=== PATIENT | female | born 1940 | race Caucasian/White ===

== ENCOUNTER 2023-02-02 14:46 | Outpatient (OUT) | payer MEDICARE, SELFPAY ==
--- NOTE | 2023-02-02 15:56 | CA_ITS ---
Patient: MAUREEN GARCÍA Exam Date: 02/02/2023 : 1940 Gender:F Ordering : GRACIA PENA Admission #: [id number] Family : Order #: [id number] CLICK HERE TO VIEW EXAM ECHOCARDIOGRAM REPORT PROCEDURE: CA ECHO DOPPLER COMPLETE INDICATIONS: Paroxysmal Atrial Fibrillation COMPARISON: None. DESCRIPTION: COMPLETE ECHOCARDIOGRAM Real-time transthoracic echocardiography with 2D, M-mode, spectral and color flow Doppler performed. QUALITY: Technical quality was good. LEFT VENTRICLE: Normal chamber size. Normal left ventricular wall thickness. LV EF: Global left ventricular systolic function is moderately decreased; visually estimated ejection fraction is 35-40%. Global hypokinesis. Abnormal septal motion; may be related to bundle branch block. DIASTOLIC: Not adequately assessed due to heart rhythm. ATRIAL SEPTUM: Inadequately seen. LEFT ATRIUM: Severe dilatation. RIGHT ATRIUM: Moderate dilatation. RIGHT VENTRICLE: Normal chamber size. Normal right ventricular systolic function. TRICUSPID VALVE: Normal mobility and thickness. Severe regurgitation. No evidence of pulmonary hypertension. RVSP 26mmHg MITRAL VALVE: Mildly thickened with normal mobility. No evidence of mitral valve stenosis. Mild mitral annular calcification. Moderate to severe mitral regurgitation. AORTIC VALVE: Normal trileaflet appearance. Moderately calcified aortic valve. Moderately diminished mobility. Doppler velocity suggests moderate aortic valve stenosis. DVI 0.38, MARGARITA 1.2cm2, Vmax 2.1m/s, Mean gradient 18mmHg.No aortic regurgitation. AORTIC ROOT: Normal diameter and appearance. PULMONIC VALVE: Normal thickness and mobility. No stenosis. No regurgitation. PERICARDIUM: No evidence of pericardial effusion. IVC: Collapses with inspirations. Normal size. CONCLUSION: 1. Global left ventricular systolic function is moderately decreased; visually estimated ejection fraction is 35 to 40%; global hypokinesis 2. Moderate to severe biatrial enlargement 3. The right ventricle is normal in size and systolic function 4. Severe tricuspid regurgitation 5. Moderate to severe mitral regurgitation 6. Moderate aortic valve stenosis Adult Echocardiography Procedure Report Left Ventricle LVEDD (3.7 - 5.6 cm): 4.32 cm LVESD (2.2 - 4.0 cm): 3.60 cm LVIVS thickness (0.6 - 1.2 cm): 0.99 cm LVPW thickness (0.5 - 1.0 cm): 0.84 cm e': 0.12 m/s E - e': 9.49 LVOT Max Gradient: 2.62 mm[Hg] LVOT Area (cm2): 0.81 m/s Peak Velocity (LVOT): 0.81 m/s Mean Velocity (LVOT): 0.58 m/s LVOT Diameter 1.97 cm Left Ventricular Ejection Fraction: 39.78 % Left Atrium LA Volume Index (2D A2C): 48.83 ml/m2 Left Atrium Systolic Dimension: 4.62 cm Mitral Valve MV E to A Ratio: 188.70 Mitral Valve A-Wave Peak Velocity: 0.01 m/s Mitral Valve E-Wave Peak Velocity: 1.10 m/s Right Ventricle RV Internal Diastolic Dimension: 2.98 cm Aorta AO Root Diam: 2.65 cm Ascending Ao Diam: 2.37 cm Aortic Valve AoV Area (Peak Adam): 1.18 cm2, 1.19 cm2 AoV Area (VTI): 1.13 cm2, 1.18 cm2 Peak Velocity(Antegrade Flow): 2.07 m/s, 2.10 m/s, 2.10 m/s, 2.09 m/s Peak Gradient(Antegrade Flow): 17.09 mm[Hg], 17.69 mm[Hg], 17.69 mm[Hg], 17.45 mm[Hg] Mean Velocity(Antegrade Flow): 1.54 m/s, 1.58 m/s, 1.56 m/s, 1.59 m/s Mean Gradient(Antegrade Flow): 10.62 mm[Hg], 11.11 mm[Hg], 10.87 mm[Hg], 11.04 mm[Hg] Velocity Time Integral: 41.45 cm, 43.82 cm, 44.76 cm, 42.19 cm Tricuspid Valve Peak Velocity (Regurgitant Flow): 2.35 m/s, 2.40 m/s, 2.40 m/s, 2.46 m/s, 2.27 m/s Pulmonic Valve Mean Gradient: 2.92 mm[Hg] Mean Velocity: 0.83 m/s Peak Velocity: 1.09 m/s, 0.82 m/s Peak Gradient: 2.72 mm[Hg], 4.74 mm[Hg] Right Atrium Right Atrium Systolic Pressure: 45.53 ml, 45.53 ml Dictated by: Carl Kuhn M.D. on 02/06/2023 at 09:56 Approved by: Carl Kuhn M.D. on 02/06/2023 at 10:00
== END 2023-02-02 14:47 | disposition home or self-care (01) ==
LOC: CARD 14:50
PROVIDERS: PCP Family Medicine; Visit Provider Nurse Practitioner
DX: I48.0 Paroxysmal atrial fibrillation (principal); I08.3 Combined rheumatic disorders of mitral, aortic and tricuspid valves
CPT/HCPCS: 93306

== ENCOUNTER 2023-02-06 16:58 | Emergency (ER) | payer MEDICARE, SELFPAY ==
--- NOTE | 2023-02-06 17:03 | CT_ITS ---
The [address] [address] Patient Name: MAUREEN GARCÍA MRN: [id number] date: 1940 Sex: F Assigned Patient Location: ER Current Patient Location: ER Accession/Order Number: [id number] Exam Date: 02/06/2023 17:27 Report Date: 02/06/2023 18:09 At the request of: NISA BRAY Procedure: CT head/brain wo con EXAMINATION: CT head/brain wo con, CT cervical spine wo con HISTORY: fall, head injury COMPARISON: None. TECHNIQUE: CT scan of the head and cervical spine was performed without IV contrast. CT dose reduction technique was used, including Automated Exposure Control. FINDINGS: There are no extra-axial fluid collections. There is no mass effect or midline shift. The cerebral ventricles and sulci are normal. The brain demonstrates normal attenuation. Basal cisterns are patent. There is bilateral subcortical and deep periventricular white matter chronic microvascular ischemia. There is mucosal thickening of the right maxillary sinus. Bilateral orbits, remaining paranasal sinuses and mastoid air cells are patent. No skull base fracture. Cervical spine: There is normal cervical lordosis. Atlantodental interval is normal. There are degenerative changes of the cervical spine fractures by endplate osteophyte and multilevel disc desiccation. No significant neural foraminal or spinal canal stenosis. No spondylolisthesis. No prevertebral soft tissue swelling. No evidence for fracture. CT/CT head/brain wo con IMPRESSION: No acute traumatic intracranial process. No cervical spine fracture or subluxation. Electronically authenticated by: ASHLEIGH CHOU Date: 02/06/2023 18:09
--- NOTE | 2023-02-06 17:03 | XR_ITS ---
The [address] [address] Patient Name: MAUREEN GARCÍA MRN: [id number] date: 1940 Sex: F Assigned Patient Location: ER Current Patient Location: ED.MAIN Accession/Order Number: [id number] Exam Date: 02/06/2023 17:27 Report Date: 02/06/2023 18:20 At the request of: NISA BRAY Procedure: XR hand NICKOLAS min 3v EXAM: XR hand NICKOLAS min 3v HISTORY: pain s/p fall COMPARISON: None. TECHNIQUE: 3 views of bilateral hands FINDINGS: Right hand: There is no acute fracture or dislocation. Degenerative changes of the PIP and DIP joints as well as first carpometacarpal joint are noted. No soft tissue abnormality. Left hand: There is no acute fracture or dislocation. Degenerative changes of the PIP and DIP joints as well as first carpometacarpal joint are noted. No soft tissue abnormality. XR/XR hand NICKOLAS min 3v IMPRESSION: No acute fracture or dislocation. Electronically authenticated by: ASHLEIGH CHOU Date: 02/06/2023 18:20
--- NOTE | 2023-02-06 17:03 | CT_ITS ---
The [address] [address] Patient Name: MAUREEN GARCÍA MRN: [id number] date: 1940 Sex: F Assigned Patient Location: ER Current Patient Location: ER Accession/Order Number: [id number] Exam Date: 02/06/2023 17:27 Report Date: 02/06/2023 18:09 At the request of: NISA BRAY Procedure: CT cervical spine wo con EXAMINATION: CT head/brain wo con, CT cervical spine wo con HISTORY: fall, head injury COMPARISON: None. TECHNIQUE: CT scan of the head and cervical spine was performed without IV contrast. CT dose reduction technique was used, including Automated Exposure Control. FINDINGS: There are no extra-axial fluid collections. There is no mass effect or midline shift. The cerebral ventricles and sulci are normal. The brain demonstrates normal attenuation. Basal cisterns are patent. There is bilateral subcortical and deep periventricular white matter chronic microvascular ischemia. There is mucosal thickening of the right maxillary sinus. Bilateral orbits, remaining paranasal sinuses and mastoid air cells are patent. No skull base fracture. Cervical spine: There is normal cervical lordosis. Atlantodental interval is normal. There are degenerative changes of the cervical spine fractures by endplate osteophyte and multilevel disc desiccation. No significant neural foraminal or spinal canal stenosis. No spondylolisthesis. No prevertebral soft tissue swelling. No evidence for fracture. CT/CT cervical spine wo con IMPRESSION: No acute traumatic intracranial process. No cervical spine fracture or subluxation. Electronically authenticated by: ASHLEIGH CHOU Date: 02/06/2023 18:09
--- NOTE | 2023-02-06 17:04 | ECG_ITS ---
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
[2023-02-06 17:05] VITALS: BP 109/75; PULSE 126; RESP 20; TEMP 36.8; O2SAT 98; BMI 28.3
--- NOTE | 2023-02-06 17:06 | ED.FALL1 ---
HPI - Fall General Chief Complaint: Fall Stated Complaint: fall Time Seen by Provider: 02/06/23 17:03 Source: patient Source comment: EMS Mode of arrival: ambulance History of Present Illness HPI Narrative: patient is a 82-year-old female presents to the Emergency Room for evaluation of injuries from a fall. Patient alert and oriented ?4 GCS of fifteen on eliquis with history of atrial fibrillation. Patient states she was walking into [place] when she tripped on the corner curb. Patient landed on her palms and struck the left side of her forehead and chin. She denies loss of consciousness, denies dental injury. She has a laceration to the middle finger at the PIP joint dorsal aspect. Bleeding controlled on arrival. She denies any chest pain or shortness of breath. Patient reports mild headache, denies neck pain. She appears in no distress. MD complaint: Reports fall Fall from: Reports standing Place fall occurred: Reports street Loss of consciousness: none Context: Reports tripped/slipped Location of injury: Reports head Related Data Home Medications Medication Instructions Recorded Confirmed amlodipine 10 mg tablet 10 mg PO Q24H 02/06/23 02/06/23 apixaban 5 mg tablet (Eliquis) 5 mg PO Q12H 02/06/23 02/06/23 atorvastatin 20 mg tablet 20 mg PO Q24H 02/06/23 02/06/23 azathioprine 50 mg tablet 50 mg PO Q24H 02/06/23 02/06/23 azelastine 137 mcg (0.1 %) nasal 137 mcg intranasal Q12H 02/06/23 02/06/23 spray aerosol balsalazide 750 mg capsule 750 mg PO Q24H 02/06/23 02/06/23 bupropion HCl 150 mg 24 hr tablet, 150 mg PO Q24H 02/06/23 02/06/23 extended release levothyroxine 100 mcg tablet 100 mcg PO Q24H 02/06/23 02/06/23 (Synthroid) losartan 50 mg tablet 50 mg PO Q24H 02/06/23 02/06/23 metoprolol succinate 25 mg 25 mg PO Q12H 02/06/23 02/06/23 tablet,extended release 24 hr pantoprazole 40 mg tablet,delayed 40 mg PO Q12H 02/06/23 02/06/23 release potassium chloride 8 mEq 8 meq PO Q24H 02/06/23 02/06/23 tablet,extended release venlafaxine 75 mg capsule,extended 75 mg PO Q24H 02/06/23 02/06/23 release 24 hr Allergies Allergy/AdvReac Type Severity Reaction Status Date / Time adhesive tape Allergy Mild Verified 02/06/23 17:03 Sulfa (Sulfonamide AdvReac Intermediate Verified 02/06/23 17:03 Antibiotics) Review of Systems ROS Constitutional Denies: fever or chills Eyes Denies: change in vision or blurry vision (history of macular degeneration denies any acute symptoms) Ears, nose, mouth, and throat Denies: throat pain Cardiovascular Denies: chest pain or palpitations Respiratory Denies: shortness of breath or cough Gastrointestinal Denies: abdominal pain or nausea Genitourinary Denies: painful urination or urinary frequency Musculoskeletal Denies: back pain, neck pain or extremity pain Integumentary/Breast Denies: rash, itching or redness Neurological Denies: headache Psychiatric Denies: anxiety or mood swings Allergic/Immunologic Denies: hives [facility] Medical History (Updated 02/06/23 @ 18:20 by NOAH Ortega) Social History Smoking status: Former smoker Exam Narrative Exam Narrative: Nurses note and vital signs reviewed and patient is not hypoxic. General: The patient appears well and in no apparent distress. Patient is resting comfortably on cart. GCS = 15. Skin: Warm, dry, no pallor noted.superficial abrasion to the left brow, left chin. Bleeding controlled, subtle bruising noted. Patient has a near full-thickness abrasion/laceration less than 1 cm to the dorsal aspect of the right ring middle finger at the PIP joint. Bleeding controlled.abrasions bilateral palms Head: Normocephalic,evidence of left frontal contusion and abrasion. Neck: Supple, trachea mid-line, no tenderness, no lymphadenopathy. Full ROM and no cervical spinal tenderness. The patient has no step-offs or crepitus noted Eyes: PERRLA, EOMI, history of cataract surgery ENT: TM's clear, no hemotympanum detected, no blood in posterior oropharynx Cardiovascular: Irregularly irregular with history of A-fib. Respiratory: Patient is in no distress, no accessory muscle use, lungs are clear to auscultation, no wheezing, rales or rhonchi Chest Wall: no tenderness, no flail chest, contusion, abrasion, or signs of trauma. Back: Back has no evidence of trauma, including contusion, abrasion, swelling or ecchymosis. The patient had no evidence of step-offs or creptitace noted. No tenderness to palpation. Negative straight leg raise bilaterally. Musculoskeletal: normal ROM, no tenderness, no swelling. localized abrasion and tenderness bilateral palms/base of thumb. Denies any wrist pain bilaterally. Pulses at femoral, DP, PT, and popiteal were 2+ bilaterally. Moves all four extremities in all modalities with 5/5 strength. GI: Normal bowel sounds, no tenderness to palpation, no masses appreciated. No rebound, guarding, or rigidity noted. Neurological: A&O x4, normal equal director mba strength, normal speech, normal coordination, normal motor, normal sensory. Psychiatric: Cooperative Constitutional Vital Signs, click to edit/add: Last Vital Signs Temp 98.2 F 02/06/23 17:05 Pulse 126 H 02/06/23 17:05 Resp 20 02/06/23 17:05 BP 109/75 02/06/23 17:05 Pulse Ox 98 02/06/23 17:26 O2 Del Method Room Air 02/06/23 17:26 Course Vital Signs Vital signs: Vital Signs Temperature 98.2 F 02/06/23 17:05 Pulse Rate 126 H 02/06/23 17:05 Respiratory Rate 20 02/06/23 17:05 Blood Pressure 109/75 02/06/23 17:05 Pulse Oximetry 98 02/06/23 17:05 Oxygen Delivery Method Room Air 02/06/23 17:05 Temperature 98.2 F 02/06/23 17:05 Pulse Rate 126 H 02/06/23 17:05 Respiratory Rate 20 02/06/23 17:05 Blood Pressure 109/75 02/06/23 17:05 Pulse Oximetry 98 02/06/23 17:26 Oxygen Delivery Method Room Air 02/06/23 17:26 MDM - Fall MDM Narrative Medical decision making narrative: tetanus shot updated, wounds cleansed and dressed with bacitracin. Recommend x-rays bilateral hands given fall with abrasions and tenderness to the bilateral palms and right middle finger. CT will be performed ahead along with CT C-spine given eliquis use and head trauma CT negative. Cranial hemorrhage, CT C-spine without evidence of fracture. X-ray of bilateral hands preliminary report without evidence of fracture, prominent CMC arthritis bilateral thumb joints. Patient able to open and close hands, no evidence of extensor tendon disruption. Sutures placed as noted above with need for suture removal in ten days discussed. Verbal and written closed head injury instructions reviewed, patient will need to follow-up with her family doctor or return to Emergency Room for suture removal in ten days. The patient is to followup with primary care physician in next 2-3 days or to return to the emergency department should any of the signs or symptoms worsen or new symptoms develop. Patient had questions answered. The patient agrees with the following Diagnosis and Treatment plan and the patient will be discharged home. Lab Data Labs: Lab Results 02/06/23 Range/Units 17:18 WBC 5.7 (4.0-11.0) 10^3/uL RBC 3.61 L (4.20-5.40) 10^6/uL Hgb 11.8 L (12.0-16.0) g/dL Hct 34.9 L (36.0-48.0) % MCV 96.7 (81.0-99.0) fL MCH 32.7 (26.7-34.0) pg MCHC 33.8 (29.9-35.2) g/dL RDW 14.3 (11.0-15.0) % Plt Count 203 (150-450) 10^3/uL MPV 9.4 L (9.5-13.5) fL Neut % (Auto) 65.1 (43.0-75.0) % Lymph % (Auto) 21.9 (20.5-60.0) % Gilchrist % (Auto) 10.3 (1.7-12.0) % Eos % (Auto) 1.8 (0.9-7.0) % Baso % (Auto) 0.4 (0.2-2.0) % Neut # (Auto) 3.7 (1.4-6.5) 10^3/uL Lymph # (Auto) 1.3 (1.2-3.8) 10^3/uL Gilchrist # (Auto) 0.6 (0.3-0.8) 10^3/uL Eos # (Auto) 0.1 (0.0-0.7) 10^3/uL Baso # (Auto) 0.0 (0.0-0.1) 10^3/uL Abs Immat Gran (auto) 0.03 (0.00-0.03) 10^3/uL Imm/Tot Granulo (auto) 0.5 (0.0-0.5) % PT 10.3 (9.0-11.6) sec INR 0.97 APTT 24.0 (22.3-36.2) sec Sodium 141 (136-145) mmol/L Potassium 4.7 (3.5-5.1) mmol/L Chloride 106 (98-107) mmol/L Carbon Dioxide 30.5 (21.0-32.0) mmol/L Anion Gap 9.2 BUN 14.0 (7.0-18.0) mg/dL Creatinine 0.93 (0.55-1.02) mg/dL Est GFR ( Amer) >60 (>=60) Est GFR (Non-Af Amer) 58 L (>=60) BUN/Creatinine Ratio 15.1 Glucose 99 (74-106) mg/dL Calcium 8.9 (8.5-10.1) mg/dL Imaging Data CT scan - head: Radiologist's impression: Procedure: CT head/brain wo con EXAMINATION: CT head/brain wo con, CT cervical spine wo con HISTORY: fall, head injury COMPARISON: None. TECHNIQUE: CT scan of the head and cervical spine was performed without IV contrast. CT dose reduction technique was used, including Automated Exposure Control. FINDINGS: There are no extra-axial fluid collections. There is no mass effect or midline shift. The cerebral ventricles and sulci are normal. The brain demonstrates normal attenuation. Basal cisterns are patent. There is bilateral subcortical and deep periventricular white matter chronic microvascular ischemia. There is mucosal thickening of the right maxillary sinus. Bilateral orbits, remaining paranasal sinuses and mastoid air cells are patent. No skull base fracture. Cervical spine: There is normal cervical lordosis. Atlantodental interval is normal. There are degenerative changes of the cervical spine fractures by endplate osteophyte and multilevel disc desiccation. No significant neural foraminal or spinal canal stenosis. No spondylolisthesis. No prevertebral soft tissue swelling. No evidence for fracture. IMPRESSION: No acute traumatic intracranial process. No cervical spine fracture or subluxation. Electronically authenticated by: [facility] Date: 02/06/2023 18:09 xray bilateral hands: Radiologist's impression: Procedure: XR hand NICKOLAS min 3v EXAM: XR hand NICKOLAS min 3v HISTORY: pain s/p fall COMPARISON: None. TECHNIQUE: 3 views of bilateral hands FINDINGS: Right hand: There is no acute fracture or dislocation. Degenerative changes of the PIP and DIP joints as well as first carpometacarpal joint are noted. No soft tissue abnormality. Left hand: There is no acute fracture or dislocation. Degenerative changes of the PIP and DIP joints as well as first carpometacarpal joint are noted. No soft tissue abnormality. IMPRESSION: No acute fracture or dislocation. Electronically authenticated by: ASHLEIGHANIYAH PRIETOBandhappy Date: 02/06/2023 18:20 ECG Data Attestation: I personally reviewed and interpreted this ECG as follows: Interpretation: EKG interpretation: Emergency Department physician interpretation,Afib with RVR 119, right bundle branch block, no ST elevation. Discharge Plan Discharge Chief Complaint: Fall Clinical Impression: Closed head injury, Laceration of right middle finger, Abrasion of face and extremities Patient Disposition: Home, Self-Care Time of Disposition Decision: 18:19 Condition: Good Prescriptions / Home Meds: No Action amlodipine 10 mg tablet 10 mg PO Q24H Eliquis 5 mg tablet 5 mg PO Q12H metoprolol succinate 25 mg tablet extended release 24 hr 25 mg PO Q12H atorvastatin 20 mg tablet 20 mg PO Q24H azathioprine 50 mg tablet 50 mg PO Q24H azelastine 137 mcg (0.1 %) aerosol,spray 137 mcg INTRANASAL Q12H balsalazide 750 mg capsule 750 mg PO Q24H bupropion HCl 150 mg tablet extended release 24 hr 150 mg PO Q24H levothyroxine [Synthroid] 100 mcg tablet 100 mcg PO Q24H losartan 50 mg tablet 50 mg PO Q24H pantoprazole 40 mg tablet,delayed release (DR/EC) 40 mg PO Q12H potassium chloride 8 mEq tablet extended release 8 meq PO Q24H venlafaxine 75 mg capsule,extended release 24hr 75 mg PO Q24H Instructions: Head Injury (ED), Finger Laceration (ED) Additional Instructions: recommend suture removal in ten days, wear splint daily. Keep wound clean and dry, water may run over abrasions and laceration in two days. . No submerging wounds. Stand Alone Forms: Portal Instructions Referrals: Sonali Ponce MD [Primary Care Provider] - 1 week Procedures ED Laceration Laceration Laceration 1: Additional comments: Laceration repair: Done under sterile conditions. right middle finger PIP joint. The use of Betadine was used to prep and clean the area. Local injection with lidocaine 1% was used, approximately 1 cc. The wound was irrigated copiously with normal saline. The wound was explored there was no evidence of foreign material. no evidence of extensor tendon involvement, no joint capsule penetration visible. The laceration was approximated with 5-0 prolene. 3 simple interrupted sutures were placed. Patient tolerated the procedure well. The patient was neurovascularly intact post. the patient had bacitracin applied to the laceration and a dry sterile dressing was place. The patient will need to follow-up in the next 10 days for removal. patient placed in a aluminum foam splint to immobilize the PIP joint for optimal wound healing. We discussed very gentle flexion of the DIP joint as tolerated given her arthritis and flexion of the MCP joint to help combat stiffness. Discussed need to return to range of motion after suture removal and wound is healed. Patient verbalizes understanding.
[2023-02-06 17:26] VITALS: O2SAT 98
[2023-02-06 17:26] LABS: Basophils Percent Auto 0.4 % (0.2-2.0); Eosinophils Absolute Auto 0.1 10^3/uL (0.0-0.7); Eosinophils Percent Auto 1.8 % (0.9-7.0); Hematocrit 34.9 % (36.0-48.0); Hemoglobin 11.8 g/dL (12.0-16.0); Immature Granulocytes Abs Auto 0.03 10^3/uL (0.00-0.03); Immature Granulocytes Pct Auto 0.5 % (0.0-0.5); Lymphocytes Absolute Auto 1.3 10^3/uL (1.2-3.8); Lymphocytes Percent Auto 21.9 % (20.5-60.0); Mean Corpuscular HGB Conc 33.8 g/dL (29.9-35.2); Mean Corpuscular Hemoglobin 32.7 pg (26.7-34.0); Mean Corpuscular Volume 96.7 fL (81.0-99.0); Mean Platelet Volume 9.4 fL (9.5-13.5); Monocytes Absolute Auto 0.6 10^3/uL (0.3-0.8); Monocytes Percent Auto 10.3 % (1.7-12.0); Neutrophils Absolute Auto 3.7 10^3/uL (1.4-6.5); Neutrophils Percent Auto 65.1 % (43.0-75.0); Platelet Count 203 10^3/uL (150-450); Red Blood Count 3.61 10^6/uL (4.20-5.40); Red Cell Distribution Width 14.3 % (11.0-15.0); White Blood Count 5.7 10^3/uL (4.0-11.0)
[2023-02-06 17:32] LABS: Anion Gap 9.2; BUN Creatinine Ratio 15.1; Calcium 8.9 mg/dL (8.5-10.1); Carbon Dioxide 30.5 mmol/L (21.0-32.0); Chloride 106 mmol/L (98-107); Estimated GFR (African America >60 (>=60); Estimated GFR (Non-African Ame 58 (>=60); Glucose 99 mg/dL (74-106); Potassium 4.7 mmol/L (3.5-5.1); Sodium 141 mmol/L (136-145)
[2023-02-06 17:33] VITALS: PULSE 119
[2023-02-06 17:40] LABS: INR 0.97; Prothrombin Time 10.3 sec (9.0-11.6)
[2023-02-06] MEDS: BACITRACIN OINTMENT 28.4 GM TUBE 1 APPLIC TOPICAL (17:45)
[2023-02-06] MEDS: ADACEL DIPH,PERTUSS(ACELL),TET VAC/PF 0.5 ML ADULT SYRINGE IM (17:46)
[2023-02-06] MEDS: LIDOCAINE HCL 1% PF 20 MG/2 ML VIAL INJ (17:53)
[2023-02-06 18:35] VITALS: BP 126/86; PULSE 116; RESP 18; O2SAT 98
== END 2023-02-06 18:42 | disposition home or self-care (01) ==
PROVIDERS: Personal Emergency Response Attendant; Emergency Provider Emergency Medicine; PCP Family Medicine
DX: S61.212A Laceration without foreign body of right middle finger without damage to nail, initial encounter (principal); S09.8XXA Other specified injuries of head, initial encounter; S00.81XA Abrasion of other part of head, initial encounter; S60.512A Abrasion of left hand, initial encounter; S60.511A Abrasion of right hand, initial encounter; Z79.01 Long term (current) use of anticoagulants; I48.91 Unspecified atrial fibrillation; W01.10XA Fall on same level from slipping, tripping and stumbling with subsequent striking against unspecified object, initial encounter; Z23 Encounter for immunization; Z87.891 Personal history of nicotine dependence; Z79.899 Other long term (current) drug therapy; Z79.890 Hormone replacement therapy
CPT/HCPCS: 12001; 36415; 70450; 72125; 73130; 80048; 85025; 85610; 85730; 90471; 90715; 93005; 99285

== ENCOUNTER 2023-02-20 14:22 | Outpatient (OUT) | payer MEDICARE, SELFPAY ==
[2023-02-20 14:47] LABS: Basophils Percent Auto 0.4 % (0.2-2.0); Eosinophils Absolute Auto 0.1 10^3/uL (0.0-0.7); Eosinophils Percent Auto 1.8 % (0.9-7.0); Hematocrit 36.1 % (36.0-48.0); Hemoglobin 12.2 g/dL (12.0-16.0); Immature Granulocytes Abs Auto 0.03 10^3/uL (0.00-0.03); Immature Granulocytes Pct Auto 0.4 % (0.0-0.5); Lymphocytes Absolute Auto 1.7 10^3/uL (1.2-3.8); Lymphocytes Percent Auto 24.1 % (20.5-60.0); Mean Corpuscular HGB Conc 33.8 g/dL (29.9-35.2); Mean Corpuscular Hemoglobin 32.1 pg (26.7-34.0); Mean Platelet Volume 9.6 fL (9.5-13.5); Monocytes Absolute Auto 0.6 10^3/uL (0.3-0.8); Monocytes Percent Auto 8.6 % (1.7-12.0); Neutrophils Absolute Auto 4.6 10^3/uL (1.4-6.5); Neutrophils Percent Auto 64.7 % (43.0-75.0); Platelet Count 304 10^3/uL (150-450); Red Cell Distribution Width 14.2 % (11.0-15.0); White Blood Count 7.1 10^3/uL (4.0-11.0)
[2023-02-20 15:12] LABS: Anion Gap 15.1; BUN Creatinine Ratio 15.5; Calcium 8.8 mg/dL (8.5-10.1); Carbon Dioxide 26.9 mmol/L (21.0-32.0); Chloride 103 mmol/L (98-107); Estimated GFR (African America 58 (>=60); Estimated GFR (Non-African Ame 48 (>=60); Glucose 96 mg/dL (74-106); Sodium 140 mmol/L (136-145)
== END 2023-02-20 14:23 | disposition home or self-care (01) ==
LOC: LAB 14:25
PROVIDERS: PCP Family Medicine; Visit Provider Internal Medicine Cardiovascular Disease
DX: Z01.818 Encounter for other preprocedural examination (principal)
CPT/HCPCS: 36415; 80048; 85025

== ENCOUNTER 2023-04-10 14:12 | Emergency (ER) | payer MEDICARE, SELFPAY ==
[2023-04-10] VITALS (14 sets, daily range): BP systolic 90–121; BP diastolic 45–69; PULSE 0–77; RESP 9–21; TEMP 36.7; O2SAT 94–100; BMI 27.4
--- NOTE | 2023-04-10 14:29 | ECG_ITS ---
The 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
--- NOTE | 2023-04-10 14:29 | XR_ITS ---
The [address] [address] Patient Name: MAUREEN GARCÍA MRN: [id number] date: 1940 Sex: F Assigned Patient Location: ED.MAIN Current Patient Location: ED.MAIN Accession/Order Number: [id number] Exam Date: 04/10/2023 14:45 Report Date: 04/10/2023 15:15 At the request of: BECKY LOPEZ Procedure: XR chest 1V EXAMINATION: XR chest 1V HISTORY: near-syncope COMPARISON: No relevant comparison available. TECHNIQUE: AP portable FINDINGS: LUNGS: No significant pulmonary parenchymal abnormalities. VASCULATURE: No increased pulmonary vasculature. PLEURA: No pneumothorax, effusion, or pleural thickening. CARDIAC: No cardiomegaly or cardiac silhouette abnormality. MEDIASTINUM: No visible mass or adenopathy. BONES: No fracture or visible bone lesion. OTHER: Retrocardiac opacity possibly a hiatal hernia XR/XR chest 1V IMPRESSION: Clear lungs Electronically authenticated by: BOBBY MOON Date: 04/10/2023 15:15
--- NOTE | 2023-04-10 14:35 | ED.DIZZY1 ---
HPI - Dizziness General Chief Complaint: Dizziness Stated Complaint: DIZZINESS/ GENERAL WEAKNESS Time Seen by Provider: 04/10/23 14:28 History of Present Illness HPI Narrative: Patient was out to lunch with her family when she developed dizziness. They brought her to the ED for evaluation. Her HR is only in the 20s. She has atrial fibrillation and recently saw Dr Padron on 03/27. She said that he put the patient on QID amiodarone, increased her metoprolol and started her on Eliquis. She said that within a few days of the med change she began to feel weakness and dizziness. She denied any chest pain or shortness of breath. Related Data Home Medications Medication Instructions Recorded Confirmed amlodipine 10 mg tablet 10 mg PO Q24H 02/06/23 04/10/23 apixaban 5 mg tablet (Eliquis) 5 mg PO Q12H 02/06/23 04/10/23 atorvastatin 20 mg tablet 20 mg PO Q24H 02/06/23 04/10/23 azathioprine 50 mg tablet 50 mg PO Q24H 02/06/23 04/10/23 azelastine 137 mcg (0.1 %) nasal 137 mcg intranasal Q12H 02/06/23 04/10/23 spray aerosol balsalazide 750 mg capsule 750 mg PO Q24H 02/06/23 04/10/23 bupropion HCl 150 mg 24 hr tablet, 150 mg PO Q24H 02/06/23 04/10/23 extended release levothyroxine 100 mcg tablet 100 mcg PO Q24H 02/06/23 04/10/23 (Synthroid) losartan 50 mg tablet 50 mg PO Q24H 02/06/23 04/10/23 metoprolol succinate 25 mg 25 mg PO Q12H 02/06/23 04/10/23 tablet,extended release 24 hr pantoprazole 40 mg tablet,delayed 40 mg PO Q12H 02/06/23 04/10/23 release potassium chloride 8 mEq 8 meq PO Q24H 02/06/23 04/10/23 tablet,extended release venlafaxine 75 mg capsule,extended 75 mg PO Q24H 02/06/23 04/10/23 release 24 hr amiodarone 200 mg tablet 400 mg PO Q12H 04/10/23 04/10/23 Allergies Allergy/AdvReac Type Severity Reaction Status Date / Time adhesive tape Allergy Mild Verified 02/06/23 17:03 Sulfa (Sulfonamide AdvReac Intermediate Verified 02/06/23 17:03 Antibiotics) [facility] Medical History (Updated 04/10/23 @ 16:07 by Becky Lopez) Cataract ?H26.9 - Unspecified cataract (ICD-10) Cataract ?H26.9 - Unspecified cataract (ICD-10) Social History Smoking status: Never smoker Exam Narrative Exam Narrative: Nurses notes and vital signs reviewed and patient is not hypoxic. afebrile General: No apparent distress. Skin: Warm, dry, no pallor noted. Head: Normocephalic, atraumatic. Cardiovascular: Severe bradycardia - long pauses with rate in the 20s Respiratory: No accessory muscle use or respiratory distress. Lungs are clear to auscultation, no wheezing, rales or rhonchi Musculoskeletal: normal ROM, no calf or popliteal tenderness, no lower extremity edema/swelling GI: Abdomen is soft, non-distended. Normal bowel sounds. No tenderness to palpation. No rebound, guarding, or rigidity noted. Neurological: A&O x4. No cranial nerve dysfunction observed. No truncal ataxia. Moves all extremities. Sensation intact. Psychiatric: Cooperative and interactive. Normal mood and affect. Constitutional Vital Signs, click to edit/add: Last Vital Signs Temp 98.1 F 04/10/23 14:41 Pulse 46 L 04/10/23 15:40 Resp 21 04/10/23 15:40 BP 112/47 L 04/10/23 15:30 Pulse Ox 96 04/10/23 15:40 O2 Del Method Nasal Cannula 04/10/23 15:00 O2 Flow Rate 4 04/10/23 15:00 Course Vital Signs Vital signs: Vital Signs Pulse Oximetry 99 04/10/23 14:23 Temperature 98.1 F 04/10/23 14:41 Pulse Rate 46 L 04/10/23 15:40 Respiratory Rate 21 04/10/23 15:40 Blood Pressure 112/47 L 04/10/23 15:30 Pulse Oximetry 96 04/10/23 15:40 Oxygen Delivery Method Nasal Cannula 04/10/23 15:00 Oxygen Delivery Flow Rate 4 04/10/23 15:00 MDM - Dizziness MDM Narrative Medical decision making narrative: Patient's HR is only in the 20s. She has slow atrial fibrillation with heart block. Pacer pads placed and the patient was immediately moved to room 5. Patient was placed on monitoring manager and EKG obtained. Blood drawn and sent for evaluation. CXR obtained Call immediately placed to Dr Padron, grey iron molder for Cardiology at [facility]. He and I discussed the case, he reviewed the patient's chart and wanted the patient transferred to the clinical laboratory manager at [facility] for pacemaker placement. I called and spoke with the [facility] transfer line while Dr Padron spoke with the clinical laboratory manager. Arrangements were made for the patient to be sent to [facility] ED for evaluation and I spoke with Dr Loo in the ED who accepted the patient's transfer. We could not fly due to weather - both [facility] and [facility] turned down our request for flight. [facility] also declined our request and the patient was scheduled to be taken by [facility] to [facility] with ETA 415pm - [facility] made aware of the delay due to transportation issues. The patient's HR increased to the low 40s during ED stay. Her BP remained stable for transfer during the ED stay. She is agreeable to transfer. Lab Data Attestation: I reviewed the patient's lab results. Labs: Lab Results 04/10/23 Range/Units 14:36 WBC 9.3 (4.0-11.0) 10^3/uL RBC 3.87 L (4.20-5.40) 10^6/uL Hgb 12.2 (12.0-16.0) g/dL Hct 37.5 (36.0-48.0) % MCV 96.9 (81.0-99.0) fL MCH 31.5 (26.7-34.0) pg MCHC 32.5 (29.9-35.2) g/dL RDW 15.0 (11.0-15.0) % Plt Count 281 (150-450) 10^3/uL MPV 10.1 (9.5-13.5) fL Neut % (Auto) 62.9 (43.0-75.0) % Lymph % (Auto) 25.9 (20.5-60.0) % Kemper % (Auto) 8.8 (1.7-12.0) % Eos % (Auto) 1.0 (0.9-7.0) % Baso % (Auto) 0.5 (0.2-2.0) % Neut # (Auto) 5.9 (1.4-6.5) 10^3/uL Lymph # (Auto) 2.4 (1.2-3.8) 10^3/uL Kemper # (Auto) 0.8 (0.3-0.8) 10^3/uL Eos # (Auto) 0.1 (0.0-0.7) 10^3/uL Baso # (Auto) 0.1 (0.0-0.1) 10^3/uL Abs Immat Gran (auto) 0.08 H (0.00-0.03) 10^3/uL Imm/Tot Granulo (auto) 0.9 H (0.0-0.5) % Sodium 140 (136-145) mmol/L Potassium 5.0 (3.5-5.1) mmol/L Chloride 103 (98-107) mmol/L Carbon Dioxide 26.8 (21.0-32.0) mmol/L Anion Gap 15.2 BUN 18.0 (7.0-18.0) mg/dL Creatinine 1.44 H (0.55-1.02) mg/dL Est GFR ( Amer) 42 L (>=60) Est GFR (Non-Af Amer) 35 L (>=60) BUN/Creatinine Ratio 12.5 Glucose 151 H (74-106) mg/dL Calcium 8.9 (8.5-10.1) mg/dL Magnesium 2.2 (1.8-2.4) mg/dL Total Bilirubin 0.5 (0.2-1.0) mg/dL AST 18 (15-37) U/L ALT 20 (14-59) U/L Alkaline Phosphatase 52 (46-116) U/L Troponin I High Sens 4.8 (4.0-51.3) pg/mL NT-Pro-B Natriuret Pep 3056.0 H* (<=1800.0) pg/mL Total Protein 6.6 (6.4-8.2) g/dL Albumin 3.5 (3.4-5.0) g/dL Globulin 3.1 g/dL Albumin/Globulin Ratio 1.1 Imaging Data Chest x-ray: Radiologist's impression: Patient Name: MAUREEN GARCÍA MRN: [facility]:[id number] date: 1940 Sex: F Assigned Patient Location: ED.MAIN Current Patient Location: ED.MAIN Accession/Order Number: [id number] Exam Date: 04/10/2023 14:45 Report Date: 04/10/2023 15:15 At the request of: BECKY LOPEZ Procedure: XR chest 1V EXAMINATION: XR chest 1V HISTORY: near-syncope COMPARISON: No relevant comparison available. TECHNIQUE: AP portable FINDINGS: LUNGS: No significant pulmonary parenchymal abnormalities. VASCULATURE: No increased pulmonary vasculature. PLEURA: No pneumothorax, effusion, or pleural thickening. CARDIAC: No cardiomegaly or cardiac silhouette abnormality. MEDIASTINUM: No visible mass or adenopathy. BONES: No fracture or visible bone lesion. OTHER: Retrocardiac opacity possibly a hiatal hernia IMPRESSION: Clear lungs Electronically authenticated by: BOBBY MOON Date: 04/10/2023 15:15 ECG Data Attestation: I personally reviewed and interpreted this ECG as follows: Interpretation: EKG interpretation: Emergency Department physician interpretation. Heart block with slow atrial fibrillation at 23bpm. No ST segment elevation or depression. Critical Care Time Critical Care Time Critical Care Time: Yes Total Critical Care Time: 55 Attestation: Critical Care Time: 55 minutes, critical care time is separate from any procedures that are performed. The following was considered in the determination of critical care but not limited to the level medical decision-making, intensive cardiac and/or respiratory monitor, frequent vital sign monitoring, evaluation of laboratory studies, evaluation of a radiographic studies, oxygen monitoring and constant monitoring. Discharge Plan Discharge Chief Complaint: Dizziness Clinical Impression: Atrial fibrillation with slow ventricular response, Heart block atrioventricular Patient Disposition: [facility] Time of Disposition Decision: 14:36 Discharge Location: [facility]
[2023-04-10] MEDS: 0.9 % SODIUM CHLORIDE 1,000 ML 999 ML IV (14:45)
[2023-04-10] MEDS: ATROPINE SULFATE 0.4 MG/ML VIAL IVP (14:45)
[2023-04-10 14:48] LABS: Basophils Absolute Auto 0.1 10^3/uL (0.0-0.1); Basophils Percent Auto 0.5 % (0.2-2.0); Eosinophils Absolute Auto 0.1 10^3/uL (0.0-0.7); Hematocrit 37.5 % (36.0-48.0); Hemoglobin 12.2 g/dL (12.0-16.0); Immature Granulocytes Abs Auto 0.08 10^3/uL (0.00-0.03); Immature Granulocytes Pct Auto 0.9 % (0.0-0.5); Lymphocytes Absolute Auto 2.4 10^3/uL (1.2-3.8); Lymphocytes Percent Auto 25.9 % (20.5-60.0); Mean Corpuscular HGB Conc 32.5 g/dL (29.9-35.2); Mean Corpuscular Hemoglobin 31.5 pg (26.7-34.0); Mean Corpuscular Volume 96.9 fL (81.0-99.0); Mean Platelet Volume 10.1 fL (9.5-13.5); Monocytes Absolute Auto 0.8 10^3/uL (0.3-0.8); Monocytes Percent Auto 8.8 % (1.7-12.0); Neutrophils Absolute Auto 5.9 10^3/uL (1.4-6.5); Neutrophils Percent Auto 62.9 % (43.0-75.0); Platelet Count 281 10^3/uL (150-450); Red Blood Count 3.87 10^6/uL (4.20-5.40); White Blood Count 9.3 10^3/uL (4.0-11.0)
[2023-04-10 15:10] LABS: Alanine Aminotransferase 20 U/L (14-59); Albumin Globulin Ratio 1.1; Albumin Level 3.5 g/dL (3.4-5.0); Alkaline Phosphatase 52 U/L (46-116); Anion Gap 15.2; Aspartate Amino Transferase 18 U/L (15-37); BUN Creatinine Ratio 12.5; Bilirubin Total 0.5 mg/dL (0.2-1.0); Calcium 8.9 mg/dL (8.5-10.1); Carbon Dioxide 26.8 mmol/L (21.0-32.0); Chloride 103 mmol/L (98-107); Estimated GFR (African America 42 (>=60); Estimated GFR (Non-African Ame 35 (>=60); Globulin 3.1 g/dL; Glucose 151 mg/dL (74-106); Sodium 140 mmol/L (136-145); Total Protein 6.6 g/dL (6.4-8.2); Troponin I High Sensitivity 4.8 pg/mL (4.0-51.3)
[2023-04-10 15:19] LABS: Magnesium 2.2 mg/dL (1.8-2.4)
--- NOTE | 2023-04-10 15:49 | PC.NURSE ---
Alfonso at [facility] ER called and asked for report. Updatedhim with current situation and gave him an ETA of approx 1700 hrs. He understood with no questions and asked if there were any changes to contact him .
== END 2023-04-10 16:50 | disposition short-term general hospital (02) ==
PROVIDERS: Emergency Provider Emergency Medicine; PCP Family Medicine
DX: I48.91 Unspecified atrial fibrillation (principal); I44.30 Unspecified atrioventricular block; Z79.01 Long term (current) use of anticoagulants; Z79.890 Hormone replacement therapy; Z79.899 Other long term (current) drug therapy
CPT/HCPCS: 36415; 71045; 80053; 83735; 83880; 84484; 85025; 93005; 96374; 99285

== ENCOUNTER 2023-04-27 12:10 | Emergency (ER) | payer MEDICARE, SELFPAY ==
[2023-04-27 12:15] VITALS: PULSE 76; RESP 18; TEMP 36.8; O2SAT 99; BMI 28.3
--- NOTE | 2023-04-27 12:22 | ED_ITS ---
HPI - Fall General Chief Complaint: Fall Stated Complaint: FALL Time Seen by Provider: 04/27/23 12:12 Source: patient Mode of arrival: walk-in History of Present Illness HPI Narrative: 82-year-old female presents for a fall. She hit her right for head and has pain in her left hand and left great toe. She doesn't have neck pain and has no chest pain or shortness of breath. She states she falls about every month or two. No syncope today. She is on Eliquis. No LOC or vomiting. Related Data Home Medications Medication Instructions Recorded Confirmed amlodipine 10 mg tablet 10 mg PO Q24H 02/06/23 04/27/23 apixaban 5 mg tablet (Eliquis) 5 mg PO Q12H 02/06/23 04/27/23 atorvastatin 20 mg tablet 20 mg PO Q24H 02/06/23 04/27/23 azathioprine 50 mg tablet 50 mg PO Q24H 02/06/23 04/27/23 azelastine 137 mcg (0.1 %) nasal 137 mcg intranasal Q12H 02/06/23 04/27/23 spray aerosol balsalazide 750 mg capsule 750 mg PO Q24H 02/06/23 04/27/23 bupropion HCl 150 mg 24 hr tablet, 150 mg PO Q24H 02/06/23 04/27/23 extended release levothyroxine 100 mcg tablet 100 mcg PO Q24H 02/06/23 04/27/23 (Synthroid) losartan 50 mg tablet 50 mg PO Q24H 02/06/23 04/27/23 metoprolol succinate 25 mg 25 mg PO Q12H 02/06/23 04/27/23 tablet,extended release 24 hr pantoprazole 40 mg tablet,delayed 40 mg PO Q12H 02/06/23 04/27/23 release potassium chloride 8 mEq 8 meq PO Q24H 02/06/23 04/27/23 tablet,extended release venlafaxine 75 mg capsule,extended 75 mg PO Q24H 02/06/23 04/27/23 release 24 hr amiodarone 200 mg tablet 400 mg PO Q24H 04/10/23 04/27/23 dapagliflozin propanediol 10 mg 10 mg PO DAILY 04/27/23 04/27/23 tablet (Farxiga) Allergies Allergy/AdvReac Type Severity Reaction Status Date / Time adhesive tape Allergy Mild Verified 04/27/23 12:15 Sulfa (Sulfonamide AdvReac Intermediate Verified 04/27/23 12:15 Antibiotics) Review of Systems ROS Narrative A ten point review of systems is negative except as noted above. [facility] Medical History (Updated 04/27/23 @ 13:28 by Epifanio Dickey MD) Cataract ?H26.9 - Unspecified cataract (ICD-10) Cataract ?H26.9 - Unspecified cataract (ICD-10) Social History Smoking status: Never smoker Exam Narrative Exam Narrative: Nurses note and vital signs reviewed and patient is not hypoxic. General: The patient appears well and in no apparent distress. Patient is resting comfortably on cart. Skin: Warm, dry, no pallor noted. There is no rash noted. Head: Normocephalic, there is bruising above the right eye as well as an abrasion. No laceration. Cervical spine nontender. Eye: Normal conjunctiva, no drainage Ears, Nose, Mouth, and Throat: oral mucosa is moist. Nares patent. bruising and slight swelling to the right lower lip. No laceration. Cardiovascular: Regular Rate and Rhythm Respiratory: Patient is in no distress, no accessory muscle use, lungs are clear to auscultation, no wheezing, rales or rhonchi Back: non-tender including cervical and thoracic spines. GI: soft and nontender Musculoskeletal: she has some tenderness in her left hallux and in the left hand base of the thumb. Neurological: A&O, normal speech Psychiatric: Cooperative Constitutional Vital Signs, click to edit/add: Last Vital Signs Temp 98.3 F 04/27/23 12:15 Pulse 76 04/27/23 12:15 Resp 18 04/27/23 12:15 Pulse Ox 99 04/27/23 12:15 O2 Del Method Room Air 04/27/23 12:15 Course Vital Signs Vital signs: Vital Signs Temperature 98.3 F 04/27/23 12:15 Pulse Rate 76 04/27/23 12:15 Respiratory Rate 18 04/27/23 12:15 Pulse Oximetry 99 04/27/23 12:15 Oxygen Delivery Method Room Air 04/27/23 12:15 Temperature 98.3 F 04/27/23 12:15 Pulse Rate 76 04/27/23 12:15 Respiratory Rate 18 04/27/23 12:15 Pulse Oximetry 99 04/27/23 12:15 Oxygen Delivery Method Room Air 04/27/23 12:15 MDM - Fall MDM Narrative Medical decision making narrative: CAT scan of the head and x-rays of her foot and hand are negative and she is able to be discharged home. Treatment diagnosis and follow-up were discussed with the patient and her sister. Differential Diagnosis Differential diagnosis: Likely other (subdural hematoma, subarachnoid hemorrhage, toe fracture, contusions) Imaging Data CT head, left foot x-ray, left hand x-ray: Radiologist's impression: no acute findings per radiologist Discharge Plan Discharge Chief Complaint: Fall Clinical Impression: Contusion of face Patient Disposition: Home, Self-Care Time of Disposition Decision: 13:28 Condition: Good Mode of Transportation: Private Vehicle Prescriptions / Home Meds: No Action amiodarone 200 mg tablet 400 mg PO Q24H amlodipine 10 mg tablet 10 mg PO Q24H Eliquis 5 mg tablet 5 mg PO Q12H metoprolol succinate 25 mg tablet extended release 24 hr 25 mg PO Q12H atorvastatin 20 mg tablet 20 mg PO Q24H azathioprine 50 mg tablet 50 mg PO Q24H azelastine 137 mcg (0.1 %) aerosol,spray 137 mcg INTRANASAL Q12H balsalazide 750 mg capsule 750 mg PO Q24H bupropion HCl 150 mg tablet extended release 24 hr 150 mg PO Q24H levothyroxine [Synthroid] 100 mcg tablet 100 mcg PO Q24H losartan 50 mg tablet 50 mg PO Q24H pantoprazole 40 mg tablet,delayed release (DR/EC) 40 mg PO Q12H potassium chloride 8 mEq tablet extended release 8 meq PO Q24H venlafaxine 75 mg capsule,extended release 24hr 75 mg PO Q24H Farxiga 10 mg tablet 10 mg PO DAILY Instructions: Facial Contusion (ED) Stand Alone Forms: Portal Instructions Referrals: Sonali Ponce MD [Primary Care Provider] - 1 week
--- NOTE | 2023-04-27 12:49 | CT_ITS ---
The [address] [address] Patient Name: MAUREEN GARCÍA MRN: [id number] date: 1940 Sex: F Assigned Patient Location: ER Current Patient Location: ER Accession/Order Number: [id number] Exam Date: 04/27/2023 12:42 Report Date: 04/27/2023 13:06 At the request of: JAVI NICHOLE Procedure: CT head/brain wo con EXAM: CT head/brain wo con HISTORY: fall, hit head, on Eliquis patient tripped on a rug and fell striking right side of face. Patient is on blood thinners. COMPARISON: Comparison made to CT head dated 02/06/2023. TECHNIQUE: Contiguous transaxial images were obtained from skull base to vertex without administration of intravenous contrast. Dose reduction: mA and/or kV are were adjusted by automated exposure control software based upon patients height and weight. FINDINGS: There is no focal scalp soft tissue swelling or acute calvarial fracture. The visualized globes and orbits are grossly normal. There is mild paranasal sinus mucosal thickening without air-fluid levels. 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 Bilateral mastoid air cells are clear. There is hyperostosis frontalis interna, an anatomic normal variant. The ventricles and sulci are normal and symmetric bilaterally. There is mild periventricular and deep subcortical white matter low-attenuation consistent with small vessel ischemic disease. There is no intraparenchymal hemorrhage, extraaxial fluid collection, mass lesion, or acute large vessel ischemia by noncontrast CT. There is intracranial atherosclerosis. CT/CT head/brain wo con IMPRESSION: 1. No acute intracranial hemorrhage or acute large territory ischemia by noncontrast CT. 2. Chronic small vessel ischemic disease. 3. Intracranial atherosclerosis. If the patient has a focal neurologic deficit or there is clinical suspicion for acute cerebrovascular accident, brain MRI would be recommended for further evaluation. Electronically authenticated by: OSIEL ELLIOTT Date: 04/27/2023 13:06
--- NOTE | 2023-04-27 12:53 | XR_ITS ---
The [address] [address] Patient Name: MAUREEN GARCÍA MRN: [id number] date: 1940 Sex: F Assigned Patient Location: ER Current Patient Location: ER Accession/Order Number: [id number] Exam Date: 04/27/2023 12:48 Report Date: 04/27/2023 13:11 At the request of: JAVI NICHOLE Procedure: XR hand LT min 3V PROCEDURE: XR hand LT min 3V HISTORY: fall , left hand pain. COMPARISON: None. FINDINGS: BONES:Degenerative changes of the first carpal-metacarpal joint and adjacent corticated ossification suspected to represent heterotopic bone formation from remote injury. No appreciable acute fracture or dislocation. SOFT TISSUES:No visible soft tissue swelling. EFFUSION:None visible. OTHER: Negative. XR/XR hand LT min 3V IMPRESSION: 1. No appreciable acute bone abnormality. 2. Degenerative changes, greatest involving the first carpal-metacarpal joint. Electronically authenticated by: LEONORA DOMINGUEZ Date: 04/27/2023 13:11
--- NOTE | 2023-04-27 12:53 | XR_ITS ---
The [address] [address] Patient Name: MAUREEN GARCÍA MRN: [id number] date: 1940 Sex: F Assigned Patient Location: ER Current Patient Location: ER Accession/Order Number: [id number] Exam Date: 04/27/2023 12:48 Report Date: 04/27/2023 13:14 At the request of: JAVI NICHOLE Procedure: XR foot LT min 3V PROCEDURE: XR foot LT min 3V HISTORY: fall, pain at hallux COMPARISON: None. FINDINGS: BONES:Prior pinning of 5th metatarsal with wire fragment still in place. No appreciable fracture or dislocation. Small calcaneal plantar spur. SOFT TISSUES:No visible soft tissue swelling. EFFUSION:None visible. OTHER: Negative. XR/XR foot LT min 3V IMPRESSION: 1. No appreciable acute bone abnormality. 2. Remote surgical repair of 5th metatarsal. 3. Multifocal mild degenerative changes. Electronically authenticated by: LEONORA DOMINGUEZ Date: 04/27/2023 13:14
== END 2023-04-27 13:38 | disposition home or self-care (01) ==
PROVIDERS: Emergency Provider Emergency Medicine; PCP Family Medicine
DX: S00.83XA Contusion of other part of head, initial encounter (principal); W01.0XXA Fall on same level from slipping, tripping and stumbling without subsequent striking against object, initial encounter; M79.642 Pain in left hand; M79.675 Pain in left toe(s); Z91.81 History of falling; Z79.01 Long term (current) use of anticoagulants; Z79.899 Other long term (current) drug therapy
CPT/HCPCS: 70450; 73130; 73630; 99284

== ENCOUNTER 2023-06-15 13:07 | Outpatient (OUT) | payer MEDICARE, SELFPAY ==
--- OUTSIDE RECORDS SUMMARY | 2023-06-15 13:12 | XMS_ITS | CCD ---
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 Mechanic Name Role Phone Nia Johnson Unavailable Leonora Saunders Unavailable Unavailabl e Unavailable Primary Care Provider Nia Brito Primary Care Provider Leonora Saunders Unavailable [phone] Nia Johnson Primary Care Provider Leonora Saunders Unavailable Leonora Saunders Unavailable Nia Johnson Primary Care Provider NIA JOHNSON JORGE LUIS Primary Care Unava ilable LEONORA SAUNDERS Attending Unavailabl e LEONORA SAUNDERS Referring Unavailismael e [facility] Primary Care Unava ilable LEONORA SAUNDERS Admitting Unavailabl e LEONORA SAUNDERS Referring Unavailabl e [facility] Primary Care Unava ilable [facility] Primary Care Unava ilable LEONORA SAUNDERS Attending Unavailismael e [facility] Primary Care Unava ilable LEONORA SAUNDERS Admitting Unavailabl e LEONORA SAUNDERS Referring Unavailabl e [facility] Primary Care Unava ilable Leonora Saunders Unavailable Unavailismael Johnson MD, iNa Raya Primary Care Provi mervin Honorio SCHAEFFER, Leonora Mandel Unavailable Boyd Bustamante Unavailable DIANNA, DR BOYD Miller Consulting Unavailable BUSTAMANTE, DR BOYD Miller Primary Care Unavailable BUSTAMANTE, DR BOYD Miller Admitting Unavailable BUSTAMANTE, DR BOYD Miller Attending Unavailable BUSTAMANTE, DR BOYD Miller Consulting Unavailable BUSTAMANTE, DR BOYD Miller Primary Care Unavailable BUSTAMANTE, DR BOYD Miller Admitting Unavailable BUSTAMANTE, DR BOYD Miller Attending Unavailable BUSTAMANTE, DR BOYD Miller Primary Care Unavailable BUSTAMANTE, DR BOYD Miller Admitting Unavailable BUSTAMANTE, DR BOYD Miller Attending Unavailable BUSTAMANTE, DR BOYD Miller Attending Unavailable BUSTAMANTE, DR BOYD Miller Consulting Unavailable BUSTAMANET, DR BOYD Miller Primary Care Unavailable BUSTAMANTE, DR BOYD Miller Admitting Unavailable WITHERELL, ALEC Attending Unavailable BARAZI, GRACIA Attending Unavailable KIMBER, PARAM Attending Unavailable BARAZI, GRACIA Referring Unavailable SAVANNAH, JOVANNY Referring Unavailable KIMBER, PARAM Referring Unavailable BURKET, GROVER Referring Unavailable BARAZI, GRACIA Attending Unavailable KIMBER, PARAM Admitting Unavailable KIMBER, PARAM Attending Unavailable HAY, BECKY Referring Unavailable SAVANNAH, JOVANNY Admitting Unavailable SAVANNAH, JOVANNY Attending Unavailable BURKET, GROVER Admitting Unavailable BURKET, GROVER Attending Unavailable BARAZI, GRACIA Attending Unavailable Allergies Allergy Classification Reported Allergen(s) Allergy Type Date of Onset Reaction(s) Facility (20 sources) Adhesive Tape; Translations: [Unknown] Propensity to adverse reactions to drug 5 [facility] Work Phone: (20 sources) Sulfonamides (Antibiotic); Translations: [SULFA (SULFONAMIDE ANTIBIOTICS)] Propensity to adverse reactions to drug 201 [facility] Work Phone: (3 sources) amoxicillin Drug Allergy 5 [facility] Work Phone: (4 sources) Sulfonamides (Antibiotic) Propensity to adverse reactions to drug 21-201 5 [facility] (10 sources) Sulfonamides (Antibiotic) Propensity to adverse reactions Unknown [employer] Other (1 source) Sulfonamides (Antibiotic) Drug allergy (disorder) 9 [facility] Rep[facility] (3 sources) Adhesive Tape Drug allergy Unknown [employer] Other (2 sources) Allergies Reconciled Propensity to adverse reactions Unknown [employer] Other Medications Current Medications Medication Drug Class(es) Dates Sig (Normalized) Sig (Original) amiodarone hydrochloride 200 mg oral tablet (20 sources) Antiarrhythmic Start: 09-26-2019 amiodarone (CORDARONE) 200 MG tablet Indications: PAF (paroxysmal atrial fibrillation) (HCC) TAKE 1 TABLET DAILY 90 tablet 3 09/26/2019 Active Start: 08-31-2017 End: 09-05-2019 amiodarone (CORDARONE) 200 M G tablet Indications: PAF (paroxysmal atrial fibrillation) (HCC) TAKE 1 TABLET DAILY 90 tablet 3 09/26/2019 Active Start: 09-21-2016 End: 04-08-2017 take 1 tablet by mouth once daily amiodarone (CORDARONE) 200 MG tablet Indications: Paroxysmal atrial fibrillation (HCC) Take 1 (one) tablet (200 mg total) by mouth daily. 90 tablet 1 04/08/2017 Active amLODIPine 10 mg oral tablet (20 sources) Dihydropyridine Calcium Channel Nikunj take 1 tablet by mouth once daily amLODIPine Besylate 10 MG 1 tablet Orally Once a day for 90 days Active apixaban 2.5 mg oral tablet (1 source) Factor Xa Inhibitor take 1 tablet by mouth every twelve hours Eliquis 2.5 MG 1 tablet twice a day Active aspirin 81 mg delayed release oral tablet (20 sources) Platelet Aggregation Inhibitor, Nonsteroidal Anti-inflammatory Drug take 1 tablet by mouth once daily aspirin 81 MG EC tablet Take 81 mg by mouth daily. 0 Active atorvastatin 20 mg oral tablet (20 sources) HMG-CoA Reductase Inhibitor Atorvastatin Calcium 20 mg TAKE 1 TABLET DAILY Active take 0.5 tablet by mouth once da elvie atorvastatin (LIPITOR) 40 MG tablet Take 20 mg by mouth daily Take 1/2 tablet (20mg) by mouth daily . 0 Active take 1 tablet by mouth once mireya y atorvastatin (LIPITOR) 40 MG tablet Take 40 mg by mouth daily . 0 Active take 20 mg by mouth once daily a torvastatin (LIPITOR) 40 MG tablet Take 20 mg by mouth daily . Active azaTHIOprine 50 mg oral tablet (20 sources) Purine Antimetabolite take 2 tablets by mouth once daily azaTHIOprine 50 MG TAKE 2 TABLETS BY MOUTH DAILY for 90 days Active azaTHIOprine 50 MG as directed Orally Active take 2.5 tablets by mouth once d aily azaTHIOprine (IMURAN) 50 mg tablet Take 2.5 tablets by mouth daily 0 Active azelastine hydrochloride 0.137 mg/actuat metered dose nasal spray (20 sources) Histamine-1 Receptor Antagonist Start: 07-02-2022 take 1 puff(s) nasal route twice daily Azelastine HCl 0.1 % 1 puff in each nostril Nasally Twice a day for 30 day(s) Jun, Active take 1 spray(s) nasal route twic e daily Azelastine HCl 137 MCG/SPRAY USE 1 SPRAY IN EACH NOSTRIL TWICE A DAY for 30 Active azelastine (ASTE DENISE) 137 mcg (0.1 %) nasal spray 2 sprays by Each Nare route 2 (two) times a day . 0 Active azelastine (ASTE DENISE) 137 mcg (0.1 %) nasal spray 2 sprays by Each Nare route. 8 times daily Active balsalazide disodium 750 mg oral capsule (20 sources) Aminosalicylate take 2 capsules by mouth every twelve hours Balsalazide Disodium 750 MG 2 capsules Orally Twice a day for 90 days Active take 1 capsule by [facility] three times daily balsalazide (COLAZAL) 750 mg capsule Steve e 750 mg by mouth 3 (three) times a day. 0 Active 24 hr buPROPion hydrochloride 150 mg extended release oral tablet (20 sources) Aminoketone take 3 tablets by [facility] every twenty-four hours buPROPion HCl ER (XL) 150 MG 3 tablet Orally Once a day for 90 days Active take 1 tablet by mouth three randall es daily buPROPion HCl ER (XL) 150 MG 1 tablet Orally three times daily for 90 days Active take 1 tablet by [facility] every twenty-four hours buPROPion HCl ER (XL) 150 MG 1 tablet in the morning Orally Once a day Active cholecalciferol 0.125 mg oral tablet (20 sources) Vitamin D take 1 tablet by mouth once daily cholecalciferol, vitamin D3, (VITAMIN D3) 5,000 unit Tab tablet Take 5,000 Units by mouth daily. 0 Active cycloSPORINE 0.5 mg/ml ophthalmic suspension (20 sources) Calcineurin Inhibitor Immunosuppressant take 1 drop(s) into the eye(s) twice daily Restasis 0.05 % 1 drop into affected eye Ophthalmic Twice a day Active take 1 drop(s) into the eye(s) twice daily cycloSPORINE (RESTASIS) 0.05 % ophthalmi c emulsion Administer 1 drop to both eyes 2 (two) times a day. 0 Active Fish Oil-Dha-Epa 1,200 Mg-144 Mg-216 Mg Capsule (12 sources) take 1 capsule by mouth three times daily fish oil-dha-epa 1,200-144-216 mg cap Take 1,200 mg by mouth 3 (three) times a day. Active fish oil-dha-epa 1,200-144-216 mg cap (15 sources) take 1 capsule by mouth three times daily fish oil-dha-epa 1,200-144-216 mg cap Take 1,200 mg by mouth 3 (three) times a day. 0 Active fluticasone propionate 0.05 mg/actuat metered dose nasal spray (20 sources) Corticosteroid Start: 6 take 1 spray(s) nasal route once daily fluticasone (FLONASE) 50 mcg/actuation nasal spray Instill 1 spray into each nostril daily. 0 02/04/2016 Active Fluticasone Propionate 93 MCG/ACT (10 sources) Fluticasone Prop ionate 93 MCG/ACT 2 sprays (1 spray in each nostril) Nasally Twice a day Active Klor-Con/Ef 25 Meq Effervescent Tablet (2 sources) Start: 6 take 1 tablet by mouth once daily, then take 1 tablet by mouth KLOR-CON/EF 25 mEq disintegrating tablet Take 25 mEq by mouth daily. 02/02/2016 Active levothyroxine sodium 0.1 mg oral tablet (20 sources) l-Thyroxine Start: 0 take 1 capsule by mouth once daily Synthroid 100 mcg tablet Take 1 capsule by mouth daily . 0 11/06/2019 Active Start: 03-01-2016 End: 04-08-2017 take 1 tablet by mouth once daily levothyroxine (SYNTHROID, LEVOTHROID) 150 MCG tablet Take 150 mcg by mouth daily. 03/01/2016 04/08/2017 Discontinued take 1 tablet by troy once daily in the morning Levothyroxine Sodium 100 MCG 1 tablet in the morning on an empty stomach Orally Once a day for 90 days Active take 1 tablet by troy th once daily levothyroxine (SYNTHROID, LEVOTHROID) 125 MCG tablet Take 125 mcg by mouth once daily . 0 Active take 187.5 ug by troy th once daily levothyroxine (SYNTHROID, LEVOTHROID) 125 MCG tablet Take 187.5 mcg by mouth once daily. Active losartan potassium 50 mg oral tablet (20 sources) Angiotensin 2 Receptor Nikunj take 1 tablet by mouth every twenty-four hours Losartan Potassium 50 MG 1 tablet Orally Once a day for 90 days Active meloxicam 15 mg oral tablet (20 sources) Nonsteroidal Anti-inflammatory Drug Start: 2016 take 1 tablet by mouth once daily meloxicam (MOBIC) 15 MG tablet Take 15 mg by mouth daily. 0 01/23/2017 Active mesalamine 1000 mg rectal suppository (20 sources) Aminosalicylate take 1000 mg rectal route once daily mesalamine (CANASA) 1000 MG suppository Insert 1,000 mg into the rectum nightly. 0 Active Metoprolol (1 source) beta-Adrenergic Nikunj Metoprolol Tartrate Active pantoprazole 40 mg delayed release oral tablet (20 sources) Proton Pump Inhibitor take 1 tablet by mouth every twenty-four hours Pantoprazole Sodium 40 MG 1 tablet Orally Once a day Active polysaccharide iron complex 150 mg oral capsule (20 sources) take 1 capsule by mouth twice daily polysaccharide iron complex (NIFEREX) 150 mg iron capsule Take 150 mg by mouth 2 (two) times a day. 0 Active potassium bicarbonate 25 meq effervescent oral tablet (20 sources) Start: 2015 take 1 tablet by mouth once daily KLOR-CON/EF 25 mEq disintegrating tablet Take 25 mEq by mouth daily. 0 02/02/2016 Active Start: 02-02-2016 take 1 tablet by troy th once daily, then take 1 tablet by mouth KLOR-CON/EF 25 mEq disintegrating tablet Take 25 mEq by mouth daily. 02/02/2016 Active potassium chloride 8 meq extended release oral tablet (10 sources) take 2 tablets by mouth twice daily at mealtime Potassium Chloride ER 8 MEQ TAKE 2 TABLETS BY MOUTH TWICE A DAY WITH FOOD for 90 days Active QUEtiapine 25 mg oral tablet (20 sources) Atypical Antipsychotic take 1 tablet by mouth once daily QUEtiapine (SEROQUEL) 25 MG tablet Take 25 mg by mouth nightly. 0 Active traMADol hydrochloride 50 mg oral tablet (14 sources) Opioid Agonist take 1 tablet by mouth twice daily as needed for pain traMADol (ULTRAM) 50 mg tablet Take 50 mg by mouth 2 (two) times a day as needed for pain . 0 Active 24 hr venlafaxine 75 mg extended release oral capsule (20 sources) Serotonin and Norepinephrine Reuptake Inhibitor Venlafaxine HCl ER 75 mg TAKE 3 CAPSULES DAILY Active take 1 capsule by mo uth every twenty-four hours Venlafaxine HCl ER 75 MG 1 capsule with food Orally Once a day Active take 1 capsule by mouth once millie ly venlafaxine (EFFEXOR-XR) 75 MG 24 hr capsule Take 225 mg by mouth daily . 0 Active VIT A/VIT C/VIT E/ZINC/COPPE R (ICAPS AREDS ORAL) (20 sources) take 2 capsules by m outh once daily VIT A/VIT C/VIT E/ZINC/COPPER (ICAPS AREDS ORAL) Take 2 capsules by mouth daily. 0 Active take 2 capsules by mouth once da elvie VIT A/VIT C/VIT E/ZINC/COPPER (ICAPS AREDS ORAL) Take 2 capsules by mouth daily. Active vitamin b12 1 mg oral tablet (20 sources) Vitamin B12 take 1 tablet by mouth once daily cyanocobalamin (vitamin B-12) 1000 MCG tablet Take 1,000 mcg by mouth daily. 0 Active Completed/Discontinued Medications Medication Drug Class(es) Dates Sig (Normalized) Sig (Original) magnesium citrate 58.2 mg/ml oral solution (1 source) Start: 07-02-2018 End: 07-02-2018 magnesium citrate solution 296 mL melatonin 10 mg oral tablet (4 sources) End: 04-08-2017 take 1 tablet by mouth once melatonin 10 mg Tab Take 10 mg by mouth nightly. 04/08/2017 Discontinued raNITIdine 300 mg oral capsule (4 sources) Histamine-2 Receptor Antagonist Start: 02-01-2016 End: 04-08-2017 take 1 capsule by mouth once daily ranitidine (ZANTAC) 300 MG capsule Take 300 mg by mouth daily. 02/01/2016 04/08/2017 Discontinued 1000 ml sodium chloride 9 mg/ml injection (1 source) Start: 07-02-2018 End: 07-02-2018 sodium chloride 0.9% (NS) bolus 1,000 mL traZODone hydrochloride 50 mg oral tablet (4 sources) Serotonin Reuptake Inhibitor End: 04-08-2017 traZODone (DESYREL) 50 MG tablet Take 1 or 2 tablets by oral route every night at bedtime 04/08/2017 Discontinued Problems Active Problems Problem Classification Problem Date Documented Date Episodic/Chronic Cardiac dysrhythmias (20 sources) Paroxysmal atrial fibrillation; Translations: [Paroxysmal atrial fibrillation] Onset: 04-08-2017 04-08-2017 Chronic Conduction disorders (2 sources) Unspecified atrioventricular block; Translations: [Unspecified atrioventricular block] Onset: 04-10-2023 Chronic Congestive heart failure; nonhypertensive (2 sources) Acute on chronic systolic (congestive) heart failure; Translations: [Acute on chronic systolic (congestive) heart failure] Onset: 03-30-2023 Chronic Diabetes mellitus without complication (12 sources) Impaired fasting glycemia; Translations: [Impaired fasting glucose] Episodic Disorders of lipid metabolism (17 sources) Hyperlipidemia; Translations: [Hyperlipidemia, unspecified] Onset: 07-24-2022 Chronic Esophageal disorders (12 sources) Gastroesophageal reflux disease; Translations: [Gastro-esophageal reflux disease without esophagitis] Chronic Essential hypertension (20 sources) Hypertensive disorder; Translations: [Essential (primary) hypertension] Onset: 04-08-2017 04-08-2017 Chronic Heart valve disorders (2 sources) Nonrheumatic mitral (valve) prolapse; Translations: [Nonrheumatic mitral (valve) prolapse] Onset: 12-13-2022 Chronic Mood disorders (2 sources) Depression; Translations: [Depression, unspecified] Chronic Other aftercare (1 source) Encounter for removal of sutures Episodic Other aftercare (2 sources) Encounter for follow-up examination after completed treatment for conditions other than malignant neoplasm; Translations: [Encounter for follow-up examination after completed treatment for conditions other than malignant neoplasm] Onset: 04-23-2023 Episodic Other connective tissue disease (1 source) Pain in right foot Episodic Other connective tissue disease (1 source) Pain in left foot Episodic Other nutritional; endocrine; and metabolic disorders (20 sources) Obesity; Translations: [Obesity, unspecified] Onset: 04-08-2017 04-08-2017 Chronic Other upper respiratory disease (10 sources) Allergic rhinitis; Translations: [Allergic rhinitis, unspecified] Chronic Other upper respiratory disease (1 source) Allergic rhinitis, unspecified Chronic Beatris-; endo-; and myocarditis; cardiomyopathy (except that caused by tuberculosis or sexually transmitted disease) (2 sources) Cardiomyopathy, unspecified; Translations: [Cardiomyopathy, unspecified] Onset: 02-19-2023 Chronic Regional enteritis and ulcerative colitis (12 sources) Ulcerative colitis; Translations: [Ulcerative colitis, unspecified, without complications] Chronic Residual codes; unclassified (10 sources) Obstructive sleep apnea syndrome; Translations: [Obstructive sleep apnea (adult) (pediatric)] Chronic Residual codes; unclassified (5 sources) Obstructive sleep apnea (adult) (pediatric); Translations: [OBSTRUCTIVE SLEEP APNEA] Onset: 09-24-2022 Chronic Residual codes; unclassified (10 sources) Edema; Translations: [Localized edema] Episodic Residual codes; unclassified (2 sources) Localized edema; Translations: [Localized edema] Episodic Spondylosis; intervertebral disc disorders; other back problems (12 sources) Low back pain; Translations: [Lumbar pain] Episodic Thyroid disorders (14 sources) Hypothyroidism; Translations: [Hypothyroidism, unspecified] Onset: 07-28-2022 Chronic Unclassified (17 sources) Drug therapy finding; Translations: [[facility] current use of 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 drug] Onset: 04-08-2017 04-08-2017 Unclassified (10 sources) Long-term current use of drug therapy; 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] Onset: 04-08-2017 04-08-2017 Unclassified (2 sources) Longstanding persistent atrial fibrillation; Translations: [Longstanding persistent atrial fibrillation] Onset: 03-30-2023 Unclassified (2 sources) Other persistent atrial fibrillation; Translations: [Other persistent atrial fibrillation] Onset: 02-17-2023 Past or Other Problems Problem Classification Problem Date Documented Da te Episodic/Chronic Intestinal obstruction without hernia (16 sources) Fecal impaction; Translations: [Fecal impaction] Onset: 07-02-2018 07-02-2018 Episodic Other aftercare (1 source) Long-term current use of drug therapy; 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 female presenting with htn, GERD, sleep apnea, mitral valve prolapse, A-fib, c-diff, TIA, HLD, it is noted in her H&P per PCP she has been on a medication for afib but it caused her thyroid issues. She had previous seen a chalk cutter and an outlying facility and recently moved here about 2 years ago and has not established with a chalk cutter. She was seen by [facility] and subsequently started on anticoagulation with Eliquis. previously she had afib ablation with [facility] before 2009 had for unclear reasons was not placed on anticoagulation when he saw her. she got admitted to [place] ED on 02/06/2023 following a fall. versus attributed to be a mechanical fall as she tripped on the corner curb. no loss of consciousness. CT of the head was negative for any hemorrhage. she had some lacerations which were sutured. She had a recent echocardiogram done which showed cardiomyopathy with a EF of 35 to 40%. Pt underwent dual chamber PPM by Dr Forrest. She has come for DCCV. [id number] at least 6 for age, gender, hypertension, TIA -not anticoagulated ECG 02/17/23 Afib with RVR 02/06/2023 shows atrial fibrillation 12/03/2022 A-fib 100bpm 06/11/2020 sinus rhythm Echocardiogram 02/02/2023 Past Medical History She has no past medical history on file. Surgical History She has no past surgical history on file. Social History She reports that she has quit smoking. Her smoking use included cigarettes. She has never used smokeless tobacco. No history on file for alcohol use and drug use. Allergies Adhesive and Sulfa (sulfonamide antibiotics) Medications Medications Prior to Admission Medication Sig Dispense Refill Last Dose amiodarone (Pacerone) 200 mg tablet Take 2 tablets (400 mg) by mouth in the morning and at bedtime for 14 days, THEN 1 tablet (200 mg) in the morning. Do not start before March 30, 2023. 236 tablet 0 05/11/2023 amLODIPine (Norvasc) 10 mg tablet Take 10 mg by mouth in the morning. 05/11/2023 apixaban (Eliquis) 5 mg tablet Take 1 tablet (5 mg) by mouth in the morning and at bedtime. Do not start before April 14, 2023. 60 tablet 0 05/11/2023 atorvastatin (Lipitor) 20 mg tablet Take 20 mg by mouth in the morning. 05/11/2023 azaTHIOprine (Imuran) 50 mg tablet Take 50 mg by mouth in the morning and at bedtime. 05/11/2023 azelastine (Astelin) 137 mcg (0.1 %) nasal spray Administer 1 spray into each nostril in the morning and at bedtime. Use in each nostril as directed 05/11/2023 balsalazide (Colazal) 750 mg capsule Take 750 mg by mouth in the morning and at bedtime. 2 capsules daily 05/11/2023 buPROPion XL (Wellbutrin XL) 150 mg 24 hr tablet Take 150 mg by mouth in the morning, at noon, and at bedtime. 05/11/2023 cholecalciferol, vitamin D3, (Vitamin D3) 10 mcg (400 unit) capsule Take by mouth. 05/11/2023 cyanocobalamin (Vitamin B-12) 1,000 mcg tablet Take 1,000 mcg by mouth in the morning. 05/11/2023 dapagliflozin propanediol (Farxiga) 10 mg Take 1 tablet (10 mg) by mouth in the morning. 30 tablet 11 05/11/2023 losartan (Cozaar) 50 mg tablet Take 50 mg by mouth in the morning. 05/11/2023 metoprolol succinate XL (Toprol-XL) 25 mg 24 hr tablet Take 1 tablet (25 mg) by mouth in the morning. Do not crush or chew. 30 tablet 11 05/11/2023 multivitamin capsule Take 1 capsule by mouth in the morning. 05/11/2023 omega-3 fatty acids/fish oil (FISH OIL EXTRA STRENGTH ORAL) Take 3 capsules by mouth in the morning. 05/11/2023 pantoprazole (ProtoNix) 40 mg EC tablet Take 40 mg by mouth before breakfast. Do not crush, chew, or split. 05/11/2023 potassium chloride CR (Klor-Con) 8 mEq ER tablet Take 8 mEq by mouth in the morning and at bedtime. Take two tablets 2x daily 05/10/2023 Synthroid 100 mcg tablet Take 100 mcg by mouth in the morning. 05/11/2023 eujwwxs-lpfc-khynz-or eg-capryl 100 mg-150 mg- 50 mg-150 mg capsule Take 1 capsule by mouth in the morning. 05/11/2023 venlafaxine XR (Effexor-XR) 75 mg 24 hr capsule Take 75 mg by mouth in the morning, at noon, and at bedtime. 05/11/2023 vit C,Y-Rq-yigac-lutein-z eaxan (PreserVision AREDS-2) 250-90-40-1 mg capsule Take 2 capsules by mouth in the morning. 05/11/2023 Review of Systems Physical Exam Constitutional General Appearance: well-nourished, well-developed, appears stated age Level of Distress: comfortable Psychiatric Mental Status: alert, normal affect Orientation: oriented to time, place, and person Insight: good judgement Eyes Lids and Conjunctivae: non-injected, no xanthelasma ENMT Ears: no lesions on external ear Nose: no lesions on external nose Oropharynx: no cyanosis, no pallor Neck Neck: supple, trachea midline Carotid Arteries: bilateral normal upstroke, no bruits Jugular Veins: normal jugular venous pressure Thyroid: not enlarged Lungs Respiratory Effort: unlabored Chest Exam: normal curvature, no thoracic defo (more content not included)... [facility] NURSNOTEon 05-11-2023 NURSNOTE RN educated pt on d/ c instructions. RN encouraged pt to voice any questions or concerns. Pt verbalizes no questions or concerns at this time. Normal [facility] NURSNOTE Bedside swallow stud y completed and passed. [facility] Office Visiton 04-23-2023 Follow-up visit [id number] Emy García 1940 F Date Provider Department Center 04/23/2023 [id number] JERRY CARD [facility] No family history on file Level of Service:67873 NC POSTOP FOLLOW UP VISIT RELATED TO ORIGINAL PX [facility] 30on 04-11-2023 30 The patient is Moderately Stable - Low risk of patient condition declining or worsening The patient's goals for the shift include comfort The clinical goals for the shift include VSS Over the shift, the patient did make progress toward her goals. Normal [facility] BASIC METABOLIC PANELon 03-25 Anion gap [Moles/Vol] 12 mmol/L Normal 7-20 [facility] Comment on above: Performed By: #### L [id number] #### [facility] ([facility]) [address] [place] [address] Calcium [Mass/Vol] 9.7 mg/dL Normal 8.6-10.3 [facility] Comment on above: Performed By: #### L [id number] #### [facility] ([facility]) [address] [place] [address] Chloride [Moles/Vol] 108 mmol/L High 98-107 [facility] Comment on above: Performed By: #### L [id number] #### [facility] ([facility]) [address] [place] [address] CO2 [Moles/Vol] 23 mmol/L Normal 21-31 [facility] Comment on above: Performed By: #### L [id number] #### [facility] ([facility]) [address] [place] [address] Creatinine [Mass/Vol] 0.92 mg/dL Normal 0.60-1.20 [facility] Comment on above: Performed By: #### L [id number] #### [facility] ([facility]) [address] [place] [address] GLOMERULAR FILTRATION RATE ML/MIN/1.73 SQ M.PREDICTED 62.2 mL/min/1.73m*2 Normal >60.0 [facility] Comment on above: Result Comment: The [facility]???s estimated glomerular filtration rate (eGFR) will no longer include consideration of race in its calculation. The National Kidney Foundation???s eGFR Task Force developed new recommendations for the estimation of the glomerular filtration rate in the [place] They recommend immediate implementation of the new equation refit without the race variable in all laboratories because the calculation does not include race. In addition to not including race in the calculation and reporting, it included diversity in its development, and has acceptable performance characteristics and potential consequences that do not disproportionately affect any one group of individuals. Performed By: #### L [id number] #### [facility] ([facility]) [address] [place] [address] Glucose [Mass/Vol] 67 mg/dL Low 70-100 [facility] Comment on above: Performed By: #### L [id number] #### [facility] ([facility]) [address] [place] [address] Potassium [Moles/Vol] 3.9 mmol/L Normal 3.5-5.1 [facility] Comment on above: Performed By: #### L [id number] #### [facility] ([facility]) [address] [place] [address] Sodium [Moles/Vol] 139 mmol/L Normal 136-145 [facility] Comment on above: Performed By: #### L [id number] #### [facility] ([facility]) [address] [place] [address] Urea nitrogen [Mass/Vol] 12 mg/dL Normal 7-25 [facility] Comment on above: Performed By: #### L [id number] #### [facility] ([facility]) [address] [place] [address] UREA NITROGEN/CREATININE (MASS RATIO) IN SER/PLAS 13.0 Normal [facility] Comment on above: Performed By: #### L [id number] #### [facility] ([facility]) [address] [place] [address] CBCon 04-11-2023 Erythrocyte distribution width (RBC) [Ratio] 14.8 % Normal 11.5-15.0 [facility] Comment on above: Performed By: #### L [id number] ####[facility] ([facility])[address] [place] [address] ERYTHROCYTE MEAN CORPUSCULAR HEMOGLOBIN CONCENTRATION (G/DL) BY AUTOMATED 33.3 g/dL Normal 32.0-35.0 [facility] Comment on above: Performed By: #### L [id number] ####[facility] [place] [address] Hematocrit (Bld) [Volume fraction] 40.0 % Normal 36.0-48.0 [facility] Comment on above: Performed By: #### L [id number] ####[facility] ([facility])[address] [place] [address] Hemoglobin (Bld) [Mass/Vol] 13.3 g/dL Normal 12.0-15.0 [facility] Comment on above: Performed By: #### L [id number] ####[facility] [place] [address] MCH (RBC) [Entitic mass] 31.7 pg Normal 27.0-33.0 [facility] Comment on above: Performed By: #### L [id number] ####[facility] ([facility])[address] [place] [address] MCV (RBC) [Entitic vol] 95.5 fL Normal 82.0-98.0 [facility] Comment on above: Performed By: #### L [id number] ####[facility] ([facility])[address] [place] [address] PLATELETS (10*3/UL) IN BLOOD AUTOMATED COUNT 245 10*3/uL Normal 150-400 [facility] Comment on above: Performed By: #### L [id number] ####[facility] [place] [address] RBC (Bld) [#/Vol] 4.19 10*6/uL Normal 3.80-5.00 [facility] Comment on above: Performed By: #### L [id number] ####[facility] ([facility])[address] [place] [address] WBC (Bld) [#/Vol] 9.32 10*3/uL Normal 4.00-10.60 [facility] Comment on above: Performed By: #### L [id number] ####[facility] ([place] [address] DSon 04-11-2023 DS - Attestation signed by Jovanny Forrest MD at 04/12/2023 3:05 PM I discussed the patient on the same date of service as the Non-Physician Provider Alec Jerry NP. Teaching Physician's Revisions: As above Admission Admitted 04/10/2023 for AV block Discharge Diagnosis AV block s/p Dual-chamber pacemaker insertion Discharge Disposition Home or Self Care Discharge Medications Your medication list CHANGE how you take these medications Instructions Last Dose Given Next Dose Due apixaban 5 mg tablet Commonly known as: Eliquis Start taking on: April 14, 2023 What changed: These instructions start on April 14, 2023. If you are unsure what to do until then, ask your doctor or other care provider. Take 1 tablet (5 mg) by mouth in the morning and at bedtime. Do not start before April 14, 2023. CONTINUE taking these medications Instructions Last Dose Given Next Dose Due amiodarone 200 mg tablet Commonly known as: Pacerone Start taking on: March 30, 2023 Take 2 tablets (400 mg) by mouth in the morning and at bedtime for 14 days, THEN 1 tablet (200 mg) in the morning. Do not start before March 30, 2023. amLODIPine 10 mg tablet Commonly known as: Norvasc atorvastatin 20 mg tablet Commonly known as: Lipitor azaTHIOprine 50 mg tablet Commonly known as: Imuran azelastine 137 mcg (0.1 %) nasal spray Commonly known as: Astelin balsalazide 750 mg capsule Commonly known as: Colazal buPROPion XL 150 mg 24 hr tablet Commonly known as: Wellbutrin XL cyanocobalamin 1,000 mcg tablet Commonly known as: Vitamin B-12 dapagliflozin propanediol 10 mg Commonly known as: Farxiga Take 1 tablet (10 mg) by mouth in the morning. FISH OIL EXTRA STRENGTH ORAL losartan 50 mg tablet Commonly known as: Cozaar metoprolol succinate XL 25 mg 24 hr tablet Commonly known as: Toprol-XL Take 1 tablet (25 mg) by mouth in the morning. Do not crush or chew. multivitamin capsule pantoprazole 40 mg EC tablet Commonly known as: ProtoNix potassium chloride CR 8 mEq ER tablet Commonly known as: Klor-Con PreserVision AREDS-2 250-90-40-1 mg capsule Generic drug: vit C,V-Nk-peaze-lutein-z eaxan Synthroid 100 mcg tablet Generic drug: levothyroxine iqwzgxd-tegy-qztox-or eg-capryl 100 mg-150 mg- 50 mg-150 mg capsule venlafaxine XR 75 mg 24 hr capsule Commonly known as: Effexor-XR Vitamin D3 10 mcg (400 unit) capsule Generic drug: cholecalciferol (vitamin D3) Where to Get Your Medications These medications were sent to [facility]/pharmacy #[id number] [place] [address] apixaban 5 mg tablet Activity Patient currently has no discharge activity orders Diet Patient currently has no discharge diet orders Allergies Adhesive and Sulfa (sulfonamide antibiotics) Hospital Course The patient is a 80-year-old woman who presented with heart block. She has a history of atrial fibrillation and also of heart block. She was hypotensive and extremely bradycardic. Because of the complete heart block she will undergo permanent pacemaker implantation Seizure: Informed consent was obtained she was brought to the pacemaker laboratory in the fasting state. The a contrast injection was performed to delineate the course and patency of the left subclavian. The left subclavicular fossa was prepped and draped in usual manner 1% Xylocaine solution infiltrated for local anesthesia. Utilizing percutaneous technique the left subclavian was cannulated and under fluoroscopic guidance guidewires advanced to the level of the inferior vena cava to ensure intervascular placement. Then following initial sharp incision meticulous blunt dissection was employed to create a subfascial pocket. Via 2 breakaway introducer sheaths Biotronik active-fixation leads were fluoroscopically guided into positions in the right ventricular septum and right atrial and right atrial appendage. The active-fixation coils of each were deployed and the leads were sutured into place with an 0 silk suture.They were connected to a Biotronik dual-chamber pacing system. This was placed in the previously created subfascial pocket. It was sutured into place with an 0 silk suture. The off field telemetry adequate sensing and pacing levels were determined. The right ventricular lead showed a pacing threshold of 1.4 V at 0.4 ms pulse width with an R wave amplitude of 8.5 mV and impedance of 682 ohms. The right atrial lead showed a P wave amplitude of 1.1 mV and impedance of 468 ohms. The pocket was irrigated with antibiotic solution. The fascial layer closed with a continuous 2-0 Vicryl suture. The subdermal layer with interrupted 3-0 Biosyn sutures placed utilizing a buri (more content not included)... Normal [facility] POCT GLUCOSE METER UNSOLICIT ED RESULTSon 04-11-2023 Glucose [Mass/Vol] 143 mg/dL High 70-105 [facility] Comment on above: Order Comment: Waive d Testing in the ED is performed under the ED CLIA certificate #[id number]. Result Comment: [email or web address] Performed By: #### L [id number] ####[facility] ([facility])[address] [place] [address] Glucose [Mass/Vol] 81 mg/dL Normal 70-105 [facility] Comment on above: Order Comment: Waive d Testing in the ED is performed under the ED CLIA certificate #[id number]. Result Comment: [email or web address] Performed By: #### L [id number] ####[facility] ([facility])[address] [place] [address] 30on 04-10-2023 30 The patient is Moderately Stable - Low risk of patient condition declining or worsening The patient's goals for the shift include comfort The clinical goals for the shift include VSS Normal [facility] HPon 04-10-2023 HP History Of Present Illness Debra García is a 82 y.o. female presenting with heart block. Past Medical History She has no past medical history on file. Surgical History She has no past surgical history on file. Social History She reports that she has quit smoking. Her smoking use included cigarettes. She has never used smokeless tobacco. No history on file for alcohol use and drug use. Allergies Adhesive and Sulfa (sulfonamide antibiotics) Medications (Not in a hospital admission) Review of Systems Physical Exam Last Recorded Vitals There were no vitals taken for this visit. Relevant Results Heart block Assessment/Plan Principal Problem: AV block Pacemaker Jovanny Forrest MD [facility] NURSNOTEon 04-10-2023 NURSNOTE RN messaged hospitalist regarding patient admit orders and med rec, per hospitalist cardiology is primary. RN paged and received a call from Jewel, television production assistant chalk cutter, and was told that hospitalist was primary. RN contacted hospitalist again regarding information. Per hospitalist, they had talked to [place] and informed him that cardiology was primary. RN told that [facility] will contact [place] and place further orders. Commissary Manager will update day team and await further orders. Normal [facility] Orders Onlyon 04-10-2023 Orders Only [id number] Emy García 1940 F Date Provider Department Center 04/10/2023 HERMINIA [facility]OND [facility] No family history on file Normal [facility] Prep for Procedureon 023 Prep for Procedure [id number] Emy García 1940 F Date Provider Department [place] 04/10/2023 SHAW FISCHER [facility] No family history on file [facility] Follow-Upon 03-27-2023 Follow-Up [id number] Emy García 1940 F Date Provider Department [place] 03/27/2023 GRACIA CHAMBERLAIN [facility] No family history on file Level of Service:53185 NC OFFICE/OUTPATIENT ESTABLISHED MOD [facility] 30-39 MIN Reason for Visit and Comments: Follow-up [477126] [facility] ANESon 02-26-2023 ANES - Attestation signed by Grover Garcia MD at 03/02/2023 12:21 PM k Patient: Debra García Procedure Information Date/Time: 02/26/23 1030 Procedure: Coronary angiography Location: [facility] / [facility] (Cath) Providers: Grover Garcia MD Clinical information reviewed: Allergies Meds Physical Exam Airway Mallampati: II Cardiovascular Rhythm: regular Rate: normal Dental Pulmonary Abdominal Anesthesia Plan ASA 3 other (Conscious sedation.) Additional Equipment Requests [facility] 02-26-2023 H&P reviewed. The patient was examined and there are no changes to the H&P. We will proceed with coronary angiogram for newly diagnosed HFrEF with ejection fraction 35 to 40%. Normal [facility] NURSNOTEon 02-26-2023 NURSNOTE RN educated pt on d/ c instructions. RN encouraged pt to voice any questions or concerns. Pt verbalizes no questions or concerns at this time. Pt was wheeled off of unit with all of [facility] Electrophysiology Consult Note Reason for visit: Afib HPI: Debra García is a 82 y.o. year old with past medical history of htn, GERD, sleep apnea, mitral valve prolapse, A-fib, c-diff, TIA, HLD, it is noted in her H&P per PCP she has been on a medication for afib but it caused her thyroid issues. She had previous seen a chalk cutter and an outlying facility and recently moved here about 2 years ago and has not established with a chalk cutter. She was seen by Gracia [facility] and subsequently started on anticoagulation with Eliquis. previously she had afib ablation with [facility] before 2009 had for unclear reasons was not placed on anticoagulation when he saw her. she got admitted to [place] ED on 02/06/2023 following a fall. versus attributed to be a mechanical fall as she tripped on the corner curb. no loss of consciousness. CT of the head was negative for any hemorrhage. she had some lacerations which were sutured. She had a recent echocardiogram done which showed cardiomyopathy with a EF of 35 to 40%. [id number] at least 6 for age, gender, hypertension, TIA -not anticoagulated ECG 02/17/23 Afib with RVR 02/06/2023 shows atrial fibrillation 12/03/2022 A-fib 100bpm 06/11/2020 sinus rhythm Echocardiogram 02/02/2023 PMH: No past medical history on file. PSH: No past surgical history on file. SH: Social Determinants of Health Tobacco Use: Medium Risk (12/03/2022) Patient History Smoking Tobacco Use: Former Smokeless Tobacco Use: Never Passive Exposure: Not on file Alcohol Use: Not on file Financial Resource Strain: Not on file Food Insecurity: Not on file Transportation Needs: Not on file Physical Activity: Not on file Stress: Not on file Social Connections: Not on file Intimate Partner Violence: Not on file Depression: Not on file Housing Stability: Not on file Allergies: Allergies Allergen Reactions Adhesive Paper Tape is ok Sulfa (Sulfonamide Antibiotics) Hives Weight: No weight available Visit Vitals Smoking Status Former Meds: Current Outpatient Medications on File Prior to Visit Medication Sig Dispense Refill amLODIPine (Norvasc) 10 mg tablet Take 10 mg by mouth in the morning. apixaban (Eliquis) 5 mg tablet Take 1 tablet (5 mg) by mouth in the morning and at bedtime. 60 tablet 11 atorvastatin (Lipitor) 20 mg tablet Take 20 mg by mouth in the morning. azaTHIOprine (Imuran) 50 mg tablet Take 50 mg by mouth in the morning and at bedtime. balsalazide (Colazal) 750 mg capsule Take 750 mg by mouth in the morning, at noon, and at bedtime. buPROPion XL (Wellbutrin XL) 150 mg 24 hr tablet Take 150 mg by mouth in the morning, at noon, and at bedtime. losartan (Cozaar) 50 mg tablet Take 50 mg by mouth in the morning. metoprolol succinate XL (Toprol-XL) 25 mg 24 hr tablet Take 1 tablet (25 mg) by mouth in the morning. Do not crush or chew. 30 tablet 11 potassium chloride CR (Klor-Con) 8 mEq ER tablet Take 8 mEq by mouth in the morning and at bedtime. Take two tablets 2x daily Synthroid 100 mcg tablet Take 100 mcg by mouth in the morning. venlafaxine XR (Effexor-XR) 75 mg 24 hr capsule Take 75 mg by mouth in the morning, at noon, and at bedtime. No current facility-administered medications on file prior to visit. ROS: Cardio Basic Cardiovascular Symptoms: no lightheadedness, no leg edema, no syncope, no orthopnea, no PND, no claudication, Constitutional Constitutional: no fever, no night sweats, no significant weight gain, no significant weight loss, no exercise intolerance Eyes Eyes: no dry eyes, no irritation, no vision change ENMT Ears: no difficulty hearing, no ear pain Nose: no frequent nosebleeds, Mouth/Throat: no sore throat, no bleeding gums, no snoring, no dry mouth, no mouth ulcers, no oral abnormalities, no teeth problems Respiratory Respiratory: no cough, no wheezing, no coughing up blood, no sleep apnea Musculoskeletal Musculoskeletal: no muscle aches, no muscle weakness, joint pain+, no back pain, no swelling in the extremities Integumentary Skin no rash, no ulcer, no varicosities, no discoloration, no pruritus Neurologic Neurologic: no loss of consciousness, no weakness, no numbness, no seizures, no dizziness, no headaches Psychiatric Psych: no depression, feeling safe in relationship, no alcohol abuse, Hematologic/Lymphatic Hematologic/Lymphatic no swollen glands, no bruising Physical Exam: Constitutional General Appearance: well-nourished, well-developed, appears stated age Level of Distress: comfortable Psychiatric Mental Status: alert, normal affect Orientation: oriented to time, place, and person Insight: good judgement Eyes Lids and Conjunctivae: non-injected, no xanthelasma ENMT Ears: no lesions on external ear Nose: no lesions on external nose Oropharynx: no cyanosis, no pallor Neck Neck: supple, trachea midline Carotid Arteries: bilateral normal upstroke, n (more content not included)... Normal [facility] Office Visiton 02-17-2023 Follow-up visit [id number] Emy García 1940 F Date Provider Department Center 02/17/2023 PARAM STODDARD [facility] No family history on file Level of Service:13004 NC OFFICE/OUTPATIENT NEW HIGH MDM 60-74 MINUTES Normal [facility] Orders Onlyon 02-17-2023 Orders Only [id number] Emy García 1940 F Date Provider Department Center 02/17/2023 KISHOR MONTESINOS [facility] No family history on file Normal [facility] Office Visiton 12-03-2022 Follow-up visit [id number] Emy García 1940 F Date Provider Department Center 12/03/2022 GRACIA CHAMBERLAIN CARD [facility] [facility] No family history on file Level of Service:65941 NC OFFICE/OUTPATIENT NEW MODERATE MDM 45-59 MINUTES Reason for Visit and Comments: Establish Care [42] Atrial Fibrillation [80] Normal [facility] BNPon 07-24-2022 Natriuretic peptide B (Bld) [Mass/Vol] 1076.0 pg/mL Normal <=1,800.0 [facility] Comment on above: Performed By: #### L IPID, TSH, BNP, CMP #### [facility] [address] [place] [address] Dr. Ana Fish CBC AUTO DIFFon 07-24-2022 BASO # 0.0 103/ul Normal 0.0-0.1 [facility] Comment on above: Performed By: #### C BC #### [facility] [address] [place] [address] Dr. Ana Fish Basophils/100 WBC (Bld) 0.4 % Normal 0.2-2.0 [facility] Comment on above: Performed By: #### C BC #### [facility] [address] [place] [address] Dr. Ana Fish EO # 0.1 103/ul Normal 0.0-0.7 [facility] Comment on above: Performed By: #### C BC #### [facility] [address] [place] [address] Dr. Ana Fish Eosinophils/100 WBC (Bld) 1.3 % Normal 0.9-7.0 [facility] Comment on above: Performed By: #### C BC #### [facility] [address] [place] [address] Dr. Ana Fish Erythrocyte distribution width (RBC) [Ratio] 15.5 % Critically high 11.0-15.0 [facility] Comment on above: Performed By: #### C BC #### [facility] [address] [place] [address] Dr. Ana Fish Hematocrit (Bld) [Volume fraction] 37.0 % Normal 36.0-48.0 [facility] Comment on above: Performed By: #### C BC #### [facility] [address] [place] [address] Dr. Ana Fish Hemoglobin (Bld) [Mass/Vol] 12.7 g/dL Normal 12.0-16.0 [facility] Comment on above: Performed By: #### C BC #### [facility] [address] [place] [address] Dr. Ana Fish IG # 0.03 10e3/ul Normal 0.00-0.03 [facility] Comment on above: Performed By: #### C BC #### [facility] [address] [place] [address] Dr. Ana Fish IG % 0.4 % Normal 0.0-0.5 [facility] Comment on above: Performed By: #### C BC #### [facility] [address] [place] [address] Dr. Ana Fish LYMPH # 1.6 103/ul Normal 1.2-3.8 [facility] Comment on above: Performed By: #### C BC #### [facility] [address] [place] [address] Dr. Ana Fish Lymphocytes/100 WBC (Bld) 19.0 % Critically low 20.5-60.0 [facility] Comment on above: Performed By: #### C BC #### [facility] [address] [place] [address] Dr. Ana Fish MANUAL DIFF REQ NO Normal [facility] Comment on above: Performed By: #### C BC #### [facility] [address] [place] [address] Dr. Ana Fish MCH (RBC) [Entitic mass] 32.3 pg Normal 26.7-34.0 [facility] Comment on above: Performed By: #### C BC #### [facility] [address] [place] [address] Dr. Ana Fish MCHC (RBC) [Mass/Vol] 34.3 g/dL Normal 29.9-35.2 [facility] Comment on above: Performed By: #### C BC #### [facility] [address] [place] [address] Dr. Ana Fish MCV (RBC) [Entitic vol] 94.1 fL Normal 81.0-99.0 [facility] Comment on above: Performed By: #### C BC #### [facility] [address] [place] [address] Dr. Ana Fish MONO # 0.8 103/ul Normal 0.3-0.8 [facility] Comment on above: Performed By: #### C BC #### [facility] [address] [place] [address] Dr. Ana Fish Monocytes/100 WBC (Bld) 9.7 % Normal 1.7-12.0 [facility] Comment on above: Performed By: #### C BC #### [facility] [address] [place] [address] Dr. Ana Fish NEUT # 5.7 103/ul Normal 1.4-6.5 [facility] Comment on above: Performed By: #### C BC #### [facility] [facility] [address] [place] [address] Dr. Ana Fish Neutrophils/100 WBC (Bld) 69.2 % Normal 43.0-75.0 [facility] Comment on above: Performed By: #### C BC #### [facility] [address] [place] [address] Dr. Ana Fish Platelet mean volume (Bld) [Entitic vol] 9.9 fL Normal 9.5-13.5 [facility] Comment on above: Performed By: #### C BC #### [facility] [address] [place] [address] Dr. Ana Fish PLT 273 103/ul Normal 150-450 [facility] Comment on above: Performed By: #### C BC #### [facility] [address] [place] [address] Dr. Ana Fish RBC 3.93 106/ul Critically low 4.20-5.40 [facility] Comment on above: Performed By: #### C BC #### [facility] [address] [place] [address] Dr. Ana Fish WBC 8.2 103/ul Normal 4.0-11.0 [facility] Comment on above: Performed By: #### C BC #### [facility] [address] [place] [address] Dr. Ana Fish FREE T4on 07-24-2022 Free T4 [Mass/Vol] 1.34 ng/dL Normal 0.76-1.46 [facility] Comment on above: Performed By: #### F T4 #### [facility] [address] [place] [address] Dr. Ana Fish LIPID PROFILEon 07-24-2022 CHOL-HDL RATIO NORM SEE BELOW Normal [facility] Comment on above: Result Comment: 3.3 - 4.4 LOW RISK 4.4 - 7.1 AVERAGE RISK 7.1 - 11.0 MODERATE RISK >11.0 HIGH RISK Performed By: #### L IPID, TSH, BNP, CMP #### [facility] [address] [address] [address] Ana Fish Cholesterol [Mass/Vol] 199 mg/dL Normal <=200 [facility] Comment on above: Performed By: #### L IPID, TSH, BNP, CMP #### [facility] [address] [address] [address] Ana Fish Cholesterol in HDL [Mass/Vol] 88 mg/dL Critically high 40-60 [facility] Comment on above: Performed By: #### L IPID, TSH, BNP, CMP #### [facility] [address] [address] [address] Ana Fish Cholesterol in LDL [Mass/Vol] 97.6 mg/dL Normal [facility] Comment on above: Performed By: #### L IPID, TSH, BNP, CMP #### [facility] [address] [address] [address] Ana Fish Cholesterol.total/C holesterol in HDL [Mass ratio] 2.3 {ratio} Normal [facility] Comment on above: Performed By: #### L IPID, TSH, BNP, CMP #### [facility] [address] [address] [address] Ana Fish HDL NORMAL > or = 60 mg/dl - LO W CARDIOVASCULAR RISK <40 mg/dl - HIGH CARDIOVASCULAR RISK Normal [facility] Comment on above: Performed By: #### L IPID, TSH, BNP, CMP #### [facility] [address] [address] [address] Ana Fish LDL CALC NORMAL SEE BELOW Normal [facility] Comment on above: Result Comment: <100 mg/dl OPTIMAL 100 - 129 mg/dl NEAR OR ABOVE OPTIMAL 130 - 159 mg/dl BORDERLINE HIGH 160 - 189 mg/dl HIGH >190 mg/dl VERY HIGH Performed By: #### L IPID, TSH, BNP, CMP #### [facility] [address] [address] [address] Ana Fish Triglyceride [Mass/Vol] 67 mg/dL Normal <=150 [facility] Comment on above: Performed By: #### L IPID, TSH, BNP, CMP #### [facility] [address] [place] [address] Dr. Ana Fish VLDL CALC 13.4 mg/dL Normal [facility] Comment on above: Performed By: #### L IPID, TSH, BNP, CMP #### [facility] [address] [place] [address] Dr. Ana Fish PROF 14(COMP METB)on 023 Albumin [Mass/Vol] 3.8 g/dL Normal 3.4-5.0 [facility] Comment on above: Performed By: #### L IPID, TSH, BNP, CMP #### [facility] [address] [place] [address] Dr. Ana Fish Albumin/Globulin [Mass ratio] 1.3 {ratio} Normal [facility] Comment on above: Performed By: #### L IPID, TSH, BNP, CMP #### [facility] [address] [place] [address] Dr. Ana Fish ALP [Catalytic activity/Vol] 81 U/L Normal 46-116 [facility] Comment on above: Performed By: #### L IPID, TSH, BNP, CMP #### [facility] [address] [place] [address] Dr. Ana Fish ALT [Catalytic activity/Vol] 16 U/L Normal 14-59 [facility] Comment on above: Performed By: #### L IPID, TSH, BNP, CMP #### [facility] [address] [place] [address] Dr. Ana Fish Anion gap [Moles/Vol] 10.3 mmol/L Normal [facility] Comment on above: Performed By: #### L IPID, TSH, BNP, CMP #### [facility] [address] [place] [address] Dr. Ana Fish AST [Catalytic activity/Vol] 18 U/L Normal 15-37 [facility] Comment on above: Performed By: #### L IPID, TSH, BNP, CMP #### [facility] [address] [place] [address] Dr. Ana Fish Bilirubin [Mass/Vol] 0.8 mg/dL Normal 0.2-1.0 [facility] Comment on above: Performed By: #### L IPID, TSH, BNP, CMP #### [facility] [address] [address] [address] Ana Fish Calcium [Mass/Vol] 9.3 mg/dL Normal 8.5-10.1 [facility] Comment on above: Performed By: #### L IPID, TSH, BNP, CMP #### [facility] [address] [place] [address] Dr. Ana Fish Chloride [Moles/Vol] 103 mmol/L Normal 98-107 [facility] Comment on above: Performed By: #### L IPID, TSH, BNP, CMP #### [facility] [address] [place] [address] Dr. Ana Fish CO2 [Moles/Vol] 32.1 mmol/L Critically high 21.0-32.0 [facility] Comment on above: Performed By: #### L IPID, TSH, BNP, CMP #### [facility] [address] [place] [address] Dr. Ana Fish Creatinine [Mass/Vol] 0.85 mg/dL Normal 0.55-1.02 [facility] Comment on above: Performed By: #### L IPID, TSH, BNP, CMP #### [facility] [address] [place] [address] Dr. Ana Fish EGFR-AF ANGOLAN >60 Normal >=60 [facility] Comment on above: Performed By: #### L IPID, TSH, BNP, CMP #### [facility] [address] [place] [address] Dr. Ana Fish EGFR-NON AF ANGOLAN >60 Normal >=60 [facility] Comment on above: Performed By: #### L IPID, TSH, BNP, CMP #### [facility] [address] [place] [address] Dr. Ana Fish Globulin (S) [Mass/Vol] 3.0 g/dL Normal [facility] Comment on above: Performed By: #### L IPID, TSH, BNP, CMP #### [facility] [address] [place] [address] Dr. Ana Fish Glucose [Mass/Vol] 101 mg/dL Normal 74-106 [facility] Comment on above: Performed By: #### L IPID, TSH, BNP, CMP #### [facility] [address] [place] [address] Dr. Ana Fish Potassium [Moles/Vol] 3.4 mmol/L Critically low 3.5-5.1 [facility] Comment on above: Performed By: #### L IPID, TSH, BNP, CMP #### [facility] [address] [place] [address] Dr. Ana Fish Protein [Mass/Vol] 6.8 g/dL Normal 6.4-8.2 [facility] Comment on above: Performed By: #### L IPID, TSH, BNP, CMP #### [facility] [address] [place] [address] Dr. Ana Fish Sodium [Moles/Vol] 142 mmol/L Normal 136-145 [facility] Comment on above: Performed By: #### L IPID, TSH, BNP, CMP #### [facility] [address] [place] [address] Dr. Ana Fish Urea nitrogen [Mass/Vol] 12.0 mg/dL Normal 7.0-18.0 [facility] Comment on above: Performed By: #### L IPID, TSH, BNP, CMP #### [facility] [address] [place] [address] Dr. Ana Fish Urea nitrogen/Creatinine [Mass ratio] 14.1 mg/mg Normal [facility] Comment on above: Performed By: #### L IPID, TSH, BNP, CMP #### [facility] [address] [place] [address] Dr. Ana Fish TSHon 07-24-2022 TSH 2.122 uIU/mL Normal 0.358-3.740 [facility] Comment on above: Performed By: #### L IPID, TSH, BNP, CMP #### [facility] [address] [address] [address] Ana Fish XR CHEST AP/PA AND LATon XR CHEST AP/PA AND LAT EXAMINATION: TWO VIEW XR CHEST AP/PA AND LAT, 02/03/2020 COMPARISON: Chest, 01/06/2020. HISTORY: Dx: Z79.899 ([facility] current use of 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 drug) Injury/Trauma or Illness?:Illness/Othe r How long have you had these symptoms (acute/chronic)?:Acut e Abnormal CXR IMPRESSION: 1. No acute cardiopulmonary disease. 2. Normal heart size. 3. Previously described retrocardiac opacities consistent with [id number] hiatus hernia with an air-fluid level. This is not significantly changed since the prior exam. 4. 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 No acute osseous abnormality. GJT/mll Workstation ID: [id number] Dictated by: JUAN JOSE BIRMINGHAM on ThuFeb 03, 2020 1:58:45 PM EDT Transcribed by: VANESSA GRIFFIN on ThuFeb 03, 2020 2:18:49 PM EDT Finalized by: JUAN JOSE BIRMINGHAM on ThuFeb 03, 2020 10:13:[address] 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 Moderate compression deformity of T12 vertebral body. This is age indeterminate. Recommend further evaluation with cross-sectional imaging. /karlk Workstation ID: [id number] [facility] EXAMINATION: XR CHES T AP/PA AND LAT 01/06/2020 9:41 am HISTORY: ORDERING SYSTEM PROVIDED HISTORY: Amiodarone surveillance, TECHNOLOGIST PROVIDED HISTORY: Illness/Other Reason for exam: Amiodarone surveillance Cancer History: n Surgery, RadiationHistory: n Encounter Type: Initial Additional signs and symptoms: ORDERING SYSTEM PROVIDED DIAGNOSIS CODES: Z79.899 [facility] current use of 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 drug I48.0 PAF (paroxysmal atrial fibrillation) (HCC) COMPARISON: Chest radiograph on 09/27/2018. FINDINGS: PA and lateral chest radiograph. The cardiomediastinal contour is within normal limits. Calcified aortic knob. There is a moderate-sized hiatal hernia with air-fluid level. Reticular opacities in the right lower lung zone appears new from the prior study of Sep, 2018. 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 There is at least moderate compression deformity of T12 vertebral body. Suture anchor is projecting over the right humeral head. Cholecystectomy clips are seen in the right upper quadrant. Large amount of stool burden. No pleural effusion. No pneumothorax. There is persistent elevation of the right hemidiaphragm. [facility] 7:58 PM EDT EXAMINATION: XR CHEST AP/PA AND LAT 01/06/2020 9:41 am HISTORY: ORDERING SYSTEM PROVIDED HISTORY: Amiodarone surveillance, TECHNOLOGIST PROVIDED HISTORY: Illness/Other Reason for exam: Amiodarone surveillance Cancer History: n Surgery, RadiationHistory: n Encounter Type: Initial Additional signs and symptoms: ORDERING SYSTEM PROVIDED DIAGNOSIS CODES: Z79.899 [facility] current use of 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 drug I48.0 PAF (paroxysmal atrial fibrillation) (HCC) COMPARISON: Chest radiograph on 09/27/2018. FINDINGS: PA and lateral chest radiograph. The cardiomediastinal contour is within normal limits. Calcified aortic knob. There is a moderate-sized hiatal hernia with air-fluid level. Reticular opacities in the right lower lung zone appears new from the prior study of Sep, 2018. 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 There is at least moderate compression deformity of T12 vertebral body. Suture anchor is projecting over the right humeral head. Cholecystectomy clips are seen in the right upper quadrant. Large amount of stool burden. No pleural effusion. No pneumothorax. There is persistent elevation of the right hemidiaphragm. IMPRESSION: Interval development of mild reticular opacities in the right lower lung zone, suggestive of mild basilar fibrosis. Moderate compression deformity of T12 vertebral body. This is age indeterminate. Recommend further evaluation with cross-sectional imaging. [employer] Workstation ID: [id number] [facility] XR CHEST AP/PA AND LAT EXAMINATION: XR CHEST AP/PA AND LAT 01/06/2020 9:41 am HISTORY: ORDERING SYSTEM PROVIDED HISTORY: Amiodarone surveillance, TECHNOLOGIST PROVIDED HISTORY: Illness/Other Reason for exam: Amiodarone surveillance Cancer History: n Surgery, RadiationHistory: n Encounter Type: Initial Additional signs and symptoms: ORDERING SYSTEM PROVIDED DIAGNOSIS CODES: Z79.899 [facility] current use of 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 drug I48.0 PAF (paroxysmal atrial fibrillation) (HCC) COMPARISON: Chest radiograph on 09/27/2018. FINDINGS: PA and lateral chest radiograph. The cardiomediastinal contour is within normal limits. Calcified aortic knob. There is a moderate-sized hiatal hernia with air-fluid level. Reticular opacities in the right lower lung zone appears new from the prior study of Sep, 2018. 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 There is at least moderate compression deformity of T12 vertebral body. Suture anchor is projecting over the right humeral head. Cholecystectomy clips are seen in the right upper quadrant. Large amount of stool burden. No pleural effusion. No pneumothorax. There is persistent elevation of the right hemidiaphragm. IMPRESSION: Interval development of mild reticular opacities in the right lower lung zone, suggestive of mild basilar fibrosis. Moderate compression deformity of T12 vertebral body. This is age indeterminate. Recommend further evaluation with cross-sectional imaging. [employer] Workstation ID: [id number] Dictated by: ARNOLDO HOUGH on ThuJan 06, 2020 4:42:45 PM EDT Transcribed by: RIAZ MURRAY on ThuJan 06, 2020 5:12:15 PM EDT Finalized by: ARNOLDO HOUGH on ThuJan 06, 2020 7:55:51 PM EDT [facility] Comment on above: Order Comment: Injur y/Trauma or Illness?:Illness/Other How long have you had these symptoms (acute/chronic)?:Unknown Reason for exam?:Amiodarone surveillance History of cancer?:n Surgeries, chemotherapy, or radiation?:n Type of Exam?:Initial Additional signs and symptoms?: Basic Metabolic Panelon 10-3 1-2019 Anion gap [Moles/Vol] 9.00 mmol/L Normal 8.00-16.00 [facility] Comment on above: Order Comment: Fasti ng: Unknown Performed By: #### C 80, C400, C408, C141, C48, C45, C119, C120 #### [facility] [address] [place] [address] B/C Ratio 15.0 Ratio Normal [facility] Comment on above: Order Comment: Fasti ng: Unknown Performed By: #### C 80, C400, C408, C141, C48, C45, C119, C120 #### [facility] [address] [place] [address] Calcium [Mass/Vol] 10.2 mg/dL Normal 8.5-10.[address] [facility] Comment on above: Order Comment: Fasti ng: Unknown Performed By: #### C 80, C400, C408, C141, C48, C45, C119, C120 #### [facility] [address] [place] [address] Chloride [Moles/Vol] 101 mmol/L Normal 98-107 [facility] Comment on above: Order Comment: Fasti ng: Unknown Performed By: #### C 80, C400, C408, C141, C48, C45, C119, C120 #### [facility] [address] [place] [address] CO2 [Moles/Vol] 30.0 mmol/L Normal 22.0-30.0 [facility] Comment on above: Order Comment: Fasti ng: Unknown Performed By: #### C 80, C400, C408, C141, C48, C45, C119, C120 #### [facility] [address] [place] [address] Creatinine [Mass/Vol] 1.0 mg/dL Normal 0.1-1.2 [facility] Comment on above: Order Comment: Fasti ng: Unknown Performed By: #### C 80, C400, C408, C141, C48, C45, C119, C120 #### [facility] [address] [place] [address] [address] [place] [address] GFR/1.73 sq M.predicted MDRD (S/P/Bld) [Vol rate/Area] 54 mL/min per 1.73 Low >60 [facility] Comment on above: Order Comment: Fasti ng: Unknown Result Comment: The GFR estimate is not adjusted for race. If the patient's race is -Lebanese, the GFR estimate must be multiplied by a factor of 1.21. Performed By: #### C 80, C400, C408, C141, C48, C45, C119, C120 #### [facility] [address] [place] [address] [address] [place] [address] Glucose [Mass/Vol] 91 mg/dL Normal 74-100 [facility] Comment on above: Order Comment: Fasti ng: Unknown Performed By: #### C 80, C400, C408, C141, C48, C45, C119, C120 #### [facility] [address] [place] [address] [place] [address] Potassium [Moles/Vol] 3.9 mmol/L Normal 3.5-5.3 [facility] Comment on above: Order Comment: Fasti ng: Unknown Performed By: #### C 80, C400, C408, C141, C48, C45, C119, C120 #### [facility] [address] [place] [address] [place] [address] Sodium [Moles/Vol] 140 mmol/L Normal 135-145 [facility] Comment on above: Order Comment: Fasti ng: Unknown Performed By: #### C 80, C400, C408, C141, C48, C45, C119, C120 #### [facility] [address] [place] [address] [place] [address] Urea nitrogen [Mass/Vol] 15 mg/dL Normal 6-22 [facility] Comment on above: Order Comment: Fasti ng: Unknown Performed By: #### C 80, C400, C408, C141, C48, C45, C119, C120 #### [facility] [address] [place] [address] Free T4on 03-24-2019 Free T4 [Mass/Vol] 1.9 ng/dL High 0.7-1.8 [facility] Comment on above: Order Comment: Fasti ng: Unknown Performed By: #### C 80, C400, C408, C141, C48, C45, C119, C120 #### [facility] [place] [id number] TSHon 03-24-2019 TSH Qn 2.95 MIU/mL Normal 0.50-6.00 [facility] Comment on above: Performed By: #### C 80, C400, C408, C141, C48, C45, C119, C120 #### [facility] [place] [id number] Cholesterolon 02-10-2019 Cholesterol [Mass/Vol] 200 mg/dL High <200 [facility] Comment on above: Order Comment: Fasti ng: Unknown Performed By: #### C 80, C400, C408, C141, C48, C45, C119, C120 #### [facility] [address] [place] [address] Direct LDLon 02-10-2019 Cholesterol in LDL [Mass/Vol] 88 mg/dL Normal <130 [facility] Comment on above: Order Comment: Fasti ng: Unknown Result Comment: LDL goal dependent upon individual risk Performed By: #### C 80, C400, C408, C141, C48, C45, C119, C120 #### [facility] [address] [place] [address] HDLon 02-10-2019 Cholesterol in HDL [Mass/Vol] 90 mg/dL Normal >50 [facility] Comment on above: Order Comment: Fasti ng: Unknown Performed By: #### C 80, C400, C408, C141, C48, C45, C119, C120 #### [facility] [address] [place] [address] Triglycerideon 02-10-2019 Triglyceride [Mass/Vol] 119 mg/dL Normal <150 [facility] Comment on above: Order Comment: Fasti ng: Unknown Performed By: #### C 80, C400, C408, C141, C48, C45, C119, C120 #### [facility] [place] [address] B12/Folateon 02-09-2019 Cobalamin (Vitamin B12) [Mass/Vol] 989 pg/mL High 239-931 [facility] Comment on above: Order Comment: Fasti ng: Unknown Performed By: #### C 80, C400, C408, C141, C48, C45, C119, C120 #### [facility] [place] [address] Folate 8.12 ng/mL Normal 2.80-20.00 [facility] Comment on above: Order Comment: Fasti ng: Unknown Result Comment: Plea note: Over the counter high dose supplements of Biotin that are 20 to 300 times greater than the adequate daily intake of 30 mcg/day for adults may cause a bias of 10% or more to be observed in the measured Folate concentrations. Performed By: #### C 80, C400, C408, C141, C48, C45, C119, C120 #### [facility] [address] [place] [address] [place] [address] Basic Metabolic Panelon 01-23 Anion gap [Moles/Vol] 10.00 mmol/L Normal 8.00-16.00 [facility] Comment on above: Order Comment: Items in this order include: Basic Metabolic Panel , Iron and TIBC, Hepatic Panel, Ferritin, Free T4, TSH, B12/Folate, Vit D 25 [place] (Total), CBC with differential, HgbA1C, Urine, Random, Albumin/Crea , , , , , Testing Performed By: [facility] [address] [place] [address] Dr. Irma Shahid, Basket Turner Performed By: #### C 406, C3763, C1573, C80, C400, C408, C409, C136, C48, C45, C215 #### [facility] [address] [place] [address] B/C Ratio 16.0 Ratio Normal [facility] Comment on above: Order Comment: Items in this order include: Basic Metabolic Panel , Iron and TIBC, Hepatic Panel, Ferritin, Free T4, TSH, B12/Folate, Vit D 25 [place] (Total), CBC with differential, HgbA1C, Urine, Random, Albumin/Crea , , , , , Testing Performed By: [facility] [address] [place] [address] Dr. Irma Shahid, Basket Turner Performed By: #### C 406, C3763, C1573, C80, C400, C408, C409, C136, C48, C45, C215 #### [facility] [address] [place] [address] [address] [place] [address] Calcium [Mass/Vol] 9.4 mg/dL Normal 8.5-10.[address] [facility] Comment on above: Order Comment: Items in this order include: Basic Metabolic Panel , Iron and TIBC, Hepatic Panel, Ferritin, Free T4, TSH, B12/Folate, Vit D 25 [place] (Total), CBC with differential, HgbA1C, Urine, Random, Albumin/Crea , , , , , Testing Performed By: [facility] [address] [place], [place] [id number] Dr. Irma Shahid, Basket Turner Performed By: #### C 406, C3763, C1573, C80, C400, C408, C409, C136, C48, C45, C215 #### [facility] [address] [place] [address] [address] [place] [address] Chloride [Moles/Vol] 101 mmol/L Normal 98-107 [facility] Comment on above: Order Comment: Items in this order include: Basic Metabolic Panel , Iron and TIBC, Hepatic Panel, Ferritin, Free T4, TSH, B12/Folate, Vit D 25 [place] (Total), CBC with differential, HgbA1C, Urine, Random, Albumin/Crea , , , , , Testing Performed By: [facility] [address] [place], [place] [id number] Dr. Irma Shahid, Basket Turner Performed By: #### C 406, C3763, C1573, C80, C400, C408, C409, C136, C48, C45, C215 #### [facility], [facility]. [address] [place] [address] [address] [place] [address] CO2 [Moles/Vol] 27.0 mmol/L Normal 22.0-30.0 [facility] Comment on above: Order Comment: Items in this order include: Basic Metabolic Panel , Iron and TIBC, Hepatic Panel, Ferritin, Free T4, TSH, B12/Folate, Vit D 25 [place] (Total), CBC with differential, HgbA1C, Urine, Random, Albumin/Crea , , , , , Testing Performed By: [facility] [address] [place] [address] Irma Shahid, Basket Turner Performed By: #### C 406, C3763, C1573, C80, C400, C408, C409, C136, C48, C45, C215 #### [facility] [address] [place] [address] [address] [place] [address] Creatinine [Mass/Vol] 1.5 mg/dL High 0.1-1.2 [facility] Comment on above: Order Comment: Items in this order include: Basic Metabolic Panel , Iron and TIBC, Hepatic Panel, Ferritin, Free T4, TSH, B12/Folate, Vit D 25 [place] (Total), CBC with differential, HgbA1C, Urine, Random, Albumin/Crea , , , , , Testing Performed By: [facility] [address] [facility] [place] [address] Dr. Irma Shahid, Basket Turner Performed By: #### C 406, C3763, C1573, C80, C400, C408, C409, C136, C48, C45, C215 #### [facility] [address] [facility] [address] [place] [address] GFR/1.73 sq M.predicted MDRD (S/P/Bld) [Vol rate/Area] 34 mL/min per 1.73 Low >60 [facility] Comment on above: Order Comment: Items in this order include: Basic Metabolic Panel , Iron and TIBC, Hepatic Panel, Ferritin, Free T4, TSH, B12/Folate, Vit D 25 [place] (Total), CBC with differential, HgbA1C, Urine, Random, Albumin/Crea , , , , , Testing Performed By: [facility] [address] [place], [place] [address] Dr. Irma Shahid, Basket Turner Result Comment: The GFR estimate is not adjusted for race. If the patient's race is -Lebanese, the GFR estimate must be multiplied by a factor of 1.21. Performed By: #### C 406, C3763, C1573, C80, C400, C408, C409, C136, C48, C45, C215 #### [facility] [address] [facility] [address] [place] [address] Glucose [Mass/Vol] 93 mg/dL Normal 74-100 [facility] Comment on above: Order Comment: Items in this order include: Basic Metabolic Panel , Iron and TIBC, Hepatic Panel, Ferritin, Free T4, TSH, B12/Folate, Vit D 25 [place] (Total), CBC with differential, HgbA1C, Urine, Random, Albumin/Crea , , , , , Testing Performed By: [facility] [place] [address] Dr. Irma Shahid, Basket Turner Performed By: #### C 406, C3763, C1573, C80, C400, C408, C409, C136, C48, C45, C215 #### [facility] [address] [facility] [address] [place] [address] Potassium [Moles/Vol] 4.8 mmol/L Normal 3.5-5.3 [facility] Comment on above: Order Comment: Items in this order include: Basic Metabolic Panel , Iron and TIBC, Hepatic Panel, Ferritin, Free T4, TSH, B12/Folate, Vit D 25 [place] (Total), CBC with differential, HgbA1C, Urine, Random, Albumin/Crea , , , , , Testing Performed By: [facility] [address] [place] [address]. [place] [address] Dr. Irma Shahid, Basket Turner Performed By: #### C 406, C3763, C1573, C80, C400, C408, C409, C136, C48, C45, C215 #### [facility] [address] [place] [address] [address] [place] [address] Sodium [Moles/Vol] 138 mmol/L Normal 135-[address] [facility] Comment on above: Order Comment: Items in this order include: Basic Metabolic Panel , Iron and TIBC, Hepatic Panel, Ferritin, Free T4, TSH, B12/Folate, Vit D 25 [place] (Total), CBC with differential, HgbA1C, Urine, Random, Albumin/Crea , , , , , Testing Performed By: [facility] [address] [place] [address]. [place] [address] Dr. Irma Shahid, Basket Turner Performed By: #### C 406, C3763, C1573, C80, C400, C408, C409, C136, C48, C45, C215 #### [facility] [address] [place] [address] [address] [place] [address] Urea nitrogen [Mass/Vol] 24 mg/dL High 6-22 [facility] Comment on above: Order Comment: Items in this order include: Basic Metabolic Panel , Iron and TIBC, Hepatic Panel, Ferritin, Free T4, TSH, B12/Folate, Vit D 25 [place] (Total), CBC with differential, HgbA1C, Urine, Random, Albumin/Crea , , , , , Testing Performed By: [facility] [address] [place] [address]. [place] [address] Dr. Irma Shahid, Basket Turner Performed By: #### C 406, C3763, C1573, C80, C400, C408, C409, C136, C48, C45, C215 #### [facility] [facility] [address] [place] [address] CBC with differentialon 01-23 Basophils (Bld) [#/Vol] 0.0 K CUMM Normal 0.0-0.2 [facility] Comment on above: Order Comment: Items in this order include: Basic Metabolic Panel , Iron and TIBC, Hepatic Panel, Ferritin, Free T4, TSH, B12/Folate, Vit D 25 [place] (Total), CBC with differential, HgbA1C, Urine, Random, Albumin/Crea , , , , , Testing Performed By: [facility] [address] [place], [place] [address] Dr. Irma Shahid, Basket Turner Performed By: #### C 406, C3763, C1573, C80, C400, C408, C409, C136, C48, C45, C215 #### [facility] [address] [place] [address] [address] [place] [address] Basophils/100 WBC (Bld) 0.4 % Normal 0.0-3.0 [facility] Comment on above: Order Comment: Items in this order include: Basic Metabolic Panel , Iron and TIBC, Hepatic Panel, Ferritin, Free T4, TSH, B12/Folate, Vit D 25 [place] (Total), CBC with differential, HgbA1C, Urine, Random, Albumin/Crea , , , , , Testing Performed By: [facility] [address] [place], [place] [address] Dr. Irma Shahid, Basket Turner Performed By: #### C 406, C3763, C1573, C80, C400, C408, C409, C136, C48, C45, C215 #### [facility] [address] [facility] [address] [place] [address] Eosinophils (Bld) [#/Vol] 0.1 K CUMM Normal 0.0-0.4 [facility] Comment on above: Order Comment: Items in this order include: Basic Metabolic Panel , Iron and TIBC, Hepatic Panel, Ferritin, Free T4, TSH, B12/Folate, Vit D 25 [place] (Total), CBC with differential, HgbA1C, Urine, Random, Albumin/Crea , , , , , Testing Performed By: [facility] [address] [place], [place] [address] Dr. Irma Shahid, Basket Turner Performed By: #### C 406, C3763, C1573, C80, C400, C408, C409, C136, C48, C45, C215 #### [facility], [facility]. [address] [place] [address] [address] [place] [address] Eosinophils/100 WBC (Bld) 1.5 % Normal 0.0-7.0 [facility] Comment on above: Order Comment: Items in this order include: Basic Metabolic Panel , Iron and TIBC, Hepatic Panel, Ferritin, Free T4, TSH, B12/Folate, Vit D 25 [place] (Total), CBC with differential, HgbA1C, Urine, Random, Albumin/Crea , , , , , Testing Performed By: [facility] [address] [place] [address] [address] Irma Shahid, Basket Turner Performed By: #### C 406, C3763, C1573, C80, C400, C408, C409, C136, C48, C45, C215 #### [facility] [address] [place] [address] [address] [place] [address] Erythrocyte distribution width (RBC) [Ratio] 14.4 % Normal 11.5-15.5 [facility] Comment on above: Order Comment: Items in this order include: Basic Metabolic Panel , Iron and TIBC, Hepatic Panel, Ferritin, Free T4, TSH, B12/Folate, Vit D 25 [place] (Total), CBC with differential, HgbA1C, Urine, Random, Albumin/Crea , , , , , Testing Performed By: [facility] [address] [place] [address] Dr. Irma Shahid, Basket Turner Performed By: #### C 406, C3763, C1573, C80, C400, C408, C409, C136, C48, C45, C215 #### [facility] [address] [place] [address] [address] [place] [id number] Hematocrit (Bld) [Volume fraction] 38.4 % Normal 37.0-47.0 [facility] Comment on above: Order Comment: Items in this order include: Basic Metabolic Panel , Iron and TIBC, Hepatic Panel, Ferritin, Free T4, TSH, B12/Folate, Vit D 25 [place] (Total), CBC with differential, HgbA1C, Urine, Random, Albumin/Crea , , , , , Testing Performed By: [facility] [address] [place] [address] Dr. Irma Shahid, Basket Turner Performed By: #### C 406, C3763, C1573, C80, C400, C408, C409, C136, C48, C45, C215 #### [facility] [address] [place] [address] [address] [place] [address] Hemoglobin (Bld) [Mass/Vol] 12.7 g/dL Normal 11.5-15.5 [facility] Comment on above: Order Comment: Items in this order include: Basic Metabolic Panel , Iron and TIBC, Hepatic Panel, Ferritin, Free T4, TSH, B12/Folate, Vit D 25 [place] (Total), CBC with differential, HgbA1C, Urine, Random, Albumin/Crea , , , , , Testing Performed By: [facility] [address] [place], [place] [address] Dr. Irma Shahid, Basket Turner Performed By: #### C 406, C3763, C1573, C80, C400, C408, C409, C136, C48, C45, C215 #### [facility] [address] [place] [address] [address] [place] [address] ImmGrn # 0.0 K CUMM Normal 0.0-0.3 [facility] Comment on above: Order Comment: Items in this order include: Basic Metabolic Panel , Iron and TIBC, Hepatic Panel, Ferritin, Free T4, TSH, B12/Folate, Vit D 25 [place] (Total), CBC with differential, HgbA1C, Urine, Random, Albumin/Crea , , , , , Testing Performed By: [facility] [address] [place] [address] Dr. Irma Shahid, Basket Turner Performed By: #### C 406, C3763, C1573, C80, C400, C408, C409, C136, C48, C45, C215 #### [facility] [address] [place] [address] [address] [place] [address] ImmGrn % 0.3 % Normal 0.0-3.0 [facility] Comment on above: Order Comment: Items in this order include: Basic Metabolic Panel , Iron and TIBC, Hepatic Panel, Ferritin, Free T4, TSH, B12/Folate, Vit D 25 [place] (Total), CBC with differential, HgbA1C, Urine, Random, Albumin/Crea , , , , , Testing Performed By: [facility] [address] [place], [place] [address] Dr. Irma Shahid, Basket Turner Performed By: #### C 406, C3763, C1573, C80, C400, C408, C409, C136, C48, C45, C215 #### [facility] [address] [place] [address] [address] [place] [address] Lymphocytes (Bld) [#/Vol] 1.2 K CUMM Normal 0.7-4.5 [facility] Comment on above: Order Comment: Items in this order include: Basic Metabolic Panel , Iron and TIBC, Hepatic Panel, Ferritin, Free T4, TSH, B12/Folate, Vit D 25 [place] (Total), CBC with differential, HgbA1C, Urine, Random, Albumin/Crea , , , , , Testing Performed By: [facility] [address] [place] [address]. [place] [address] Dr. Irma Shahid, Basket Turner Performed By: #### C 406, C3763, C1573, C80, C400, C408, C409, C136, C48, C45, C215 #### [facility] [address] [place] [address] [address] [place] [address] Lymphocytes/100 WBC (Bld) 13.6 % Low 14.0-46.0 [facility] Comment on above: Order Comment: Items in this order include: Basic Metabolic Panel , Iron and TIBC, Hepatic Panel, Ferritin, Free T4, TSH, B12/Folate, Vit D 25 [place] (Total), CBC with differential, HgbA1C, Urine, Random, Albumin/Crea , , , , , Testing Performed By: [facility] [address] [place], [place] [address] Dr. Irma Shahid, Basket Turner Performed By: #### C 406, C3763, C1573, C80, C400, C408, C409, C136, C48, C45, C215 #### [facility] [address] [place] [address] [address] [place] [address] MCH (RBC) [Entitic mass] 31.3 pg High 27.0-31.0 [facility] Comment on above: Order Comment: Items in this order include: Basic Metabolic Panel , Iron and TIBC, Hepatic Panel, Ferritin, Free T4, TSH, B12/Folate, Vit D 25 [place] (Total), CBC with differential, HgbA1C, Urine, Random, Albumin/Crea , , , , , Testing Performed By: [facility] [address] [place] [address]. [place] [address] Dr. Irma Shahid, Basket Turner Performed By: #### C 406, C3763, C1573, C80, C400, C408, C409, C136, C48, C45, C215 #### [facility] [address] [place] [address] [address] [place] [address] MCHC (RBC) [Mass/Vol] 33.1 g/dL Normal 32.0-36.0 [facility] Comment on above: Order Comment: Items in this order include: Basic Metabolic Panel , Iron and TIBC, Hepatic Panel, Ferritin, Free T4, TSH, B12/Folate, Vit D 25 [place] (Total), CBC with differential, HgbA1C, Urine, Random, Albumin/Crea , , , , , Testing Performed By: [facility] [address] [place] [address] Dr. Irma Shahid, Basket Turner Performed By: #### C 406, C3763, C1573, C80, C400, C408, C409, C136, C48, C45, C215 #### [facility], [facility]. [address] [place] [address] [address] [place] [address] MCV (RBC) [Entitic vol] 94.6 fL Normal 78.0-100.0 [facility] Comment on above: Order Comment: Items in this order include: Basic Metabolic Panel , Iron and TIBC, Hepatic Panel, Ferritin, Free T4, TSH, B12/Folate, Vit D 25 [place] (Total), CBC with differential, HgbA1C, Urine, Random, Albumin/Crea , , , , , Testing Performed By: [facility] [address] [place], [place] [address] Dr. Irma Shahid, Basket Turner Performed By: #### C 406, C3763, C1573, C80, C400, C408, C409, C136, C48, C45, C215 #### [facility] [address] [place] [address] [address] [place] [address] Monocytes (Bld) [#/Vol] 0.8 K CUMM Normal 0.1-1.0 [facility] Comment on above: Order Comment: Items in this order include: Basic Metabolic Panel , Iron and TIBC, Hepatic Panel, Ferritin, Free T4, TSH, B12/Folate, Vit D 25 [place] (Total), CBC with differential, HgbA1C, Urine, Random, Albumin/Crea , , , , , Testing Performed By: [facility] [address] [place] [address] [address] [address] Irma Shahid, Basket Turner Performed By: #### C 406, C3763, C1573, C80, C400, C408, C409, C136, C48, C45, C215 #### [facility] [address] [place] [address] Monocytes/100 WBC (Bld) 8.7 % Normal 4.0-13.0 [facility] Comment on above: Order Comment: Items in this order include: Basic Metabolic Panel , Iron and TIBC, Hepatic Panel, Ferritin, Free T4, TSH, B12/Folate, Vit D 25 [place] (Total), CBC with differential, HgbA1C, Urine, Random, Albumin/Crea , , , , , Testing Performed By: [facility] [address] [place], [place] [address] Dr. Irma Shahid, Basket Turner Performed By: #### C 406, C3763, C1573, C80, C400, C408, C409, C136, C48, C45, C215 #### [facility] [address] [place] [address] [address] [place] [address] Neutrophils (Bld) [#/Vol] 6.8 K CUMM Normal 1.8-7.8 [facility] Comment on above: Order Comment: Items in this order include: Basic Metabolic Panel , Iron and TIBC, Hepatic Panel, Ferritin, Free T4, TSH, B12/Folate, Vit D 25 [place] (Total), CBC with differential, HgbA1C, Urine, Random, Albumin/Crea , , , , , Testing Performed By: [facility] [address] [place] [address]. [place] [address] Dr. Irma Shahid, Basket Turner Performed By: #### C 406, C3763, C1573, C80, C400, C408, C409, C136, C48, C45, C215 #### [facility] [address] [facility] [address] [place] [address] Neutrophils/100 WBC (Bld) 75.5 % High 40.0-74.0 [facility] Comment on above: Order Comment: Items in this order include: Basic Metabolic Panel , Iron and TIBC, Hepatic Panel, Ferritin, Free T4, TSH, B12/Folate, Vit D 25 [place] (Total), CBC with differential, HgbA1C, Urine, Random, Albumin/Crea , , , , , Testing Performed By: [facility] [address] [place] [address]. [place] [address] Dr. Irma Shahid, Basket Turner Performed By: #### C 406, C3763, C1573, C80, C400, C408, C409, C136, C48, C45, C215 #### [facility] [address] [place] [address] [address] [place] [address] Platelet mean volume (Bld) [Entitic vol] 10.9 fL Normal 8.9-12.6 [facility] Comment on above: Order Comment: Items in this order include: Basic Metabolic Panel , Iron and TIBC, Hepatic Panel, Ferritin, Free T4, TSH, B12/Folate, Vit D 25 [place] (Total), CBC with differential, HgbA1C, Urine, Random, Albumin/Crea , , , , , Testing Performed By: [facility] [address] [place] [address]. [place] [address] Dr. Irma Shahid, Basket Turner Performed By: #### C 406, C3763, C1573, C80, C400, C408, C409, C136, C48, C45, C215 #### [facility] [address] [place] [address] [address] [place] [address] Platelets (Bld) [#/Vol] 283 K CUMM Normal 130-400 [facility] Comment on above: Order Comment: Items in this order include: Basic Metabolic Panel , Iron and TIBC, Hepatic Panel, Ferritin, Free T4, TSH, B12/Folate, Vit D 25 [place] (Total), CBC with differential, HgbA1C, Urine, Random, Albumin/Crea , , , , , Testing Performed By: [facility] [address] [place] [address]. [place] [address] Dr. Irma Shahid, Basket Turner Performed By: #### C 406, C3763, C1573, C80, C400, C408, C409, C136, C48, C45, C215 #### [facility] [address] [facility] [address] [place] [address] RBC (Bld) [#/Vol] 4.06 M CUMM Normal 3.80-5.10 [facility] Comment on above: Order Comment: Items in this order include: Basic Metabolic Panel , Iron and TIBC, Hepatic Panel, Ferritin, Free T4, TSH, B12/Folate, Vit D 25 [place] (Total), CBC with differential, HgbA1C, Urine, Random, Albumin/Crea , , , , , Testing Performed By: [facility] [address] [place], [place] [address] Dr. Irma Shahid, Basket Turner Performed By: #### C 406, C3763, C1573, C80, C400, C408, C409, C136, C48, C45, C215 #### [facility] [address] [place] [address] [address] [place] [address] WBC (Bld) [#/Vol] 9.1 K CUMM Normal 3.8-10.6 [facility] Comment on above: Order Comment: Items in this order include: Basic Metabolic Panel , Iron and TIBC, Hepatic Panel, Ferritin, Free T4, TSH, B12/Folate, Vit D 25 [place] (Total), CBC with differential, HgbA1C, Urine, Random, Albumin/Crea , , , , , Testing Performed By: [facility] [address] [place] [address]. [place] [address] Dr. Irma Shahid, Basket Turner Performed By: #### C 406, C3763, C1573, C80, C400, C408, C409, C136, C48, C45, C215 #### [facility] [address] [place] [address] [address] [place] [address] Culture, Urineon 02-09-2019 RPT Microbiology results Abnormal [facility] Comment on above: Order Comment: Fasti ng: Unknown Result Comment: Elda l Result: Less than 10,000 CFU/mL of 2 or more organisms present. This usually indicates vaginal, urethral and/or skin contamination. ID and sensitivities will not be performed. Performed By: #### C 80, C400, C408, C141, C48, C45, C119, C120 #### [facility] [address] [place] [address] Ferritinon 02-09-2019 Ferritin [Mass/Vol] 103.7 ng/mL Normal 15.0-200.0 [facility] Comment on above: Order Comment: Fasti ng: Unknown Performed By: #### C 80, C400, C408, C141, C48, C45, C119, C120 #### [facility] [address] [facility] [address] [place] [address] Free T4on 02-09-2019 Free T4 [Mass/Vol] 2.0 ng/dL High 0.7-1.8 [facility] Comment on above: Performed By: #### C 80, C400, C408, C141, C48, C45, C119, C120 #### [facility] [address] [facility] [address] [place] [address] Hepatic Panelon 02-09-2019 Albumin [Mass/Vol] 4.6 g/dL Normal 3.5-5.0 [facility] Comment on above: Performed By: #### C 80, C400, C408, C141, C48, C45, C119, C120 #### [facility] [address] [place] [address] Alk Phos 57 U/L Normal 23-159 [facility] Comment on above: Performed By: #### C 80, C400, C408, C141, C48, C45, C119, C120 #### [facility] [address] [facility] [address] [place] [address] ALT [Catalytic activity/Vol] 27 U/L Normal 10-52 [facility] Comment on above: Performed By: #### C 80, C400, C408, C141, C48, C45, C119, C120 #### [facility] [address] [place] [address] AST [Catalytic activity/Vol] 29 U/L Normal 11-43 [facility] Comment on above: Performed By: #### C 80, C400, C408, C141, C48, C45, C119, C120 #### [facility] [address] [place] [address] Bili (Direct) 0.0 mg/dL Normal 0.0-0.3 [facility] Comment on above: Performed By: #### C 80, C400, C408, C141, C48, C45, C119, C120 #### [facility] [address] [facility] [address] [place] [address] Bili (Indirect) 0.3 mg/dL Normal 0.0-1.1 [facility] Comment on above: Performed By: #### C 80, C400, C408, C141, C48, C45, C119, C120 #### [facility] [address] [place] [address] [place] [address] Bilirubin [Mass/Vol] 0.8 mg/dL Normal 0.2-1.3 [facility] Comment on above: Performed By: #### C 80, C400, C408, C141, C48, C45, C119, C120 #### [facility] [address] [place] [address] Protein [Mass/Vol] 6.9 g/dL Normal 6.3-8.4 [facility] Comment on above: Performed By: #### C 80, C400, C408, C141, C48, C45, C119, C120 #### [facility] [address] [place] [address] [place] [address] [id number] 02-09-2019 HbA1c (Bld) [Mass fraction] 5.3 % Normal <5.7 [facility] Comment on above: Order Comment: Fasti ng: Unknown Result Comment: Refe rence Interval: Normal: below 5.7%. Prediabetes: 5.7% to 6.4%. Diabetes: 6.5% or above. Performed By: #### C 80, C400, C408, C141, C48, C45, C119, C120 #### [facility] [address] [place] [address] Iron and TIBCon 02-09-2019 % Saturation 36 % Normal 20-55 [facility] Comment on above: Order Comment: Fasti ng: Unknown Performed By: #### C 80, C400, C408, C141, C48, C45, C119, C120 #### [facility] [address] [place] [address] [address] [place] [address] Iron [Mass/Vol] 97 ug/dL Normal 37-170 [facility] Comment on above: Order Comment: Fasti ng: Unknown Performed By: #### C 80, C400, C408, C141, C48, C45, C119, C120 #### [facility] [place] [address] TIBC 271 ug/dL Normal 265-497 [facility] Comment on above: Order Comment: Fasti ng: Unknown Performed By: #### C 80, C400, C408, C141, C48, C45, C119, C120 #### [facility] [place] [address] TSHon 02-09-2019 TSH Qn 1.54 MIU/mL Normal 0.50-6.00 [facility] Comment on above: Order Comment: Fasti ng: Unknown Performed By: #### C 80, C400, C408, C141, C48, C45, C119, C120 #### [facility] [facility] [address] [place] [address] Urine, Random, Albumin/Creao n 02-09-2019 Albumin DL <= 20 mg/L (U) [Mass/Vol] 2.6 mg/dL High 0.0-1.6 [facility] Comment on above: Order Comment: Fasti ng: Unknown Performed By: #### C 80, C400, C408, C141, C48, C45, C119, C120 #### [facility] [address] [facility] [address] [place] [address] Creatinine (U) [Mass/Vol] 179.0 mg/dL Normal 28.0-217.0 [facility] Comment on above: Order Comment: Fasti ng: Unknown Performed By: #### C 80, C400, C408, C141, C48, C45, C119, C120 #### [facility] [address] [facility] [address] [place] [address] Urine Microalb/ Creat Ratio 14.5 mcg/mg creat Normal 0.0-29.9 [facility] Comment on above: Order Comment: Fasti ng: Unknown Result Comment: The ADA (Diabetes Care 26:s94-s98,2003) defines abnormalities in albumin excretion as follows: Category Result (mcg/mg creatinine) Normal <30 Microalbuminuria 30-299 Clinical Albuminuria > or =300 The ADA recommends that at least two of three specimens collected within a 3-6 month period be abnormal before considering a patient to be within a diagnostics category. Performed By: #### C 80, C400, C408, C141, C48, C45, C119, C120 #### [facility] [address] [facility] [facility] [address] [place] [address] Vit D 25 [place] (Total)on 2018 Vit D 25 [place] (Total) 34.3 ng/ml Normal 31.0-100.0 [facility] Comment on above: Order Comment: Fasti ng: Unknown Result Comment: Defi ciency <10 ng/ml Insufficiency 10-30 ng/ml Sufficiency 31-100 ng/ml Toxicity >100 ng/ml Performed By: #### C 80, C400, C408, C141, C48, C45, C119, C120 #### [facility] [address] [facility] [facility] [address] [place] [address] MA Mammo Digital Screening b ilat (NB)on 10-06-2018 MA Mammo Digital Screening bilat (NB) EXAMINATION TYPE: MA Mammo Digital Screening bilat (NB) DATE OF EXAM : 10/06/2018 2:34 PM PATIENT HISTORY: Menarche at age 14. Patient has no children. Postmenopausal. Maternal aunt had breast cancer at or over age 50. PRIOR STUDIES: 03/30/2007, 03/02/2009, 12/04/2010, 10/05/2012, 07/10/2015 REASON FOR STUDY: Breast Screening. TECHNIQUE: Digital mammography views were obtained. Computer-aided detection utilizing Top Hat[employer] reader has been performed. BREAST COMPOSITION: The breast tissue is almost entirely fatty FINDINGS: There are no suspicious abnormalities. There has been no significant interval change. IMPRESSION: No mammographic evidence for malignancy. BI-RADS Code: 1-Negative RECOMMENDATION: 1. Screening Mammogram in 1 year [facility] thanks you for the opportunity to care for your patient. Workstation ID: [id number] FINAL REPORT Dictated By: Becka Valentine MD 10/06/2018 14:45 Assigned Physician: Becka Valentine MD Reviewed and Electronically Signed By: Becka Valentine MD 10/06/2018 14:45 Transcribed by: PIERRE 10/06/2018 14:45 Technologist: LRYaakov [facility] XR Bone Density DXA Axial Sk [facility] 10-06-2018 DXA Skeletal system Views for bone density == Bone Density Report == Name: DEBRA GARCÍA Age: 77 Sex: Female Ethnicity: White Date of : 1940 -- Indication: postmenopausal osteoporosis; height loss; inflammatory bowel disease; hysterectomy; Referring Provider: NIA JOHNSON Study: Bone densitometry was performed. Exam Date: October 06, 2018 Accession number: [id number] Bone Density: -- Region BMD T-score Z-score Classification -- AP Spine(L1-L4) 1.150 0.9 3.5 Normal Femoral Neck (Left) 0.634 -1.9 0.3 Osteopenia Total Hip (Left) 0.789 -1.3 0.7 Osteopenia Femoral Neck (Right) 0.567 -2.5 -0.3 Osteoporosis Total Hip (Right) 0.738 -1.7 0.3 Osteopenia Total Hip Mean 0.764 -1.5 0.5 Osteopenia -- World Health Organization criteria for BMD impression classify patients as: Normal (T-score at or above -1.0), Osteopenia (T-score between -1.0 and -2.5), or Osteoporosis (T-score at or below -2.5). 10-year Fracture Risk: -- FRAX not reported because: Some T-score for Spine Total or Hip Total or Femoral Neck at or below -2.5 -- Previous Exams: -- Region Exam Age BMD T-score BMD Change BMD Change Date g/cm2 vs Baseline vs Previous -- AP Spine(L1-L4) 10/06/2018 77 1.150 0.9 -2.6%* -1.0% 08/01/2015 74 1.161 1.0 -1.7% 0.1% 10/05/2012 71 1.160 1.0 -1.8% 0.9% 03/02/2009 68 1.149 0.9 -2.7%* -4.4%* 12/24/2005 65 1.203 1.4 1.8% 1.8% 08/23/2003 62 1.181 1.2 Total Hip(Left) 10/06/2018 77 0.789 -1.3 -24.5%* -5.9%* 08/01/2015 74 0.838 -0.8 -19.8%* -5.3%* 10/05/2012 71 0.885 -0.5 -15.3%* 0.3% 03/02/2009 68 0.883 -0.5 -15.5%* -17.7%* 12/24/2005 65 1.072 1.1 2.6% 2.6% 08/23/2003 62 1.045 0.8 Femoral Neck(Left) 10/06/2018 77 0.634 -1.9 -31.3%* -3.2% 08/01/2015 74 0.655 -1.7 -29.0%* -8.2%* 10/05/2012 71 0.714 -1.2 -22.7%* -10.8%* 03/02/2009 68 0.800 -0.4 -13.4%* -5.0%* 12/24/2005 65 0.842 -0.1 -8.8%* -8.8%* 08/23/2003 62 0.923 0.7 Total Hip(Right) 10/06/2018 77 0.738 -1.7 -17.2%* -6.1%* 08/01/2015 74 0.786 -1.3 -11.8%* -6.0%* 10/05/2012 71 0.836 -0.9 -6.2%* -6.2%* 03/02/2009 68 0.891 -0.4 Femoral Neck(Right) 10/06/2018 77 0.567 -2.5 -17.9%* 0.5% 08/01/2015 74 0.564 -2.6 -18.3%* -7.3%* 10/05/2012 71 0.609 -2.2 -11.8%* -11.8%* 03/02/2009 68 0.690 -1.4 -- *Denotes significance at 95% confidence level, LSC for AP Spine = 0.022 g/cm2, LSC for Total Hip = 0.027 g/cm2 Clinical Information Provided by Patient: -- Has used the following medications: Vitamin D, Calcium Has the following medical conditions: Inflammatory bowel diseases, Hysterectomy Patient maximum height was 64 Menopause Age: 51 No regular weight bearing exercise Drinks caffeinated beverages Onset of menses at age 14 Number of children 0 -- Impression: The patient has osteoporosis, based on the Right Femoral Neck T-score. The BMD for the Total Hip(Left) decreased, changing by -5.9% since the last DXA exam. The BMD for the Total Hip(Right) decreased, changing by -6.1% since the last DXA exam. Discussion: INCREASED RISK OF FRACTURE. BONE DENSITY IS UNDESIRABLY LOW AT ONE OR MORE SKELETAL SITES, CONSISTENT WITH POSTMENOPAUSAL OSTEOPOROSIS. This patient's lowest T-score meets the World Health Organization's (WHO) criteria for osteoporosis at one or more sites (T-score -2.5 or below). In untreated patients, the risk of osteoporotic fracture increases approximately two-fold for each 1.0 SD decrease in T-score. Low bone density is not the only risk factor for fracture; also consider factors such as patient's age, frailty or poor health, risk of falling, risk of injury, previous osteoporotic fracture, family history of osteoporosis, cigarette smoking, low body weight, etc. Not everyone with low bone mineral density has osteoporosis; osteomalacia and other metabolic bone disorders should also be considered. Patients who have osteoporosis should be evaluated for specific diseases and conditions (secondary causes) that may cause or contribute to bone loss. The [place] Association of Clinical Endocrinologists (AACE) and National Osteoporosis Foundation (NOF) recommend pharmacologic intervention for all postmenopausal women whose T-score is in this range. The patient should follow a healthful lifestyle (good nutrition with adequate calcium and vitamin D, and appropriate weight-bearing exercise). Follow-Up: Consider a repeat BMD and Vertebral Fracture Assessment (VFA) exam in 2 years or sooner if medically necessary, to reassess this patient's status. Reported by: Becka Valentine MD on 10/08/2018 8:21:00 AM. FINAL REPORT Dictated By: Becka Valentine MD Assigned Physician: Becka Valentine MD Reviewed and Electronically Signed By: Becka Valentine MD 10/08/2018 08:25 10/08/2018 08:21 Technologist: JOANS [facility] ECG 12-LEADon 09-29-2018 Atrial Rate [facility] P-R Interval [facility] Q-T Interval [facility] Q-T Interval (corrected) [facility] QRS Duration [facility] QTC Calculation (Bezet) [facility] R [facility] T [facility] Ventricular Rate [facility] Basic Metabolic Panelon 06-25 Anion gap [Moles/Vol] 8.50 mmol/L Normal 8.00-16.00 [facility] Comment on above: Order Comment: Fasti ng: Unknown Performed By: #### C 80, C400, C408, C141, C48, C45, C119, C120 #### [facility] [address] [place] [address] B/C Ratio 15.0 Ratio Normal [facility] Comment on above: Order Comment: Fasti ng: Unknown Performed By: #### C 80, C400, C408, C141, C48, C45, C119, C120 #### [facility] [address] [place] [address] Calcium [Mass/Vol] 9.9 mg/dL Normal 8.5-10.5 [facility] Comment on above: Order Comment: Fasti ng: Unknown Performed By: #### C 80, C400, C408, C141, C48, C45, C119, C120 #### [facility] [address] [place] [address] Chloride [Moles/Vol] 102 mmol/L Normal 98-107 [facility] Comment on above: Order Comment: Fasti ng: Unknown Performed By: #### C 80, C400, C408, C141, C48, C45, C119, C120 #### [facility] [address] [place] [address] CO2 [Moles/Vol] 27.5 mmol/L Normal 22.0-30.0 [facility] Comment on above: Order Comment: Fasti ng: Unknown Performed By: #### C 80, C400, C408, C141, C48, C45, C119, C120 #### [facility] [address] [place] [address] [place] [address] Creatinine [Mass/Vol] 1.0 mg/dL Normal 0.1-1.2 [facility] Comment on above: Order Comment: Fasti ng: Unknown Performed By: #### C 80, C400, C408, C141, C48, C45, C119, C120 #### [facility] [address] [place] [address] [place] [address] GFR/1.73 sq M.predicted MDRD (S/P/Bld) [Vol rate/Area] 54 mL/min per 1.73 Low >60 [facility] Comment on above: Order Comment: Fasti ng: Unknown Result Comment: The GFR estimate is not adjusted for race. If the patient's race is -Lebanese, the GFR estimate must be multiplied by a factor of 1.21. Performed By: #### C 80, C400, C408, C141, C48, C45, C119, C120 #### [facility] [facility] [address] [place] [address] Glucose [Mass/Vol] 91 mg/dL Normal 74-100 [facility] Comment on above: Order Comment: Fasti ng: Unknown Performed By: #### C 80, C400, C408, C141, C48, C45, C119, C120 #### [facility] [facility] [address] [place] [address] Potassium [Moles/Vol] 3.8 mmol/L Normal 3.5-5.3 [facility] Comment on above: Order Comment: Fasti ng: Unknown Performed By: #### C 80, C400, C408, C141, C48, C45, C119, C120 #### [facility] [facility] [address] [place] [address] Sodium [Moles/Vol] 138 mmol/L Normal 135-145 [facility] Comment on above: Order Comment: Fasti ng: Unknown Performed By: #### C 80, C400, C408, C141, C48, C45, C119, C120 #### [facility] [address] [place] [address] [place] [address] Urea nitrogen [Mass/Vol] 15 mg/dL Normal 6-22 [facility] Comment on above: Order Comment: Fasti ng: Unknown Performed By: #### C 80, C400, C408, C141, C48, C45, C119, C120 #### [facility] [address] [place] [address] [place] [address] Direct LDLon 07-07-2018 Cholesterol in LDL [Mass/Vol] 126 mg/dL Normal <130 [facility] Comment on above: Order Comment: Items in this order include: Free T4, Direct LDL , Urine, Random, Albumin/Crea , HDL, TSH, Triglyceride, Basic Metabolic Panel , Hepatic Panel, , Fasting: Unknown Result Comment: LDL goal dependent upon individual risk Performed By: #### C 80, C400, C408, C141, C48, C45, C119, C120 #### [facility] [address] [place] [address] [address] [place] [address] Free T4on 07-07-2018 Free T4 [Mass/Vol] 1.5 ng/dL Normal 0.7-1.[address] [facility] Comment on above: Order Comment: Items in this order include: Free T4, Direct LDL , Urine, Random, Albumin/Crea , HDL, TSH, Triglyceride, Basic Metabolic Panel , Hepatic Panel, , Fasting: Unknown Performed By: #### C 80, C400, C408, C141, C48, C45, C119, C120 #### [facility] [facility] [address] [place] [id number] HDLon 07-07-2018 Cholesterol in HDL [Mass/Vol] 109 mg/dL Normal >50 [facility] Comment on above: Order Comment: Items in this order include: Free T4, Direct LDL , Urine, Random, Albumin/Crea , HDL, TSH, Triglyceride, Basic Metabolic Panel , Hepatic Panel, , Fasting: Unknown Performed By: #### C 80, C400, C408, C141, C48, C45, C119, C120 #### [facility] [address] [place] [address] [address] [place] [id number] Hepatic Panelon 07-07-2018 Albumin [Mass/Vol] 4.9 g/dL Normal 3.5-5.0 [facility] Comment on above: Order Comment: Fasti ng: Unknown Performed By: #### C 80, C400, C408, C141, C48, C45, C119, C120 #### [facility] [address] [place] [address] [place] [address] Alk Phos 79 U/L Normal 23-159 [facility] Comment on above: Order Comment: Fasti ng: Unknown Performed By: #### C 80, C400, C408, C141, C48, C45, C119, C120 #### [facility] [address] [place] [address] [place] [address] ALT [Catalytic activity/Vol] 21 U/L Normal 10-52 [facility] Comment on above: Order Comment: Fasti ng: Unknown Performed By: #### C 80, C400, C408, C141, C48, C45, C119, C120 #### [facility] [address] [place] [address] AST [Catalytic activity/Vol] 24 U/L Normal 11-43 [facility] Comment on above: Order Comment: Fasti ng: Unknown Performed By: #### C 80, C400, C408, C141, C48, C45, C119, C120 #### [facility] [address] [place] [address] Bili (Direct) 0.0 mg/dL Normal 0.0-0.3 [facility] Comment on above: Order Comment: Fasti ng: Unknown Performed By: #### C 80, C400, C408, C141, C48, C45, C119, C120 #### [facility] [address] [place] [address] [place] [address] Bili (Indirect) 0.3 mg/dL Normal 0.0-1.1 [facility] Comment on above: Order Comment: Fasti ng: Unknown Performed By: #### C 80, C400, C408, C141, C48, C45, C119, C120 #### [facility] [address] [place] [address] [place] [address] Bilirubin [Mass/Vol] 1.0 mg/dL Normal 0.2-1.3 [facility] Comment on above: Order Comment: Fasti ng: Unknown Performed By: #### C 80, C400, C408, C141, C48, C45, C119, C120 #### [facility] [address] [place] [address] Protein [Mass/Vol] 7.5 g/dL Normal 6.3-8.4 [facility] Comment on above: Order Comment: Fasti ng: Unknown Performed By: #### C 80, C400, C408, C141, C48, C45, C119, C120 #### [facility] [place] [address] TSHon 07-07-2018 TSH Qn 5.11 MIU/mL Normal 0.50-6.00 [facility] Comment on above: Order Comment: Items in this order include: Free T4, Direct LDL , Urine, Random, Albumin/Crea , HDL, TSH, Triglyceride, Basic Metabolic Panel , Hepatic Panel, , Fasting: Unknown Performed By: #### C 80, C400, C408, C141, C48, C45, C119, C120 #### [facility] [address] [place] [address] Triglycerideon 07-07-2018 CO2 [Moles/Vol] 107 mg/dL Normal <150 [facility] Comment on above: Order Comment: Fasti ng: Unknown Performed By: #### C 80, C400, C408, C141, C48, C45, C119, C120 #### [facility] [address] [place] [address] Urine, Random, Albumin/Creao n 07-07-2018 Albumin DL <= 20 mg/L (U) [Mass/Vol] 11.7 mg/dL High 0.0-1.6 [facility] Comment on above: Order Comment: Items in this order include: Free T4, Direct LDL , Urine, Random, Albumin/Crea , HDL, TSH, Triglyceride, Basic Metabolic Panel , Hepatic Panel, , Fasting: Unknown Performed By: #### C 80, C400, C408, C141, C48, C45, C119, C120 #### [facility] [address] [place] [address] Creatinine (U) [Mass/Vol] 95.2 mg/dL Normal 28.0-217.0 [facility] Comment on above: Order Comment: Items in this order include: Free T4, Direct LDL , Urine, Random, Albumin/Crea , HDL, TSH, Triglyceride, Basic Metabolic Panel , Hepatic Panel, , Fasting: Unknown Performed By: #### C 80, C400, C408, C141, C48, C45, C119, C120 #### [facility] [address] [place] [address] Urine Microalb/ Creat Ratio 122.9 mcg/mg creat High 0.0-29.9 [facility] Comment on above: Order Comment: Items in this order include: Free T4, Direct LDL , Urine, Random, Albumin/Crea , HDL, TSH, Triglyceride, Basic Metabolic Panel , Hepatic Panel, , Fasting: Unknown Result Comment: The ADA (Diabetes Care 26:s94-s98,2003) defines abnormalities in albumin excretion as follows: Category Result (mcg/mg creatinine) Normal <30 Microalbuminuria 30-299 Clinical Albuminuria > or =300 The ADA recommends that at least two of three specimens collected within a 3-6 month period be abnormal before considering a patient to be within a diagnostics category. Performed By: #### C 80, C400, C408, C141, C48, C45, C119, C120 #### [facility] [address] [place] [address] CBC WITH AUTO DIFFERENTIALon 07-02-2018 Basophils #/vol (Bld) 0.04 10*3/uL [facility] Basophils/100 WBC (Bld) 0.5 % [facility] Eosinophils #/vol (Bld) 0.11 10*3/uL [facility] Eosinophils/100 WBC (Bld) 1.4 % [facility] Erythrocyte distribution width Entitic volume (RBC) 15.1 % High 11.6 - 14.8 % [facility] Hematocrit Volume Fraction (Bld) 38.0 % 36 - 46 % [facility] Hemoglobin mass conc (Bld) 12.6 g/dL 12 - 16 g/dL [facility] Immature granulocytes #/vol (Bld) 0.06 10*3/uL [facility] Immature granulocytes/100 WBC (Bld) 0.80 % [facility] Comment on above: The IG parameter is the percentage of metamyelocytes, myelocytes, and promyelocytes. Interpretation and review of laboratory results Abnormal [facility] Lymphocytes #/vol (Bld) 0.69 10*3/uL Low [facility] Lymphocytes/100 WBC (Bld) 8.7 % [facility] MCH Entitic mass (RBC) 32.4 pg 26 - 34 pg [facility] MCHC mass conc (RBC) 33.2 g/dL 31 - 37 g/dL [facility] MCV Entitic volume (RBC) 97.7 fL 80 - 100 fL [facility] Monocytes #/vol (Bld) 0.74 10*3/uL [facility] Monocytes/100 WBC (Bld) 9.3 % [facility] Neutrophils #/vol (Bld) 6.28 10*3/uL [facility] Neutrophils/100 WBC (Bld) 79.3 % [facility] Nucleated RBC #/vol (Bld) 0.00 10*3/uL [facility] Nucleated RBC/100 WBC Ratio (Bld) 0.0 % [facility] Platelet mean volume Entitic volume (Bld) 10.8 fL 9 - 15.5 fL [facility] Platelets #/vol (Bld) 216 10*3/uL [facility] RBC #/vol (Bld) 3.89 10*6/uL Low [facility] WBC #/vol (Bld) 7.92 10*3/uL [facility] Chem 7on 07-02-2018 Anion gap molar conc 16 mmol/L 10 - 20 mmol/L [facility] Chloride molar conc 103 mmol/L 98 - 108 mmol/L [facility] Creatinine mass conc 1.12 mg/dL 0.6 - 1.2 mg/dL [facility] GFR/1.73 sq M predicted among non-blacks MDRD vol rate/area (S/P/Bld) The eGFR should be used for monitoring renal function only and not for medication dosing. [facility] GFR/1.73 sq M.predicted CKD-EPI vol rate/area (S/P/Bld) 47 Low >=60 mL/min/1.73 m2 [facility] Glucose mass conc 117 mg/dL High 65 - 99 mg/dL [facility] HCO3 molar conc 27 mmol/L 21 - 32 mmol/L [facility] Interpretation and review of laboratory results Abnormal [facility] Potassium molar conc 4.3 mmol/L 3.5 - 5.1 mmol/L [facility] Sodium molar conc 142 mmol/L 135 - 145 mmol/L [facility] Urea nitrogen mass conc 24 mg/dL 8 - 25 mg/dL [facility] Urea nitrogen/Creatinine mass ratio 21.4 mg/mg High [facility] Otheron 07-02-2018 Extra Tube Hold for add-ons. [facility] Comment on above: Auto resulted. URINALYSISon 07-02-2018 Bacteria Auto Ql (U) Rare Abnormal None Seen /hpf [facility] Bilirubin Ql (U) Negative Negative [facility] th Clarity Refractometry automated Nom (U) Clear Clear [facility] Color Nom (U) Yellow Colorless, Yellow [facility] Epithelial cells.squamous Auto #/area (Urine sed) <1 [facility] Glucose Automated test strip mass conc (U) Negative Negative mg/dL [facility] Hemoglobin Automated test strip Ql (U) Negative Negative [facility] Hyaline casts Auto #/area (Urine sed) 3-5 Abnormal 0 - 2 /lpf [facility] Interpretation and review of laboratory results Abnormal [facility] Ketones mass conc (U) Negative Negative mg/dL [facility] Leukocyte esterase Automated test strip Ql (U) Negative Negative [facility] Mucus Auto #/area (Urine sed) Rare None Seen, Rare /lpf [facility] Nitrite Automated test strip Ql (U) Negative Negative [facility] pH (U) 6.0 [pH] [facility] Protein mass conc (U) Negative Negative mg/dL [facility] RBC Auto #/area (Urine sed) <1 [facility] Specific gravity Relative Density (U) 1.010 [facility] Urobilinogen mass conc (U) <2.0 <2.0 mg/dL [facility] WBC Auto #/area (Urine sed) <1 [facility] Microscopic examination is performed on all urinalysis samples and only positive findings are reported. The test for blood on the chemical analytic portion of urinalysis may also be positive due to hemoglobinuria and myoglobinuria and if red blood cells are present they are quantified by microscopic examination. [facility] Hepatic Function Panelon Alanine aminotransferase (ALT) 10 U/L Invalid Interpretation Code 0 - 40 U/L [facility] Albumin 4.4 g/dL Invalid Interpretation Code 3.2 - 5.2 g/dL [facility] Alkaline phosphatase (ALP) 58 U/L Invalid Interpretation Code 40 - 150 U/L [facility] Aspartate aminotransferase (AST) 15 U/L Invalid Interpretation Code 0 - 45 U/L [facility] Bilirubin (conjugated) 0.2 mg/dL Invalid Interpretation Code 0 - 0.4 mg/dL [facility] Bilirubin (total) 0.7 mg/dL Invalid Interpretation Code 0 - 1.3 mg/dL [facility] Protein 6.6 g/dL Invalid Interpretation Code 6 - 8 g/dL [facility] TSH with Reflex Free T4on Interpretation and review of laboratory results Normal Invalid Interpretation Code [facility] Thyroid stimulating hormone (TSH) 5.00 mcIU/mL Invalid Interpretation Code 0.32 - 5.00 [facility] XR Chest AP/PA and LATon XR Chest AP/PA and LAT 1. No acute cardiopulmonary process. 2. Stable hiatal hernia. 3. 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 FINDINGS: Frontal and lateral views of the chest are submitted. Elevation and eventration of the right hemidiaphragm is stable. 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 The cardiomediastinal silhouette, lungs, pleural spaces and pulmonary vasculature are normal. No acute osseous lesions are seen. The patient is post prior right rotator cuff surgery. Invalid Interpretation Code [employer] [facility] XR Chest AP/PA and LAT Interface, Rad In [place] Speech[employer] - 07/08/2017 6:04 PM EST EXAMINATION: 2-VIEW CHEST HISTORY: ORDERING SYSTEM PROVIDED HISTORY: [facility] current use of 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 drug, TECHNOLOGIST PROVIDED HISTORY: Reason for exam: Class III Monitoring Illness/Other Cancer History: n Surgery, RadiationHistory: n Encounter Type: Subsequent/Follow-up Additional signs and symptoms: n ORDERING SYSTEM PROVIDED DIAGNOSIS CODES: Z79.899 [facility] current use of 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 drug COMPARISON: Chest x-ray 04/02/2016 and 11/01/2012. FINDINGS: Frontal and lateral views of the chest are submitted. Elevation and eventration of the right hemidiaphragm is stable. 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 The cardiomediastinal silhouette, lungs, pleural spaces and pulmonary vasculature are normal. No acute osseous lesions are seen. The patient is post prior right rotator cuff surgery. IMPRESSION: 1. No acute cardiopulmonary process. 2. Stable hiatal hernia. 3. 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 VKR/dbg Workstation ID: [id number] Invalid Interpretation Code [email or web address] [facility] ECG 12 Leadon 04-08-2017 Atrial Rate Invalid Interpretation Code [facility] Work Phone: P [place] Invalid Interpretation Code [facility] Work Phone: P-R Interval Invalid Interpretation Code [facility] Work Phone: Q-T Interval Invalid Interpretation Code [facility] Phone: Q-T Interval (corrected) Invalid Interpretation Code [facility] Phone: QRS Duration Invalid Interpretation Code [facility] Phone: QTC Calculation (Bezet) Invalid Interpretation Code [facility] Phone: R [place] Invalid Interpretation Code [facility] Phone: T [place] Invalid Interpretation Code [facility] Phone: Ventricular Rate Invalid Interpretation Code [facility] Phone: Hepatic Function Panelon Alanine aminotransferase (ALT) 9 U/L Invalid Interpretation Code 0 - 40 U/L [facility] Albumin 4.3 g/dL Invalid Interpretation Code 3.2 - 5.2 g/dL [facility] Alkaline phosphatase (ALP) 63 U/L Invalid Interpretation Code 40 - 150 U/L [facility] Aspartate aminotransferase (AST) 13 U/L Invalid Interpretation Code 0 - 45 U/L [facility] Bilirubin (conjugated) 0.2 mg/dL Invalid Interpretation Code 0 - 0.4 mg/dL [facility] Bilirubin (total) 0.4 mg/dL Invalid Interpretation Code 0 - 1.3 mg/dL [facility] Interpretation and review of laboratory results Normal Invalid Interpretation Code [facility] Protein 6.5 g/dL Invalid Interpretation Code 6 - 8 g/dL [facility] T4, Freeon 04-08-2017 Thyroxine (T4) free 1.5 ng/dL Invalid Interpretation Code 0.7 - 1.7 ng/dL [facility] TSH with Reflex Free T4on Interpretation and review of laboratory results Abnormal Invalid Interpretation Code [facility] Thyroid stimulating hormone (TSH) 8.89 mcIU/mL High 0.32 - 5.00 [facility] Vital Signs Date Time Vital Sign Value Performing Clinician Facility 02-17-2023 15:00-0400 Body height 149.86 cm Boyd Bustamante Other [employer] [facility] Other 02-17-2023 15:00-0400 Body mass index (BMI) [Ratio] 31.71 kg/m2 Boyd Bustamante Other [facility] [employer] Other 02-17-2023 15:00-0400 Body weight 71.22 kg Boyd Bustamante Other [employer] Other 02-17-2023 15:00-0400 Diastolic blood pressure 70 mm[Hg] Boyd Bustamante Other [employer] Other 02-17-2023 15:00-0400 SaO2% (BldA) [Mass fraction] 97 % Boyd Bustamnate Other [employer] Other 02-17-2023 15:00-0400 Systolic blood pressure 90 mm[Hg] Boyd Bustamante Other [facility] [employer] Other 07-01-2022 15:30-0500 Body height 149.86 cm Boyd Bustamante Other [facility] [employer] Other 07-01-2022 15:30-0500 Body mass index (BMI) [Ratio] 32.92 kg/m2 Boyd Bustamante Other [employer] Other 07-01-2022 15:30-0500 Body weight 73.94 kg Boyd Bustamante Other [employer] Other 07-01-2022 15:30-0500 Diastolic blood pressure 72 mm[Hg] Boyd Bustamante Other [employer] Other 07-01-2022 15:30-0500 SaO2% (BldA) [Mass fraction] 98 % Boyd Bustamante Other [employer] Other 07-01-2022 15:30-0500 Systolic blood pressure 126 mm[Hg] Boyd Bustamante Other [employer] Other 01-06-2020 10:18-0400 BMI (Body Mass Index) 27.5 kg/m2 [facility] 01-06-2020 10:18-0400 Body weight 72.67 kg [facility] 01-06-2020 10:18-0400 BP Diastolic 68 mm[Hg] [facility] 01-06-2020 10:18-0400 BP Systolic 116 mm[Hg] [facility] 01-06-2020 10:18-0400 Height 162.6 cm [facility] 01-06-2020 10:18-0400 Pulse (Heart Rate) 57 /min [facility] 09-29-2018 14:07-0400 BMI (Body Mass Index) 32.27 kg/m2 [facility] 09-29-2018 14:07-0400 BP Diastolic 73 mm[Hg] [facility] 09-29-2018 14:07-0400 BP Systolic 122 mm[Hg] [facility] 09-29-2018 14:07-0400 Height 162.6 cm [facility] 09-29-2018 14:07-0400 Pulse (Heart Rate) 63 /min [facility] 09-29-2018 14:07-0400 Weight 85.28 kg [facility] 07-02-2018 09:02-0500 BP Diastolic 56 mm[Hg] Tito Snell [facility] 07-02-2018 09:02-0500 BP Systolic 127 mm[Hg] Tito Snell [facility] 07-02-2018 09:02-0500 Pulse (Heart Rate) 70 /min Tito Snell [facility] 07-02-2018 09:02-0500 Pulse Oximetry 96 % Tito Snell [facility] 07-02-2018 09:02-0500 Respiratory Rate 16 /min Tito Snell [facility] 07-02-2018 05:27-0500 BMI (Body Mass Index) 36.22 kg/m2 Tito Snell [facility] 07-02-2018 05:27-0500 Body Temperature 98.6 [degF] Tito Snell [facility] 07-02-2018 05:27-0500 Height 162.6 cm Tito [facility] 07-02-2018 05:27-0500 Weight 95.71 kg Tito Snell [facility] 04-08-2017 11:19-0500 BMI (Body Mass Index) 35.53 kg/m2 Leonora Saunders [facility] Work Phone: 04-08-2017 11:19-0500 BP Diastolic 74 mm[Hg] Leonora Saunders [facility] Work Phone: 04-08-2017 11:19-0500 BP Systolic 120 mm[Hg] Leonora Saunders [facility] Work Phone: 04-08-2017 11:19-0500 Height 162.6 cm Leonora Saunders [facility] Work Phone: 04-08-2017 11:19-0500 Pulse (Heart Rate) 66 /min Leonora Saunders [facility] Work Phone: 04-08-2017 11:19-0500 Weight 93.89 kg Leonora Saunders [facility] Work Phone: Encounters Encounter Date Encounter Type Care Provider Facility Start: 05-26-2023 End: 05-26-2023 ambulatory [facility] Start: 05-11-2023 ambulatory [facility] Start: 05-11-2023 End: 05-11-2023 ambulatory PARAM PADRON [facility] Start: 04-23-2023 End: 04-23-2023 ambulatory SHELMITH WITHERELL [facility] Start: 04-11-2023 Evaluation and manag ement of inpatient JOVANNY FORREST [facility] Start: 04-10-2023 End: 04-11-2023 Evaluation and management of inpatient BECKY LOPEZ [facility] Start: 03-27-2023 End: 03-27-2023 ambulatory GRACIA [facility] Start: 02-26-2023 End: 02-26-2023 ambulatory GROVER GARCIA [facility] Start: 02-17-2023 End: 02-17-2023 ambulatory PARAM PADRON [employer] Other Start: 02-17-2023 Office outpatient vi sit 15 minutes Boyd Bustamante [facility] Start: 01-21-2023 End: 01-21-2023 ambulatory Boyd Bustamante Other [employer] Other Start: 01-21-2023 Telephone encounter Boyd Bustamante [facility] Start: 01-19-2023 End: 01-19-2023 ambulatory Boyd Bustamante Other [employer] Other Start: 01-19-2023 Telephone encounter Boyd Bustamante [facility] Start: 12-03-2022 ambulatory GRACIA [facility] Start: 11-28-2022 End: 11-28-2022 ambulatory Boyd Bustamante Other [employer] Other Start: 11-28-2022 Telephone encounter Boyd Bustamante [facility] Start: 10-22-2022 End: 10-22-2022 ambulatory Boyd Bustamante Other [employer] Other Start: 10-22-2022 Telephone encounter Boyd Bustamante [facility] Start: 10-21-2022 End: 10-21-2022 ambulatory Boyd Bustamante Other [facility] [employer] Other Start: 10-21-2022 Telephone encounter Boyd Bustamante [facility] Start: 09-24-2022 End: 09-25-[address] BOYD BUSTAMANTE Facility:[facility] Start: 08-19-2022 End: 08-19-2022 ambulatory Boyd Bustamante Other [employer] Other Start: 08-19-2022 Telephone encounter Boyd Bustamante [facility] Start: 08-12-2022 End: 08-13-[address] BOYD BUSTAMANTE [facility] [employer] [facility] Other Start: 08-12-2022 Telephone encounter Boyd Bustamante [facility] Start: 07-24-2022 End: 07-25-[address] BOYD BUSTAMANTE Facility:[facility] Start: 07-17-[address] BOYD BUSTAMANTE Facil ity:[facility] Start: 07-02-2022 End: 07-02-2022 ambulatory Boyd Bustamante Other [employer] Other Start: 07-02-2022 Telephone encounter Boyd Bustamante [facility] Start: 07-01-2022 End: 07-01-2022 ambulatory Boyd Bustamante Other [employer] Other Start: 07-01-2022 Patient encounter procedure Boyd Bustamante [facility] Start: 09-18-2020 Refill Leonora Saunders MD Work Phone: [facility] Comment on above: Medication Refill Start: 06-14-2020 End: 06-14-2020 Orders Only Tessy Ashly Gomez Work Phone: [facility] Start: 02-03-2020 End: 02-07-2020 Patient encounter procedure NIA JOHNSON [facility] Start: 01-09-2020 End: 01-09-2020 Patient encounter procedure Shelia Beckett Work Phone: [facility] Start: 01-06-2020 End: 01-10-2020 Patient encounter procedure LEONORA SAUNDERS [facility] Start: 01-06-2020 End: 01-07-2020 Patient encounter procedure LEONORA SAUNDERS [facility] Start: 01-06-2020 End: 01-06-2020 Office outpatient visit 15 minutes Leonora Saunders Work Phone: [facility] Comment on above: PAF (paroxysmal atri al fibrillation) (HCC) (Primary Dx); 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 Start: 04-19-2019 End: 04-19-2019 Patient encounter procedure Leonora Saunders Work Phone: [facility] Start: 03-09-2019 End: 03-13-2019 Patient encounter procedure NIA JOHNSON [facility] Start: 03-07-2019 End: 03-07-2019 Patient encounter procedure Leonora Saunders Work Phone: [facility] Start: 09-29-2018 End: 09-29-2018 Office outpatient visit 25 minutes Leonora Saunders Work Phone: [facility] Comment on above: PAF (paroxysmal atri al fibrillation) (HCC) (Primary Dx); 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, unspecified type; [facility] current use of 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 drug Start: 09-28-2018 End: 09-28-2018 Patient encounter procedure Leonora Saunders Work Phone: [facility] Start: 08-11-2018 End: 08-11-2018 Patient encounter procedure Leonora Saunders Work Phone: [facility] Start: 07-05-2018 End: 07-05-2018 Patient encounter procedure Leonora Saunders Work Phone: [facility] Start: 07-02-2018 End: 07-02-2018 Evaluation and management of inpatient Tito Snell Work Phone: [facility] Start: 04-09-2018 End: 04-09-2018 Patient encounter procedure Leonora Saunders Work Phone: [facility] Start: 04-05-2018 End: 04-05-2018 Patient encounter Leonora Saunders Work Phone: [facility] Start: 12-30-2017 End: 12-30-2017 Patient encounter Leonora Saunders Work Phone: [facility] Start: 08-11-2017 Patient encounter Leonora Saunders Work Phone: [facility] Start: 07-08-2017 End: 07-08-2017 Ambulatory Leonora Saunders Work Phone: [facility] Start: 06-17-2017 Ambulatory Leonora Saunders Work Phone: [facility] Start: 04-08-2017 Office outpatient vi sit 15 minutes Leonora Saunders Work Phone: [facility] Start: 04-08-2017 End: 04-08-2017 Ambulatory Leonora Saunders Work Phone: [facility] Start: 03-24-2017 Ambulatory Leonora Saunders Work Phone: [facility] Start: 03-13-2017 Patient encounter Leonora Saunders Work Phone: [facility] Start: 01-09-2017 End: 01-09-2017 Patient encounter procedure Leonora Saunders Work Phone: [facility] Start: 12-01-2016 End: 12-01-2016 Patient encounter procedure Leonora Saunders Work Phone: [facility] Procedures Date Procedure Procedure Detail Performing Clinician Start: 01-06-2020 12 lead ECG Leonora Saunders Work Phone: Start: 01-06-2020 Standard chest X-ray St yeyo Saunders Work Phone: Start: 09-29-2018 12 lead ECG Leonora Saunders Work Phone: Start: 07-02-2018 Urinalysis Tito porter Rimer Work Phone: Start: 07-02-2018 X-ray of chest and abdomen Tito Snell Work Phone: Start: 07-02-2018 Basic metabolic 1998 panel - Serum or Plasma Tito Snell Work Phone: Start: 07-02-2018 Complete blood count with white cell differential, automated Tito Snell Work Phone: Start: 07-02-2018 Complete blood count with white cell differential, manual Tito Snell Work Phone: Start: 07-02-2018 HAYWOOD TOP Tito Ventura en Rimer Work Phone: Start: 07-02-2018 LIGHT BLUE TOP Tito Snell Work Phone: Start: 07-02-2018 LIGHT GREEN TOP Tito Taylorer Work Phone: Start: 07-02-2018 PINK TOP Tito Ventura en Rimer Work Phone: Start: 07-02-2018 RAINBOW DRAW Tito All en Rimer Work Phone: Removal of suture Boyd Bra un Other Removal of suture Boyd Bra un Other Plan of Treatment Date Care Activity Detail Author Start: 05-03-2031 Tetanus vaccination Tetanus: Every 1 0yrs [facility] Start: 01-23-2022 Influenza vaccination Sequenti al Influenza Vaccine (#1) [facility] Start: 01-05-2021 CLASS III : OFFICE VISIT CLASS III : OFFICE VISIT [facility] Start: 08-02-2020 Thyroid stimulating hormone measurement Class III : TSH [facility] Start: 07-08-2020 Alanine aminotransfe rase measurement CLASS III : ALT [facility] Start: 03-09-2020 CLASS III : EKG CLASS III : EKG [facility] Start: 02-10-2020 History and physical examination, annual for health maintenance Wellness Visit [facility] Start: 01-24-2020 Influenza vaccinatio n given Sequential Influenza Vaccine (#1) [facility] Start: 09-30-2019 CLASS III : OFFICE VISIT CLASS III : OFFICE VISIT [facility] Start: 09-28-2019 CLASS III : EKG CLASS III : EKG [facility] Start: 09-08-2019 CLASS III : ALT CLASS III : ALT [facility] Start: 09-08-2019 CLASS III : AST CLASS III : AST [facility] Start: 09-08-2019 CLASS III : TSH CLASS III : TSH [facility] Start: 03-30-2019 CLASS III : ALT CLASS III : ALT [facility] Start: 03-30-2019 CLASS III : AST CLASS III : AST [facility] Start: 03-30-2019 CLASS III : TSH CLASS III : TSH [facility] Start: 03-04-2019 CLASS III : EKG CLASS III : EKG [facility] Start: 01-23-2019 Influenza vaccinatio n given [facility] Start: 09-29-2018 End: 09-29-[address] [facility] Start: 09-02-2018 CLASS III : ALT CLASS III : ALT [facility] Start: 09-02-2018 CLASS III : AST CLASS III : AST [facility] Start: 09-02-2018 CLASS III : TSH CLASS III : TSH [facility] Start: 07-08-2018 CLASS III : EKG CLASS III : EKG [facility] Start: 04-08-2018 CLASS III : OFFICE VISIT CLASS III : OFFICE VISIT [facility] Work Phone: Start: 01-23-2018 Influenza vaccination [facility] Start: 01-23-2018 Influenza vaccinatio n given SEQUENTIAL INFLUENZA VACCINE (#1) [facility] Start: 01-06-2018 CLASS III : EKG CLASS III : EKG [employer] Work Phone: Start: 01-05-2018 CLASS III : ALT CLASS III : ALT [facility] Start: 01-05-2018 CLASS III : AST CLASS III : AST [facility] Start: 01-05-2018 CLASS III : TSH CLASS III : TSH [employer] Start: 10-06-2017 CLASS III : ALT CLASS III : ALT [employer] Phone: Start: 10-06-2017 CLASS III : AST CLASS III : AST [employer] Phone: Start: 10-06-2017 CLASS III : TSH CLASS III : TSH [employer] Phone: Start: 07-09-2017 CLASS III : ALT CLASS III : ALT [employer] Phone: Start: 07-09-2017 CLASS III : AST CLASS III : AST [employer] Phone: Start: 07-09-2017 CLASS III : TSH CLASS III : TSH [employer] Phone: Start: 04-04-2017 CLASS III : EKG CLASS III : EKG [employer] Phone: Start: 04-02-2017 CLASS III : OFFICE VISIT CLASS III : OFFICE VISIT [employer] Phone: Start: 01-23-2017 Influenza vaccination SEQUENTI AL INFLUENZA VACCINE (#1) [employer] Work Phone: Start: 01-23-2017 SEQUENTIAL INFLUENZA VACCINE (#1) SEQUENTIAL INFLUENZA VACCINE (#1) [employer] Phone: Start: 09-30-2016 CLASS III : ALT CLASS III : ALT [employer] Phone: Start: 09-30-2016 CLASS III : AST CLASS III : AST [employer] Phone: Start: 09-30-2016 CLASS III : TSH CLASS III : TSH [employer] Phone: Start: 11-15-2015 Pneumococcal vaccination PNEUM OCOCCAL VACCINE AGE 65+ (2 of 2 - PPSV23) [facility] Start: 11-15-2015 Pneumococcal Vaccine : Age 65+ (2 - PPSV23 if available, else PCV20) Pneumococcal Vaccine: Age 65+ (2 - PPSV23 if available, else PCV20) [facility] Start: 2005 Fall risk assessment [facility] Start: 2005 Pneumococcal vaccination PNEUM OCOCCAL VACCINE AGE 65+ (1 of 2 - PCV13) [facility] Work Phone: Start: 2005 PNEUMOCOCCAL VACCINE AGE 65+ (1 of 2 - PCV13) PNEUMOCOCCAL VACCINE AGE 65+ (1 of 2 - PCV13) [facility] Work Phone: Start: 2000 Zoster vacc, sc ZOSTER VACCINE [facility] Work Phone: Start: 1990 Administration of he rpes zoster vaccine ZOSTER VACCINES (1 of 2) [facility] Start: 1990 ZOSTER VACCINES (1 of 2) ZOSTE R VACCINES (1 of 2) [facility] Start: 12-18-1959 Administration of he rpes zoster vaccine Zoster Vaccines (1 of 2) [facility] Start: 1958 Hepatitis C antibody , confirmatory test Hepatitis C Screening [facility] Start: 1952 Adolescent depressio n screening assessment Depression Screening (PHQ9) [facility] Start: 1952 Depression screening using PHQ-9 (Patient Health Questionnaire 9) score Depression Screening (PHQ-2/9) [facility] Start: 12-18-1943 History and physical examination, annual for health maintenance Wellness Visit [facility] Start: 06-19-1941 COVID-19 Vaccine (#1) COVID-19 Vacci ne (#1) [facility] Start: 1940 DEXA SCAN DEXA SCAN [facility] Work Phone: Start: 1940 Fall risk assessment Falls Risk Asse ssment [facility] Start: 1940 Protein mass conc Mammogram [facility] Start: 1940 Screening mammography Mammogram [facility] Start: 1940 TETANUS EVERY 10 YR TETANUS EVERY 10 YR [facility] Work Phone: Start: 1940 End: 1940 Screening for osteoporosis DEXA SCAN [facility] Start: 1940 End: 1940 Tetanus vaccination [facility] Work Phone: End: 07-02-2018 Bacteria identified Aer cx Nom (Unsp spec) Urine Aerobic Culture Routine Once for 1 Occurrences starting 07/02/2018 until 07/02/2018 [facility] Comment on above: Once for 1 Occurrenc es starting 07/02/2018 until 07/02/2018 Bacteria identified Aer cx Nom (Unsp spec) Urine Aerobic Culture Routine 07/02/2018 8:08 AM EST [facility] X-ray of chest and abdomen XR Ab domen 2 Views With Chest 1 View STAT 07/02/2018 6:50 AM EST [facility] Payers Date Payer Category Payer Medicare [id number] 2014 Medicare [id number] 2014 Medicare [employer] [place]NA[place]ED [place] DIC[place] [employer] MEDICARE PLAN (PPO) [id number] 2014-Present [id number] 2014 Medicare [employer] [place]NA[place] [employer] [place]IC[place] PLAN (PPO) [id number] 2014-Present [phone] [address] [place] [address] [id number] 1959 Medicare [id number] 1940 Unknown [id number] 1940 Unknown [id number] 1940 Unknown [id number] 1940 Unknown [id number] 1940 Unknown [id number] 1940 Unknown [id number] 1940 Unknown [id number] 1940 Unknown [id number] 1940 Unknown [id number] 1940 Unknown [id number] Social History Date Type Detail Facility Start: 04-08-2017 End: 01-06-2020 Tobacco smoking status NHIS Former smoker [facility] Work Phone: End: 05-25-1969 History of tobacco use Current smoker [facility] Work Phone: Start: 1940 Sex Assigned At Not on file [facility] [employer] Work Phone: Start: 07-02-2018 End: 01-06-2020 Alcohol intake Current non-drinker of alcohol (finding) [facility] Exposure to SARS-CoV-2 (event) Not sure [facility] Start: 04-08-2017 End: 01-06-2020 Tobacco use and exposure Never used [facility] End: 05-25-1969 History of tobacco use Cigarette Smoker [facility] Sex Assigned At Sex Assigned At [facility] [employer] Other Clinical Notes 09-18-2020 to 05-26-2023 Note Date & Type Note Facility 05-26-2023 Note Patient here for fol low up cardioversion. Review of Systems Constitutional: Positive for malaise/fatigue. Hematologic/Lymphatic: Bruises/bleeds easily. All other systems reviewed and are negative. [facility] 05-26-2023 Note [facility] Consult Note Reason for visit: Afib, s/p DCCV on amiodarone 05/11/23 05/26/23: Patient here for follow up s/p DCCV Was successful and patient cardioverted to SR on amiodarone She has been feeling well without complaints of CP, SOB, OREILLY< LE edema ECG today is paced rhythm with intermittent atrial flutter , HR 76 and she is asymptomatic of this 02/17/23 HPI: Debra García is a 82 y.o. year old with past medical history of htn, GERD, sleep apnea, mitral valve prolapse, A-fib, c-diff, TIA, HLD, it is noted in her H&P per PCP she has been on a medication for afib but it caused her thyroid issues. She had previous seen a chalk cutter and an outlying facility and recently moved here about 2 years ago and has not established with a chalk cutter. She was seen by Gracia SOSA and subsequently started on anticoagulation with Eliqukelly. previously she had afib ablation with [facility] before 2009 had for unclear reasons was not placed on anticoagulation when he saw her. she got admitted to [place] ED on 02/06/2023 following a fall. versus attributed to be a mechanical fall as she tripped on the corner curb. no loss of consciousness. CT of the head was negative for any hemorrhage. she had some lacerations which were sutured. She had a recent echocardiogram done which showed cardiomyopathy with a EF of 35 to 40%. [id number] at least 6 for age, gender, hypertension, TIA -not anticoagulated ECG 02/17/23 Afib with RVR 02/06/2023 shows atrial fibrillation 12/03/2022 A-fib 100bpm 06/11/2020 sinus rhythm Echocardiogram 02/02/2023 PMH: No past medical history on file. PSH: No past surgical history on file. SH: Social Determinants of Health Tobacco Use: Medium Risk (03/27/2023) Patient History Smoking Tobacco Use: Former Smokeless Tobacco Use: Never Passive Exposure: Not on file Alcohol Use: Not on file Financial Resource Strain: Low Risk (04/10/2023) Overall Financial Resource Strain (CARDIA) Difficulty of Paying Living Expenses: Not hard at all Food Insecurity: Unknown (04/10/2023) Hunger Vital Sign Worried About Running Out of Food in the Last Year: Never true Ran Out of Food in the Last Year: Not on file Transportation Needs: Unknown (04/10/2023) PRAPARE - Transportation Lack of Transportation (Medical): No Lack of Transportation (Non-Medical): Not on file Physical Activity: Not on file Stress: Not on file Social Connections: Not on file Intimate Partner Violence: Unknown (04/10/2023) Humiliation, Afraid, Rape, and Kick questionnaire Fear of Current or Ex-Partner: No Emotionally Abused: Not on file Physically Abused: Not on file Sexually Abused: Not on file Depression: Not on file Housing Stability: Unknown (04/10/2023) Housing Stability Vital Sign Unable to Pay for Housing in the Last Year: Not on file Number of Places Lived in the Last Year: Not on file Unstable Housing in the Last Year: No Allergies: Allergies Allergen Reactions Adhesive Paper Tape is ok Sulfa (Sulfonamide Antibiotics) Hives Weight: 71.7kg Visit Vitals Ht 1.626 m (5' 4 ) Wt 71.7 kg (158 lb) BMI 27.12 kg/m??? OB Status Postmenopausal Smoking Status Former BSA 1.8 m??? Meds: Current Outpatient Medications on File Prior to Visit Medication Sig Dispense Refill amiodarone (Pacerone) 200 mg tablet Take 2 tablets (400 mg) by mouth in the morning and at bedtime for 14 days, THEN 1 tablet (200 mg) in the morning. Do not start before March 30, 2023. (Patient taking differently: 200mg once daily) 236 tablet 0 amLODIPine (Norvasc) 10 mg tablet Take 10 mg by mouth in the morning. apixaban (Eliquis) 5 mg tablet Take 1 tablet (5 mg) by mouth in the morning and at bedtime. Do not start before April 14, 2023. 60 tablet 0 atorvastatin (Lipitor) 20 mg tablet Take 20 mg by mouth in the morning. azaTHIOprine (Imuran) 50 mg tablet Take 50 mg by mouth in the morning and at bedtime. azelastine (Astelin) 137 mcg (0.1 %) nasal spray Administer 1 spray into each nostril in the morning and at bedtime. Use in each nostril as directed balsalazide (Colazal) 750 mg capsule Take 750 mg by mouth in the morning and at bedtime. 2 capsules daily buPROPion XL (Wellbutrin XL) 150 mg 24 hr tablet Take 150 mg by mouth in the morning, at noon, and at bedtime. cholecalciferol, vitamin D3, (Vitamin D3) 10 mcg (400 unit) capsule Take by mouth. cyanocobalamin (Vitamin B-12) 1,000 mcg tablet Take 1,000 mcg by mouth in the morning. dapagliflozin propanediol (Farxiga) 10 mg Take 1 tablet (10 mg) by mouth in the morning. 30 tablet 11 losartan (Cozaar) 50 mg tablet Take 50 mg by mouth in the morning. metoprolol succinate XL (Toprol-XL) 25 mg 24 hr tablet Take 1 tablet (25 mg) by mouth in the morning. Do not crush or chew. 30 tablet 11 multivitamin capsule Take 1 capsule by mouth in the morning. omega-3 fatty acids/fish oil (FISH OIL EXTRA STRENGTH ORAL) Take 3 capsules (more content not included)... [facility] 05-11-2023 Note Patient: Debra engel Procedure Information Date/Time: 05/11/23 1200 Procedure: Cardioversion Location: [facility] HOLDING ROOM / [facility] (Cath) Providers: Param Padron MD Clinical information reviewed: Allergies Meds OB Status Physical Exam Airway Mallampati: II TM distance: >3 FB Neck ROM: full Cardiovascular Dental Pulmonary Abdominal Anesthesia Plan ASA 2 CSE Anesthetic plan and risks discussed with patient. Use of blood products discussed with patient who. Additional Equipment Requests [facility] 04-23-2023 Note Patient seen for wou nd check s/p pacemaker placement on 04/10/2023. Wound is clean, dry, intact, and well approximated no ecchymosis. Discussed wound care including avoiding, rubbing, lotions, direct shower head pressure, caution with seat belt and bra straps, as well as avoiding other irritants. No lifting heavy weights using arm on the same side. Do not lift elbow above the shoulder on the same side for 4-6 weeks. No driving for 3 weeks. Scheduled with device check and routine follow-up appointment. RECOMMENDATIONS: 1. Dressing to be removed after 1week. 2. Do not wet the incision for 7 days. 3. No lifting heavy weights using arm on the same side. 4. Do not lift elbow above the shoulder on the same side for 4-6 weeks. 5. No driving for 1 month. [facility] 04-23-2023 Note Patient here for wou nd check s/p device insertion with Dr. Forrest on 04/10/2023. [facility] 04-10-2023 Note Indications for perm anent pacemaker placement. The patient is a 80-year-old woman who presented with heart block. She has a history of atrial fibrillation and also of heart block. She was hypotensive and extremely bradycardic. Because of the complete heart block she will undergo permanent pacemaker implantation Seizure: Informed consent was obtained she was brought to the pacemaker laboratory in the fasting state. The a contrast injection was performed to delineate the course and patency of the left subclavian. The left subclavicular fossa was prepped and draped in usual manner 1% Xylocaine solution infiltrated for local anesthesia. Utilizing percutaneous technique the left subclavian was cannulated and under fluoroscopic guidance guidewires advanced to the level of the inferior vena cava to ensure intervascular placement. Then following initial sharp incision meticulous blunt dissection was employed to create a subfascial pocket. Via 2 breakaway introducer sheaths Biotronik active-fixation leads were fluoroscopically guided into positions in the right ventricular septum and right atrial and right atrial appendage. The active-fixation coils of each were deployed and the leads were sutured into place with an 0 silk suture.They were connected to a Be Spottedronik dual-chamber pacing system. This was placed in the previously created subfascial pocket. It was sutured into place with an 0 silk suture. The off field telemetry adequate sensing and pacing levels were determined. The right ventricular lead showed a pacing threshold of 1.4 V at 0.4 ms pulse width with an R wave amplitude of 8.5 mV and impedance of 682 ohms. The right atrial lead showed a P wave amplitude of 1.1 mV and impedance of 468 ohms. The pocket was irrigated with antibiotic solution. The fascial layer closed with a continuous 2-0 Vicryl suture. The subdermal layer with interrupted 3-0 Biosyn sutures placed utilizing a buried knot technique. The skin surface was closed with Dermabond glue and the wound was dressed with a Telfa pad and Tegaderm dressing. Sponge and needle counts were correct at the end of the case and prior to the procedure the patient received 1 g of intravenous vancomycin as antibiotic prophylaxis. Conscious sedation was maintained throughout the case with intravenous midazolam and fentanyl. She was returned to the holding area in stable hemodynamic condition. Impressions: Dual-chamber pacemaker insertion Fluoroscopy Conscious sedation Contrast injection for venography of the upper extremity Jovanny Forrest M.D. [facility] Professorfunctional consultant and Pediatrics Director: Cardiac Electrophysiology Program [facility] 04-10-2023 Note Patient: Debra engel Procedure Information Date/Time: 04/10/232319 Procedure: Implant PPM Location: [facility] 1 EP / [facility] (Cath) Providers: Jovanny Forrest MD Clinical information reviewed: Allergies Physical Exam Airway Mallampati: I Cardiovascular - normal exam Dental - normal exam Pulmonary - normal exam Abdominal - normal exam Anesthesia Plan ASA 2 The patient is not a current smoker. Patient was not previously instructed to abstain from smoking on day of procedure. Patient did not smoke on day of procedure. Education provided regarding risk of obstructive sleep apnea. Anesthetic plan and risks discussed with patient. Use of blood products discussed with patient who. Additional Equipment Requests [facility] 04-10-2023 Note Patient: Debra engel Procedure Information Date/Time: 04/10/232319 Procedure: Implant PPM Location: [facility] 1 EP / [facility] (Cath) Providers: Jovanny Forrest MD Clinical information reviewed: Allergies Physical Exam Airway Mallampati: I Cardiovascular - normal exam Dental - normal exam Pulmonary - normal exam Abdominal - normal exam Anesthesia Plan Additional Equipment Requests [facility] 03-27-2023 Note [place] Electrophysiology Consult Note Reason for visit: Afib 03/27/23: Patient here for follow up Has had some OREILLY and notices HR can become rapid at times with exertion Discussed amio and RODY/CV to see if SR can be restored Discussed if unable to restore SR maybe need to consider ablation vs PPM/Avn ablation given new onset HFrEF 02/17/23 HPI: Debra García is a 82 y.o. year old with past medical history of htn, GERD, sleep apnea, mitral valve prolapse, A-fib, c-diff, TIA, HLD, it is noted in her H&P per PCP she has been on a medication for afib but it caused her thyroid issues. She had previous seen a chalk cutter and an outlying facility and recently moved here about 2 years ago and has not established with a chalk cutter. She was seen by Gracia [facility] and subsequently started on anticoagulation with Eliquis. previously she had afib ablation with [facility] before 2009 had for unclear reasons was not placed on anticoagulation when he saw her. she got admitted to [place] ED on 02/06/2023 following a fall. versus attributed to be a mechanical fall as she tripped on the corner curb. no loss of consciousness. CT of the head was negative for any hemorrhage. she had some lacerations which were sutured. She had a recent echocardiogram done which showed cardiomyopathy with a EF of 35 to 40%. [id number] at least 6 for age, gender, hypertension, TIA -not anticoagulated ECG 02/17/23 Afib with RVR 02/06/2023 shows atrial fibrillation 12/03/2022 A-fib 100bpm 06/11/2020 sinus rhythm Echocardiogram 02/02/2023 PMH: History reviewed. No pertinent past medical history. PSH: History reviewed. No pertinent surgical history. SH: Social Determinants of Health Tobacco Use: Medium Risk (03/27/2023) Patient History Smoking Tobacco Use: Former Smokeless Tobacco Use: Never Passive Exposure: Not on file Alcohol Use: Not on file Financial Resource Strain: Not on file Food Insecurity: Not on file Transportation Needs: Not on file Physical Activity: Not on file Stress: Not on file Social Connections: Not on file Intimate Partner Violence: Not on file Depression: Not on file Housing Stability: Not on file Allergies: Allergies Allergen Reactions Adhesive Paper Tape is ok Sulfa (Sulfonamide Antibiotics) Hives Weight: 73kg Visit Vitals BP 110/70 (BP Location: Left arm, Patient Position: Sitting, BP Cuff Size: Adult) Pulse 69 Resp 11 Ht 1.626 m (5' 4 ) Wt 73 kg (161 lb) SpO2 98% BMI 27.64 kg/m??? Smoking Status Former BSA 1.82 m??? Meds: Current Outpatient Medications on File Prior to Visit Medication Sig Dispense Refill amLODIPine (Norvasc) 10 mg tablet Take 10 mg by mouth in the morning. apixaban (Eliquis) 5 mg tablet Take 1 tablet (5 mg) by mouth in the morning and at bedtime. 60 tablet 11 atorvastatin (Lipitor) 20 mg tablet Take 20 mg by mouth in the morning. azaTHIOprine (Imuran) 50 mg tablet Take 50 mg by mouth in the morning and at bedtime. azelastine (Astelin) 137 mcg (0.1 %) nasal spray Administer 1 spray into each nostril in the morning and at bedtime. Use in each nostril as directed balsalazide (Colazal) 750 mg capsule Take 750 mg by mouth in the morning and at bedtime. 2 capsules daily buPROPion XL (Wellbutrin XL) 150 mg 24 hr tablet Take 150 mg by mouth in the morning, at noon, and at bedtime. cholecalciferol, vitamin D3, (Vitamin D3) 10 mcg (400 unit) capsule Take by mouth. cyanocobalamin (Vitamin B-12) 1,000 mcg tablet Take 1,000 mcg by mouth in the morning. losartan (Cozaar) 50 mg tablet Take 50 mg by mouth in the morning. metoprolol succinate XL (Toprol-XL) 25 mg 24 hr tablet Take 1 tablet (25 mg) by mouth in the morning. Do not crush or chew. 30 tablet 11 multivitamin capsule Take 1 capsule by mouth in the morning. omega-3 fatty acids/fish oil (FISH OIL EXTRA STRENGTH ORAL) Take 3 capsules by mouth in the morning. pantoprazole (ProtoNix) 40 mg EC tablet Take 40 mg by mouth before breakfast. Do not crush, chew, or split. potassium chloride CR (Klor-Con) 8 mEq ER tablet Take 8 mEq by mouth in the morning and at bedtime. Take two tablets 2x daily Synthroid 100 mcg tablet Take 100 mcg by mouth in the morning. txevfdv-yaon-vjbpp-oreg-capryl 100 mg-150 mg- 50 mg-150 mg capsule Take 1 capsule by mouth in the morning. venlafaxine XR (Effexor-XR) 75 mg 24 hr capsule Take 75 mg by mouth in the morning, at noon, and at bedtime. vit C,P-Ck-tfadc-lutein-zeaxan (PreserVision AREDS-2) 250-90-40-1 mg capsule Take 2 capsules by mouth in the morning. No current facility-administered medications on file prior to visit. Review of Systems Constitutional: Positive for malaise/fatigue. Cardiovascular: Positive for dyspnea on exertion, irregular heartbeat and palpitations. Negative for chest pain. Neurological: Negative for dizziness and light-headedness. All other systems reviewed and are negative. Physical Exam: Constitutional Ge (more content not included)... [facility] 02-17-2023 Note [facility] Electrophysiology Consult Note Reason for visit: Afib HPI: Debra García is a 82 y.o. year old with past medical history of htn, GERD, sleep apnea, mitral valve prolapse, A-fib, c-diff, TIA, HLD, it is noted in her H&P per PCP she has been on a medication for afib but it caused her thyroid issues. She had previous seen a chalk cutter and an outlying facility and recently moved here about 2 years ago and has not established with a chalk cutter. She was seen by Gracia [facility] and subsequently started on anticoagulation with Eliquis. previously she had afib ablation with [facility] before 2009 had for unclear reasons was not placed on anticoagulation when he saw her. she got admitted to [place] ED on 02/06/2023 following a fall. versus attributed to be a mechanical fall as she tripped on the corner curb. no loss of consciousness. CT of the head was negative for any hemorrhage. she had some lacerations which were sutured. She had a recent echocardiogram done which showed cardiomyopathy with a EF of 35 to 40%. [id number] at least 6 for age, gender, hypertension, TIA -not anticoagulated ECG 02/17/23 Afib with RVR 02/06/2023 shows atrial fibrillation 12/03/2022 A-fib 100bpm 06/11/2020 sinus rhythm Echocardiogram 02/02/2023 PMH: No past medical history on file. PSH: No past surgical history on file. SH: Social Determinants of Health Tobacco Use: Medium Risk (12/03/2022) Patient History Smoking Tobacco Use: Former Smokeless Tobacco Use: Never Passive Exposure: Not on file Alcohol Use: Not on file Financial Resource Strain: Not on file Food Insecurity: Not on file Transportation Needs: Not on file Physical Activity: Not on file Stress: Not on file Social Connections: Not on file Intimate Partner Violence: Not on file Depression: Not on file Housing Stability: Not on file Allergies: Allergies Allergen Reactions Adhesive Paper Tape is ok Sulfa (Sulfonamide Antibiotics) Hives Weight: No weight available Visit Vitals Smoking Status Former Meds: Current Outpatient Medications on File Prior to Visit Medication Sig Dispense Refill amLODIPine (Norvasc) 10 mg tablet Take 10 mg by mouth in the morning. apixaban (Eliquis) 5 mg tablet Take 1 tablet (5 mg) by mouth in the morning and at bedtime. 60 tablet 11 atorvastatin (Lipitor) 20 mg tablet Take 20 mg by mouth in the morning. azaTHIOprine (Imuran) 50 mg tablet Take 50 mg by mouth in the morning and at bedtime. balsalazide (Colazal) 750 mg capsule Take 750 mg by mouth in the morning, at noon, and at bedtime. buPROPion XL (Wellbutrin XL) 150 mg 24 hr tablet Take 150 mg by mouth in the morning, at noon, and at bedtime. losartan (Cozaar) 50 mg tablet Take 50 mg by mouth in the morning. metoprolol succinate XL (Toprol-XL) 25 mg 24 hr tablet Take 1 tablet (25 mg) by mouth in the morning. Do not crush or chew. 30 tablet 11 potassium chloride CR (Klor-Con) 8 mEq ER tablet Take 8 mEq by mouth in the morning and at bedtime. Take two tablets 2x daily Synthroid 100 mcg tablet Take 100 mcg by mouth in the morning. venlafaxine XR (Effexor-XR) 75 mg 24 hr capsule Take 75 mg by mouth in the morning, at noon, and at bedtime. No current facility-administered medications on file prior to visit. ROS: Cardio Basic Cardiovascular Symptoms: no lightheadedness, no leg edema, no syncope, no orthopnea, no PND, no claudication, Constitutional Constitutional: no fever, no night sweats, no significant weight gain, no significant weight loss, no exercise intolerance Eyes Eyes: no dry eyes, no irritation, no vision change ENMT Ears: no difficulty hearing, no ear pain Nose: no frequent nosebleeds, Mouth/Throat: no sore throat, no bleeding gums, no snoring, no dry mouth, no mouth ulcers, no oral abnormalities, no teeth problems Respiratory Respiratory: no cough, no wheezing, no coughing up blood, no sleep apnea Musculoskeletal Musculoskeletal: no muscle aches, no muscle weakness, joint pain+, no back pain, no swelling in the extremities Integumentary Skin no rash, no ulcer, no varicosities, no discoloration, no pruritus Neurologic Neurologic: no loss of consciousness, no weakness, no numbness, no seizures, no dizziness, no headaches Psychiatric Psych: no depression, feeling safe in relationship, no alcohol abuse, Hematologic/Lymphatic Hematologic/Lymphatic no swollen glands, no bruising Physical Exam: Constitutional General Appearance: well-nourished, well-developed, appears stated age Level of Distress: comfortable Psychiatric Mental Status: alert, normal affect Orientation: oriented to time, place, and person Insight: good judgement Eyes Lids and Conjunctivae: non-injected, no xanthelasma ENMT Ears: no lesions on external ear Nose: no lesions on external nose Oropharynx: no cyanosis, no pallor Neck Neck: supple, trachea midline Carotid Arteries: bilateral normal upstroke, n (more content not included)... [facility] 02-17-2023 Evaluation note Encounter Date Diagnosis Assessment Notes Jan, Visit for suture removal (ICD-10 - Z48.02) 3 sutures removed from R 3rd finger - tolerated well. Jan, Atrial fibrillation (ICD-10 - I48.91) BP low today. Pt states she just left Dr. Garay's office and she is scheduled for a heart cath. [employer] Other 07-22-2023 Note- noted as history per PCP - [facility]- stable, continue medicationsUnSt. [facility]07-[facility]- [id number] at least 6 for age, gender, hypertension, TIA - for some reason has not been anticoagulated we will start her on Eliquis 5 mg twice daily - she denies any history of bleeding in the brain, abdomen, GI bleed, GI ulcers - we will start metoprolol succinate 25 mg daily for rate control - given the history she tells me she did not tolerate amiodarone very well so for now since she is asymptomatic I will aim for rate controlUnSt. Rita's Hospital07-12-2023 NotePatient is here today to establish care regarding atrial fibrillation Review of Systems Constitutional: Positive for malaise/fatigue. Cardiovascular: Positive for irregular heartbeat and palpitations. Respiratory: Positive for cough, shortness of breath and snoring. All other systems reviewed and are negative.[facility] 12-03-2022 NoteUT Electrophysiology Consult Note Reason for visit: New patient, A-fib, referred by PCP 06/2022 to establish with cardiology due to history of A-fib and mitral valve regurgitation HPI: Debra García is a 81 y.o. year old with past medical history of htn, GERD, sleep apnea, mitral valve prolapse, A-fib, c-diff, TIA, HLD, it is noted in her H&P per PCP she has been on a medication for afib but it caused her thyroid issues. [facility] and recently moved here about 2 years ago and has not established with a chalk cutter. She is not anticoagulated She supposedly had afib ablation with [facility] before 2009 she has had no complaints of chest pain, shortness of breath, OREILLY, LE edema. She had referral sent back in June per PCP [id number] at least 6 for age, gender, hypertension, TIA -not anticoagulated ECG 12/03/2022 A-fib 100bpm 06/11/2020 sinus rhythm Medications: Amlodipine 10 mg daily, Synthroid 100 mcg, Lipitor 20 mg, losartan 50 mg daily, Effexor, Colazal, Wellbutrin PMH: History reviewed. No pertinent past medical history. PSH: History reviewed. No pertinent surgical history. SH: Social Determinants of Health Tobacco Use: Medium Risk (12/03/2022) Patient History Smoking Tobacco Use: Former Smokeless Tobacco Use: Never Passive Exposure: Not on file Alcohol Use: Not on file Financial Resource Strain: Not on file Food Insecurity: Not on file Transportation Needs: Not on file Physical Activity: Not on file Stress: Not on file Social Connections: Not on file Intimate Partner Violence: Not on file Depression: Not on file Housing Stability: Not on file Allergies: Allergies Allergen Reactions Adhesive Paper Tape is ok Sulfa (Sulfonamide Antibiotics) Hives Weight: 71kg Visit Vitals BP 124/74 (BP Location: Left arm, Patient Position: Sitting, BP Cuff Size: Adult) Pulse 64 Ht 1.626 m (5' 4 ) Wt 71 kg (156 lb 9.6 oz) SpO2 98% BMI 26.88 kg/m??? Smoking Status Former BSA 1.79 m??? Meds: Current Outpatient Medications on File Prior to Visit Medication Sig Dispense Refill amLODIPine (Norvasc) 10 mg tablet Take 10 mg by mouth in the morning. atorvastatin (Lipitor) 20 mg tablet Take 20 mg by mouth in the morning. azaTHIOprine (Imuran) 50 mg tablet Take 50 mg by mouth in the morning and at bedtime. balsalazide (Colazal) 750 mg capsule Take 750 mg by mouth in the morning, at noon, and at bedtime. buPROPion XL (Wellbutrin XL) 150 mg 24 hr tablet Take 150 mg by mouth in the morning, at noon, and at bedtime. losartan (Cozaar) 50 mg tablet Take 50 mg by mouth in the morning. potassium chloride CR (Klor-Con) 8 mEq ER tablet Take 8 mEq by mouth in the morning and at bedtime. Take two tablets 2x daily Synthroid 100 mcg tablet Take 100 mcg by mouth in the morning. venlafaxine XR (Effexor-XR) 75 mg 24 hr capsule Take 75 mg by mouth in the morning, at noon, and at bedtime. No current facility-administered medications on file prior to visit. ROS: Cardio Basic Cardiovascular Symptoms: no lightheadedness, no leg edema, no syncope, no orthopnea, no PND, no claudication, Constitutional Constitutional: no fever, no night sweats, no significant weight gain, no significant weight loss, no exercise intolerance Eyes Eyes: no dry eyes, no irritation, no vision change ENMT Ears: no difficulty hearing, no ear pain Nose: no frequent nosebleeds, Mouth/Throat: no sore throat, no bleeding gums, no snoring, no dry mouth, no mouth ulcers, no oral abnormalities, no teeth problems Respiratory Respiratory: no cough, no wheezing, no coughing up blood, no sleep apnea Musculoskeletal Musculoskeletal: no muscle aches, no muscle weakness, joint pain+, no back pain, no swelling in the extremities Integumentary Skin no rash, no ulcer, no varicosities, no discoloration, no pruritus Neurologic Neurologic: no loss of consciousness, no weakness, no numbness, no seizures, no dizziness, no headaches Psychiatric Psych: no depression, feeling safe in relationship, no alcohol abuse, Hematologic/Lymphatic Hematologic/Lymphatic no swollen glands, no bruising Physical Exam: Constitutional General Appearance: well-nourished, well-developed, appears stated age Level of Distress: comfortable Psychiatric Mental Status: alert, normal affect Orientation: oriented to time, place, and person Insight: good judgement Eyes Lids and Conjunctivae: non-injected, no xanthelasma ENMT Ears: no lesions on external ear Nose: no lesions on external nose Oropharynx: no cyanosis, no pallor Neck Neck: supple, trachea midline Carotid Arteries: bilateral normal upstroke, no bruits Jugular Veins: normal jugular venous pressure Thyroid: not enlarged Lungs Respiratory Effort: unlabored Chest Exam: normal curvature, no thoracic deformity Auscultation: clear, no wheezing, no rales, no rhonchi Cardiovascu (more content not included)...[facility] 07-01-2022 Evaluation note* Encounter Date Diagnosis Assessment Notes Treatment Notes Treatment Clinical Notes Jun, Medicare annual wellness visit, subsequent (ICD-10 - Z00.00) Personalized health advice was given to the beneficiary including a written plan for screenings discussed and provided. Advanced care planning reviewed and/or information given as requested. Document reviewed and amended by provider signed below. Jun, Hyperlipidemia (ICD-10 - E78.5) Chronic problem overdue for labs Jun, Atrial fibrillation (ICD-10 - I48.91) Agrees to cardiology referral. Check EKG today Jun, Hypothyroidism (acquired) (ICD-10 - E03.9) Overdue for labs-chronic problem Jun, Essential hypertension (ICD-10 - I10) chronic problem Jun, CONNOR (obstructive sleep apnea) (ICD-10 - G47.33) Handwrote order for Sleep study retitration and consultation with [place] [facility]. Jun, Pain in right foot (ICD-10 - M79.671) Jun, Pain in left foot (ICD-10 - M79.672) Jun, Allergic rhinitis, unspecified seasonality, unspecified trigger (ICD-10 - J30.9) [employer] Other 04-27-2021 Telephone encounter Note* Telephone Encounter - Leonora Saunders - 09/18/2020 9:16 AM EDT Amiodarone was discontinued, last notes states the patient moved and has established care elsewhere. [id number] Miscellaneous Notes* Telephone Encounter - Leonora Saunders - 09/18/2020 9:16 AM EDT Amiodarone was discontinued, last notes states the patient moved and has established care elsewhere. documented in this encounterOhioHealthEvaluation note* Diagnosis PAF (paroxysmal atrial fibrillation) (HCC) Atrial fibrillation documented in this encounter [facility]No InformationNoJeff[facility] [employer] Other History general Narrative - Reported* Type Description Date Medical History Lumbar pain Medical History Atrial fibrillation Medical History Visit for suture removal Medical History Ulcerative colitis Medical History Edema of both legs Medical History Elevated fasting glucose Medical History Essential hypertension Medical History Hypothyroidism (acquired) Medical History Acid reflux disease Medical History Hyperlipidemia Surgical History FOOT SURGERY 2009 Surgical History SHOULDER SURGERY 2010 Surgical History CHOLECYSTECTOMY 2009 Surgical History APPENDECTOMY 1970 Surgical History HYSTERECTOMY 1970 Hospitalization History SEE SURGICAL HX [place] [email or web address] Other Assessments 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 use of ant iarrhythmic drug Diagnosis PAF (paroxysmal atrial fibri llation) (HCC) - Primary Atrial fibrillation [facility] current use of ant iarrhythmic drug Paroxysmal atrial fibrillati on (HCC) 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, unspecified ty pe Obesity, unspecified classif ication, unspecified obesity type, unspecified whether serious comorbidity present Diagnosis Fecal impaction (HCC) Other impaction of intestine Diagnosis PAF (paroxysmal atrial fibrillation) (HCC)- Primary Atrial fibrillation 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, unspecified type 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 No new orders. Continue class 3 f/u per protocol. * Moon Li LPN - 04/05/2018 9:41 AM EST Rec'd in the office mail basket, copy of pt's Class III labwork dated 03/04/18 for monitoring. Epic/Class III episode updated, routed to CALEB Saunders to review. (Note: lab results are in the chart, copy placed in shredder bin.) Pt currently has recall for O.V 03/2018 w/Dr. Sabino Saunders. in this encounter* Moon Li LPN - 12/01/2016 12:12 PM EDT Patient is past due for labs. Mailed to home address, reminder letter with the following post it note message: Ms. García, Our records indicate that you are past due for your Amiodarone labs. Please have your labs drawn as soon as possible. Thank you. Pt due for CXR 03/2017 Pt currently has recall for O.V 03/2017 w/Dr. Sabino Saunders Note placed on recall O.V, to schedule CXR on same day. in this encounter* Leonora Saunders MD - 01/09/2017 4:25 PM EDT Please have the patient decrease Lipitor dose to 20 mg daily labs Within normal limits. Continue class 3 f/u per protocol. * Moon Li LPN - 01/09/2017 10:52 AM EDT Rec'd from [facility] pt's Class III labwork dated 01/06/17 for monitoring, Epic/Class III episode updated, routed to CALEB Saunders to review. Pt currently has recall for an O.V 03/2017 w/Dr. Sabino Saunders. in this encounter* Moon Li LPN - 08/11/2018 11:56 AM EDT Pt past due for CXR and O.V. Scheduling req placed for pt to be scheduled for O.V/CXR. (Last O.V 04/08/17 w/Dr. Sabino Saunders). documented in this encounter* Leonora Saunders MD - 09/28/2018 9:31 AM EDT stable No new orders. Continue class 3 f/u per protocol. * aNdiya Toro MA - 09/28/2018 8:50 AM EDT Rec'd message dated 09/28/18 via in-basket from staff/Fay, per patient's chart Class III lab & CXR results dated 09/27/18. Class III episode updated, routed to /Sabino Saunders to review. Pt currently scheduled for O.V. 09/29/18 @ 2:40 w/Dr. Sabino Saunders. documented in this encounter* Leonora Saunders MD - 09/29/2018 2:38 PM EDT [facility] [address] [facility] [address] [facility] [id number] Office Visit Debra García (77 y.o. ( 1940) female) Date of service - 09/29/18 Primary healthcare providers: Nia Johnson MD (Family); Nia Johnson* (Referring)? ASSESSMENT: 1. PAF (paroxysmal atrial fibrillation) (HCC) Stable. No clinical recurrence. Continue medical management. Follow-up EP clinic 1 year. 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 Stable. Labs reviewed and are normal. Amiodarone refill provided. Continue follow-up in class III clinic. Future labs ordered. 4. 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, unspecified type Stable. Continue medical management. 5. Increased BMI Encouraged weight reduction. RECOMMENDATIONS: Patient is stable from a cardiac standpoint. Amiodarone refill provided. Follow- up EP clinic annually. Chief complaint/Reason for visit: Follow-up visit for AF management HISTORY: I had the pleasure of seeing Debra García in the arrhythmia clinic. Past history includes paroxysmal atrial fibrillation well-controlled on amiodarone, preserved EF, hypertension, obesity. Patient is done reasonably well since last visit. Patient does experience occasional fatigue which she relates to sleep apnea. She has difficulty with the sleep machine that she has and has tried other techniques that have failed. Patient denies any angina or heart failure symptoms. Has a rather sedentary lifestyle. Continues tobattle increased weight. Has noticed some mild muscle achiness which is chronic therefore cut the Lipitor dose back to 20 mg daily. I independently reviewed the following studies: ECG -normal sinus rhythm, within normal limits Document generated by [employer] voice recognition dictation system to expedite reporting. Please excuse any syntax, spelling or grammatical errors caused by [employer] dictation. Medication list reviewed on 09/29/18 2:38 PM: Current Outpatient Medications: amiodarone (CORDARONE) 200 MG tablet, TAKE ONE TABLET BY MOUTH DAILY, Disp: 90 tablet, Rfl: 1 amLODIPine (NORVASC) 10 MG tablet, Take 10 mg by mouth daily., Disp: , Rfl: aspirin 81 MG EC tablet, Take 81 mg by mouth daily., Disp: , Rfl: atorvastatin (LIPITOR) 40 MG tablet, Take 40 mg by mouth daily ., Disp: , Rfl: azaTHIOprine (IMURAN) 50 mg tablet, Take 2.5 tablets by mouth daily, Disp: , Rfl: azelastine (ASTELIN) 137 mcg (0.1 %) nasal spray, 2 sprays by Each Nare route 2 (two) times a day ., Disp: , Rfl: balsalazide (COLAZAL) 750 mg capsule, Take 750 mg by mouth 3 (three) times a day., Disp: , Rfl: buPROPion (WELLBUTRIN XL) 150 MG 24 hr tablet, Take 450 mg by mouth daily Take 3 tablets by oral route every day ., Disp: , Rfl: cholecalciferol, vitamin D3, (VITAMIN D3) 5,000 unit Tab tablet, Take 5,000 Units by mouth daily., Disp: , Rfl: cyanocobalamin (vitamin B-12) 1000 MCG tablet, Take 1,000 mcg by mouth daily., Disp: , Rfl: cycloSPORINE (RESTASIS) 0.05 % ophthalmic emulsion, Administer 1 drop to both eyes 2 (two) times a day., Disp: , Rfl: fish oil-dha-epa 1,200-144-216 mg cap, Take 1,200 mg by mouth 3 (three) times a day., Disp: , Rfl: fluticasone (FLONASE) 50 mcg/actuation nasal spray, Instill 1 spray into each nostril daily., Disp:, Rfl: KLOR-CON/EF 25 mEq disintegrating tablet, Take 25 mEq by mouth daily., Disp: , Rfl: levothyroxine (SYNTHROID, LEVOTHROID) 125 MCG tablet, Take 125 mcg by mouth once daily ., Disp: , Rfl: losartan (COZAAR) 50 MG tablet, Take 50 mg by mouth daily., Disp: , Rfl: meloxicam (MOBIC) 15 MG tablet, Take 15 mg by mouth daily., Disp: , Rfl: pantoprazole (PROTONIX) 40 MG tablet, Take 40 mg by mouth daily., Disp: , Rfl: polysaccharide iron complex (NIFEREX) 150 mg iron capsule, Take 150 mg by mouth 2 (two) times a day., Disp: , Rfl: QUEtiapine (SEROQUEL) 25 MG tablet, Take 25 mg by mouth nightly., Disp: , Rfl: traMADol (ULTRAM) 50 mg tablet, Take 50 mg by mouth 2 (two) times a day as needed for pain ., Disp:, Rfl: venlafaxine (EFFEXOR-XR) 75 MG 24 hr capsule, Take 225 mg by mouth daily ., Disp: , Rfl: VIT A/VIT C/VIT E/ZINC/COPPER (ICAPS AREDS ORAL), Take 2 capsules by mouth daily., Disp: , Rfl: amiodarone (CORDARONE) 200 MG tablet, Take 1 (one) tablet (200 mg total) by mouth daily., Disp: 14 tablet, Rfl: 0 amiodarone (CORDARONE) 200 MG tablet, TAKE 1 TABLET DAILY, Disp: 90 tablet, Rfl: 1 amiodarone (CORDARONE) 200 MG tablet, TAKE 1 TABLET DAILY, Disp: 90 tablet, Rfl: 1 mesalamine (CANASA) 1000 MG suppository, Insert 1,000 mg into the rectum nightly., Disp: , Rfl: Allergies Allergen Reactions Adhesive Paper Tape is ok Sulfa (Sulfonamide Antibiotics) Hives Past Medical History: Diagnosis Date Arrhythmia Afib Arthritis C. difficile colitis Depressed Diabetes (HCC) Edema GERD (gastroesophageal reflux disease) HTN (hypertension) Hyperlipemia Macular degeneration TIA (transient ischemic attack) Valvular heart disease MR Past Surgical History: Procedure Laterality Date ABLATION OF DYSRHYTHMIC FOCUS 11/19/2001 CARDIOVERSION 05/01/2008 Uncomplicated DC cardioversion of atrial fibrillation (200 joules CATARACT EXT/ECCE Left CATARACT EXT/ECCE Right CHOLECYSTECTOMY CYST REMOVAL removed from back HYSTERECTOMY ROTATOR CUFF REPAIR Left Family History Problem Relation Age of Onset Valvular heart disease Father Kidney disease Father No Known Problems Mother No Known Problems Sister No Known Problems Brother No Known Problems Maternal Grandmother No Known Problems Maternal Grandfather No Known Problems Paternal Grandmother No Known Problems Paternal Grandfather Social History Tobacco Use Smoking status: Former Smoker Last attempt to quit: 05/25/1969 Years since quittin.3 Smokeless tobacco: Never Used Substance Use Topics Alcohol use: No Drug use: No Review of Systems: The following system(s) were reviewed. Pertinent positive and negative findings are noted in the HPI. Constitution: Appropriate for age. No acute distress HENT: No new eye or ear complaints. Cardiovascular: No angina. No syncope. No edema. Respiratory: Denies acute dyspnea or cough Endocrine: No heat or cold intolerance. Skin: No concerns. Musculoskeletal: Appropriate for age, no acute MSK pain. Gastrointestinal: Denies acute hematochezia, melena, abdominal bloating Neurological: Denies acute neuro defecits Psychiatric/Behavioral: no acute concerns. Hematologic - Denies acute bleeding problems Thromboembolic Signs/Symptoms: No acute problems. Bleeding signs/symptoms: No acute problems Vitals: Vitals: 09/29/18 1407 BP: 122/73 BP Location: Right arm Pulse: 63 Weight: 85.3 kg (188 lb) Height: 5' 4 PHYSICAL EXAM: Constitution: No apparent distress. Alert. ENT: within normal limits. Oropharynx - normal; Moist membranes. Normal appearance ears and nose. Head: Normocephalic. Eyes: Pupils are equal, round, and reactive to light. No scleral icterus. Conjunctive-normal. Eyelids normal. Neck: Neck supple. No thyromegaly or masses. JVP - within normal limits. Cardiovascular: RRR. Palpation - PMI unremarkable. Ascultation - Normal heart sounds. Carotid pulses symmetric. Pedal pulses symmetric. Extremities: No edema. Pulses- symmetric. Pulmonary/Chest: normal respiratory effort. Breath sounds are normal. Normal palpitation of chest. No acute problems. Abdominal: Soft. Bowel sounds are normal. No acute findings. Neurological: Cranial nerves - within normal limits. Deep tendon reflexes - within normal limits for age. No acute findings. Skin: Skin is warm. Normal turgor Musculoskeletal: Gait - within normal limits for age. No joint swelling Psychiatric: Mood and affect - normal, age appropriate. Cooperative. No acute problems. Relevant Labs: Lab Results Component Value Date GLUCOSE 117 (H) 07/02/2018 NA 142 07/02/2018 K 4.3 07/02/2018 CL 103 07/02/2018 BUN 24 07/02/2018 CREATININE 1.12 07/02/2018 Lab Results Component Value Date WBC 7.92 07/02/2018 HGB 12.6 07/02/2018 HCT 38.0 07/02/2018 MCV 97.7 07/02/2018 PLT 216 07/02/2018 RBC 3.89 (L) 07/02/2018 @LASTBNP@ @LASTINR@ No results found for: CKTOTAL, CKMB, HSCRP, TROPONINI Amount/Complexity of Data: (pertinent results listed in HPI). -Clinical lab tests reviewed on 09/29/18 2:38 PM -Tests in Radiology section of CPT reviewed on 09/29/18 2:38 PM -Tests in medicine section of CPT reviewed on 09/29/18 2:38 PM -Old records (EMR/ outside) were reviewed on 09/29/18 2:38 PM - Medications reviewed on 09/29/18 2:38 PM -Transcriptions reviewed on 09/29/18 2:38 PM Leonora Saunders MD, [facility], [facility]. Cardiac Electrophysiology, Cardiovascular Disease. [facility]. documented in this encounter* Nadiya Toro MA - 09/28/2018 5:13 PM EDT On 09/28/18 /Sabino Saunders reviewed patient's lab results dated 09/27/18. See closed Class III episode for MD documentation. documented in this encounter* Mono Li LPN - 03/07/2019 12:21 PM EDT Per conversation with staff/Jess Lauren, she placed Amio lab orders in the pt chart, pt would like to have labs drawn early. documented in this encounter* Moon Li LPN - 04/19/2019 4:45 PM EST Per pt's chart Class III labwork dated 03/09/19 for monitoring. Epic/Class III episode updated. Perresults page Dr. Sabino Saunders reviewed on 03/09/19. Pt currently has a recall for an O.V 09/2019 w/Dr. Sabino Saunders. documented in this encounter* Moon Li LPN - 09/06/2019 8:36 AM EDT Pt is due for labs, reminder letter mailed with a list of [facility] lab facilities with a note instructing pt to call the facility prior to going to make sure it is open. documented in this encounter* Shelia Beckett PharmD - 01/13/2020 12:38 PM EDT Several attempts to call patient and Candice Barnett RN, was able to connect with her today and instructed patient of [facility]'s recs. See telephone encounter dated 01/12/20. * Leonora Saunders MD - 01/12/2020 4:20 PM EDT Shelia in addition to dose reduction and follow-up chest x-ray/thyroid function studies mentioned inmy previous note, I recommend a referral to Dr. Jewel Perrin (pulmonary) to get his opinion regarding this chest x-ray abnormality. Thanks, let me know the outcome. * Leonora Saunders MD - 01/09/2020 8:41 PM EDT Please decrease amiodarone to 100 mg daily. Repeat chest x-ray and TSH in 4-6 weeks The patient is relocating care closer to home, please find out where she wants testing and follow up done Thank you * Shelia Beckett PharmD - 01/09/2020 8:45 AM EDT Debralove García obtained amiodarone monitoring labs per protocol. Results below. Current amiodarone dose: 200 mg daily Lab Summary: Lab Results Component Value Date AST 23 01/06/2020 AST 20 03/09/2019 AST 18 09/27/2018 ALT 17 01/06/2020 ALT 14 03/09/2019 ALT 17 09/27/2018 TSH 5.59 (H) 01/06/2020 TSH 2.99 03/09/2019 TSH 1.76 09/27/2018 FREET4 1.4 01/06/2020 FREET4 1.7 03/04/2018 FREET4 1.5 04/08/2017 Last EKG 01/06/20 Last CXR 01/06/20 LFTs stable, TSH minimally elevated with normal FT4. CXR result: FINDINGS: PA and lateral chest radiograph. The cardiomediastinal contour is within normal limits. Calcified aortic knob. There is a moderate-sized hiatal hernia with air- fluid level. Reticular opacities in theright lower lung zone appears new from the prior study of Sep, 2018. 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 There is at least moderate compression deformity of T12 vertebral body. Suture anchor is projecting over the right humeral head. Cholecystectomy clips are seen in the right upper quadrant. Large amount of stool burden. No pleural effusion. No pneumothorax. There is persistent elevation of the right hemidiaphragm. IMPRESSION: Interval development of mild reticular opacities in the right lower lung zone, suggestive of mild basilar fibrosis. Will route to SDN for final comment given CXR findings as well as elevated TSH. documented in this encounter* Moon Li LPN - 07/05/2018 1:00 PM EST Pt due for CXR, order placed in chart. in this encounter* Moon Li LPN - 04/09/2018 9:16 AM EST On 04/08/18 /Sabino Saunders reviewed patient's lab results dated 03/04/18. See closed Class III episode for MD documentation. in this encounter* Leonora Saunders MD - 01/06/2020 10:40 AM EDT [facility] [address] [facility] [address] [facility] [address] [facility] [id number] Cardiac Electrophysiology Clinic Office Visit Debra García (79 y.o. ( 1940) female) Date of service - 01/06/20 Primary healthcare providers: Nia Johnson MD (Family); No ref. provider found (Referring)? ASSESSMENT: 1. PAF (paroxysmal atrial fibrillation) (HCC) Stable. No clinical recurrence. Continue medical management. 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 Stable. Continue follow-up in class III clinic. 4. 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, unspecified type Stable. Continue medical management. RECOMMENDATIONS: Patient is stable from a cardiac standpoint. Chest x-ray done today looks unremarkable. TSH and liver function studies will be drawn today, results are pending. Patient believes she is up-to-date on refills. Patient states that she has moved to [facility] and plans on transitioning all of her cardiovascular care to her new location. Patient states she is going to make this move soon. Therefore nospecific follow-up will be set up with us. Patient is to contact us if she has any further questions. We will be happy to see the patient back in EP clinic on a as needed basis. chief complaint/Reason for visit: Follow-up visit for AF management HISTORY: I had the pleasure of seeing Debra García in the arrhythmia clinic. Past history includes paroxysmal atrial fibrillation well-controlled on amiodarone, preserved EF, hypertension, obesity. Patient has done extremely well since last visit. No palpitations or tachycardia. Compliant with medication. No symptoms of angina or heart failure. No significant effort intolerance. I independently reviewed the following studies: ECG -normal sinus rhythm. No acute changes. Document generated by [employer] recognition dictation system to expedite reporting. Please excuse any syntax, spelling or grammatical errors caused by [employer] dictation. Medication list reviewed on 01/06/20 10:40 AM: Current Outpatient Medications: amiodarone (CORDARONE) 200 MG tablet, TAKE 1 TABLET DAILY, Disp: 90 tablet, Rfl: 3 amLODIPine (NORVASC) 10 MG tablet, Take 10 mg by mouth daily., Disp: , Rfl: atorvastatin (LIPITOR) 40 MG tablet, Take 20 mg by mouth daily Take 1/2 tablet (20mg) by mouth daily ., Disp: , Rfl: azaTHIOprine (IMURAN) 50 mg tablet, Take 2.5 tablets by mouth daily, Disp: , Rfl: balsalazide (COLAZAL) 750 mg capsule, Take 750 mg by mouth 3 (three) times a day., Disp: , Rfl: buPROPion (WELLBUTRIN XL) 150 MG 24 hr tablet, Take 450 mg by mouth daily Take 3 tablets by oral route every day ., Disp: , Rfl: cholecalciferol, vitamin D3, (VITAMIN D3) 5,000 unit Tab tablet, Take 5,000 Units by mouth daily., Disp: , Rfl: cyanocobalamin (vitamin B-12) 1000 MCG tablet, Take 1,000 mcg by mouth daily., Disp: , Rfl: cycloSPORINE (RESTASIS) 0.05 % ophthalmic emulsion, Administer 1 drop to both eyes 2 (two) times a day., Disp: , Rfl: fish oil-dha-epa 1,200-144-216 mg cap, Take 1,200 mg by mouth 3 (three) times a day., Disp: , Rfl: fluticasone (FLONASE) 50 mcg/actuation nasal spray, Instill 1 spray into each nostril daily., Disp:, Rfl: KLOR-CON/EF 25 mEq disintegrating tablet, Take 25 mEq by mouth daily., Disp: , Rfl: losartan (COZAAR) 50 MG tablet, Take 50 mg by mouth daily., Disp: , Rfl: Synthroid 100 mcg tablet, Take 1 capsule by mouth daily ., Disp: , Rfl: traMADol (ULTRAM) 50 mg tablet, Take 50 mg by mouth 2 (two) times a day as needed for pain ., Disp:, Rfl: venlafaxine (EFFEXOR-XR) 75 MG 24 hr capsule, Take 225 mg by mouth daily ., Disp: , Rfl: VIT A/VIT C/VIT E/ZINC/COPPER (ICAPS AREDS ORAL), Take 2 capsules by mouth daily., Disp: , Rfl: amiodarone (CORDARONE) 200 MG tablet, Take 1 (one) tablet (200 mg total) by mouth daily . (Patient not taking: Reported on 01/06/2020 .), Disp: 30 tablet, Rfl: 0 aspirin 81 MG EC tablet, Take 81 mg by mouth daily., Disp: , Rfl: azelastine (ASTELIN) 137 mcg (0.1 %) nasal spray, 2 sprays by Each Nare route 2 (two) times a day ., Disp: , Rfl: levothyroxine (SYNTHROID, LEVOTHROID) 125 MCG tablet, Take 125 mcg by mouth once daily ., Disp: , Rfl: meloxicam (MOBIC) 15 MG tablet, Take 15 mg by mouth daily., Disp: , Rfl: mesalamine (CANASA) 1000 MG suppository, Insert 1,000 mg into the rectum nightly., Disp: , Rfl: pantoprazole (PROTONIX) 40 MG tablet, Take 40 mg by mouth daily., Disp: , Rfl: polysaccharide iron complex (NIFEREX) 150 mg iron capsule, Take 150 mg by mouth 2 (two) times a day., Disp: , Rfl: QUEtiapine (SEROQUEL) 25 MG tablet, Take 25 mg by mouth nightly., Disp: , Rfl: Allergies Allergen Reactions Adhesive Paper Tape is ok Sulfa (Sulfonamide Antibiotics) Hives Past Medical History: Diagnosis Date Arrhythmia Afib Arthritis C. difficile colitis Depressed Diabetes (HCC) Edema GERD (gastroesophageal reflux disease) HTN (hypertension) Hyperlipemia Macular degeneration TIA (transient ischemic attack) Valvular heart disease MR Past Surgical History: Procedure Laterality Date ABLATION OF DYSRHYTHMIC FOCUS 11/19/2001 CARDIOVERSION 05/01/2008 Uncomplicated DC cardioversion of atrial fibrillation (200 joules CATARACT EXT/ECCE Left CATARACT EXT/ECCE Right CHOLECYSTECTOMY CYST REMOVAL removed from back HYSTERECTOMY ROTATOR CUFF REPAIR Left Family History Problem Relation Age of Onset Valvular heart disease Father Kidney disease Father No Known Problems Mother No Known Problems Sister No Known Problems Brother No Known Problems Maternal Grandmother No Known Problems Maternal Grandfather No Known Problems Paternal Grandmother No Known Problems Paternal Grandfather Social History Tobacco Use Smoking status: Former Smoker Last attempt to quit: 05/25/1969 Years since quittin.6 Smokeless tobacco: Never Used Substance Use Topics Alcohol use: No Drug use: No Review of Systems: The following system(s) were reviewed (systems that were reviewed are designated by X ). Pertinentpositive and negative findings are noted in the HPI. [X] Const [X] Eyes [X] ENT [X] Resp [X] CV [X] GI [ ] [X] Neuro [X] Musc [X] Skin [X] Psych [X] Endo [ ] Allergy [X] Heme/Lymph Vitals: Vitals: 01/06/20 1018 BP: 116/68 BP Location: Right arm Patient Position: Sitting BP Cuff Size: Adult Pulse: (!) 57 Weight: 72.7 kg (160 lb 3.2 oz) Height: 5' 4 PHYSICAL EXAM: Constitution: No apparent distress. Alert. ENT: within normal limits. Oropharynx - normal; Moist membranes. Normal appearance ears and nose. Head: Normocephalic. Eyes: Pupils are equal, round, and reactive to light. No scleral icterus. Conjunctive-normal. Eyelids normal. Neck: Neck supple. No thyromegaly or masses. JVP - within normal limits. Cardiovascular: regular rate and rhythm. Palpation - PMI unremarkable. Carotid pulses symmetric. Pedal pulses symmetric. Extremities: no edema. Pulses- symmetric. Pulmonary/Chest: normal respiratory effort. Breath sounds are normal. Normal palpitation of chest. No acute problems. Abdominal: Soft. Bowel sounds are normal. No acute findings. Neurological: Cranial nerves - within normal limits. Deep tendon reflexes - within normal limits for age. No acute findings. Skin: Skin is warm. Normal turgor Musculoskeletal: Gait - normal for age. No joint swelling Psychiatric: Mood and affect - normal, age appropriate. Cooperative. No acute problems. Relevant Labs: Lab Results Component Value Date GLUCOSE 117 (H) 07/02/2018 NA 142 07/02/2018 K 4.3 07/02/2018 CL 103 07/02/2018 BUN 24 07/02/2018 CREATININE 1.12 07/02/2018 Lab Results Component Value Date WBC 7.92 07/02/2018 HGB 12.6 07/02/2018 HCT 38.0 07/02/2018 MCV 97.7 07/02/2018 PLT 216 07/02/2018 RBC 3.89 (L) 07/02/2018 @LASTBNP@ @LASTINR@ No results found for: CKTOTAL, CKMB, HSCRP, TROPONINI Amount/Complexity of Data: (pertinent results listed in HPI). -Clinical lab tests reviewed on 01/06/20 10:40 AM -Tests in Radiology section of CPT reviewed on 01/06/20 10:40 AM -Tests in medicine section of CPT reviewed on 01/06/20 10:40 AM -Old records ([facility]/ outside) were reviewed on 01/06/20 10:40 AM - Medications reviewed on 01/06/20 10:40 AM -Transcriptions reviewed on 01/06/20 10:40 AM Leonora Saunders MD, [facility], [facility]. Cardiac Electrophysiology, Cardiovascular Disease. [facility]. documented in this encounter Discharge Instructions * Discharge Instr - IP PHARMACY* Melanie De Los Santos CPhT - 07/02/2018 6:54 AM EST There may be medications on your list that you were prescribed or previously taking but you said you are no longer taking. These medications may still be important for your health. Please discuss these with the person who prescribed the medication(s) to you. * Attachments The following attachments cannot be sent through Care Everywhere. 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 No records here from [place] [facility]. Diagnosis 1 Atrial fibrillation (I48.91) Referral Organization [facility] Referring Provider First Name Boyd Referring Provider Last Name Dianna Referring Provider Specialty Family Medi cine Referred Organization Unknown Facility Referred Provider Carl Kuhn Referred Provider Specialty Cardiology Referral Priority Routine Referral Appointment Date 2022-08-15 General Notes Cinthia Jacobson 10:24:39 AM >received today, no notes to send with referral. I called patient and left detailed message to see if she can provide me the doctors name she [place]. 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 Reason *FU 07/30 CALL [facility] - callouses and pain Diagnosis 1 Pain in right foot ( M79.671) Referral Organization [facility] Referring Provider First Name Boyd Referring Provider Last Name Dianna Referring Provider Specialty Family [facility] cine Referred Organization [facility] Referred Provider Uziel Camarena Referred Address ,[place], [place],[address] Referred Provider Specialty Podiatry - S urgical Chiropody Referral Priority Routine General Notes Cinthia Jacobson 10:46:32 AM >received today, attachments made, notes locked, and referral faxed Cinthia Jacobson 07/09/2022 06:48:57 AM >faxed first attempt letter Cinthia Jacobson 07/16/2022 08:32:45 AM >faxed second attempt letter Cinthia Jacobson 07/23/2022 09:30:19 AM >faxed third attempt letter. will call next Clinical Notes [id number] Summary Purpose Family History No Family History Records FoundNo Family History Records FoundNo Family History Records FoundNo Family History Records FoundNo Family History Records FoundNo Family History Records Found Additional Source Comments Reason for Visit (unrecogniz ed section and content) Reason Comments Constipation Status Reason Specialty Diagnoses / Procedures Referre d By Contact Referred To Contact Reason Comments Follow-up [facility] Reason Comments Labs Only amio lbs Reason Comments Annual Exam Reason Comments Medication Refill Mable Carrasquillo LISW - 07/02/2018 8:21 AM EST Consult Notes (unrecognized section and content) Associated Order(s): ED 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 Pt reports she has some jordan with her but does not think she has enough to cover cost of cab, left credit cards at home. Pass provided and pt taken to [facility]. Discharge Readiness Expected Discharge Date: 07/02/18 [facility] Disposition D/C Disposition: Home Agency/Destination: Home Transportation Type: Cab(pass) Options Reviewed: List provided, Possible expense, Explained services/benefits Reason for Choice: Patient/Family prefernce in this encounter Nik Skelton RN - 07/02/2018 7:07 AM Nik Ruiz RN - 07/02/2018 6:46 AM Nik Ruiz RN - 07/02/2018 6:35 AM Nik Ruiz RN - 07/02/2018 6:20 AM EST ED Notes (unrecognized secti on and content) Patient is resting comfortably. Call light within reach. Patient updated on continued plan of care. Breakfast menu sent to nutritional services for Pt. Pt to Xray. Pt passes ~5.5 formed solid brown stool ~1.5 in circumference. Pt states slight relief after BM, but not full relief. Pt states she believes there is still much more up there . 2 Soap suds enema bags completed without success of BM. Pt on bedside commode while this RN changes bed linens and prepares for another attempt. This RN at bedside with physician for rectal exam. Dr. Snell attempts to disimpact stool physician notes on physical exam. Pt tolerates poorly and is screaming in room. 3 small pebble formed stool removed by physician. Physician at bedside. Per EMS: Pt states Bowel obstruction x 3 days and constipation that she did not notice until a few hours ago , abdominal pain, takes Tramadol home medications for back pain. Hx of UC. 120/92, 76, 18, 100% RA, B Bed: 55 Expected date: 07/02/18 Expected time: 5:22 AM Means of arrival: Comments: Medic 61/bowel obstruction/dr. Snell in this encounter Quick Note - Criss Bone CNP - 07/02/2018 8:07 AM EST Miscellaneous Notes (unrecog nized section and content) Reviewed chart and discussed pt's condition with ROBBIE Davis. Per RN, pt is feeling significantly better following BM in ED. She has no other complaints at this time and is agreeable with plan for discharge without admission. Discussed this plan with Dr. Crowell who will d/c pt from ED. in this encounter INFORMATION SOURCE (unrecogn ized section and content) DATE CREATED AUTHOR 10/16/2018 [facility] DATE CREATED AUTHOR AUTHOR'S ORGANIZ ATION 03/25/2019 [facility] DATE CREATED AUTHOR AUTHOR'S ORGANIZ ATION 02/07/2020 [facility] DATE CREATED AUTHOR AUTHOR'S ORGANIZ ATION 02/07/2020 [facility] DATE CREATED AUTHOR AUTHOR'S ORGANIZ ATION 10/01/2022 [facility] DATE CREATED AUTHOR AUTHOR'S ORGANIZ ATION 05/26/2023 [facility] Care Teams (unrecognized sec tion and content) 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 This clinical summary was aggregated from multiple sources. Caution should be exercised in using it in the provision of clinical care. This summary normalizes information from multiple sources, and as a consequence, information in this document may materially change the coding, format and clinical context of patient data. In addition, data may be omitted in some cases. CLINICAL DECISIONS SHOULD BE BASED ON THE PRIMARY CLINICAL RECORDS. [email or web address] [facility]. provides no warranty or guarantee of the accuracy or completeness of information in this document.
--- NOTE | 2023-06-15 13:44 | CA_ITS ---
Patient Name: MAUREEN GARCÍA MR#: [id number] : 1940 Exam Date: 06/15/2023 Ordering Doctor: GRACIA PENA ECHOCARDIOGRAM REPORT PROCEDURE: CA ECHO LIMITED INDICATIONS: Heart failure with reduced ejection fraction, atrial fibrillation, pacemaker COMPARISON: None. DESCRIPTION: Limited ECHOCARDIOGRAM Real-time transthoracic echocardiography with 2D and M-mode performed. QUALITY: Technical quality was good. 64 , 158#, BSA 1.77 m2 Limited echocardiogram per physician order. LEFT VENTRICLE: Normal left ventricular wall thickness. LV EF: Global left ventricular systolic function is difficult to assess but appears mildly reduced; visually estimated ejection fraction is 45 to 50%. Unable to assess wall motion abnormalities; consider contrast study for better delineation of endocardial borders. LEFT ATRIUM: Moderately enlarged. RIGHT ATRIUM: Normal chamber size. RIGHT VENTRICLE: Normal chamber size. Pacer wire present. TRICUSPID VALVE: Normal mobility and thickness. MITRAL VALVE: Mildly thickened with normal mobility. Moderate mitral annular calcification. AORTIC VALVE: Normal trileaflet appearance. Moderately calcified aortic valve. AORTIC ROOT: Normal diameter and appearance. PULMONIC VALVE: Normal thickness and mobility. PERICARDIUM: No evidence of pericardial effusion. IVC: Collapses with inspirations. IVC is normal in size. CONCLUSION: 1. Global left ventricular systolic function is difficult to assess but appears mildly reduced; visually estimated ejection fraction is 45 to 50% 2. The left atrium is moderately enlarged 3. The right ventricle appears normal in size and systolic function A limited echocardiogram was performed Adult Echocardiography Procedure Report Left Ventricle LVEDD (3.7 - 5.6 cm): 4.21 cm LVESD (2.2 - 4.0 cm): 3.12 cm LVIVS thickness (0.6 - 1.2 cm): 1.13 cm LVPW thickness (0.5 - 1.0 cm): 1.05 cm LVOT Diameter 2.14 cm Left Ventricular Ejection Fraction: 44.29 % Left Atrium LA Volume Index (2D A2C): 35.63 ml/m2 Left Atrium Systolic Dimension: 3.86 cm Mitral Valve Right Ventricle Aorta AO Root Diam: 2.82 cm Ascending Ao Diam: 2.01 cm Aortic Valve Tricuspid Valve Pulmonic Valve Right Atrium Right Atrium Systolic Pressure: 39.38 ml, 39.38 ml Dictated by: Carl Kuhn M.D. on 06/16/2023 at 10:15 Approved by: Carl Kuhn M.D. on 06/16/2023 at 10:19
== END 2023-06-15 13:08 | disposition home or self-care (01) ==
LOC: CARD 13:08
PROVIDERS: PCP Family Medicine; Visit Provider Nurse Practitioner
DX: I50.23 Acute on chronic systolic (congestive) heart failure (principal)
CPT/HCPCS: 93308

== ENCOUNTER 2023-07-17 14:40 | Outpatient (OUT) | payer MEDICARE, SELFPAY ==
--- OUTSIDE RECORDS SUMMARY | 2023-07-17 14:50 | XMS_ITS | CCD ---
Author Name Unknown Address [address] [place] [address] Organization [facility] Care Team Providers Care Valve Steamer Name Role Phone Nia Johnson Unavailable Leonora Saunders Unavailable Unavailabl e Unavailable Primary Care Provider Nia Brito Primary Care Provider Leonora Saunders Unavailable [phone] Nia Johnson Primary Care Provider Leonora Saunders Unavailable Leonora Saunders Unavailable Nia Johnson Primary Care Provider NIA JOHNSON JORGE LUIS Primary Care Unava ilable LEONORA SAUNDERS Attending Unavailabl e LEONORA SAUNDERS Referring Unavailismael e [facility] Primary Care Unava ilable LEONORA SAUNDERS Admitting Unavailabl e LEONORA SAUNDERS Referring Unavailabl e [facility] Primary Care Unava ilable [facility] Primary Care Unava ilable LEONORA SAUNDERS Attending Unavailismael e [facility] Primary Care Unava ilable LEONORA SAUNDERS Admitting Unavailabl e LEONORA SAUNDERS Referring Unavailabl e [facility] Primary Care Unava ilable Leonora Saunders Unavailable Unavailismael Johnson MD, Nia Raya Primary Care Provi mervin Honorio SCHAEFFER, Leonora Mandel Unavailable [phone] Boyd Bustamante Unavailable DIANNA, DR BOYD Miller [...] Unavailable BUSTAMANTE, DR BOYD Miller Attending Unavailable BUSTAMANET, DR BOYD Miller Consulting Unavailable BUSTAMANTE, DR BOYD Miller Primary Care Unavailable BUSTAMANTE, DR BOYD Miller Admitting Unavailable KIMBER, PARAM Attending Unavailable BURKET, GROVER Referring Unavailable WITHERELL, ALEC Attending Unavailable KIMBER, PARAM Attending Unavailable BARAZI, GRACIA Attending Unavailable BARAZI, GRACIA Referring Unavailable KIMBER, PARAM Referring Unavailable KIMBER, PARAM Referring Unavailable SAVANNAH, JOVANNY Referring Unavailable BARAZI, GRACIA Attending Unavailable KIMBER, PARAM Attending Unavailable KIMBER, PARAM Admitting Unavailable HAY, BECKY Referring Unavailable SAVANNAH, JOVANNY Attending Unavailable SAVANNAH, JOVANNY Admitting Unavailable BURKET, GROVER Attending Unavailable BURKET, GROVER Admitting Unavailable BARAZI, GRACIA Attending Unavailable Allergies Allergy Classification Reported Allergen(s) Allergy Type Date of Onset Reaction(s) Facility (20 sources) Adhesive Tape; Translations: [Unknown] Propensity to adverse reactions to drug 5 Unknown [facility] Work Phone: (20 sources) Sulfonamides (Antibiotic); Translations: [SULFA (SULFONAMIDE ANTIBIOTICS)] Propensity to adverse reactions to drug 5 Hives [facility] Work Phone: (3 sources) amoxicillin Drug Allergy 5 [facility] Work Phone: (4 sources) Sulfonamides (Antibiotic) Propensity to adverse reactions to drug 5 [facility] (10 sources) Sulfonamides (Antibiotic) Propensity to adverse reactions Unknown [facility] Other (1 source) Sulfonamides (Antibiotic) Drug allergy (disorder) 9 [facility] Rep[facility] (3 sources) Adhesive Tape Drug allergy Unknown [facility] Other (2 sources) Allergies Reconciled Propensity to adverse reactions Unknown [facility] Other Medications Current Medications Medication Drug Class(es) [...] 90 days Active take 1 capsule by [facility] three times daily balsalazide (COLAZAL) 750 mg capsule Steve e 750 mg by mouth 3 (three) times a day. 0 Active 24 hr buPROPion hydrochloride 150 mg extended release oral tablet (20 sources) Aminoketone take 3 tablets by [facility] every twenty-four hours buPROPion HCl ER (XL) 150 MG 3 tablet Orally Once a day for 90 days Active take 1 tablet by mouth three randall es daily buPROPion HCl ER (XL) 150 MG 1 tablet Orally three times daily for 90 days Active take 1 tablet by [facility] every twenty-four hours buPROPion HCl ER (XL) [...] 04/08/2017 Discontinued take 1 tablet by troy th once daily in the morning Levothyroxine Sodium [...] fibrillation] Onset: 04-08-2017 04-08-2017 Chronic Conduction disorders (4 sources) Encounter for adjustment and management of automatic implantable cardiac defibrillator; Translations: [Unspecified atrioventricular block] Onset: 04-10-2023 Chronic [...] Unclassified (17 sources) Drug therapy finding; Translations: [salvage determiner current use of 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 drug] Onset: 04-08-2017 04-08-2017 Unclassified (10 sources) Long-term current use of drug therapy; Translations: [salvage determiner current use of 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 drug] Onset: 04-08-2017 [...] current use of drug therapy; Translations: [Other salvage determiner (current) drug therapy] Onset: 04-08-2017 04-08-2017 Episodic Results Test Name Value Interpretation Reference Range Facility Office Visiton 07-14-2023 Follow-up visit [id number] Emy García 1940 F Date Provider Department Center 07/14/2023 241-PARAM PADRON [facility] No family history on file Level of Service:05522 [place] OFFICE/OUTPATIENT ESTABLISHED LOW MDM 20 MIN Normal [facility] Office Visiton 05-26-2023 Follow-up visit [id number] Emy García 1940 F Date Provider Department Center 05/26/2023 GRACIA CHAMBERLAIN CHARY [facility] No family history on file Level of Service:37461 [place] OFFICE/OUTPATIENT ESTABLISHED MOD MDM 30 MIN Normal [facility] HPon 05-11-2023 HP History Of Present Illness Debra García is a 82 y.o. female presenting with htn, GERD, sleep apnea, mitral valve prolapse, A-fib, c-diff, TIA, HLD, it is noted in her H&P per PCP she has been on a medication for afib but it caused her thyroid issues. She had previous seen a tile mechanic helper and an outlying facility and recently moved here about 2 years ago and has not established with a tile mechanic helper. She was seen by Gracia SOSA and subsequently started on anticoagulation with Eliquis. previously she had afib ablation with [facility] before 2009 had for unclear reasons was not placed on anticoagulation when he saw her. she got admitted to [facility] on 02/06/2023 following a fall. versus [...] Dr Forrest. She has come for DCCV. [id number] at least 6 for age, gender, hypertension, [...] mcg by mouth in the morning. 05/11/2023 zgcekix-pxxv-kicma-or eg-capryl 100 mg-150 mg- 50 mg-150 mg capsule Take 1 capsule by mouth in the morning. 05/11/2023 venlafaxine XR (Effexor-XR) 75 mg 24 hr capsule Take 75 mg by mouth in the morning, at noon, and at bedtime. 05/11/2023 vit C,X-Xy-zkkeq-lutein-z eaxan (PreserVision AREDS-2) 250-90-40-1 mg capsule Take [...] no thoracic defo (more content not included)... Normal [facility] NURSNOTEon 05-11-2023 NURSNOTE RN educated pt on d/ c instructions. RN encouraged pt to voice any questions or concerns. Pt verbalizes no questions or concerns at this time. Normal [facility] NURSNOTE Bedside swallow stud y completed and passed. Normal [facility] Office Visiton 04-23-2023 Follow-up visit [id number] Emy García 1940 F Date Provider Department Center 04/23/2023 88412-KNPIZYVNIALEC JERRY CHARY [facility] No family history on file Level of Service:83521 [place] POSTOP FOLLOW UP VISIT RELATED TO ORIGINAL PX Normal [facility] 30on 04-11-2023 30 The patient is Moderately Stable - Low risk of patient condition declining or worsening The patient's goals for the shift include comfort The clinical goals for the shift include VSS Over the shift, the patient did make progress toward her goals. Normal [facility] BASIC METABOLIC PANELon 03-25 Anion gap [Moles/Vol] 12 mmol/L Normal 7-20 [facility] Comment on above: Performed By: #### L [id number] #### [facility] ([facility]) [address] [place] [address] Calcium [Mass/Vol] 9.7 mg/dL Normal 8.6-10.3 [facility] Comment on above: Performed By: #### L [id number] #### [facility] ([facility]) [address] [place] [address] Chloride [Moles/Vol] 108 mmol/L High 98-107 [facility] Comment on above: Performed By: #### L [id number] #### [facility] ([facility]) [address] [place] [address] CO2 [Moles/Vol] 23 mmol/L Normal 21-[address] [facility] Comment on above: Performed By: #### L [id number] #### [facility] ([facility]) [address] [place] [address] Creatinine [Mass/Vol] 0.92 mg/dL Normal 0.60-1.20 [facility] Comment on above: Performed By: #### L [id number] #### [facility] ([facility]) [address] [place] [address] GLOMERULAR FILTRATION RATE ML/MIN/1.73 SQ M.PREDICTED 62.2 mL/min/1.73m*2 Normal >60.0 [facility] Comment on above: Result Comment: [facility]???s estimated glomerular filtration rate (eGFR) will no [...] individuals. Performed By: #### L [id number] #### [facility] ([facility]) [address] [place] [address] Glucose [Mass/Vol] 67 mg/dL Low 70-100 [facility] Comment on above: Performed By: #### L [id number] #### [facility] ([facility]) [address] [place] [address] Potassium [Moles/Vol] 3.9 mmol/L Normal 3.5-5.1 [facility] Comment on above: Performed By: #### L [id number] #### [facility] ([facility]) [address] [place] [address] Sodium [Moles/Vol] 139 mmol/L Normal 136-145 [facility] Comment on above: Performed By: #### L [id number] #### [facility] ([facility]) [address] [place] [address] Urea nitrogen [Mass/Vol] 12 mg/dL Normal 7-25 [facility] Comment on above: Performed By: #### L [id number] #### [facility] ([facility]) [address] [place] [address] UREA NITROGEN/CREATININE (MASS RATIO) IN SER/PLAS 13.0 Normal [facility] Comment on above: Performed By: #### L [id number] #### [facility] [address] [place] [address] CBCon 04-11-2023 Erythrocyte distribution width (RBC) [Ratio] 14.8 % Normal 11.5-15.0 [facility] Comment on above: Performed By: #### L [id number] ####[facility] ([facility])[address] [place] [address] ERYTHROCYTE MEAN CORPUSCULAR HEMOGLOBIN CONCENTRATION (G/DL) BY AUTOMATED 33.3 g/dL Normal 32.0-35.0 [facility] Comment on above: Performed By: #### L [id number] ####[facility] ([facility])[address] [place] [address] Hematocrit (Bld) [Volume fraction] 40.0 % Normal 36.0-48.0 [facility] Comment on above: Performed By: #### L [id number] ####[facility] ([facility])[address] [place] [address] Hemoglobin (Bld) [Mass/Vol] 13.3 g/dL Normal 12.0-15.0 [facility] Comment on above: Performed By: #### L [id number] ####[facility] ([facility])[address] [place] [address] MCH (RBC) [Entitic mass] 31.7 pg Normal 27.0-33.0 [facility] Comment on above: Performed By: #### L [id number] ####[facility] [place] [address] MCV (RBC) [Entitic vol] 95.5 fL Normal 82.0-98.0 [facility] Comment on above: Performed By: #### L [id number] ####[facility] [place] [address] PLATELETS (10*3/UL) IN BLOOD AUTOMATED COUNT 245 10*3/uL Normal 150-400 [facility] Comment on above: Performed By: #### L [id number] ####[facility] ([facility] [place] [address] RBC (Bld) [#/Vol] 4.19 10*6/uL Normal 3.80-5.00 [facility] Comment on above: Performed By: #### L [id number] ####[facility] (BEAKER)[address] [place] [address] WBC (Bld) [#/Vol] 9.32 10*3/uL Normal 4.00-10.60 [facility] Comment on above: Performed By: #### L [id number] ####[facility] ([facility])[address] [place] [address] DSon 04-11-2023 DS - Attestation signed by [...] AREDS-2 250-90-40-1 mg capsule Generic drug: vit C,L-Vp-hhusz-lutein-z eaxan Synthroid 100 mcg tablet Generic drug: levothyroxine dlsdwff-mpiz-ssmjf-or eg-capryl 100 mg-150 mg- 50 mg-150 mg capsule venlafaxine XR 75 mg 24 hr capsule Commonly known as: Effexor-XR Vitamin D3 10 mcg (400 unit) capsule Generic drug: cholecalciferol (vitamin D3) Where to Get Your Medications These medications were sent to [facility]/pharmacy #[id number] - [address] AT CORNER OF [address] [address] apixaban 5 mg tablet Activity Patient currently [...] a buri (more content not included)... Normal [facility] POCT GLUCOSE METER UNSOLICIT ED RESULTSon 04-11-2023 Glucose [Mass/Vol] 143 mg/dL High 70-105 [facility] Comment on above: Order Comment: Waive d Testing in the ED is performed under the ED CLIA certificate #[id number]. Result Comment: [email or web address] Performed By: #### L [id number] ####[facility] ([facility])[address] [place] [address] Glucose [Mass/Vol] 81 mg/dL Normal 70-105 [facility] Comment on above: Order Comment: Waive d Testing in the ED is performed under the ED CLIA certificate #[id number]. Result Comment: [email or web address] Performed By: #### L [id number] ####[facility] ([facility])[address] [place] [address] 30on 04-10-2023 30 The patient is Moderately Stable - Low risk of patient condition declining or worsening The patient's goals for the shift include comfort The clinical goals for the shift include VSS [facility] HPon 04-10-2023 HP History Of Present Illness [...] Problem: AV block Pacemaker Jovanny Forrest MD [facility] NURSNOTEon 04-10-2023 NURSNOTE RN messaged hospitalist regarding patient admit orders and med rec, per hospitalist cardiology is primary. RN paged and received a call from Jewel, litigation manager tile mechanic helper, and was told that hospitalist was primary. RN contacted hospitalist again regarding information. Per hospitalist, they had talked to Jewel and informed him that cardiology was primary. RN told that [place] will contact [place] and place further orders. Wheat Farmer will update day team and await further orders. [facility] Orders Onlyon 04-10-2023 Orders Only [id number] JenniferEmy durand 1940 F Date Provider Department Center 04/10/2023 HERMINIA [facility] No family history on file [facility] Prep for Procedureon 11-17-2 023 Prep for Procedure [id number] Emy García esther 1940 Date Provider Department Center 04/10/2023 1485-SHAW [facility] No family history on file [facility] Follow-Upon 03-27-2023 Follow-Up [id number] Emy García esther 1940 F Date Provider Department Center 03/27/2023 1596-GRACIA FOSTER CARD [facility] No family history on file Level of Service:31949 [place] OFFICE/OUTPATIENT ESTABLISHED MOD MDM 30-39 MIN Reason for Visit and Comments: Follow-up [[id number]] [facility] ANESon 02-26-2023 ANES - Attestation signed by Grover Garcia MD at 03/02/2023 12:21 PM k Patient: Debra García Procedure Information Date/Time: 02/26/23 1030 Procedure: Coronary angiography Location: [facility] / [facility] (Cath) Providers: Grover Garcia MD Clinical information reviewed: Allergies Meds Physical Exam Airway Mallampati: II Cardiovascular Rhythm: regular Rate: normal Dental Pulmonary Abdominal Anesthesia Plan ASA 3 other (Conscious sedation.) Additional Equipment Requests Normal [facility] HPon 02-26-2023 HP H&P reviewed. The patient was examined and there are no changes to the H&P. We will proceed with coronary angiogram for newly diagnosed HFrEF with ejection fraction 35 to 40%. Normal [facility] NURSNOTEon 02-26-2023 NURSNOTE RN educated pt on d/ c instructions. RN encouraged pt to voice any questions or concerns. Pt verbalizes no questions or concerns at this time. Pt was wheeled off of unit with all of belongings. [facility] HPon 02-17-2023 [facility] Electrophysiology Consult Note Reason for visit: Afib HPI: Debra García is a 82 y.o. year old with past medical history of htn, GERD, sleep apnea, mitral valve prolapse, A-fib, c-diff, TIA, HLD, it is noted in her H&P per PCP she has been on a medication for afib but it caused her thyroid issues. She had previous seen a tile mechanic helper and an outlying facility and recently moved here about 2 years ago and has not established with a tile mechanic helper. She was seen by Gracia SOSA and subsequently started on anticoagulation with Eliquis. previously she had afib ablation with [facility] before 2009 had for unclear reasons was not placed on anticoagulation when he saw her. she got admitted to [facility] on 02/06/2023 following a fall. versus attributed to be a mechanical fall as she tripped on the corner curb. no loss of consciousness. CT of the head was negative for any hemorrhage. she had some lacerations which were sutured. She had a recent echocardiogram done which showed cardiomyopathy with a EF of 35 to 40%. [id number] at least 6 for age, gender, hypertension, [...] upstroke, n (more content not included)... Normal [facility] Office Visiton 02-17-2023 Follow-up visit [id number] Emy García 1940 F Date Provider Department Center 02/17/2023 PARAM STODDARD [facility] No family history on file Level of Service:87872 [place] OFFICE/OUTPATIENT NEW HIGH MDM 60-74 MINUTES Normal [facility] Orders Onlyon 02-17-2023 Orders Only [id number] Emy García 1940 F Date Provider Department Center 02/17/2023 KISHOR MONTESINOS CARD [facility] No family history on file Normal [facility] Office Visiton 12-03-2022 Follow-up visit [id number] Emy García 1940 F Date Provider Department Center 12/03/2022 GRACIA CHAMBERLAIN CARD [facility] No family history on file Level of Service:60803 [place] OFFICE/OUTPATIENT NEW MODERATE MDM 45-59 MINUTES Reason for Visit and Comments: Establish Care [42] Atrial Fibrillation [80] Normal [facility] BNPon 07-24-2022 Natriuretic peptide B (Bld) [Mass/Vol] 1076.0 pg/mL Normal <=1,800.0 [facility] Comment on above: Performed By: #### L IPID, TSH, BNP, CMP #### [facility] [address] [address] [address] Ana Fish CBC AUTO DIFFon 07-24-2022 BASO # 0.0 103/ul Normal 0.0-0.1 [facility] Comment on above: Performed By: #### C BC #### [facility] [address] [address] [address] Ana Fish Basophils/100 WBC (Bld) 0.4 % Normal 0.2-2.0 [facility] Comment on above: Performed By: #### C BC #### [facility] [address] [place] [address] Dr. Ana Fsih EO # 0.1 103/ul Normal 0.0-0.7 [facility] Comment on above: Performed By: #### C BC #### [facility] [address] [place] [address] Dr. Ana Fish Eosinophils/100 WBC (Bld) 1.3 % Normal 0.9-7.0 [facility] Comment on above: Performed By: #### C BC #### [facility] [address] [place] [address] Dr. Ana Fish Erythrocyte distribution width (RBC) [Ratio] 15.5 % Critically high 11.0-15.0 [facility] Comment on above: Performed By: #### C BC #### [facility] [address] [place] [address] Dr. Ana Fish Hematocrit (Bld) [Volume fraction] 37.0 % Normal 36.0-48.0 [facility] Comment on above: Performed By: #### C BC #### [facility] [address] [place] [address] Dr. Ana Fish Hemoglobin (Bld) [Mass/Vol] 12.7 g/dL Normal 12.0-16.0 [facility] Comment on above: Performed By: #### C BC #### [facility] [address] [place] [address] Dr. Ana Fish IG # 0.03 10e3/ul Normal 0.00-0.03 [facility] Comment on above: Performed By: #### C BC #### [facility] [address] [place] [address] Dr. Ana Fish IG % 0.4 % Normal 0.0-0.5 [facility] Comment on above: Performed By: #### C BC #### [facility] [address] [place] [address] Dr. Ana Fish LYMPH # 1.6 103/ul Normal 1.2-3.8 [facility] Comment on above: Performed By: #### C BC #### [facility] [address] [place] [address] Dr. Ana Fish Lymphocytes/100 WBC (Bld) 19.0 % Critically low 20.5-60.0 [facility] Comment on above: Performed By: #### C BC #### [facility] [address] [place] [address] Dr. Ana Fish MANUAL DIFF REQ NO Normal [facility] Comment on above: Performed By: #### C BC #### [facility] [address] [place] [address] Dr. Ana Fish MCH (RBC) [Entitic mass] 32.3 pg Normal 26.7-34.0 [facility] Comment on above: Performed By: #### C BC #### [facility] [address] [place] [address] Dr. Ana Fish MCHC (RBC) [Mass/Vol] 34.3 g/dL Normal 29.9-35.2 [facility] Comment on above: Performed By: #### C BC #### [facility] [address] [place] [address] Dr. Ana Fish MCV (RBC) [Entitic vol] 94.1 fL Normal 81.0-99.0 [facility] Comment on above: Performed By: #### C BC #### [facility] [address] [place] [address] Dr. Ana Fish MONO # 0.8 103/ul Normal 0.3-0.8 [facility] Comment on above: Performed By: #### C BC #### [facility] [address] [place] [address] Dr. Ana Fish Monocytes/100 WBC (Bld) 9.7 % Normal 1.7-12.0 [facility] Comment on above: Performed By: #### C BC #### [facility] [address] [place] [address] Dr. Ana Fish NEUT # 5.7 103/ul Normal 1.4-6.5 [facility] Comment on above: Performed By: #### C BC #### [facility] [address] [place] [address] Dr. Ana Fish Neutrophils/100 WBC (Bld) 69.2 % Normal 43.0-75.0 [facility] Comment on above: Performed By: #### C BC #### [facility] [address] [place] [address] Dr. Ana Fish Platelet mean volume (Bld) [Entitic vol] 9.9 fL Normal 9.5-13.5 [facility] Comment on above: Performed By: #### C BC #### [facility] [address] [place] [address] Dr. Ana Fish PLT 273 103/ul Normal 150-450 [facility] Comment on above: Performed By: #### C BC #### [facility] [address] [place] [address] Dr. Ana Fish RBC 3.93 106/ul Critically low 4.20-5.40 [facility] Comment on above: Performed By: #### C BC #### [facility] [address] [place] [address] Dr. Ana Fish WBC 8.2 103/ul Normal 4.0-11.0 [facility] Comment on above: Performed By: #### C BC #### [facility] [address] [place] [address] Dr. Ana Fish FREE T4on 07-24-2022 Free T4 [Mass/Vol] 1.34 ng/dL Normal 0.76-1.46 [facility] Comment on above: Performed By: #### F T4 #### [facility] [address] [address] [address] Ana Fish LIPID PROFILEon 07-24-2022 CHOL-HDL RATIO NORM SEE BELOW Normal [facility] Comment on above: Result Comment: 3.3 - 4.4 LOW RISK 4.4 - 7.1 AVERAGE RISK 7.1 - 11.0 MODERATE RISK >11.0 HIGH RISK Performed By: #### L IPID, TSH, BNP, CMP #### [facility] [address] [address] [address] Ana Fish Cholesterol [Mass/Vol] 199 mg/dL Normal <=200 [facility] Comment on above: Performed By: #### L IPID, TSH, BNP, CMP #### [facility] [address] [address] [address] Ana Fish Cholesterol in HDL [Mass/Vol] 88 mg/dL Critically high 40-60 [facility] Comment on above: Performed By: #### L IPID, TSH, BNP, CMP #### [facility] [address] [address] [address] Ana Fish Cholesterol in LDL [Mass/Vol] 97.6 mg/dL Normal [facility] Comment on above: Performed By: #### L IPID, TSH, BNP, CMP #### [facility] [address] [address] [address] Ana Fish Cholesterol.total/C holesterol in HDL [Mass ratio] 2.3 {ratio} Normal [facility] Comment on above: Performed By: #### L IPID, TSH, BNP, CMP #### [facility] [address] [address] [address] Ana Fish HDL NORMAL > or = 60 mg/dl - LO W CARDIOVASCULAR RISK <40 mg/dl - HIGH CARDIOVASCULAR RISK Normal [facility] Comment on above: Performed By: #### L IPID, TSH, BNP, CMP #### [facility] [address] [address] [address] Ana Fish LDL CALC NORMAL SEE BELOW Normal [facility] Comment on above: Result Comment: <100 mg/dl OPTIMAL 100 - 129 mg/dl NEAR OR ABOVE OPTIMAL 130 - 159 mg/dl BORDERLINE HIGH 160 - 189 mg/dl HIGH >190 mg/dl VERY HIGH Performed By: #### L IPID, TSH, BNP, CMP #### [facility] [address] [address] [address] Ana Fish Triglyceride [Mass/Vol] 67 mg/dL Normal <=150 [facility] Comment on above: Performed By: #### L IPID, TSH, BNP, CMP #### [facility] [address] [address] [address] Ana Fish VLDL CALC 13.4 mg/dL Normal [facility] Comment on above: Performed By: #### L IPID, TSH, BNP, CMP #### [facility] [address] [place] [address] Dr. Ana Fish PROF 14(COMP METB)on 023 Albumin [Mass/Vol] 3.8 g/dL Normal 3.4-5.0 [facility] Comment on above: Performed By: #### L IPID, TSH, BNP, CMP #### [facility] [address] [place] [address] Dr. Ana Fish Albumin/Globulin [Mass ratio] 1.3 {ratio} Normal [facility] Comment on above: Performed By: #### L IPID, TSH, BNP, CMP #### [facility] [address] [place] [address] Dr. Ana Fish ALP [Catalytic activity/Vol] 81 U/L Normal 46-116 [facility] Comment on above: Performed By: #### L IPID, TSH, BNP, CMP #### [facility] [address] [place] [address] Dr. Ana Fish ALT [Catalytic activity/Vol] 16 U/L Normal 14-59 [facility] Comment on above: Performed By: #### L IPID, TSH, BNP, CMP #### [facility] [address] [address] [address] Ana Fish Anion gap [Moles/Vol] 10.3 mmol/L Normal [facility] Comment on above: Performed By: #### L IPID, TSH, BNP, CMP #### [facility] [address] [place] [address] Dr. Ana Fish AST [Catalytic activity/Vol] 18 U/L Normal 15-37 [facility] Comment on above: Performed By: #### L IPID, TSH, BNP, CMP #### [facility] [address] [place] [address] Dr. Ana Fish Bilirubin [Mass/Vol] 0.8 mg/dL Normal 0.2-1.0 [facility] Comment on above: Performed By: #### L IPID, TSH, BNP, CMP #### [facility] [address] [place] [address] Dr. Ana Fish Calcium [Mass/Vol] 9.3 mg/dL Normal 8.5-10.1 [facility] Comment on above: Performed By: #### L IPID, TSH, BNP, CMP #### [facility] [address] [place] [address] Dr. Ana Fish Chloride [Moles/Vol] 103 mmol/L Normal 98-107 [facility] Comment on above: Performed By: #### L IPID, TSH, BNP, CMP #### [facility] [address] [place] [address] Dr. Ana Fish CO2 [Moles/Vol] 32.1 mmol/L Critically high 21.0-32.0 [facility] Comment on above: Performed By: #### L IPID, TSH, BNP, CMP #### [facility] [address] [place] [address] Dr. Ana Fish Creatinine [Mass/Vol] 0.85 mg/dL Normal 0.55-1.02 [facility] Comment on above: Performed By: #### L IPID, TSH, BNP, CMP #### [facility] [address] [place] [address] Dr. Ana Fish EGFR-AF TONGAN >60 Normal >=60 [facility] Comment on above: Performed By: #### L IPID, TSH, BNP, CMP #### [facility] [address] [address] [address] Ana Fish EGFR-NON AF TONGAN >60 Normal >=60 [facility] Comment on above: Performed By: #### L IPID, TSH, BNP, CMP #### [facility] [address] [address] [address] Ana Fish Globulin (S) [Mass/Vol] 3.0 g/dL Normal [facility] Comment on above: Performed By: #### L IPID, TSH, BNP, CMP #### [facility] [address] [address] [address] Ana Fish Glucose [Mass/Vol] 101 mg/dL Normal 74-106 [facility] Comment on above: Performed By: #### L IPID, TSH, BNP, CMP #### [facility] [address] [place] [address] Dr. Ana Fish Potassium [Moles/Vol] 3.4 mmol/L Critically low 3.5-5.1 [facility] Comment on above: Performed By: #### L IPID, TSH, BNP, CMP #### [facility] [address] [address] [address] Ana Fish Protein [Mass/Vol] 6.8 g/dL Normal 6.4-8.2 [facility] Comment on above: Performed By: #### L IPID, TSH, BNP, CMP #### [facility] [address] [address] [address] Ana Fish Sodium [Moles/Vol] 142 mmol/L Normal 136-145 [facility] Comment on above: Performed By: #### L IPID, TSH, BNP, CMP #### [facility] [address] [address] [address] Ana Fish Urea nitrogen [Mass/Vol] 12.0 mg/dL Normal 7.0-18.0 [facility] Comment on above: Performed By: #### L IPID, TSH, BNP, CMP #### [facility] [address] [address] [address] Ana Fish Urea nitrogen/Creatinine [Mass ratio] 14.1 mg/mg Normal [facility] Comment on above: Performed By: #### L IPID, TSH, BNP, CMP #### [facility] [address] [place], [place] [address] Dr. Ana Fish TSHon 07-24-2022 TSH 2.122 uIU/mL Normal 0.358-3.740 [facility] Comment on above: Performed By: #### L IPID, TSH, BNP, CMP #### [facility] [id number] Ana Fish XR CHEST AP/PA AND LATon XR CHEST AP/PA AND LAT EXAMINATION: TWO VIEW XR CHEST AP/PA AND LAT, 02/03/2020 COMPARISON: Chest, 01/06/2020. HISTORY: Dx: Z79.899 (retirement current use of 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 drug) Injury/Trauma or Illness?:Illness/Othe r How long have you had these symptoms (acute/chronic)?:Acut e Abnormal CXR IMPRESSION: 1. No acute cardiopulmonary disease. 2. Normal heart size. 3. 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 This is not significantly changed since the prior exam. 4. 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 No acute osseous abnormality. 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 History of cancer?:n Surgeries, chemotherapy, or radiation?:n Type of Exam?:Initial Additional signs and symptoms?:retirement current use of 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 drug ECG 12-LEADon 01-06-2020 Atrial Rate [facility] P-R Interval [facility] Q-T Interval [facility] Q-T Interval (corrected) [facility] QRS Duration [facility] QTC Calculation (Bezet) [facility] R [place] [facility] T [place] [facility] Ventricular Rate [facility] th XR CHEST AP/PA AND LATon Interval development of mild reticular opacities in the right lower lung zone, suggestive of mild basilar fibrosis. Moderate compression deformity of T12 vertebral body. This is age indeterminate. Recommend further evaluation with cross-sectional imaging. 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 [facility] Interface, Rad In [employer] Speech[employer] - 01/06/2020 7:58 PM EDT EXAMINATION: XR CHEST AP/PA AND LAT 01/06/2020 9:41 am HISTORY: ORDERING SYSTEM PROVIDED HISTORY: Amiodarone surveillance, TECHNOLOGIST PROVIDED HISTORY: Illness/Other Reason for exam: Amiodarone surveillance Cancer History: n Surgery, RadiationHistory: n Encounter Type: Initial Additional signs and symptoms: ORDERING SYSTEM PROVIDED DIAGNOSIS CODES: Z79.899 retirement current use of 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 drug I48.0 PAF [...] indeterminate. Recommend further evaluation with cross-sectional imaging. [employer] Workstation ID: [id number] [facility] XR CHEST AP/PA AND LAT EXAMINATION: XR CHEST AP/PA AND LAT 01/06/2020 9:41 am HISTORY: ORDERING SYSTEM PROVIDED HISTORY: Amiodarone surveillance, TECHNOLOGIST PROVIDED HISTORY: Illness/Other Reason for exam: Amiodarone surveillance Cancer History: n Surgery, RadiationHistory: n Encounter Type: Initial Additional signs and symptoms: ORDERING SYSTEM PROVIDED DIAGNOSIS CODES: Z79.899 retirement current use of 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 drug I48.0 PAF [...] indeterminate. Recommend further evaluation with cross-sectional imaging. [employer] Workstation ID: [id number] Dictated by: ARNOLDO HOUGH on ThuJan 06, 2020 4:42:45 PM EDT Transcribed by: RIAZ MURRAY on ThuJan 06, 2020 5:12:15 PM EDT Finalized by: ARNOLDO HOUGH on ThuJan 06, 2020 7:55:51 PM EDT Normal [facility] Comment on above: Order Comment: Injur y/Trauma or Illness?:Illness/Other How long have you had these symptoms (acute/chronic)?:Unknown Reason for exam?:Amiodarone surveillance History of cancer?:n Surgeries, chemotherapy, or radiation?:n Type of Exam?:Initial Additional signs and symptoms?: Basic Metabolic Panelon 10-3 Anion gap [Moles/Vol] 9.00 mmol/L Normal 8.00-16.00 [facility] Comment on above: Order Comment: Fasti ng: Unknown Performed By: #### C 80, C400, C408, C141, C48, C45, C119, C120 #### [facility] [address] [place] [address] B/C Ratio 15.0 Ratio Normal [facility] Comment on above: Order Comment: Fasti ng: Unknown Performed By: #### C 80, C400, C408, C141, C48, C45, C119, C120 #### [facility] [address] [place] [address] Calcium [Mass/Vol] 10.2 mg/dL Normal 8.5-10.5 [facility] Comment on above: Order Comment: Fasti ng: Unknown Performed By: #### C 80, C400, C408, C141, C48, C45, C119, C120 #### [facility] [address] [place] [address] Chloride [Moles/Vol] 101 mmol/L Normal 98-107 [facility] Comment on above: Order Comment: Fasti ng: Unknown Performed By: #### C 80, C400, C408, C141, C48, C45, C119, C120 #### [facility] [address] [place] [address] CO2 [Moles/Vol] 30.0 mmol/L Normal 22.0-30.0 [facility] Comment on above: Order Comment: Fasti ng: Unknown Performed By: #### C 80, C400, C408, C141, C48, C45, C119, C120 #### [facility] [address] [place] [address] Creatinine [Mass/Vol] 1.0 mg/dL Normal 0.1-1.2 [facility] Comment on above: Order Comment: Fasti ng: Unknown Performed By: #### C 80, C400, C408, C141, C48, C45, C119, C120 #### [facility] [address] [place] [address] [place] [address] GFR/1.73 sq M.predicted MDRD (S/P/Bld) [Vol rate/Area] 54 mL/min per 1.73 Low >60 [facility] Comment on above: Order Comment: Fasti ng: Unknown Result Comment: The GFR estimate is not adjusted for race. If the patient's race is -Guamanian, the GFR estimate must be multiplied by a factor of 1.21. Performed By: #### C 80, C400, C408, C141, C48, C45, C119, C120 #### [facility] [address] [place] [address] [address] [place] [address] Glucose [Mass/Vol] 91 mg/dL Normal 74-100 [facility] Comment on above: Order Comment: Fasti ng: Unknown Performed By: #### C 80, C400, C408, C141, C48, C45, C119, C120 #### [facility] [place] [address] Potassium [Moles/Vol] 3.9 mmol/L Normal 3.5-5.3 [facility] Comment on above: Order Comment: Fasti ng: Unknown Performed By: #### C 80, C400, C408, C141, C48, C45, C119, C120 #### [facility] [address] [place] [address] [address] [place] [address] Sodium [Moles/Vol] 140 mmol/L Normal 135-145 [facility] Comment on above: Order Comment: Fasti ng: Unknown Performed By: #### C 80, C400, C408, C141, C48, C45, C119, C120 #### [facility] [address] [place] [address] Urea nitrogen [Mass/Vol] 15 mg/dL Normal 6-22 [facility] Comment on above: Order Comment: Fasti ng: Unknown Performed By: #### C 80, C400, C408, C141, C48, C45, C119, C120 #### [facility] [id number] Free T4on 03-24-2019 Free T4 [Mass/Vol] 1.9 ng/dL High 0.7-1.8 [facility] Comment on above: Order Comment: Fasti ng: Unknown Performed By: #### C 80, C400, C408, C141, C48, C45, C119, C120 #### [facility] [address] [place] [address] [address] [id number] TSHon 03-24-2019 TSH Qn 2.95 MIU/mL Normal 0.50-6.00 [facility] Comment on above: Performed By: #### C 80, C400, C408, C141, C48, C45, C119, C120 #### [facility] [place] [address] Cholesterolon 02-10-2019 Cholesterol [Mass/Vol] 200 mg/dL High <200 [facility] Comment on above: Order Comment: Fasti ng: Unknown Performed By: #### C 80, C400, C408, C141, C48, C45, C119, C120 #### [facility] [address] [place] [address] [place] [address] Direct LDLon 02-10-2019 Cholesterol in LDL [Mass/Vol] 88 mg/dL Normal <130 [facility] Comment on above: Order Comment: Fasti ng: Unknown Result Comment: LDL goal dependent upon individual risk Performed By: #### C 80, C400, C408, C141, C48, C45, C119, C120 #### [facility] [address] [place] [address] HDLon 02-10-2019 Cholesterol in HDL [Mass/Vol] 90 mg/dL Normal >50 [facility] Comment on above: Order Comment: Fasti ng: Unknown Performed By: #### C 80, C400, C408, C141, C48, C45, C119, C120 #### [facility] [place] [address] Triglycerideon 02-10-2019 Triglyceride [Mass/Vol] 119 mg/dL Normal <150 [facility] Comment on above: Order Comment: Fasti ng: Unknown Performed By: #### C 80, C400, C408, C141, C48, C45, C119, C120 #### [facility] [place] [address] B12/Folateon 02-09-2019 Cobalamin (Vitamin B12) [Mass/Vol] 989 pg/mL High 239-931 [facility] Comment on above: Order Comment: Fasti ng: Unknown Performed By: #### C 80, C400, C408, C141, C48, C45, C119, C120 #### [facility] [place] [address] Folate 8.12 ng/mL Normal 2.80-20.00 [facility] Comment on above: Order Comment: Fasti ng: Unknown Result Comment: Raymond peña note: Over the counter high dose supplements of Biotin that are 20 to 300 times greater than the adequate daily intake of 30 mcg/day for adults may cause a bias of 10% or more to be observed in the measured Folate concentrations. Performed By: #### C 80, C400, C408, C141, C48, C45, C119, C120 #### [facility] [address] [place] [address] Basic Metabolic Panelon 01-23 Anion gap [Moles/Vol] 10.00 mmol/L Normal 8.00-16.00 [facility] Comment on above: Order Comment: Items in this order include: Basic Metabolic Panel , Iron and TIBC, Hepatic Panel, Ferritin, Free T4, TSH, B12/Folate, Vit D 25 [place] (Total), CBC with differential, HgbA1C, Urine, Random, Albumin/Crea , , , , , Testing Performed By: [facility] [address] [place] [address]. [place] [address] Dr. Irma Shahid, Filter Changer Performed By: #### C 406, C3763, C1573, C80, C400, C408, C409, C136, C48, C45, C215 #### [facility] [address] [place] [address] [place] [address] B/C Ratio 16.0 Ratio Normal [facility] Comment on above: Order Comment: Items in this order include: Basic Metabolic Panel , Iron and TIBC, Hepatic Panel, Ferritin, Free T4, TSH, B12/Folate, Vit D 25 [place] (Total), CBC with differential, HgbA1C, Urine, Random, Albumin/Crea , , , , , Testing Performed By: [facility] [address] [place] [address]. [place] [address] Dr. Irma Shahid, Filter Changer Performed By: #### C 406, C3763, C1573, C80, C400, C408, C409, C136, C48, C45, C215 #### [facility] [facility] [place] [address] Calcium [Mass/Vol] 9.4 mg/dL Normal 8.5-10.5 [facility] Comment on above: Order Comment: Items in this order include: Basic Metabolic Panel , Iron and TIBC, Hepatic Panel, Ferritin, Free T4, TSH, B12/Folate, Vit D 25 [place] (Total), CBC with differential, HgbA1C, Urine, Random, Albumin/Crea , , , , , Testing Performed By: [facility] [address] [place] [address] Dr. Irma Shahid, Filter Changer Performed By: #### C 406, C3763, C1573, C80, C400, C408, C409, C136, C48, C45, C215 #### [facility] [address] [place] [address] [address] [place] [address] Chloride [Moles/Vol] 101 mmol/L Normal 98-107 [facility] Comment on above: Order Comment: Items in this order include: Basic Metabolic Panel , Iron and TIBC, Hepatic Panel, Ferritin, Free T4, TSH, B12/Folate, Vit D 25 [place] (Total), CBC with differential, HgbA1C, Urine, Random, Albumin/Crea , , , , , Testing Performed By: [facility] [address] [place] [address] Dr. Irma Shahid, Filter Changer Performed By: #### C 406, C3763, C1573, C80, C400, C408, C409, C136, C48, C45, C215 #### [facility] [address] [place] [address] [place] [address] CO2 [Moles/Vol] 27.0 mmol/L Normal 22.0-30.0 [facility] Comment on above: Order Comment: Items in this order include: Basic Metabolic Panel , Iron and TIBC, Hepatic Panel, Ferritin, Free T4, TSH, B12/Folate, Vit D 25 [place] (Total), CBC with differential, HgbA1C, Urine, Random, Albumin/Crea , , , , , Testing Performed By: [facility] [address] [place], [place] [id number] Dr. Irma Shahid, Filter Changer Performed By: #### C 406, C3763, C1573, C80, C400, C408, C409, C136, C48, C45, C215 #### [facility] [address] [place] [address] [place] [address] Creatinine [Mass/Vol] 1.5 mg/dL High 0.1-1.2 [facility] Comment on above: Order Comment: Items in this order include: Basic Metabolic Panel , Iron and TIBC, Hepatic Panel, Ferritin, Free T4, TSH, B12/Folate, Vit D 25 [place] (Total), CBC with differential, HgbA1C, Urine, Random, Albumin/Crea , , , , , Testing Performed By: [facility] [address] [place] [address]. [place] [id number] [address]. Irma Shahid, Filter Changer Performed By: #### C 406, C3763, C1573, C80, C400, C408, C409, C136, C48, C45, C215 #### [facility], [facility]. [address] [place] [address] [place] [address] GFR/1.73 sq M.predicted MDRD (S/P/Bld) [Vol rate/Area] 34 mL/min per 1.73 Low >60 [facility] Comment on above: Order Comment: Items in this order include: Basic Metabolic Panel , Iron and TIBC, Hepatic Panel, Ferritin, Free T4, TSH, B12/Folate, Vit D 25 [place] (Total), CBC with differential, HgbA1C, Urine, Random, Albumin/Crea , , , , , Testing Performed By: [facility] [address] [place] [address] [id number] [address] Irma Shahid, Filter Changer Result Comment: The GFR estimate is not adjusted for race. If the patient's race is -Guamanian, the GFR estimate must be multiplied by a factor of 1.21. Performed By: #### C 406, C3763, C1573, C80, C400, C408, C409, C136, C48, C45, C215 #### [facility], [facility]. [address] [place] [address] [place] [address] Glucose [Mass/Vol] 93 mg/dL Normal 74-100 [facility] Comment on above: Order Comment: Items in this order include: Basic Metabolic Panel , Iron and TIBC, Hepatic Panel, Ferritin, Free T4, TSH, B12/Folate, Vit D 25 [place] (Total), CBC with differential, HgbA1C, Urine, Random, Albumin/Crea , , , , , Testing Performed By: [facility] [address] [place] [address] Dr. Irma Shahid, Filter Changer Performed By: #### C 406, C3763, C1573, C80, C400, C408, C409, C136, C48, C45, C215 #### [facility] [address] [place] [address] [address] [place] [address] Potassium [Moles/Vol] 4.8 mmol/L Normal 3.5-5.3 [facility] Comment on above: Order Comment: Items in this order include: Basic Metabolic Panel , Iron and TIBC, Hepatic Panel, Ferritin, Free T4, TSH, B12/Folate, Vit D 25 [place] (Total), CBC with differential, HgbA1C, Urine, Random, Albumin/Crea , , , , , Testing Performed By: [facility] [address] [place] [address] Dr. Irma Shahid, Filter Changer Performed By: #### C 406, C3763, C1573, C80, C400, C408, C409, C136, C48, C45, C215 #### [facility], [facility]. [address] [place] [address] [address] [place] [address] Sodium [Moles/Vol] 138 mmol/L Normal 135-145 [facility] Comment on above: Order Comment: Items in this order include: Basic Metabolic Panel , Iron and TIBC, Hepatic Panel, Ferritin, Free T4, TSH, B12/Folate, Vit D 25 [place] (Total), CBC with differential, HgbA1C, Urine, Random, Albumin/Crea , , , , , Testing Performed By: [facility] [address] [place] [address] Dr. Irma Shahid, Filter Changer Performed By: #### C 406, C3763, C1573, C80, C400, C408, C409, C136, C48, C45, C215 #### [facility] [facility] [place] [address] Urea nitrogen [Mass/Vol] 24 mg/dL High 6-22 [facility] Comment on above: Order Comment: Items in this order include: Basic Metabolic Panel , Iron and TIBC, Hepatic Panel, Ferritin, Free T4, TSH, B12/Folate, Vit D 25 [place] (Total), CBC with differential, HgbA1C, Urine, Random, Albumin/Crea , , , , , Testing Performed By: [facility] [address] [place] [address]. [place] [address] Dr. Irma Shahid, Filter Changer Performed By: #### C 406, C3763, C1573, C80, C400, C408, C409, C136, C48, C45, C215 #### [facility] [address] [place] [address] [place] [address] CBC with differentialon 01-23 Basophils (Bld) [#/Vol] 0.0 K CUMM Normal 0.0-0.2 [facility] Comment on above: Order Comment: Items in this order include: Basic Metabolic Panel , Iron and TIBC, Hepatic Panel, Ferritin, Free T4, TSH, B12/Folate, Vit D 25 [place] (Total), CBC with differential, HgbA1C, Urine, Random, Albumin/Crea , , , , , Testing Performed By: [facility] [address] [place] [address]. [place] [address] Dr. Irma Shahid, Filter Changer Performed By: #### C 406, C3763, C1573, C80, C400, C408, C409, C136, C48, C45, C215 #### [facility] [address] [place] [address] [place] [address] Basophils/100 WBC (Bld) 0.4 % Normal 0.0-3.0 [facility] Comment on above: Order Comment: Items in this order include: Basic Metabolic Panel , Iron and TIBC, Hepatic Panel, Ferritin, Free T4, TSH, B12/Folate, Vit D 25 [place] (Total), CBC with differential, HgbA1C, Urine, Random, Albumin/Crea , , , , , Testing Performed By: [facility] [address] [place] [address] Dr. Irma Shahid, Filter Changer Performed By: #### C 406, C3763, C1573, C80, C400, C408, C409, C136, C48, C45, C215 #### [facility] [address] [place] [address] [address] [place] [id number] Eosinophils (Bld) [#/Vol] 0.1 K CUMM Normal 0.0-0.4 [facility] Comment on above: Order Comment: Items in this order include: Basic Metabolic Panel , Iron and TIBC, Hepatic Panel, Ferritin, Free T4, TSH, B12/Folate, Vit D 25 [place] (Total), CBC with differential, HgbA1C, Urine, Random, Albumin/Crea , , , , , Testing Performed By: [facility] [address] [place] [address] Dr. Irma Shahid, Filter Changer Performed By: #### C 406, C3763, C1573, C80, C400, C408, C409, C136, C48, C45, C215 #### [facility] [address] [place] [address] [address] [place] [address] Eosinophils/100 WBC (Bld) 1.5 % Normal 0.0-7.0 [facility] Comment on above: Order Comment: Items in this order include: Basic Metabolic Panel , Iron and TIBC, Hepatic Panel, Ferritin, Free T4, TSH, B12/Folate, Vit D 25 [place] (Total), CBC with differential, HgbA1C, Urine, Random, Albumin/Crea , , , , , Testing Performed By: [facility] [address] [place] [address] Dr. Irma Shahid, Filter Changer Performed By: #### C 406, C3763, C1573, C80, C400, C408, C409, C136, C48, C45, C215 #### [facility] [address] [place] [address] [address] [place] [address] Erythrocyte distribution width (RBC) [Ratio] 14.4 % Normal 11.5-15.5 [facility] Comment on above: Order Comment: Items in this order include: Basic Metabolic Panel , Iron and TIBC, Hepatic Panel, Ferritin, Free T4, TSH, B12/Folate, Vit D 25 [place] (Total), CBC with differential, HgbA1C, Urine, Random, Albumin/Crea , , , , , Testing Performed By: [facility] [address] [place] [address] [address] [address] Irma Shahid, Filter Changer Performed By: #### C 406, C3763, C1573, C80, C400, C408, C409, C136, C48, C45, C215 #### [facility] [address] [place] [address] [address] [place] [address] Hematocrit (Bld) [Volume fraction] 38.4 % Normal 37.0-47.0 [facility] Comment on above: Order Comment: Items in this order include: Basic Metabolic Panel , Iron and TIBC, Hepatic Panel, Ferritin, Free T4, TSH, B12/Folate, Vit D 25 [place] (Total), CBC with differential, HgbA1C, Urine, Random, Albumin/Crea , , , , , Testing Performed By: [facility] [address] [place] [address]. [place] [address] Dr. Irma Shahid, Filter Changer Performed By: #### C 406, C3763, C1573, C80, C400, C408, C409, C136, C48, C45, C215 #### [facility] [address] [place] [address] [address] [place] [address] Hemoglobin (Bld) [Mass/Vol] 12.7 g/dL Normal 11.5-15.5 [facility] Comment on above: Order Comment: Items in this order include: Basic Metabolic Panel , Iron and TIBC, Hepatic Panel, Ferritin, Free T4, TSH, B12/Folate, Vit D 25 [place] (Total), CBC with differential, HgbA1C, Urine, Random, Albumin/Crea , , , , , Testing Performed By: [facility] [address] [place] [address]. [place] [id number] Dr. Irma Shahid, Filter Changer Performed By: #### C 406, C3763, C1573, C80, C400, C408, C409, C136, C48, C45, C215 #### [facility] [address] [place] [address] [address] [place] [address] ImmGrn # 0.0 K CUMM Normal 0.0-0.3 [facility] Comment on above: Order Comment: Items in this order include: Basic Metabolic Panel , Iron and TIBC, Hepatic Panel, Ferritin, Free T4, TSH, B12/Folate, Vit D 25 [place] (Total), CBC with differential, HgbA1C, Urine, Random, Albumin/Crea , , , , , Testing Performed By: [facility] [address] [place] [address]. [place] [id number] Dr. Irma Shahid, Filter Changer Performed By: #### C 406, C3763, C1573, C80, C400, C408, C409, C136, C48, C45, C215 #### [facility] [address] [place] [address] [address] [place] [id number] ImmGrn % 0.3 % Normal 0.0-3.0 [facility] Comment on above: Order Comment: Items in this order include: Basic Metabolic Panel , Iron and TIBC, Hepatic Panel, Ferritin, Free T4, TSH, B12/Folate, Vit D 25 [place] (Total), CBC with differential, HgbA1C, Urine, Random, Albumin/Crea , , , , , Testing Performed By: [facility] [address] [place] [address]. [place] [address] Dr. Irma Shahid, Filter Changer Performed By: #### C 406, C3763, C1573, C80, C400, C408, C409, C136, C48, C45, C215 #### [facility] [address] [place] [address] [address] [place] [address] Lymphocytes (Bld) [#/Vol] 1.2 K CUMM Normal 0.7-4.5 [facility] Comment on above: Order Comment: Items in this order include: Basic Metabolic Panel , Iron and TIBC, Hepatic Panel, Ferritin, Free T4, TSH, B12/Folate, Vit D 25 [place] (Total), CBC with differential, HgbA1C, Urine, Random, Albumin/Crea , , , , , Testing Performed By: [facility] [address] [place] [address] Dr. Irma Shahid, Filter Changer Performed By: #### C 406, C3763, C1573, C80, C400, C408, C409, C136, C48, C45, C215 #### [facility] [address] [place] [address] [address] [place] [address] Lymphocytes/100 WBC (Bld) 13.6 % Low 14.0-46.0 [facility] Comment on above: Order Comment: Items in this order include: Basic Metabolic Panel , Iron and TIBC, Hepatic Panel, Ferritin, Free T4, TSH, B12/Folate, Vit D 25 [place] (Total), CBC with differential, HgbA1C, Urine, Random, Albumin/Crea , , , , , Testing Performed By: [facility] [address] [place], [place] [id number] Dr. Irma Shahid, Filter Changer Performed By: #### C 406, C3763, C1573, C80, C400, C408, C409, C136, C48, C45, C215 #### [facility] [address] [place] [address] [address] [place] [address] MCH (RBC) [Entitic mass] 31.3 pg High 27.0-31.0 [facility] Comment on above: Order Comment: Items in this order include: Basic Metabolic Panel , Iron and TIBC, Hepatic Panel, Ferritin, Free T4, TSH, B12/Folate, Vit D 25 [place] (Total), CBC with differential, HgbA1C, Urine, Random, Albumin/Crea , , , , , Testing Performed By: [facility] [address] [place] [address] [place] [address] [address] Irma Shahid, Filter Changer Performed By: #### C 406, C3763, C1573, C80, C400, C408, C409, C136, C48, C45, C215 #### [facility] [address] [place] [address] MCHC (RBC) [Mass/Vol] 33.1 g/dL Normal 32.0-36.0 [facility] Comment on above: Order Comment: Items in this order include: Basic Metabolic Panel , Iron and TIBC, Hepatic Panel, Ferritin, Free T4, TSH, B12/Folate, Vit D 25 [place] (Total), CBC with differential, HgbA1C, Urine, Random, Albumin/Crea , , , , , Testing Performed By: [facility] [address] [place] [address]. [place] [address] Dr. Irma Shahid, Filter Changer Performed By: #### C 406, C3763, C1573, C80, C400, C408, C409, C136, C48, C45, C215 #### [facility] [address] [facility] [address] [place] [address] MCV (RBC) [Entitic vol] 94.6 fL Normal 78.0-100.0 [facility] Comment on above: Order Comment: Items in this order include: Basic Metabolic Panel , Iron and TIBC, Hepatic Panel, Ferritin, Free T4, TSH, B12/Folate, Vit D 25 [place] (Total), CBC with differential, HgbA1C, Urine, Random, Albumin/Crea , , , , , Testing Performed By: [facility] [address] [place] [address]. [place] [address] Dr. Irma Shahid, Filter Changer Performed By: #### C 406, C3763, C1573, C80, C400, C408, C409, C136, C48, C45, C215 #### [facility] [address] [facility] [address] [place] [address] Monocytes (Bld) [#/Vol] 0.8 K CUMM Normal 0.1-1.0 [facility] Comment on above: Order Comment: Items in this order include: Basic Metabolic Panel , Iron and TIBC, Hepatic Panel, Ferritin, Free T4, TSH, B12/Folate, Vit D 25 [place] (Total), CBC with differential, HgbA1C, Urine, Random, Albumin/Crea , , , , , Testing Performed By: [facility] [address] [place] [address]. [place] [id number] Dr. Irma Shahid, Filter Changer Performed By: #### C 406, C3763, C1573, C80, C400, C408, C409, C136, C48, C45, C215 #### [facility] [address] [place] [address] [address] [place] [address] Monocytes/100 WBC (Bld) 8.7 % Normal 4.0-13.0 [facility] Comment on above: Order Comment: Items in this order include: Basic Metabolic Panel , Iron and TIBC, Hepatic Panel, Ferritin, Free T4, TSH, B12/Folate, Vit D 25 [place] (Total), CBC with differential, HgbA1C, Urine, Random, Albumin/Crea , , , , , Testing Performed By: [facility] [address] [place] [address] [address] [address] Irma Shahid, Filter Changer Performed By: #### C 406, C3763, C1573, C80, C400, C408, C409, C136, C48, C45, C215 #### [facility] [address] [place] [address] [address] [place] [address] Neutrophils (Bld) [#/Vol] 6.8 K CUMM Normal 1.8-7.8 [facility] Comment on above: Order Comment: Items in this order include: Basic Metabolic Panel , Iron and TIBC, Hepatic Panel, Ferritin, Free T4, TSH, B12/Folate, Vit D 25 [place] (Total), CBC with differential, HgbA1C, Urine, Random, Albumin/Crea , , , , , Testing Performed By: [facility] [address] [place] [address] [address] [address] Irma Shahid, Filter Changer Performed By: #### C 406, C3763, C1573, C80, C400, C408, C409, C136, C48, C45, C215 #### [facility] [facility] [address] [place] [address] Neutrophils/100 WBC (Bld) 75.5 % High 40.0-74.0 [facility] Comment on above: Order Comment: Items in this order include: Basic Metabolic Panel , Iron and TIBC, Hepatic Panel, Ferritin, Free T4, TSH, B12/Folate, Vit D 25 [place] (Total), CBC with differential, HgbA1C, Urine, Random, Albumin/Crea , , , , , Testing Performed By: [facility] [address] [place] [address] [address] [address] Irma Shahid, Filter Changer Performed By: #### C 406, C3763, C1573, C80, C400, C408, C409, C136, C48, C45, C215 #### [facility], [facility]. [address] [place] [address] [address] [place] [address] Platelet mean volume (Bld) [Entitic vol] 10.9 fL Normal 8.9-12.6 [facility] Comment on above: Order Comment: Items in this order include: Basic Metabolic Panel , Iron and TIBC, Hepatic Panel, Ferritin, Free T4, TSH, B12/Folate, Vit D 25 [place] (Total), CBC with differential, HgbA1C, Urine, Random, Albumin/Crea , , , , , Testing Performed By: [facility] [address] [place] [address] [address] [address] Irma Shahid, Filter Changer Performed By: #### C 406, C3763, C1573, C80, C400, C408, C409, C136, C48, C45, C215 #### [facility] [address] [place] [address] [address] [place] [address] Platelets (Bld) [#/Vol] 283 K CUMM Normal 130-400 [facility] Comment on above: Order Comment: Items in this order include: Basic Metabolic Panel , Iron and TIBC, Hepatic Panel, Ferritin, Free T4, TSH, B12/Folate, Vit D 25 [place] (Total), CBC with differential, HgbA1C, Urine, Random, Albumin/Crea , , , , , Testing Performed By: [facility] [address] [place] [address]. [place] [address] Dr. Irma Shahid, Filter Changer Performed By: #### C 406, C3763, C1573, C80, C400, C408, C409, C136, C48, C45, C215 #### [facility] [address] [facility] [address] [place] [address] RBC (Bld) [#/Vol] 4.06 M CUMM Normal 3.80-5.10 [facility] Comment on above: Order Comment: Items in this order include: Basic Metabolic Panel , Iron and TIBC, Hepatic Panel, Ferritin, Free T4, TSH, B12/Folate, Vit D 25 [place] (Total), CBC with differential, HgbA1C, Urine, Random, Albumin/Crea , , , , , Testing Performed By: [facility] [address] [place] [address]. [place] [address] Dr. Irma Shahid, Filter Changer Performed By: #### C 406, C3763, C1573, C80, C400, C408, C409, C136, C48, C45, C215 #### [facility] [address] [facility] [address] [place] [address] WBC (Bld) [#/Vol] 9.1 K CUMM Normal 3.8-10.6 [facility] Comment on above: Order Comment: Items in this order include: Basic Metabolic Panel , Iron and TIBC, Hepatic Panel, Ferritin, Free T4, TSH, B12/Folate, Vit D 25 [place] (Total), CBC with differential, HgbA1C, Urine, Random, Albumin/Crea , , , , , Testing Performed By: [facility] [address] [place] [address]. [place] [address] Dr. Irma Shahid, Filter Changer Performed By: #### C 406, C3763, C1573, C80, C400, C408, C409, C136, C48, C45, C215 #### [facility] [address] [facility] [address] [place] [address] Culture, Urineon 02-09-2019 RPT Microbiology results Abnormal [facility] Comment on above: Order Comment: Fasti ng: Unknown Result Comment: Elda l Result: Less than 10,000 CFU/mL of 2 or more organisms present. This usually indicates vaginal, urethral and/or skin contamination. ID and sensitivities will not be performed. Performed By: #### C 80, C400, C408, C141, C48, C45, C119, C120 #### [facility] [facility] [address] [place] [address] Ferritinon 02-09-2019 Ferritin [Mass/Vol] 103.7 ng/mL Normal 15.0-200.0 [facility] Comment on above: Order Comment: Fasti ng: Unknown Performed By: #### C 80, C400, C408, C141, C48, C45, C119, C120 #### [facility] [address] [facility] [address] [place] [address] Free T4on 02-09-2019 Free T4 [Mass/Vol] 2.0 ng/dL High 0.7-1.8 [facility] Comment on above: Performed By: #### C 80, C400, C408, C141, C48, C45, C119, C120 #### [facility] [address] [facility] [address] [place] [address] Hepatic Panelon 02-09-2019 Albumin [Mass/Vol] 4.6 g/dL Normal 3.5-5.0 [facility] Comment on above: Performed By: #### C 80, C400, C408, C141, C48, C45, C119, C120 #### [facility] [address] [facility] [address] [place] [address] Alk Phos 57 U/L Normal 23-159 [facility] Comment on above: Performed By: #### C 80, C400, C408, C141, C48, C45, C119, C120 #### [facility] [address] [place] [address] ALT [Catalytic activity/Vol] 27 U/L Normal 10-52 [facility] Comment on above: Performed By: #### C 80, C400, C408, C141, C48, C45, C119, C120 #### [facility] [address] [place] [address] AST [Catalytic activity/Vol] 29 U/L Normal 11-43 [facility] Comment on above: Performed By: #### C 80, C400, C408, C141, C48, C45, C119, C120 #### [facility] [address] [place] [address] Bili (Direct) 0.0 mg/dL Normal 0.0-0.3 [facility] Comment on above: Performed By: #### C 80, C400, C408, C141, C48, C45, C119, C120 #### [facility] [address] [place] [address] [place] [address] Bili (Indirect) 0.3 mg/dL Normal 0.0-1.1 [facility] Comment on above: Performed By: #### C 80, C400, C408, C141, C48, C45, C119, C120 #### [facility] [place] [address] Bilirubin [Mass/Vol] 0.8 mg/dL Normal 0.2-1.3 [facility] Comment on above: Performed By: #### C 80, C400, C408, C141, C48, C45, C119, C120 #### [facility] [place] [address] Protein [Mass/Vol] 6.9 g/dL Normal 6.3-8.4 [facility] Comment on above: Performed By: #### C 80, C400, C408, C141, C48, C45, C119, C120 #### [facility] [address] [place] [address] [id number] 02-09-2019 HbA1c (Bld) [Mass fraction] 5.3 % Normal <5.7 [facility] Comment on above: Order Comment: Fasti ng: Unknown Result Comment: Refe rence Interval: Normal: below 5.7%. Prediabetes: 5.7% to 6.4%. Diabetes: 6.5% or above. Performed By: #### C 80, C400, C408, C141, C48, C45, C119, C120 #### [facility] [address] [place] [address] Iron and TIBCon 02-09-2019 % Saturation 36 % Normal 20-55 [facility] Comment on above: Order Comment: Fasti ng: Unknown Performed By: #### C 80, C400, C408, C141, C48, C45, C119, C120 #### [facility] [address] [place] [address] Iron [Mass/Vol] 97 ug/dL Normal 37-170 [facility] Comment on above: Order Comment: Fasti ng: Unknown Performed By: #### C 80, C400, C408, C141, C48, C45, C119, C120 #### [facility] [address] [place] [address] TIBC 271 ug/dL Normal 265-497 [facility] Comment on above: Order Comment: Fasti ng: Unknown Performed By: #### C 80, C400, C408, C141, C48, C45, C119, C120 #### [facility] [address] [place] [address] TSHon 02-09-2019 TSH Qn 1.54 MIU/mL Normal 0.50-6.00 [facility] Comment on above: Order Comment: Fasti ng: Unknown Performed By: #### C 80, C400, C408, C141, C48, C45, C119, C120 #### [facility] [address] [facility] [place] [address] Urine, Random, Albumin/Creao n 02-09-2019 Albumin DL <= 20 mg/L (U) [Mass/Vol] 2.6 mg/dL High 0.0-1.6 [facility] Comment on above: Order Comment: Fasti ng: Unknown Performed By: #### C 80, C400, C408, C141, C48, C45, C119, C120 #### [facility] [address] [place] [address] [place] [address] Creatinine (U) [Mass/Vol] 179.0 mg/dL Normal 28.0-217.0 [facility] Comment on above: Order Comment: Fasti ng: Unknown Performed By: #### C 80, C400, C408, C141, C48, C45, C119, C120 #### [facility] [address] [place] [address] [place] [address] Urine Microalb/ Creat Ratio 14.5 mcg/mg creat [...] C408, C141, C48, C45, C119, C120 #### [facility] [address] [facility] [address] [place] [address] Vit D 25 [place] (Total)on 2018 Vit D 25 [place] (Total) 34.3 ng/ml Normal 31.0-100.0 [facility] Comment on above: Order Comment: Fasti ng: Unknown Result Comment: Defi ciency <10 ng/ml Insufficiency 10-30 ng/ml Sufficiency 31-100 ng/ml Toxicity >100 ng/ml Performed By: #### C 80, C400, C408, C141, C48, C45, C119, C120 #### [facility] [address] [facility] [address] [place] [address] RI Mammo Digital Screening b ilat (NB)on 10-06-2018 MA Mammo Digital Screening bilat (NB) EXAMINATION TYPE: RI Mammo Digital Screening bilat (NB) DATE OF EXAM : 10/06/2018 2:34 PM PATIENT HISTORY: Menarche at age 14. Patient has no children. Postmenopausal. Maternal aunt had breast cancer at or over age 50. PRIOR STUDIES: 03/30/2007, 03/02/2009, 12/04/2010, 10/05/2012, 07/10/2015 REASON FOR STUDY: Breast Screening. TECHNIQUE: Digital mammography views were obtained. Computer-aided detection utilizing PaperwovenCAD reader has been performed. BREAST COMPOSITION: The breast tissue is almost entirely fatty FINDINGS: There are no suspicious abnormalities. There has been no significant interval change. IMPRESSION: No mammographic evidence for malignancy. BI-RADS Code: 1-Negative RECOMMENDATION: 1. Screening Mammogram in 1 year [place] thanks you for the opportunity to care for your patient. Workstation ID: [id number] FINAL REPORT Dictated By: Becka Valentine MD 10/06/2018 14:45 Assigned Physician: Becka Valentine MD Reviewed and Electronically Signed By: Becka Valentine MD 10/06/2018 14:45 Transcribed by: PIERRE 10/06/2018 14:45 Technologist: LRS Normal [facility] XR Bone Density DXA Axial [facility] 10-06-2018 DXA Skeletal system Views for bone density == Bone Density Report == Name: DEBRA GARCÍA Age: 77 Sex: Female Ethnicity: White Date of : 1940 -- Indication: postmenopausal osteoporosis; height loss; inflammatory bowel disease; hysterectomy; Referring Provider: NIA JOHNSON Study: Bone densitometry was performed. Exam Date: October 06, 2018 Accession number: [id number] Bone Density: -- Region BMD T-score Z-score [...] cause or contribute to bone loss. The [place] [employer] (AACE) and National [...] Valentine MD 10/08/2018 08:25 10/08/2018 08:21 Technologist: JONAS Golden [facility] ECG 12-LEADon 09-29-2018 Atrial Rate [facility] P [place] [facility] P-R Interval [facility] Q-T Interval [facility] [facility] Q-T Interval (corrected) [facility] QRS Duration [facility] QTC Calculation (Bezet) [facility] R [place] [facility] T [place] [facility] Ventricular Rate [facility] Basic Metabolic Panelon 06-25 Anion gap [Moles/Vol] 8.50 mmol/L Normal 8.00-16.00 [facility] Comment on above: Order Comment: Fasti ng: Unknown Performed By: #### C 80, C400, C408, C141, C48, C45, C119, C120 #### [facility] [address] [place] [address] B/C Ratio 15.0 Ratio Normal [facility] Comment on above: Order Comment: Fasti ng: Unknown Performed By: #### C 80, C400, C408, C141, C48, C45, C119, C120 #### [facility] [address] [place] [address] Calcium [Mass/Vol] 9.9 mg/dL Normal 8.5-10.5 [facility] Comment on above: Order Comment: Fasti ng: Unknown Performed By: #### C 80, C400, C408, C141, C48, C45, C119, C120 #### [facility] [address] [place] [address] Chloride [Moles/Vol] 102 mmol/L Normal 98-107 [facility] Comment on above: Order Comment: Fasti ng: Unknown Performed By: #### C 80, C400, C408, C141, C48, C45, C119, C120 #### [facility] [address] [place] [address] CO2 [Moles/Vol] 27.5 mmol/L Normal 22.0-30.0 [facility] Comment on above: Order Comment: Fasti ng: Unknown Performed By: #### C 80, C400, C408, C141, C48, C45, C119, C120 #### [facility] [address] [place] [address] Creatinine [Mass/Vol] 1.0 mg/dL Normal 0.1-1.2 [facility] Comment on above: Order Comment: Fasti ng: Unknown Performed By: #### C 80, C400, C408, C141, C48, C45, C119, C120 #### [facility] [address] [place] [address] GFR/1.73 sq M.predicted MDRD (S/P/Bld) [Vol rate/Area] 54 mL/min per 1.73 Low >60 [facility] Comment on above: Order Comment: Fasti ng: Unknown Result Comment: The GFR estimate is not adjusted for race. If the patient's race is -Guaman[place], the GFR estimate must be multiplied by a factor of 1.21. Performed By: #### C 80, C400, C408, C141, C48, C45, C119, C120 #### [facility] [place] [address] Glucose [Mass/Vol] 91 mg/dL Normal 74-100 [facility] Comment on above: Order Comment: Fasti ng: Unknown Performed By: #### C 80, C400, C408, C141, C48, C45, C119, C120 #### [facility] [address] [place] [address] [place] [address] Potassium [Moles/Vol] 3.8 mmol/L Normal 3.5-5.3 [facility] Comment on above: Order Comment: Fasti ng: Unknown Performed By: #### C 80, C400, C408, C141, C48, C45, C119, C120 #### [facility] [address] [place] [address] [place] [address] Sodium [Moles/Vol] 138 mmol/L Normal 135-145 [facility] Comment on above: Order Comment: Fasti ng: Unknown Performed By: #### C 80, C400, C408, C141, C48, C45, C119, C120 #### [facility] [address] [place] [address] [place] [address] Urea nitrogen [Mass/Vol] 15 mg/dL Normal 6-22 [facility] Comment on above: Order Comment: Fasti ng: Unknown Performed By: #### C 80, C400, C408, C141, C48, C45, C119, C120 #### [facility] [address] [place] [address] [place] [address] Direct LDLon 07-07-2018 Cholesterol in LDL [Mass/Vol] [...] C408, C141, C48, C45, C119, C120 #### [facility] [address] [place] [address] Free T4on 07-07-2018 Free T4 [Mass/Vol] 1.5 ng/dL Normal 0.7-1.8 [facility] Comment on above: Order Comment: Items in this order include: Free T4, Direct LDL , Urine, Random, Albumin/Crea , HDL, TSH, Triglyceride, Basic Metabolic Panel , Hepatic Panel, , Fasting: Unknown Performed By: #### C 80, C400, C408, C141, C48, C45, C119, C120 #### [facility] [address] [place] [address] [address] [place] [address] HDLon 07-07-2018 Cholesterol in HDL [Mass/Vol] 109 mg/dL Normal >50 [facility] Comment on above: Order Comment: Items in this order include: Free T4, Direct LDL , Urine, Random, Albumin/Crea , HDL, TSH, Triglyceride, Basic Metabolic Panel , Hepatic Panel, , Fasting: Unknown Performed By: #### C 80, C400, C408, C141, C48, C45, C119, C120 #### [facility] [place] [address] Hepatic Panelon 07-07-2018 Albumin [Mass/Vol] 4.9 g/dL Normal 3.5-5.0 [facility] Comment on above: Order Comment: Fasti ng: Unknown Performed By: #### C 80, C400, C408, C141, C48, C45, C119, C120 #### [facility] [address] [place] [address] Alk Phos 79 U/L Normal 23-159 [facility] Comment on above: Order Comment: Fasti ng: Unknown Performed By: #### C 80, C400, C408, C141, C48, C45, C119, C120 #### [facility] [address] [place] [address] ALT [Catalytic activity/Vol] 21 U/L Normal 10-52 [facility] Comment on above: Order Comment: Fasti ng: Unknown Performed By: #### C 80, C400, C408, C141, C48, C45, C119, C120 #### [facility] [address] [place] [address] AST [Catalytic activity/Vol] 24 U/L Normal 11-43 [facility] Comment on above: Order Comment: Fasti ng: Unknown Performed By: #### C 80, C400, C408, C141, C48, C45, C119, C120 #### [facility] [address] [place] [address] Rd [address] [place] [address] Bili (Direct) 0.0 mg/dL Normal 0.0-0.3 [facility] Comment on above: Order Comment: Fasti ng: Unknown Performed By: #### C 80, C400, C408, C141, C48, C45, C119, C120 #### [facility] [address] [place] [address] Rd [address] [place] [address] Bili (Indirect) 0.3 mg/dL Normal 0.0-1.1 [facility] Comment on above: Order Comment: Fasti ng: Unknown Performed By: #### C 80, C400, C408, C141, C48, C45, C119, C120 #### [facility] [address] [place] [address] Rd [address] [place] [address] Bilirubin [Mass/Vol] 1.0 mg/dL Normal 0.2-1.3 [facility] Comment on above: Order Comment: Fasti ng: Unknown Performed By: #### C 80, C400, C408, C141, C48, C45, C119, C120 #### [facility] [address] [place] [address] [place] [address] Protein [Mass/Vol] 7.5 g/dL Normal 6.3-8.4 [facility] Comment on above: Order Comment: Fasti ng: Unknown Performed By: #### C 80, C400, C408, C141, C48, C45, C119, C120 #### [facility] [address] [place] [address] TSHon 07-07-2018 TSH Qn 5.11 MIU/mL Normal 0.50-6.00 [facility] Comment on above: Order Comment: Items in this order include: Free T4, Direct LDL , Urine, Random, Albumin/Crea , HDL, TSH, Triglyceride, Basic Metabolic Panel , Hepatic Panel, , Fasting: Unknown Performed By: #### C 80, C400, C408, C141, C48, C45, C119, C120 #### [facility] [address] [place] [address] Triglycerideon 07-07-2018 CO2 [Moles/Vol] 107 mg/dL Normal <150 [facility] Comment on above: Order Comment: Fasti ng: Unknown Performed By: #### C 80, C400, C408, C141, C48, C45, C119, C120 #### [facility] [address] [place] [address] Urine, Random, Albumin/Creao n 07-07-2018 Albumin DL <= 20 mg/L (U) [Mass/Vol] 11.7 mg/dL High 0.0-1.6 [facility] Comment on above: Order Comment: Items in this order include: Free T4, Direct LDL , Urine, Random, Albumin/Crea , HDL, TSH, Triglyceride, Basic Metabolic Panel , Hepatic Panel, , Fasting: Unknown Performed By: #### C 80, C400, C408, C141, C48, C45, C119, C120 #### [facility] [address] [place] [address] Creatinine (U) [Mass/Vol] 95.2 mg/dL Normal 28.0-217.0 [facility] Comment on above: Order Comment: Items in this order include: Free T4, Direct LDL , Urine, Random, Albumin/Crea , HDL, TSH, Triglyceride, Basic Metabolic Panel , Hepatic Panel, , Fasting: Unknown Performed By: #### C 80, C400, C408, C141, C48, C45, C119, C120 #### [facility] [address] [place] [address] Urine Microalb/ Creat Ratio 122.9 mcg/mg creat High 0.0-29.9 [facility] Comment on above: Order Comment: Items in [...] C408, C141, C48, C45, C119, C120 #### [facility] [address] [place] [address] CBC WITH AUTO DIFFERENTIALon 07-02-2018 Basophils #/vol (Bld) 0.04 10*3/uL [facility] Basophils/100 WBC (Bld) 0.5 % [facility] Eosinophils #/vol (Bld) 0.11 10*3/uL [facility] Eosinophils/100 WBC (Bld) 1.4 % [facility] Erythrocyte distribution width Entitic volume (RBC) 15.1 % High 11.6 - 14.8 % [facility] Hematocrit Volume Fraction (Bld) 38.0 % 36 - 46 % [facility] Hemoglobin mass conc (Bld) 12.6 g/dL 12 - 16 g/dL [facility] Immature granulocytes #/vol (Bld) 0.06 10*3/uL [facility] Immature granulocytes/100 WBC (Bld) 0.80 % [facility] Comment on above: The IG parameter is the percentage of metamyelocytes, myelocytes, and promyelocytes. Interpretation and review of laboratory results Abnormal [facility] Lymphocytes #/vol (Bld) 0.69 10*3/uL Low [facility] Lymphocytes/100 WBC (Bld) 8.7 % [facility] MCH Entitic mass (RBC) 32.4 pg 26 - 34 pg [facility] MCHC mass conc (RBC) 33.2 g/dL 31 - 37 g/dL [facility] MCV Entitic volume (RBC) 97.7 fL 80 - 100 fL [facility] Monocytes #/vol (Bld) 0.74 10*3/uL [facility] Monocytes/100 WBC (Bld) 9.3 % [facility] Neutrophils #/vol (Bld) 6.28 10*3/uL [facility] Neutrophils/100 WBC (Bld) 79.3 % [facility] Nucleated RBC #/vol (Bld) 0.00 10*3/uL [facility] Nucleated RBC/100 WBC Ratio (Bld) 0.0 % [facility] Platelet mean volume Entitic volume (Bld) 10.8 fL 9 - 15.5 fL [facility] Platelets #/vol (Bld) 216 10*3/uL [facility] RBC #/vol (Bld) 3.89 10*6/uL Low [facility] WBC #/vol (Bld) 7.92 10*3/uL [facility] Chem 7on 07-02-2018 Anion gap molar conc 16 mmol/L 10 - 20 mmol/L [facility] Chloride molar conc 103 mmol/L 98 - 108 mmol/L [facility] Creatinine mass conc 1.12 mg/dL 0.6 - 1.2 mg/dL [facility] GFR/1.73 sq M predicted among non-blacks MDRD vol rate/area (S/P/Bld) The eGFR should be used for monitoring renal function only and not for medication dosing. [facility] GFR/1.73 sq M.predicted CKD-EPI vol rate/area (S/P/Bld) 47 Low >=60 mL/min/1.73 m2 [facility] Glucose mass conc 117 mg/dL High 65 - 99 mg/dL [facility] HCO3 molar conc 27 mmol/L 21 - 32 mmol/L [facility] Interpretation and review of laboratory results Abnormal [facility] Potassium molar conc 4.3 mmol/L 3.5 - 5.1 mmol/L [facility] Sodium molar conc 142 mmol/L 135 - 145 mmol/L [facility] Urea nitrogen mass conc 24 mg/dL 8 - 25 mg/dL [facility] Urea nitrogen/Creatinine mass ratio 21.4 mg/mg High [facility] Otheron 07-02-2018 Extra Tube Hold for add-ons. [facility] Comment on above: Auto resulted. URINALYSISon 07-02-2018 Bacteria Auto Ql (U) Rare Abnormal None Seen /hpf [facility] Bilirubin Ql (U) Negative Negative [facility] th Clarity Refractometry automated Nom (U) Clear Clear [facility] Color Nom (U) Yellow Colorless, Yellow [facility] Epithelial cells.squamous Auto #/area (Urine sed) <1 [facility] Glucose Automated test strip mass conc (U) Negative Negative mg/dL [facility] Hemoglobin Automated test strip Ql (U) Negative Negative [facility] Hyaline casts Auto #/area (Urine sed) 3-5 Abnormal 0 - 2 /lpf [facility] Interpretation and review of laboratory results Abnormal [facility] Ketones mass conc (U) Negative Negative mg/dL [facility] Leukocyte esterase Automated test strip Ql (U) Negative Negative [facility] Mucus Auto #/area (Urine sed) Rare None Seen, Rare /lpf [facility] Nitrite Automated test strip Ql (U) Negative Negative [facility] pH (U) 6.0 [pH] [facility] Protein mass conc (U) Negative Negative mg/dL [facility] RBC Auto #/area (Urine sed) <1 [facility] Specific gravity Relative Density (U) 1.010 [facility] Urobilinogen mass conc (U) <2.0 <2.0 mg/dL [facility] WBC Auto #/area (Urine sed) <1 [facility] Microscopic examination is performed on all urinalysis samples and only positive findings are reported. The test for blood on the chemical analytic portion of urinalysis may also be positive due to hemoglobinuria and myoglobinuria and if red blood cells are present they are quantified by microscopic examination. [facility] Hepatic Function Panelon Alanine aminotransferase (ALT) 10 U/L Invalid Interpretation Code 0 - 40 U/L [facility] Albumin 4.4 g/dL Invalid Interpretation Code 3.2 - 5.2 g/dL [facility] Alkaline phosphatase (ALP) 58 U/L Invalid Interpretation Code 40 - 150 U/L [facility] Aspartate aminotransferase (AST) 15 U/L Invalid Interpretation Code 0 - 45 U/L [facility] Bilirubin (conjugated) 0.2 mg/dL Invalid Interpretation Code 0 - 0.4 mg/dL [facility] Bilirubin (total) 0.7 mg/dL Invalid Interpretation Code 0 - 1.3 mg/dL [facility] Protein 6.6 g/dL Invalid Interpretation Code 6 - 8 g/dL [facility] TSH with Reflex Free T4on Interpretation and review of laboratory results Normal Invalid Interpretation Code [facility] Thyroid stimulating hormone (TSH) 5.00 mcIU/mL Invalid Interpretation Code 0.32 - 5.00 [facility] XR Chest AP/PA and LATon XR Chest AP/PA and LAT 1. No acute cardiopulmonary process. 2. Stable hiatal hernia. 3. 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 [employer] Workstation ID: [id number] Invalid Interpretation Code [facility] [place] XR Chest AP/PA and LAT EXAMINATION: 2-VIEW CHEST HISTORY: ORDERING SYSTEM PROVIDED HISTORY: retirement current use of 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 drug, TECHNOLOGIST PROVIDED HISTORY: Reason for exam: Class III Monitoring Illness/Other Cancer History: n Surgery, RadiationHistory: n Encounter Type: Subsequent/Follow-up Additional signs and symptoms: n ORDERING SYSTEM PROVIDED DIAGNOSIS CODES: Z79.899 retirement current use of 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 drug COMPARISON: Chest [...] right rotator cuff surgery. 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 [employer] Workstation ID: [id number] Invalid Interpretation Code [facility] ECG 12 Leadon 04-08-2017 Atrial Rate Invalid Interpretation Code [facility] [employer] Phone: P [place] Invalid Interpretation Code [facility] [employer] Phone: P-R Interval Invalid Interpretation Code [facility] [employer] Phone: Q-T Interval Invalid Interpretation Code [facility] [employer] Phone: Q-T Interval (corrected) Invalid Interpretation Code [facility] [employer] Phone: QRS Duration Invalid Interpretation Code [facility] [employer] Phone: QTC Calculation (Bezet) Invalid Interpretation Code [facility] [employer] Phone: R [place] Invalid Interpretation Code [facility] [employer] Phone: T [place] Invalid Interpretation Code [facility] [employer] Phone: Ventricular Rate Invalid Interpretation Code [facility] [employer] Phone: Hepatic Function Panelon Alanine aminotransferase (ALT) 9 U/L Invalid Interpretation Code 0 - 40 U/L [facility] Albumin 4.3 g/dL Invalid Interpretation Code 3.2 - 5.2 g/dL [facility] Alkaline phosphatase (ALP) 63 U/L Invalid Interpretation Code 40 - 150 U/L [facility] Aspartate aminotransferase (AST) 13 U/L Invalid Interpretation Code 0 - 45 U/L [facility] Bilirubin (conjugated) 0.2 mg/dL Invalid Interpretation Code 0 - 0.4 mg/dL [facility] Bilirubin (total) 0.4 mg/dL Invalid Interpretation Code 0 - 1.3 mg/dL [facility] Interpretation and review of laboratory results Normal Invalid Interpretation Code [facility] Protein 6.5 g/dL Invalid Interpretation Code 6 - 8 g/dL [facility] T4, Freeon 04-08-2017 Thyroxine (T4) free 1.5 ng/dL Invalid Interpretation Code 0.7 - 1.7 ng/dL [facility] TSH with Reflex Free T4on Interpretation and review of laboratory results Abnormal Invalid Interpretation Code [facility] Thyroid stimulating hormone (TSH) 8.89 mcIU/mL High 0.32 - 5.00 [facility] Vital Signs Date Time Vital Sign Value Performing Clinician Facility 02-17-2023 15:00-0400 Body height 149.86 cm Boyd Bustamante Other [facility] Other 02-17-2023 15:00-0400 Body mass index (BMI) [Ratio] 31.71 kg/m2 Boyd Bustamante Other [facility] Other 02-17-2023 15:00-0400 Body weight 71.22 kg Boyd Bustamante Other [facility] Other 02-17-2023 15:00-0400 Diastolic blood pressure 70 mm[Hg] Boyd Bustamante Other [facility] Other 02-17-2023 15:00-0400 SaO2% (BldA) [Mass fraction] 97 % Boyd Bustamante Other [facility] Other 02-17-2023 15:00-0400 Systolic blood pressure 90 mm[Hg] Boyd Bustamante Other [facility] Other 07-01-2022 15:30-0500 Body height 149.86 cm Boyd Bustamante Other [facility] Other 07-01-2022 15:30-0500 Body mass index (BMI) [Ratio] 32.92 kg/m2 Boyd Bustamante Other [facility] Other 07-01-2022 15:30-0500 Body weight 73.94 kg Boyd Bustamante Other [facility] Other 07-01-2022 15:30-0500 Diastolic blood pressure 72 mm[Hg] Boyd Bustamante Other [facility] Other 07-01-2022 15:30-0500 SaO2% (BldA) [Mass fraction] 98 % Boyd Bustamante Other [facility] Other 07-01-2022 15:30-0500 Systolic blood pressure 126 mm[Hg] Boyd Bustamante Other [facility] Other 01-06-2020 10:18-0400 BMI (Body Mass Index) 27.5 kg/m2 Leonora [facility] 01-06-2020 10:18-0400 Body weight 72.67 kg Leonora [facility] 01-06-2020 10:18-0400 BP Diastolic 68 mm[Hg] Leonora [facility] 01-06-2020 10:18-0400 BP Systolic 116 mm[Hg] Leonora [facility] 01-06-2020 10:18-0400 Height 162.6 cm Leonora [facility] 01-06-2020 10:18-0400 Pulse (Heart Rate) 57 /min Leonora [facility] 09-29-2018 14:07-0400 BMI (Body Mass Index) 32.27 kg/m2 Leonora [facility] 09-29-2018 14:07-0400 BP Diastolic 73 mm[Hg] Leonora [facility] 09-29-2018 14:07-0400 BP Systolic 122 mm[Hg] Leonora [facility] 09-29-2018 14:07-0400 Height 162.6 cm Leonora Saunders [facility] 09-29-2018 14:07-0400 Pulse (Heart Rate) 63 /min Leonora Saunders [facility] 09-29-2018 14:07-0400 Weight 85.28 kg Leonora Saunders [facility] 07-02-2018 09:02-0500 BP Diastolic 56 mm[Hg] Tito [facility] 07-02-2018 09:02-0500 BP Systolic 127 mm[Hg] Tito [facility] 07-02-2018 09:02-0500 Pulse (Heart Rate) 70 /min Tito [facility] 07-02-2018 09:02-0500 Pulse Oximetry 96 % [facility] 07-02-2018 09:02-0500 Respiratory Rate 16 /min Tito [facility] 07-02-2018 05:27-0500 BMI (Body Mass Index) 36.22 kg/m2 [facility] 07-02-2018 05:27-0500 Body Temperature 98.6 [degF] [facility] 07-02-2018 05:27-[address] [facility] 07-02-2018 05:27-[address] [facility] 04-08-2017 11:19-0500 BMI (Body Mass Index) 35.53 kg/m2 Leonora Saunders [facility] Work Phone: 04-08-2017 11:19-0500 BP Diastolic 74 mm[Hg] Leonora Saunders [facility] Work Phone: 04-08-2017 11:19-0500 BP Systolic 120 mm[Hg] Leonora Saunders [facility] Work Phone: 04-08-2017 11:19-0500 Height 162.6 cm Leonora Saunders [facility] Work Phone: 04-08-2017 11:19-0500 Pulse (Heart Rate) 66 /min Leonora Saunders [facility] Work Phone: 04-08-2017 11:19-0500 Weight 93.89 kg Leonora Saunders [facility] Work Phone: Encounters Encounter Date Encounter Type Care Provider Facility Start: 07-14-2023 End: 07-14-2023 ambulatory [facility] Start: 06-16-2023 End: 06-16-2023 ambulatory [facility] Start: 05-26-2023 End: 05-26-2023 ambulatory [facility] Start: 05-11-2023 ambulatory [facility] Start: 05-11-2023 End: 05-11-2023 ambulatory [facility] Start: 04-23-2023 End: 04-23-2023 ambulatory ALEC JERRY [facility] Start: 04-11-2023 Evaluation and manag ement of inpatient JOVANNY FORREST [facility] Start: 04-10-2023 End: 04-11-2023 Evaluation and management of inpatient BECKY [facility] Start: 03-27-2023 End: 03-27-2023 ambulatory [facility] Start: 02-26-2023 End: 02-26-2023 ambulatory GROVER PEARL [facility] Start: 02-17-2023 End: 02-17-2023 ambulatory PARAM [facility] [employer] Other Start: 02-17-2023 Office outpatient vi sit 15 minutes Boyd Bustamante [facility] Start: 01-21-2023 End: 01-21-2023 ambulatory Boyd Bustamante Other [employer] Other Start: 01-21-2023 Telephone encounter Boyd Bustamante [facility] Start: 01-19-2023 End: 01-19-2023 ambulatory Boyd Bustamante Other [employer] Other Start: 01-19-2023 Telephone encounter Boyd Bustamante [facility] Start: 12-03-2022 ambulatory [facility] Start: 11-28-2022 End: 11-28-2022 ambulatory Boyd Bustamante Other [employer] Other Start: 11-28-2022 Telephone encounter Boyd Bustamante [facility] Start: 10-22-2022 End: 10-22-2022 ambulatory Boyd Bustamante Other [employer] Other Start: 10-22-2022 Telephone encounter Boyd Bustamante [facility] Start: 10-21-2022 End: 10-21-2022 ambulatory Boyd Bustamante Other [employer] Other Start: 10-21-2022 Telephone encounter Boyd Bustamante [facility] Start: 09-24-2022 End: 09-25-[address] BOYD BUSTAMANTE Facility:[facility]1 Start: 08-19-2022 End: 08-19-2022 ambulatory Boyd Bustamante Other [employer] Other Start: 08-19-2022 Telephone encounter Boyd Bustamante [facility] [employer] Start: 08-12-2022 End: 08-13-[address] BOYD BUSTAMANTE [employer] Other Start: 08-12-2022 Telephone encounter Boyd Bustamante [facility] Start: 07-24-2022 End: 07-25-[address] BOYD BUSTAMANTE Facility:[facility] Start: 07-17-[address] BOYD BUSTAMANTE Facil ity:[facility]1 Start: 07-02-2022 End: 07-02-2022 ambulatory Boyd Bustamante Other [employer] Other Start: 07-02-2022 Telephone encounter Boyd Bustamante [facility] Start: 07-01-2022 End: 07-01-2022 ambulatory Boyd Bustamante Other [employer] Other Start: 07-01-2022 Patient encounter procedure Boyd Bustamante [facility] Start: 09-18-2020 Refill Leonora Saunders MD Work Phone: [facility] Comment on above: Medication Refill Start: 06-14-2020 End: 06-14-2020 Orders Only Tessy Ashly Gomez Work Phone: [facility] Start: 02-03-2020 End: 02-07-2020 Patient encounter procedure NIA JORGE LUIS [facility] Start: 01-09-2020 End: 01-09-2020 Patient encounter procedure Shelia Beckett Work Phone: [facility] Start: 01-06-2020 End: 01-10-2020 Patient encounter procedure LEONORA SAUNDERS [facility] Start: 01-06-2020 End: 01-07-2020 Patient encounter procedure LEONORA SAUNDERS [facility] Start: 01-06-2020 End: 01-06-2020 Office outpatient visit 15 minutes Leonora Saunders Work Phone: [facility] Comment on above: PAF (paroxysmal atri al fibrillation) (HCC) (Primary Dx); retirement current use of 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 drug; 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, unspecified type Start: 01-06-2020 End: 01-06-2020 Subsequent hospital visit by physician Leonora Saunders Work Phone: [facility] Comment on above: retirement current us e of 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 drug; PAF (paroxysmal atrial fibrillation) (HCC) Start: 09-06-2019 End: 09-06-2019 Patient encounter procedure Leonora Saunders Work Phone: [facility] Start: 04-19-2019 End: 04-19-2019 Patient encounter procedure Leonora Saunders Work Phone: [facility] Start: 03-09-2019 End: 03-13-2019 [facility] Start: 03-07-2019 End: 03-07-2019 Patient encounter procedure Leonora Saunders Work Phone: [facility] Start: 09-29-2018 End: 09-29-2018 Office outpatient visit 25 minutes Leonora Saunders Work Phone: [facility] Comment on above: PAF (paroxysmal atri al fibrillation) (HCC) (Primary Dx); 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, unspecified type; 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 determiner 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 of 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 drug Start: 09-28-2018 End: 09-28-2018 Patient encounter procedure Leonora Saunders Work Phone: [facility] Start: 08-11-2018 End: 08-11-2018 Patient encounter procedure Leonora Saunders Work Phone: [facility] Start: 07-05-2018 End: 07-05-2018 Patient encounter procedure Leonora Saunders Work Phone: [facility] Start: 07-02-2018 End: 07-02-2018 Evaluation and management of inpatient Tito Snell Work Phone: [facility] Emergency Department Start: 04-09-2018 End: 04-09-2018 Patient encounter procedure Leonora Saunders Work Phone: [facility] Start: 04-05-2018 End: 04-05-2018 Patient encounter Leonora Saunders Work Phone: [facility] Start: 12-30-2017 End: 12-30-2017 Patient encounter Leonora Saunders Work Phone: [facility] Start: 08-11-2017 Patient encounter Leonora Saunders Work Phone: [facility] Start: 07-08-2017 End: 07-08-2017 Ambulatory Leonora Saunders Work Phone: [facility] Draw Site Start: 06-17-2017 Ambulatory Leonora Saunders Work Phone: [facility] Start: 04-08-2017 Office outpatient vi sit 15 minutes Leonora Saunders Work Phone: [facility] Start: 04-08-2017 End: 04-08-2017 Ambulatory Leonora Saunders Work Phone: [facility] Start: 03-24-2017 Ambulatory Leonora Saunders Work Phone: [facility] Start: 03-13-2017 Patient encounter Leonora Saunders Work Phone: [facility] Start: 01-09-2017 End: 01-09-2017 Patient encounter procedure Leonora Saunders Work Phone: [facility] Start: 12-01-2016 End: 12-01-2016 Patient encounter procedure Leonora Saunders Work Phone: [facility] Procedures Date Procedure [...] blood count with white cell differential, manual Titolana Snell Work Phone: Start: 07-02-2018 HAYWOOD TOP Tito All en Rimer Work Phone: Start: 07-02-2018 LIGHT BLUE TOP Tito Garcia [employer] Work Phone: Start: 07-02-2018 LIGHT GREEN TOP Tito Tay[employer] Work Phone: Start: 07-02-2018 PINK TOP Tito All en Rimer Work Phone: Start: 07-02-2018 RAINBOW DRAW Tito All en Rimer Work Phone: Removal of suture Boyd Bra un Other Removal of suture Boyd Bra un Other Plan of Treatment Date Care Activity Detail Author Start: 05-03-2031 Tetanus vaccination Tetanus: Every 1 0yrs [facility] Start: 01-23-2022 Influenza vaccination Sequenti al Influenza Vaccine (#1) [facility] Start: 01-05-2021 CLASS III : OFFICE VISIT CLASS III : OFFICE VISIT [facility] Start: 08-02-2020 Thyroid stimulating hormone measurement Class III : TSH [facility] Start: 07-08-2020 Alanine aminotransfe rase measurement CLASS III : ALT [facility] Start: 03-09-2020 CLASS III : EKG CLASS III : EKG [facility] Start: 02-10-2020 History and physical examination, annual for health maintenance Wellness Visit [facility] Start: 01-24-2020 Influenza vaccinatio n given Sequential Influenza Vaccine (#1) [facility] Start: 09-30-2019 CLASS III : OFFICE VISIT CLASS III : OFFICE VISIT [facility] Start: 09-28-2019 CLASS III : EKG CLASS III : EKG [facility] Start: 09-08-2019 CLASS III : ALT CLASS III : ALT [facility] Start: 09-08-2019 CLASS III : AST CLASS III : AST [facility] Start: 09-08-2019 CLASS III : TSH CLASS III : TSH [facility] Start: 03-30-2019 CLASS III : ALT CLASS III : ALT [facility] Start: 03-30-2019 CLASS III : AST CLASS III : AST [facility] Start: 03-30-2019 CLASS III : TSH CLASS III : TSH [facility] Start: 03-04-2019 CLASS III : EKG CLASS III : EKG [facility] Start: 01-23-2019 Influenza vaccinatio n given [facility] Start: 09-29-2018 End: 09-29-[address] [facility] Start: 09-02-2018 CLASS III : ALT CLASS III : ALT [facility] Start: 09-02-2018 CLASS III : AST CLASS III : AST [facility] Start: 09-02-2018 CLASS III : TSH CLASS III : TSH [facility] Start: 07-08-2018 CLASS III : EKG CLASS III : EKG [facility] Start: 04-08-2018 CLASS III : OFFICE VISIT CLASS III : OFFICE VISIT [employer] Phone: Start: 01-23-2018 Influenza vaccination [facility] Start: 01-23-2018 Influenza vaccinatio n given SEQUENTIAL INFLUENZA VACCINE (#1) [facility] Start: 01-06-2018 CLASS III : EKG CLASS III : EKG [facility] [employer] Phone: Start: 01-05-2018 CLASS III : ALT CLASS III : ALT [facility] Start: 01-05-2018 CLASS III : AST CLASS III : AST [facility] Start: 01-05-2018 CLASS III : TSH CLASS III : TSH [facility] Start: 10-06-2017 CLASS III : ALT CLASS III : ALT [facility] Phone: Start: 10-06-2017 CLASS III : AST CLASS III : AST [facility] Phone: Start: 10-06-2017 CLASS III : TSH CLASS III : TSH [facility] [employer] Phone: Start: 07-09-2017 CLASS III : ALT CLASS III : ALT [facility] [employer] Phone: Start: 07-09-2017 CLASS III : AST CLASS III : AST [facility] [employer] Phone: Start: 07-09-2017 CLASS III : TSH CLASS III : TSH [facility] [employer] Phone: Start: 04-04-2017 CLASS III : EKG CLASS III : EKG [facility] Phone: Start: 04-02-2017 CLASS III : OFFICE VISIT CLASS III : OFFICE VISIT [employer] Phone: Start: 01-23-2017 Influenza vaccination SEQUENTI AL INFLUENZA VACCINE (#1) [employer] Work Phone: Start: 01-23-2017 SEQUENTIAL INFLUENZA VACCINE (#1) SEQUENTIAL INFLUENZA VACCINE (#1) [employer] Phone: Start: 09-30-2016 CLASS III : ALT CLASS III : ALT [facility] Phone: Start: 09-30-2016 CLASS III : AST CLASS III : AST [facility] Work Phone: Start: 09-30-2016 CLASS III : TSH CLASS III : TSH [facility] Work Phone: Start: 11-15-2015 Pneumococcal vaccination PNEUM OCOCCAL VACCINE AGE 65+ (2 of 2 - PPSV23) [facility] Start: 11-15-2015 Pneumococcal Vaccine : Age 65+ (2 - PPSV23 if available, else PCV20) Pneumococcal Vaccine: Age 65+ (2 - PPSV23 if available, else PCV20) [facility] Start: 2005 Fall risk assessment [facility] Start: 2005 Pneumococcal vaccination PNEUM OCOCCAL VACCINE AGE 65+ (1 of 2 - PCV13) [facility] Work Phone: Start: 2005 PNEUMOCOCCAL VACCINE AGE 65+ (1 of 2 - PCV13) PNEUMOCOCCAL VACCINE AGE 65+ (1 of 2 - PCV13) [facility] Work Phone: Start: 2000 Zoster vacc, sc ZOSTER VACCINE [facility] Work Phone: Start: 1990 Administration of he rpes zoster vaccine ZOSTER VACCINES (1 of 2) [facility] Start: 1990 ZOSTER VACCINES (1 of 2) ZOSTE R VACCINES (1 of 2) [facility] Start: 12-18-1959 Administration of he rpes zoster vaccine Zoster Vaccines (1 of 2) [facility] Start: 1958 Hepatitis C antibody , confirmatory test Hepatitis C Screening [facility] Start: 1952 Adolescent depressio n screening assessment Depression Screening (PHQ9) [facility] Start: 1952 Depression screening using PHQ-9 (Patient Health Questionnaire 9) score Depression Screening (PHQ-2/9) [facility] Start: 12-18-1943 History and physical examination, annual for health maintenance Wellness Visit [facility] Start: 06-19-1941 COVID-19 Vaccine (#1) COVID-19 Vacci ne (#1) [facility] Start: 1940 DEXA SCAN DEXA SCAN [facility] Work Phone: Start: 1940 Fall risk assessment Falls Risk Asse ssment [facility] Start: 1940 Protein mass conc Mammogram [facility] Start: 1940 Screening mammography Mammogram [facility] Start: 1940 TETANUS EVERY 10 YR TETANUS EVERY 10 YR [facility] Work Phone: Start: 1940 End: 1940 Screening for osteoporosis DEXA SCAN [facility] Start: 1940 End: 1940 Tetanus vaccination [facility] Work Phone: End: 07-02-2018 Bacteria identified Aer cx Nom (Unsp spec) Urine Aerobic Culture Routine Once for 1 Occurrences starting 07/02/2018 until 07/02/2018 [facility] Comment on above: Once for 1 Occurrenc es starting 07/02/2018 until 07/02/2018 Bacteria identified Aer cx Nom (Unsp spec) Urine Aerobic Culture Routine 07/02/2018 8:08 AM EST [facility] X-ray of chest and abdomen XR Ab domen 2 Views With Chest 1 View STAT 07/02/2018 6:50 AM EST [facility] Payers Date Payer Category Payer Medicare [id number] 2014 Medicare [id number] 2014 [place] [id number] 2014-Present [id number] 2014 Medicare [place]PP[place] [id number] 2014-Present [phone] [address] [place] [address] [id number] 1959 Medicare [id number] 1940 Unknown [id number] 1940 Unknown [id number] 1940 Unknown [id number] 1940 Unknown [id number] 1940 Unknown [id number] 1940 Unknown [id number] 1940 Unknown [id number] 1940 Unknown [id number] 1940 Unknown [id number] 1940 Unknown [id number] Social History Date Type Detail Facility Start: 04-08-2017 End: 01-06-2020 Tobacco smoking status OKIS Former smoker [facility] Work Phone: End: 05-25-1969 History of tobacco use Current smoker [facility] Work Phone: Start: 1940 Sex Assigned At Not on file [employer] Work Phone: Start: 07-02-2018 End: 01-06-2020 Alcohol intake Current non-drinker of alcohol (finding) [facility] Exposure to SARS-CoV-2 (event) Not sure [facility] Start: 04-08-2017 End: 01-06-2020 Tobacco use and exposure Never used [facility] End: 05-25-1969 History of tobacco use Cigarette Smoker [facility] Sex Assigned At Sex [facility] [employer] Other Clinical Notes 09-18-2020 to 07-14-2023 Note Date & Type Note Facility 07-14-2023 Note [facility] Consult Note Reason for visit: Afib, s/p DCCV on amiodarone 05/11/23 07/14/23 She feesl tired and her pulse check reveals AF. Device check performed on 06/16/2023 shows significant amount of A-fib with an 86% burden. recent echocardiogram done on 06/15/2023 reveals ejection fraction of 45% No significant episodes of rapid ventricular rate based on 24hr count on 06/16/23 05/26/23: Patient here for follow up s/p [...] thyroid issues. She had previous seen a tile mechanic helper and an outlying facility and recently moved here about 2 years ago and has not established with a tile mechanic helper. She was seen by Gracia SOSA and subsequently started on anticoagulation with Eliquis. previously she had afib ablation with [facility] before 2009 had for unclear reasons was not placed on anticoagulation when he saw her. she got admitted to [facility] on 02/06/2023 following a fall. versus attributed to be a mechanical fall as she tripped on the corner curb. no loss of consciousness. CT of the head was negative for any hemorrhage. she had some lacerations which were sutured. She had a recent echocardiogram done which showed cardiomyopathy with a EF of 35 to 40%. [id number] at least 6 for age, gender, hypertension, TIA -not anticoagulated ECG 02/17/23 Afib with RVR 02/06/2023 shows atrial fibrillation 12/03/2022 A-fib 100bpm 06/11/2020 sinus rhythm Echocardiogram 02/02/2023 PMH: No past medical history on file. PSH: No past surgical history on file. SH: Social Determinants of Health Tobacco Use: Medium Risk (05/26/2023) Patient History Smoking Tobacco Use: Former Smokeless Tobacco Use: Never Passive Exposure: Not on file Alcohol Use: Not on file Financial Resource Strain: Low Risk (04/10/2023) Overall Financial Resource Strain (CARDIA) Difficulty of Paying Living Expenses: Not hard at all Food Insecurity: Not on file (04/10/2023) Transportation Needs: Not on file (04/10/2023) Physical Activity: Not on file Stress: Not on file Social Connections: Not on file Intimate Partner Violence: Not on file (04/10/2023) Depression: Not on file Housing Stability: Not on file (04/10/2023) Utilities: Not on file Allergies: Allergies Allergen Reactions Adhesive Paper Tape is ok Sulfa (Sulfonamide Antibiotics) Hives Weight: No weight available Visit Vitals BP 122/62 Pulse 54 SpO2 100% OB Status Postmenopausal Smoking Status Former Meds: Current Outpatient Medications on File Prior to Visit Medication Sig Dispense Refill amiodarone (Pacerone) 200 mg tablet Take 1 tablet (200 mg) by mouth once daily as directed. 90 tablet 1 amLODIPine (Norvasc) 10 mg tablet Take 10 mg by mouth in the morning. apixaban (Eliquis) 5 mg tablet TAKE 1 TABLET (5 MG) BY MOUTH IN THE MORNING AND AT BEDTIME. DO NOT START BEFORE APRIL 14, 2023. 60 tablet 1 atorvastatin (Lipitor) 20 mg tablet Take 20 [...] CR (Klor-Con) 8 mEq ER tablet Take 16 mEq by mouth in the morning and at bedtime. Synthroid 100 mcg tablet Take 100 mcg by mouth in the morning. vxjppqh-gjok-opqrn-oreg-capryl 100 mg-150 mg- 50 mg-150 mg capsule Take 1 capsule by mouth in the morning. venlafaxine XR (Effexor-XR (more content not included)... [facility] 05-26-2023 Note [facility] Consult Note Reason [...] thyroid issues. She had previous seen a tile mechanic helper and an outlying facility and recently moved here about 2 years ago and has not established with a tile mechanic helper. She was seen by Gracia SSOA and subsequently started on anticoagulation with Eliquis. previously she had afib ablation with [facility] before 2009 had for unclear reasons was not placed on anticoagulation when he saw her. she got admitted to [facility] on 02/06/2023 following a fall. versus attributed to be a mechanical fall as she tripped on the corner curb. no loss of consciousness. CT of the head was negative for any hemorrhage. she had some lacerations which were sutured. She had a recent echocardiogram done which showed cardiomyopathy with a EF of 35 to 40%. [id number] at least 6 for age, gender, hypertension, [...] Take 3 capsules (more content not included)... [facility] 05-26-2023 Note Patient here for fol low up cardioversion. Review of Systems Constitutional: Positive for malaise/fatigue. Hematologic/Lymphatic: Bruises/bleeds easily. All other systems reviewed and are negative. [facility] 05-11-2023 Note Patient: Debra engel Procedure Information Date/Time: 05/11/23 1200 Procedure: Cardioversion Location: [facility] / [facility] (Cath) Providers: Param Padron MD Clinical information reviewed: Allergies Meds OB Status Physical Exam Airway Mallampati: II TM distance: >3 FB Neck ROM: full Cardiovascular Dental Pulmonary Abdominal Anesthesia Plan ASA 2 CSE Anesthetic plan and risks discussed with patient. Use of blood products discussed with patient who. Additional Equipment Requests [facility] 04-23-2023 Note Patient seen for wou nd [...] weeks. 5. No driving for 1 month. [facility] 04-23-2023 Note Patient here for wou nd check s/p device insertion with Dr. Forrest on 04/10/2023. [facility] 04-10-2023 Note Indications for perm anent pacemaker [...] of the upper extremity Jovanny Forrest M.D. [facility] [employer] Machines[employer] controller and Pediatrics Director: Cardiac Electrophysiology Program [facility] 04-10-2023 Note Patient: Debra engel Procedure Information Date/Time: 04/10/23 3746 Procedure: Implant PPM Location: [facility] EP / [facility] (Cath) Providers: Jovanny Forrest [...] discussed with patient who. Additional Equipment Requests [facility] 04-10-2023 Note Patient: Debra engel Procedure Information Date/Time: 04/10/23 232 Procedure: Implant PPM Location: [facility] EP / [facility] (Cath) Providers: Jovanny Forrest MD Clinical information reviewed: Allergies Physical Exam Airway Mallampati: I Cardiovascular - normal exam Dental - normal exam Pulmonary - normal exam Abdominal - normal exam Anesthesia Plan Additional Equipment Requests [facility] 03-27-2023 Note [facility] Electrophysiology Consult Note Reason for visit: Afib [...] thyroid issues. She had previous seen a tile mechanic helper and an outlying facility and recently moved here about 2 years ago and has not established with a tile mechanic helper. She was seen by Gracia SOSA and subsequently started on anticoagulation with Eliquis. previously she had afib ablation with [facility] before 2009 had for unclear reasons was not placed on anticoagulation when he saw her. she got admitted to [facility] on 02/06/2023 following a fall. versus attributed to be a mechanical fall as she tripped on the corner curb. no loss of consciousness. CT of the head was negative for any hemorrhage. she had some lacerations which were sutured. She had a recent echocardiogram done which showed cardiomyopathy with a EF of 35 to 40%. [id number] at least 6 for age, gender, hypertension, [...] 100 mcg by mouth in the morning. ixhuvvs-zhts-pjruo-oreg-capryl 100 mg-150 mg- 50 mg-150 mg capsule Take 1 capsule by mouth in the morning. venlafaxine XR (Effexor-XR) 75 mg 24 hr capsule Take 75 mg by mouth in the morning, at noon, and at bedtime. vit C,U-Im-wyioy-lutein-zeaxan (PreserVision AREDS-2) 250-90-40-1 mg capsule Take 2 [...] Exam: Constitutional Ge (more content not included)... [facility] 02-17-2023 Note [facility] Consult Note Reason for visit: Afib HPI: Debra García is a 82 y.o. year old with past medical history of htn, GERD, sleep apnea, mitral valve prolapse, A-fib, c-diff, TIA, HLD, it is noted in her H&P per PCP she has been on a medication for afib but it caused her thyroid issues. She had previous seen a tile mechanic helper and an outlying facility and recently moved here about 2 years ago and has not established with a tile mechanic helper. She was seen by Gracia SOSA and subsequently started on anticoagulation with Eliquis. previously she had afib ablation with [facility] before 2009 had for unclear reasons was not placed on anticoagulation when he saw her. she got admitted to [facility] on 02/06/2023 following a fall. versus attributed to be a mechanical fall as she tripped on the corner curb. no loss of consciousness. CT of the head was negative for any hemorrhage. she had some lacerations which were sutured. She had a recent echocardiogram done which showed cardiomyopathy with a EF of 35 to 40%. [id number] at least 6 for age, gender, hypertension, [...] normal upstroke, n (more content not included)... [facility] 02-17-2023 Evaluation note Encounter Date Diagnosis Assessment Notes Jan, Visit for suture removal (ICD-10 - Z48.02) 3 sutures removed from R 3rd finger - tolerated well. Jan, Atrial fibrillation (ICD-10 - I48.91) BP low today. Pt states she just left Dr. Garay's office and she is scheduled for a heart cath. [facility] [facility] Other 07-22-2023 Note- noted as history per PCP - [facility]- stable, continue medicationsUnK[facility]07-22-2023 Note- [id number] at least 6 for age, gender, hypertension, [...] is asymptomatic I will aim for rate controlUnKettering Health [facility]07-12-2023 NotePatient is here today to establish care regarding atrial fibrillation Review of Systems Constitutional: Positive for malaise/fatigue. Cardiovascular: Positive for irregular heartbeat and palpitations. Respiratory: Positive for cough, shortness of breath and snoring. All other systems reviewed and are negative.[facility] 12-03-2022 NoteUT Electrophysiology Consult Note Reason for [...] thyroid issues. She had previous seen a tile mechanic helper and an outlying facility and recently moved here about 2 years ago and has not established with a tile mechanic helper. She is not anticoagulated She supposedly had afib ablation with [facility] before 2009 she has had no complaints of chest pain, shortness of breath, OREILLY, LE edema. She had referral sent back in June per PCP [id number] at least 6 for age, gender, hypertension, [...] rales, no rhonchi Cardiovascu (more content not included)...[facility] 07-01-2022 Evaluation note* Encounter Date Diagnosis Assessment [...] for Sleep study retitration and consultation with [facility]. Jun, Pain in right foot (ICD-10 - M79.671) Jun, Pain in left foot (ICD-10 - M79.672) Jun, Allergic rhinitis, unspecified seasonality, unspecified trigger (ICD-10 - J30.9) [employer] Other 04-27-2021 Telephone encounter Note* Telephone Encounter - Leonora Saunders - 09/18/2020 9:16 AM EDT Amiodarone was discontinued, last notes states the patient moved and has established care elsewhere. [id number] Miscellaneous Notes* Telephone Encounter - Leonora Saunders - 09/18/2020 9:16 AM EDT Amiodarone was discontinued, last notes states the patient moved and has established care elsewhere. documented in this encounterMarylandHealthEvaluation note* Diagnosis PAF (paroxysmal atrial fibrillation) (HCC) Atrial fibrillation documented in this encounter [facility] noteNo InformationNortExcela [facility] [employer] Other History general Narrative - Reported* Type [...] History SHOULDER SURGERY 2010 Surgical History CHOLECYSTECTOMY 2008 Surgical History APPENDECTOMY 1970 Surgical History HYSTERECTOMY 1970 Hospitalization History SEE SURGICAL HX [facility] [employer] Other Assessments Diagnosis retirement current use of ant iarrhythmic drug Diagnosis retirement current use of ant iarrhythmic drug Diagnosis salvage determiner current use of ant iarrhythmic drug Diagnosis PAF (paroxysmal atrial fibri llation) (HCC) - Primary Atrial fibrillation salvage determiner current use of ant iarrhythmic drug Paroxysmal atrial fibrillati on (HCC) 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, unspecified ty pe Obesity, unspecified classif ication, unspecified obesity type, unspecified whether serious comorbidity present Diagnosis Fecal impaction (HCC) Other impaction of intestine Diagnosis PAF (paroxysmal atrial fibrillation) (HCC)- Primary Atrial fibrillation 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, unspecified type salvage determiner current use of 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 drug Diagnosis retirement current use of 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 drug PAF (paroxysmal atrial fibrillation) (HCC) Atrial fibrillation Diagnosis PAF (paroxysmal atrial fibrillation) (HCC) Atrial fibrillation salvage determiner current use of 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 drug 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, unspecified [...] are in the chart, copy placed in [facility] bin.) Pt currently has recall for O.V [...] - 01/09/2017 10:52 AM EDT Rec'd from [facility] pt's Class III labwork dated 01/06/17 [...] Continue class 3 f/u per protocol. * Nadiya Toro MA - 09/28/2018 8:50 AM EDT Rec'd message dated 09/28/18 via in-basket from staff/Fay, per patient's chart Class III lab & CXR results dated 09/27/18. Class III episode updated, routed to CALEB Saunders to review. Pt currently scheduled for O.V. 09/29/18 @ 2:40 w/Dr. Sabino Saunders. documented in this encounter* Leonora Saunders MD - 09/29/2018 2:38 PM EDT [facility] [address] [facility] [address] [facility][1] [id number] Office Visit Debra García (77 y.o. ( 1940) female) Date of service - 09/29/18 Primary healthcare providers: Nia Johnson MD (Family); Nia Johnson* (Referring)? ASSESSMENT: 1. PAF (paroxysmal atrial fibrillation) (HCC) Stable. No clinical recurrence. Continue medical management. Follow-up EP clinic 1 year. 2. retirement current use of 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 drug. Stable. Labs [...] rhythm, within normal limits Document generated by [employer] voice recognition dictation system to expedite reporting. Please excuse any syntax, spelling or grammatical errors caused by [employer] dictation. Medication list reviewed on 09/29/18 2:38 [...] on 09/29/18 2:38 PM Leonora Saunders MD, [facility], [facility]. Cardiac Electrophysiology, Cardiovascular Disease. [facility]. documented in this encounter* Nadiya Toro MA - 09/28/2018 5:13 PM EDT On 09/28/18 /Sabino Saunders reviewed patient's lab results dated 09/27/18. See closed Class III episode for MD documentation. documented in this encounter* Moon Li LPN - 03/07/2019 12:21 PM EDT [...] reminder letter mailed with a list of [facility] lab facilities with a note instructing pt to call the facility prior to going to make sure it is open. documented in this encounter* Shelia Beckett PharmD - 01/13/2020 12:38 PM EDT Several attempts to call patient and Candice Barnett RN, was able to connect with her today and instructed patient of [facility]'s recs. See telephone encounter dated 01/12/20. * [...] Beckett PharmD - 01/09/2020 8:45 AM EDT Debra García obtained amiodarone monitoring labs per protocol. [...] - 01/06/2020 10:40 AM EDT [facility] [address] [facility] [address] [facility] [phone] Cardiac Electrophysiology Clinic Office Visit Debra García (79 y.o. ( 1940) female) Date of service - 01/06/20 Primary healthcare providers: Nia Johnson MD (Family); No ref. provider found (Referring)? ASSESSMENT: 1. PAF (paroxysmal atrial fibrillation) (HCC) Stable. No clinical recurrence. Continue medical management. 2. retirement current use of 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 drug. Stable. Continue [...] rhythm. No acute changes. Document generated by [employer] voice recognition dictation system to expedite reporting. Please excuse any syntax, spelling or grammatical errors caused by [employer] dictation. Medication list reviewed on 01/06/20 10:40 [...] on 01/06/20 10:40 AM Leonora Saunders MD, [facility], [facility]. Cardiac Electrophysiology, Cardiovascular Disease. [facility]. documented in this [...] be sent through Care Everywhere. * Constipation (Divehi) in this encounter Advance Directives No Advanced Directives Records FoundDocuments on File Type Date Recorded Patient Blueprint Cutter Expl anation Advance Directives and Livin g Will 07/02/2018 5:55 AM Documents on File Type Date Recorded Patient Blueprint Cutter Expl anation Advance Directives and Livin g Will 01/06/2020 9:39 AM Reason for Referral Status Reason Specialty Diagnoses / Procedures Referred By Contact Referred To Contact Pending Review Cardiology Diagnoses PAF (paroxysmal atrial fibrillation) ([facility]) Procedures ECG 12 Lead Leonora Saunders MD [facility] [place] [place] [address] Reason 08/15/22 [facility] Card iology at [facility]. No records here from [place] Manager Machine. Diagnosis 1 Atrial fibrillation (I48.91) Referral Organization [facility] Referring Provider First Name Boyd Referring Provider Last Name Dianna Referring Provider Specialty Family [facility] Referred Organization Unknown Facility Referred Provider Carl Kuhn Referred Provider Specialty Cardiology Referral Priority Routine Referral Appointment Date 2022-08-15 General Notes Cinthia Jacobson 10:24:39 AM >received today, no notes to send with referral. I called patient and left detailed message to see if she can provide me the doctors name she saw in [place]. will follow back up Cinthia Jacobson 07/03/2022 08:27:02 AM >referral faxed, but still waiting on a call back from patient about old records Cinthia Jacobson 07/10/2022 09:19:20 AM >faxed first attempt letter Clinical Notes F: [id number] GERARD Foster Reason *FU 07/30 CALL [facility] - callouses and pain Diagnosis 1 Pain in right foot ( M79.671) Referral Organization [facility] Crystal klein Referring Provider First Name Boyd Referring Provider Last Name Dianna Referring Provider Specialty Family [facility] Referred Organization [facility] Referred Provider Uziel Camarena Referred Address ,[place], [place],[address] Referred Provider Specialty Podiatry - S urgical Chiropody Referral Priority Routine General Notes Cinthia Jacobson 10:46:32 AM >received today, attachments made, notes locked, and referral faxed Cinthia Jacobson 07/09/2022 06:48:57 AM >faxed first attempt letter Cinthia Jacobson 07/16/2022 08:32:45 AM >faxed second attempt letter Cinthia Jacobson 07/23/2022 09:30:19 AM >faxed third attempt letter. will call next Clinical Notes [id number] Summary Purpose Family History No Family History [...] Associated Order(s): ED CONSULT TO MEDICAL - WOMEN'S STUDIES LECTURER COMPLEX DISCHARGE Date: 07/02/2018 Time: 8:21 AM [...] home. Pass provided and pt taken to [facility]. Discharge Readiness Expected Discharge Date: 07/02/18 [facility] Disposition D/C Disposition: Home Agency/Destination: Home Transportation [...] section and content) DATE CREATED AUTHOR 10/16/2018 [facility] DATE CREATED AUTHOR AUTHOR'S ORGANIZ ATION 03/25/2019 [facility] DATE CREATED AUTHOR AUTHOR'S ORGANIZ ATION 02/07/2020 [facility] DATE CREATED AUTHOR AUTHOR'S ORGANIZ ATION 02/07/2020 [facility] DATE CREATED AUTHOR AUTHOR'S ORGANIZ ATION 10/01/2022 [facility] DATE CREATED AUTHOR AUTHOR'S ORGANIZ ATION 07/15/2023 [facility] Care Teams (unrecognized sec tion and content) Valve Steamer Relationship Specialty Start Date End Date Nia Johnson MD PCP - General 06/06/11 Leonora Saunders MD Manager [facility] Cardiology 02/20/15 FOR RECORDS PERTAINING TO PATIENTS [...] BE BASED ON THE PRIMARY CLINICAL RECORDS. [facility] provides no warranty or guarantee of the accuracy or completeness of information in this document.
[2023-07-17 15:04] LABS: Anion Gap 11.6; BUN Creatinine Ratio 15.5; Chloride 105 mmol/L (98-107); Estimated GFR (African America >60 (>=60); Estimated GFR (Non-African Ame 51 (>=60); Glucose 117 mg/dL (74-106); Potassium 4.6 mmol/L (3.5-5.1); Sodium 142 mmol/L (136-145)
[2023-07-17 15:31] LABS: Eosinophils Absolute Auto 0.1 10^3/uL (0.0-0.7); Eosinophils Percent Auto 1.2 % (0.9-7.0); Hematocrit 39.9 % (36.0-48.0); Hemoglobin 12.8 g/dL (12.0-16.0); Immature Granulocytes Abs Auto 0.01 10^3/uL (0.00-0.03); Immature Granulocytes Pct Auto 0.2 % (0.0-0.5); Lymphocytes Absolute Auto 0.7 10^3/uL (1.2-3.8); Lymphocytes Percent Auto 17.1 % (20.5-60.0); Mean Corpuscular HGB Conc 32.1 g/dL (29.9-35.2); Mean Corpuscular Hemoglobin 31.5 pg (26.7-34.0); Mean Corpuscular Volume 98.3 fL (81.0-99.0); Mean Platelet Volume 9.9 fL (9.5-13.5); Monocytes Absolute Auto 0.4 10^3/uL (0.3-0.8); Neutrophils Percent Auto 71.5 % (43.0-75.0); Platelet Count 188 10^3/uL (150-450); Red Blood Count 4.06 10^6/uL (4.20-5.40); White Blood Count 4.2 10^3/uL (4.0-11.0)
== END 2023-07-17 14:41 | disposition home or self-care (01) ==
LOC: LAB 14:44
PROVIDERS: PCP Family Medicine; Visit Provider Internal Medicine Cardiovascular Disease
DX: Z01.818 Encounter for other preprocedural examination (principal)
CPT/HCPCS: 36415; 80048; 85025

== ENCOUNTER 2023-09-29 15:20 | Outpatient (OUT) | payer MEDICARE, SELFPAY | END 2023-09-29 15:21 | disposition home or self-care (01) | LOC: LAB 15:21 | PROVIDERS: PCP Family Medicine; Visit Provider Nurse Practitioner Family | DX: R53.83 Other fatigue (principal); E55.9 Vitamin D deficiency, unspecified | CPT/HCPCS: 36415; 82306; 82607; 84443 ==

== ENCOUNTER 2023-11-02 13:09 | Outpatient (RCR) | payer MEDICARE, SELFPAY | END 2023-12-04 16:15 | disposition home or self-care (01) | LOC: PT 13:09 | PROVIDERS: PCP Family Medicine; Visit Provider Family Medicine | DX: M54.50 Low back pain, unspecified (principal); R53.1 Weakness; R26.81 Unsteadiness on feet; R51.9 Headache, unspecified | CPT/HCPCS: 97110; 97112; 97161 ==

== ENCOUNTER 2024-01-06 16:26 | Outpatient (OUT) | payer MEDICARE, SELFPAY ==
[2024-01-06 17:05] LABS: Basophils Percent Auto 0.7 % (0.2-2.0); Eosinophils Absolute Auto 0.1 10^3/uL (0.0-0.7); Eosinophils Percent Auto 2.5 % (0.9-7.0); Hematocrit 36.6 % (36.0-48.0); Immature Granulocytes Abs Auto 0.01 10^3/uL (0.00-0.03); Immature Granulocytes Pct Auto 0.2 % (0.0-0.5); Lymphocytes Absolute Auto 1.1 10^3/uL (1.2-3.8); Lymphocytes Percent Auto 25.5 % (20.5-60.0); Mean Corpuscular HGB Conc 32.8 g/dL (29.9-35.2); Mean Corpuscular Hemoglobin 32.5 pg (26.7-34.0); Mean Corpuscular Volume 99.2 fL (81.0-99.0); Mean Platelet Volume 10.2 fL (9.5-13.5); Monocytes Absolute Auto 0.3 10^3/uL (0.3-0.8); Monocytes Percent Auto 7.4 % (1.7-12.0); Neutrophils Absolute Auto 2.8 10^3/uL (1.4-6.5); Neutrophils Percent Auto 63.7 % (43.0-75.0); Platelet Count 241 10^3/uL (150-450); Red Blood Count 3.69 10^6/uL (4.20-5.40); Red Cell Distribution Width 14.6 % (11.0-15.0); White Blood Count 4.3 10^3/uL (4.0-11.0)
[2024-01-06 17:31] LABS: Anion Gap 12.1; BUN Creatinine Ratio 14.8; Calcium 9.1 mg/dL (8.5-10.1); Carbon Dioxide 28.8 mmol/L (21.0-32.0); Chloride 104 mmol/L (98-107); Estimated GFR (African America 45 (>=60); Estimated GFR (Non-African Ame 37 (>=60); Glucose 86 mg/dL (74-106); Potassium 4.9 mmol/L (3.5-5.1); Sodium 140 mmol/L (136-145)
== END 2024-01-06 16:27 | disposition home or self-care (01) ==
LOC: LAB 16:27
PROVIDERS: PCP Family Medicine; Visit Provider Internal Medicine Cardiovascular Disease
DX: I48.11 Longstanding persistent atrial fibrillation (principal)
CPT/HCPCS: 36415; 80048; 85025

== ENCOUNTER 2024-01-14 15:05 | Outpatient (OUT) | payer MEDICARE, SELFPAY ==
--- OUTSIDE RECORDS SUMMARY | 2024-01-14 15:13 | XMS_ITS | CCD ---
Author Organization [facility] Care Team Providers Care Deliverer Food Name Role Phone Nia Alcaraz Unavailable Leonora Saunders Unavailable Unavailabl e Unavailable Primary Care Provider Griselda Alcaraz Niacyndi Raya Primary Care Provider Leonora Saunders Unavailable Nia Alcaraz Primary Care Provider Leonora Saunders Unavailable [phone] Leonora Saunders Unavailable [facility] Unava ilable LEONORA SAUNDERS Attending Unavailabl e LEONORA SAUNDERS Referring Unavailismael e [facility] Care Unava ilable LEONORA SAUNDERS Admitting Unavailabl e LEONORA SAUNDERS Referring Unavailabl e LISSA [facility] Primary Care Unava ilable [facility] Unava ilable LEONORA SAUNDERS Attending Unavailismael e LISSA [facility] Unava ilable LEONORA SAUNDERS Admitting Unavailabl e LEONORA SAUNDERS [facility] Leon[facility] Saunders Unavailable Unavailismael e Lissa SCHAEFFER, [facility] Provi mervin Leonora Saunders MD Unavailable [phone] Boyd Bustamante Unavailable DIANNA, DR BOYD Miller [...] Unavailable BUSTAMANTE, DR BOYD Miller Admitting Unavailable GIANNETTO, NIA Attending Unavailable GIANNETTO, NIA Attending Unavailable GIANNETTO, NIA Attending Unavailable GIANNETTO, NIA Attending Unavailable GIANNETTO, NIA Attending Unavailable UZIEL OCONNOR Attending Unavailable KIMBER, PARAM Admitting Unavailable KIMBER, PARAM Attending Unavailable BURKET, GROVER Admitting Unavailable BURKET, GROVER Attending Unavailable BARAZI, GRACIA Referring Unavailable HAY, BECKY Referring Unavailable SAVANNAH, JOVANNY Admitting Unavailable SAVANNAH, JOVANNY Attending Unavailable KIMBER, PARAM Referring Unavailable KIMBER, PARAM Attending Unavailable KIMBER, PARAM Attending Unavailable KIMBER, PARAM Referring Unavailable BARAZI, GRACIA Attending Unavailable WITHERELL, ALEC Attending Unavailable BARAZI, GRACIA Attending Unavailable KIMBER, PARAM Attending Unavailable ABDIRIZAKJUS Attending Unavailable KIMBER, PARAM Referring Unavailable KIMBER, PARAM Referring Unavailable SAVANNAH, JOVANNY Referring Unavailable BURKET, GROVER Referring Unavailable KIMBER, PARAM Admitting Unavailable KIMBER, PARAM Attending Unavailable Allergies Allergy Classification Reported Allergen(s) Allergy Type Date of Onset Reaction(s) Facility (20 sources) Adhesive Tape; Translations: [Unknown] Propensity to adverse reactions to drug 03-14-20 15 Unknown, [facility] Work Phone: (20 sources) Sulfonamides (Antibiotic); Translations: [SULFA (SULFONAMIDE ANTIBIOTICS)] Propensity to adverse reactions to drug 03-14-20 15 [facility] Work Phone: (3 sources) amoxicillin Drug Allergy 03-14-20 15 [facility] Work Phone: (4 sources) Sulfonamides (Antibiotic) Propensity to adverse reactions to drug 03-14-20 15 [facility] (10 sources) Sulfonamides (Antibiotic) Propensity to adverse reactions Unknown [facility] Other (1 source) Sulfonamides (Antibiotic) Drug allergy (disorder) 05-10-20 19 [facility] Repository (3 sources) Adhesive Tape Drug allergy Unknown [facility] Other (2 sources) Allergies Reconciled Propensity to adverse reactions Unknown [facility] Other (1 source) ALLERGIES NOT ON FILE; Translations: [ALLERGIES NOT ON FILE] Propensity to adverse reactions (disorder) [facility] Repository (1 source) Adhesive Tape Allergy to substance 10-01-19 24 [facility] Medications Current Medications Medication Drug Class(es) Dates [...] tablet (20 sources) Dihydropyridine Calcium Channel Nikunj Start: 09-30-2023 take 1 tablet by mouth once daily take 1 tablet by mouth once mireya y amLODIPine Besylate 10 MG 1 tablet Orally Once a day for 90 days Active apixaban 5 mg oral tablet (2 sources) Factor Xa Inhibitor Start: 09-30-2023 take 1 tablet by mouth twice daily take 1 tablet by mouth every twe lve hours Eliquis 2.5 MG 1 tablet twice a day Active aspirin 81 mg delayed release oral tablet (20 sources) Platelet Aggregation Inhibitor, Nonsteroidal Anti-inflammatory Drug take 1 tablet by mouth once daily aspirin 81 MG EC tablet Take 81 mg by mouth daily. 0 Active atorvastatin 20 mg oral tablet (20 sources) HMG-CoA Reductase Inhibitor Start: take 1 tablet by mouth once daily Atorvastatin Pantera cium 20 mg TAKE 1 TABLET DAILY Active [...] mg oral tablet (20 sources) Purine Antimetabolite Start: 10-01-2023 take 2 tablets by mouth once daily Start: 09-30-2023 End: 10-01-2023 take 2 tablets by mouth once daily take 2 tablets by mo uth once daily azaTHIOprine 50 MG TAKE 2 TABLETS BY MOUTH DAILY for 90 days Active azaTHIOprine 50 MG as directed Orally Active take 2.5 tablets by mouth once daily azaTHIOprine (IMURAN) 50 mg tablet Take 2.5 tablets by mouth daily 0 Active azelastine hydrochloride 0.137 mg/actuat metered dose nasal spray (20 sources) Histamine-1 Receptor Antagonist Start: 07-09-2023 take 137 ug nasal route every twelve hours Azelastine Active 137 MCG INTRANASAL Every 12 hours 30 July 09, 2023 1:00am administer into each nostril Start: 07-02-2022 take 1 puff(s) nasal route twice daily Azelastine HCl 0.1 % 1 puff in each nostril Nasally Twice a day for 30 day(s) Jun, Active take 1 spray(s) nasa l route twice daily Azelastine HCl 137 MCG/SPRAY USE 1 [...] 750 mg oral capsule (20 sources) Aminosalicylate Start: 09-30-2023 take 2 capsules by mouth twice daily take 2 capsules by m outh every twelve hours Balsalazide Disodium 750 MG 2 capsules Orally Twice a day for 90 days Active take 1 capsule by mo uth three times daily balsalazide (COLAZAL) 750 mg capsule Steve e 750 mg by mouth 3 (three) times a day. 0 Active cholecalciferol 0.125 mg oral tablet (20 [...] 2 (two) times a day. 0 Active dapagliflozin 10 mg oral tablet (1 source) Sodium-Glucose Cotransporter 2 Inhibitor Start: 10-01-2023 take 1 tablet by mouth once daily Dapagliflozin Propanediol (Farxiga) 10 mg tablet Active 10 MG PO Daily October 01, 2023 12:00am Fish Oil-Dha-Epa 1,200 Mg-144 Mg-216 Mg Capsule [...] 3 (three) times a day. 0 Active Fluticasone Propionate 93 MCG/ACT (10 sources) Fluticasone Propionate 93 MCG/ACT 2 sprays (1 spray in each nostril) Nasally Twice a day Active Klor-Con/Ef 25 Meq Effervescent Tablet (2 sources) Start: 02-02-2016 take 1 tablet by mouth once daily, then take 1 tablet by mouth KLOR-CON/EF 25 mEq disintegrating tablet Take 25 mEq by mouth daily. 02/02/2016 Active levothyroxine sodium 0.1 mg oral tablet (20 sources) l-Thyroxine Start: 09-30-2023 take 1 tablet by mouth once daily in the morning Start: 11-06-2019 take 1 capsule by mo [facility] once daily Synthroid 100 mcg tablet Take [...] 0 Active take 187.5 ug by troy once daily levothyroxine (SYNTHROID, LEVOTHROID) 125 MCG tablet Take 187.5 mcg by mouth once daily. Active losartan potassium 50 mg oral tablet (20 sources) Angiotensin 2 Receptor Nikunj Start: 09-30-2023 take 1 tablet by mouth once daily take 1 tablet by troy th every twenty-four hours Losartan Potassium 50 MG 1 tablet Orally Once a day for 90 days Active meloxicam 15 mg oral tablet (20 sources) Nonsteroidal Anti-inflammatory Drug Start: 01-23-2017 take 1 tablet by mouth once daily meloxicam (MOBIC) 15 MG tablet Take 15 mg by mouth daily. 0 01/23/2017 Active mesalamine 1000 mg rectal suppository (20 sources) Aminosalicylate take 1000 mg rectal route once daily mesalamine (CANASA) 1000 MG suppository Insert 1,000 mg into the rectum nightly. 0 Active metoprolol tartrate 25 mg oral tablet (2 sources) beta-Adrenergic Nikunj Start: 09-30-2023 take 1 tablet by mouth once daily Metoprolol Tartr ate Active pantoprazole 40 mg delayed release oral tablet (20 sources) Proton Pump Inhibitor Start: 09-30-2023 take 1 tablet by mouth once daily Pantoprazole Active 1 TAB PO Daily September 30, 2023 12:00am FreeTextSig: TAKE 1 TABLET DAILY; Note: Source Status: Start; Refills: 3; Qty: 90 Tablet; Provider: Dianna Lyon ( ) take 1 tablet by troy th every twenty-four hours Pantoprazole Sodium 40 MG 1 tablet Orall y Once a day Active polysaccharide iron complex 150 mg oral capsule (20 sources) take 1 capsule by mouth twice daily polysaccharide iron complex (NIFEREX) 150 mg iron capsule Take 150 mg by mouth 2 (two) times a day. 0 Active Potassium Bicarb-Citric Acid (Klor-Con/Ef) 25 mEq tablet, effervescent (1 source) Start: 10-01-2023 Potassium Bicarb-Citric Acid (Klor-Con/Ef) 25 mEq tablet, effervescent Active 25 MEQ PO Daily October 01, 2023 12:00am potassium bicarbonate 25 meq effervescent oral tablet (20 sources) Start: 02-02-2016 take 1 tablet by mouth once daily KLOR-CON/EF 25 mEq disintegrating tablet Take 25 mEq by mouth daily. 0 02/02/2016 Active Start: 02-02-2016 take 1 tablet by troy th once daily, then take 1 tablet by mouth KLOR-CON/EF 25 mEq disintegrating tablet Take 25 mEq by mouth daily. 02/02/2016 Active QUEtiapine 25 mg oral tablet (20 [...] (20 sources) Serotonin and Norepinephrine Reuptake Inhibitor Start: 09-30-19 24 take 3 capsules by mouth once daily Venlafaxine HCl ER 75 mg TAKE 3 CAPSULES DAILY Active take 1 capsule by mo vah every twenty-four hours Venlafaxine HCl ER 75 [...] Drug Class(es) Dates Sig (Normalized) Sig (Original) 24 hr buPROPion hydrochloride 150 mg extended release oral tablet (20 sources) Aminoketone Start: 09-30-2023 End: 10-01-2023 take 150 mg by mouth once daily in the morning Bupropion Hcl Discontinued 150 MG PO Every morning September 30, 2023 12:00am October 01, 2023 3:03pm take 3 tablets by mo vah every twenty-four hours buPROPion HCl ER (XL) 150 MG 3 tablet Orally Once a day for 90 days Active take 1 tablet by mouth three randall es daily buPROPion HCl ER (XL) 150 MG 1 tablet Orally three times daily for 90 days Active take 1 tablet by troy every twenty-four hours buPROPion HCl ER (XL) 150 MG 1 tablet in the morning Orally Once a day Active Cyclosporine (Restasis) 0.05 % dropperette (1 source) Start: 09-30-2023 End: 10-01-2023 take 1 drop(s) into the eye(s) every twelve hours Cyclosporine (Restasis) 0.05 % dropperette Discontinued 1 DROPS EYE-BOTH Every 12 hours September 30, 2023 12:00am October 01, 2023 2:47pm fluticasone propionate 0.093 mg/actuat metered dose nasal spray (20 sources) Corticosteroid Start: 09-30-2023 End: 10-01-2023 Start: 02-04-2016 take 1 spray(s) nasa l route once daily fluticasone (FLONASE) 50 mcg/actuation nasal spray Instill 1 spray into each nostril daily. 0 02/04/2016 Active magnesium citrate 58.2 mg/ml oral solution (1 source) Start: 07-02-2018 End: 07-02-2018 magnesium citrate solution 296 mL melatonin 10 mg oral tablet (4 sources) End: 04-08-2017 take 1 tablet by mouth once melatonin 10 mg Tab Take 10 mg by mouth nightly. 04/08/2017 Discontinued potassium chloride 8 meq extended release oral tablet (11 sources) Start: 09-30-2023 End: 10-01-2023 take 2 tablets by mouth twice daily at mealtime take 2 tablets by mo uth twice daily at mealtime Potassium Chloride ER 8 MEQ TAKE 2 TABLE TS BY MOUTH TWICE A DAY WITH FOOD for 90 days Active raNITIdine 300 mg oral capsule (4 sources) [...] (2 sources) Depression; Translations: [Depression, unspecified] Chronic Nutritional deficiencies (2 sources) Vitamin D deficiency, unspecified; Translations: [Vitamin D deficiency, unspecified] Onset: 09-17-2023 Chronic Other aftercare (1 source) Encounter for removal of sutures Episodic Other connective tissue disease (1 source) [...] Spondylosis; intervertebral disc disorders; other back problems (14 sources) Low back pain; Translations: [Lumbar pain] 10-01-2023 Episodic Thyroid disorders (14 sources) Hypothyroidism; Translations: [Hypothyroidism, unspecified] Onset: 07-28-2022 Chronic Unclassified (17 sources) Drug therapy finding; Translations: [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] Onset: 04-08-2017 04-08-2017 Unclassified (10 sources) Long-term current use of drug therapy; Translations: [FDC current use of 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 drug] Onset: 04-08-2017 04-08-2017 Unclassified (2 sources) Longstanding persistent atrial fibrillation; Translations: [Longstanding persistent atrial fibrillation] Onset: 03-30-2023 Unclassified (2 sources) Other persistent atrial fibrillation; Translations: [Other persistent atrial fibrillation] Onset: 02-17-2023 Past or Other Problems Problem Classification Problem Date Documented Da te Episodic/Chronic Intestinal obstruction without hernia (16 sources) Fecal impaction; Translations: [Fecal impaction] Onset: 07-02-2018 07-02-2018 Episodic Malaise and fatigue (2 sources) Other fatigue; Translations: [Other fatigue] Onset: 09-17-2023 Episodic Other aftercare (1 source) Long-term current use of drug therapy; Translations: [Other computer terminal operator (current) drug therapy] Onset: 04-08-2017 04-08-2017 Episodic Other aftercare (2 sources) Encounter for follow-up examination after completed treatment for conditions other than malignant neoplasm; Translations: [Encounter for follow-up examination after completed treatment for conditions other than malignant neoplasm] Onset: 04-23-2023 Episodic Results Test Name Value Interpretation Reference Range Facility Orders Onlyon 01-05-2024 Orders Only [id number] Emy Rodriguez 1940 F Date Provider Department Center 01/05/2024 [facility] No family history on file Normal [facility] Abstracton 12-16-2023 Abstract [id number] Emy Rodriguez 1940 F Date Provider Department Center 12/16/2023 PARAM STODDARD [facility] Rahman Count No family history on file Normal [facility] Office Visiton 12-08-2023 Follow-up visit [id number] Emy Rodriguez 1940 F Date Provider Department Center 12/08/2023 PARAM STODDARD [facility] No family history on file Level of Service:32387 CO OFFICE/OUTPATIENT ESTABLISHED HIGH MDM 40 MIN Normal [facility] Laboratory - Chemistry and C hemistry - challengeon 09-29-2023 Cobalamin (Vitamin B12) [Mass/Vol] 1712.0 pg/mL 193.0-986.0 [facility] TSH Qn 0.490 m[IU]/L 0.358-3.740 [facility] No Panel Informationon 09-28 25-Hydroxy Vitamin D Total 54.7 ng/mL [facility] Comment on above: <20 ng/mL Vit D defi cient20-<30 ng/mL Vit D -950 ng/mL Vit D sufficient>100 ng/mL Potential Toxicity Office Visiton 09-17-2023 Follow-up visit [id number] Gabi Rodriguezvaleria Mcmahon 1940 F Date Provider Department Center 09/17/2023 J[facility] No family history on file Level of Service:24129 CO OFFICE/OUTPATIENT ESTABLISHED MOD MDM 30 MIN Reason for Visit and Comments: Atrial Fibrillation [80] Congestive Heart Failure [127] Normal [facility] HPon 07-22-2023 [facility] Electrophysiology Consult Note Reason for visit: Afib, [...] is asymptomatic of this 02/17/23 HPI: Debra Rodriguez is a 82 y.o. year old with past medical history of htn, GERD, sleep apnea, mitral valve prolapse, A-fib, c-diff, TIA, HLD, it is noted in her H&P per PCP she has been on a medication for afib but it caused her thyroid issues. She had previous seen a wellness rn and an outlying facility and recently moved here about 2 years ago and has not established with a wellness rn. She was seen by Gracia SOSA and subsequently started on anticoagulation with Eliqukelly. previously she had afib ablation with [facility] before 2009 had for unclear reasons was not placed on anticoagulation when he saw her. she got admitted to [place] ED on 02/06/2023 following a fall. versus attributed to be a mechanical fall as she tripped on the corner curb. no loss of consciousness. CT of the head was negative for any hemorrhage. she had some lacerations which were sutured. She had a recent echocardiogram done which showed cardiomyopathy with a EF of 35 to 40%. [id number] at least 6 for age, gender, hypertension, [...] 100 mcg by mouth in the morning. dehnaat-tiem-vadsj-or eg-capryl 100 mg-150 mg- 50 mg-150 mg capsule Take 1 capsule by mouth in the morning. venlafaxine XR (Effexor-XR (more content not included)... [facility] NURSNOTEon 07-22-2023 JERILYNNOTE RN educated pt on d/ c instructions. RN encouraged pt to voice any questions or concerns. Pt verbalizes no questions or concerns at this time. Normal [facility] Basophils Auto (Bld) [#/Vol] on 07-17-2023 Basophils (Bld) [#/Vol] 0.0 10 3/uL 0.0-0.1 [facility] Basophils/100 WBC Auto (Bld) on 07-17-2023 Basophils/100 WBC (Bld) 1.0 % 0.2-2.0 [facility] Eosinophils/100 WBC Auto (Bl d)on 07-17-2023 Eosinophils/100 WBC (Bld) 1.2 % 0.9-7.0 [facility] Erythrocyte distribution wid th Auto (RBC) [Ratio]on 07-17-2023 Erythrocyte distribution width (RBC) [Ratio] 15.0 % 11.0-15.0 [facility] Estimated glomerular filtrat ion rate (GFR) non- Americanon 07-17-2023 GFR/1.73 sq M.predicted among non-blacks MDRD (S/P/Bld) [Vol rate/Area] 51 mL/min/{1.73_m2} >=60 [facility] Hematocrit Auto (Bld) [Volum e fraction]on 07-17-2023 Hematocrit (Bld) [Volume fraction] 39.9 % 36.0-48.0 [facility] Hemoglobin [Mass/volume] in Bloodon 07-17-2023 Hemoglobin (Bld) [Mass/Vol] 12.8 g/dL 12.0-16.0 [facility] Laboratory - Chemistry and C hemistry - challengeon 07-17-2023 Calcium [Mass/Vol] 9.0 mg/dL 8.5-10.1 [facility] Chloride [Moles/Vol] 105 mmol/L 98-107 [facility] CO2 [Moles/Vol] 30.0 mmol/L 21.0-32.0 [facility] Creatinine [Mass/Vol] 1.03 mg/dL 0.55-1.02 [facility] GFR/1.73 sq M.predicted MDRD (S/P/Bld) [Vol rate/Area] mL/min/{1.73_m2} >=60 [facility] Glucose [Mass/Vol] 117 mg/dL 74-106 [facility] Potassium [Moles/Vol] 4.6 mmol/L 3.5-5.1 [facility] Sodium [Moles/Vol] 142 mmol/L 136-145 [facility] Urea nitrogen [Mass/Vol] 16.0 mg/dL 7.0-18.0 [facility] Urea nitrogen/Creatinine [Mass ratio] 15.5 mg/mg [facility] Laboratory - Hematology and Cell countson 07-17-2023 Immature granulocytes/100 WBC (Bld) 0.2 % 0.0-0.5 [facility] Leukocytes [#/volume] correc anila for nucleated erythrocytes in Blood by Automated counon 07-17-2023 WBC corrected for nucl RBC Auto (Bld) [#/Vol] 4.2 10 3/uL 4.0-11.0 [facility] Lymphocytes Auto (Bld) [#/Vo l]on 07-17-2023 Lymphocytes (Bld) [#/Vol] 0.7 10 3/uL 1.2-3.8 [facility] Lymphocytes/100 WBC Auto (Bl d)on 07-17-2023 Lymphocytes/100 WBC (Bld) 17.1 % 20.5-60.0 [facility] MCH Auto (RBC) [Entitic mass ]on 07-17-2023 MCH (RBC) [Entitic mass] 31.5 pg 26.7-34.0 [facility] MCHC Auto (RBC) [Mass/Vol]on 07-17-2023 MCHC (RBC) [Mass/Vol] 32.1 g/dL 29.9-35.2 [facility] MCV Auto (RBC) [Entitic vol] on 07-17-2023 MCV (RBC) [Entitic vol] 98.3 fL 81.0-99.0 [facility] Monocytes Auto (Bld) [#/Vol] on 07-17-2023 Monocytes (Bld) [#/Vol] 0.4 10 3/uL 0.3-0.8 [facility] Monocytes/100 WBC Auto (Bld) on 07-17-2023 Monocytes/100 WBC (Bld) 9.0 % 1.7-12.0 [facility] Neutrophils Auto (Bld) [#/Vo l]on 07-17-2023 Neutrophils (Bld) [#/Vol] 3.0 10 3/uL 1.4-6.5 [facility] Neutrophils/100 WBC Auto (Bl d)on 07-17-2023 Neutrophils/100 WBC (Bld) 71.5 % 43.0-75.0 [facility] No Panel Informationon 07-17 Eosinophils # (Auto) 0.1 10 3/uL 0.0-0.7 [facility] Immature Granulocyte # (Auto) 0.01 10 3/uL 0.00-0.03 [facility] Platelet mean volume Auto (B ld) [Entitic vol]on 07-17-2023 Platelet mean volume (Bld) [Entitic vol] 9.9 fL 9.5-13.5 [facility] Platelets Auto (Bld) [#/Vol] on 07-17-2023 Platelets (Bld) [#/Vol] 188 10 3/uL 150-450 [facility] RBC Auto (Bld) [#/Vol]on RBC (Bld) [#/Vol] 4.06 10 6/uL 4.20-5.40 [facility] Serum or plasma anion gap de terminationon 07-17-2023 Anion gap [Moles/Vol] 11.6 mmol/L [facility] Office Visiton 07-14-2023 Follow-up visit [id number] Emy Rodriguez 1940 F Date Provider Department Center 07/14/2023 PARAM STODDARD [facility] No family history on file Level of Service:18462 CO OFFICE/OUTPATIENT ESTABLISHED LOW MDM 20 MIN Normal [facility] Orders Onlyon 07-14-2023 Orders Only [id number] Emy Rodriguez 1940 F Date Provider Department Center 07/14/2023 KISHOR MONTESINOS [facility] No family history on file Normal [facility] Office Visiton 05-26-2023 Follow-up visit [id number] Emy Rodriguez 1940 F Date Provider Department Center 05/26/2023 Catrina-GRACIA FOSTER [facility] No family history on file Level of Service:00959 CO OFFICE/OUTPATIENT ESTABLISHED MOD MDM 30 MIN Normal [facility] HPon 05-11-2023 HP History Of Present Illness Debra Rodriguez is a 82 y.o. female presenting with htn, GERD, sleep apnea, mitral valve prolapse, A-fib, c-diff, TIA, HLD, it is noted in her H&P per PCP she has been on a medication for afib but it caused her thyroid issues. She had previous seen a wellness rn and an outlying facility and recently moved here about 2 years ago and has not established with a wellness rn. She was seen by Gracia SOSA and subsequently started on anticoagulation with Eliqukelly. previously she had afib ablation with [facility] before 2009 had for unclear reasons was not placed on anticoagulation when he saw her. she got admitted to [place] ED on 02/06/2023 following a fall. versus attributed to be a mechanical fall as she tripped on the corner curb. no loss of consciousness. CT of the head was negative for any hemorrhage. she had some lacerations which were sutured. She had a recent echocardiogram done which showed cardiomyopathy with a EF of 35 to 40%. Pt underwent dual chamber PPM by Dr Nuñez. She has come for DCCV. [id number] at least 6 for age, gender, hypertension, [...] mcg by mouth in the morning. 05/11/2023 cgkcimh-ablb-hwwqt-or eg-capryl 100 mg-150 mg- 50 mg-150 mg capsule Take 1 capsule by mouth in the morning. 05/11/2023 venlafaxine XR (Effexor-XR) 75 mg 24 hr capsule Take 75 mg by mouth in the morning, at noon, and at bedtime. 05/11/2023 vit C,Q-Lz-xjwvp-lutein-z eaxan (PreserVision AREDS-2) 250-90-40-1 mg capsule Take [...] thoracic defo (more content not included)... Normal [facility] NURSNOTEon 05-11-2023 NURSNOTE RN educated pt on d/ c instructions. RN encouraged pt to voice any questions or concerns. Pt verbalizes no questions or concerns at this time. Normal [facility] NURSNOTE Bedside swallow stud y completed and passed. Normal [facility] Office Visiton 04-23-2023 Follow-up visit [id number] Emy Rodriguez 1940 Date Provider Department Center 04/23/2023 [id number] SALEEM CARD [facility] No family history on file Level of Service:72662 CO POSTOP FOLLOW UP VISIT RELATED TO ORIGINAL PX [facility] Center BASIC METABOLIC PANELon 11- Anion gap [Moles/Vol] 12 mmol/L Normal 7-20 [facility] Comment on above: Performed By: #### L [id number] ####[facility] ([facility])[address] [address] Calcium [Mass/Vol] 9.7 mg/dL Normal 8.6-10.3 [facility] Comment on above: Performed By: #### L [id number] ####[facility] ([facility])[address] [address] Chloride [Moles/Vol] 108 mmol/L High 98-107 [facility] Comment on above: Performed By: #### L [id number] ####[facility] ([facility])[address] [place] [address] CO2 [Moles/Vol] 23 mmol/L Normal 21-31 [facility] Comment on above: Performed By: #### L [id number] ####[facility] ([facility])[address] [address] Creatinine [Mass/Vol] 0.92 mg/dL Normal 0.60-1.20 [facility] Comment on above: Performed By: #### L [id number] ####[facility] ([facility])[address] [place] [address] GLOMERULAR FILTRATION RATE ML/MIN/1.73 SQ M.PREDICTED 62.2 mL/min/1.73m*2 Normal >60.0 [facility] Comment on above: Result Comment: [facility]???s estimated glomerular filtration rate (eGFR) will no [...] of individuals. Performed By: #### L [id number] ####[facility] ([facility])[address] [place] [address] Glucose [Mass/Vol] 67 mg/dL Low 70-100 [facility] Comment on above: Performed By: #### L [id number] ####[facility] ([facility])[address] [address] Potassium [Moles/Vol] 3.9 mmol/L Normal 3.5-5.1 [facility] Comment on above: Performed By: #### L [id number] ####[facility] ([facility])[address] [address] Sodium [Moles/Vol] 139 mmol/L Normal 136-145 [facility] Comment on above: Performed By: #### L [id number] ####[facility] ([facility])[address] [address] Urea nitrogen [Mass/Vol] 12 mg/dL Normal 7-25 [facility] Comment on above: Performed By: #### L [id number] ####[facility] ([facility])[address] [place] [address] UREA NITROGEN/CREATININE (MASS RATIO) IN SER/PLAS 13.0 Normal [facility] Comment on above: Performed By: #### L [id number] ####[facility] ([facility])[address] [address] CBCon 04-11-2023 Erythrocyte distribution width (RBC) [Ratio] 14.8 % Normal 11.5-15.0 [facility] Comment on above: Performed By: #### L [id number] #### [facility] ([facility]) [address] [place] [address] ERYTHROCYTE MEAN CORPUSCULAR HEMOGLOBIN CONCENTRATION (G/DL) BY AUTOMATED 33.3 g/dL Normal 32.0-35.0 [facility] Comment on above: Performed By: #### L [id number] #### [facility] ([facility]) [address] [place] [address] Hematocrit (Bld) [Volume fraction] 40.0 % Normal 36.0-48.0 [facility] Comment on above: Performed By: #### L [id number] #### [facility] ([facility]) [address] [place] [address] Hemoglobin (Bld) [Mass/Vol] 13.3 g/dL Normal 12.0-15.0 [facility] Comment on above: Performed By: #### L [id number] #### [facility] ([facility]) [address] [place] [address] MCH (RBC) [Entitic mass] 31.7 pg Normal 27.0-33.0 [facility] Comment on above: Performed By: #### L [id number] #### [facility] ([facility]) [address] [place] [address] MCV (RBC) [Entitic vol] 95.5 fL Normal 82.0-98.0 [facility] Comment on above: Performed By: #### L [id number] #### [facility] ([facility]) [address] [place] [address] PLATELETS (10*3/UL) IN BLOOD AUTOMATED COUNT 245 10*3/uL Normal 150-400 [facility] Comment on above: Performed By: #### L [id number] #### [facility] ([facility]) [address] [place] [address] RBC (Bld) [#/Vol] 4.19 10*6/uL Normal 3.80-5.00 [facility] Comment on above: Performed By: #### L [id number] #### [facility] ([facility]) [address] [place] [address] WBC (Bld) [#/Vol] 9.32 10*3/uL Normal 4.00-10.60 [facility] Comment on above: Performed By: #### L [id number] #### [facility] ([facility]ONNIE) [place] [address] DSon 04-11-2023 DS - Attestation signed by Jovanny Nuñez MD at 04/12/2023 3:05 PM I discussed the patient on the same date of service as the Non-Physician Provider Alec Saleem NP. Teaching Physician's Revisions: As above Admission [...] AREDS-2 250-90-40-1 mg capsule Generic drug: vit C,P-Yl-ghmpv-lutein-z eaxan Synthroid 100 mcg tablet Generic drug: levothyroxine bwmvixt-mktr-uevqg-or eg-capryl 100 mg-150 mg- 50 mg-150 mg capsule venlafaxine XR 75 mg 24 hr capsule Commonly known as: Effexor-XR Vitamin D3 10 mcg (400 unit) capsule Generic drug: cholecalciferol (vitamin D3) Where to Get Your Medications These medications were sent to [facility]/pharmacy #[id number] [place] [address] apixaban 5 mg tablet Activity Patient currently [...] a buri (more content not included)... Normal [facility] POCT GLUCOSE METER UNSOLICIT ED RESULTSon 04-11-2023 Glucose [Mass/Vol] 143 mg/dL High 70-105 [facility] Comment on above: Order Comment: Waive d Testing in the ED is performed under the ED CLIA certificate #[id number]. Result Comment: [email or web address] Performed By: #### L [id number] ####[facility] ([facility])[address] [place] [address] Glucose [Mass/Vol] 81 mg/dL Normal 70-105 [facility] Comment on above: Order Comment: Waive d Testing in the ED is performed under the ED CLIA certificate #[id number]. Result Comment: [email or web address] Performed By: #### L [id number] ####[facility] (BEAKER)[address] [place] [address] 30on 04-10-2023 30 The patient is Moderately Stable - Low risk of patient condition declining or worsening The patient's goals for the shift include comfort The clinical goals for the shift include VSS Over the shift, the patient did make progress toward her goals. [facility] 30 The patient is Moderately Stable - Low risk of patient condition declining or worsening The patient's goals for the shift include comfort The clinical goals for the shift include VSS [facility] HPon 04-10-2023 HP History Of Present Illness Debra Rodriguez is a 82 y.o. female presenting with [...] Assessment/Plan Principal Problem: AV block Pacemaker Jovanny Nueñz MD [facility] NURSNOTEon 04-10-2023 NURSNOTE RN messaged hospitalist regarding patient admit orders and med rec, per hospitalist cardiology is primary. RN paged and received a call from Jewel, science and operations officer wellness rn, and was told that hospitalist was primary. RN contacted hospitalist again regarding information. Per hospitalist, they had talked to Jewel and informed him that cardiology was primary. RN told that [facility] will contact [place] and place further orders. Title Specialist will update day team and await further orders. [facility] Orders Onlyon 04-10-2023 Orders Only [id number] Emy Rodriguez esther 1940 F Date Provider Department Center 04/10/2023 [facility]IA [facility] No family history on file [facility] Prep for Procedureon 023 Prep for Procedure [id number] Emy Rodriguez esther 1940 F Date Provider Department [place] 04/10/2023 [facility] No family history on file [facility] Follow-Upon 03-27-2023 Follow-Up [id number] Gabi Rodriguezvaleria miller 1940 F Date Provider Department Center 03/27/2023 1596-GRACIA FOSTER [facility] No family history on file Level of Service:82008 CO OFFICE/OUTPATIENT ESTABLISHED MOD [facility] 30-39 MIN Reason for Visit and Comments: Follow-up [[id number]] [facility] ANESon 02-26-2023 ANES - Attestation signed by Grover Kang MD at 03/02/2023 12:21 PM k Patient: Debra Rodriguez Procedure Information Date/Time: 02/26/23 1030 Procedure: Coronary angiography Location: [facility] ADVERTISING ASSISTANT 3 / [facility] VASCULAR LAB (Cath) Providers: Grover Kang MD Clinical information reviewed: Allergies Meds Physical Exam Airway Mallampati: II Cardiovascular Rhythm: regular Rate: normal Dental Pulmonary Abdominal Anesthesia Plan ASA 3 other (Conscious sedation.) [facility] reviewed. The patient was examined and there are no changes to the H&P. We will proceed with coronary angiogram for newly diagnosed HFrEF with ejection fraction 35 to 40%. Normal [facility] NURSNOTEvens 02-26-2023 MARY RN educated pt on d/ c instructions. RN encouraged pt to voice any questions or concerns. Pt verbalizes no questions or concerns at this time. Pt was wheeled off of unit with all of belongings. Normal [facility] 02-17-2023 [facility] Electrophysiology Consult Note Reason for visit: Afib HPI: Debra Rodriguez is a 82 y.o. year old with past medical history of htn, GERD, sleep apnea, mitral valve prolapse, A-fib, c-diff, TIA, HLD, it is noted in her H&P per PCP she has been on a medication for afib but it caused her thyroid issues. She had previous seen a wellness rn and an outlying facility and recently moved here about 2 years ago and has not established with a wellness rn. She was seen by Gracia SOSA and subsequently started on anticoagulation with Eliquis. previously she had afib ablation with [facility] before 2009 had for unclear reasons was not placed on anticoagulation when he saw her. she got admitted to [place] ED on 02/06/2023 following a fall. versus attributed to be a mechanical fall as she tripped on the corner curb. no loss of consciousness. CT of the head was negative for any hemorrhage. she had some lacerations which were sutured. She had a recent echocardiogram done which showed cardiomyopathy with a EF of 35 to 40%. [id number] at least 6 for age, gender, hypertension, [...] upstroke, n (more content not included)... Normal [facility] Office Visiton 02-17-2023 Follow-up visit [id number] Emy Rodriguez 1940 Date Provider Department Center 02/17/2023 PARAM STODDARD [facility] No family history on file Level of Service:88133 CO OFFICE/OUTPATIENT NEW HIGH MDM 60-74 MINUTES Normal [facility] Orders Onlyon 02-17-2023 Orders Only [id number] Emy Rodriguez 1940 Provider Department Center 02/17/2023 KISHOR MONTESINOS [facility] No family history on file Normal [facility] BNPon 07-24-2022 Natriuretic peptide B (Bld) [Mass/Vol] 1076.0 pg/mL Normal <=1,800.0 [facility] Comment on above: Performed By: #### L IPID, TSH, BNP, CMP #### [facility] [address] [place] [address] Dr. Ana Fish CBC AUTO DIFFon 07-24-2022 BASO # 0.0 103/ul Normal 0.0-0.1 [facility] Comment on above: Performed By: #### C BC #### [facility] [address] [place] [address] Dr. Ana Fish Basophils/100 WBC (Bld) 0.4 % Normal 0.2-2.0 [facility] Comment on above: Performed By: #### C BC #### [facility] [address] [place] [address] Dr. Ana Fish EO # 0.1 103/ul Normal 0.0-0.7 [facility] Comment on above: Performed By: #### C BC #### [facility] [address] [place] [address] Dr. Ana Fish Eosinophils/100 WBC (Bld) 1.3 % Normal 0.9-7.0 [facility] Comment on above: Performed By: #### C BC #### [facility] [address] [place] [address] Dr. Ana Fish Erythrocyte distribution width (RBC) [Ratio] 15.5 % Critically high 11.0-15.0 [facility] Comment on above: Performed By: #### C BC #### [facility] [address] [place] [address] Dr. Ana Fish Hematocrit (Bld) [Volume fraction] 37.0 % Normal 36.0-48.0 [facility] Comment on above: Performed By: #### C BC #### [facility] [address] [place] [address] Dr. Ana Fish Hemoglobin (Bld) [Mass/Vol] 12.7 g/dL Normal 12.0-16.0 [facility] Comment on above: Performed By: #### C BC #### [facility] [address] [place] [address] Dr. Ana Fish IG # 0.03 10e3/ul Normal 0.00-0.03 The [facility] Comment on above: Performed By: #### C BC #### [facility] [address] [place] [address] Dr. Ana Fish IG % 0.4 % Normal 0.0-0.5 The [facility] Comment on above: Performed By: #### C BC #### [facility] [address] [place] [address] Dr. Ana Fish LYMPH # 1.6 103/ul Normal 1.2-3.8 The [facility] Comment on above: Performed By: #### C BC #### [facility] [address] [place] [address] Dr. Ana Fish Lymphocytes/100 WBC (Bld) 19.0 % Critically low 20.5-60.0 [facility] Comment on above: Performed By: #### C BC #### [facility] [address] [place] [address] Dr. Ana Fish MANUAL DIFF REQ NO Normal [facility] Comment on above: Performed By: #### C BC #### [facility] [address] [place] [address] Dr. Ana Fish MCH (RBC) [Entitic mass] 32.3 pg Normal 26.7-34.0 [facility] Comment on above: Performed By: #### C BC #### [facility] [address] [place] [address] Dr. Ana Fish MCHC (RBC) [Mass/Vol] 34.3 g/dL Normal 29.9-35.2 [facility] Comment on above: Performed By: #### C BC #### [facility] [address] [place] [address] Dr. nAa Fish MCV (RBC) [Entitic vol] 94.1 fL Normal 81.0-99.0 [facility] Comment on above: Performed By: #### C BC #### [facility] [address] [place] [address] Dr. Ana Fish MONO # 0.8 103/ul Normal 0.3-0.8 [facility] Comment on above: Performed By: #### C BC #### [facility] [address] [place] [address] Dr. Ana Fish Monocytes/100 WBC (Bld) 9.7 % Normal 1.7-12.0 [facility] Comment on above: Performed By: #### C BC #### [facility] [address] [place] [address] Dr. Ana Fish NEUT # 5.7 103/ul Normal 1.4-6.5 [facility] Comment on above: Performed By: #### C BC #### [facility] [address] [place] [address] Dr. Ana Fish Neutrophils/100 WBC (Bld) 69.2 % Normal 43.0-75.0 [facility] Comment on above: Performed By: #### C BC #### [facility] [address] [place] [address] [address] Ana Fish Platelet mean volume (Bld) [Entitic vol] 9.9 fL Normal 9.5-13.5 [facility] Comment on above: Performed By: #### C BC #### [facility] [address] [place] [address] [address] Ana Fish PLT 273 103/ul Normal 150-450 [facility] Comment on above: Performed By: #### C BC #### [facility] [address] [place] [address] [address] Ana Fish RBC 3.93 106/ul Critically low 4.20-5.40 [facility] Comment on above: Performed By: #### C BC #### [facility] [address] [place] [address] [address] Ana Fish WBC 8.2 103/ul Normal 4.0-11.0 [facility] Comment on above: Performed By: #### C BC #### [facility] [address] [place] [address] Dr. Ana Fish FREE T4on 07-24-2022 Free T4 [Mass/Vol] 1.34 ng/dL Normal 0.76-1.46 [facility] Comment on above: Performed By: #### F T4 #### [facility] [address] [place] [address] Dr. Ana Fish LIPID PROFILEon 07-24-2022 CHOL-HDL RATIO NORM SEE BELOW Normal [facility] Comment on above: Result Comment: 3.3 - 4.4 LOW RISK 4.4 - 7.1 AVERAGE RISK 7.1 - 11.0 MODERATE RISK >11.0 HIGH RISK Performed By: #### L IPID, TSH, BNP, CMP #### [facility] [address] [place] [address] [address] Ana Fish Cholesterol [Mass/Vol] 199 mg/dL Normal <=200 [facility] Comment on above: Performed By: #### L IPID, TSH, BNP, CMP #### [facility] [address] [place] [address] [address] Ana Fish Cholesterol in HDL [Mass/Vol] 88 mg/dL Critically high 40-60 [facility] Comment on above: Performed By: #### L IPID, TSH, BNP, CMP #### [facility] [address] [address] [address] Ana Fish Cholesterol in LDL [Mass/Vol] 97.6 mg/dL Normal [facility] Comment on above: Performed By: #### L IPID, TSH, BNP, CMP #### [facility] [address] [place] [address] [address] Ana Fish Cholesterol.total/C holesterol in HDL [Mass ratio] 2.3 {ratio} Normal [facility] Comment on above: Performed By: #### L IPID, TSH, BNP, CMP #### [facility] [address] [place] [address] [address] Ana Fish HDL NORMAL > or = 60 mg/dl - LO W CARDIOVASCULAR RISK <40 mg/dl - HIGH CARDIOVASCULAR RISK Normal [facility] Comment on above: Performed By: #### L IPID, TSH, BNP, CMP #### [facility] [address] [place] [address] [address] Ana Fish LDL CALC NORMAL SEE BELOW Normal [facility] Comment on above: Result Comment: <100 mg/dl OPTIMAL 100 - 129 mg/dl NEAR OR ABOVE OPTIMAL 130 - 159 mg/dl BORDERLINE HIGH 160 - 189 mg/dl HIGH >190 mg/dl VERY HIGH Performed By: #### L IPID, TSH, BNP, CMP #### [facility] [address] [place] [address] [address] Ana Fish Triglyceride [Mass/Vol] 67 mg/dL Normal <=150 [facility] Comment on above: Performed By: #### L IPID, TSH, BNP, CMP #### [facility] [address] [place] [address] [address] Ana Fish VLDL CALC 13.4 mg/dL Normal [facility] Comment on above: Performed By: #### L IPID, TSH, BNP, CMP #### [facility] [address] [place] [address] Dr. Ana Fish PROF 14(COMP METB)on 023 Albumin [Mass/Vol] 3.8 g/dL Normal 3.4-5.0 [facility] Comment on above: Performed By: #### L IPID, TSH, BNP, CMP #### [facility] [address] [place] [address] Dr. Ana Fish Albumin/Globulin [Mass ratio] 1.3 {ratio} Normal [facility] Comment on above: Performed By: #### L IPID, TSH, BNP, CMP #### [facility] [address] [place] [address] Dr. Ana Fish ALP [Catalytic activity/Vol] 81 U/L Normal 46-116 [facility] Comment on above: Performed By: #### L IPID, TSH, BNP, CMP #### [facility] [address] [place] [address] Dr. Ana Fish ALT [Catalytic activity/Vol] 16 U/L Normal 14-59 [facility] Comment on above: Performed By: #### L IPID, TSH, BNP, CMP #### [facility] [address] [place] [address] Dr. Ana Fish Anion gap [Moles/Vol] 10.3 mmol/L Normal [facility] Comment on above: Performed By: #### L IPID, TSH, BNP, CMP #### [facility] [address] [place] [address] Dr. Ana Fish AST [Catalytic activity/Vol] 18 U/L Normal 15-37 [facility] Comment on above: Performed By: #### L IPID, TSH, BNP, CMP #### [facility] [address] [place] [address] Dr. Ana Fish Bilirubin [Mass/Vol] 0.8 mg/dL Normal 0.2-1.0 [facility] Comment on above: Performed By: #### L IPID, TSH, BNP, CMP #### [facility] [address] [place] [address] Dr. Ana Fish Calcium [Mass/Vol] 9.3 mg/dL Normal 8.5-10.1 [facility] Comment on above: Performed By: #### L IPID, TSH, BNP, CMP #### [facility] [address] [place] [address] Dr. Ana Fish Chloride [Moles/Vol] 103 mmol/L Normal 98-107 The [facility] Comment on above: Performed By: #### L IPID, TSH, BNP, CMP #### [facility] [address] [place] [address] Dr. Ana Fish CO2 [Moles/Vol] 32.1 mmol/L Critically high 21.0-32.0 The [facility] Comment on above: Performed By: #### L IPID, TSH, BNP, CMP #### [facility] [address] [place] [address] Dr. Ana Fish Creatinine [Mass/Vol] 0.85 mg/dL Normal 0.55-1.02 [facility] Comment on above: Performed By: #### L IPID, TSH, BNP, CMP #### [facility] [address] [place] [address] Dr. Ana Fish EGFR-AF BRITISH >60 Normal >=60 [facility] Comment on above: Performed By: #### L IPID, TSH, BNP, CMP #### [facility] [address] [place] [address] Dr. Ana Fish EGFR-NON AF BRITISH >60 Normal >=60 The [facility] Comment on above: Performed By: #### L IPID, TSH, BNP, CMP #### [facility] [address] [place] [address] Dr. Ana Fish Globulin (S) [Mass/Vol] 3.0 g/dL Normal [facility] Comment on above: Performed By: #### L IPID, TSH, BNP, CMP #### [facility] [address] [place] [address] Dr. Ana Fish Glucose [Mass/Vol] 101 mg/dL Normal 74-106 [facility] Comment on above: Performed By: #### L IPID, TSH, BNP, CMP #### [facility] [address] [place] [address] Dr. Ana Fish Potassium [Moles/Vol] 3.4 mmol/L Critically low 3.5-5.1 [facility] Comment on above: Performed By: #### L IPID, TSH, BNP, CMP #### [facility] [address] [place] [address] Dr. Ana Fish Protein [Mass/Vol] 6.8 g/dL Normal 6.4-8.2 [facility] Comment on above: Performed By: #### L IPID, TSH, BNP, CMP #### [facility] [address] [place] [address] Dr. Ana Fish Sodium [Moles/Vol] 142 mmol/L Normal 136-145 [facility] Comment on above: Performed By: #### L IPID, TSH, BNP, CMP #### [facility] [address] [place] [address] Dr. Ana Fish Urea nitrogen [Mass/Vol] 12.0 mg/dL Normal 7.0-18.0 [facility] Comment on above: Performed By: #### L IPID, TSH, BNP, CMP #### [facility] [address] [place] [address] Dr. Ana Fish Urea nitrogen/Creatinine [Mass ratio] 14.1 mg/mg Normal [facility] Comment on above: Performed By: #### L IPID, TSH, BNP, CMP #### [facility] [address] [place] [address] Dr. Ana Fish TSHon 07-24-2022 TSH 2.122 uIU/mL Normal 0.358-3.740 [facility] [facility] Comment on above: Performed By: #### L IPID, TSH, BNP, CMP #### [facility] [address] [place] [address] Dr. Ana Fish XR CHEST AP/PA AND LATon XR CHEST AP/PA AND LAT EXAMINATION: TWO VIEW XR CHEST AP/PA AND LAT, 02/03/2020 COMPARISON: Chest, 01/06/2020. 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 No acute cardiopulmonary disease. 2. Normal heart size. 3. 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 History of cancer?:n Surgeries, chemotherapy, or radiation?:n Type of Exam?:Initial Additional signs and symptoms?:FDC current use of 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 drug ECG 12-LEADon 01-06-2020 Atrial Rate [facility] P [place] [facility] P-R Interval [facility] Q-T Interval [facility] Q-T Interval (corrected) [facility] QRS Duration [facility] QTC Calculation (Bezet) [facility] R [place] [facility] T [place] [facility] Ventricular Rate [facility] XR CHEST AP/PA AND LATon Interval development of mild reticular opacities in the right lower lung zone, suggestive of mild basilar fibrosis. Moderate compression deformity of T12 vertebral body. This is age indeterminate. Recommend further evaluation with cross-sectional imaging. 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 [facility] Interface, Rad In Bryani Speechq - 01/06/2020 7:58 PM EDT EXAMINATION: XR CHEST AP/PA AND LAT 01/06/2020 9:41 am HISTORY: ORDERING SYSTEM PROVIDED HISTORY: Amiodarone surveillance, TECHNOLOGIST PROVIDED HISTORY: Illness/Other Reason for exam: Amiodarone surveillance Cancer History: n Surgery, RadiationHistory: n Encounter Type: Initial Additional signs and symptoms: ORDERING SYSTEM PROVIDED DIAGNOSIS CODES: Z79.899 FDC current use of 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 drug I48.0 PAF [...] indeterminate. Recommend further evaluation with cross-sectional imaging. /matt Workstation ID: [id number] [facility] XR CHEST AP/PA AND LAT EXAMINATION: XR CHEST AP/PA AND LAT 01/06/2020 9:41 am HISTORY: ORDERING SYSTEM PROVIDED HISTORY: Amiodarone surveillance, TECHNOLOGIST PROVIDED HISTORY: Illness/Other Reason for exam: Amiodarone surveillance Cancer History: n Surgery, RadiationHistory: n Encounter Type: Initial Additional signs and symptoms: ORDERING SYSTEM PROVIDED DIAGNOSIS CODES: Z79.899 FDC current use of 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 drug I48.0 PAF [...] indeterminate. Recommend further evaluation with cross-sectional imaging. [employer] Workstation ID: [id number] Dictated by: ARNOLDO HOUGH on ThuJan 06, 2020 4:42:45 PM EDT Transcribed by: RIAZ MURRAY on ThuJan 06, 2020 5:12:15 PM EDT Finalized by: ARNOLDO HOUGH on ThuJan 06, 2020 7:55:51 PM EDT Normal [facility] Comment on above: Order Comment: Injur [...] C408, C141, C48, C45, C119, C120 #### [facility] [address] [place] [address] B/C Ratio 15.0 Ratio Normal [facility] Comment on above: Order Comment: Fasti ng: Unknown Performed By: #### C 80, C400, C408, C141, C48, C45, C119, C120 #### [facility] [address] [place] [address] Calcium [Mass/Vol] 10.2 mg/dL Normal 8.5-10.5 [facility] Comment on above: Order Comment: Fasti ng: Unknown Performed By: #### C 80, C400, C408, C141, C48, C45, C119, C120 #### [facility] [address] [place] [address] Chloride [Moles/Vol] 101 mmol/L Normal 98-107 [facility] Comment on above: Order Comment: Fasti ng: Unknown Performed By: #### C 80, C400, C408, C141, C48, C45, C119, C120 #### [facility] [address] [place] [address] Rd [address] [place] [address] CO2 [Moles/Vol] 30.0 mmol/L Normal 22.0-30.0 [facility] Comment on above: Order Comment: Fasti ng: Unknown Performed By: #### C 80, C400, C408, C141, C48, C45, C119, C120 #### [facility] [address] [place] [address] Creatinine [Mass/Vol] 1.0 mg/dL Normal 0.1-1.2 [facility] Comment on above: Order Comment: Fasti ng: Unknown Performed By: #### C 80, C400, C408, C141, C48, C45, C119, C120 #### [facility] [address] [place] [address] GFR/1.73 sq M.predicted MDRD (S/P/Bld) [Vol rate/Area] 54 mL/min per 1.73 Low >60 [facility] Comment on above: Order Comment: Fasti ng: Unknown Result Comment: The GFR estimate is not adjusted for race. If the patient's race is -Eritrean, the GFR estimate must be multiplied by a factor of 1.21. Performed By: #### C 80, C400, C408, C141, C48, C45, C119, C120 #### [facility] [place] [address] Glucose [Mass/Vol] 91 mg/dL Normal 74-100 [facility] Comment on above: Order Comment: Fasti ng: Unknown Performed By: #### C 80, C400, C408, C141, C48, C45, C119, C120 #### [facility] [address] [place] [address] [place] [address] Potassium [Moles/Vol] 3.9 mmol/L Normal 3.5-5.3 [facility] Comment on above: Order Comment: Fasti ng: Unknown Performed By: #### C 80, C400, C408, C141, C48, C45, C119, C120 #### [facility] [address] [place] [address] [place] [address] Sodium [Moles/Vol] 140 mmol/L Normal 135-145 [facility] Comment on above: Order Comment: Fasti ng: Unknown Performed By: #### C 80, C400, C408, C141, C48, C45, C119, C120 #### [facility] [facility] [address] [place] [address] Urea nitrogen [Mass/Vol] 15 mg/dL Normal 6-22 [facility] Comment on above: Order Comment: Fasti ng: Unknown Performed By: #### C 80, C400, C408, C141, C48, C45, C119, C120 #### [facility] [address] [place] [address] Free T4on 03-24-2019 Free T4 [Mass/Vol] 1.9 ng/dL High 0.7-1.8 [facility] Comment on above: Order Comment: Fasti ng: Unknown Performed By: #### C 80, C400, C408, C141, C48, C45, C119, C120 #### [facility] [address] [place] [address] TSHon 03-24-2019 TSH Qn 2.95 MIU/mL Normal 0.50-6.00 [facility] Comment on above: Performed By: #### C 80, C400, C408, C141, C48, C45, C119, C120 #### [facility] [facility] [address] [place] [id number] Cholesterolon 02-10-2019 Cholesterol [Mass/Vol] 200 mg/dL High <200 [facility] Comment on above: Order Comment: Fasti ng: Unknown Performed By: #### C 80, C400, C408, C141, C48, C45, C119, C120 #### [facility] [place] [address] Direct LDLon 02-10-2019 Cholesterol in LDL [Mass/Vol] 88 mg/dL Normal <130 [facility] Comment on above: Order Comment: Fasti ng: Unknown Result Comment: LDL goal dependent upon individual risk Performed By: #### C 80, C400, C408, C141, C48, C45, C119, C120 #### [facility] [facility] [address] [place] [address] HDLon 02-10-2019 Cholesterol in HDL [Mass/Vol] 90 mg/dL Normal >50 [facility] Comment on above: Order Comment: Fasti ng: Unknown Performed By: #### C 80, C400, C408, C141, C48, C45, C119, C120 #### [facility] [address] [facility] [place] [address] Triglycerideon 02-10-2019 Triglyceride [Mass/Vol] 119 mg/dL Normal <150 [facility] Comment on above: Order Comment: Fasti ng: Unknown Performed By: #### C 80, C400, C408, C141, C48, C45, C119, C120 #### [facility] [address] [place] [address] B12/Folateon 02-09-2019 Cobalamin (Vitamin B12) [Mass/Vol] 989 pg/mL High 239-931 [facility] Comment on above: Order Comment: Fasti ng: Unknown Performed By: #### C 80, C400, C408, C141, C48, C45, C119, C120 #### [facility] [address] [place] [address] [address] [place] [id number] Folate 8.12 ng/mL Normal 2.80-20.00 [facility] Comment [...] C408, C141, C48, C45, C119, C120 #### [facility] [address] [place] [address] [address] [place] [address] Basic Metabolic Panelon 01-23 Anion gap [Moles/Vol] 10.00 mmol/L Normal 8.00-16.00 [facility] Comment on above: Order Comment: Items in this order include: Basic Metabolic Panel , Iron and TIBC, Hepatic Panel, Ferritin, Free T4, TSH, B12/Folate, Vit D 25 [place] (Total), CBC with differential, HgbA1C, Urine, Random, Albumin/Crea , , , , , Testing Performed By: [facility] [address] [place] [address]. [place] [address] Dr. Irma Shahid, Turkey Roll Maker Performed By: #### C 406, C3763, C1573, C80, C400, C408, C409, C136, C48, C45, C215 #### [facility] [place] [address] B/C Ratio 16.0 Ratio Normal [facility] Comment on above: Order Comment: Items in this order include: Basic Metabolic Panel , Iron and TIBC, Hepatic Panel, Ferritin, Free T4, TSH, B12/Folate, Vit D 25 [place] (Total), CBC with differential, HgbA1C, Urine, Random, Albumin/Crea , , , , , Testing Performed By: [facility] [address] [place], [place] [address] Dr. Irma Shahid, Turkey Roll Maker Performed By: #### C 406, C3763, C1573, C80, C400, C408, C409, C136, C48, C45, C215 #### [facility]. [address] [place] [address] [address] [place] [address] Calcium [Mass/Vol] 9.4 mg/dL Normal 8.5-10.5 [facility] Comment on above: Order Comment: Items in this order include: Basic Metabolic Panel , Iron and TIBC, Hepatic Panel, Ferritin, Free T4, TSH, B12/Folate, Vit D 25 [place] (Total), CBC with differential, HgbA1C, Urine, Random, Albumin/Crea , , , , , Testing Performed By: [facility] [address] [place] [address] [address] [address] Irma Shahid, Turkey Roll Maker Performed By: #### C 406, C3763, C1573, C80, C400, C408, C409, C136, C48, C45, C215 #### [facility] [facility] [address] [place] [address] Chloride [Moles/Vol] 101 mmol/L Normal 98-107 [facility] Comment on above: Order Comment: Items in this order include: Basic Metabolic Panel , Iron and TIBC, Hepatic Panel, Ferritin, Free T4, TSH, B12/Folate, Vit D 25 [place] (Total), CBC with differential, HgbA1C, Urine, Random, Albumin/Crea , , , , , Testing Performed By: [facility] [address] [place], [place] [address] Dr. Irma Shahid, Turkey Roll Maker Performed By: #### C 406, C3763, C1573, C80, C400, C408, C409, C136, C48, C45, C215 #### [facility] [address] [place] [address] [address] [place] [address] CO2 [Moles/Vol] 27.0 mmol/L Normal 22.0-30.0 [facility] Comment on above: Order Comment: Items in this order include: Basic Metabolic Panel , Iron and TIBC, Hepatic Panel, Ferritin, Free T4, TSH, B12/Folate, Vit D 25 [place] (Total), CBC with differential, HgbA1C, Urine, Random, Albumin/Crea , , , , , Testing Performed By: [facility] [address] [place], [place] [address] Dr. Irma Shahid, Turkey Roll Maker Performed By: #### C 406, C3763, C1573, C80, C400, C408, C409, C136, C48, C45, C215 #### [facility] [address] [place] [address] [address] [place] [address] Creatinine [Mass/Vol] 1.5 mg/dL High 0.1-1.2 [facility] Comment on above: Order Comment: Items in this order include: Basic Metabolic Panel , Iron and TIBC, Hepatic Panel, Ferritin, Free T4, TSH, B12/Folate, Vit D 25 [place] (Total), CBC with differential, HgbA1C, Urine, Random, Albumin/Crea , , , , , Testing Performed By: [facility] [address] [place] [address] [address] [address] Irma Shahid, Turkey Roll Maker Performed By: #### C 406, C3763, C1573, C80, C400, C408, C409, C136, C48, C45, C215 #### [facility] [address] [place] [address] GFR/1.73 sq M.predicted MDRD (S/P/Bld) [Vol rate/Area] 34 mL/min per 1.73 Low >60 [facility] Comment on above: Order Comment: Items in this order include: Basic Metabolic Panel , Iron and TIBC, Hepatic Panel, Ferritin, Free T4, TSH, B12/Folate, Vit D 25 [place] (Total), CBC with differential, HgbA1C, Urine, Random, Albumin/Crea , , , , , Testing Performed By: [facility] [facility] [place] [address] Dr. Irma Shahid, Turkey Roll Maker Result Comment: The GFR estimate is not adjusted for race. If the patient's race is -Eritrean, the GFR estimate must be multiplied by a factor of 1.21. Performed By: #### C 406, C3763, C1573, C80, C400, C408, C409, C136, C48, C45, C215 #### [facility] [address] [place] [address] Glucose [Mass/Vol] 93 mg/dL Normal 74-100 [facility] Comment on above: Order Comment: Items in this order include: Basic Metabolic Panel , Iron and TIBC, Hepatic Panel, Ferritin, Free T4, TSH, B12/Folate, Vit D 25 [place] (Total), CBC with differential, HgbA1C, Urine, Random, Albumin/Crea , , , , , Testing Performed By: [facility] [address] [place] [address] Dr. Irma Shahid, Turkey Roll Maker Performed By: #### C 406, C3763, C1573, C80, C400, C408, C409, C136, C48, C45, C215 #### [facility] [address] [place] [address] Potassium [Moles/Vol] 4.8 mmol/L Normal 3.5-5.3 [facility] Comment on above: Order Comment: Items in this order include: Basic Metabolic Panel , Iron and TIBC, Hepatic Panel, Ferritin, Free T4, TSH, B12/Folate, Vit D 25 [place] (Total), CBC with differential, HgbA1C, Urine, Random, Albumin/Crea , , , , , Testing Performed By: [facility] [address] [place] [address]. [place] [address] Dr. Irma Shahid, Turkey Roll Maker Performed By: #### C 406, C3763, C1573, C80, C400, C408, C409, C136, C48, C45, C215 #### [facility] [facility] [address] [place] [address] Sodium [Moles/Vol] 138 mmol/L Normal 135-145 [facility] Comment on above: Order Comment: Items in this order include: Basic Metabolic Panel , Iron and TIBC, Hepatic Panel, Ferritin, Free T4, TSH, B12/Folate, Vit D 25 [place] (Total), CBC with differential, HgbA1C, Urine, Random, Albumin/Crea , , , , , Testing Performed By: [facility] [address] [place] [address]. [place] [address] Dr. Irma Shahid, Turkey Roll Maker Performed By: #### C 406, C3763, C1573, C80, C400, C408, C409, C136, C48, C45, C215 #### [facility] [address] [place] [address] [address] [place] [address] Urea nitrogen [Mass/Vol] 24 mg/dL High 6-22 [facility] Comment on above: Order Comment: Items in this order include: Basic Metabolic Panel , Iron and TIBC, Hepatic Panel, Ferritin, Free T4, TSH, B12/Folate, Vit D 25 [place] (Total), CBC with differential, HgbA1C, Urine, Random, Albumin/Crea , , , , , Testing Performed By: [facility] [address] [place] [address]. [place] [address] Dr. Irma Shahid, Turkey Roll Maker Performed By: #### C 406, C3763, C1573, C80, C400, C408, C409, C136, C48, C45, C215 #### [facility] [facility] [place] [address] CBC with differentialon 01-23 Basophils (Bld) [#/Vol] 0.0 K CUMM Normal 0.0-0.2 [facility] Comment on above: Order Comment: Items in this order include: Basic Metabolic Panel , Iron and TIBC, Hepatic Panel, Ferritin, Free T4, TSH, B12/Folate, Vit D 25 [place] (Total), CBC with differential, HgbA1C, Urine, Random, Albumin/Crea , , , , , Testing Performed By: [facility] [address] [place], [place] [address] Dr. Irma Shahid, Turkey Roll Maker Performed By: #### C 406, C3763, C1573, C80, C400, C408, C409, C136, C48, C45, C215 #### [facility] [address] [place] [address] [place] [address] Basophils/100 WBC (Bld) 0.4 % Normal 0.0-3.0 [facility] Comment on above: Order Comment: Items in this order include: Basic Metabolic Panel , Iron and TIBC, Hepatic Panel, Ferritin, Free T4, TSH, B12/Folate, Vit D 25 [place] (Total), CBC with differential, HgbA1C, Urine, Random, Albumin/Crea , , , , , Testing Performed By: [facility] [address] [place] [address]. [place] [address] Dr. Irma Shahid, Turkey Roll Maker Performed By: #### C 406, C3763, C1573, C80, C400, C408, C409, C136, C48, C45, C215 #### [facility] [address] [place] [address] [address] [place] [address] Eosinophils (Bld) [#/Vol] 0.1 K CUMM Normal 0.0-0.4 [facility] Comment on above: Order Comment: Items in this order include: Basic Metabolic Panel , Iron and TIBC, Hepatic Panel, Ferritin, Free T4, TSH, B12/Folate, Vit D 25 [place] (Total), CBC with differential, HgbA1C, Urine, Random, Albumin/Crea , , , , , Testing Performed By: [facility] [address] [place] [address] Dr. Irma Shahid, Turkey Roll Maker Performed By: #### C 406, C3763, C1573, C80, C400, C408, C409, C136, C48, C45, C215 #### [facility] [address] [place] [address] [address] [place] [address] Eosinophils/100 WBC (Bld) 1.5 % Normal 0.0-7.0 [facility] Comment on above: Order Comment: Items in this order include: Basic Metabolic Panel , Iron and TIBC, Hepatic Panel, Ferritin, Free T4, TSH, B12/Folate, Vit D 25 [place] (Total), CBC with differential, HgbA1C, Urine, Random, Albumin/Crea , , , , , Testing Performed By: [facility] [address] [place] [address] Dr. Irma Shahid, Turkey Roll Maker Performed By: #### C 406, C3763, C1573, C80, C400, C408, C409, C136, C48, C45, C215 #### [facility] [address] [place] [address] [address] [place] [address] Erythrocyte distribution width (RBC) [Ratio] 14.4 % Normal 11.5-15.5 [facility] Comment on above: Order Comment: Items in this order include: Basic Metabolic Panel , Iron and TIBC, Hepatic Panel, Ferritin, Free T4, TSH, B12/Folate, Vit D 25 [place] (Total), CBC with differential, HgbA1C, Urine, Random, Albumin/Crea , , , , , Testing Performed By: [facility] [address] [place] [address] [address] [address] Irma Shahid, Turkey Roll Maker Performed By: #### C 406, C3763, C1573, C80, C400, C408, C409, C136, C48, C45, C215 #### [facility] [address] [place] [address] [address] [place] [id number] Hematocrit (Bld) [Volume fraction] 38.4 % Normal 37.0-47.0 [facility] Comment on above: Order Comment: Items in this order include: Basic Metabolic Panel , Iron and TIBC, Hepatic Panel, Ferritin, Free T4, TSH, B12/Folate, Vit D 25 [place] (Total), CBC with differential, HgbA1C, Urine, Random, Albumin/Crea , , , , , Testing Performed By: [facility] [address] [place], [place] [address] Dr. Imra Shahid, Turkey Roll Maker Performed By: #### C 406, C3763, C1573, C80, C400, C408, C409, C136, C48, C45, C215 #### [facility] [address] [place] [address] [address] [place] [id number] Hemoglobin (Bld) [Mass/Vol] 12.7 g/dL Normal 11.5-15.5 [facility] Comment on above: Order Comment: Items in this order include: Basic Metabolic Panel , Iron and TIBC, Hepatic Panel, Ferritin, Free T4, TSH, B12/Folate, Vit D 25 [place] (Total), CBC with differential, HgbA1C, Urine, Random, Albumin/Crea , , , , , Testing Performed By: [facility] [address] [place], [place] [address] Dr. Irma Shahid, Turkey Roll Maker Performed By: #### C 406, C3763, C1573, C80, C400, C408, C409, C136, C48, C45, C215 #### [facility] [address] [place] [address] [place] [address] ImmGrn # 0.0 K CUMM Normal 0.0-0.3 [facility] Comment on above: Order Comment: Items in this order include: Basic Metabolic Panel , Iron and TIBC, Hepatic Panel, Ferritin, Free T4, TSH, B12/Folate, Vit D 25 [place] (Total), CBC with differential, HgbA1C, Urine, Random, Albumin/Crea , , , , , Testing Performed By: [facility] [address] [place] [address] Dr. Irma Shahid, Turkey Roll Maker Performed By: #### C 406, C3763, C1573, C80, C400, C408, C409, C136, C48, C45, C215 #### [facility] [address] [place] [address] [address] [place] [address] ImmGrn % 0.3 % Normal 0.0-3.0 [facility] Comment on above: Order Comment: Items in this order include: Basic Metabolic Panel , Iron and TIBC, Hepatic Panel, Ferritin, Free T4, TSH, B12/Folate, Vit D 25 [place] (Total), CBC with differential, HgbA1C, Urine, Random, Albumin/Crea , , , , , Testing Performed By: [facility] [address] [place] [address] Dr. Irma Shahid, Turkey Roll Maker Performed By: #### C 406, C3763, C1573, C80, C400, C408, C409, C136, C48, C45, C215 #### [facility]. [address] [place] [address] [address] [place] [address] Lymphocytes (Bld) [#/Vol] 1.2 K CUMM Normal 0.7-4.5 [facility] Comment on above: Order Comment: Items in this order include: Basic Metabolic Panel , Iron and TIBC, Hepatic Panel, Ferritin, Free T4, TSH, B12/Folate, Vit D 25 [place] (Total), CBC with differential, HgbA1C, Urine, Random, Albumin/Crea , , , , , Testing Performed By: [facility] [address] [place] [address] Dr. Irma Shahid, Turkey Roll Maker Performed By: #### C 406, C3763, C1573, C80, C400, C408, C409, C136, C48, C45, C215 #### [facility] [address] [facility] [address] [place] [address] Lymphocytes/100 WBC (Bld) 13.6 % Low 14.0-46.0 [facility] Comment on above: Order Comment: Items in this order include: Basic Metabolic Panel , Iron and TIBC, Hepatic Panel, Ferritin, Free T4, TSH, B12/Folate, Vit D 25 [place] (Total), CBC with differential, HgbA1C, Urine, Random, Albumin/Crea , , , , , Testing Performed By: [facility] [address] [place] [address]. [place] [id number] Dr. Irma Shahid, Turkey Roll Maker Performed By: #### C 406, C3763, C1573, C80, C400, C408, C409, C136, C48, C45, C215 #### [facility] [address] [place] [address] [address] [place] [address] MCH (RBC) [Entitic mass] 31.3 pg High 27.0-31.0 [facility] Comment on above: Order Comment: Items in this order include: Basic Metabolic Panel , Iron and TIBC, Hepatic Panel, Ferritin, Free T4, TSH, B12/Folate, Vit D 25 [place] (Total), CBC with differential, HgbA1C, Urine, Random, Albumin/Crea , , , , , Testing Performed By: [facility] [address] [place] [address]. [place] [address] Dr. Irma Shahid, Turkey Roll Maker Performed By: #### C 406, C3763, C1573, C80, C400, C408, C409, C136, C48, C45, C215 #### [facility] [address] [place] [address] [address] [place] [address] MCHC (RBC) [Mass/Vol] 33.1 g/dL Normal 32.0-36.0 [facility] Comment on above: Order Comment: Items in this order include: Basic Metabolic Panel , Iron and TIBC, Hepatic Panel, Ferritin, Free T4, TSH, B12/Folate, Vit D 25 [place] (Total), CBC with differential, HgbA1C, Urine, Random, Albumin/Crea , , , , , Testing Performed By: [facility] [address] [place] [address] Dr. Irma Shahid, Turkey Roll Maker Performed By: #### C 406, C3763, C1573, C80, C400, C408, C409, C136, C48, C45, C215 #### [facility] [address] [place] [address] [address] [place] [id number] MCV (RBC) [Entitic vol] 94.6 fL Normal 78.0-100.0 [facility] Comment on above: Order Comment: Items in this order include: Basic Metabolic Panel , Iron and TIBC, Hepatic Panel, Ferritin, Free T4, TSH, B12/Folate, Vit D 25 [place] (Total), CBC with differential, HgbA1C, Urine, Random, Albumin/Crea , , , , , Testing Performed By: [facility] [address] [place] [address] Dr. Irma Shahid, Turkey Roll Maker Performed By: #### C 406, C3763, C1573, C80, C400, C408, C409, C136, C48, C45, C215 #### [facility] [address] [place] [address] [address] [place] [id number] Monocytes (Bld) [#/Vol] 0.8 K CUMM Normal 0.1-1.0 [facility] Comment on above: Order Comment: Items in this order include: Basic Metabolic Panel , Iron and TIBC, Hepatic Panel, Ferritin, Free T4, TSH, B12/Folate, Vit D 25 [place] (Total), CBC with differential, HgbA1C, Urine, Random, Albumin/Crea , , , , , Testing Performed By: [facility] [address] [place] [address] Dr. Irma Shahid, Turkey Roll Maker Performed By: #### C 406, C3763, C1573, C80, C400, C408, C409, C136, C48, C45, C215 #### [facility] [address] [place] [address] [address] [place] [address] Monocytes/100 WBC (Bld) 8.7 % Normal 4.0-13.0 [facility] Comment on above: Order Comment: Items in this order include: Basic Metabolic Panel , Iron and TIBC, Hepatic Panel, Ferritin, Free T4, TSH, B12/Folate, Vit D 25 [place] (Total), CBC with differential, HgbA1C, Urine, Random, Albumin/Crea , , , , , Testing Performed By: [facility] [address] [place] [address]. [place] [id number] Dr. Irma Shahid, Turkey Roll Maker Performed By: #### C 406, C3763, C1573, C80, C400, C408, C409, C136, C48, C45, C215 #### [facility] [address] [place] [address] [address] [place] [address] Neutrophils (Bld) [#/Vol] 6.8 K CUMM Normal 1.8-7.8 [facility] Comment on above: Order Comment: Items in this order include: Basic Metabolic Panel , Iron and TIBC, Hepatic Panel, Ferritin, Free T4, TSH, B12/Folate, Vit D 25 [place] (Total), CBC with differential, HgbA1C, Urine, Random, Albumin/Crea , , , , , Testing Performed By: [facility] [address] [place] [address] Irma Shahid, Turkey Roll Maker Performed By: #### C 406, C3763, C1573, C80, C400, C408, C409, C136, C48, C45, C215 #### [facility] [address] [place] [address] [address] [place] [address] Neutrophils/100 WBC (Bld) 75.5 % High 40.0-74.0 [facility] Comment on above: Order Comment: Items in this order include: Basic Metabolic Panel , Iron and TIBC, Hepatic Panel, Ferritin, Free T4, TSH, B12/Folate, Vit D 25 [place] (Total), CBC with differential, HgbA1C, Urine, Random, Albumin/Crea , , , , , Testing Performed By: [facility] [facility] [place] [address] Dr. Irma Shahid, Turkey Roll Maker Performed By: #### C 406, C3763, C1573, C80, C400, C408, C409, C136, C48, C45, C215 #### [facility] [address] [place] [address] Platelet mean volume (Bld) [Entitic vol] 10.9 fL Normal 8.9-12.6 [facility] Comment on above: Order Comment: Items in this order include: Basic Metabolic Panel , Iron and TIBC, Hepatic Panel, Ferritin, Free T4, TSH, B12/Folate, Vit D 25 [place] (Total), CBC with differential, HgbA1C, Urine, Random, Albumin/Crea , , , , , Testing Performed By: [facility] [address] [place] [address]. [place] [address] Dr. Irma Shahid, Turkey Roll Maker Performed By: #### C 406, C3763, C1573, C80, C400, C408, C409, C136, C48, C45, C215 #### [facility] [address] [place] [address] Platelets (Bld) [#/Vol] 283 K CUMM Normal 130-400 [facility] Comment on above: Order Comment: Items in this order include: Basic Metabolic Panel , Iron and TIBC, Hepatic Panel, Ferritin, Free T4, TSH, B12/Folate, Vit D 25 [place] (Total), CBC with differential, HgbA1C, Urine, Random, Albumin/Crea , , , , , Testing Performed By: [facility] [address] [place] [address]. [place] [address] Dr. Irma Shahid, Turkey Roll Maker Performed By: #### C 406, C3763, C1573, C80, C400, C408, C409, C136, C48, C45, C215 #### [facility] [address] [place] [address] RBC (Bld) [#/Vol] 4.06 M CUMM Normal 3.80-5.10 [facility] Comment on above: Order Comment: Items in this order include: Basic Metabolic Panel , Iron and TIBC, Hepatic Panel, Ferritin, Free T4, TSH, B12/Folate, Vit D 25 [place] (Total), CBC with differential, HgbA1C, Urine, Random, Albumin/Crea , , , , , Testing Performed By: [facility] [address] [place] [address] Dr. Irma Shahid, Turkey Roll Maker Performed By: #### C 406, C3763, C1573, C80, C400, C408, C409, C136, C48, C45, C215 #### [facility] [address] [place] [address] [address] [place] [address] WBC (Bld) [#/Vol] 9.1 K CUMM Normal 3.8-10.6 [facility] Comment on above: Order Comment: Items in this order include: Basic Metabolic Panel , Iron and TIBC, Hepatic Panel, Ferritin, Free T4, TSH, B12/Folate, Vit D 25 [place] (Total), CBC with differential, HgbA1C, Urine, Random, Albumin/Crea , , , , , Testing Performed By: [facility] [address] [place] [address] Irma Shahid, Turkey Roll Maker Performed By: #### C 406, C3763, C1573, C80, C400, C408, C409, C136, C48, C45, C215 #### [facility] [address] [place] [address] [address] [place] [address] Culture, Urineon 02-09-2019 RPT Microbiology results Abnormal [facility] Comment on above: Order Comment: Fasti ng: Unknown Result Comment: Elda l Result: Less than 10,000 CFU/mL of 2 or more organisms present. This usually indicates vaginal, urethral and/or skin contamination. ID and sensitivities will not be performed. Performed By: #### C 80, C400, C408, C141, C48, C45, C119, C120 #### [facility] [address] [place] [address] Ferritinon 02-09-2019 Ferritin [Mass/Vol] 103.7 ng/mL Normal 15.0-200.0 [facility] Comment on above: Order Comment: Fasti ng: Unknown Performed By: #### C 80, C400, C408, C141, C48, C45, C119, C120 #### [facility] [address] [place] [address] Free T4on 02-09-2019 Free T4 [Mass/Vol] 2.0 ng/dL High 0.7-1.8 [facility] Comment on above: Performed By: #### C 80, C400, C408, C141, C48, C45, C119, C120 #### [facility] [address] [facility] [place] [address] Hepatic Panelon 02-09-2019 Albumin [Mass/Vol] 4.6 g/dL Normal 3.5-5.0 [facility] Comment on above: Performed By: #### C 80, C400, C408, C141, C48, C45, C119, C120 #### [facility] [address] [place] [address] Alk Phos 57 U/L Normal 23-159 [facility] Comment on above: Performed By: #### C 80, C400, C408, C141, C48, C45, C119, C120 #### [facility] [address] [place] [address] ALT [Catalytic activity/Vol] 27 U/L Normal 10-52 [facility] Comment on above: Performed By: #### C 80, C400, C408, C141, C48, C45, C119, C120 #### [facility] [address] [place] [address] AST [Catalytic activity/Vol] 29 U/L Normal 11-43 [facility] Comment on above: Performed By: #### C 80, C400, C408, C141, C48, C45, C119, C120 #### [facility] [address] [place] [address] Bili (Direct) 0.0 mg/dL Normal 0.0-0.3 [facility] Comment on above: Performed By: #### C 80, C400, C408, C141, C48, C45, C119, C120 #### [facility] [address] [place] [address] Bili (Indirect) 0.3 mg/dL Normal 0.0-1.1 [facility] Comment on above: Performed By: #### C 80, C400, C408, C141, C48, C45, C119, C120 #### [facility] [address] [place] [address] Bilirubin [Mass/Vol] 0.8 mg/dL Normal 0.2-1.3 [facility] Comment on above: Performed By: #### C 80, C400, C408, C141, C48, C45, C119, C120 #### [facility] [address] [facility] [address] [place] [address] Protein [Mass/Vol] 6.9 g/dL Normal 6.3-8.4 [facility] Comment on above: Performed By: #### C 80, C400, C408, C141, C48, C45, C119, C120 #### [facility] [facility] [address] [place] [address] [id number] 02-09-2019 HbA1c (Bld) [Mass fraction] 5.3 % Normal <5.7 [facility] Comment on above: Order Comment: Fasti ng: Unknown Result Comment: Refe rence Interval: Normal: below 5.7%. Prediabetes: 5.7% to 6.4%. Diabetes: 6.5% or above. Performed By: #### C 80, C400, C408, C141, C48, C45, C119, C120 #### [facility] [address] [place] [address] Iron and TIBCon 02-09-2019 % Saturation 36 % Normal 20-55 [facility] Comment on above: Order Comment: Fasti ng: Unknown Performed By: #### C 80, C400, C408, C141, C48, C45, C119, C120 #### [facility] [address] [place] [address] Iron [Mass/Vol] 97 ug/dL Normal 37-170 [facility] Comment on above: Order Comment: Fasti ng: Unknown Performed By: #### C 80, C400, C408, C141, C48, C45, C119, C120 #### [facility] [address] [facility] [address] [place] [address] TIBC 271 ug/dL Normal 265-497 [facility] Comment on above: Order Comment: Fasti ng: Unknown Performed By: #### C 80, C400, C408, C141, C48, C45, C119, C120 #### [facility] [address] [facility] [address] [place] [address] TSHon 02-09-2019 TSH Qn 1.54 MIU/mL Normal 0.50-6.00 [facility] Comment on above: Order Comment: Fasti ng: Unknown Performed By: #### C 80, C400, C408, C141, C48, C45, C119, C120 #### [facility] [address] [place] [address] Urine, Random, Albumin/Creao n 02-09-2019 Albumin DL <= 20 mg/L (U) [Mass/Vol] 2.6 mg/dL High 0.0-1.6 [facility] Comment on above: Order Comment: Fasti ng: Unknown Performed By: #### C 80, C400, C408, C141, C48, C45, C119, C120 #### [facility] [address] [facility] [address] [place] [address] Creatinine (U) [Mass/Vol] 179.0 mg/dL Normal 28.0-217.0 [facility] Comment on above: Order Comment: Fasti ng: Unknown Performed By: #### C 80, C400, C408, C141, C48, C45, C119, C120 #### [facility] [address] [facility] [address] [place] [address] Urine Microalb/ Creat Ratio 14.5 mcg/mg creat [...] C408, C141, C48, C45, C119, C120 #### [facility] [address] [facility] [address] [place] [address] Vit D 25 [place] (Total)on 2018 Vit D 25 [place] (Total) 34.3 ng/ml Normal 31.0-100.0 [facility] Comment on above: Order Comment: Fasti ng: Unknown Result Comment: Defi ciency <10 ng/ml Insufficiency 10-30 ng/ml Sufficiency 31-100 ng/ml Toxicity >100 ng/ml Performed By: #### C 80, C400, C408, C141, C48, C45, C119, C120 #### [facility] [address] [place] [address] MA Mammo Digital Screening b ilat (NB)on 10-06-2018 MA Mammo Digital Screening bilat (NB) EXAMINATION TYPE: KATERINA Alonso Digital Screening bilat (NB) DATE OF EXAM : 10/06/2018 2:34 PM PATIENT HISTORY: Menarche at age 14. Patient has no children. Postmenopausal. Maternal aunt had breast cancer at or over age 50. PRIOR STUDIES: 03/30/2007, 03/02/2009, 12/04/2010, 10/05/2012, 07/10/2015 REASON FOR STUDY: Breast Screening. TECHNIQUE: Digital mammography views were obtained. Computer-aided detection utilizing ebindleCAD reader has been performed. BREAST COMPOSITION: The breast tissue is almost entirely fatty FINDINGS: There are no suspicious abnormalities. There has been no significant interval change. IMPRESSION: No mammographic evidence for malignancy. BI-RADS Code: 1-Negative RECOMMENDATION: 1. Screening Mammogram in 1 year [facility] thanks you for the opportunity to care for your patient. Workstation ID: [id number] FINAL REPORT Dictated By: Becka Valentine MD 10/06/2018 14:45 Assigned Physician: Becka Valentine MD Reviewed and Electronically Signed By: Becka Valentine MD 10/06/2018 14:45 Transcribed by: PIERRE 10/06/2018 14:45 Technologist: JAQUELINE Golden [facility] XR Bone Density DXA Axial Sk [facility] 10-06-2018 DXA Skeletal system Views for bone density == Bone Density Report == Name: DEBRA RODRIGUEZ Age: 77 Sex: Female Ethnicity: White Date of : 1940 -- Indication: postmenopausal osteoporosis; height loss; inflammatory bowel disease; hysterectomy; Referring Provider: NIA ALCARAZ Study: Bone densitometry was performed. Exam Date: October 06, 2018 Accession number: [id number] Bone Density: -- Region BMD T-score Z-score [...] cause or contribute to bone loss. The [place] [employer] (AACE) and National [...] MD 10/08/2018 08:25 10/08/2018 08:21 Technologist: JONAS Normal [facility] ECG 12-LEADon 09-29-2018 Atrial Rate [facility] P [place] [facility] P-R Interval [facility] Q-T Interval [facility] Q-T Interval (corrected) [facility] QRS Duration [facility] QTC Calculation (Bezet) [facility] R [place] [facility] T [place] [facility] Ventricular Rate [facility] Basic Metabolic Panelon 06-25 Anion gap [Moles/Vol] 8.50 mmol/L Normal 8.00-16.00 [facility] Comment on above: Order Comment: Fasti ng: Unknown Performed By: #### C 80, C400, C408, C141, C48, C45, C119, C120 #### [facility] [address] [place] [address] B/C Ratio 15.0 Ratio Normal [facility] Comment on above: Order Comment: Fasti ng: Unknown Performed By: #### C 80, C400, C408, C141, C48, C45, C119, C120 #### [facility] [address] [place] [address] Calcium [Mass/Vol] 9.9 mg/dL Normal 8.5-10.5 [facility] Comment on above: Order Comment: Fasti ng: Unknown Performed By: #### C 80, C400, C408, C141, C48, C45, C119, C120 #### [facility] [address] [place] [address] Chloride [Moles/Vol] 102 mmol/L Normal 98-107 [facility] Comment on above: Order Comment: Fasti ng: Unknown Performed By: #### C 80, C400, C408, C141, C48, C45, C119, C120 #### [facility] [address] [facility] [place] [address] CO2 [Moles/Vol] 27.5 mmol/L Normal 22.0-30.0 [facility] Comment on above: Order Comment: Fasti ng: Unknown Performed By: #### C 80, C400, C408, C141, C48, C45, C119, C120 #### [facility] [address] [facility] [place] [address] Creatinine [Mass/Vol] 1.0 mg/dL Normal 0.1-1.2 [facility] Comment on above: Order Comment: Fasti ng: Unknown Performed By: #### C 80, C400, C408, C141, C48, C45, C119, C120 #### [facility] [address] [facility] [place] [address] GFR/1.73 sq M.predicted MDRD (S/P/Bld) [Vol rate/Area] 54 mL/min per 1.73 Low >60 [facility] Comment on above: Order Comment: Fasti ng: Unknown Result Comment: The GFR estimate is not adjusted for race. If the patient's race is -Eritre[place], the GFR estimate must be multiplied by a factor of 1.21. Performed By: #### C 80, C400, C408, C141, C48, C45, C119, C120 #### [facility] [address] [facility] [place] [address] Glucose [Mass/Vol] 91 mg/dL Normal 74-100 [facility] Comment on above: Order Comment: Fasti ng: Unknown Performed By: #### C 80, C400, C408, C141, C48, C45, C119, C120 #### [facility] [address] [facility] [place] [address] Potassium [Moles/Vol] 3.8 mmol/L Normal 3.5-5.3 [facility] Comment on above: Order Comment: Fasti ng: Unknown Performed By: #### C 80, C400, C408, C141, C48, C45, C119, C120 #### [facility] [address] [place] [address] Sodium [Moles/Vol] 138 mmol/L Normal 135-145 [facility] Comment on above: Order Comment: Fasti ng: Unknown Performed By: #### C 80, C400, C408, C141, C48, C45, C119, C120 #### [facility] [address] [facility] [address] [place] [address] Urea nitrogen [Mass/Vol] 15 mg/dL Normal 6-22 [facility] Comment on above: Order Comment: Fasti ng: Unknown Performed By: #### C 80, C400, C408, C141, C48, C45, C119, C120 #### [facility] [address] [facility] [place] [address] Direct LDLon 07-07-2018 Cholesterol in LDL [Mass/Vol] 126 mg/dL Normal <130 [facility] Comment on above: Order Comment: Items in this order include: Free T4, Direct LDL , Urine, Random, Albumin/Crea , HDL, TSH, Triglyceride, Basic Metabolic Panel , Hepatic Panel, , Fasting: Unknown Result Comment: LDL goal dependent upon individual risk Performed By: #### C 80, C400, C408, C141, C48, C45, C119, C120 #### [facility] [address] [facility] [place] [address] Free T4on 07-07-2018 Free T4 [Mass/Vol] 1.5 ng/dL Normal 0.7-1.8 [facility] Comment on above: Order Comment: Items in this order include: Free T4, Direct LDL , Urine, Random, Albumin/Crea , HDL, TSH, Triglyceride, Basic Metabolic Panel , Hepatic Panel, , Fasting: Unknown Performed By: #### C 80, C400, C408, C141, C48, C45, C119, C120 #### [facility] [address] [facility] [address] [place] [address] HDLon 07-07-2018 Cholesterol in HDL [Mass/Vol] 109 mg/dL Normal >50 [facility] Comment on above: Order Comment: Items in this order include: Free T4, Direct LDL , Urine, Random, Albumin/Crea , HDL, TSH, Triglyceride, Basic Metabolic Panel , Hepatic Panel, , Fasting: Unknown Performed By: #### C 80, C400, C408, C141, C48, C45, C119, C120 #### [facility] [address] [facility] [address] [place] [address] Hepatic Panelon 07-07-2018 Albumin [Mass/Vol] 4.9 g/dL Normal 3.5-5.0 [facility] Comment on above: Order Comment: Fasti ng: Unknown Performed By: #### C 80, C400, C408, C141, C48, C45, C119, C120 #### [facility] [address] [facility] [address] [place] [address] Alk Phos 79 U/L Normal 23-159 [facility] Comment on above: Order Comment: Fasti ng: Unknown Performed By: #### C 80, C400, C408, C141, C48, C45, C119, C120 #### [facility] [facility] [address] [place] [address] ALT [Catalytic activity/Vol] 21 U/L Normal 10-52 [facility] Comment on above: Order Comment: Fasti ng: Unknown Performed By: #### C 80, C400, C408, C141, C48, C45, C119, C120 #### [facility] [address] [facility] [place] [address] AST [Catalytic activity/Vol] 24 U/L Normal 11-43 [facility] Comment on above: Order Comment: Fasti ng: Unknown Performed By: #### C 80, C400, C408, C141, C48, C45, C119, C120 #### [facility] [address] [facility] [address] [place] [address] Bili (Direct) 0.0 mg/dL Normal 0.0-0.3 [facility] Comment on above: Order Comment: Fasti ng: Unknown Performed By: #### C 80, C400, C408, C141, C48, C45, C119, C120 #### [facility] [address] [facility] [address] [place] [address] Bili (Indirect) 0.3 mg/dL Normal 0.0-1.1 [facility] Comment on above: Order Comment: Fasti ng: Unknown Performed By: #### C 80, C400, C408, C141, C48, C45, C119, C120 #### [facility] [address] [place] [address] [address] [place] [address] Bilirubin [Mass/Vol] 1.0 mg/dL Normal 0.2-1.3 [facility] Comment on above: Order Comment: Fasti ng: Unknown Performed By: #### C 80, C400, C408, C141, C48, C45, C119, C120 #### [facility] [address] [place] [address] [address] [place] [address] Protein [Mass/Vol] 7.5 g/dL Normal 6.3-8.4 [facility] Comment on above: Order Comment: Fasti ng: Unknown Performed By: #### C 80, C400, C408, C141, C48, C45, C119, C120 #### [facility] [address] [place] [address] [address] [place] [address] TSHon 07-07-2018 TSH Qn 5.11 MIU/mL Normal 0.50-6.00 [facility] Comment on above: Order Comment: Items in this order include: Free T4, Direct LDL , Urine, Random, Albumin/Crea , HDL, TSH, Triglyceride, Basic Metabolic Panel , Hepatic Panel, , Fasting: Unknown Performed By: #### C 80, C400, C408, C141, C48, C45, C119, C120 #### [facility] [facility], [facility] [address] [place] [address] Triglycerideon 07-07-2018 CO2 [Moles/Vol] 107 mg/dL Normal <150 [facility] Comment on above: Order Comment: Fasti ng: Unknown Performed By: #### C 80, C400, C408, C141, C48, C45, C119, C120 #### [facility], [facility] [address] [place] [address] Urine, Random, Albumin/Creao n 07-07-2018 Albumin DL <= 20 mg/L (U) [Mass/Vol] 11.7 mg/dL High 0.0-1.6 [facility] Comment on above: Order Comment: Items in this order include: Free T4, Direct LDL , Urine, Random, Albumin/Crea , HDL, TSH, Triglyceride, Basic Metabolic Panel , Hepatic Panel, , Fasting: Unknown Performed By: #### C 80, C400, C408, C141, C48, C45, C119, C120 #### [facility], [facility] [address] [place] [address] Creatinine (U) [Mass/Vol] 95.2 mg/dL Normal 28.0-217.0 [facility] Comment on above: Order Comment: Items in this order include: Free T4, Direct LDL , Urine, Random, Albumin/Crea , HDL, TSH, Triglyceride, Basic Metabolic Panel , Hepatic Panel, , Fasting: Unknown Performed By: #### C 80, C400, C408, C141, C48, C45, C119, C120 #### [facility], [facility] [address]- [place] [address] Urine Microalb/ Creat Ratio 122.9 mcg/mg creat High 0.0-29.9 [facility] Comment on above: Order Comment: Items [...] C408, C141, C48, C45, C119, C120 #### [facility], [facility] [address] [place] [address] CBC WITH AUTO DIFFERENTIALon 07-02-2018 Basophils #/vol (Bld) 0.04 10*3/uL [facility] Basophils/100 WBC (Bld) 0.5 % [facility] Eosinophils #/vol (Bld) 0.11 10*3/uL [facility] Eosinophils/100 WBC (Bld) 1.4 % [facility] Erythrocyte distribution width Entitic volume (RBC) 15.1 % High 11.6 - 14.8 % [facility] Hematocrit Volume Fraction (Bld) 38.0 % 36 - 46 % [facility] Hemoglobin mass conc (Bld) 12.6 g/dL 12 - 16 g/dL [facility] Immature granulocytes #/vol (Bld) 0.06 10*3/uL [facility] Immature granulocytes/100 WBC (Bld) 0.80 % [facility] Comment on above: The IG parameter is the percentage of metamyelocytes, myelocytes, and promyelocytes. Interpretation and review of laboratory results Abnormal [facility] Lymphocytes #/vol (Bld) 0.69 10*3/uL Low [facility] Lymphocytes/100 WBC (Bld) 8.7 % [facility] MCH Entitic mass (RBC) 32.4 pg 26 - 34 pg [facility] MCHC mass conc (RBC) 33.2 g/dL 31 - 37 g/dL [facility] MCV Entitic volume (RBC) 97.7 fL 80 - 100 fL [facility] Monocytes #/vol (Bld) 0.74 10*3/uL [facility] Monocytes/100 WBC (Bld) 9.3 % [facility] Neutrophils #/vol (Bld) 6.28 10*3/uL [facility] Neutrophils/100 WBC (Bld) 79.3 % [facility] Nucleated RBC #/vol (Bld) 0.00 10*3/uL [facility] Nucleated RBC/100 WBC Ratio (Bld) 0.0 % [facility] Platelet mean volume Entitic volume (Bld) 10.8 fL 9 - 15.5 fL [facility] Platelets #/vol (Bld) 216 10*3/uL [facility] RBC #/vol (Bld) 3.89 10*6/uL Low [facility] WBC #/vol (Bld) 7.92 10*3/uL [facility] Chem 7on 07-02-2018 Anion gap molar conc 16 mmol/L 10 - 20 mmol/L [facility] Chloride molar conc 103 mmol/L 98 - 108 mmol/L [facility] Creatinine mass conc 1.12 mg/dL 0.6 - 1.2 mg/dL [facility] GFR/1.73 sq M predicted among non-blacks MDRD vol rate/area (S/P/Bld) The eGFR should be used for monitoring renal function only and not for medication dosing. [facility] GFR/1.73 sq M.predicted CKD-EPI vol rate/area (S/P/Bld) 47 Low >=60 mL/min/1.73 m2 [facility] Glucose mass conc 117 mg/dL High 65 - 99 mg/dL [facility] HCO3 molar conc 27 mmol/L 21 - 32 mmol/L [facility] Interpretation and review of laboratory results Abnormal [facility] Potassium molar conc 4.3 mmol/L 3.5 - 5.1 mmol/L [facility] Sodium molar conc 142 mmol/L 135 - 145 mmol/L [facility] Urea nitrogen mass conc 24 mg/dL 8 - 25 mg/dL [facility] Urea nitrogen/Creatinine mass ratio 21.4 mg/mg High [facility] Otheron 07-02-2018 Extra Tube Hold for add-ons. [facility] Comment on above: Auto resulted. URINALYSISon 07-02-2018 Bacteria Auto Ql (U) Rare Abnormal None Seen /hpf [facility] Bilirubin Ql (U) Negative Negative [facility] Clarity Refractometry automated Nom (U) Clear Clear [facility] Color Nom (U) Yellow Colorless, Yellow [facility] Epithelial cells.squamous Auto #/area (Urine sed) <1 [facility] Glucose Automated test strip mass conc (U) Negative Negative mg/dL [facility] Hemoglobin Automated test strip Ql (U) Negative Negative [facility] Hyaline casts Auto #/area (Urine sed) 3-5 Abnormal 0 - 2 /lpf [facility] Interpretation and review of laboratory results Abnormal [facility] Ketones mass conc (U) Negative Negative mg/dL [facility] Leukocyte esterase Automated test strip Ql (U) Negative Negative [facility] Mucus Auto #/area (Urine sed) Rare None Seen, Rare /lpf [facility] Nitrite Automated test strip Ql (U) Negative Negative [facility] pH (U) 6.0 [pH] [facility] Protein mass conc (U) Negative Negative mg/dL [facility] RBC Auto #/area (Urine sed) <1 [facility] Specific gravity Relative Density (U) 1.010 [facility] Urobilinogen mass conc (U) <2.0 <2.0 mg/dL [facility] WBC Auto #/area (Urine sed) <1 [facility] Microscopic examination is performed on all urinalysis samples and only positive findings are reported. The test for blood on the chemical analytic portion of urinalysis may also be positive due to hemoglobinuria and myoglobinuria and if red blood cells are present they are quantified by microscopic examination. [facility] Hepatic Function Panelon Alanine aminotransferase (ALT) 10 U/L Invalid Interpretation Code 0 - 40 U/L [facility] Albumin 4.4 g/dL Invalid Interpretation Code 3.2 - 5.2 g/dL [facility] Alkaline phosphatase (ALP) 58 U/L Invalid Interpretation Code 40 - 150 U/L [facility] Aspartate aminotransferase (AST) 15 U/L Invalid Interpretation Code 0 - 45 U/L [facility] Bilirubin (conjugated) 0.2 mg/dL Invalid Interpretation Code 0 - 0.4 mg/dL [facility] Bilirubin (total) 0.7 mg/dL Invalid Interpretation Code 0 - 1.3 mg/dL [facility] Protein 6.6 g/dL Invalid Interpretation Code 6 - 8 g/dL [facility] TSH with Reflex Free T4on Interpretation and review of laboratory results Normal Invalid Interpretation Code [facility] Thyroid stimulating hormone (TSH) 5.00 mcIU/mL Invalid Interpretation Code 0.32 - 5.00 [facility] XR Chest AP/PA and LATon XR Chest AP/PA and LAT 1. No acute cardiopulmonary process. 2. Stable hiatal hernia. 3. 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 [employer] 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 [employer] Workstation ID: [id number] Invalid Interpretation Code [facility] ECG 12 Leadon 04-08-2017 Atrial Rate Invalid Interpretation Code [employer] Work Phone: P [place] Invalid Interpretation Code [employer] Work Phone: P-R Interval Invalid Interpretation Code [employer] Work Phone: Q-T Interval Invalid Interpretation Code [employer] Work Phone: Q-T Interval (corrected) Invalid Interpretation Code [employer] Phone: QRS Duration Invalid Interpretation Code [employer] Work Phone: QTC Calculation (Bezet) Invalid Interpretation Code [employer] Phone: R [place] Invalid Interpretation Code [employer] Phone: T [place] Invalid Interpretation Code [employer] Phone: Ventricular Rate Invalid Interpretation Code [employer] Phone: Hepatic Function Panelon Alanine aminotransferase (ALT) 9 U/L Invalid Interpretation Code 0 - 40 U/L [facility] Albumin 4.3 g/dL Invalid Interpretation Code 3.2 - 5.2 g/dL [facility] Alkaline phosphatase (ALP) 63 U/L Invalid Interpretation Code 40 - 150 U/L [facility] Aspartate aminotransferase (AST) 13 U/L Invalid Interpretation Code 0 - 45 U/L [facility] Bilirubin (conjugated) 0.2 mg/dL Invalid Interpretation Code 0 - 0.4 mg/dL [facility] Bilirubin (total) 0.4 mg/dL Invalid Interpretation Code 0 - 1.3 mg/dL [facility] Interpretation and review of laboratory results Normal Invalid Interpretation Code [facility] Protein 6.5 g/dL Invalid Interpretation Code 6 - 8 g/dL [facility] T4, Freeon 04-08-2017 Thyroxine (T4) free 1.5 ng/dL Invalid Interpretation Code 0.7 - 1.7 ng/dL [facility] TSH with Reflex Free T4on Interpretation and review of laboratory results Abnormal Invalid Interpretation Code [facility] Thyroid stimulating hormone (TSH) 8.89 mcIU/mL High 0.32 - 5.00 [facility] Vital Signs Date Time Vital Sign Value Performing Clinician Facility 10-01-2023 14:35-0400 Body height 149.86 cm [facility] 10-01-2023 14:35-0400 Body mass index (BMI) [Ratio] 32.9 kg/m2 [facility] 10-01-2023 14:35-0400 Body weight 73.93 kg [facility] 10-01-2023 14:35-0400 Diastolic blood pressure 69 mm[Hg] [facility] 10-01-2023 14:35-0400 Heart rate 94 /min [facility] 10-01-2023 14:35-0400 Systolic blood pressure 102 mm[Hg] [facility] 02-17-2023 15:00-0400 Body height 149.86 cm Boyd Bustamante Other [facility] Other 02-17-2023 15:00-0400 Body mass index (BMI) [Ratio] 31.71 kg/m2 Boyd Bustamante Other [facility] Other 02-17-2023 15:00-0400 Body weight 71.22 kg Boyd Bustamante Other [facility] Other 02-17-2023 15:00-0400 Diastolic blood pressure 70 mm[Hg] Boyd Bustamante Other [facility] Other 02-17-2023 15:00-0400 SaO2% (BldA) [Mass fraction] 97 % Boyd Bustamante Other [facility] Other 02-17-2023 15:00-0400 Systolic blood pressure 90 mm[Hg] Boyd Bustamante Other [facility] Other 07-01-2022 15:30-0500 Body height 149.86 cm Boyd Bustamante Other [facility] Other 07-01-2022 15:30-0500 Body mass index (BMI) [Ratio] 32.92 kg/m2 Boyd Bustamante Other [facility] Other 07-01-2022 15:30-0500 Body weight 73.94 kg Boyd Bustamante Other [facility] Other 07-01-2022 15:30-0500 Diastolic blood pressure 72 mm[Hg] Boyd Bustamante Other [facility] Other 07-01-2022 15:30-0500 SaO2% (BldA) [Mass fraction] 98 % Boyd Bustamante Other [facility] Other 07-01-2022 15:30-0500 Systolic blood pressure 126 mm[Hg] Boyd Butsamante Other [facility] Other 01-06-2020 10:18-0400 BMI (Body Mass Index) 27.5 kg/m2 Leonora [facility] 01-06-2020 10:18-0400 Body weight 72.67 kg Leonora [facility] 01-06-2020 10:18-0400 BP Diastolic 68 mm[Hg] Leonora [facility] 01-06-2020 10:18-0400 BP Systolic 116 mm[Hg] Leonora [facility] 01-06-2020 10:18-0400 Height 162.6 cm [facility] 01-06-2020 10:18-0400 Pulse (Heart Rate) 57 /min Leonora [facility] 09-29-2018 14:07-0400 BMI (Body Mass Index) 32.27 kg/m2 Leonora [facility] 09-29-2018 14:07-0400 BP Diastolic 73 mm[Hg] Leonora [facility] 09-29-2018 14:07-0400 BP Systolic 122 mm[Hg] Leonora [facility] 09-29-2018 14:07-0400 Height 162.6 cm Leonora [facility] 09-29-2018 14:07-0400 Pulse (Heart Rate) 63 /min Leonora Saunders [facility] 09-29-2018 14:07-0400 Weight 85.28 kg Leonora Saunders [facility] 07-02-2018 09:02-0500 BP Diastolic 56 mm[Hg] Tito Snell [facility] 07-02-2018 09:02-0500 BP Systolic 127 mm[Hg] Tito [facility] 07-02-2018 09:02-0500 Pulse (Heart Rate) 70 /min Tito [facility] 07-02-2018 09:02-0500 Pulse Oximetry 96 % Tito [facility] 07-02-2018 09:02-0500 Respiratory Rate 16 /min Tito [facility] 07-02-2018 05:27-0500 BMI (Body Mass Index) 36.22 kg/m2 [facility] 07-02-2018 05:27-0500 Body Temperature 98.6 [degF] Tito [facility] 07-02-2018 05:27-0500 Height 162.6 cm [facility] 07-02-2018 05:27-0500 Weight 95.71 kg [facility] 04-08-2017 11:19-0500 BMI (Body Mass Index) 35.53 kg/m2 Leonora Saunders [facility] Work Phone: 04-08-2017 11:19-0500 BP Diastolic 74 mm[Hg] Leonora Saunders [facility] Work Phone: 04-08-2017 11:19-0500 BP Systolic 120 mm[Hg] Leonora Saunders [facility] Work Phone: 04-08-2017 11:19-0500 Height 162.6 cm Leonora Saunders [facility] Work Phone: 04-08-2017 11:19-0500 Pulse (Heart Rate) 66 /min Leonora Saunders [facility] Work Phone: 04-08-2017 11:19-0500 Weight 93.89 kg Leonora Saunders [facility] Work Phone: Encounters Encounter Date Encounter Type Care Provider Facility Start: 12-08-2023 End: 12-08-[address] [facility] Start: 12-03-2023 End: 12-03-2023 ambulatory UZIEL OCONNOR Not Available Start: 10-01-2023 End: 10-01-2023 ambulatory [facility] Work Phone: Start: 10-01-2023 End: 10-01-2023 Patient encounter procedure [facility] Phys[facility] Work Phone: Start: 09-29-2023 Non-patient / Non-visit [facility] Physician [facility] Work Phone: Start: 09-17-2023 End: 09-17-2023 ambulatory JUS [facility] Start: 08-19-2023 ambulatory NIA ALCARAZ [facility] Start: 08-19-2023 ambulatory NIA ALCARAZ [facility] Start: 08-19-2023 ambulatory NIA ALCARAZ [facility] Start: 07-22-[address] [facility] Start: 07-22-2023 End: 07-22-[address] [facility] Start: 07-17-2023 Non-patient / Non-visit [facility] Work Phone: Start: 07-14-2023 End: 07-14-[address] [facility] Start: 06-16-2023 End: 06-16-[address] [facility] Start: 05-26-2023 End: 05-26-2023 ambulatory [facility] Start: 05-11-2023 ambulatory [facility] Start: 05-11-2023 End: 05-11-[address] [facility] Start: 04-23-2023 End: 04-23-2023 ambulatory ALEC SALEEM [facility] Start: 04-11-2023 Evaluation and manag ement of inpatient JOVANNY NUÑEZ [facility] Start: 04-10-2023 End: 04-11-2023 Evaluation and management of inpatient BECKY LOPEZ [facility] Start: 03-27-2023 End: 03-27-2023 ambulatory GRACIA MUSEEvelin [facility] Start: 02-26-2023 End: 02-26-2023 ambulatory GROVER KANG [facility] Start: 02-17-2023 Office outpatient vi sit 15 minutes Boyd Bustamante [facility] Start: 02-17-2023 End: 02-17-2023 ambulatory PARAM QUIROGA [facility] Other Start: 01-21-2023 End: 01-21-2023 ambulatory Boyd Bustamante Other [facility] Other Start: 01-21-2023 Telephone encounter Boyd Bustamante [facility] Start: 01-19-2023 End: 01-19-2023 ambulatory Boyd Bustamante Other [facility] Other Start: 01-19-2023 Telephone encounter Boyd Bustamante [facility] Start: 11-28-2022 End: 11-28-2022 ambulatory Boyd Bustamante Other [facility] Other Start: 11-28-2022 Telephone encounter Boyd Bustamante [facility] Start: 10-22-2022 End: 10-22-2022 ambulatory Boyd Bustamante Other [facility] Other Start: 10-22-2022 Telephone encounter Boyd Bustamante [facility] Start: 10-21-2022 End: 10-21-2022 ambulatory Boyd Bustamante Other [facility] Other Start: 10-21-2022 Telephone encounter Boyd Bustamante [facility] Start: 09-24-2022 End: 09-25-[address] BOYD BUSTAMANTE Facility: Start: 08-19-2022 End: 08-19-2022 ambulatory Boyd Bustamante Other [facility] Other Start: 08-19-2022 Telephone encounter [facility] Start: 08-12-2022 End: 08-13-[address] BOYD BUSTAMANTE [facility] Other Start: 08-12-2022 Telephone encounter Boyd Bustamante [facility] Start: 07-24-2022 End: 07-25-[address] BOYD BUSTAMANTE Facility:[facility] Start: 07-17-[address] BOYD BUSTAMANTE Facil ity:[facility] Start: 07-02-2022 End: 07-02-2022 ambulatory Boyd Bustamante Other [facility] Other Start: 07-02-2022 Telephone encounter Boyd Bustamante [facility] Start: 07-01-2022 End: 07-01-2022 ambulatory Boyd Bustamante Other [facility] Other Start: 07-01-2022 Patient encounter procedure Boyd Bustamante [facility] Start: 09-18-2020 Refill Leonora Saunders MD Work Phone: [facility] Comment on above: Medication Refill Start: 06-14-2020 End: 06-14-2020 Orders Only Tessy Gomez Work Phone: [facility] Start: 02-03-2020 End: 02-07-2020 Patient encounter procedure NIA ALCARAZ [facility] Start: 01-09-2020 End: 01-09-2020 Patient encounter procedure Shelia Beckett Work Phone: [facility] Start: 01-06-2020 End: 01-10-2020 Patient encounter procedure LEONORA SAUNDERS [facility] Start: 01-06-2020 End: 01-07-2020 Patient encounter procedure LEONORA SAUNDERS [facility] Start: 01-06-2020 End: 01-06-2020 Office outpatient visit 15 minutes Leonora Saunders Work Phone: [facility] Comment on above: PAF (paroxysmal atri al fibrillation) (HCC) (Primary Dx); FDC current use of 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 drug; 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, unspecified type Start: 01-06-2020 End: 01-06-2020 Subsequent hospital visit by physician Leonora Saunders Work Phone: [facility] Comment on above: 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; PAF (paroxysmal atrial fibrillation) (HCC) Start: 09-06-2019 End: 09-06-2019 Patient encounter procedure Leonora Saunders Work Phone: [facility] Start: 04-19-2019 End: 04-19-2019 Patient encounter procedure Leonora Saunders Work Phone: [facility] Start: 03-09-2019 End: 03-13-2019 Patient encounter procedure NIA ALCARAZ [facility] Start: 03-07-2019 End: 03-07-2019 Patient encounter procedure Leonora Saunders Work Phone: [facility] Start: 09-29-2018 End: 09-29-2018 Office outpatient visit 25 minutes Leonora Saunders Work Phone: [facility] Comment on above: PAF (paroxysmal atri al fibrillation) (HCC) (Primary Dx); 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, unspecified type; 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 Start: 09-28-2018 End: 09-28-2018 Patient encounter procedure Leonora Saunders Work Phone: [facility] Start: 08-11-2018 End: 08-11-2018 Patient encounter procedure Leonora Saunders Work Phone: [facility] Start: 07-05-2018 End: 07-05-2018 Patient encounter procedure Leonora Saunders Work Phone: [facility] Start: 07-02-2018 End: 02-08-2019 Evaluation and management of inpatient Tito Snell Work Phone: [facility] Start: 04-09-2018 End: 04-09-2018 Patient encounter procedure Leonora Ministerio Saunders Work Phone: [facility] Start: 04-05-2018 End: 04-05-2018 Patient encounter Leonora Ministerio Saunders Work Phone: [facility] Start: 12-30-2017 End: 12-30-2017 Patient encounter Leonora Ministerio Saunders Work Phone: [facility] Start: 08-11-2017 Patient encounter Leonora Saunders Work Phone: [facility] Start: 07-08-2017 End: 07-08-2017 Ambulatory Leonora Saunders Work Phone: [facility] Start: 06-17-2017 Ambulatory Leonora Saunders Work Phone: [facility] Start: 04-08-2017 Office outpatient vi sit 15 minutes Leonora Saunders Work Phone: [facility] Start: 04-08-2017 End: 04-08-2017 Ambulatory Leonora Saunders Work Phone: [facility] Start: 03-24-2017 Ambulatory Leonora Saunders Work Phone: [facility] Start: 03-13-2017 Patient encounter Leonora Saunders Work Phone: [facility] Start: 01-09-2017 End: 01-09-2017 Patient encounter procedure Leonora Saunders Work Phone: [facility] Start: 12-01-2016 End: 12-01-2016 Patient encounter procedure Leonora Saunders Work Phone: [facility] Procedures Date [...] Phone: Start: 07-02-2018 LIGHT GREEN TOP Tito Snell Work Phone: Start: 07-02-2018 PINK TOP Tito Ventura [facility] Work Phone: Start: 07-02-2018 RAINBOW DRAW Tito [facility] Work Phone: Removal of suture Boyd Bra un Other Removal of suture Boyd Bra un Other Plan of Treatment Date Care Activity Detail Author Start: 05-03-2031 Tetanus vaccination Tetanus: Every 1 0yrs [facility] [facility] Start: 01-23-2022 Influenza vaccination Sequenti al Influenza Vaccine (#1) [facility] Start: 01-05-2021 CLASS III : OFFICE VISIT CLASS III : OFFICE VISIT [facility] Start: 08-02-2020 Thyroid stimulating hormone measurement Class III : TSH [facility] Start: 07-08-2020 Alanine aminotransfe rase measurement CLASS III : ALT [facility] Start: 03-09-2020 CLASS III : EKG CLASS III : EKG [facility] Start: 02-10-2020 History and physical examination, annual for health maintenance Wellness Visit [facility] Start: 01-24-2020 Influenza vaccinatio n given Sequential Influenza Vaccine (#1) [facility] Start: 09-30-2019 CLASS III : OFFICE VISIT CLASS III : OFFICE VISIT [facility] Start: 09-28-2019 CLASS III : EKG CLASS III : EKG [facility] Start: 09-08-2019 CLASS III : ALT CLASS III : ALT [facility] Start: 09-08-2019 CLASS III : AST CLASS III : AST [facility] Start: 09-08-2019 CLASS III : TSH CLASS III : TSH [facility] Start: 03-30-2019 CLASS III : ALT CLASS III : ALT [facility] Start: 03-30-2019 CLASS III : AST CLASS III : AST [facility] Start: 03-30-2019 CLASS III : TSH CLASS III : TSH [facility] Start: 03-04-2019 CLASS III : EKG CLASS III : EKG [facility] Start: 01-23-2019 Influenza vaccinatio n given [facility] Start: 09-29-2018 End: 09-29-2018 Appointment [facility] Start: 09-02-2018 CLASS III : ALT CLASS III : ALT [facility] Start: 09-02-2018 CLASS III : AST CLASS III : AST [facility] Start: 09-02-2018 CLASS III : TSH CLASS III : TSH [facility] Start: 07-08-2018 CLASS III : EKG CLASS III : EKG [facility] Start: 04-08-2018 CLASS III : OFFICE VISIT CLASS III : OFFICE VISIT [facility] Work Phone: Start: 01-23-2018 Influenza vaccination [facility] Start: 01-23-2018 Influenza vaccinatio n given SEQUENTIAL INFLUENZA VACCINE (#1) [facility] Start: 01-06-2018 CLASS III : EKG CLASS III : EKG [facility] Work Phone: Start: 01-05-2018 CLASS III : ALT CLASS III : ALT [facility] Start: 01-05-2018 CLASS III : AST CLASS III : AST [facility] Start: 01-05-2018 CLASS III : TSH CLASS III : TSH [facility] Start: 10-06-2017 CLASS III : ALT CLASS III : ALT [facility] Work Phone: Start: 10-06-2017 CLASS III : AST CLASS III : AST [facility] Phone: Start: 10-06-2017 CLASS III : TSH CLASS III : TSH [facility] Phone: Start: 07-09-2017 CLASS III : ALT CLASS III : ALT [facility] Phone: Start: 07-09-2017 CLASS III : AST CLASS III : AST [facility] Phone: Start: 07-09-2017 CLASS III : TSH CLASS III : TSH [facility] Phone: Start: 04-04-2017 CLASS III : EKG CLASS III : EKG [facility] Phone: Start: 04-02-2017 CLASS III : OFFICE VISIT CLASS III : OFFICE VISIT [facility] Phone: Start: 01-23-2017 Influenza vaccination SEQUENTI AL INFLUENZA VACCINE (#1) [facility] Work Phone: Start: 01-23-2017 SEQUENTIAL INFLUENZA VACCINE (#1) SEQUENTIAL INFLUENZA VACCINE (#1) [facility] Phone: Start: 09-30-2016 CLASS III : ALT CLASS III : ALT [facility] Phone: Start: 09-30-2016 CLASS III : AST CLASS III : AST [facility] Phone: Start: 09-30-2016 CLASS III : TSH CLASS III : TSH [facility] Phone: Start: 11-15-2015 Pneumococcal vaccination PNEUM OCOCCAL VACCINE AGE 65+ (2 of 2 - PPSV23) [facility] Start: 11-15-2015 Pneumococcal Vaccine : Age 65+ (2 - PPSV23 if available, else PCV20) Pneumococcal Vaccine: Age 65+ (2 - PPSV23 if available, else PCV20) [facility] Start: 2005 Fall risk assessment [facility] Start: 2005 Pneumococcal vaccination PNEUM OCOCCAL VACCINE AGE 65+ (1 of 2 - PCV13) [facility] Work Phone: Start: 2005 PNEUMOCOCCAL VACCINE AGE 65+ (1 of 2 - PCV13) PNEUMOCOCCAL VACCINE AGE 65+ (1 of 2 - PCV13) [facility] Work Phone: Start: 2000 Zoster vacc, sc ZOSTER VACCINE [facility] Work Phone: Start: 1990 Administration of he rpes zoster vaccine ZOSTER VACCINES (1 of 2) [facility] Start: 1990 ZOSTER VACCINES (1 of 2) ZOSTE R VACCINES (1 of 2) [facility] Start: 12-18-1959 Administration of he rpes zoster vaccine Zoster Vaccines (1 of 2) [facility] Start: 1958 Hepatitis C antibody , confirmatory test Hepatitis C Screening [facility] Start: 1952 Adolescent depressio n screening assessment Depression Screening (PHQ9) [facility] Start: 1952 Depression screening using PHQ-9 (Patient Health Questionnaire 9) score Depression Screening (PHQ-2/9) [facility] Start: 12-18-1943 History and physical examination, annual for health maintenance Wellness Visit [facility] Start: 06-19-1941 COVID-19 Vaccine (#1) COVID-19 Vacci ne (#1) [facility] Start: 1940 DEXA SCAN DEXA SCAN [facility] Work Phone: Start: 1940 Fall risk assessment Falls Risk Asse ssment [facility] Start: 1940 Protein mass conc Mammogram [facility] Start: 1940 Screening mammography Mammogram [facility] Start: 1940 TETANUS EVERY 10 YR TETANUS EVERY 10 YR [facility] Work Phone: Start: 1940 End: 1940 Screening for osteoporosis DEXA SCAN [facility] Start: 1940 End: 1940 Tetanus vaccination [facility] Work Phone: End: 07-02-2018 Bacteria identified Aer cx Nom (Unsp spec) Urine Aerobic Culture Routine Once for 1 Occurrences starting 07/02/2018 until 07/02/2018 [facility] Comment on above: Once for 1 Occurrenc es starting 07/02/2018 until 07/02/2018 Bacteria identified Aer cx Nom (Unsp spec) Urine Aerobic Culture Routine 07/02/2018 8:08 AM EST [facility] X-ray of chest and abdomen XR Ab domen 2 Views With Chest 1 View STAT 07/02/2018 6:50 AM EST [facility] Payers Date Payer Category Payer Medicare [id number] 2014 Medicare [id number] 2014 Medicare [place] A[place]NA MEDICARE PLAN (PPO) [id number] 2014-Present [id number] 2014 Medicare [employer] MANAGED [place] DICARE AETNA MEDICARE PLAN (PPO) [id number] 2014-Present [phone] [facility] [id number] [place] [address] [id number] 1959 Medicare [id number] 1940 Unknown [id number] 1940 Unknown [id number] 1940 Unknown [id number] 1940 Unknown [id number] 1940 Unknown [id number] 1940 Unknown [id number] 1940 Unknown [id number] 1940 Unknown [id number] 1940 Unknown [id number] 1940 Unknown [id number] 1940 Unknown [id number] Medicare Medicare [id number] Social History Date Type Detail Facility Start: 04-08-2017 End: 01-06-2020 Tobacco smoking status NHIS Former smoker [facility] Work Phone: End: 05-25-1969 History of tobacco use Current smoker [facility] Work Phone: Start: 1940 Sex Assigned At Not on file [facility] Work Phone: Start: 07-02-2018 End: 01-06-2020 Alcohol intake Current non-drinker of alcohol (finding) [facility] Exposure to SARS-CoV-2 (event) Not sure [facility] Start: 04-08-2017 End: 01-06-2020 Tobacco use and exposure Never used [facility] End: 05-25-1969 History of tobacco use Cigarette Smoker [facility] Sex Assigned At Sex Assigned At [facility] [employer] Other Start: 1940 Sex Assigned At Female F [facility] Clinical Notes 09-18-2020 to 12-08-2023 Note Date & Type Note Facility 12-08-2023 Note [facility] Consult Note Reason for visit: Afib, s/p DCCV on amiodarone 05/11/23 12/08/23 patient underwent cardioversion on 07/22/2023 and converted to sinus rhythm but on subsequent follow-up was noted to be back in A-fib. given this the amiodarone was stopped when she saw me in the doctor's follow-up in August 2023. . last echocardiogram performed in June 15, 2023 shows EF of 40 to 45% 09/17/23 Her sister accompanied her today. She notes the patient has been very fatigued. Patient admits that her fatigued has worsened for the past 3-6 months to the point where she doesn't want to get out of bed or leave the house. She has underlying depression and thinks this is the cause. She has not addressed this with her PCP. She c/o trouble with her gait. She notes she gets pain in her lower back. She notes that she often doesn't feel like getting out of bed. Denies CP, orthopnea, PND, LE edema, syncope. 07/14/23 She feesl tired and her pulse [...] is asymptomatic of this 02/17/23 HPI: Debra Rodriguez is a 82 y.o. year old with past medical history of htn, GERD, sleep apnea, mitral valve prolapse, A-fib, c-diff, TIA, HLD, it is noted in her H&P per PCP she has been on a medication for afib but it caused her thyroid issues. She had previous seen a wellness rn and an outlying facility and recently moved here about 2 years ago and has not established with a wellness rn. She was seen by Gracia SOSA and subsequently started on anticoagulation with Eliramon. previously she had afib ablation with [facility] before 2009 had for unclear reasons was not placed on anticoagulation when he saw her. she got admitted to [facility] ED on 02/06/2023 following a fall. versus attributed to be a mechanical fall as she tripped on the corner curb. no loss of consciousness. CT of the head was negative for any hemorrhage. she had some lacerations which were sutured. She had a recent echocardiogram done which showed cardiomyopathy with a EF of 35 to 40%. [id number] at least 6 for age, gender, hypertension, TIA -not anticoagulated ECG 02/17/23 Afib with RVR 02/06/2023 shows atrial fibrillation 12/03/2022 A-fib 100bpm 06/11/2020 sinus rhythm Echocardiogram 02/02/2023 PMH: Past Medical History: Diagnosis Date Acute on chronic systolic heart failure (CMS/HCC) 02/17/2023 AV block 04/10/2023 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 04/08/2017 Longstanding persistent atrial fibrillation (CMS/HCC) 04/08/2017 PSH: No past surgical history on file. SH: Social Determinants of Health Tobacco Use: Medium Risk (09/22/2023) Patient History Smoking Tobacco Use: Former Smokeless Tobacco Use: Never Passive Exposure: Not on file Alcohol Use: Not on file Financial Resource Strain: Low Risk (04/10/2023) Overall Financial Resource Strain (CARDIA) Difficulty of Paying Living Expenses: Not hard at all Food Insecurity: No Food Insecurity (04/10/2023) Hunger Vital Sign Worried About Running Out of Food in the Last Year: Never true Ran Out of Food in the Last Year: Not on file Transportation Needs: No Transportation Needs (04/10/2023) Transportation Lack of Transportation (Medical): No Lack of Transportation (Non-Medical): Not on file Physical Activity: Not on file Stress: Not on file Social Connections: Not on file Intimate Partner Violence: Not At Risk (04/10/2023) [place] Safety & Environment Fear of Current or Ex-Partner: No Emotionally Abused: Not on file Physically Abused: Not on file Sexually Abused: Not on file Physically or Sexually Abused: Not on file Depression: Not on file Housing Stability: Low Risk (04/10/2023) Housing Stability Vital Sign Unable to Pay for Housing in the Last Year: Not on file Number of Places Lived in the Last Year: Not on file Unstable Housing in the Last Year: No Utilities: Not on file Allergies: Allergies Allergen Reactions Adhesive Paper Tape is ok Sulfa (Sulfonamide Antibiotics) Hives Weight: 72.6kg Visit Vitals BP 124/90 Pulse (!) 113 Wt 72.6 kg (160 lb) SpO2 96% BMI 27.46 kg/m??? OB Status Postmenopausal Smoking Status Former BSA 1.81 m??? Meds: Current Outpatient Medications on File Prior to Visit Medication Sig Dispense Refill amLODIPine (Norvasc) 10 mg tablet Take 10 mg by mouth in the morning. apixaban (Eliquis) 5 mg tablet Take 1 tablet (5 mg) by mouth in the morning and at bedtime. 180 tablet 3 atorvastatin (Lipitor) 20 mg ta (more content not included)... [facility] 09-17-2023 Note [facility] Consult Note Reason for visit: Afib, s/p DCCV on amiodarone 05/11/23 09/17/23 Her sister accompanied her today. She notes the patient has been very fatigued. Patient admits that her fatigued has worsened for the past 3-6 months to the point where she doesn't want to get out of bed or leave the house. She has underlying depression and thinks this is the cause. She has not addressed this with her PCP. She c/o trouble with her gait. She notes she gets pain in her lower back. She notes that she often doesn't feel like getting out of bed. Denies CP, orthopnea, PND, LE edema, syncope. 07/14/23 She feesl tired and her pulse [...] is asymptomatic of this 02/17/23 HPI: Debra Rodriguez is a 82 y.o. year old with past medical history of htn, GERD, sleep apnea, mitral valve prolapse, A-fib, c-diff, TIA, HLD, it is noted in her H&P per PCP she has been on a medication for afib but it caused her thyroid issues. She had previous seen a wellness rn and an outlying facility and recently moved here about 2 years ago and has not established with a wellness rn. She was seen by Gracia SOSA and subsequently started on anticoagulation with Tiffanie. previously she had afib ablation with [facility] before 2009 had for unclear reasons was not placed on anticoagulation when he saw her. she got admitted to [facility] ED on 02/06/2023 following a fall. versus attributed to be a mechanical fall as she tripped on the corner curb. no loss of consciousness. CT of the head was negative for any hemorrhage. she had some lacerations which were sutured. She had a recent echocardiogram done which showed cardiomyopathy with a EF of 35 to 40%. [id number] at least 6 for age, gender, hypertension, TIA -not anticoagulated ECG 02/17/23 Afib with RVR 02/06/2023 shows atrial fibrillation 12/03/2022 A-fib 100bpm 06/11/2020 sinus rhythm Echocardiogram 02/02/2023 PMH: Past Medical History: Diagnosis Date Acute on chronic systolic heart failure (CMS/HCC) 02/17/2023 AV block 04/10/2023 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 04/08/2017 Longstanding persistent atrial fibrillation (CMS/HCC) 04/08/2017 PSH: No past surgical history on file. SH: Social Determinants of Health Tobacco Use: Medium Risk (09/22/2023) Patient History Smoking Tobacco Use: Former Smokeless Tobacco Use: Never Passive Exposure: Not on file Alcohol Use: Not on file Financial Resource Strain: Low Risk (04/10/2023) Overall Financial Resource Strain (CARDIA) Difficulty of Paying Living Expenses: Not hard at all Food Insecurity: No Food Insecurity (04/10/2023) Hunger Vital Sign Worried About Running Out of Food in the Last Year: Never true Ran Out of Food in the Last Year: Not on file Transportation Needs: No Transportation Needs (04/10/2023) Transportation Lack of Transportation (Medical): No Lack of Transportation (Non-Medical): Not on file Physical Activity: Not on file Stress: Not on file Social Connections: Not on file Intimate Partner Violence: Not At Risk (04/10/2023) [place] Fear of Current or Ex-Partner: No Emotionally Abused: Not on file Physically Abused: Not on file Sexually Abused: Not on file Physically or Sexually Abused: Not on file Depression: Not on file Housing Stability: Low Risk (04/10/2023) Housing Stability Vital Sign Unable to Pay for Housing in the Last Year: Not on file Number of Places Lived in the Last Year: Not on file Unstable Housing in the Last Year: No Utilities: Not on file Allergies: Allergies Allergen Reactions Adhesive Paper Tape is ok Sulfa (Sulfonamide Antibiotics) Hives Weight: 72.6kg Visit Vitals BP 106/70 (BP Location: Right arm, Patient Position: Sitting) Pulse 107 Ht 1.626 m (5' 4 ) Wt 72.6 kg (160 lb) SpO2 97% BMI 27.46 kg/m??? OB Status Postmenopausal Smoking Status Former BSA 1.81 m??? Meds: Current Outpatient Medications on File [...] nasal spray Administer 1 spray into each n (more content not included)... [facility] 09-17-2023 Note Patient here for fol low up cardioversion performed on 07/22/[address] Quiroga. She denies chest pain, SOB, palpitations, lightheadedness/syncope, and bleeding on Eliquis. Review of Systems Constitutional: Positive for malaise/fatigue. Respiratory: Positive for cough. Musculoskeletal: Positive for arthritis, back pain, joint pain and myalgias. Neurological: Positive for headaches and numbness. All other systems reviewed and are negative. [facility] 09-04-2023 Note This report has been cancelled. [facility] 07-22-2023 Note DIRECT CARDIOVERSION PROCEDURE NOTE Date: 07/22/2023. Type of procedure: DC Cardioversion. Performed by: Param Quiroga MD Informed consent: Signed by patient. Preparation and technique: Patient was brought into the procedure room. After an informed consent was obtained following a discussion with the patient where I explained the risk and benefit of the procedure that is not limited to skin spicer, fluid in the lungs, heart attack, stroke, or even , though that is very rare. Patches were placed in anteroposterior direction and once patient was made comfortable with Versed 2mg and Fentanyl 25mcg. Following sedation, the patient underwent synchronized cardioversion using 360J which converted to sinus rhythm. Post procedure, the patient was stable. No complications noted. Plan: Continue anticoagulation. Param Quiroga MD Cardiac Electrophysiology [facility] 07-22-2023 Note Patient: Debra engel Procedure Information Date/Time: 07/22/23829 Procedure: Cardioversion Location: [facility] / [facility] (Cath) Providers: Param Quiroga MD Clinical information reviewed: Tobacco Allergies Meds Med Hx Surg Hx OB Status Fam Hx Soc Hx Physical Exam Airway Mallampati: II TM distance: >3 FB Neck ROM: full Cardiovascular Dental Pulmonary Abdominal Anesthesia Plan ASA 2 CSE Anesthetic plan and risks discussed with patient. Use of blood products discussed with patient who. Additional Equipment Requests [facility] 07-22-2023 Note This report has been cancelled. [facility] 07-14-2023 Note [facility] Consult Note Reason for visit: Afib, [...] is asymptomatic of this 02/17/23 HPI: Debra Rodriguez is a 82 y.o. year old with past medical history of htn, GERD, sleep apnea, mitral valve prolapse, A-fib, c-diff, TIA, HLD, it is noted in her H&P per PCP she has been on a medication for afib but it caused her thyroid issues. She had previous seen a wellness rn and an outlying facility and recently moved here about 2 years ago and has not established with a wellness rn. She was seen by Gracia SOSA and subsequently started on anticoagulation with Eliqukelly. previously she had afib ablation with [facility] before 2009 had for unclear reasons was not placed on anticoagulation when he saw her. she got admitted to [facility] ED on 02/06/2023 following a fall. versus attributed to be a mechanical fall as she tripped on the corner curb. no loss of consciousness. CT of the head was negative for any hemorrhage. she had some lacerations which were sutured. She had a recent echocardiogram done which showed cardiomyopathy with a EF of 35 to 40%. [id number] at least 6 for age, gender, hypertension, [...] 100 mcg by mouth in the morning. symnshq-hskz-xgchv-oreg-capryl 100 mg-150 mg- 50 mg-150 mg capsule Take 1 capsule by mouth in the morning. venlafaxine XR (Effexor-XR (more content not included)... [facility] 05-26-2023 Note Patient here for fol low up cardioversion. Review of Systems Constitutional: Positive for malaise/fatigue. Hematologic/Lymphatic: Bruises/bleeds easily. All other systems reviewed and are negative. [facility] 05-26-2023 Note [facility] Consult Note Reason [...] is asymptomatic of this 02/17/23 HPI: Debra Rodriguez is a 82 y.o. year old with past medical history of htn, GERD, sleep apnea, mitral valve prolapse, A-fib, c-diff, TIA, HLD, it is noted in her H&P per PCP she has been on a medication for afib but it caused her thyroid issues. She had previous seen a wellness rn and an outlying facility and recently moved here about 2 years ago and has not established with a wellness rn. She was seen by Gracia SOSA and subsequently started on anticoagulation with Eliquis. previously she had afib ablation with [facility] before 2009 had for unclear reasons was not placed on anticoagulation when he saw her. she got admitted to [facility] ED on 02/06/2023 following a fall. versus attributed to be a mechanical fall as she tripped on the corner curb. no loss of consciousness. CT of the head was negative for any hemorrhage. she had some lacerations which were sutured. She had a recent echocardiogram done which showed cardiomyopathy with a EF of 35 to 40%. [id number] at least 6 for age, gender, hypertension, [...] Take 3 capsules (more content not included)... [facility] 05-11-2023 Note Patient: Debra engel Procedure Information Date/Time: 05/11/23 1200 Procedure: Cardioversion Location: [facility] / [facility] (Cath) Providers: Param Quiroga MD Clinical information reviewed: Allergies Meds OB Status Physical Exam Airway Mallampati: II TM distance: >3 FB Neck ROM: full Cardiovascular Dental Pulmonary Abdominal Anesthesia Plan ASA 2 CSE Anesthetic plan and risks discussed with patient. Use of blood products discussed with patient who. Additional Equipment Requests [facility] 04-23-2023 Note Patient seen for wou nd [...] weeks. 5. No driving for 1 month. [facility] 04-23-2023 Note Patient here for wou nd check s/p device insertion with Dr. Nuñez on 04/10/2023. [facility] 04-10-2023 Note Indications for perm anent pacemaker [...] for venography of the upper extremity Jovanny Nuñez M.D. [facility] c architect and Pediatrics Director: Cardiac Electrophysiology Program [facility] 04-10-2023 Note Patient: Debra engel Procedure Information Date/Time: 04/10/232319 Procedure: Implant PPM Location: [facility] EP / [facility] (Cath) Providers: Jovanny Nuñez MD Clinical information reviewed: Allergies Physical Exam [...] discussed with patient who. Additional Equipment Requests [facility] 04-10-2023 Note Patient: Debra engel Procedure Information Date/Time: 04/10/232319 Procedure: Implant PPM Location: [facility] EP / [facility] (Cath) Providers: Jovanny Nuñez MD Clinical information reviewed: Allergies Physical Exam Airway Mallampati: I Cardiovascular - normal exam Dental - normal exam Pulmonary - normal exam Abdominal - normal exam Anesthesia Plan Additional Equipment Requests [facility] 03-27-2023 Note [facility] Consult Note Reason for visit: Afib 03/27/23: Patient here for follow up Has had some OREILLY and notices HR can become rapid at times with exertion Discussed amio and RODY/CV to see if SR can be restored Discussed if unable to restore SR maybe need to consider ablation vs PPM/Avn ablation given new onset HFrEF 02/17/23 HPI: Debra Rodriguez is a 82 y.o. year old with past medical history of htn, GERD, sleep apnea, mitral valve prolapse, A-fib, c-diff, TIA, HLD, it is noted in her H&P per PCP she has been on a medication for afib but it caused her thyroid issues. She had previous seen a wellness rn and an outlying facility and recently moved here about 2 years ago and has not established with a wellness rn. She was seen by Gracia SOSA and subsequently started on anticoagulation with Eliquis. previously she had afib ablation with [facility] before 2009 had for unclear reasons was not placed on anticoagulation when he saw her. she got admitted to [facility] ED on 02/06/2023 following a fall. versus attributed to be a mechanical fall as she tripped on the corner curb. no loss of consciousness. CT of the head was negative for any hemorrhage. she had some lacerations which were sutured. She had a recent echocardiogram done which showed cardiomyopathy with a EF of 35 to 40%. [id number] at least 6 for age, gender, hypertension, [...] 100 mcg by mouth in the morning. ncuwtvf-nntv-umefs-oreg-capryl 100 mg-150 mg- 50 mg-150 mg capsule Take 1 capsule by mouth in the morning. venlafaxine XR (Effexor-XR) 75 mg 24 hr capsule Take 75 mg by mouth in the morning, at noon, and at bedtime. vit C,Z-Cb-qujwd-lutein-zeaxan (PreserVision AREDS-2) 250-90-40-1 mg capsule Take 2 [...] Exam: Constitutional Ge (more content not included)... [facility] 02-17-2023 Evaluation note Encounter Date Diagnosis Assessment Notes Jan, Visit for suture removal (ICD-10 - Z48.02) 3 sutures removed from R 3rd finger - tolerated well. Jan, Atrial fibrillation (ICD-10 - I48.91) BP low today. Pt states she just left Dr. Garay's office and she is scheduled for a heart cath. [employer] Other 09-26-2023 NoteUT Electrophysiology Consult Note Reason for visit: Afib HPI: Debra Rodriguez is a 82 y.o. year old with past medical history of htn, GERD, sleep apnea, mitral valve prolapse, A-fib, c-diff, TIA, HLD, it is noted in her H&P per PCP she has been on a medication for afib but it caused her thyroid issues. She had previous seen a wellness rn and an outlying facility and recently moved here about 2 years ago and has not established with a wellness rn. She was seen by Gracia SOSA and subsequently started on anticoagulation with Eliquis. previously she had afib ablation with [facility] before 2009 had for unclear reasons was not placed on anticoagulation when he saw her. she got admitted to [facility] ED on 02/06/2023 following a fall. versus attributed to be a mechanical fall as she tripped on the corner curb. no loss of consciousness. CT of the head was negative for any hemorrhage. she had some lacerations which were sutured. She had a recent echocardiogram done which showed cardiomyopathy with a EF of 35 to 40%. [id number] at least 6 for age, gender, hypertension, [...] normal upstroke, n (more content not included)... [facility]02-07-2023 Evaluation note* Encounter Date Diagnosis Assessment Notes [...] for Sleep study retitration and consultation with [facility] sleep lab. Jun, Pain in right foot (ICD-10 - M79.671) Jun, Pain in left foot (ICD-10 - M79.672) Jun, Allergic rhinitis, unspecified seasonality, unspecified trigger (ICD-10 - J30.9) [facility] [employer] Other 04-27-2021 Telephone encounter Note* Telephone Encounter - Leonora Saunders - 09/18/2020 9:16 AM EDT Amiodarone was discontinued, last notes states the patient moved and has established care elsewhere. [id number] Miscellaneous Notes* Telephone Encounter - Leonora Saunders - 09/18/2020 9:16 AM EDT Amiodarone was discontinued, last notes states the patient moved and has established care elsewhere. 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 Diagnosis 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 Diagnosis 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 Diagnosis PAF (paroxysmal atrial fibri llation) ([facility]) - Primary Atrial fibrillation FDC current use of ant iarrhythmic drug Paroxysmal atrial fibrillati on ([facility]) 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, unspecified ty pe Obesity, unspecified classif ication, unspecified obesity type, unspecified whether serious comorbidity present Diagnosis Fecal impaction (HCC) Other impaction of intestine Diagnosis PAF (paroxysmal atrial fibrillation) ([facility])- Primary Atrial fibrillation 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, 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 Sabino Saunders. in this encounter* Moon Li LPN - 12/01/2016 12:12 PM EDT Patient is past due for labs. Mailed to home address, reminder letter with the following post it note message: Ms. Rodriguez, Our records indicate that you are past [...] - 01/09/2017 10:52 AM EDT Rec'd from [facility] pt's Class III labwork dated 01/06/17 [...] - 09/29/2018 2:38 PM EDT [facility] [address] [facility] [address] [facility] [id number] Office Visit Debra Rodriguez (77 y.o. ( 1940) female) Date of service - 09/29/18 Primary healthcare providers: Nia Alcaraz MD (Family); Nia Alcaraz (Referring)? ASSESSMENT: 1. PAF (paroxysmal atrial fibrillation) (HCC) Stable. No clinical recurrence. Continue medical management. Follow-up EP clinic 1 year. 2. 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 Stable. Labs [...] I had the pleasure of seeing Debra Rodriguez in the arrhythmia clinic. Past history includes [...] rhythm, within normal limits Document generated by [employer] voice recognition dictation system to expedite reporting. Please excuse any syntax, spelling or grammatical errors caused by [employer] dictation. Medication list reviewed on 09/29/18 2:38 [...] on 09/29/18 2:38 PM Leonora Saunders MD, [facility]. Cardiac Electrophysiology, Cardiovascular Disease. [facility]. documented in [...] reminder letter mailed with a list of [facility] lab facilities with a note instructing pt to call the facility prior to going to make sure it is open. documented in this encounter* Shelia Beckett PharmD - 01/13/2020 12:38 PM EDT Several attempts to call patient and Candice Barnett RN, was able to connect with her today and instructed patient of [facility]'s recs. See telephone encounter dated 01/12/20. [...] PharmD - 01/09/2020 8:45 AM EDT Debra Rodriguez obtained amiodarone monitoring labs per protocol. Results [...] MD - 01/06/2020 10:40 AM EDT [facility] [address] [facility] [address] [facility] [phone] Cardiac Electrophysiology Clinic Office Visit Debra Rodriguez (79 y.o. ( 1940) female) Date of service - 01/06/20 Primary healthcare providers: Nia Alcaraz MD (Family); No ref. provider found (Referring)? ASSESSMENT: 1. PAF (paroxysmal atrial fibrillation) (HCC) Stable. No clinical recurrence. Continue medical management. 2. 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 Stable. Continue follow-up in class III clinic. 4. 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, unspecified type Stable. Continue medical management. RECOMMENDATIONS: Patient is stable from a cardiac standpoint. Chest x-ray done today looks unremarkable. TSH and liver function studies will be drawn today, results are pending. Patient believes she is up-to-date on refills. Patient states that she has moved to [facility] and plans on transitioning all of her [...] I had the pleasure of seeing Debra Rodriguez in the arrhythmia clinic. Past history includes paroxysmal atrial fibrillation well-controlled on amiodarone, preserved EF, hypertension, obesity. Patient has done extremely well since last visit. No palpitations or tachycardia. Compliant with medication. No symptoms of angina or heart failure. No significant effort intolerance. I independently reviewed the following studies: ECG -normal sinus rhythm. No acute changes. Document generated by [employer] voice recognition dictation system to expedite reporting. Please excuse any syntax, spelling or grammatical errors caused by [employer] dictation. Medication list reviewed on 01/06/20 10:40 [...] on 01/06/20 10:40 AM Leonora Saunders MD, [facility]. Cardiac Electrophysiology, Cardiovascular Disease. [facility]. documented in [...] be sent through Care Everywhere. * Constipation (Gambian) in this encounter Advance Directives No Advanced Directives Records FoundDocuments on File Type Date Recorded Patient Safety Companion Expl anation Advance Directives and Livin g Will 07/02/2018 5:55 AM Documents on File Type Date Recorded Patient Safety Companion Expl anation Advance Directives and Livin g Will 01/06/2020 9:39 AM Advance Directive Response Recorded Date/ Time Advance Directives No October 01, 2023 2:29pm Reason for Referral Status Reason Specialty Diagnoses / Procedures Referred By Contact Referred To Contact Pending Review Cardiology Diagnoses PAF (paroxysmal atrial fibrillation) ([facility]) Procedures ECG 12 Lead Leonora Saunders MD [address] [place] [address] Reason 08/15/22 [facility] Card iology at [facility]. No records here from [place] [facility]. Diagnosis 1 Atrial fibrillation (I48.91) Referral Organization [facility] ernie Referring Provider First Name Boyd Referring Provider Last Name Dianna Referring Provider Specialty Family [facility] Referred Organization Unknown Facility Referred Provider Carl Kuhn Referred Provider Specialty Cardiology Referral Priority Routine Referral Appointment Date 2022-08-15 General Notes Cinthia Jacobson 10:24:39 AM >received today, no notes to send with referral. I called patient and left detailed message to see if she can provide me the doctors name she saw in [place]. will follow back up Cinthia Jacobson 07/03/2022 08:27:02 AM >referral faxed, but still waiting on a call back from patient about old records Cinthia Jacobson 07/10/2022 09:19:20 AM >faxed first attempt letter Clinical Notes F: [id number] GERARD Foster Reason *FU 07/30 CALL [place] office - callouses and pain Diagnosis 1 Pain in right foot ( M79.671) Referral Organization [facility] Jason klein Referring Provider First Name Boyd Referring Provider Last Name Dianna Referring Provider Specialty Family [facility] Referred Organization [facility] Referred Provider Uziel Oconnor Referred Address ,[place],[address] Referred Provider Specialty Podiatry - S urgical Chiropody Referral Priority Routine General Notes Cinthia Jacobson 10:46:32 AM >received today, attachments made, notes locked, and referral faxed Cinthia Jacobson 07/09/2022 06:48:57 AM >faxed first attempt letter Cinthia Jacobson 07/16/2022 08:32:45 AM >faxed second attempt letter Cinthia Jacobson 07/23/2022 09:30:19 AM >faxed third attempt letter. will call next Clinical Notes [id number] Summary Purpose Family History No Family History Records Found Relationship Condition Age at Onset Recorded Date/T jessica father Unknown Not Specified Unknown Chief Complaint and Reason for Visit Chief Complaint discuss PT/med revie w Reason for Visit Lumbar back pain Additional Source Comments Reason for Visit (unrecogniz [...] Associated Order(s): ED CONSULT TO MEDICAL - [facility]ATHER [facility]ACER COMPLEX DISCHARGE Date: 07/02/2018 Time: 8:21 AM Patient Name: Debra Rodriguez Date of : 1940 Sex: Female Pt reports her sister is physically unable to transport her and that she does not have any other family nearby to assist. Pt reports she has some jordan with her but does not think she has enough to cover cost of cab, left credit cards at home. Pass provided and pt taken to [facility]. Discharge Readiness Expected Discharge Date: 07/02/18 [facility] Disposition D/C Disposition: Home Agency/Destination: Home Transportation Type: Cab(pass) Options Reviewed: List provided, Possible expense, Explained services/benefits Reason for Choice: Patient/Family prefernce in this encounter Nik Skelton RN - 07/02/2018 7:07 AM Nik Ruiz RN - 07/02/2018 6:46 AM Nik Ruiz RN - 07/02/2018 6:35 AM Nik Riuz RN - 07/02/2018 6:20 AM EST ED [...] section and content) DATE CREATED AUTHOR 10/16/2018 [facility] DATE CREATED AUTHOR AUTHOR'S ORGANIZ ATION 03/25/2019 [facility] DATE CREATED AUTHOR AUTHOR'S ORGANIZ ATION 02/07/2020 [facility] DATE CREATED AUTHOR AUTHOR'S ORGANIZ ATION 02/07/2020 [facility] DATE CREATED AUTHOR AUTHOR'S ORGANIZ ATION 10/01/2022 [facility] DATE CREATED AUTHOR AUTHOR'S ORGANIZ ATION 08/20/2023 [facility] DATE CREATED AUTHOR AUTHOR'S ORGANIZ ATION 12/10/2023 [facility] EPIC DATE CREATED AUTHOR AUTHOR'S ORGANIZ ATION 01/07/[address] [facility] Care Teams (unrecognized sec tion and content) Deliverer Food Relationship Specialty Start Date End Date Nia Alcaraz MD PCP - General 06/06/11 Leonora Saunders MD [facility] 02/20/15 Team Status: Active Member Role Status Dates Boyd Bustamante MD Primary Care Provider Active Team Status: Active Member Role Status Dates Boyd Bustamante MD Primary Care Provide r, Attending Provider Active Start: July 17, 2023 Team Status: Active Member Role Status Dates Boyd Bustamante MD Primary Care Provider Active Start: September 29, 2023 JEMIMA Guzman Attending Provider Active Start: September 29, 2023 Team Status: Inactive Member Role Status Dates Boyd Bustamante MD Primary Care Provide r, Attending Provider Active Start: October 01, 2023 End: October 01, 2023 Goals (unrecognized section and content) Goals may be documented in a n alternate section FOR RECORDS PERTAINING TO PATIENTS WHO ARE [...] BE BASED ON THE PRIMARY CLINICAL RECORDS. [facility] [employer] provides no warranty or guarantee of the accuracy or completeness of information in this document.
--- NOTE | 2024-01-14 15:22 | XR_ITS ---
The [address] [address] Patient Name: MAUREEN GARCÍA MRN: [id number] date: 1940 Sex: F Assigned Patient Location: [facility] Current Patient Location: [facility] Accession/Order Number: [id number] Exam Date: 01/14/2024 15:50 Report Date: 01/14/2024 16:50 At the request of: ROSALBA QUIROGA Procedure: XR chest 2V EXAM: XR chest 2V HISTORY: Congestive Heart Failure COMPARISON: 04/10/2023 TECHNIQUE: Upright PA and lateral chest x-ray FINDINGS: The heart is not enlarged and the vasculature is not distended. No acute infiltrate, effusion or pneumothorax is identified. 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 Again noted is a hiatal hernia. XR/XR chest 2V IMPRESSION: No acute infiltrate or evidence of cardiac decompensation. The overall appearance of the chest is essentially unchanged. Electronically authenticated by: ROCIO VELASCO Date: 01/14/2024 16:50
== END 2024-01-14 15:06 | disposition home or self-care (01) ==
LOC: RAD 15:08
PROVIDERS: PCP Family Medicine; Visit Provider Internal Medicine Cardiovascular Disease
DX: I50.82 Biventricular heart failure (principal)
CPT/HCPCS: 71046

== ENCOUNTER 2024-02-24 15:19 | Outpatient (OUT) | payer MEDICARE, SELFPAY ==
--- OUTSIDE RECORDS SUMMARY | 2024-02-24 15:38 | XMS_ITS | CCD ---
Author Organization [facility] Care Team Providers Care Chief Scientific Officer Name Role Phone Nia Alcaraz Unavailable [phone] Leonora Saunders Unavailable Unavailabl e Unavailable Primary Care Provider Nia Brito Dorota Primary Care Provider Leonora Saunders Unavailable [phone] Nia Alcaraz Primary Care Provider Leonora Saunders Unavailable Leonora Saunders Unavailable Lissa [facility] Primary Care Provider LISSA [facility] Unava ilable LEONORA SAUNDERS Attending Unavailabl e LEONORA SAUNDERS Referring Unavailabl e LISSA [facility] Care Unava ilable LEONORA SAUNDERS Admitting Unavailabl e LEONORA SAUNDERS Referring [facility] Unava ilable LISSA [facility] Care Unava ilable LEONORA SAUNDERS Attending Unavailismael e LISSA [facility] Unava ilable LEONORA SAUNDERS Admitting Unavailabl e LEONORA SAUNDERS [facility] Leonora Saunders Unavailable Griselda Alcaraz MD, [facility] Provi mervin Leonora Saunders MD Unavailable Boyd Bustamante Unavailable DIANNA, DR BOYD [...] NIA Attending Unavailable GIANNETTO, NIA Attending Unavailable HAY, BECKY Referring Unavailable SAVANNAH, JOVANNY Admitting Unavailable SAVANNAH, JOVANNY Attending Unavailable BARAZI, GRACIA Attending Unavailable KIMBER, PARAM Referring Unavailable KIMBER, PARAM Referring Unavailable BURKET, GROVER Admitting Unavailable BURKET, GROVER Attending Unavailable ABDIRIZAK, JUS Attending Unavailable KIMBER, PARAM Admitting Unavailable KIMBER, PARAM Attending Unavailable KIMBER, PARAM Admitting Unavailable KIMBER, PARAM Attending Unavailable KIMBER, PARAM Referring Unavailable BARAZI, GRACIA Referring Unavailable KIMBER, PARAM Attending Unavailable KIMBER, PARAM Attending Unavailable ABDIRIZAK, JUS Attending Unavailable WITHEREALEC LUNDBERG Attending Unavailable KIMBER, PARAM Referring Unavailable KIMBER, PARAM Referring Unavailable BURKET, GROVER Referring Unavailable BARAZI, GRACIA Attending Unavailable KIMBER, PARAM Attending Unavailable KIMBER, PARAM Admitting Unavailable KIMBER, PARAM Attending Unavailable KIMBER, PARAM Referring Unavailable SAVANNAH, JOVANNY Referring Unavailable UZIEL OCONNOR Attending Unavailable MOISES JAMES Attending Unavailable UZIEL OCONNOR Attending Unavailable Allergies Allergy Classification Reported Allergen(s) Allergy Type Date of Onset Reaction(s) Facility (20 sources) Adhesive Tape; Translations: [Unknown] Propensity to adverse reactions to drug 03-14-20 15 Unknown, Hives [facility] Work Phone: (20 sources) Sulfonamides (Antibiotic); Translations: [SULFA (SULFONAMIDE ANTIBIOTICS)] Propensity to adverse reactions to drug 03-14-20 15 [facility] Work Phone: (3 sources) amoxicillin Drug Allergy 03-14-20 [facility] Work Phone: (4 sources) Sulfonamides (Antibiotic) Propensity to adverse reactions to drug 03-14-20 15 [facility] (10 sources) Sulfonamides (Antibiotic) Propensity to adverse reactions Unknown [facility] TRADE TO REBATE Other (1 source) Sulfonamides (Antibiotic) Drug allergy (disorder) 05-10-[address] [facility] Repository (3 sources) Adhesive Tape Drug allergy Unknown [employer] Other (2 sources) Allergies Reconciled Propensity to adverse reactions Unknown [employer] Other (1 source) ALLERGIES NOT ON FILE; Translations: [ALLERGIES NOT ON FILE] Propensity to adverse reactions (disorder) [facility] COP Repository (1 source) Adhesive Tape Allergy to substance 10-01-19 24 [facility] Medications Current Medications Medication Drug Class(es) Dates [...] mouth once daily take 2 tablets by [facility] once daily azaTHIOprine 50 MG TAKE 2 [...] 137 MCG INTRANASAL Every 12 hours 30 90 July 09, 2023 1:00am administer into each [...] twice daily take 2 capsules by m out every twelve hours Balsalazide Disodium 750 MG [...] Start: 11-06-2019 take 1 capsule by mo [facility] once daily Synthroid 100 mcg tablet Take [...] Serotonin and Norepinephrine Reuptake Inhibitor Start: 09-30-19 take 3 capsules by mouth once daily Venlafaxine HCl ER 75 mg TAKE 3 CAPSULES DAILY Active take 1 capsule by mo [facility] every twenty-four hours Venlafaxine HCl ER 75 [...] 2023 3:03pm take 3 tablets by mo [facility] every twenty-four hours buPROPion HCl ER (XL) 150 MG 3 tablet Orally Once a day for 90 days Active take 1 tablet by mouth three randall es daily buPROPion HCl ER (XL) 150 MG 1 tablet Orally three times daily for 90 days Active take [facility] every twenty-four hours buPROPion HCl ER (XL) [...] Onset: 04-10-2023 Chronic Congestive heart failure; nonhypertensive (4 sources) Biventricular heart failure; Translations: [Acute on chronic systolic [...] Onset: 04-08-2017 04-08-2017 Chronic Heart valve disorders (4 sources) Nonrheumatic mitral (valve) insufficiency; Translations: [Nonrheumatic mitral (valve) prolapse] Onset: 12-13-2022 [...] Long-term current use of drug therapy; Translations: [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 [facility] 36on 01-27-2024 36 I don't see any [employer] e transmissions for her. Does she have a home monitor set up? If not, send her the info to call them to set up if she wants home monitoring. Or she could have her device interrogated in the office sooner than the . [facility] 36 Patient called to make you aware that the past few days she's been having left-sided heart pounding . Patient denies chest pain and SOB. Heart pounding is happening at night when she is lying down. Asked her to come into the office for ECG and she said I just had one . Any way to check her device on Evoke? Normal [facility] Telephoneon 01-27-2024 Telephone [id number] Emy Rodriguez 1940 F Date Provider Department Center 01/27/2024 MABLE LOUIS CH[facility] No family history on file [facility] Office Visiton 01-20-2024 Follow-up visit [id number] Emy Rodriguez 1940 F Date Provider Department Center 01/20/2024 Nilda-JUS REVELES CH[facility] No family history on file Level of Service:08238 [place] OFFICE/OUTPATIENT ESTABLISHED MOD MDM 30 MIN [facility] HPon 01-13-[address] [facility] Electrophysiology Consult Note Reason for visit: Afib, [...] thyroid issues. She had previous seen a order processor and an outlying facility and recently moved here about 2 years ago and has not established with a order processor. She was seen by Gracia SOSA and subsequently started on anticoagulation with Eliquis. previously she had afib ablation with [facility] before 2009 had for unclear reasons was not placed on anticoagulation when he saw her. she got admitted to [facility] on 02/06/2023 following a fall. versus attributed to be a mechanical fall as she tripped on the corner curb. no loss of consciousness. CT of the head was negative for any hemorrhage. she had some lacerations which were sutured. She had a recent echocardiogram done which showed cardiomyopathy with a EF of 35 to 40%. [id number] at least 6 for age, gender, hypertension, [...] Intimate Partner Violence: Not At Risk (04/10/2023) [place] Safety & Environment Fear of Current or [...] 20 mg ta (more content not included)... [facility] NURSNOTEon 01-13-2024 NURSNOTE RN educated pt on d/ c instructions. RN encouraged pt to voice any questions or concerns. Pt verbalizes no questions or concerns at this time. Pt was wheeled off of unit with all of belongings. [facility] NURSNOTE CHG wipes and betadine nasal swabs completed. [facility] Orders Onlyon 01-13-2024 Orders Only [id number] Emy Rodriguez 1940 F Date Provider Department Center 01/13/2024 LANETTE NIETONA [facility] [place] [facility] No family history on file [facility] Orders Onlyon 01-05-2024 Orders Only [id number] JenniferEmy durand 1940 Date Provider Department Center 01/05/2024 Montrell-FLAQUITA PHILLIP [facility] No family history on file [facility] Abstracton 12-16-2023 Abstract [id number] Emy Rodriguez 1940 Date Provider Department Center 12/16/2023 PARAM STODDARD [facility] C[facility] Rahman Count No family history on file [facility] Office Visiton 12-08-2023 Follow-up visit [id number] Emy Rodriguez 1940 Date Provider Department [place] 12/08/2023 PARAM STODDARD [facility] No family history on file Level of Service:7[address]95 [place] OFFICE/OUTPATIENT ESTABLISHED HIGH MDM 40 MIN [facility] Laboratory - Chemistry and C hemistry - challengeon 09-29-2023 Cobalamin (Vitamin B12) [Mass/Vol] 1712.0 pg/mL 193.0-986.0 [facility] TSH Qn 0.490 m[IU]/L 0.358-3.740 [facility] No Panel Informationon 09-28 25-Hydroxy Vitamin D Total 54.7 ng/mL [facility] Comment on above: <20 ng/mL Vit D defi cient20-<30 ng/mL Vit D [id number] ng/mL Vit D sufficient>100 ng/mL Potential Toxicity Office Visiton 09-17-2023 Follow-up visit [id number] Emy Rodriguez 1940 F Date Provider Department Center 09/17/2023 JUS PATEL [facility] No family history on file Level of Service:92914 [place] OFFICE/OUTPATIENT ESTABLISHED MOD MDM 30 MIN Reason for Visit and Comments: Atrial Fibrillation [80] Congestive Heart Failure [127] Normal [facility] HPon 07-22-[address] [facility] Electrophysiology Consult Note Reason for visit: Afib, [...] thyroid issues. She had previous seen a order processor and an outlying facility and recently moved here about 2 years ago and has not established with a order processor. She was seen by Gracia SOSA and subsequently started on anticoagulation with Eliqukelly. previously she had afib ablation with [facility] before 2009 had for unclear reasons was not placed on anticoagulation when he saw her. she got admitted to [facility] ED on 02/06/2023 following a fall. versus attributed to be a mechanical fall as she tripped on the corner curb. no loss of consciousness. CT of the head was negative for any hemorrhage. she had some lacerations which were sutured. She had a recent echocardiogram done which showed cardiomyopathy with a EF of 35 to 40%. [id number] at least 6 for age, gender, hypertension, [...] 100 mcg by mouth in the morning. rielmnv-aaam-zhvgf-or eg-capryl 100 mg-150 mg- 50 mg-150 mg capsule Take 1 capsule by mouth in the morning. venlafaxine XR (Effexor-XR (more content not included)... [facility] NURSNOTEon 07-22-2023 NURSNOTE RN educated pt on d/ c instructions. RN encouraged pt to voice any questions or concerns. Pt verbalizes no questions or concerns at this time. [facility] Basophils Auto (Bld) [#/Vol] on 07-17-2023 Basophils (Bld) [#/Vol] 0.0 10 3/uL 0.0-0.1 [facility] Basophils/100 WBC Auto (Bld) on 07-17-2023 Basophils/100 WBC (Bld) 1.0 % 0.2-2.0 [facility] Eosinophils/100 WBC Auto (Bl d)on 07-17-2023 Eosinophils/100 WBC (Bld) 1.2 % 0.9-7.0 [facility] Erythrocyte distribution wid th Auto (RBC) [Ratio]on 07-17-2023 Erythrocyte distribution width (RBC) [Ratio] 15.0 % 11.0-15.0 [facility] Estimated glomerular filtrat ion rate (GFR) non- Americanon 07-17-2023 GFR/1.73 sq M.predicted among non-blacks MDRD (S/P/Bld) [Vol rate/Area] 51 mL/min/{1.73_m2} >=60 [facility] Hematocrit Auto (Bld) [Volum e fraction]on 07-17-2023 Hematocrit (Bld) [Volume fraction] 39.9 % 36.0-48.0 [facility] Hemoglobin [Mass/volume] in Bloodon 07-17-2023 Hemoglobin (Bld) [Mass/Vol] 12.8 g/dL 12.0-16.0 [facility] Laboratory - Chemistry and C hemistry - challengeon 07-17-2023 Calcium [Mass/Vol] 9.0 mg/dL 8.5-10.1 [facility] Chloride [Moles/Vol] 105 mmol/L 98-107 [facility] CO2 [Moles/Vol] 30.0 mmol/L 21.0-32.0 [facility] Creatinine [Mass/Vol] 1.03 mg/dL 0.55-1.02 [facility] GFR/1.73 sq M.predicted MDRD (S/P/Bld) [Vol rate/Area] mL/min/{1.73_m2} >=60 [facility] Glucose [Mass/Vol] 117 mg/dL 74-106 [facility] Potassium [Moles/Vol] 4.6 mmol/L 3.5-5.1 [facility] Sodium [Moles/Vol] 142 mmol/L 136-145 [facility] Urea nitrogen [Mass/Vol] 16.0 mg/dL 7.0-18.0 [facility] Urea nitrogen/Creatinine [Mass ratio] 15.5 mg/mg [facility] Laboratory - Hematology and Cell countson 07-17-2023 Immature granulocytes/100 WBC (Bld) 0.2 % 0.0-0.5 [facility] Leukocytes [#/volume] correc anila for nucleated erythrocytes in Blood by Automated counon 07-17-2023 WBC corrected for nucl RBC Auto (Bld) [#/Vol] 4.2 10 3/uL 4.0-11.0 [facility] Lymphocytes Auto (Bld) [#/Vo l]on 07-17-2023 Lymphocytes (Bld) [#/Vol] 0.7 10 3/uL 1.2-3.8 [facility] Lymphocytes/100 WBC Auto (Bl d)on 07-17-2023 Lymphocytes/100 WBC (Bld) 17.1 % 20.5-60.0 [facility] MCH Auto (RBC) [Entitic mass ]on 07-17-2023 MCH (RBC) [Entitic mass] 31.5 pg 26.7-34.0 [facility] MCHC Auto (RBC) [Mass/Vol]on 07-17-2023 MCHC (RBC) [Mass/Vol] 32.1 g/dL 29.9-35.2 [facility] MCV Auto (RBC) [Entitic vol] on 07-17-2023 MCV (RBC) [Entitic vol] 98.3 fL 81.0-99.0 [facility] Monocytes Auto (Bld) [#/Vol] on 07-17-2023 Monocytes (Bld) [#/Vol] 0.4 10 3/uL 0.3-0.8 [facility] Monocytes/100 WBC Auto (Bld) on 07-17-2023 Monocytes/100 WBC (Bld) 9.0 % 1.7-12.0 [facility] Neutrophils Auto (Bld) [#/Vo l]on 07-17-2023 Neutrophils (Bld) [#/Vol] 3.0 10 3/uL 1.4-6.5 [facility] Neutrophils/100 WBC Auto (Bl d)on 07-17-2023 Neutrophils/100 WBC (Bld) 71.5 % 43.0-75.0 [facility] No Panel Informationon 07-17 Eosinophils # (Auto) 0.1 10 3/uL 0.0-0.7 [facility] Immature Granulocyte # (Auto) 0.01 10 3/uL 0.00-0.03 [facility] Platelet mean volume Auto (B ld) [Entitic vol]on 07-17-2023 Platelet mean volume (Bld) [Entitic vol] 9.9 fL 9.5-13.5 [facility] Platelets Auto (Bld) [#/Vol] on 07-17-2023 Platelets (Bld) [#/Vol] 188 10 3/uL 150-450 [facility] RBC Auto (Bld) [#/Vol]on RBC (Bld) [#/Vol] 4.06 10 6/uL 4.20-5.40 [facility] Serum or plasma anion gap de terminationon 07-17-2023 Anion gap [Moles/Vol] 11.6 mmol/L [facility] Office Visiton 07-14-2023 Follow-up visit [id number] Emy Rodriguez 1940 F Date Provider Department Center 07/14/2023 Anne Marie-PARAM QUIROGA [facility] No family history on file Level of Service:37641 [place] OFFICE/OUTPATIENT ESTABLISHED LOW MDM 20 MIN Normal [facility] Orders Onlyon 07-14-2023 Orders Only [id number] Emy Rodriguez 1940 F Date Provider Department Center 07/14/2023 KISHOR MONTESINOS [facility]ARY [facility] No family history on file [facility] Office Visiton 05-26-2023 Follow-up visit [id number] Emy Rodriguez 1940 F Date Provider Department Center 05/26/2023 GRACIA CHAMBERLAIN [facility] No family history on file Level of Service:25839 [place] OFFICE/OUTPATIENT ESTABLISHED MOD MDM 30 MIN Normal [facility] HPon 05-11-2023 HP History Of Present Illness Debra Rodriguez is a 82 y.o. female presenting with htn, GERD, sleep apnea, mitral valve prolapse, A-fib, c-diff, TIA, HLD, it is noted in her H&P per PCP she has been on a medication for afib but it caused her thyroid issues. She had previous seen a order processor and an outlying facility and recently moved here about 2 years ago and has not established with a order processor. She was seen by Gracia SOAS and subsequently started on anticoagulation with Eliquis. previously she had afib ablation with [facility] before 2009 had for unclear reasons was not placed on anticoagulation when he saw her. she got admitted to [facility] ED on 02/06/2023 following a fall. versus [...] Dr Nuñez. She has come for DCCV. [id number] at least 6 for age, gender, hypertension, [...] mcg by mouth in the morning. 05/11/2023 xynkusj-qmgu-rmkel-or eg-capryl 100 mg-150 mg- 50 mg-150 mg capsule Take 1 capsule by mouth in the morning. 05/11/2023 venlafaxine XR (Effexor-XR) 75 mg 24 hr capsule Take 75 mg by mouth in the morning, at noon, and at bedtime. 05/11/2023 vit C,W-Gx-zfrex-lutein-z eaxan (PreserVision AREDS-2) 250-90-40-1 mg capsule Take [...] no thoracic defo (more content not included)... [facility] NURSNOTEon 05-11-2023 NURSNOTE RN educated pt on d/ c instructions. RN encouraged pt to voice any questions or concerns. Pt verbalizes no questions or concerns at this time. [facility] NURSNOTE Bedside swallow stud y completed and passed. [facility] Office Visiton 04-23-2023 Follow-up visit [id number] Emy Rodriguez 1940 F Date Provider Department Center 04/23/2023 [id number] [facility] No family history on file Level of Service:23333 [place] POSTOP FOLLOW UP VISIT RELATED TO ORIGINAL PX [facility] BASIC METABOLIC PANELon 03-25 Anion gap [Moles/Vol] 12 mmol/L Normal - [facility] Comment on above: Performed By: #### L [id number] ####[facility] (BEAKER)[address] [place] [address] Calcium [Mass/Vol] 9.7 mg/dL Normal 8.6-10.3 [facility] Comment on above: Performed By: #### L [id number] ####[facility] (BEAKER)[address] [place] [place] [address] Chloride [Moles/Vol] 108 mmol/L High 98-107 [facility] Comment on above: Performed By: #### L [id number] ####[facility] (BEAKER)[address] [place] [place] [address] CO2 [Moles/Vol] 23 mmol/L Normal 21-31 [facility] Comment on above: Performed By: #### L [id number] ####[facility] [place] [address] Creatinine [Mass/Vol] 0.92 mg/dL Normal 0.60-1.20 [facility] Comment on above: Performed By: #### L [id number] ####[facility] ([facility])[address] [place] [address] GLOMERULAR FILTRATION RATE ML/MIN/1.73 SQ M.PREDICTED 62.2 mL/min/1.73m*2 Normal >60.0 [facility] Comment on above: Result Comment: [facility]???s estimated glomerular filtration rate (eGFR) will [...] of individuals. Performed By: #### L [id number] ####[facility] ([facility])[address] [place] [address] Glucose [Mass/Vol] 67 mg/dL Low 70-100 [facility] Comment on above: Performed By: #### L [id number] ####[facility] ([facility])[address] [place] [address] Potassium [Moles/Vol] 3.9 mmol/L Normal 3.5-5.1 [facility] Comment on above: Performed By: #### L [id number] ####[facility] ([facility])[address] [place] [place] [address] Sodium [Moles/Vol] 139 mmol/L Normal 136-145 [facility] Comment on above: Performed By: #### L [id number] ####[facility] ([facility])[address] [place] [place] [address] Urea nitrogen [Mass/Vol] 12 mg/dL Normal 7-25 [facility] Comment on above: Performed By: #### L [id number] ####[facility] [place] [address] UREA NITROGEN/CREATININE (MASS RATIO) IN SER/PLAS 13.0 Normal [facility] Comment on above: Performed By: #### L [id number] ####[facility] ([facility])[address] [place] [address] CBCon 04-11-2023 Erythrocyte distribution width (RBC) [Ratio] 14.8 % Normal 11.5-15.0 [facility] Comment on above: Performed By: #### L [id number] ####[facility] ([facility])[address] [place] [address] ERYTHROCYTE MEAN CORPUSCULAR HEMOGLOBIN CONCENTRATION (G/DL) BY AUTOMATED 33.3 g/dL Normal 32.0-35.0 [facility] Comment on above: Performed By: #### L [id number] ####[facility] ([facility] [place] [address] Hematocrit (Bld) [Volume fraction] 40.0 % Normal 36.0-48.0 [facility] Comment on above: Performed By: #### L [id number] ####[facility] ([facility] [place] [address] Hemoglobin (Bld) [Mass/Vol] 13.3 g/dL Normal 12.0-15.0 [facility] Comment on above: Performed By: #### L [id number] ####[facility] ([facility] [place] [address] MCH (RBC) [Entitic mass] 31.7 pg Normal 27.0-33.0 [facility] Comment on above: Performed By: #### L [id number] ####[facility] ([facility]ER)[address] [place] [address] MCV (RBC) [Entitic vol] 95.5 fL Normal 82.0-98.0 [facility] Comment on above: Performed By: #### L [id number] ####[facility] ([facility]ER)[address] [place] [address] PLATELETS (10*3/UL) IN BLOOD AUTOMATED COUNT 245 10*3/uL Normal 150-400 [facility] Comment on above: Performed By: #### L [id number] ####[facility] ([facility]ER)[address] [place] [address] RBC (Bld) [#/Vol] 4.19 10*6/uL Normal 3.80-5.00 [facility] Comment on above: Performed By: #### L [id number] ####[facility] [place] [address] WBC (Bld) [#/Vol] 9.32 10*3/uL Normal 4.00-10.60 [facility] Comment on above: Performed By: #### L [id number] ####[facility] ([facility] [place] [address] DSon 04-11-2023 DS - Attestation signed by [...] AREDS-2 250-90-40-1 mg capsule Generic drug: vit C,T-En-xelgr-lutein-z eaxan Synthroid 100 mcg tablet Generic drug: levothyroxine bjuslul-pool-exlyg-or eg-capryl 100 mg-150 mg- 50 mg-150 mg capsule venlafaxine XR 75 mg 24 hr capsule Commonly known as: Effexor-XR Vitamin D3 10 mcg (400 unit) capsule Generic drug: cholecalciferol (vitamin D3) Where to Get Your Medications These medications were sent to [facility]/pharmacy #[id number] - [facility] [address] [facility] [place] [id number] apixaban 5 mg tablet Activity Patient currently [...] utilizing a buri (more content not included)... [facility] POCT GLUCOSE METER UNSOLICIT ED RESULTSon 04-11-2023 Glucose [Mass/Vol] 143 mg/dL High 70-105 [facility] Comment on above: Order Comment: Waive d Testing in the ED is performed under the ED CLIA certificate #[id number]. Result Comment: [email or web address] Performed By: #### L [id number] #### [facility] ([facility]) [address] [place] [address] Glucose [Mass/Vol] 81 mg/dL Normal 70-105 [facility] Comment on above: Order Comment: Waive d Testing in the ED is performed under the ED CLIA certificate #[id number]. Result Comment: [email or web address] Performed By: #### L [id number] ####[facility] ([facility])[address] [place] [address] 30on 04-10-2023 30 The patient is Moderately Stable - Low risk of patient condition declining or worsening The patient's goals for the shift include comfort The clinical goals for the shift include VSS Over the shift, the patient did make progress toward her goals. Normal [facility] 30 The patient is Moderately Stable - Low risk of patient condition declining or worsening The patient's goals for the shift include comfort The clinical goals for the shift include VSS [facility] HPon 04-10-2023 HP History Of Present [...] Assessment/Plan Principal Problem: AV block Pacemaker Jovanny Nuñez MD [facility] NURSNOTEon 04-10-2023 NURSNOTPaul RN messaged hospitalist regarding patient admit orders and med rec, per hospitalist cardiology is primary. RN paged and received a call from Jewel, rn long term care order processor, and was told that hospitalist was primary. RN contacted hospitalist again regarding information. Per hospitalist, they had talked to Jewel and informed him that cardiology was primary. RN told that [place] will contact [place] and place further orders. Sandwich Board Carrier will update day team and await further orders. [facility] Orders Onlyon 04-10-2023 Orders Only [id number] Emy Rodriguez [address] [facility] Department [place] 04/10/2023 Berkley-HERMINIA GOMEZ HVC VASC LAB [place] [facility] No family history on file [facility] Prep for Procedureon 023 Prep for Procedure [id number] Emy Rodriguez [address] [facility] 04/10/2023 Jac-SHAW MONK NVCF IM [facility] No family history on file [facility] Follow-Upon 03-27-2023 Follow-Up [id number] Emy Rodriguez [address] 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 The patient was examined and there are no changes to the H&P. We will proceed with coronary angiogram for newly diagnosed HFrEF with ejection fraction 35 to 40%. [facility] NURSNOTEon 02-26-2023 NURSNOTE RN educated pt on d/ c instructions. RN encouraged pt to voice any questions or concerns. Pt verbalizes no questions or concerns at this time. Pt was wheeled off of unit with all of belongings. [facility] 02-17-[address] [facility] Electrophysiology Consult Note Reason for visit: Afib HPI: Debra Rodriguez is a 82 y.o. year old with past medical history of htn, GERD, sleep apnea, mitral valve prolapse, A-fib, c-diff, TIA, HLD, it is noted in her H&P per PCP she has been on a medication for afib but it caused her thyroid issues. She had previous seen a order processor and an outlying facility and recently moved here about 2 years ago and has not established with a order processor. She was seen by Gracia SOSA and subsequently started on anticoagulation with Eliquis. previously she had afib ablation with [facility] before 2009 had for unclear reasons was not placed on anticoagulation when he saw her. she got admitted to [facility] on 02/06/2023 following a fall. versus attributed to be a mechanical fall as she tripped on the corner curb. no loss of consciousness. CT of the head was negative for any hemorrhage. she had some lacerations which were sutured. She had a recent echocardiogram done which showed cardiomyopathy with a EF of 35 to 40%. [id number] at least 6 for age, gender, hypertension, [...] upstroke, n (more content not included)... Normal [facility] Office Visiton 02-17-2023 Follow-up visit [id number] Emy Rodriguez 1940 F Date Provider Department Center 02/17/2023 PARAM STODDARD [facility] No family history on file Level of Service:10802 [place] OFFICE/OUTPATIENT NEW [facility] MDM 60-74 MINUTES Normal [facility] Orders Onlyon 02-17-2023 Orders Only [id number] Emy Rodriguez 1940 F Date Provider Department Center 02/17/2023 KISHOR MONTESINOS [facility] [facility] No family history on file Normal [facility] BNPon 07-24-2022 Natriuretic peptide B (Bld) [Mass/Vol] 1076.0 pg/mL Normal <=1,800.0 [facility] Comment on above: Performed By: #### L IPID, TSH, BNP, CMP #### [facility] [address] [place] [address] [address] Ana Fish CBC AUTO DIFFon 07-24-2022 BASO # 0.0 103/ul Normal 0.0-0.1 [facility] Comment on above: Performed By: #### C BC #### [facility] [address] [place] [address] Dr. Ana Fish Basophils/100 WBC (Bld) 0.4 % Normal 0.2-2.0 [facility] Comment on above: Performed By: #### C BC #### [facility] [address] [place] [address] Dr. Ana Fish EO # 0.1 103/ul Normal 0.0-0.7 [facility] Comment on above: Performed By: #### C BC #### [facility] [address] [place] [address] Dr. Ana Fish Eosinophils/100 WBC (Bld) 1.3 % Normal 0.9-7.0 [facility] Comment on above: Performed By: #### C BC #### [facility] [address] [place] [address] Dr. Ana Fish Erythrocyte distribution width (RBC) [Ratio] 15.5 % Critically high 11.0-15.0 [facility] Comment on above: Performed By: #### C BC #### [facility] [address] [place] [address] Dr. Ana Fish Hematocrit (Bld) [Volume fraction] 37.0 % Normal 36.0-48.0 [facility] Comment on above: Performed By: #### C BC #### [facility] [address] [place] [address] Dr. Ana Fish Hemoglobin (Bld) [Mass/Vol] 12.7 g/dL Normal 12.0-16.0 [facility] Comment on above: Performed By: #### C BC #### [facility] [address] [place] [address] Dr. Ana Fish IG # 0.03 10e3/ul Normal 0.00-0.03 [facility] Comment on above: Performed By: #### C BC #### [facility] [address] [place] [address] Dr. Ana Fish IG % 0.4 % Normal 0.0-0.5 [facility] Comment on above: Performed By: #### C BC #### [facility] [address] [place] [address] Dr. Ana Fish LYMPH # 1.6 103/ul Normal 1.2-3.8 [facility] Comment on above: Performed By: #### C BC #### [facility] [address] [place] [address] Dr. Ana Fish Lymphocytes/100 WBC (Bld) 19.0 % Critically low 20.5-60.0 [facility] Comment on above: Performed By: #### C BC #### [facility] [address] [place] [address] Dr. Ana Fish MANUAL DIFF REQ NO Normal [facility] Comment on above: Performed By: #### C BC #### [facility] [address] [place] [address] Dr. Ana Fish MCH (RBC) [Entitic mass] 32.3 pg Normal 26.7-34.0 [facility] Comment on above: Performed By: #### C BC #### [facility] [address] [place] [address] Dr. Ana Fish MCHC (RBC) [Mass/Vol] 34.3 g/dL Normal 29.9-35.2 [facility] Comment on above: Performed By: #### C BC #### [facility] [address] [place] [address] Dr. Ana Fish MCV (RBC) [Entitic vol] 94.1 fL Normal 81.0-99.0 [facility] Comment on above: Performed By: #### C BC #### [facility] [address] [place] [address] [address] Ana Fish MONO # 0.8 103/ul Normal 0.3-0.8 [facility] Comment on above: Performed By: #### C BC #### [facility] [address] [place] [address] [address] Ana Fish Monocytes/100 WBC (Bld) 9.7 % Normal 1.7-12.0 [facility] Comment on above: Performed By: #### C BC #### [facility] [address] [place] [address] Dr. Ana Fish NEUT # 5.7 103/ul Normal 1.4-6.5 [facility] Comment on above: Performed By: #### C BC #### [facility] [address] [place] [address] Dr. Ana Fish Neutrophils/100 WBC (Bld) 69.2 % Normal 43.0-75.0 [facility] Comment on above: Performed By: #### C BC #### [facility] [address] [place] [address] Dr. Ana Fish Platelet mean volume (Bld) [Entitic vol] 9.9 fL Normal 9.5-13.5 [facility] Comment on above: Performed By: #### C BC #### [facility] [address] [place] [address] Dr. Ana Fish PLT 273 103/ul Normal 150-450 [facility] Comment on above: Performed By: #### C BC #### [facility] [address] [place] [address] Dr. Ana Fish RBC 3.93 106/ul Critically low 4.20-5.40 [facility] Comment on above: Performed By: #### C BC #### [facility] [address] [place] [address] Dr. Ana Fish WBC 8.2 103/ul Normal 4.0-11.0 [facility] Comment on above: Performed By: #### C BC #### [facility] [address] [place] [address] Dr. Ana Fish FREE T4on 07-24-2022 Free T4 [Mass/Vol] 1.34 ng/dL Normal 0.76-1.46 [facility] Comment on above: Performed By: #### F T4 #### [facility] [address] [place] [address] Dr. Ana Fish LIPID PROFILEon 07-24-2022 CHOL-HDL RATIO NORM SEE BELOW Normal [facility] Comment on above: Result Comment: 3.3 - 4.4 LOW RISK 4.4 - 7.1 AVERAGE RISK 7.1 - 11.0 MODERATE RISK >11.0 HIGH RISK Performed By: #### L IPID, TSH, BNP, CMP #### [facility] [address] [place] [address] Dr. Ana Fish Cholesterol [Mass/Vol] 199 mg/dL Normal <=200 [facility] Comment on above: Performed By: #### L IPID, TSH, BNP, CMP #### [facility] [address] [address] [address] Ana Fish Cholesterol in HDL [Mass/Vol] 88 mg/dL Critically high 40-60 [facility] Comment on above: Performed By: #### L IPID, TSH, BNP, CMP #### [facility] [address] [address] [address] Ana Fish Cholesterol in LDL [Mass/Vol] 97.6 mg/dL Normal [facility] Comment on above: Performed By: #### L IPID, TSH, BNP, CMP #### [facility] [address] [address] [address] Ana Fish Cholesterol.total/C holesterol in HDL [Mass ratio] 2.3 {ratio} Normal [facility] Comment on above: Performed By: #### L IPID, TSH, BNP, CMP #### [facility] [address] [address] [address] Ana Fish HDL NORMAL > or = 60 mg/dl - LO W CARDIOVASCULAR RISK <40 mg/dl - HIGH CARDIOVASCULAR RISK Normal [facility] Comment on above: Performed By: #### L IPID, TSH, BNP, CMP #### [facility] [address] [address] [address] Ana Fish LDL CALC NORMAL SEE BELOW Normal [facility] Comment on above: Result Comment: <100 mg/dl OPTIMAL 100 - 129 mg/dl NEAR OR ABOVE OPTIMAL 130 - 159 mg/dl BORDERLINE HIGH 160 - 189 mg/dl HIGH >190 mg/dl VERY HIGH Performed By: #### L IPID, TSH, BNP, CMP #### [facility] [address] [place] [address] [address] Ana Fish Triglyceride [Mass/Vol] 67 mg/dL Normal <=150 [facility] Comment on above: Performed By: #### L IPID, TSH, BNP, CMP #### [facility] [address] [place] [address] [address] Ana Fish VLDL CALC 13.4 mg/dL Normal [facility] Comment on above: Performed By: #### L IPID, TSH, BNP, CMP #### [facility] [address] [place] [address] Dr. Ana Fish PROF 14(COMP METB)on 023 Albumin [Mass/Vol] 3.8 g/dL Normal 3.4-5.0 [facility] Comment on above: Performed By: #### L IPID, TSH, BNP, CMP #### [facility] [address] [place] [address] [address] Ana Fish Albumin/Globulin [Mass ratio] 1.3 {ratio} Normal [facility] Comment on above: Performed By: #### L IPID, TSH, BNP, CMP #### [facility] [address] [place] [address] Dr. Ana Fish ALP [Catalytic activity/Vol] 81 U/L Normal 46-116 [facility] Comment on above: Performed By: #### L IPID, TSH, BNP, CMP #### [facility] [address] [place] [address] Dr. Ana Fish ALT [Catalytic activity/Vol] 16 U/L Normal 14-59 [facility] Comment on above: Performed By: #### L IPID, TSH, BNP, CMP #### [facility] [address] [place] [address] Dr. Ana Fish Anion gap [Moles/Vol] 10.3 mmol/L Normal [facility] Comment on above: Performed By: #### L IPID, TSH, BNP, CMP #### [facility] [address] [place] [address] Dr. Ana Fish AST [Catalytic activity/Vol] 18 U/L Normal 15-37 [facility] Comment on above: Performed By: #### L IPID, TSH, BNP, CMP #### [facility] [address] [place] [address] Dr. Ana Fish Bilirubin [Mass/Vol] 0.8 mg/dL Normal 0.2-1.0 [facility] Comment on above: Performed By: #### L IPID, TSH, BNP, CMP #### [facility] [address] [place] [address] Dr. Ana Fish Calcium [Mass/Vol] 9.3 mg/dL Normal 8.5-10.1 [facility] Comment on above: Performed By: #### L IPID, TSH, BNP, CMP #### [facility] [address] [place] [address] Dr. Ana Fish Chloride [Moles/Vol] 103 mmol/L Normal 98-107 [facility] Comment on above: Performed By: #### L IPID, TSH, BNP, CMP #### [facility] [address] [place] [address] Dr. Ana Fish CO2 [Moles/Vol] 32.1 mmol/L Critically high 21.0-32.0 [facility] Comment on above: Performed By: #### L IPID, TSH, BNP, CMP #### [facility] [address] [place] [address] Dr. Ana Fish Creatinine [Mass/Vol] 0.85 mg/dL Normal 0.55-1.02 [facility] Comment on above: Performed By: #### L IPID, TSH, BNP, CMP #### [facility] [address] [place] [address] Dr. Ana Fish EGFR-AF MAURITIAN >60 Normal >=60 [facility] Comment on above: Performed By: #### L IPID, TSH, BNP, CMP #### [facility] [address] [place] [address] Dr. Ana Fish EGFR-NON AF MAURITIAN >60 Normal >=60 [facility] Comment on above: Performed By: #### L IPID, TSH, BNP, CMP #### [facility] [address] [address] [address] Ana Fish Globulin (S) [Mass/Vol] 3.0 g/dL Normal [facility] Comment on above: Performed By: #### L IPID, TSH, BNP, CMP #### [facility] [address] [place] [address] Dr. Ana Fish Glucose [Mass/Vol] 101 mg/dL Normal 74-106 [facility] Comment on above: Performed By: #### L IPID, TSH, BNP, CMP #### [facility] [address] [address] [address] Ana Fish Potassium [Moles/Vol] 3.4 mmol/L Critically low 3.5-5.1 [facility] Comment on above: Performed By: #### L IPID, TSH, BNP, CMP #### [facility] [address] [place] [address] Dr. Ana Fish Protein [Mass/Vol] 6.8 g/dL Normal 6.4-8.2 [facility] Comment on above: Performed By: #### L IPID, TSH, BNP, CMP #### [facility] [address] [place] [address] Dr. Ana Fish Sodium [Moles/Vol] 142 mmol/L Normal 136-145 [facility] Comment on above: Performed By: #### L IPID, TSH, BNP, CMP #### [facility] [address] [place] [address] Dr. Ana Fish Urea nitrogen [Mass/Vol] 12.0 mg/dL Normal 7.0-18.0 [facility] Comment on above: Performed By: #### L IPID, TSH, BNP, CMP #### [facility] [address] [place], [place] [address] Dr. Ana Fish Urea nitrogen/Creatinine [Mass ratio] 14.1 mg/mg Normal [facility] Comment on above: Performed By: #### L IPID, TSH, BNP, CMP #### [facility] [address] [place], [place] [address] Dr. Ana Fish TSHon 07-24-2022 TSH 2.122 uIU/mL Normal 0.358-3.740 [facility] Comment on above: Performed By: #### L IPID, TSH, BNP, CMP #### [facility] [address] [place], [place] [address] Dr. Ana Fish XR CHEST AP/PA AND [...] 3. 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 This is not significantly changed since the prior exam. 4. 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 No acute osseous abnormality. 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 Moderate compression deformity of T12 vertebral body. This is age indeterminate. Recommend further evaluation with cross-sectional imaging. [employer] Workstation ID: [id number] [facility] EXAMINATION: XR CHES T AP/PA AND [...] is persistent elevation of the right hemidiaphragm. 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 Recommend further evaluation with cross-sectional imaging. 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 FINDINGS: PA [...] indeterminate. Recommend further evaluation with cross-sectional imaging. [employer] Workstation ID: [id number] Dictated by: ARNOLDO HOUGH on ThuJan 06, 2020 4:42:45 PM EDT Transcribed by: RIAZ MURRAY on ThuJan 06, 2020 5:12:15 PM EDT Finalized by: ARNOLDO HOUGH on ThuJan 06, 2020 7:55:51 PM EDT Normal [facility] Comment on above: Order Comment: Injur [...] C408, C141, C48, C45, C119, C120 #### [facility] [facility] [address] [place] [address] B/C Ratio 15.0 Ratio Normal [facility] Comment on above: Order Comment: Fasti ng: Unknown Performed By: #### C 80, C400, C408, C141, C48, C45, C119, C120 #### [facility] [address] [facility] [facility] [address] [place] [address] Calcium [Mass/Vol] 10.2 mg/dL Normal 8.5-10.5 [facility] Comment on above: Order Comment: Fasti ng: Unknown Performed By: #### C 80, C400, C408, C141, C48, C45, C119, C120 #### [facility] [facility] [address] [place] [address] Chloride [Moles/Vol] 101 mmol/L Normal 98-107 [facility] Comment on above: Order Comment: Fasti ng: Unknown Performed By: #### C 80, C400, C408, C141, C48, C45, C119, C120 #### [facility] [address] [facility] [address] [place] [address] CO2 [Moles/Vol] 30.0 mmol/L Normal 22.0-30.[address] [facility] Comment on above: Order Comment: Fasti ng: Unknown Performed By: #### C 80, C400, C408, C141, C48, C45, C119, C120 #### [facility] [address] [facility] [address] [place] [address] Creatinine [Mass/Vol] 1.0 mg/dL Normal 0.1-1.2 [facility] Comment on above: Order Comment: Fasti ng: Unknown Performed By: #### C 80, C400, C408, C141, C48, C45, C119, C120 #### [facility] [address] [facility] [place] [address] GFR/1.73 sq M.predicted MDRD (S/P/Bld) [Vol rate/Area] 54 mL/min per 1.73 Low >60 [facility] Comment on above: Order Comment: Fasti ng: Unknown Result Comment: The GFR estimate is not adjusted for race. If the patient's race is -[place], the GFR estimate must be multiplied by a factor of 1.21. Performed By: #### C 80, C400, C408, C141, C48, C45, C119, C120 #### [facility] [address] [facility] [address] [place] [address] Glucose [Mass/Vol] 91 mg/dL Normal 74-100 [facility] Comment on above: Order Comment: Fasti ng: Unknown Performed By: #### C 80, C400, C408, C141, C48, C45, C119, C120 #### [facility] [address] [facility] [address] [place] [address] Potassium [Moles/Vol] 3.9 mmol/L Normal 3.5-5.3 [facility] Comment on above: Order Comment: Fasti ng: Unknown Performed By: #### C 80, C400, C408, C141, C48, C45, C119, C120 #### [facility] [address] [facility] [facility] [address] [place] [address] Sodium [Moles/Vol] 140 mmol/L Normal 135-145 [facility] Comment on above: Order Comment: Fasti ng: Unknown Performed By: #### C 80, C400, C408, C141, C48, C45, C119, C120 #### [facility] [address] [facility] [facility] [address] [place] [address] Urea nitrogen [Mass/Vol] 15 mg/dL Normal 6-22 [facility] Comment on above: Order Comment: Fasti ng: Unknown Performed By: #### C 80, C400, C408, C141, C48, C45, C119, C120 #### [facility] [address] [place] [address] [address] [place] [address] Free T4on 03-24-2019 Free T4 [Mass/Vol] 1.9 ng/dL High 0.7-1.8 [facility] Comment on above: Order Comment: Fasti ng: Unknown Performed By: #### C 80, C400, C408, C141, C48, C45, C119, C120 #### [facility] [address] [place] [address] [address] [place] [address] TSHon 03-24-2019 TSH Qn 2.95 MIU/mL Normal 0.50-6.00 [facility] Comment on above: Performed By: #### C 80, C400, C408, C141, C48, C45, C119, C120 #### [facility] [facility] [address] [place] [address] Cholesterolon 02-10-2019 Cholesterol [Mass/Vol] 200 mg/dL High <200 [facility] Comment on above: Order Comment: Fasti ng: Unknown Performed By: #### C 80, C400, C408, C141, C48, C45, C119, C120 #### [facility] [address] [facility] [address] [place] [address] Direct LDLon 02-10-2019 Cholesterol in LDL [Mass/Vol] 88 mg/dL Normal <130 [facility] Comment on above: Order Comment: Fasti ng: Unknown Result Comment: LDL goal dependent upon individual risk Performed By: #### C 80, C400, C408, C141, C48, C45, C119, C120 #### [facility] [address] [facility] [address] [place] [address] HDLon 02-10-2019 Cholesterol in HDL [Mass/Vol] 90 mg/dL Normal >50 [facility] Comment on above: Order Comment: Fasti ng: Unknown Performed By: #### C 80, C400, C408, C141, C48, C45, C119, C120 #### [facility] [facility] [address] [place] [id number] Triglycerideon 02-10-2019 Triglyceride [Mass/Vol] 119 mg/dL Normal <150 [facility] Comment on above: Order Comment: Fasti ng: Unknown Performed By: #### C 80, C400, C408, C141, C48, C45, C119, C120 #### [facility] [address] [place] [address] [address] [place] [address] B12/Folateon 02-09-2019 Cobalamin (Vitamin B12) [Mass/Vol] 989 pg/mL High 239-931 [facility] Comment on above: Order Comment: Fasti ng: Unknown Performed By: #### C 80, C400, C408, C141, C48, C45, C119, C120 #### [facility] [facility] [address] [place] [address] Folate 8.12 ng/mL Normal 2.80-20.00 [facility] Comment [...] C408, C141, C48, C45, C119, C120 #### [facility] [facility] [address] [place] [address] Basic Metabolic Panelon 01-23 Anion gap [Moles/Vol] 10.00 mmol/L Normal 8.00-16.00 [facility] Comment on above: Order Comment: Items in this order include: Basic Metabolic Panel , Iron and TIBC, Hepatic Panel, Ferritin, Free T4, TSH, B12/Folate, Vit D 25 [place] (Total), CBC with differential, HgbA1C, Urine, Random, Albumin/Crea , , , , , Testing Performed By: [facility] [address] [place] [address]. [place] [address] Dr. Irma Shahid, Retail Marketing Manager Performed By: #### C 406, C3763, C1573, C80, C400, C408, C409, C136, C48, C45, C215 #### [facility] [address] [place] [address] [place] [address] B/C Ratio 16.0 Ratio Normal [facility] Comment on above: Order Comment: Items in this order include: Basic Metabolic Panel , Iron and TIBC, Hepatic Panel, Ferritin, Free T4, TSH, B12/Folate, Vit D 25 [place] (Total), CBC with differential, HgbA1C, Urine, Random, Albumin/Crea , , , , , Testing Performed By: [facility] [address] [place] [address]. [place] [address] Dr. Irma Shahid, Retail Marketing Manager Performed By: #### C 406, C3763, C1573, C80, C400, C408, C409, C136, C48, C45, C215 #### [facility] [address] [place] [address] [address] [place] [address] Calcium [Mass/Vol] 9.4 mg/dL Normal 8.5-10.5 [facility] Comment on above: Order Comment: Items in this order include: Basic Metabolic Panel , Iron and TIBC, Hepatic Panel, Ferritin, Free T4, TSH, B12/Folate, Vit D 25 [place] (Total), CBC with differential, HgbA1C, Urine, Random, Albumin/Crea , , , , , Testing Performed By: [facility] [address] [place] [address]. [place] [address] Dr. Irma Shahid, Retail Marketing Manager Performed By: #### C 406, C3763, C1573, C80, C400, C408, C409, C136, C48, C45, C215 #### [facility] [facility] [address] [place] [address] Chloride [Moles/Vol] 101 mmol/L Normal 98-107 [facility] Comment on above: Order Comment: Items in this order include: Basic Metabolic Panel , Iron and TIBC, Hepatic Panel, Ferritin, Free T4, TSH, B12/Folate, Vit D 25 [place] (Total), CBC with differential, HgbA1C, Urine, Random, Albumin/Crea , , , , , Testing Performed By: [facility] [address] [place] [address]. [place] [address] Dr. Irma Shahid, Retail Marketing Manager Performed By: #### C 406, C3763, C1573, C80, C400, C408, C409, C136, C48, C45, C215 #### [facility] [address] [place] [address] [address] [place] [address] CO2 [Moles/Vol] 27.0 mmol/L Normal 22.0-30.[address] [facility] Comment on above: Order Comment: Items in this order include: Basic Metabolic Panel , Iron and TIBC, Hepatic Panel, Ferritin, Free T4, TSH, B12/Folate, Vit D 25 [place] (Total), CBC with differential, HgbA1C, Urine, Random, Albumin/Crea , , , , , Testing Performed By: [facility] [address] [place] [address]. [place] [address] Dr. Irma Shahid, Retail Marketing Manager Performed By: #### C 406, C3763, C1573, C80, C400, C408, C409, C136, C48, C45, C215 #### [facility] [address] [facility] [place] [address] Creatinine [Mass/Vol] 1.5 mg/dL High 0.1-1.2 [facility] Comment on above: Order Comment: Items in this order include: Basic Metabolic Panel , Iron and TIBC, Hepatic Panel, Ferritin, Free T4, TSH, B12/Folate, Vit D 25 [place] (Total), CBC with differential, HgbA1C, Urine, Random, Albumin/Crea , , , , , Testing Performed By: [facility] [address] [place] [address]. [place] [address] Dr. Irma Shahid, Retail Marketing Manager Performed By: #### C 406, C3763, C1573, C80, C400, C408, C409, C136, C48, C45, C215 #### [facility] [address] [place] [address] [address] [place] [address] GFR/1.73 sq M.predicted MDRD (S/P/Bld) [Vol rate/Area] 34 mL/min per 1.73 Low >60 [facility] Comment on above: Order Comment: Items in this order include: Basic Metabolic Panel , Iron and TIBC, Hepatic Panel, Ferritin, Free T4, TSH, B12/Folate, Vit D 25 [place] (Total), CBC with differential, HgbA1C, Urine, Random, Albumin/Crea , , , , , Testing Performed By: [facility] [address] [place] [address]. [place] [address] Dr. Irma Shahid, Retail Marketing Manager Result Comment: The GFR estimate is not adjusted for race. If the patient's race is -[place], the GFR estimate must be multiplied by a factor of 1.21. Performed By: #### C 406, C3763, C1573, C80, C400, C408, C409, C136, C48, C45, C215 #### [facility] [address] [facility] [address] [place] [address] Glucose [Mass/Vol] 93 mg/dL Normal 74-100 [facility] Comment on above: Order Comment: Items in this order include: Basic Metabolic Panel , Iron and TIBC, Hepatic Panel, Ferritin, Free T4, TSH, B12/Folate, Vit D 25 [place] (Total), CBC with differential, HgbA1C, Urine, Random, Albumin/Crea , , , , , Testing Performed By: [facility] [address] [place] [address] Dr. Irma Shahid, Retail Marketing Manager Performed By: #### C 406, C3763, C1573, C80, C400, C408, C409, C136, C48, C45, C215 #### [facility] [address] [place] [address] [address] - [place] [id number] Potassium [Moles/Vol] 4.8 mmol/L Normal 3.5-5.3 [facility] Comment on above: Order Comment: Items in this order include: Basic Metabolic Panel , Iron and TIBC, Hepatic Panel, Ferritin, Free T4, TSH, B12/Folate, Vit D 25 [place] (Total), CBC with differential, HgbA1C, Urine, Random, Albumin/Crea , , , , , Testing Performed By: [facility] [address] [place], [place] [address] Dr. Irma Shahid, Retail Marketing Manager Performed By: #### C 406, C3763, C1573, C80, C400, C408, C409, C136, C48, C45, C215 #### [facility] [address] [place] [address] [place] [address] Sodium [Moles/Vol] 138 mmol/L Normal 135-145 [facility] Comment on above: Order Comment: Items in this order include: Basic Metabolic Panel , Iron and TIBC, Hepatic Panel, Ferritin, Free T4, TSH, B12/Folate, Vit D 25 [place] (Total), CBC with differential, HgbA1C, Urine, Random, Albumin/Crea , , , , , Testing Performed By: [facility] [address] [place] [address] [address] [address] Irma Shahid, Retail Marketing Manager Performed By: #### C 406, C3763, C1573, C80, C400, C408, C409, C136, C48, C45, C215 #### [facility] [address] [place] [address] [place] [address] Urea nitrogen [Mass/Vol] 24 mg/dL High 6-22 [facility] Comment on above: Order Comment: Items in this order include: Basic Metabolic Panel , Iron and TIBC, Hepatic Panel, Ferritin, Free T4, TSH, B12/Folate, Vit D 25 [place] (Total), CBC with differential, HgbA1C, Urine, Random, Albumin/Crea , , , , , Testing Performed By: [facility] [address] [place], [place] [address] Dr. Irma Shahid, Retail Marketing Manager Performed By: #### C 406, C3763, C1573, C80, C400, C408, C409, C136, C48, C45, C215 #### [facility] [address] [place] [address] [address] [place] [id number] CBC with differentialon 01-23 Basophils (Bld) [#/Vol] 0.0 K CUMM Normal 0.0-0.2 [facility] Comment on above: Order Comment: Items in this order include: Basic Metabolic Panel , Iron and TIBC, Hepatic Panel, Ferritin, Free T4, TSH, B12/Folate, Vit D 25 [place] (Total), CBC with differential, HgbA1C, Urine, Random, Albumin/Crea , , , , , Testing Performed By: [facility] [address] [place] [address]. [place] [id number] Dr. Irma Shahid, Retail Marketing Manager Performed By: #### C 406, C3763, C1573, C80, C400, C408, C409, C136, C48, C45, C215 #### [facility] [address] [place] [address] [address] [place] [address] Basophils/100 WBC (Bld) 0.4 % Normal 0.0-3.0 [facility] Comment on above: Order Comment: Items in this order include: Basic Metabolic Panel , Iron and TIBC, Hepatic Panel, Ferritin, Free T4, TSH, B12/Folate, Vit D 25 [place] (Total), CBC with differential, HgbA1C, Urine, Random, Albumin/Crea , , , , , Testing Performed By: [facility] [address] [place], [place] [address] Dr. Irma Shahid, Retail Marketing Manager Performed By: #### C 406, C3763, C1573, C80, C400, C408, C409, C136, C48, C45, C215 #### [facility] [address] [place] [address] [address] [place] [address] Eosinophils (Bld) [#/Vol] 0.1 K CUMM Normal 0.0-0.4 [facility] Comment on above: Order Comment: Items in this order include: Basic Metabolic Panel , Iron and TIBC, Hepatic Panel, Ferritin, Free T4, TSH, B12/Folate, Vit D 25 [place] (Total), CBC with differential, HgbA1C, Urine, Random, Albumin/Crea , , , , , Testing Performed By: [facility] [address] [place], [place] [address] Dr. Irma Shahid, Retail Marketing Manager Performed By: #### C 406, C3763, C1573, C80, C400, C408, C409, C136, C48, C45, C215 #### [facility] [address] [place] [address] [address] [place] [address] Eosinophils/100 WBC (Bld) 1.5 % Normal 0.0-7.0 [facility] Comment on above: Order Comment: Items in this order include: Basic Metabolic Panel , Iron and TIBC, Hepatic Panel, Ferritin, Free T4, TSH, B12/Folate, Vit D 25 [place] (Total), CBC with differential, HgbA1C, Urine, Random, Albumin/Crea , , , , , Testing Performed By: [facility] [address] [place] [address] [address] [address] Irma Shahid, Retail Marketing Manager Performed By: #### C 406, C3763, C1573, C80, C400, C408, C409, C136, C48, C45, C215 #### [facility], [facility]. [facility] [facility] [address] [place] [address] Erythrocyte distribution width (RBC) [Ratio] 14.4 % Normal 11.5-15.5 [facility] Comment on above: Order Comment: Items in this order include: Basic Metabolic Panel , Iron and TIBC, Hepatic Panel, Ferritin, Free T4, TSH, B12/Folate, Vit D 25 [place] (Total), CBC with differential, HgbA1C, Urine, Random, Albumin/Crea , , , , , Testing Performed By: [facility] [address] [place], [place] [address] Dr. Irma Shahid, Retail Marketing Manager Performed By: #### C 406, C3763, C1573, C80, C400, C408, C409, C136, C48, C45, C215 #### [facility] [address] [facility] [address] [place] [address] Hematocrit (Bld) [Volume fraction] 38.4 % Normal 37.0-47.0 [facility] Comment on above: Order Comment: Items in this order include: Basic Metabolic Panel , Iron and TIBC, Hepatic Panel, Ferritin, Free T4, TSH, B12/Folate, Vit D 25 [place] (Total), CBC with differential, HgbA1C, Urine, Random, Albumin/Crea , , , , , Testing Performed By: [facility] [address] [place] [address] [address] [address] Irma Shahid, Retail Marketing Manager Performed By: #### C 406, C3763, C1573, C80, C400, C408, C409, C136, C48, C45, C215 #### [facility] [facility] [address] [place] [address] Hemoglobin (Bld) [Mass/Vol] 12.7 g/dL Normal 11.5-15.5 [facility] Comment on above: Order Comment: Items in this order include: Basic Metabolic Panel , Iron and TIBC, Hepatic Panel, Ferritin, Free T4, TSH, B12/Folate, Vit D 25 [place] (Total), CBC with differential, HgbA1C, Urine, Random, Albumin/Crea , , , , , Testing Performed By: [facility] [address] [place] [address]. [place] [address] Dr. Irma Shahid, Retail Marketing Manager Performed By: #### C 406, C3763, C1573, C80, C400, C408, C409, C136, C48, C45, C215 #### [facility] [address] [place] [address] [address] [place] [address] ImmGrn # 0.0 K CUMM Normal 0.0-0.3 [facility] Comment on above: Order Comment: Items in this order include: Basic Metabolic Panel , Iron and TIBC, Hepatic Panel, Ferritin, Free T4, TSH, B12/Folate, Vit D 25 [place] (Total), CBC with differential, HgbA1C, Urine, Random, Albumin/Crea , , , , , Testing Performed By: [facility] [address] [place] [address]. [place] [id number] Dr. Irma Shahid, Retail Marketing Manager Performed By: #### C 406, C3763, C1573, C80, C400, C408, C409, C136, C48, C45, C215 #### [facility] [address] [place] [address] [address] [place] [address] ImmGrn % 0.3 % Normal 0.0-3.0 [facility] Comment on above: Order Comment: Items in this order include: Basic Metabolic Panel , Iron and TIBC, Hepatic Panel, Ferritin, Free T4, TSH, B12/Folate, Vit D 25 [place] (Total), CBC with differential, HgbA1C, Urine, Random, Albumin/Crea , , , , , Testing Performed By: [facility] [address] [place] [address]. [place] [address] Dr. Irma Shahid, Retail Marketing Manager Performed By: #### C 406, C3763, C1573, C80, C400, C408, C409, C136, C48, C45, C215 #### [facility] [address] [facility] [address] [place] [address] Lymphocytes (Bld) [#/Vol] 1.2 K CUMM Normal 0.7-4.5 [facility] Comment on above: Order Comment: Items in this order include: Basic Metabolic Panel , Iron and TIBC, Hepatic Panel, Ferritin, Free T4, TSH, B12/Folate, Vit D 25 [place] (Total), CBC with differential, HgbA1C, Urine, Random, Albumin/Crea , , , , , Testing Performed By: [facility] [address] [place] [address] [address] [address] Irma Shahid, Retail Marketing Manager Performed By: #### C 406, C3763, C1573, C80, C400, C408, C409, C136, C48, C45, C215 #### [facility] [address] [place] [address] [address] [place] [address] Lymphocytes/100 WBC (Bld) 13.6 % Low 14.0-46.0 [facility] Comment on above: Order Comment: Items in this order include: Basic Metabolic Panel , Iron and TIBC, Hepatic Panel, Ferritin, Free T4, TSH, B12/Folate, Vit D 25 [place] (Total), CBC with differential, HgbA1C, Urine, Random, Albumin/Crea , , , , , Testing Performed By: [facility] [address] [place] [address]. [place] [address] Dr. Irma Shahid, Retail Marketing Manager Performed By: #### C 406, C3763, C1573, C80, C400, C408, C409, C136, C48, C45, C215 #### [facility] [address] [place] [address] [address] [place] [address] MCH (RBC) [Entitic mass] 31.3 pg High 27.0-31.0 [facility] Comment on above: Order Comment: Items in this order include: Basic Metabolic Panel , Iron and TIBC, Hepatic Panel, Ferritin, Free T4, TSH, B12/Folate, Vit D 25 [place] (Total), CBC with differential, HgbA1C, Urine, Random, Albumin/Crea , , , , , Testing Performed By: [facility] [address] [place] [address] Dr. Irma Shahid, Retail Marketing Manager Performed By: #### C 406, C3763, C1573, C80, C400, C408, C409, C136, C48, C45, C215 #### [facility] [address] [place] [address] [address] [place] [address] MCHC (RBC) [Mass/Vol] 33.1 g/dL Normal 32.0-36.0 [facility] Comment on above: Order Comment: Items in this order include: Basic Metabolic Panel , Iron and TIBC, Hepatic Panel, Ferritin, Free T4, TSH, B12/Folate, Vit D 25 [place] (Total), CBC with differential, HgbA1C, Urine, Random, Albumin/Crea , , , , , Testing Performed By: [facility] [address] [place] [address] Dr. Irma Shahid, Retail Marketing Manager Performed By: #### C 406, C3763, C1573, C80, C400, C408, C409, C136, C48, C45, C215 #### [facility], [facility]. [address] [place] [address] [address] [place] [address] MCV (RBC) [Entitic vol] 94.6 fL Normal 78.0-100.0 [facility] Comment on above: Order Comment: Items in this order include: Basic Metabolic Panel , Iron and TIBC, Hepatic Panel, Ferritin, Free T4, TSH, B12/Folate, Vit D 25 [place] (Total), CBC with differential, HgbA1C, Urine, Random, Albumin/Crea , , , , , Testing Performed By: [facility] [address] [place] [address] Dr. Irma Shahid, Retail Marketing Manager Performed By: #### C 406, C3763, C1573, C80, C400, C408, C409, C136, C48, C45, C215 #### [facility] [address] [facility] [address] [place] [address] Monocytes (Bld) [#/Vol] 0.8 K CUMM Normal 0.1-1.0 [facility] Comment on above: Order Comment: Items in this order include: Basic Metabolic Panel , Iron and TIBC, Hepatic Panel, Ferritin, Free T4, TSH, B12/Folate, Vit D 25 [place] (Total), CBC with differential, HgbA1C, Urine, Random, Albumin/Crea , , , , , Testing Performed By: [facility] [address] [place] [address]. [place] [address] Dr. Irma Shahid, Retail Marketing Manager Performed By: #### C 406, C3763, C1573, C80, C400, C408, C409, C136, C48, C45, C215 #### [facility] [address] [place] [address] [address] [place] [address] Monocytes/100 WBC (Bld) 8.7 % Normal 4.0-13.0 [facility] Comment on above: Order Comment: Items in this order include: Basic Metabolic Panel , Iron and TIBC, Hepatic Panel, Ferritin, Free T4, TSH, B12/Folate, Vit D 25 [place] (Total), CBC with differential, HgbA1C, Urine, Random, Albumin/Crea , , , , , Testing Performed By: [facility] [address] [place] [address]. [place] [address] Dr. Irma Shahid, Retail Marketing Manager Performed By: #### C 406, C3763, C1573, C80, C400, C408, C409, C136, C48, C45, C215 #### [facility] [address] [facility] [address] [place] [address] Neutrophils (Bld) [#/Vol] 6.8 K CUMM Normal 1.8-7.8 [facility] Comment on above: Order Comment: Items in this order include: Basic Metabolic Panel , Iron and TIBC, Hepatic Panel, Ferritin, Free T4, TSH, B12/Folate, Vit D 25 [place] (Total), CBC with differential, HgbA1C, Urine, Random, Albumin/Crea , , , , , Testing Performed By: [facility] [address] [place] [address] Dr. Irma Shahid, Retail Marketing Manager Performed By: #### C 406, C3763, C1573, C80, C400, C408, C409, C136, C48, C45, C215 #### [facility] [address] [place] [address] [address] [place] [id number] Neutrophils/100 WBC (Bld) 75.5 % High 40.0-74.0 [facility] Comment on above: Order Comment: Items in this order include: Basic Metabolic Panel , Iron and TIBC, Hepatic Panel, Ferritin, Free T4, TSH, B12/Folate, Vit D 25 [place] (Total), CBC with differential, HgbA1C, Urine, Random, Albumin/Crea , , , , , Testing Performed By: [facility] [address] [place] [address] Dr. Irma Shahid, Retail Marketing Manager Performed By: #### C 406, C3763, C1573, C80, C400, C408, C409, C136, C48, C45, C215 #### [facility] [address] [place] [address] [address] [place] [id number] Platelet mean volume (Bld) [Entitic vol] 10.9 fL Normal 8.9-12.6 [facility] Comment on above: Order Comment: Items in this order include: Basic Metabolic Panel , Iron and TIBC, Hepatic Panel, Ferritin, Free T4, TSH, B12/Folate, Vit D 25 [place] (Total), CBC with differential, HgbA1C, Urine, Random, Albumin/Crea , , , , , Testing Performed By: [facility] [address] [place] [address] Dr. Irma Shahid, Retail Marketing Manager Performed By: #### C 406, C3763, C1573, C80, C400, C408, C409, C136, C48, C45, C215 #### [facility] [address] [place] [address] [address] [place] [address] Platelets (Bld) [#/Vol] 283 K CUMM Normal 130-400 [facility] Comment on above: Order Comment: Items in this order include: Basic Metabolic Panel , Iron and TIBC, Hepatic Panel, Ferritin, Free T4, TSH, B12/Folate, Vit D 25 [place] (Total), CBC with differential, HgbA1C, Urine, Random, Albumin/Crea , , , , , Testing Performed By: [facility] [address] [place] [address]. [place] [address] Dr. Irma Shahid, Retail Marketing Manager Performed By: #### C 406, C3763, C1573, C80, C400, C408, C409, C136, C48, C45, C215 #### [facility], [facility]. [address] [place] [address] [address] [place] [address] RBC (Bld) [#/Vol] 4.06 M CUMM Normal 3.80-5.10 [facility] Comment on above: Order Comment: Items in this order include: Basic Metabolic Panel , Iron and TIBC, Hepatic Panel, Ferritin, Free T4, TSH, B12/Folate, Vit D 25 OH (Total), CBC with differential, HgbA1C, Urine, Random, Albumin/Crea , , , , , Testing Performed By: [facility] [address] [place] [address]. [place] [address] Dr. Irma Shahid, Retail Marketing Manager Performed By: #### C 406, C3763, C1573, C80, C400, C408, C409, C136, C48, C45, C215 #### [facility] [address] [place] [address] [address] [place] [address] WBC (Bld) [#/Vol] 9.1 K CUMM Normal 3.8-10.6 [facility] Comment on above: Order Comment: Items in this order include: Basic Metabolic Panel , Iron and TIBC, Hepatic Panel, Ferritin, Free T4, TSH, B12/Folate, Vit D 25 OH (Total), CBC with differential, HgbA1C, Urine, Random, Albumin/Crea , , , , , Testing Performed By: [facility] [facility] [place] [address] Dr. Irma Shahid, Retail Marketing Manager Performed By: #### C 406, C3763, C1573, C80, C400, C408, C409, C136, C48, C45, C215 #### [facility] [facility] [address] [place] [address] Culture, Urineon 02-09-2019 RPT Microbiology results Abnormal [facility] Comment on above: Order Comment: Fasti ng: Unknown Result Comment: Elda l Result: Less than 10,000 CFU/mL of 2 or more organisms present. This usually indicates vaginal, urethral and/or skin contamination. ID and sensitivities will not be performed. Performed By: #### C 80, C400, C408, C141, C48, C45, C119, C120 #### [facility] [facility] [address] [place] [id number] Ferritinon 02-09-2019 Ferritin [Mass/Vol] 103.7 ng/mL Normal 15.0-200.0 [facility] Comment on above: Order Comment: Fasti ng: Unknown Performed By: #### C 80, C400, C408, C141, C48, C45, C119, C120 #### [facility] [facility] [address] [place] [address] Free T4on 02-09-2019 Free T4 [Mass/Vol] 2.0 ng/dL High 0.7-1.8 [facility] Comment on above: Performed By: #### C 80, C400, C408, C141, C48, C45, C119, C120 #### [facility] [place] [address] Hepatic Panelon 02-09-2019 Albumin [Mass/Vol] 4.6 g/dL Normal 3.5-5.0 [facility] Comment on above: Performed By: #### C 80, C400, C408, C141, C48, C45, C119, C120 #### [facility] [address] [place] [address] Alk Phos 57 U/L Normal 23-159 [facility] Comment on above: Performed By: #### C 80, C400, C408, C141, C48, C45, C119, C120 #### [facility] [address] [place] [address] ALT [Catalytic activity/Vol] 27 U/L Normal 10-52 [facility] Comment on above: Performed By: #### C 80, C400, C408, C141, C48, C45, C119, C120 #### [facility] [address] [place] [address] AST [Catalytic activity/Vol] 29 U/L Normal 11-43 [facility] Comment on above: Performed By: #### C 80, C400, C408, C141, C48, C45, C119, C120 #### [facility] [address] [place] [address] Bili (Direct) 0.0 mg/dL Normal 0.0-0.3 [facility] Comment on above: Performed By: #### C 80, C400, C408, C141, C48, C45, C119, C120 #### [facility] [address] [place] [address] Bili (Indirect) 0.3 mg/dL Normal 0.0-1.1 [facility] Comment on above: Performed By: #### C 80, C400, C408, C141, C48, C45, C119, C120 #### [facility] [address] [place] [address] Bilirubin [Mass/Vol] 0.8 mg/dL Normal 0.2-1.3 [facility] Comment on above: Performed By: #### C 80, C400, C408, C141, C48, C45, C119, C120 #### [facility] [address] [place] [address] Protein [Mass/Vol] 6.9 g/dL Normal 6.3-8.4 [facility] Comment on above: Performed By: #### C 80, C400, C408, C141, C48, C45, C119, C120 #### [facility] [address] [facility] [address] [place] [address] [id number] 02-09-2019 HbA1c (Bld) [Mass fraction] 5.3 % Normal <5.7 [facility] Comment on above: Order Comment: Fasti ng: Unknown Result Comment: Refe rence Interval: Normal: below 5.7%. Prediabetes: 5.7% to 6.4%. Diabetes: 6.5% or above. Performed By: #### C 80, C400, C408, C141, C48, C45, C119, C120 #### [facility] [address] [facility] [address] [place] [address] Iron and TIBCon 02-09-2019 % Saturation 36 % Normal 20-55 [facility] Comment on above: Order Comment: Fasti ng: Unknown Performed By: #### C 80, C400, C408, C141, C48, C45, C119, C120 #### [facility] [address] [facility] [address] [place] [address] Iron [Mass/Vol] 97 ug/dL Normal 37-170 [facility] Comment on above: Order Comment: Fasti ng: Unknown Performed By: #### C 80, C400, C408, C141, C48, C45, C119, C120 #### [facility] [address] [place] [address] TIBC 271 ug/dL Normal 265-497 [facility] Comment on above: Order Comment: Fasti ng: Unknown Performed By: #### C 80, C400, C408, C141, C48, C45, C119, C120 #### [facility] [address] [facility] [address] [place] [address] TSHon 02-09-2019 TSH Qn 1.54 MIU/mL Normal 0.50-6.00 [facility] Comment on above: Order Comment: Fasti ng: Unknown Performed By: #### C 80, C400, C408, C141, C48, C45, C119, C120 #### [facility] [address] [facility] [address] [place] [address] Urine, Random, Albumin/Creao n 02-09-2019 Albumin DL <= 20 mg/L (U) [Mass/Vol] 2.6 mg/dL High 0.0-1.6 [facility] Comment on above: Order Comment: Fasti ng: Unknown Performed By: #### C 80, C400, C408, C141, C48, C45, C119, C120 #### [facility] [address] [facility] [address] [place] [address] Creatinine (U) [Mass/Vol] 179.0 mg/dL Normal 28.0-217.0 [facility] Comment on above: Order Comment: Fasti ng: Unknown Performed By: #### C 80, C400, C408, C141, C48, C45, C119, C120 #### [facility] [address] [facility] [address] [place] [address] Urine Microalb/ Creat Ratio 14.5 mcg/mg creat [...] C408, C141, C48, C45, C119, C120 #### [facility] [address] [facility] [address] [place] [address] Vit D 25 OH (Total)on 2018 Vit D 25 [place] (Total) 34.3 ng/ml Normal 31.0-100.0 [facility] Comment on above: Order Comment: Fasti ng: Unknown Result Comment: Defi ciency <10 ng/ml Insufficiency 10-30 ng/ml Sufficiency 31-100 ng/ml Toxicity >100 ng/ml Performed By: #### C 80, C400, C408, C141, C48, C45, C119, C120 #### [facility] [address] [facility] [address] [place] [address] UT Mammo Digital Screening b ilat (NB)on 10-06-2018 UT Mammo Digital Screening bilat (NB) EXAMINATION TYPE: UT Mammo Digital Screening bilat (NB) DATE OF EXAM : 10/06/2018 2:34 PM PATIENT HISTORY: Menarche at age 14. Patient has no children. Postmenopausal. Maternal aunt had breast cancer at or over age 50. PRIOR STUDIES: 03/30/2007, 03/02/2009, 12/04/2010, 10/05/2012, 07/10/2015 REASON FOR STUDY: Breast Screening. TECHNIQUE: Digital mammography views were obtained. Computer-aided detection utilizing R2CAD reader has been performed. BREAST COMPOSITION: The breast tissue is almost entirely fatty FINDINGS: There are no suspicious abnormalities. There has been no significant interval change. IMPRESSION: No mammographic evidence for malignancy. BI-RADS Code: 1-Negative RECOMMENDATION: 1. Screening Mammogram in 1 year Paolo De Jesus thanks you for the opportunity to care for your patient. Workstation ID: [id number] FINAL REPORT Dictated By: Becka Valentine MD 10/06/2018 14:45 Assigned Physician: Becka Valentine MD Reviewed and Electronically Signed By: Becka Valentine MD 10/06/2018 14:45 Transcribed by: PIERRE 10/06/2018 14:45 Technologist: LRS Normal [facility] XR Bone Density DXA Axial Sk esteban 10-06-2018 DXA Skeletal system Views for bone density == Bone Density Report == Name: DEBRA RODRIGUEZ Age: 77 Sex: Female Ethnicity: White Date of : 1940 -- Indication: postmenopausal osteoporosis; height loss; inflammatory bowel disease; hysterectomy; Referring Provider: NIA ALCARAZ Study: Bone densitometry was performed. Exam Date: October 06, 2018 Accession number: [id number] Bone Density: -- Region BMD T-score Z-score [...] cause or contribute to bone loss. The [place] [employer] (AACE) and National [...] 10/08/2018 08:25 10/08/2018 08:21 Technologist: JONAS Golden [facility] ECG 12-LEADon 09-29-2018 Atrial Rate [facility] [place] [facility] P-R Interval [facility] Q-T Interval [facility] Q-T Interval (corrected) [facility] QRS Duration [facility] QTC Calculation (Bezet) [facility] R [place] [facility] T [place] [facility] Ventricular Rate [facility] Basic Metabolic Panelon 06-25 Anion gap [Moles/Vol] 8.50 mmol/L Normal 8.00-16.00 [facility] Comment on above: Order Comment: Fasti ng: Unknown Performed By: #### C 80, C400, C408, C141, C48, C45, C119, C120 #### [facility] [address] [facility] [address] [place] [address] B/C Ratio 15.0 Ratio Normal [facility] Comment on above: Order Comment: Fasti ng: Unknown Performed By: #### C 80, C400, C408, C141, C48, C45, C119, C120 #### [facility] [address] [facility] [address] [facility] [address] [place] [address] Calcium [Mass/Vol] 9.9 mg/dL Normal 8.5-10.5 [facility] Comment on above: Order Comment: Fasti ng: Unknown Performed By: #### C 80, C400, C408, C141, C48, C45, C119, C120 #### [facility] [address] [facility] [place] [address] Chloride [Moles/Vol] 102 mmol/L Normal 98-107 [facility] Comment on above: Order Comment: Fasti ng: Unknown Performed By: #### C 80, C400, C408, C141, C48, C45, C119, C120 #### [facility] [address] [facility] [place] [address] CO2 [Moles/Vol] 27.5 mmol/L Normal 22.0-30.0 [facility] Comment on above: Order Comment: Fasti ng: Unknown Performed By: #### C 80, C400, C408, C141, C48, C45, C119, C120 #### [facility] [address] [facility] [address] [place] [address] Creatinine [Mass/Vol] 1.0 mg/dL Normal 0.1-1.2 [facility] Comment on above: Order Comment: Fasti ng: Unknown Performed By: #### C 80, C400, C408, C141, C48, C45, C119, C120 #### [facility] [address] [facility] [facility] [address] [place] [address] GFR/1.73 sq M.predicted MDRD (S/P/Bld) [Vol rate/Area] 54 mL/min per 1.73 Low >60 [facility] Comment on above: Order Comment: Fasti ng: Unknown Result Comment: The GFR estimate is not adjusted for race. If the patient's race is -[place], the GFR estimate must be multiplied by a factor of 1.21. Performed By: #### C 80, C400, C408, C141, C48, C45, C119, C120 #### [facility] [facility] [place] [address] Glucose [Mass/Vol] 91 mg/dL Normal 74-100 [facility] Comment on above: Order Comment: Fasti ng: Unknown Performed By: #### C 80, C400, C408, C141, C48, C45, C119, C120 #### [facility] [address] [place] [address] [place] [address] Potassium [Moles/Vol] 3.8 mmol/L Normal 3.5-5.3 [facility] Comment on above: Order Comment: Fasti ng: Unknown Performed By: #### C 80, C400, C408, C141, C48, C45, C119, C120 #### [facility] [address] [place] [address] [place] [address] Sodium [Moles/Vol] 138 mmol/L Normal 135-145 [facility] Comment on above: Order Comment: Fasti ng: Unknown Performed By: #### C 80, C400, C408, C141, C48, C45, C119, C120 #### [facility] [facility] [place] [address] Urea nitrogen [Mass/Vol] 15 mg/dL Normal 6-22 [facility] Comment on above: Order Comment: Fasti ng: Unknown Performed By: #### C 80, C400, C408, C141, C48, C45, C119, C120 #### [facility] [address] [place] [address] [place] [address] Direct LDLon 07-07-2018 Cholesterol in LDL [Mass/Vol] [...] C408, C141, C48, C45, C119, C120 #### [facility] [address] [facility] [address] [place] [address] Free T4on 07-07-2018 Free T4 [Mass/Vol] 1.5 ng/dL Normal 0.7-1.8 [facility] Comment on above: Order Comment: Items in this order include: Free T4, Direct LDL , Urine, Random, Albumin/Crea , HDL, TSH, Triglyceride, Basic Metabolic Panel , Hepatic Panel, , Fasting: Unknown Performed By: #### C 80, C400, C408, C141, C48, C45, C119, C120 #### [facility] [address] [facility] [facility] [address] [place] [address] HDLon 07-07-2018 Cholesterol in HDL [Mass/Vol] 109 mg/dL Normal >50 [facility] Comment on above: Order Comment: Items in this order include: Free T4, Direct LDL , Urine, Random, Albumin/Crea , HDL, TSH, Triglyceride, Basic Metabolic Panel , Hepatic Panel, , Fasting: Unknown Performed By: #### C 80, C400, C408, C141, C48, C45, C119, C120 #### [facility] [address] [facility] [address] [place] [address] Hepatic Panelon 07-07-2018 Albumin [Mass/Vol] 4.9 g/dL Normal 3.5-5.0 [facility] Comment on above: Order Comment: Fasti ng: Unknown Performed By: #### C 80, C400, C408, C141, C48, C45, C119, C120 #### [facility] [address] [facility] [address] [place] [address] Alk Phos 79 U/L Normal 23-159 [facility] Comment on above: Order Comment: Fasti ng: Unknown Performed By: #### C 80, C400, C408, C141, C48, C45, C119, C120 #### [facility] [address] [place] [address] ALT [Catalytic activity/Vol] 21 U/L Normal 10-52 [facility] Comment on above: Order Comment: Fasti ng: Unknown Performed By: #### C 80, C400, C408, C141, C48, C45, C119, C120 #### [facility] [address] [place] [address] AST [Catalytic activity/Vol] 24 U/L Normal 11-43 [facility] Comment on above: Order Comment: Fasti ng: Unknown Performed By: #### C 80, C400, C408, C141, C48, C45, C119, C120 #### [facility] [address] [place] [address] Bili (Direct) 0.0 mg/dL Normal 0.0-0.3 [facility] Comment on above: Order Comment: Fasti ng: Unknown Performed By: #### C 80, C400, C408, C141, C48, C45, C119, C120 #### [facility] [address] [place] [address] Bili (Indirect) 0.3 mg/dL Normal 0.0-1.1 [facility] Comment on above: Order Comment: Fasti ng: Unknown Performed By: #### C 80, C400, C408, C141, C48, C45, C119, C120 #### [facility] [address] [place] [address] Bilirubin [Mass/Vol] 1.0 mg/dL Normal 0.2-1.3 [facility] Comment on above: Order Comment: Fasti ng: Unknown Performed By: #### C 80, C400, C408, C141, C48, C45, C119, C120 #### [facility] [address] [facility] [facility] [address] [place] [address] Protein [Mass/Vol] 7.5 g/dL Normal 6.3-8.4 [facility] Comment on above: Order Comment: Fasti ng: Unknown Performed By: #### C 80, C400, C408, C141, C48, C45, C119, C120 #### [facility] [address] [facility] [place] [address] TSHon 07-07-2018 TSH Qn 5.11 MIU/mL Normal 0.50-6.00 [facility] Comment on above: Order Comment: Items in this order include: Free T4, Direct LDL , Urine, Random, Albumin/Crea , HDL, TSH, Triglyceride, Basic Metabolic Panel , Hepatic Panel, , Fasting: Unknown Performed By: #### C 80, C400, C408, C141, C48, C45, C119, C120 #### [facility] [address] [facility] [place] [address] Triglycerideon 07-07-2018 CO2 [Moles/Vol] 107 mg/dL Normal <150 [facility] Comment on above: Order Comment: Fasti ng: Unknown Performed By: #### C 80, C400, C408, C141, C48, C45, C119, C120 #### [facility] [address] [facility] [address] [place] [address] Urine, Random, Albumin/Creao n 07-07-2018 Albumin DL <= 20 mg/L (U) [Mass/Vol] 11.7 mg/dL High 0.0-1.6 [facility] Comment on above: Order Comment: Items in this order include: Free T4, Direct LDL , Urine, Random, Albumin/Crea , HDL, TSH, Triglyceride, Basic Metabolic Panel , Hepatic Panel, , Fasting: Unknown Performed By: #### C 80, C400, C408, C141, C48, C45, C119, C120 #### [facility] [address] [facility] [address] [place] [address] Creatinine (U) [Mass/Vol] 95.2 mg/dL Normal 28.0-217.0 [facility] Comment on above: Order Comment: Items in this order include: Free T4, Direct LDL , Urine, Random, Albumin/Crea , HDL, TSH, Triglyceride, Basic Metabolic Panel , Hepatic Panel, , Fasting: Unknown Performed By: #### C 80, C400, C408, C141, C48, C45, C119, C120 #### [facility] [address] [facility] [address] [place] [address] Urine Microalb/ Creat Ratio 122.9 mcg/mg creat High 0.0-29.9 [facility] Comment on above: Order Comment: Items in [...] C408, C141, C48, C45, C119, C120 #### [facility] [address] [facility] [address] [place] [address] CBC WITH AUTO DIFFERENTIALon 07-02-2018 Basophils #/vol (Bld) 0.04 10*3/uL [facility] Basophils/100 WBC (Bld) 0.5 % [facility] Eosinophils #/vol (Bld) 0.11 10*3/uL [facility] Eosinophils/100 WBC (Bld) 1.4 % [facility] Erythrocyte distribution width Entitic volume (RBC) 15.1 % High 11.6 - 14.8 % [facility] Hematocrit Volume Fraction (Bld) 38.0 % 36 - 46 % [facility] Hemoglobin mass conc (Bld) 12.6 g/dL 12 - 16 g/dL [facility] Immature granulocytes #/vol (Bld) 0.06 10*3/uL [facility] Immature granulocytes/100 WBC (Bld) 0.80 % [facility] Comment on above: The IG parameter is the percentage of metamyelocytes, myelocytes, and promyelocytes. Interpretation and review of laboratory results Abnormal [facility] Lymphocytes #/vol (Bld) 0.69 10*3/uL Low [facility] Lymphocytes/100 WBC (Bld) 8.7 % [facility] MCH Entitic mass (RBC) 32.4 pg 26 - 34 pg [facility] MCHC mass conc (RBC) 33.2 g/dL 31 - 37 g/dL [facility] MCV Entitic volume (RBC) 97.7 fL 80 - 100 fL [facility] Monocytes #/vol (Bld) 0.74 10*3/uL [facility] Monocytes/100 WBC (Bld) 9.3 % [facility] Neutrophils #/vol (Bld) 6.28 10*3/uL [facility] Neutrophils/100 WBC (Bld) 79.3 % [facility] Nucleated RBC #/vol (Bld) 0.00 10*3/uL [facility] Nucleated RBC/100 WBC Ratio (Bld) 0.0 % [facility] Platelet mean volume Entitic volume (Bld) 10.8 fL 9 - 15.5 fL [facility] Platelets #/vol (Bld) 216 10*3/uL [facility] RBC #/vol (Bld) 3.89 10*6/uL Low [facility] WBC #/vol (Bld) 7.92 10*3/uL [facility] Chem 7on 07-02-2018 Anion gap molar conc 16 mmol/L 10 - 20 mmol/L [facility] Chloride molar conc 103 mmol/L 98 - 108 mmol/L [facility] Creatinine mass conc 1.12 mg/dL 0.6 - 1.2 mg/dL [facility] GFR/1.73 sq M predicted among non-blacks MDRD vol rate/area (S/P/Bld) The eGFR should be used for monitoring renal function only and not for medication dosing. [facility] GFR/1.73 sq M.predicted CKD-EPI vol rate/area (S/P/Bld) 47 Low >=60 mL/min/1.73 m2 [facility] Glucose mass conc 117 mg/dL High 65 - 99 mg/dL [facility] HCO3 molar conc 27 mmol/L 21 - 32 mmol/L [facility] Interpretation and review of laboratory results Abnormal [facility] Potassium molar conc 4.3 mmol/L 3.5 - 5.1 mmol/L [facility] Sodium molar conc 142 mmol/L 135 - 145 mmol/L [facility] Urea nitrogen mass conc 24 mg/dL 8 - 25 mg/dL [facility] Urea nitrogen/Creatinine mass ratio 21.4 mg/mg High [facility] Otheron 07-02-2018 Extra Tube Hold for add-ons. [facility] Comment on above: Auto resulted. URINALYSISon 07-02-2018 Bacteria Auto Ql (U) Rare Abnormal None Seen /hpf [facility] Bilirubin Ql (U) Negative Negative [facility] th Clarity Refractometry automated Nom (U) Clear Clear [facility] Color Nom (U) Yellow Colorless, Yellow [facility] Epithelial cells.squamous Auto #/area (Urine sed) <1 [facility] Glucose Automated test strip mass conc (U) Negative Negative mg/dL [facility] Hemoglobin Automated test strip Ql (U) Negative Negative [facility] Hyaline casts Auto #/area (Urine sed) 3-5 Abnormal 0 - 2 /lpf [facility] Interpretation and review of laboratory results Abnormal [facility] Ketones mass conc (U) Negative Negative mg/dL [facility] Leukocyte esterase Automated test strip Ql (U) Negative Negative [facility] Mucus Auto #/area (Urine sed) Rare None Seen, Rare /lpf [facility] Nitrite Automated test strip Ql (U) Negative Negative [facility] pH (U) 6.0 [pH] [facility] Protein mass conc (U) Negative Negative mg/dL [facility] RBC Auto #/area (Urine sed) <1 [facility] Specific gravity Relative Density (U) 1.010 [facility] Urobilinogen mass conc (U) <2.0 <2.0 mg/dL [facility] WBC Auto #/area (Urine sed) <1 [facility] Microscopic examination is performed on all urinalysis samples and only positive findings are reported. The test for blood on the chemical analytic portion of urinalysis may also be positive due to hemoglobinuria and myoglobinuria and if red blood cells are present they are quantified by microscopic examination. [facility] Hepatic Function Panelon Alanine aminotransferase (ALT) 10 U/L Invalid Interpretation Code 0 - 40 U/L [facility] Albumin 4.4 g/dL Invalid Interpretation Code 3.2 - 5.2 g/dL [facility] Alkaline phosphatase (ALP) 58 U/L Invalid Interpretation Code 40 - 150 U/L [facility] Aspartate aminotransferase (AST) 15 U/L Invalid Interpretation Code 0 - 45 U/L [facility] Bilirubin (conjugated) 0.2 mg/dL Invalid Interpretation Code 0 - 0.4 mg/dL [facility] Bilirubin (total) 0.7 mg/dL Invalid Interpretation Code 0 - 1.3 mg/dL [facility] Protein 6.6 g/dL Invalid Interpretation Code 6 - 8 g/dL [facility] TSH with Reflex Free T4on Interpretation and review of laboratory results Normal Invalid Interpretation Code [facility] Thyroid stimulating hormone (TSH) 5.00 mcIU/mL Invalid Interpretation Code 0.32 - 5.00 [facility] XR Chest AP/PA and LATon XR Chest AP/PA and LAT 1. No acute cardiopulmonary process. 2. Stable hiatal hernia. 3. 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 [employer] Workstation ID: [id number] Invalid Interpretation Code [employer] XR Chest AP/PA and LAT EXAMINATION: 2-VIEW CHEST HISTORY: ORDERING SYSTEM PROVIDED HISTORY: residential current use of 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 drug, TECHNOLOGIST PROVIDED HISTORY: Reason for exam: Class III Monitoring Illness/Other Cancer History: n Surgery, RadiationHistory: n Encounter Type: Subsequent/Follow-up Additional signs and symptoms: n ORDERING SYSTEM PROVIDED DIAGNOSIS CODES: Z79.899 residential current use of 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 drug COMPARISON: Chest [...] right rotator cuff surgery. Invalid Interpretation Code [employer] XR Chest AP/PA and LAT Interface, Rad In Six Degrees of Dataq - 07/08/2017 6:04 PM EST EXAMINATION: 2-VIEW CHEST HISTORY: ORDERING SYSTEM PROVIDED HISTORY: residential current use of 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 drug, TECHNOLOGIST PROVIDED [...] and eventration of the right anterior hemidiaphragm. [employer] Workstation ID: [id number] Invalid Interpretation Code [facility] [facility] ECG 12 Leadon 04-08-2017 Atrial Rate Invalid Interpretation Code [facility] Phone: P [place] Invalid Interpretation Code [facility] Phone: P-R Interval Invalid Interpretation Code [facility] Phone: Q-T Interval Invalid Interpretation Code [facility] Phone: Q-T Interval (corrected) Invalid Interpretation Code [facility] [email or web address] Phone: QRS Duration Invalid Interpretation Code [facility] Phone: QTC Calculation (Bezet) Invalid Interpretation Code [facility] Phone: R [place] Invalid Interpretation Code [facility] [email or web address] Phone: T [place] Invalid Interpretation Code [facility] [email or web address] Phone: Ventricular Rate Invalid Interpretation Code [facility] [email or web address] Phone: Hepatic Function Panelon Alanine aminotransferase (ALT) 9 U/L Invalid Interpretation Code 0 - 40 U/L [facility] Albumin 4.3 g/dL Invalid Interpretation Code 3.2 - 5.2 g/dL [facility] Alkaline phosphatase (ALP) 63 U/L Invalid Interpretation Code 40 - 150 U/L [facility] Aspartate aminotransferase (AST) 13 U/L Invalid Interpretation Code 0 - 45 U/L [facility] Bilirubin (conjugated) 0.2 mg/dL Invalid Interpretation Code 0 - 0.4 mg/dL [facility] Bilirubin (total) 0.4 mg/dL Invalid Interpretation Code 0 - 1.3 mg/dL [facility] Interpretation and review of laboratory results Normal Invalid Interpretation Code [facility] Protein 6.5 g/dL Invalid Interpretation Code 6 - 8 g/dL [facility] T4, Freeon 04-08-2017 Thyroxine (T4) free 1.5 ng/dL Invalid Interpretation Code 0.7 - 1.7 ng/dL [facility] TSH with Reflex Free T4on Interpretation and review of laboratory results Abnormal Invalid Interpretation Code [facility] Thyroid stimulating hormone (TSH) 8.89 mcIU/mL High 0.32 - 5.00 [facility] Vital Signs Date Time Vital Sign Value Performing Clinician Facility 10-01-2023 14:35-0400 Body height 149.86 cm [facility] 10-01-2023 14:35-0400 Body mass index (BMI) [Ratio] 32.9 kg/m2 [facility] 10-01-2023 14:35-0400 Body weight 73.93 kg [facility] 10-01-2023 14:35-0400 Diastolic blood pressure 69 mm[Hg] [facility] 10-01-2023 14:35-0400 Heart rate 94 /min [facility] 10-01-2023 14:35-0400 Systolic blood pressure 102 mm[Hg] [facility] 02-17-2023 15:00-0400 Body height 149.86 cm Boyd Bustamante Other [facility] Other 02-17-2023 15:00-0400 Body mass index (BMI) [Ratio] 31.71 kg/m2 Boyd Bustamante Other [facility] Other 02-17-2023 15:00-0400 Body weight 71.22 kg Boyd Bustamante Other [facility] Other 02-17-2023 15:00-0400 Diastolic blood pressure 70 mm[Hg] Boyd Bustamante Other [facility] Other 02-17-2023 15:00-0400 SaO2% (BldA) [Mass fraction] 97 % Boyd Bustamante Other [facility] Other 02-17-2023 15:00-0400 Systolic blood pressure 90 mm[Hg] Boyd Bustamante Other [facility] Other 07-01-2022 15:30-0500 Body height 149.86 cm Boyd Bustamante Other [facility] Other 07-01-2022 15:30-0500 Body mass index (BMI) [Ratio] 32.92 kg/m2 Boyd Bustamante Other [facility] Other 07-01-2022 15:30-0500 Body weight 73.94 kg Boyd Bustamante Other [facility] Other 07-01-2022 15:30-0500 Diastolic blood pressure 72 mm[Hg] Boyd Bustamante Other [facility] Other 07-01-2022 15:30-0500 SaO2% (BldA) [Mass fraction] 98 % Boyd Bustamante Other [facility] Other 07-01-2022 15:30-0500 Systolic blood pressure 126 mm[Hg] Boyd Bustamante Other [facility] Other 01-06-2020 10:18-0400 BMI (Body Mass Index) 27.5 kg/m2 [facility] 01-06-2020 10:18-0400 Body weight 72.67 kg [facility] 01-06-2020 10:18-0400 BP Diastolic 68 mm[Hg] [facility] 01-06-2020 10:18-0400 BP Systolic 116 mm[Hg] [facility] 01-06-2020 10:18-0400 Height 162.6 cm [facility] 01-06-2020 10:18-0400 Pulse (Heart Rate) 57 /min [facility] 09-29-2018 14:07-0400 BMI (Body Mass Index) 32.27 kg/m2 [facility] 09-29-2018 14:07-0400 BP Diastolic 73 mm[Hg] [facility] 09-29-2018 14:07-0400 BP Systolic 122 mm[Hg] [facility] 09-29-2018 14:07-0400 Height 162.6 cm [facility] 09-29-2018 14:07-0400 Pulse (Heart Rate) 63 /min [facility] 09-29-2018 14:07-0400 Weight 85.28 kg Leon[facility] 07-02-2018 09:02-0500 BP Diastolic 56 mm[Hg[facility] 09:02-0500 BP Systolic 127 mm[Hg] [facility] 07-02-2018 09:02-0500 Pulse (Heart Rate) 70 /min Tito [facility] 07-02-2018 09:02-0500 Pulse Oximetry 96 % Tito [facility] 07-02-2018 09:02-0500 Respiratory Rate 16 /min Tito [facility] 07-02-2018 05:27-0500 BMI (Body Mass Index) 36.22 kg/m2 [facility] 07-02-2018 05:27-0500 Body Temperature 98.6 [degF] [facility] 07-02-2018 05:27-0500 Height 162.6 cm [facility] 07-02-2018 05:27-0500 Weight 95.71 kg Tito Snell [facility] 04-08-2017 11:19-0500 BMI (Body Mass Index) 35.53 kg/m2 Leonora Saunders [facility] Work Phone: 04-08-2017 11:19-0500 BP Diastolic 74 mm[Hg] Leonora Saunders [facility] Work Phone: 04-08-2017 11:19-0500 BP Systolic 120 mm[Hg] Leonora Saunders [facility] Work Phone: 04-08-2017 11:19-0500 Height 162.6 cm Leonora Saunders [facility] Work Phone: 04-08-2017 11:19-0500 Pulse (Heart Rate) 66 /min Leonora Saunders [facility] Work Phone: 04-08-2017 11:19-0500 Weight 93.89 kg Leonora Saunders [facility] Work Phone: Encounters Encounter Date Encounter Type Care Provider Facility Start: 02-11-2024 End: 02-11-2024 ambulatory UZIEL OCONNOR Not Available Start: 01-20-2024 End: 01-20-2024 ambulatory [facility] Start: 01-13-2024 ambulatory [facility] Start: 01-13-2024 ambulatory [facility] Start: 01-13-2024 End: 01-13-2024 ambulatory [facility] Start: 01-06-2024 End: 01-06-2024 ambulatory MOISES JAMES Not Available Start: 12-08-2023 End: 12-08-2023 ambulatory [facility] Start: 12-03-2023 End: 12-03-2023 ambulatory UZIEL OCONNOR Not Available Start: 10-01-2023 End: 10-01-2023 ambulatory [facility] Work Phone: Start: 10-01-2023 End: 10-01-2023 Patient encounter procedure [facility] Physician [facility] Work Phone: Start: 09-29-2023 Non-patient / Non-visit [facility] Physician [facility] Work Phone: Start: 09-17-2023 End: 09-17-2023 ambulatory JUS REVELES [facility] Start: 08-19-2023 ambulatory NIA ALCARAZ [facility] Start: 08-19-2023 ambulatory NIA ALCARAZ [facility] Start: 08-19-2023 ambulatory NIA ALCARAZ [facility] Start: 07-22-2023 ambulatory [facility] Start: 07-22-2023 End: 07-22-2023 ambulatory [facility] Start: 07-17-2023 Non-patient / Non-visit [facility] Physician [facility] Work Phone: Start: 07-14-2023 End: 07-14-2023 ambulatory [facility] Start: 06-16-2023 End: 06-16-2023 ambulatory [facility] Start: 05-26-2023 End: 05-26-2023 ambulatory [facility] Start: 05-11-2023 ambulatory [facility] Start: 05-11-2023 End: 05-11-2023 ambulatory [facility] Start: 04-23-2023 End: 04-23-2023 ambulatory ALEC SALEEM [facility] Start: 04-11-2023 Evaluation and manag ement of inpatient JOVANNY NUÑEZ [facility] Start: 04-10-2023 End: 04-11-2023 Evaluation and management of inpatient BECKY LOPEZ [facility] Start: 03-27-2023 End: 03-27-2023 ambulatory GRACIA [facility] Start: 02-26-2023 End: 02-26-2023 ambulatory GROVER KANG [facility] Start: 02-17-2023 Office outpatient vi sit 15 minutes Boyd Bustamante [facility] Start: 02-17-2023 End: 02-17-2023 ambulatory PARAM QUIROGA [facility] Other Start: 01-21-2023 End: 01-21-2023 ambulatory Boyd Bustamante Other [facility] Other Start: 01-21-2023 Telephone encounter Boyd Bustamante [facility] Start: 01-19-2023 End: 01-19-2023 ambulatory Boyd Bustamante Other [facility] Other Start: 01-19-2023 Telephone encounter Boyd Bustamante [facility] Start: 11-28-2022 End: 11-28-2022 ambulatory Boyd Bustamante Other [facility] Other Start: 11-28-2022 Telephone encounter Boyd Bustamante [facility] Start: 10-22-2022 End: 10-22-2022 ambulatory Boyd Bustamante Other [facility] Other Start: 10-22-2022 Telephone encounter Boyd Bustamante [facility] Start: 10-21-2022 End: 10-21-2022 ambulatory Boyd Bustamante Other [facility] Other Start: 10-21-2022 Telephone encounter Boyd Bustamante [facility] Start: 09-24-2022 End: 09-25-[address] BOYD BUSTAMANTE Facility:[facility] Start: 08-19-2022 End: 08-19-2022 ambulatory Boyd Bustamante Other [facility] Other Start: 08-19-2022 Telephone encounter Boyd Bustamante [employer] Start: 08-12-2022 End: 08-13-[address] BOYD BUSTAMANTE [facility] Other Start: 08-12-2022 Telephone encounter Boyd Bustamante [facility] Start: 07-24-2022 End: 07-25-[address] BOYD BUSTAMANTE Facility:[facility] Start: 07-17-[address] BOYD BUSTAMANTE Facil ity:[facility] Start: 07-02-2022 End: 07-02-2022 ambulatory Boyd Bustamante Other [facility] Other Start: 07-02-2022 Telephone encounter Boyd Bustamante [facility] Start: 07-01-2022 End: 07-01-2022 ambulatory Body Bustamante Other [facility] Other Start: 07-01-2022 Patient encounter procedure Boyd Bustamante [facility] Start: 09-18-2020 Refill Leonora Saunders MD Work Phone: [facility] Comment on above: Medication Refill Start: 06-14-2020 End: 06-14-2020 Orders Only Tessy Limon Jason Work Phone: [facility] Start: 02-03-2020 End: 02-07-2020 Patient encounter procedure NIA KANG LISSA [facility] Start: 01-09-2020 End: 01-09-2020 Patient encounter procedure Shelia Randajazzfortino Work Phone: [facility] Start: 01-06-2020 End: 01-10-2020 Patient encounter procedure LEONORA SAUNDERS [facility] Start: 01-06-2020 End: 01-07-2020 Patient encounter procedure LEONORA SAUNDERS [facility] Start: 01-06-2020 End: 01-06-2020 Office outpatient visit 15 minutes Leonora Saunders Work Phone: [facility] Comment on above: PAF (paroxysmal atri al fibrillation) (HCC) (Primary Dx); residential current use of 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 drug; 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, unspecified type Start: 01-06-2020 End: 01-06-2020 Subsequent hospital visit by physician Leonora Saunders Work Phone: [facility] Comment on above: residential current us e of 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 drug; PAF (paroxysmal atrial fibrillation) (HCC) Start: 09-06-2019 End: 09-06-2019 Patient encounter procedure Leonora Saunders Work Phone: [facility] Start: 04-19-2019 End: 04-19-2019 Patient encounter procedure Leonora Ministerio Saunders Work Phone: [facility] Start: 03-09-2019 End: 03-13-2019 Patient encounter procedure NIA ALCARAZ [facility] Start: 03-07-2019 End: 03-07-2019 Patient encounter procedure Leonora Saunders Work Phone: [facility] Start: 09-29-2018 End: 09-29-2018 Office outpatient visit 25 minutes Leonora Saunders Work Phone: [facility] Comment on above: PAF (paroxysmal atri al fibrillation) ([facility]) (Primary Dx); 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, unspecified type; 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 Start: 09-28-2018 End: 09-28-2018 Patient encounter procedure Leoonra Saunders Work Phone: [facility] Start: 08-11-2018 End: 08-11-2018 Patient encounter procedure Leonora Saunders Work Phone: [facility] Start: 07-05-2018 End: 07-05-2018 Patient encounter procedure Leonora Saunders Work Phone: [facility] Start: 07-02-2018 End: 07-02-2018 Evaluation and management of inpatient Tito Snell Work Phone: [facility] Emergency Department Start: 04-09-2018 End: 04-09-2018 Patient encounter procedure Leonora Saunders Work Phone: [facility] Start: 04-05-2018 End: 04-05-2018 Patient encounter Leonora Saunders Work Phone: [facility] Start: 12-30-2017 End: 12-30-2017 Patient encounter Leonora Saunders Work Phone: [facility] Start: 08-11-2017 Patient encounter Leonora Saunders Work Phone: [facility] Start: 07-08-2017 End: 07-08-2017 Ambulatory Leonora Saunders Work Phone: [facility] Draw Site Start: 06-17-2017 Ambulatory Leonora Saunders Work Phone: [facility] Start: 04-08-2017 Office outpatient vi sit 15 minutes Leonora Saunders Work Phone: [facility] Start: 04-08-2017 End: 04-08-2017 Ambulatory Leonora Saunders Work Phone: [facility] Start: 03-24-2017 Ambulatory Leonora Saunders Work Phone: [facility] Start: 03-13-2017 Patient encounter Leonora Joseph janet Saunders Work Phone: [facility] Start: 01-09-2017 End: 01-09-2017 Patient encounter procedure Leonora Saunders Work Phone: [facility] Start: 12-01-2016 End: 12-01-2016 Patient encounter procedure Leonora Saunders Work Phone: [facility] Procedures Date Procedure Procedure Detail Performing Clinician Start: 01-06-2020 12 lead ECG Leonora Saunders Work Phone: Start: 01-06-2020 Standard chest X-ray St even Ministerio Saunders Work Phone: Start: 09-29-2018 12 lead ECG Leonora Saunders Work Phone: Start: 07-02-2018 Urinalysis Tito Snell Work Phone: Start: 07-02-2018 X-ray of chest and abdomen Tito Snell Work Phone: Start: 07-02-2018 Basic metabolic 1998 panel - Serum or Plasma Tito Snell Work Phone: Start: 07-02-2018 Complete blood count with white cell differential, automated Tito Snell Work Phone: Start: 07-02-2018 Complete blood count with white cell differential, manual Tito Taylorer Work Phone: Start: 07-02-2018 HAYWOOD TOP Tito All en Rimer Work Phone: Start: 07-02-2018 LIGHT BLUE TOP Tito Garcia llen Rimer Work Phone: Start: 07-02-2018 LIGHT GREEN TOP Tito James Rimer Work Phone: Start: 07-02-2018 PINK TOP Tito All en Rimer Work Phone: Start: 07-02-2018 RAINBOW DRAW Tito All en Rimer Work Phone: Removal of suture Boyd Bra un Other Removal of suture Boyd Bra un Other Plan of Treatment Date Care Activity Detail Author Start: 05-03-2031 Tetanus vaccination Tetanus: Every 1 0yrs [facility] Start: 01-23-2022 Influenza vaccination Sequenti al Influenza Vaccine (#1) [facility] Start: 01-05-2021 CLASS III : OFFICE VISIT CLASS III : OFFICE VISIT [facility] Start: 08-02-2020 Thyroid stimulating hormone measurement Class III : TSH [facility] Start: 07-08-2020 Alanine aminotransfe rase measurement CLASS III : ALT [facility] Start: 03-09-2020 CLASS III : EKG CLASS III : EKG [facility] Start: 02-10-2020 History and physical examination, annual for health maintenance Wellness Visit [facility] Start: 01-24-2020 Influenza vaccinatio n given Sequential Influenza Vaccine (#1) [facility] Start: 09-30-2019 CLASS III : OFFICE VISIT CLASS III : OFFICE VISIT [facility] Start: 09-28-2019 CLASS III : EKG CLASS III : EKG [facility] Start: 09-08-2019 CLASS III : ALT CLASS III : ALT [facility] Start: 09-08-2019 CLASS III : AST CLASS III : AST [facility] Start: 09-08-2019 CLASS III : TSH CLASS III : TSH [facility] Start: 03-30-2019 CLASS III : ALT CLASS III : ALT [facility] Start: 03-30-2019 CLASS III : AST CLASS III : AST [facility] Start: 03-30-2019 CLASS III : TSH CLASS III : TSH [facility] Start: 03-04-2019 CLASS III : EKG CLASS III : EKG [facility] Start: 01-23-2019 Influenza vaccinatio n given [facility] Start: 09-29-2018 End: 09-29-2018 Appointment [facility] Start: 09-02-2018 CLASS III : ALT CLASS III : ALT [facility] Start: 09-02-2018 CLASS III : AST CLASS III : AST [facility] Start: 09-02-2018 CLASS III : TSH CLASS III : TSH [facility] Start: 07-08-2018 CLASS III : EKG CLASS III : EKG [facility] Start: 04-08-2018 CLASS III : OFFICE VISIT CLASS III : OFFICE VISIT [facility] Work Phone: Start: 01-23-2018 Influenza vaccination [facility] Start: 01-23-2018 Influenza vaccinatio n given SEQUENTIAL INFLUENZA VACCINE (#1) [facility] Start: 01-06-2018 CLASS III : EKG CLASS III : EKG [facility] Work Phone: Start: 01-05-2018 CLASS III : ALT CLASS III : ALT [facility] Start: 01-05-2018 CLASS III : AST CLASS III : AST [facility] Start: 01-05-2018 CLASS III : TSH CLASS III : TSH [facility] Start: 10-06-2017 CLASS III : ALT CLASS III : ALT [facility] Work Phone: Start: 10-06-2017 CLASS III : AST CLASS III : AST [facility] Work Phone: Start: 10-06-2017 CLASS III : TSH CLASS III : TSH [facility] Work Phone: Start: 07-09-2017 CLASS III : ALT CLASS III : ALT [employer] Work Phone: Start: 07-09-2017 CLASS III : AST CLASS III : AST [employer] Work Phone: Start: 07-09-2017 CLASS III : TSH CLASS III : TSH [facility] Phone: Start: 04-04-2017 CLASS III : EKG CLASS III : EKG [facility] Phone: Start: 04-02-2017 CLASS III : OFFICE VISIT CLASS III : OFFICE VISIT [facility] Work Phone: Start: 01-23-2017 Influenza vaccination SEQUENTI AL INFLUENZA VACCINE (#1) [facility] Work Phone: Start: 01-23-2017 SEQUENTIAL INFLUENZA VACCINE (#1) SEQUENTIAL INFLUENZA VACCINE (#1) [facility] Work Phone: Start: 09-30-2016 CLASS III : ALT CLASS III : ALT [facility] Phone: Start: 09-30-2016 CLASS III : AST CLASS III : AST [facility] Phone: Start: 09-30-2016 CLASS III : TSH CLASS III : TSH [facility] Phone: Start: 11-15-2015 Pneumococcal vaccination PNEUM OCOCCAL VACCINE AGE 65+ (2 of 2 - PPSV23) [facility] Start: 11-15-2015 Pneumococcal Vaccine : Age 65+ (2 - PPSV23 if available, else PCV20) Pneumococcal Vaccine: Age 65+ (2 - PPSV23 if available, else PCV20) [facility] Start: 2005 Fall risk assessment [facility] Start: 2005 Pneumococcal vaccination PNEUM OCOCCAL VACCINE AGE 65+ (1 of 2 - PCV13) [facility] Work Phone: Start: 2005 PNEUMOCOCCAL VACCINE AGE 65+ (1 of 2 - PCV13) PNEUMOCOCCAL VACCINE AGE 65+ (1 of 2 - PCV13) [facility] Work Phone: Start: 2000 Zoster vacc, sc ZOSTER VACCINE [facility] Work Phone: Start: 1990 Administration of he rpes zoster vaccine ZOSTER VACCINES (1 of 2) [facility] Start: 1990 ZOSTER VACCINES (1 of 2) ZOSTE R VACCINES (1 of 2) [facility] Start: 12-18-1959 Administration of he rpes zoster vaccine Zoster Vaccines (1 of 2) [facility] Start: 1958 Hepatitis C antibody , confirmatory test Hepatitis C Screening [facility] Start: 1952 Adolescent depressio n screening assessment Depression Screening (PHQ9) [facility] Start: 1952 Depression screening using PHQ-9 (Patient Health Questionnaire 9) score Depression Screening (PHQ-2/9) [facility] Start: 12-18-1943 History and physical examination, annual for health maintenance Wellness Visit [facility] Start: 06-19-1941 COVID-19 Vaccine (#1) COVID-19 Vacci ne (#1) [facility] Start: 1940 DEXA SCAN DEXA SCAN [facility] Work Phone: Start: 1940 Fall risk assessment Falls Risk Asse ssment [facility] Start: 1940 Protein mass conc Mammogram [facility] Start: 1940 Screening mammography Mammogram [facility] Start: 1940 TETANUS EVERY 10 YR TETANUS EVERY 10 YR [facility] Work Phone: Start: 1940 End: 1940 Screening for osteoporosis DEXA SCAN [facility] Start: 1940 End: 1940 Tetanus vaccination [facility] Work Phone: End: 07-02-2018 Bacteria identified Aer cx Nom (Unsp spec) Urine Aerobic Culture Routine Once for 1 Occurrences starting 07/02/2018 until 07/02/2018 [facility] Comment on above: Once for 1 Occurrenc es starting 07/02/2018 until 07/02/2018 Bacteria identified Aer cx Nom (Unsp spec) Urine Aerobic Culture Routine 07/02/2018 8:08 AM EST [facility] [facility] X-ray of chest and abdomen XR Ab domen 2 Views With Chest 1 View STAT 07/02/2018 6:50 AM EST [facility] Payers Date Payer Category Payer Medicare [id number] 2014 Medicare [id number] 2014 Medicare AET[employer] MANAGED [place] DICSEPIDEH AETNA MEDICARE PLAN (PPO) [id number] 2014-Present [id number] 2014 Medicare AETNA MANAGED [place] DICARE AETNA MEDICARE PLAN (PPO) [id number] 2014-Present [phone] [address] [place] [address] [id number] 1959 Medicare [id number] 1940 Unknown [id number] 1940 Unknown [id number] [id number] 1940 Unknown [id number] [id number] 1940 Unknown [id number] [id number] 1940 Unknown [id number] [id number] 1940 Unknown [id number] [id number] 1940 Unknown [id number] [id number] 1940 Unknown [id number] [id number] 1940 Unknown [id number] [id number] 1940 Unknown [id number] [id number] 1940 Unknown [id number] [id number] 1940 Unknown [id number] [id number] 1940 Unknown [id number] Medicare Medicare [id number] Social History Date Type Detail Facility Start: 04-08-2017 End: 01-06-2020 Tobacco smoking status NHIS Former smoker [facility] Work Phone: End: 05-25-1969 History of tobacco use Current smoker [facility] Work Phone: Start: 1940 Sex Assigned At Not on file [facility] [employer] Work Phone: Start: 07-02-2018 End: 01-06-2020 Alcohol intake Current non-drinker of alcohol (finding) [facility] Exposure to SARS-CoV-2 (event) Not sure [facility] Start: 04-08-2017 End: 01-06-2020 Tobacco use and exposure Never used [facility] End: 05-25-1969 History of tobacco use Cigarette Smoker [facility] Sex Assigned At Sex Assigned At Bir [employer] Other Start: 1940 Sex Assigned At Female F [facility] Clinical Notes 09-18-2020 to 01-20-2024 Note Date & Type Note Facility 01-20-2024 Note [place] [facility]rophys[facility] Consult Note Reason for visit: Afib s/p AVN ablation 01/13/24, s/p upgrade to BiV pacemaker 01/13/24 01/20/24 Since last seen she has undergone an AVN ablation and her pacemaker was upgraded to a BiV-pacemaker She is up 3 lbs since last seen. She has increased leg swelling. She had some pain to the incision for a few days, this has since resolved. Denies dyspnea, orthopnea, PND, palpitations, dizziness/LH, syncope. 12/08/23 patient underwent cardioversion on 07/22/2023 and [...] this 02/17/23 HPI: Debra Rodriguez is a 83 y.o. year old with past medical history of htn, GERD, sleep apnea, mitral valve prolapse, A-fib, c-diff, TIA, HLD, it is noted in her H&P per PCP she has been on a medication for afib but it caused her thyroid issues. She had previous seen a order processor and an outlying facility and recently moved here about 2 years ago and has not established with a order processor. She was seen by Gracia SOSA and subsequently started on anticoagulation with Eliquis. previously she had afib ablation with [facility] before 2009 had for unclear reasons was not placed on anticoagulation when he saw her. she got admitted to [facility] ED on 02/06/2023 following a fall. versus attributed to be a mechanical fall as she tripped on the corner curb. no loss of consciousness. CT of the head was negative for any hemorrhage. she had some lacerations which were sutured. She had a recent echocardiogram done which showed cardiomyopathy with a EF of 35 to 40%. [id number] at least 6 for age, gender, hypertension, [...] Intimate Partner Violence: Not At Risk (04/10/2023) [place] Safety & Environment Fear of Current or [...] is ok Sulfa (Sulfonamide Antibiotics) Hives Weight: 73.9kg Visit Vitals BP 113/68 (BP Location: Left arm, Patient Position: Sitting) Pulse 97 Ht 1.626 m (5' 4 ) W (more content not included)... [facility] 01-20-2024 Note Pt is here for a wou nd check. Pt denies chest pain, sob, palpitations. Pt is here for a ablation Review of Systems Cardiovascular: Positive for leg swelling. Neurological: Positive for excessive daytime sleepiness. All other systems reviewed and are negative. [facility] 01-13-2024 Note AV NODE ABLATION & C RT-P (BiV PACEMAKER) UPGRADE PROCEDURE NOTE DATE OF PROCEDURE: 01/13/2024 PERFORMING PHYSICIAN: Dr. Param Quiroga CUSTOMS COMPLIANCE ANALYST: Dr Shaw Monk CONSENT: Patient LOCATION: EP Lab PROCEDURE PERFORMED: 1. AV node ablation. 2. Implantation of Biventricular pacemaker (Biotronik). 3. Explantation of previously implanted pacemaker generator (Biotronik). 4. Coronary sinus venogram. 5. PPM pocket revision. 6. U/S access 7.Conscious sedation 8. Fluroscopy. INDICATIONS: 1. Cardiomyopathy from Afib with RVR 2. Dilated cardiomyopathy 3. Chronic SHF NYHA Class III PROCEDURAL SEDATION: Versed and Fentanyl. Moderate sedation was administered by the sedation nurse under my supervision and noted in the CVL log. Intraprocedural face to face sedation time: 144min. Monitoring: Cardiac telemetry, Blood pressure, continuous pulse oxymetry. FLUROSCOPY: 10.6minutes/ 39 mGy. EBL: 25cc SPECIMEN REMOVED: None PREPARATION: 83year old with past medical history of HTN, GERD, sleep apnea, mitral valve prolapse, A-fib, c-diff, TIA, HLD had previous seen a order processor. She was seen by Gracia SOSA and subsequently started on anticoagulation with Eliquis. Previously she had afib ablation with [facility] before 2009 had for unclear reasons was not placed on anticoagulation when he saw her. She got admitted to [facility] ED on 02/06/2023 following a fall. She had a recent echocardiogram done which showed cardiomyopathy with a EF of 35 to 40%. She had DCCV and her EF improved to 45-50%. She had AF recurrence and so she underwent PPM implant in anticipation for AV node ablation. She presents now for AVN ablation and LV lead implant. PROCEDURAL DETAILS: The patient was brought to the electrophysiology laboratory and continuous electrocardiographic monitoring was instituted. After a procedural pause identifying the patient, the procedure I decided to proceed following administration of antibiotics. Patient was placed in supine position. The right groin was prepped and draped. Using ultrasound guidance, the right femoral vein was identified and noted to be patent and image stored. Venous access was obtained and a short 8F sheath was placed in the right femoral vein. Irrigated 4mm thermoccol ablation catheter was then advanced to the His location. HV was 53s. At this point, I decided to just proceed with AV node ablation. The catheter was advanced to His location. His area was tagged. The catheter was advanced to the His location. I went on to perform ablation at 40watts. The catheter was flexed and ablation was performed leading to a complete heart block with junctional escape at 43bpm. At this time, I decided to stop the ablation. EZ steer catheter was placed in the CS body. The device was re-programmed and thresholds were noted to have unchanged. Sheaths and catheters were removed and hemostasis was achieved. A procedural pause was performed identifying the patient, the precedure to be performed and the site ofimplant. The left chest was prepped and draped in the usual sterile fashion. Preoperative antibiotics IV was administered. Patient was placed in trendelenberg position and ultrasound was used to evaluate the patency of left axillary vein and confirmed with contrast venography. Once it was determined that the vein was patient, I decided to proceed with opening of the pocket. Local infiltration of 1% Lidocaine was performed, and an incision was created in the left upper chest. Dissection was then performed using cautery down to the capsule of the previously implanted device. Single venous access was acquired and therafter the Martin sheath was advanced, and with manipulation, advanced wire into CS body. Martin sheath was advanced into the body. I used an amplatz wire for support. [place] catheter was advanced and venogram was performed. This revealed a good lateral vein and posterior vein. After this, a 90degree inner cannula was utilized and 0.014 wire was passed and traversed into the lateral vein. Over this, a Biotronik straight lead was advanced and placed into the mid LV area. However, when thresholds were checked, except for LV 1, other poles had poor unipolar numbers and 2V capture at LV1. I decided to keep the lead. The inner cannulas were split and at this time, the lead pushed back where Here LV 1 moved to the previous LV2 had poor threshold and diaphragm stimulation. Hemostatic sutures were placed to prevent back bleed. Following which, the pocket was revised for DISTANCE LEARNING ADMINISTRATOR-P. Pocket hemostasis was secured and it was then copiously and vigorously irrigated with antibiotic solution. The leads were wrapped under the device and the device was placed in the pocket and the device tacked to the underlying capsule as well as muscle. The pocket was closed in layers: subcutaneous layer using 2-0 Vicryl and skin using 3-0 Monocryl. Occlusive dressing was placed on top. Lead parameters (more content not included)... [facility] 01-13-2024 Note Patient: Debra peace Procedure Information Date/Time: 01/13/24 1300 Procedures: AV node ablation - PC APPROVED to be done w biV upgrade Biventricular ICD upgrade - w av node ablation Location: [facility] CO[facility] MACHINE OFFBEARER 1 EP / [facility] (Cath) Providers: Param Quiroga MD Clinical information reviewed: Physical Exam Airway Mallampati: II TM distance: >3 FB Neck ROM: full Cardiovascular Dental Pulmonary Abdominal Anesthesia Plan ASA 3 CSE Anesthetic plan and risks discussed with patient. Use of blood products discussed with patient who. Additional Equipment Requests [facility] 12-08-2023 Note [place] Electrophysiology Consult Note Reason for visit: Afib, [...] thyroid issues. She had previous seen a order processor and an outlying facility and recently moved here about 2 years ago and has not established with a order processor. She was seen by Gracia SOSA and subsequently started on anticoagulation with Eliquis. previously she had afib ablation with [facility] before 2009 had for unclear reasons was not placed on anticoagulation when he saw her. she got admitted to [facility] ED on 02/06/2023 following a fall. versus attributed to be a mechanical fall as she tripped on the corner curb. no loss of consciousness. CT of the head was negative for any hemorrhage. she had some lacerations which were sutured. She had a recent echocardiogram done which showed cardiomyopathy with a EF of 35 to 40%. [id number] at least 6 for age, gender, hypertension, [...] Intimate Partner Violence: Not At Risk (04/10/2023) [place] Safety & Environment Fear of Current or [...] 20 mg ta (more content not included)... [facility] 09-17-2023 Note [place] Electrophysiology Consult Note Reason for visit: Afib, [...] thyroid issues. She had previous seen a order processor and an outlying facility and recently moved here about 2 years ago and has not established with a order processor. She was seen by Gracia SOSA and subsequently started on anticoagulation with Eliqukelly. previously she had afib ablation with [facility] before 2009 had for unclear reasons was not placed on anticoagulation when he saw her. she got admitted to [facility] ED on 02/06/2023 following a fall. versus attributed to be a mechanical fall as she tripped on the corner curb. no loss of consciousness. CT of the head was negative for any hemorrhage. she had some lacerations which were sutured. She had a recent echocardiogram done which showed cardiomyopathy with a EF of 35 to 40%. [id number] at least 6 for age, gender, hypertension, [...] Intimate Partner Violence: Not At Risk (04/10/2023) [place] Safety & Environment Fear of Current or [...] into each n (more content not included)... [facility] 09-17-2023 Note Patient here for fol low up cardioversion performed on 07/22/[address] Quiroga. She denies chest pain, SOB, palpitations, lightheadedness/syncope, and bleeding on Eliquis. Review of Systems Constitutional: Positive for malaise/fatigue. Respiratory: Positive for cough. Musculoskeletal: Positive for arthritis, back pain, joint pain and myalgias. Neurological: Positive for headaches and numbness. All other systems reviewed and are negative. [facility] 09-04-2023 Note This report has been cancelled. [facility] 07-22-2023 Note DIRECT CARDIOVERSION PROCEDURE NOTE [...] Continue anticoagulation. Param Quiroga MD Cardiac Electrophysiology [facility] 07-22-2023 Note Patient: Debra engel Procedure Information Date/Time: 07/22/23 0830 Procedure: Cardioversion Location: [facility] CO[facility] MACHINE OFFBEARER HOLDING ROOM / [facility]ASCULAR [facility] (Cath) Providers: Param Quiroga MD Clinical information reviewed: Tobacco Allergies Meds Med Hx Surg Hx OB Status Fam Hx Soc Hx Physical Exam Airway Mallampati: II TM distance: >3 FB Neck ROM: full Cardiovascular Dental Pulmonary Abdominal Anesthesia Plan ASA 2 CSE Anesthetic plan and risks discussed with patient. Use of blood products discussed with patient who. Additional Equipment Requests [facility] 07-22-2023 Note This report has been cancelled. [facility] 07-14-2023 Note [place] Electrophysiology Consult Note Reason for visit: Afib, [...] thyroid issues. She had previous seen a order processor and an outlying facility and recently moved here about 2 years ago and has not established with a order processor. She was seen by Gracia SOSA and subsequently started on anticoagulation with Eliquis. previously she had afib ablation with [facility] before 2009 had for unclear reasons was not placed on anticoagulation when he saw her. she got admitted to [facility] ED on 02/06/2023 following a fall. versus attributed to be a mechanical fall as she tripped on the corner curb. no loss of consciousness. CT of the head was negative for any hemorrhage. she had some lacerations which were sutured. She had a recent echocardiogram done which showed cardiomyopathy with a EF of 35 to 40%. [id number] at least 6 for age, gender, hypertension, [...] 100 mcg by mouth in the morning. nyqkamg-uehj-docpj-oreg-capryl 100 mg-150 mg- 50 mg-150 mg capsule Take 1 capsule by mouth in the morning. venlafaxine XR (Effexor-XR (more content not included)... [facility] 05-26-2023 Note Patient here for fol low up cardioversion. Review of Systems Constitutional: Positive for malaise/fatigue. Hematologic/Lymphatic: Bruises/bleeds easily. All other systems reviewed and are negative. [facility] 05-26-2023 Note [place] Electrophysiology Consult Note [...] thyroid issues. She had previous seen a order processor and an outlying facility and recently moved here about 2 years ago and has not established with a order processor. She was seen by Gracia SOSA and subsequently started on anticoagulation with Eliquis. previously she had afib ablation with [facility] before 2009 had for unclear reasons was not placed on anticoagulation when he saw her. she got admitted to [facility] on 02/06/2023 following a fall. versus attributed to be a mechanical fall as she tripped on the corner curb. no loss of consciousness. CT of the head was negative for any hemorrhage. she had some lacerations which were sutured. She had a recent echocardiogram done which showed cardiomyopathy with a EF of 35 to 40%. [id number] at least 6 for age, gender, hypertension, [...] Take 3 capsules (more content not included)... [facility] 05-11-2023 Note Patient: Debra engel Procedure Information Date/Time: 05/11/23 1200 Procedure: Cardioversion Location: [facility] CO[facility] MACH[facility] OFFBEARER HOLDING ROOM / [facility]ASC[facility] (Cath) Providers: Param Quiroga MD Clinical information reviewed: Allergies Meds OB Status Physical Exam Airway Mallampati: II TM distance: >3 FB Neck ROM: full Cardiovascular Dental Pulmonary Abdominal Anesthesia Plan ASA 2 CSE Anesthetic plan and risks discussed with patient. Use of blood products discussed with patient who. Additional Equipment Requests [facility] 04-23-2023 Note Patient seen for wou [...] weeks. 5. No driving for 1 month. [facility] 04-23-2023 Note Patient here for wou nd check s/p device insertion with Dr. Nuñez on 04/10/2023. [facility] 04-10-2023 Note Indications for perm anent [...] of the upper extremity Jovanny Nuñez M.D. [facility] supply chain tech and Pediatrics Director: Cardiac Electrophysiology Program [facility] 04-10-2023 Note Patient: Debra engel Procedure Information Date/Time: 04/10/232319 Procedure: Implant PPM Location: [facility] CO[facility] MACHINE OFFBEARER 1 EP / [facility]ASC[facility] (Cath) Providers: Jovanny Nuñez MD [...] discussed with patient who. Additional Equipment Requests [facility] 04-10-2023 Note Patient: Debra engel Procedure Information Date/Time: 04/10/232319 Procedure: Implant PPM Location: [facility] MACHINE OFFBEARER 1 / [facility] (Cath) Providers: Jovanny Nuñez MD Clinical information reviewed: Allergies Physical Exam Airway Mallampati: I Cardiovascular - normal exam Dental - normal exam Pulmonary - normal exam Abdominal - normal exam Anesthesia Plan Additional Equipment Requests [facility] 03-27-2023 Note [place] Electrophysiology Consult Note Reason for visit: Afib [...] thyroid issues. She had previous seen a order processor and an outlying facility and recently moved here about 2 years ago and has not established with a order processor. She was seen by Gracia SOSA and subsequently started on anticoagulation with Eliquis. previously she had afib ablation with [facility] before 2009 had for unclear reasons was not placed on anticoagulation when he saw her. she got admitted to [facility] ED on 02/06/2023 following a fall. versus attributed to be a mechanical fall as she tripped on the corner curb. no loss of consciousness. CT of the head was negative for any hemorrhage. she had some lacerations which were sutured. She had a recent echocardiogram done which showed cardiomyopathy with a EF of 35 to 40%. [id number] at least 6 for age, gender, hypertension, [...] 100 mcg by mouth in the morning. mthbtnp-imbi-pmqfk-oreg-capryl 100 mg-150 mg- 50 mg-150 mg capsule Take 1 capsule by mouth in the morning. venlafaxine XR (Effexor-XR) 75 mg 24 hr capsule Take 75 mg by mouth in the morning, at noon, and at bedtime. vit C,C-Wb-srbci-lutein-zeaxan (PreserVision AREDS-2) 250-90-40-1 mg capsule Take 2 [...] Exam: Constitutional Ge (more content not included)... [facility] 02-17-2023 Evaluation note Encounter Date Diagnosis Assessment Notes Jan, Visit for suture removal (ICD-10 - Z48.02) 3 sutures removed from R 3rd finger - tolerated well. Jan, Atrial fibrillation (ICD-10 - I48.91) BP low today. Pt states she just left Dr. Garay's office and she is scheduled for a heart cath. [facility] 09-26-2023 NoteUT Electrophysiology Consult Note Reason for visit: Afib HPI: Debra Rodriguez is a 82 y.o. year old with past medical history of htn, GERD, sleep apnea, mitral valve prolapse, A-fib, c-diff, TIA, HLD, it is noted in her H&P per PCP she has been on a medication for afib but it caused her thyroid issues. She had previous seen a order processor and an outlying facility and recently moved here about 2 years ago and has not established with a order processor. She was seen by Gracia SOSA and subsequently started on anticoagulation with Eliquis. previously she had afib ablation with [facility] before 2009 had for unclear reasons was not placed on anticoagulation when he saw her. she got admitted to [facility] ED on 02/06/2023 following a fall. versus attributed to be a mechanical fall as she tripped on the corner curb. no loss of consciousness. CT of the head was negative for any hemorrhage. she had some lacerations which were sutured. She had a recent echocardiogram done which showed cardiomyopathy with a EF of 35 to 40%. [id number] at least 6 for age, gender, hypertension, [...] normal upstroke, n (more content not included)... [facility] Evaluation note* Encounter Date Diagnosis Assessment [...] for Sleep study retitration and consultation with [facility] sleep lab. Jun, Pain in right foot (ICD-10 - M79.671) Jun, Pain in left foot (ICD-10 - M79.672) Jun, Allergic rhinitis, unspecified seasonality, unspecified trigger (ICD-10 - J30.9) [facility] 04-27-2021 Telephone encounter Note* Telephone Encounter - Leonora Saunders - 09/18/2020 9:16 AM EDT Amiodarone was discontinued, last notes states the patient moved and has established care elsewhere. [id number] Miscellaneous Notes* Telephone Encounter - Leonora Saunders - 09/18/2020 9:16 AM EDT Amiodarone was discontinued, last notes states the patient moved and has established care elsewhere. 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 Diagnosis residential current use of ant iarrhythmic drug Diagnosis residential current use of ant iarrhythmic drug Diagnosis PAF (paroxysmal atrial fibri llation) ([facility]) - Primary Atrial fibrillation residential current use of ant iarrhythmic drug Paroxysmal atrial fibrillati on (HCC) 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, unspecified ty pe Obesity, unspecified classif ication, unspecified obesity type, unspecified whether serious comorbidity present Diagnosis Fecal impaction (HCC) Other impaction of intestine Diagnosis PAF (paroxysmal atrial fibrillation) ([facility])- Primary Atrial fibrillation 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, 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 Diagnosis residential current use of 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 drug PAF (paroxysmal atrial fibrillation) (HCC) Atrial fibrillation Diagnosis PAF (paroxysmal atrial fibrillation) ([facility]) Atrial fibrillation residential current use of 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 drug 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, unspecified [...] are in the chart, copy placed in Ateo.) Pt currently has recall for O.V 03/2018 [...] - 01/09/2017 10:52 AM EDT Rec'd from [facility] pt's Class III labwork dated 01/06/17 for [...] - 09/29/2018 2:38 PM EDT [facility] [address] [facility] [address] [facility] [id number] Electrophysiology [facility] Office Visit Debra Rodriguez (77 y.o. ( 1940) female) Date of service - 09/29/18 Primary healthcare providers: Nia Alcaraz MD (Family); Nia Alcaraz* (Referring)? ASSESSMENT: 1. PAF (paroxysmal atrial fibrillation) (HCC) Stable. No clinical recurrence. Continue medical management. Follow-up EP clinic 1 year. 2. residential current use of 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 drug. Stable. Labs [...] rhythm, within normal limits Document generated by [employer] voice recognition dictation system to expedite reporting. Please excuse any syntax, spelling or grammatical errors caused by [employer] dictation. Medication list reviewed on 09/29/18 2:38 [...] on 09/29/18 2:38 PM Leonora Saunders MD, [facility], [facility]. Cardiac Electrophysiology, Cardiovascular Disease. [facility]. documented in [...] reminder letter mailed with a list of [facility] lab facilities with a note instructing pt to call the facility prior to going to make sure it is open. documented in this encounter* Shelia Beckett PharmD - 01/13/2020 12:38 PM EDT Several attempts to call patient and Candice Barnett RN, was able to connect with her today and instructed patient of [facility]'s recs. See telephone encounter dated 01/12/20. * Leonora Saunders MD - 01/12/2020 4:20 PM EDT Shelia in addition to dose reduction and follow-up chest x-ray/thyroid function studies mentioned inmy previous note, I recommend a referral to Dr. Jewel Perrin (pulmonary) to get his opinion regarding this chest x-ray abnormality. Thanks, let me know the outcome. * Leonora Saundres MD - 01/09/2020 8:41 PM EDT Please decrease amiodarone to 100 mg daily. Repeat chest x-ray and TSH in 4-6 weeks The patient is relocating care closer to home, please find out where she wants testing and follow up done Thank you * Shelia Beckett, PharmD - 01/09/2020 8:45 AM EDT Debra [...] of mild basilar fibrosis. Will route to [facility] for final comment given CXR findings as [...] - 01/06/2020 10:40 AM EDT [facility] [address] [facility] [address] [facility] [id number] Cardiac Electrophysiology Clinic Office Visit Debra Rodriguez [...] Patient states that she has moved to [facility] and plans on transitioning all of [...] rhythm. No acute changes. Document generated by [employer] recognition dictation system to expedite reporting. Please excuse any syntax, spelling or grammatical errors caused by [employer] dictation. Medication list reviewed on 01/06/20 10:40 [...] on 01/06/20 10:40 AM Leonora Saunders MD, [facility], [facility]. Cardiac Electrophysiology, Cardiovascular Disease. [facility]. documented in [...] be sent through Care Everywhere. 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 No records here from [place] [employer]. Diagnosis 1 Atrial fibrillation (I48.91) Referral Organization [facility] [employer] ernie Referring Provider First Name Boyd Referring Provider Last Name Dianna Referring Provider Specialty [facility] Nadanu Referred Organization Unknown Facility Referred Provider Carl Kuhn Referred Provider Specialty Cardiology Referral Priority Routine Referral Appointment Date 2022-08-15 General Notes Cinthia Jacobson 10:24:39 AM >received today, no notes to send with referral. I called patient and left detailed message to see if she can provide me the doctors name she saw in [place]. will follow back up Cinthia Jacobson 07/03/2022 08:27:02 AM >referral faxed, but still waiting on a call back from patient about old records Cinthia Jacobson 07/10/2022 09:19:20 AM >faxed first attempt letter Clinical Notes F: [id number] GERARD Gracia Foster Reason *FU 07/30 CALL [facility] office - callouses and pain Diagnosis 1 Pain in right foot ( M79.671) Referral Organization [facility] [employer] Referring Provider First Name Boyd Referring Provider Last Name Dianna Referring Provider Specialty [facility] Nadanu Referred Organization [facility] Referred Provider Uziel Oconnor Referred Address ,[place], [place],[address] Referred Provider Specialty Podiatry - S urgical Chiropody Referral Priority Routine General Notes Cinthia Jacobson 10:46:32 AM >received today, attachments made, notes locked, and referral faxed Cinthia Jacobson 07/09/2022 06:48:57 AM >faxed first attempt letter Cinthia Jacobson 07/16/2022 08:32:45 AM >faxed second attempt letter Cinthia Jacobson 07/23/2022 09:30:19 AM >faxed third attempt letter. will call next Clinical Notes [id number] Summary Purpose Family History No Family History [...] Associated Order(s): ED CONSULT TO MEDICAL - HOSTESS COMPLEX DISCHARGE Date: 07/02/2018 Time: 8:21 AM [...] home. Pass provided and pt taken to [facility]. Discharge Readiness Expected Discharge Date: 07/02/[address] [facility] Disposition D/C Disposition: Home Agency/Destination: Home [...] 61/bowel obstruction/dr. Snell in this encounter Quick Rula - Criss Bone CNP - 07/02/2018 8:07 [...] section and content) DATE CREATED AUTHOR 10/16/[address] [facility] DATE CREATED AUTHOR AUTHOR'S ORGANIZ ATION 03/25/2019 [facility] DATE CREATED AUTHOR AUTHOR'S ORGANIZ ATION 02/07/2020 [facility] DATE CREATED AUTHOR AUTHOR'S ORGANIZ ATION 02/07/2020 [facility] DATE CREATED AUTHOR AUTHOR'S ORGANIZ ATION 10/01/2022 [facility]ital DATE CREATED AUTHOR AUTHOR'S ORGANIZ ATION 08/20/2023 [facility] COP DATE CREATED AUTHOR AUTHOR'S ORGANIZ ATION 02/05/2024 [facility] DATE CREATED AUTHOR AUTHOR'S ORGANIZ ATION 02/14/2024 [facility] [employer] Care Teams (unrecognized sec tion and content) Chief Scientific Officer Relationship Specialty Start Date End Date Nia Alcaraz MD PCP - General 06/06/11 Leonora Saunders MD [facility] Card[facility] 02/20/15 Team Status: Active Member Role [...] BE BASED ON THE PRIMARY CLINICAL RECORDS. [facility]. provides no warranty or guarantee of the accuracy or completeness of information in this document.
[2024-02-24 15:41] LABS: Anion Gap 10.2; BUN Creatinine Ratio 11.9; Calcium 9.5 mg/dL (8.5-10.1); Carbon Dioxide 31.9 mmol/L (21.0-32.0); Chloride 104 mmol/L (98-107); Estimated GFR (African America 49 (>=60 mL/min/1.73m^2); Estimated GFR (Non-African Ame 41 (>=60 mL/min/1.73m^2); Glucose 116 mg/dL (74-106); Potassium 4.1 mmol/L (3.5-5.1); Sodium 142 mmol/L (136-145)
== END 2024-02-24 15:20 | disposition home or self-care (01) ==
LOC: LAB 15:22
PROVIDERS: PCP Family Medicine; Visit Provider Nurse Practitioner Family
DX: I50.82 Biventricular heart failure (principal)
CPT/HCPCS: 36415; 80048

== ENCOUNTER 2024-03-14 13:05 | Outpatient (OUT) | payer MEDICARE, SELFPAY ==
--- NOTE | 2024-03-14 13:06 | CA_ITS ---
Patient Name: MAUREEN GARCÍA MR#: [id number] : 1940 Exam Date: 03/14/2024 Ordering Doctor: JUS REVELES CNP ECHOCARDIOGRAM REPORT PROCEDURE: CA ECHO DOPPLER COMPLETE INDICATIONS: Chronic heart failure COMPARISON: None. DESCRIPTION: COMPLETE ECHOCARDIOGRAM Real-time transthoracic echocardiography with 2D, M-mode, spectral and color flow Doppler performed. QUALITY: Technical quality was good. LEFT VENTRICLE: Normal chamber size. Normal left ventricular wall thickness. Global left ventricular systolic function is normal. Visual estimation of left ventricular ejection fraction is 65% LV EF: DIASTOLIC: Grade I diastolic dysfunction. ATRIAL SEPTUM: LEFT ATRIUM: Mild dilatation. RIGHT ATRIUM: Normal chamber size. RIGHT VENTRICLE: Normal chamber size. Normal right ventricular systolic function. TRICUSPID VALVE: Normal mobility and thickness. No stenosis with mild regurgitation. No evidence of pulmonary hypertension.RVSP 31mmHg MITRAL VALVE: Normal mobility and thickness. No evidence of mitral valve stenosis. Moderate mitral annular calcification. Mild mitral regurgitation. AORTIC VALVE: Normal trileaflet appearance. Moderately calcified aortic valve. Moderately diminished mobility. Doppler velocity suggest moderate aortic valve stenosis. DVI 0.4, MARGARITA 1.2cm2, Vmax 2.8m/s. Mean gradient 19mmHg. No aortic regurgitation. AORTIC ROOT: Normal diameter and appearance. PULMONIC VALVE: Normal thickness and mobility. No stenosis. No regurgitation. PERICARDIUM: No evidence of pericardial effusion. IVC: Collapes with inspirations. Normal size. PLEURA: CONCLUSION: Normal left ventricular static function without wall motion abnormalities, ejection fraction 65% Grade 1 left ventricle diastolic dysfunction Normal right ventricular size and systolic function Moderate aortic valve stenosis, mean pressure gradient 19 mmHg, aortic valve area 1.3 cm? Mild mitral regurgitation Moderate mitral annulus calcification Mild tricuspid regurgitation No evidence of pulmonary hypertension Adult Echocardiography Procedure Report Left Ventricle LVEDD (3.7 - 5.6 cm): 3.86 cm LVESD (2.2 - 4.0 cm): 2.42 cm LVIVS thickness (0.6 - 1.2 cm): 0.77 cm LVPW thickness (0.5 - 1.0 cm): 0.91 cm e': 0.07 m/s E - e': 10.44 LVOT Max Gradient: 5.86 mm[Hg], 6.87 mm[Hg] LVOT Area (cm2): 1.26 m/s Peak Velocity (LVOT): 1.21 m/s, 1.31 m/s Mean Velocity (LVOT): 0.85 m/s LVOT Diameter 1.83 cm Left Ventricular Ejection Fraction: 71.66 % Left Atrium LA Volume Index (2D A2C): 40.46 ml/m2 Left Atrium Systolic Dimension: 3.59 cm Mitral Valve MV E to A Ratio: 0.78 Mitral Valve A-Wave Peak Velocity: 0.99 m/s Mitral Valve E-Wave Peak Velocity: 0.77 m/s Right Ventricle RV Internal Diastolic Dimension: 3.19 cm Aorta AO Root Diam: 2.90 cm Ascending Ao Diam: 2.53 cm Aortic Valve AoV Area (Peak Adam): 1.18 cm2, 1.13 cm2, 1.26 cm2 AoV Area (VTI): 1.14 cm2, 1.36 cm2, 1.22 cm2 Peak Velocity(Antegrade Flow): 2.81 m/s, 2.72 m/s, 2.78 m/s, 2.86 m/s Peak Gradient(Antegrade Flow): 31.63 mm[Hg], 29.49 mm[Hg], 30.86 mm[Hg], 32.80 mm[Hg] Mean Velocity(Antegrade Flow): 2.07 m/s, 2.02 m/s, 2.11 m/s, 2.03 m/s Mean Gradient(Antegrade Flow): 19.06 mm[Hg], 18.19 mm[Hg], 19.20 mm[Hg], 18.25 mm[Hg] Velocity Time Integral: 66.47 cm, 63.72 cm, 84.43 cm, 80.94 cm Tricuspid Valve Peak Velocity (Regurgitant Flow): 2.45 m/s, 2.34 m/s, 2.65 m/s Pulmonic Valve Mean Gradient: 3.90 mm[Hg], 3.11 mm[Hg] Mean Velocity: 0.93 m/s, 0.83 m/s Peak Velocity: 1.26 m/s Peak Gradient: 7.50 mm[Hg], 5.38 mm[Hg] Right Atrium Right Atrium Systolic Pressure: 38.43 ml, 38.43 ml Dictated by: Oscar Huff MD on 03/14/2024 at 16:11 Approved by: Oscar Huff MD on 03/14/2024 at 16:14
--- OUTSIDE RECORDS SUMMARY | 2024-03-14 13:11 | XMS_ITS | CCD ---
Author Organization [facility] ion Partnership [facility] Care Team Providers Care Dent Remover Name Role Phone Nia Alcaraz Unavailable Leonora Saunders Unavailable Unavailabl e Unavailable Primary Care Provider Griselda Alcaraz [facility] Primary [facility] Provider Leonora Saunders Unavailable [phone] Juni Alcarazine Dorota Primary Care Provider Leonora Saunders Unavailable Leonora Saunders Unavailable Lissa [facility] Primary Care Provider LISSA [facility] Unava ilable LEONORA SAUNDERS Attending Unavailabl e LEONORA SAUNDERS Referring Unavailabl e LISSA [facility] Unava ilable LEONORA SAUNDERS Admitting Unavailabl e LEONORA SAUNDERS [facility]SA [facility] Unava ilable LEONORA SAUNDERS Attending Unavailismael e LISSA [facility] Unava ilable LEONORA SAUNDERS Admitting Unavailabl e LEONORA SAUNDERS Referring [facility] Leonora Saunders Unavailable Unavailismael e Lissa SCHAEFFER, [facility] Provi mervin Leonora Saunders MD Unavailable [...] NIA Attending Unavailable GIANNETTO, NIA Attending Unavailable ANASTASIA, UZIEL Garcia Attending Unavailable MOISES JAMES Attending Unavailable BROWN, UZIEL Garcia Attending Unavailable KIMBER, PARAM Referring Unavailable KIMBER, PARAM Admitting Unavailable KIMBER, PARAM Attending Unavailable WITHERELLALEC Attending Unavailable HAY, BECKY Referring Unavailable SAVANNAH, JOVANNY Admitting Unavailable SAVANNAH, JOVANNY Attending Unavailable BARAZI, GRACIA Referring Unavailable KIMBER, PARAM Admitting Unavailable KIMBER, PARAM Attending Unavailable KIMBER, PARAM Admitting Unavailable KIMBER, PARAM Attending Unavailable SAVANNAH, JOVANNY Referring Unavailable BARAZI, GRACIA Attending Unavailable KIMBER, PARAM Referring Unavailable ABDIRIZAKJUS Attending Unavailable KIMBER, PARAM Referring Unavailable BARAZI, GRACIA Attending Unavailable KIMBER, PARAM Referring Unavailable KIMBER, PARAM Attending Unavailable KIMBER, PARAM Referring Unavailable KIMBER, PARAM Referring Unavailable KIMBER, PARAM Referring Unavailable ABDIRIZAK, JUS Attending Unavailable KIMBER, PARAM Attending Unavailable ABDIRIZAKJUS Attending Unavailable Allergies Allergy Classification Reported Allergen(s) Allergy Type Date of Onset Reaction(s) Facility (20 sources) Adhesive Tape; Translations: [Unknown] Propensity to adverse reactions to drug 03-14-20 15 Unknown, Hives [facility] Work Phone: (20 sources) Sulfonamides (Antibiotic); Translations: [SULFA (SULFONAMIDE ANTIBIOTICS)] Propensity to adverse reactions to drug 03-14-20 15 [facility] Work Phone: (3 sources) amoxicillin Drug Allergy 03-14-20 15 [facility] Work Phone: (4 sources) Sulfonamides (Antibiotic) Propensity to adverse reactions to drug 03-14-20 15 [facility] (10 sources) Sulfonamides (Antibiotic) Propensity to adverse reactions Unknown [facility] [employer] Other (1 source) Sulfonamides (Antibiotic) Drug allergy (disorder) 05-10-20 19 [facility] Repository (3 sources) Adhesive Tape Drug allergy Unknown [facility] [employer] Other (2 sources) Allergies Reconciled Propensity to adverse reactions Unknown [facility] [employer] Other (1 source) ALLERGIES NOT ON FILE; Translations: [ALLERGIES NOT ON FILE] Propensity to adverse reactions (disorder) [facility] Repository (1 source) Adhesive Tape Allergy to substance 10-01-19 24 [facility] Medications Current Medications Medication Drug Class(es) [...] mouth once daily take 2 tablets by [facility] once daily azaTHIOprine 50 MG TAKE 2 [...] Start: 11-06-2019 take 1 capsule by [facility] once daily Synthroid 100 mcg tablet Take [...] DAILY Active take 1 capsule by mo [facility] every twenty-four hours Venlafaxine HCl ER 75 [...] 2023 3:03pm take 3 tablets by mo [facility] every twenty-four hours buPROPion HCl ER [...] disease (1 source) Allergic rhinitis, unspecified Chronic Regional enteritis and ulcerative colitis (12 [...] Unclassified (17 sources) Drug therapy finding; Translations: [long-term current use of 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 drug] Onset: 04-08-2017 04-08-2017 Unclassified (10 sources) Long-term current use of drug therapy; Translations: [long-term current use of 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 drug] Onset: 04-08-2017 04-08-2017 Unclassified (2 sources) Longstanding persistent atrial fibrillation; Translations: [Longstanding persistent atrial fibrillation] Onset: 03-30-2023 Past or Other Problems Problem Classification Problem Date Documented Da te Episodic/Chronic Intestinal obstruction without hernia (16 sources) Fecal impaction; Translations: [Fecal impaction] Onset: 07-02-2018 07-02-2018 Episodic Malaise and fatigue (2 sources) Other fatigue; Translations: [Other fatigue] Onset: 09-17-2023 Episodic Other aftercare (1 source) Long-term current use of drug therapy; Translations: [Other longterm (current) drug therapy] Onset: 04-08-2017 04-08-2017 Episodic Other aftercare (2 sources) Encounter for follow-up examination after completed treatment for conditions other than malignant neoplasm; Translations: [Encounter for follow-up examination after completed treatment for conditions other than malignant neoplasm] Onset: 04-23-2023 Episodic Results Test Name Value Interpretation Reference Range Facility 36on 02-26-2024 36 Regarding lab result s from 02/24/2024: Jus Wheeler, IAN Musa MA Please let her know her labs show stable kidney function. Can continue lasix daily. Thanks LM on 02/25. [facility] Office Visiton 02-23-2024 Follow-up visit [id number] Emy Rodriguez 1940 F Date Provider Department Center 02/23/2024 JUS PATEL CARD [facility] No family history on file Level of Service:75647 CO OFFICE/OUTPATIENT ESTABLISHED MOD MDM 30 MIN [facility] 36on 02-03-2024 36 LM on patient's VM for her to return my call. [facility] 36on 01-27-2024 36 I don't see any Evok e transmissions for her. Does she have a home monitor set up? If not, send her the info to call them to set up if she wants home monitoring. Or she could have her device interrogated in the office sooner than the . [facility] 36 Patient called to make you aware that the past few days she's been having left-sided heart pounding . Patient denies chest pain and SOB. Heart pounding is happening at night when she is lying down. Asked her to come into the office for ECG and she said I just had one . Any way to check her device on Evoke? [facility] Telephoneon 01-27-2024 Telephone [id number] Emy Rodriguez 1940 F Date Provider Department Center 01/27/2024 928-MABLE MUSA [facility] No family history on file [facility] Office Visiton 01-20-2024 Follow-up visit [id number] Emy Rodriguez 1940 Date Provider Department [place] 01/20/2024 JUS PATEL CARD [facility] No family history on file Level of Service:00964 CO OFFICE/OUTPATIENT ESTABLISHED MOD MDM 30 MIN [facility] HPon 01-13-2024 [facility] Electrophysiology Consult Note Reason for visit: [...] thyroid issues. She had previous seen a beaver trapper and an outlying facility and recently moved here about 2 years ago and has not established with a beaver trapper. She was seen by Gracia SOSA and subsequently started on anticoagulation with Eliquis. previously she had afib ablation with [facility] before 2009 had for unclear reasons was not placed on anticoagulation when he saw her. she got admitted to [place] ED on 02/06/2023 following a fall. versus attributed to be a mechanical fall as she tripped on the corner curb. no loss of consciousness. CT of the head was negative for any hemorrhage. she had some lacerations which were sutured. She had a recent echocardiogram done which showed cardiomyopathy with a EF of 35 to 40%. [id number] at least 6 for age, gender, hypertension, [...] Intimate Partner Violence: Not At Risk (04/10/2023) [place] Safety & Environment Fear of Current or [...] 20 mg ta (more content not included)... [facility] NURSNOTErani 01-13-2024 NURSNOTE RN educated pt on d/ c instructions. RN encouraged pt to voice any questions or concerns. Pt verbalizes no questions or concerns at this time. Pt was wheeled off of unit with all of belongings. Normal [facility] NURSNOTE CHG wipes and betadine nasal swabs completed. Normal [facility] Orders Onlyon 01-13-2024 Orders Only [id number] Emy Rodriguez 1940 F Date Provider Department Center 01/13/2024 1557-HISE, FLAQUITA [facility] No family history on file [facility] Orders Onlyon 01-05-2024 Orders Only [id number] Emy Rodriguez 1940 F Date Provider Department Center 01/05/2024 1557-HISE, FLAQUITA [facility] No family history on file [facility] Abstracton 12-16-2023 Abstract [id number] Emy Rodriguez 1940 F Date Provider Department [place] 12/16/2023 PARAM STODDARD [facility] CARD [facility] Count No family history on file [facility] Office Visiton 12-08-2023 Follow-up visit [id number] Emy Rodriguez 1940 Date Provider Department Center 12/08/2023 PARAM STODDARD CHARY [facility] No family history on file Level of Service:17987 CO OFFICE/OUTPATIENT ESTABLISHED HIGH MDM 40 MIN [facility] Laboratory - Chemistry and C hemistry - challengeon 09-29-2023 Cobalamin (Vitamin B12) [Mass/Vol] 1712.0 pg/mL 193.0-986.0 [facility] TSH Qn 0.490 m[IU]/L 0.358-3.740 [facility] No Panel Informationon 09-28 25-Hydroxy Vitamin D Total 54.7 ng/mL [facility] Comment on above: <20 ng/mL Vit D defi cient20-<30 ng/mL Vit D mrguggbilykn87-427 ng/mL Vit D sufficient>100 ng/mL Potential Toxicity Office Visiton 09-17-2023 Follow-up visit [id number] Emy Rodriguez 1940 F Date Provider Department Center 09/17/2023 JUS PATEL CARD [facility] No family history on file Level of Service:65941 CO OFFICE/OUTPATIENT ESTABLISHED MOD MDM 30 MIN Reason for Visit and Comments: Atrial Fibrillation [80] Congestive Heart Failure [127] Normal [facility] HPon 07-22-2023 [facility] Electrophysiology Consult Note Reason for visit: [...] thyroid issues. She had previous seen a beaver trapper and an outlying facility and recently moved here about 2 years ago and has not established with a beaver trapper. She was seen by Gracia SOSA and subsequently started on anticoagulation with Eliquis. previously she had afib ablation with [facility] before 2009 had for unclear reasons was not placed on anticoagulation when he saw her. she got admitted to [place] ED on 02/06/2023 following a fall. versus attributed to be a mechanical fall as she tripped on the corner curb. no loss of consciousness. CT of the head was negative for any hemorrhage. she had some lacerations which were sutured. She had a recent echocardiogram done which showed cardiomyopathy with a EF of 35 to 40%. [id number] at least 6 for age, gender, hypertension, [...] 100 mcg by mouth in the morning. mxcqmox-veki-lxyvd-or eg-capryl 100 mg-150 mg- 50 mg-150 mg capsule Take 1 capsule by mouth in the morning. venlafaxine XR (Effexor-XR (more content not included)... Normal [facility] NURSNOTEon 07-22-2023 NURSNOTE RN educated pt on d/ c instructions. RN encouraged pt to voice any questions or concerns. Pt verbalizes no questions or concerns at this time. Normal [facility] Basophils Auto (Bld) [#/Vol] on 07-17-2023 Basophils (Bld) [#/Vol] 0.0 10 3/uL 0.0-0.1 [facility] Basophils/100 WBC Auto (Bld) on 07-17-2023 Basophils/100 WBC (Bld) 1.0 % 0.2-2.0 [facility] Eosinophils/100 WBC Auto (Bl d)on 07-17-2023 Eosinophils/100 WBC (Bld) 1.2 % 0.9-7.0 [facility] Erythrocyte distribution wid th Auto (RBC) [Ratio]on 07-17-2023 Erythrocyte distribution width (RBC) [Ratio] 15.0 % 11.0-15.0 [facility] Estimated glomerular filtrat ion rate (GFR) non- Americanon 07-17-2023 GFR/1.73 sq M.predicted among non-blacks MDRD (S/P/Bld) [Vol rate/Area] 51 mL/min/{1.73_m2} >=60 [facility] Hematocrit Auto (Bld) [Volum e fraction]on 07-17-2023 Hematocrit (Bld) [Volume fraction] 39.9 % 36.0-48.0 [facility] Hemoglobin [Mass/volume] in Bloodon 07-17-2023 Hemoglobin (Bld) [Mass/Vol] 12.8 g/dL 12.0-16.0 [facility] Laboratory - Chemistry and C hemistry - challengeon 07-17-2023 Calcium [Mass/Vol] 9.0 mg/dL 8.5-10.1 [facility] Chloride [Moles/Vol] 105 mmol/L 98-107 [facility] CO2 [Moles/Vol] 30.0 mmol/L 21.0-32.0 [facility] Creatinine [Mass/Vol] 1.03 mg/dL 0.55-1.02 [facility] GFR/1.73 sq M.predicted MDRD (S/P/Bld) [Vol rate/Area] mL/min/{1.73_m2} >=60 [facility] Glucose [Mass/Vol] 117 mg/dL 74-106 [facility] Potassium [Moles/Vol] 4.6 mmol/L 3.5-5.1 [facility] Sodium [Moles/Vol] 142 mmol/L 136-145 [facility] Urea nitrogen [Mass/Vol] 16.0 mg/dL 7.0-18.0 [facility] Urea nitrogen/Creatinine [Mass ratio] 15.5 mg/mg [facility] Laboratory - Hematology and Cell countson 07-17-2023 Immature granulocytes/100 WBC (Bld) 0.2 % 0.0-0.5 [facility] Leukocytes [#/volume] correc anila for nucleated erythrocytes in Blood by Automated counon 07-17-2023 WBC corrected for nucl RBC Auto (Bld) [#/Vol] 4.2 10 3/uL 4.0-11.0 [facility] Lymphocytes Auto (Bld) [#/Vo l]on 07-17-2023 Lymphocytes (Bld) [#/Vol] 0.7 10 3/uL 1.2-3.8 [facility] Lymphocytes/100 WBC Auto (Bl d)on 07-17-2023 Lymphocytes/100 WBC (Bld) 17.1 % 20.5-60.0 [facility] MCH Auto (RBC) [Entitic mass ]on 07-17-2023 MCH (RBC) [Entitic mass] 31.5 pg 26.7-34.0 [facility] MCHC Auto (RBC) [Mass/Vol]on 07-17-2023 MCHC (RBC) [Mass/Vol] 32.1 g/dL 29.9-35.2 [facility] MCV Auto (RBC) [Entitic vol] on 07-17-2023 MCV (RBC) [Entitic vol] 98.3 fL 81.0-99.0 [facility] Monocytes Auto (Bld) [#/Vol] on 07-17-2023 Monocytes (Bld) [#/Vol] 0.4 10 3/uL 0.3-0.8 [facility] Monocytes/100 WBC Auto (Bld) on 07-17-2023 Monocytes/100 WBC (Bld) 9.0 % 1.7-12.0 [facility] Neutrophils Auto (Bld) [#/Vo l]on 07-17-2023 Neutrophils (Bld) [#/Vol] 3.0 10 3/uL 1.4-6.5 [facility] Neutrophils/100 WBC Auto (Bl d)on 07-17-2023 Neutrophils/100 WBC (Bld) 71.5 % 43.0-75.0 [facility] No Panel Informationon 07-17 Eosinophils # (Auto) 0.1 10 3/uL 0.0-0.7 [facility] Immature Granulocyte # (Auto) 0.01 10 3/uL 0.00-0.03 [facility] Platelet mean volume Auto (B ld) [Entitic vol]on 07-17-2023 Platelet mean volume (Bld) [Entitic vol] 9.9 fL 9.5-13.5 [facility] Platelets Auto (Bld) [#/Vol] on 07-17-2023 Platelets (Bld) [#/Vol] 188 10 3/uL 150-450 [facility] RBC Auto (Bld) [#/Vol]on RBC (Bld) [#/Vol] 4.06 10 6/uL 4.20-5.40 [facility] Serum or plasma anion gap de terminationon 07-17-2023 Anion gap [Moles/Vol] 11.6 mmol/L [facility] Office Visiton 07-14-2023 Follow-up visit [id number] Emy Rodriguez paul 1940 F Date Provider Department Center 07/14/2023 241-PARAM QUIROGA [facility] No family history on file Level of Service:68110 CO OFFICE/OUTPATIENT ESTABLISHED LOW MDM 20 MIN Normal [facility] Orders Onlyon 07-14-2023 Orders Only [id number] JenniferEmy 1940 F Date Provider Department Center 07/14/2023 KISHOR MONTESINOS [facility] No family history on file Normal [facility] Office Visiton 05-26-2023 Follow-up visit [id number] Gabi Rodriguezvaleria miller 1940 F Date Provider Department Center 05/26/2023 GRACIA CHAMBERLAIN [facility] No family history on file Level of Service:82705 CO OFFICE/OUTPATIENT ESTABLISHED MOD MDM 30 MIN Normal [facility] HPon 05-11-2023 HP History Of Present Illness Debra Rodriguez is a 82 y.o. female presenting with htn, GERD, sleep apnea, mitral valve prolapse, A-fib, c-diff, TIA, HLD, it is noted in her H&P per PCP she has been on a medication for afib but it caused her thyroid issues. She had previous seen a beaver trapper and an outlying facility and recently moved here about 2 years ago and has not established with a beaver trapper. She was seen by Gracia SOSA and subsequently started on anticoagulation with Eliquis. previously she had afib ablation with [facility] before 2009 had for unclear reasons was not placed on anticoagulation when he saw her. she got admitted to [place] ED on 02/06/2023 following a fall. versus [...] Dr Nuñez. She has come for DCCV. [id number] at least 6 for age, gender, hypertension, [...] mcg by mouth in the morning. 05/11/2023 gkuwnbp-gcdo-sdwoy-or eg-capryl 100 mg-150 mg- 50 mg-150 mg capsule Take 1 capsule by mouth in the morning. 05/11/2023 venlafaxine XR (Effexor-XR) 75 mg 24 hr capsule Take 75 mg by mouth in the morning, at noon, and at bedtime. 05/11/2023 vit C,J-Gy-vimat-lutein-z eaxan (PreserVision AREDS-2) 250-90-40-1 mg capsule Take [...] thoracic defo (more content not included)... Normal [facility] NURSNOTEon 05-11-2023 NURSNOTE RN educated pt on d/ c instructions. RN encouraged pt to voice any questions or concerns. Pt verbalizes no questions or concerns at this time. Normal [facility] NURSNOTE Bedside swallow stud y completed and passed. Normal [facility] Office Visiton 04-23-2023 Follow-up visit [id number] Emy Rodriguez 1940 F Date Provider Department Center 04/23/2023 [id number] SALEEM CARD [facility] No family history on file Level of Service:40969 CO POSTOP FOLLOW UP VISIT RELATED TO ORIGINAL PX [facility] BASIC METABOLIC PANELon 11- Anion gap [Moles/Vol] 12 mmol/L Normal 7-20 [facility] Comment on above: Performed By: #### L [id number] ####[facility] ([facility])[address] [place] [address] Calcium [Mass/Vol] 9.7 mg/dL Normal 8.6-10.3 [facility] Comment on above: Performed By: #### L [id number] ####[facility] ([facility])[address] [place] [address] Chloride [Moles/Vol] 108 mmol/L High 98-107 [facility] Comment on above: Performed By: #### L [id number] ####[facility] ([facility])[address] [place] [place] [address] CO2 [Moles/Vol] 23 mmol/L Normal 21-31 [facility] Comment on above: Performed By: #### L [id number] ####[facility] ([facility])[address] [place] [place] [address] Creatinine [Mass/Vol] 0.92 mg/dL Normal 0.60-1.20 [facility] Comment on above: Performed By: #### L [id number] ####[facility] [place] [address] GLOMERULAR FILTRATION RATE ML/MIN/1.73 SQ M.PREDICTED 62.2 mL/min/1.73m*2 Normal >60.0 [facility] Comment on above: Result Comment: [facility]???s estimated glomerular filtration rate (eGFR) will no [...] of individuals. Performed By: #### L [id number] ####[facility] ([facility])[address] [place] [address] Glucose [Mass/Vol] 67 mg/dL Low 70-100 [facility] Comment on above: Performed By: #### L [id number] ####[facility] ([facility])[address] [place] [address] Potassium [Moles/Vol] 3.9 mmol/L Normal 3.5-5.1 [facility] Comment on above: Performed By: #### L [id number] ####[facility] ([facility])[address] [place] [address] Sodium [Moles/Vol] 139 mmol/L Normal 136-145 [facility] Comment on above: Performed By: #### L [id number] ####[facility] ([facility] [place] [address] Urea nitrogen [Mass/Vol] 12 mg/dL Normal 7-25 [facility] Comment on above: Performed By: #### L [id number] ####[facility] ([facility] [place] [address] UREA NITROGEN/CREATININE (MASS RATIO) IN SER/PLAS 13.0 Normal [facility] Comment on above: Performed By: #### L [id number] ####[facility] ([facility])[address] [place] [address] CBCon 04-11-2023 Erythrocyte distribution width (RBC) [Ratio] 14.8 % Normal 11.5-15.0 [facility] Comment on above: Performed By: #### L [id number] #### [facility] ([facility]) [address] [place] [address] ERYTHROCYTE MEAN CORPUSCULAR HEMOGLOBIN CONCENTRATION (G/DL) BY AUTOMATED 33.3 g/dL Normal 32.0-35.0 [facility] Comment on above: Performed By: #### L [id number] #### [facility] ([facility]) [address] [place] [address] Hematocrit (Bld) [Volume fraction] 40.0 % Normal 36.0-48.0 [facility] Comment on above: Performed By: #### L [id number] #### [facility] [address] [place] [address] Hemoglobin (Bld) [Mass/Vol] 13.3 g/dL Normal 12.0-15.0 [facility] Comment on above: Performed By: #### L [id number] #### [facility] [address] [place] [address] MCH (RBC) [Entitic mass] 31.7 pg Normal 27.0-33.0 [facility] Comment on above: Performed By: #### L [id number] #### [facility] [address] [place] [address] MCV (RBC) [Entitic vol] 95.5 fL Normal 82.0-98.0 [facility] Comment on above: Performed By: #### L [id number] #### [facility] [address] [place] [address] PLATELETS (10*3/UL) IN BLOOD AUTOMATED COUNT 245 10*3/uL Normal 150-400 [facility] Comment on above: Performed By: #### L [id number] #### [facility] [address] [place] [address] RBC (Bld) [#/Vol] 4.19 10*6/uL Normal 3.80-5.00 [facility] Comment on above: Performed By: #### L [id number] #### [facility] [address] [place] [address] WBC (Bld) [#/Vol] 9.32 10*3/uL Normal 4.00-10.60 [facility] Comment on above: Performed By: #### L [id number] #### [facility] ([facility] [address] [place] [address] DSon 04-11-2023 DS - Attestation signed by [...] AREDS-2 250-90-40-1 mg capsule Generic drug: vit C,O-Wo-hczir-lutein-z eaxan Synthroid 100 mcg tablet Generic drug: levothyroxine kpmfdow-keew-gdebk-or eg-capryl 100 mg-150 mg- 50 mg-150 mg capsule venlafaxine XR 75 mg 24 hr capsule Commonly known as: Effexor-XR Vitamin D3 10 mcg (400 unit) capsule Generic drug: cholecalciferol (vitamin D3) Where to Get Your Medications These medications were sent to [facility]/pharmacy #[id number] AT [place] [address] apixaban 5 mg tablet Activity Patient currently [...] a buri (more content not included)... Normal [facility] POCT GLUCOSE METER UNSOLICIT ED RESULTSon 04-11-2023 Glucose [Mass/Vol] 143 mg/dL High 70-105 [facility] Comment on above: Order Comment: Waive d Testing in the ED is performed under the ED CLIA certificate #[id number]. Result Comment: [email or web address] Performed By: #### L [id number] ####[facility] ([facility] [place] [address] Glucose [Mass/Vol] 81 mg/dL Normal 70-105 [facility] Comment on above: Order Comment: Waive d Testing in the ED is performed under the ED CLIA certificate #[id number]. Result Comment: [email or web address] Performed By: #### L [id number] ####[facility] ([facility])[address] [place] [address] 30on 04-10-2023 30 The patient is Moderately Stable - Low risk of patient condition declining or worsening The patient's goals for the shift include comfort The clinical goals for the shift include VSS Over the shift, the patient did make progress toward her goals. Normal [facility] 30 The patient is Moderately Stable - Low risk of patient condition declining or worsening The patient's goals for the shift include comfort The clinical goals for the shift include VSS Normal [facility] HPon 04-10-2023 History Of Present Illness Debra Rodriguez is [...] Problem: AV block Pacemaker Jovanny Nuñez MD [facility] NURSNOTEon 04-10-2023 NURSNOTPaul RN messaged hospitalist regarding patient admit orders and med rec, per hospitalist cardiology is primary. RN paged and received a call from Jewel, secretary to board of commissioners beaver trapper, and was told that hospitalist was primary. RN contacted hospitalist again regarding information. Per hospitalist, they had talked to Jewel and informed him that cardiology was primary. RN told that [place] will contact [place] and place further orders. Ruffler will update day team and await further orders. [facility] Orders Onlyon 04-10-2023 Orders Only [id number] Emy Rodriguez 1940 F Date Provider Department [place] 04/10/2023 HERMINIA BOND [facility] [place] [facility] No family history on file [facility] Prep for Procedureon 023 Prep for Procedure [id number] Emy Rodriguez 1940 F Date Provider Department [place] 04/10/2023 SHAW FISCHER [facility] IM [facility] No family history on file [facility] Follow-Upon 03-27-2023 Follow-Up [id number] Emy Rodriguez 1940 F Date Provider Department [place] 03/27/2023 Catrina-GRACIA PENA [facility] No family history on file Level of Service:57223 CO OFFICE/OUTPATIENT ESTABLISHED MOD MDM 30-39 MIN Reason for Visit and Comments: Follow-up [075100] [facility] BNPon 07-24-2022 Natriuretic peptide B (Bld) [Mass/Vol] 1076.0 pg/mL Normal <=1,800.0 [facility] Comment on above: Performed By: #### L IPID, TSH, BNP, CMP #### [facility] [address] [address] [address] Ana Fish CBC AUTO DIFFon 07-24-2022 BASO # 0.0 103/ul Normal 0.0-0.1 [facility] Comment on above: Performed By: #### C BC #### [facility] [address] [address] [address] Ana Fish Basophils/100 WBC (Bld) 0.4 % Normal 0.2-2.0 [facility] Comment on above: Performed By: #### C BC #### [facility] [address] [address] [address] Ana Fish EO # 0.1 103/ul Normal 0.0-0.7 [facility] Comment on above: Performed By: #### C BC #### [facility] [address] [address] [address] Ana Fish Eosinophils/100 WBC (Bld) 1.3 % Normal 0.9-7.0 [facility] Comment on above: Performed By: #### C BC #### [facility] [address] [place] [address] Dr. Ana Fish Erythrocyte distribution width (RBC) [Ratio] 15.5 % Critically high 11.0-15.0 [facility] Comment on above: Performed By: #### C BC #### [facility] [address] [place] [address] Dr. Ana Fish Hematocrit (Bld) [Volume fraction] 37.0 % Normal 36.0-48.0 [facility] Comment on above: Performed By: #### C BC #### [facility] [address] [place] [address] Dr. Ana Fish Hemoglobin (Bld) [Mass/Vol] 12.7 g/dL Normal 12.0-16.0 [facility] Comment on above: Performed By: #### C BC #### [facility] [address] [place] [address] Dr. Aan Fish IG # 0.03 10e3/ul Normal 0.00-0.03 [facility] Comment on above: Performed By: #### C BC #### [facility] [address] [place] [address] Dr. Ana Fish IG % 0.4 % Normal 0.0-0.5 [facility] Comment on above: Performed By: #### C BC #### [facility] [address] [place] [address] Dr. Ana Fish LYMPH # 1.6 103/ul Normal 1.2-3.8 [facility] Comment on above: Performed By: #### C BC #### [facility] [address] [place] [address] Dr. Ana Fish Lymphocytes/100 WBC (Bld) 19.0 % Critically low 20.5-60.0 [facility] Comment on above: Performed By: #### C BC #### [facility] [address] [place] [address] Dr. Ana Fish MANUAL DIFF REQ NO Normal [facility] Comment on above: Performed By: #### C BC #### [facility] [address] [place] [address] Dr. Ana Fish MCH (RBC) [Entitic mass] 32.3 pg Normal 26.7-34.0 [facility] Comment on above: Performed By: #### C BC #### [facility] [address] [place] [address] Dr. Ana Fish MCHC (RBC) [Mass/Vol] 34.3 g/dL Normal 29.9-35.2 [facility] Comment on above: Performed By: #### C BC #### [facility] [address] [place] [address] Dr. Ana Fish MCV (RBC) [Entitic vol] 94.1 fL Normal 81.0-99.0 [facility] Comment on above: Performed By: #### C BC #### [facility] [address] [place] [address] Dr. Ana Fish MONO # 0.8 103/ul Normal 0.3-0.8 [facility] Comment on above: Performed By: #### C BC #### [facility] [address] [place] [address] Dr. Ana Fish Monocytes/100 WBC (Bld) 9.7 % Normal 1.7-12.0 [facility] Comment on above: Performed By: #### C BC #### [facility] [address] [address] [address] Ana Fish NEUT # 5.7 103/ul Normal 1.4-6.5 [facility] Comment on above: Performed By: #### C BC #### [facility] [address] [address] [address] Ana Fish Neutrophils/100 WBC (Bld) 69.2 % Normal 43.0-75.0 [facility] Comment on above: Performed By: #### C BC #### [facility] [address] [place] [address] Dr. Ana Fish Platelet mean volume (Bld) [Entitic vol] 9.9 fL Normal 9.5-13.5 [facility] Comment on above: Performed By: #### C BC #### [facility] [address] [place] [address] Dr. Ana Fish PLT 273 103/ul Normal 150-450 [facility] Comment on above: Performed By: #### C BC #### [facility] [address] [place] [address] Dr. Ana Fish RBC 3.93 106/ul Critically low 4.20-5.40 [facility] Comment on above: Performed By: #### C BC #### [facility] [address] [place] [address] Dr. Ana Fish WBC 8.2 103/ul Normal 4.0-11.0 [facility] Comment on above: Performed By: #### C BC #### [facility] [address] [place] [address] Dr. Ana Fish FREE T4on 07-24-2022 Free T4 [Mass/Vol] 1.34 ng/dL Normal 0.76-1.46 [facility] Comment on above: Performed By: #### F T4 #### [facility] [address] [place] [address] Dr. Ana Fish LIPID PROFILEon 07-24-2022 CHOL-HDL RATIO NORM SEE BELOW Normal [facility] Comment on above: Result Comment: 3.3 - 4.4 LOW RISK 4.4 - 7.1 AVERAGE RISK 7.1 - 11.0 MODERATE RISK >11.0 HIGH RISK Performed By: #### L IPID, TSH, BNP, CMP #### [facility] [address] [place] [address] Dr. Ana Fish Cholesterol [Mass/Vol] 199 mg/dL Normal <=200 [facility] Comment on above: Performed By: #### L IPID, TSH, BNP, CMP #### [facility] [address] [place] [address] Dr. Ana Fish Cholesterol in HDL [Mass/Vol] 88 mg/dL Critically high 40-60 [facility] Comment on above: Performed By: #### L IPID, TSH, BNP, CMP #### [facility] [address] [place] [address] Dr. Ana Fish Cholesterol in LDL [Mass/Vol] 97.6 mg/dL Normal [facility] Comment on above: Performed By: #### L IPID, TSH, BNP, CMP #### [facility] [address] [place] [address] Dr. Ana Fish Cholesterol.total/C holesterol in HDL [Mass ratio] 2.3 {ratio} Normal [facility] Comment on above: Performed By: #### L IPID, TSH, BNP, CMP #### [facility] [address] [place] [address] Dr. Ana Fish HDL NORMAL > or = 60 mg/dl - LO W CARDIOVASCULAR RISK <40 mg/dl - HIGH CARDIOVASCULAR RISK Normal [facility] Comment on above: Performed By: #### L IPID, TSH, BNP, CMP #### [facility] [address] [place] [address] Dr. Ana Fish LDL CALC NORMAL SEE BELOW Normal [facility] Comment on above: Result Comment: <100 mg/dl OPTIMAL 100 - 129 mg/dl NEAR OR ABOVE OPTIMAL 130 - 159 mg/dl BORDERLINE HIGH 160 - 189 mg/dl HIGH >190 mg/dl VERY HIGH Performed By: #### L IPID, TSH, BNP, CMP #### [facility] [address] [place] [address] Dr. Ana Fish Triglyceride [Mass/Vol] 67 mg/dL Normal <=150 [facility] Comment on above: Performed By: #### L IPID, TSH, BNP, CMP #### [facility] [address] [address] [address] Ana Fish VLDL CALC 13.4 mg/dL Normal [facility] Comment on above: Performed By: #### L IPID, TSH, BNP, CMP #### [facility] [address] [address] [address] Ana Fish PROF 14(COMP METB)on 023 Albumin [Mass/Vol] 3.8 g/dL Normal 3.4-5.0 [facility] Comment on above: Performed By: #### L IPID, TSH, BNP, CMP #### [facility] [address] [place] [address] Dr. Ana Fish Albumin/Globulin [Mass ratio] 1.3 {ratio} Normal [facility] Comment on above: Performed By: #### L IPID, TSH, BNP, CMP #### [facility] [address] [place] [address] Dr. Ana Fish ALP [Catalytic activity/Vol] 81 U/L Normal 46-116 [facility] Comment on above: Performed By: #### L IPID, TSH, BNP, CMP #### [facility] [address] [place] [address] Dr. Ana Fish ALT [Catalytic activity/Vol] 16 U/L Normal 14-59 [facility] Comment on above: Performed By: #### L IPID, TSH, BNP, CMP #### [facility] [address] [place] [address] Dr. Ana Fish Anion gap [Moles/Vol] 10.3 mmol/L Normal [facility] Comment on above: Performed By: #### L IPID, TSH, BNP, CMP #### [facility] [address] [place] [address] Dr. Ana Fish AST [Catalytic activity/Vol] 18 U/L Normal 15-37 [facility] Comment on above: Performed By: #### L IPID, TSH, BNP, CMP #### [facility] [address] [place] [address] Dr. Ana Fish Bilirubin [Mass/Vol] 0.8 mg/dL Normal 0.2-1.0 [facility] Comment on above: Performed By: #### L IPID, TSH, BNP, CMP #### [facility] [address] [place] [address] Dr. Ana Fish Calcium [Mass/Vol] 9.3 mg/dL Normal 8.5-10.1 [facility] Comment on above: Performed By: #### L IPID, TSH, BNP, CMP #### [facility] [address] [place] [address] Dr. Ana Fish Chloride [Moles/Vol] 103 mmol/L Normal 98-107 [facility] Comment on above: Performed By: #### L IPID, TSH, BNP, CMP #### [facility] [address] [place] [address] Dr. Ana Fish CO2 [Moles/Vol] 32.1 mmol/L Critically high 21.0-32.0 [facility] Comment on above: Performed By: #### L IPID, TSH, BNP, CMP #### [facility] [address] [place] [address] Dr. Ana Fish Creatinine [Mass/Vol] 0.85 mg/dL Normal 0.55-1.02 [facility] Comment on above: Performed By: #### L IPID, TSH, BNP, CMP #### [facility] [address] [place] [address] Dr. Ana Fish EGFR-AF TURKISH >60 Normal >=60 [facility] Comment on above: Performed By: #### L IPID, TSH, BNP, CMP #### [facility] [address] [place] [address] Dr. Ana Fish EGFR-NON AF TURKISH >60 Normal >=60 [facility] Comment on above: Performed By: #### L IPID, TSH, BNP, CMP #### [facility] [address] [place] [address] Dr. Ana Fish Globulin (S) [Mass/Vol] 3.0 g/dL Normal [facility] Comment on above: Performed By: #### L IPID, TSH, BNP, CMP #### [facility] [address] [address] [address] Ana Fish Glucose [Mass/Vol] 101 mg/dL Normal 74-106 [facility] Comment on above: Performed By: #### L IPID, TSH, BNP, CMP #### [facility] [address] [address] [address] Ana Fish Potassium [Moles/Vol] 3.4 mmol/L Critically low 3.5-5.1 [facility] Comment on above: Performed By: #### L IPID, TSH, BNP, CMP #### [facility] [address] [place] [address] Dr. Ana Fish Protein [Mass/Vol] 6.8 g/dL Normal 6.4-8.2 [facility] Comment on above: Performed By: #### L IPID, TSH, BNP, CMP #### [facility] [address] [place] [address] Dr. Ana Fish Sodium [Moles/Vol] 142 mmol/L Normal 136-145 [facility] Comment on above: Performed By: #### L IPID, TSH, BNP, CMP #### [facility] [address] [place] [address] Dr. Ana Fish Urea nitrogen [Mass/Vol] 12.0 mg/dL Normal 7.0-18.0 [facility] Comment on above: Performed By: #### L IPID, TSH, BNP, CMP #### [facility] [address] [address] [address] Ana Fish Urea nitrogen/Creatinine [Mass ratio] 14.1 mg/mg Normal [facility] Comment on above: Performed By: #### L IPID, TSH, BNP, CMP #### [facility] [address] [address] [address] Ana Fish TSHon 07-24-2022 TSH 2.122 uIU/mL Normal 0.358-3.740 [facility] Comment on above: Performed By: #### L IPID, TSH, BNP, CMP #### [facility] [address] [address] [address] Ana Fish XR CHEST AP/PA AND LATon XR CHEST AP/PA AND LAT EXAMINATION: TWO VIEW XR CHEST AP/PA AND LAT, 02/03/2020 COMPARISON: Chest, 01/06/2020. 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 No acute cardiopulmonary disease. 2. Normal heart size. 3. 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 This is not significantly changed since the prior exam. 4. 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 No acute osseous abnormality. 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 History of cancer?:n Surgeries, chemotherapy, or radiation?:n Type of Exam?:Initial Additional signs and symptoms?:long-term current use of 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 drug ECG 12-LEADon 01-06-2020 Atrial Rate [facility] [place] [facility] P-R Interval [facility] Q-T Interval [facility] Q-T Interval (corrected) [facility] QRS Duration [facility] QTC Calculation (Bezet) [facility] R [place] [facility] [place] [facility] Ventricular Rate [facility] CHEST AP/PA AND LATon Interval development of mild reticular opacities in the right lower lung zone, suggestive of mild basilar fibrosis. Moderate compression deformity of T12 vertebral body. This is age indeterminate. Recommend further evaluation with cross-sectional imaging. 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 Recommend further evaluation with cross-sectional imaging. 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 Recommend further evaluation with cross-sectional imaging. [employer] Workstation ID: [id number] Dictated by: ARNOLDO HOUGH on ThuJan 06, 2020 4:42:45 PM EDT Transcribed by: RIAZ MURRAY on ThuJan 06, 2020 5:12:15 PM EDT Finalized by: ARNOLDO HOUGH on ThuJan 06, 2020 7:55:51 PM EDT [facility] Comment on above: Order Comment: [...] C408, C141, C48, C45, C119, C120 #### [facility] [place] [address] B/C Ratio 15.0 Ratio Normal [facility] Comment on above: Order Comment: Fasti ng: Unknown Performed By: #### C 80, C400, C408, C141, C48, C45, C119, C120 #### [facility] [address] [place] [address] [address] [place] [address] Calcium [Mass/Vol] 10.2 mg/dL Normal 8.5-10.5 [facility] Comment on above: Order Comment: Fasti ng: Unknown Performed By: #### C 80, C400, C408, C141, C48, C45, C119, C120 #### [facility] [address] [place] [address] [place] [address] Chloride [Moles/Vol] 101 mmol/L Normal 98-107 [facility] Comment on above: Order Comment: Fasti ng: Unknown Performed By: #### C 80, C400, C408, C141, C48, C45, C119, C120 #### [facility] [facility] [address] [place] [address] CO2 [Moles/Vol] 30.0 mmol/L Normal 22.0-30.0 [facility] Comment on above: Order Comment: Fasti ng: Unknown Performed By: #### C 80, C400, C408, C141, C48, C45, C119, C120 #### [facility] [address] [place] [address] [address] [place] [address] Creatinine [Mass/Vol] 1.0 mg/dL Normal 0.1-1.2 [facility] Comment on above: Order Comment: Fasti ng: Unknown Performed By: #### C 80, C400, C408, C141, C48, C45, C119, C120 #### [facility] [address] [place] [address] GFR/1.73 sq M.predicted MDRD (S/P/Bld) [Vol rate/Area] 54 mL/min per 1.73 Low >60 [facility] Comment on above: Order Comment: Fasti ng: Unknown Result Comment: The GFR estimate is not adjusted for race. If the patient's race is -Turkish, the GFR estimate must be multiplied by a factor of 1.21. Performed By: #### C 80, C400, C408, C141, C48, C45, C119, C120 #### [facility] [facility] [place] [address] Glucose [Mass/Vol] 91 mg/dL Normal 74-100 [facility] Comment on above: Order Comment: Fasti ng: Unknown Performed By: #### C 80, C400, C408, C141, C48, C45, C119, C120 #### [facility] [address] [place] [address] [address] [place] [address] Potassium [Moles/Vol] 3.9 mmol/L Normal 3.5-5.3 [facility] Comment on above: Order Comment: Fasti ng: Unknown Performed By: #### C 80, C400, C408, C141, C48, C45, C119, C120 #### [facility] [facility] [address] [place] [address] Sodium [Moles/Vol] 140 mmol/L Normal 135-145 [facility] Comment on above: Order Comment: Fasti ng: Unknown Performed By: #### C 80, C400, C408, C141, C48, C45, C119, C120 #### [facility] [address] [place] [address] Urea nitrogen [Mass/Vol] 15 mg/dL Normal 6-22 [facility] Comment on above: Order Comment: Fasti ng: Unknown Performed By: #### C 80, C400, C408, C141, C48, C45, C119, C120 #### [facility] [address] [place] [address] Free T4on 03-24-2019 Free T4 [Mass/Vol] 1.9 ng/dL High 0.7-1.8 [facility] Comment on above: Order Comment: Fasti ng: Unknown Performed By: #### C 80, C400, C408, C141, C48, C45, C119, C120 #### [facility] [facility] [address] [place] [address] TSHon 03-24-2019 TSH Qn 2.95 MIU/mL Normal 0.50-6.00 [facility] Comment on above: Performed By: #### C 80, C400, C408, C141, C48, C45, C119, C120 #### [facility] [facility] [address] [place] [address] Cholesterolon 02-10-2019 Cholesterol [Mass/Vol] 200 mg/dL High <200 [facility] Comment on above: Order Comment: Fasti ng: Unknown Performed By: #### C 80, C400, C408, C141, C48, C45, C119, C120 #### [facility] [facility] [address] [place] [address] Direct LDLon 02-10-2019 Cholesterol in LDL [Mass/Vol] 88 mg/dL Normal <130 [facility] Comment on above: Order Comment: Fasti ng: Unknown Result Comment: LDL goal dependent upon individual risk Performed By: #### C 80, C400, C408, C141, C48, C45, C119, C120 #### [facility] [address] [place] [address] HDLon 02-10-2019 Cholesterol in HDL [Mass/Vol] 90 mg/dL Normal >50 [facility] Comment on above: Order Comment: Fasti ng: Unknown Performed By: #### C 80, C400, C408, C141, C48, C45, C119, C120 #### [facility] [address] [facility] [address] [place] [address] Triglycerideon 02-10-2019 Triglyceride [Mass/Vol] 119 mg/dL Normal <150 [facility] Comment on above: Order Comment: Fasti ng: Unknown Performed By: #### C 80, C400, C408, C141, C48, C45, C119, C120 #### [facility] [address] [facility] [address] [place] [address] B12/Folateon 02-09-2019 Cobalamin (Vitamin B12) [Mass/Vol] 989 pg/mL High 239-931 [facility] Comment on above: Order Comment: Fasti ng: Unknown Performed By: #### C 80, C400, C408, C141, C48, C45, C119, C120 #### [facility] [address] [facility] [place] [address] Folate 8.12 ng/mL Normal 2.80-20.00 [facility] Comment [...] C408, C141, C48, C45, C119, C120 #### [facility] [address] [place] [address] Basic Metabolic Panelon 01-23 Anion gap [Moles/Vol] 10.00 mmol/L Normal 8.00-16.00 [facility] Comment on above: Order Comment: Items in this order include: Basic Metabolic Panel , Iron and TIBC, Hepatic Panel, Ferritin, Free T4, TSH, B12/Folate, Vit D 25 [place] (Total), CBC with differential, HgbA1C, Urine, Random, Albumin/Crea , , , , , Testing Performed By: [facility] [address] [place] [address]. [place] [address] Dr. Irma Shahid, Procurement Professional Performed By: #### C 406, C3763, C1573, C80, C400, C408, C409, C136, C48, C45, C215 #### [facility] [address] [place] [address] [address] [place] [address] B/C Ratio 16.0 Ratio Normal [facility] Comment on above: Order Comment: Items in this order include: Basic Metabolic Panel , Iron and TIBC, Hepatic Panel, Ferritin, Free T4, TSH, B12/Folate, Vit D 25 [place] (Total), CBC with differential, HgbA1C, Urine, Random, Albumin/Crea , , , , , Testing Performed By: [facility] [address] [place] [address]. [place] [address] Dr. Irma Shahid, Procurement Professional Performed By: #### C 406, C3763, C1573, C80, C400, C408, C409, C136, C48, C45, C215 #### [facility] [address] [place] [address] [address] [place] [address] Calcium [Mass/Vol] 9.4 mg/dL Normal 8.5-10.5 [facility] Comment on above: Order Comment: Items in this order include: Basic Metabolic Panel , Iron and TIBC, Hepatic Panel, Ferritin, Free T4, TSH, B12/Folate, Vit D 25 [place] (Total), CBC with differential, HgbA1C, Urine, Random, Albumin/Crea , , , , , Testing Performed By: [facility] [address] [place] [address]. [place] [address] Dr. Irma Shahid, Procurement Professional Performed By: #### C 406, C3763, C1573, C80, C400, C408, C409, C136, C48, C45, C215 #### [facility] [address] [place] [address] [address] [place] [address] Chloride [Moles/Vol] 101 mmol/L Normal 98-107 [facility] Comment on above: Order Comment: Items in this order include: Basic Metabolic Panel , Iron and TIBC, Hepatic Panel, Ferritin, Free T4, TSH, B12/Folate, Vit D 25 [place] (Total), CBC with differential, HgbA1C, Urine, Random, Albumin/Crea , , , , , Testing Performed By: [facility] [address] [place], [place] [id number] Dr. Irma Shahid, Procurement Professional Performed By: #### C 406, C3763, C1573, C80, C400, C408, C409, C136, C48, C45, C215 #### [facility] [address] [place] [address] [place] [address] CO2 [Moles/Vol] 27.0 mmol/L Normal 22.0-30.0 [facility] Comment on above: Order Comment: Items in this order include: Basic Metabolic Panel , Iron and TIBC, Hepatic Panel, Ferritin, Free T4, TSH, B12/Folate, Vit D 25 [place] (Total), CBC with differential, HgbA1C, Urine, Random, Albumin/Crea , , , , , Testing Performed By: [facility] [address] [place] [address] [address] Irma Shahid, Procurement Professional Performed By: #### C 406, C3763, C1573, C80, C400, C408, C409, C136, C48, C45, C215 #### [facility] [address] [place] [address] [address] [place] [address] Creatinine [Mass/Vol] 1.5 mg/dL High 0.1-1.2 [facility] Comment on above: Order Comment: Items in this order include: Basic Metabolic Panel , Iron and TIBC, Hepatic Panel, Ferritin, Free T4, TSH, B12/Folate, Vit D 25 [place] (Total), CBC with differential, HgbA1C, Urine, Random, Albumin/Crea , , , , , Testing Performed By: [facility] [address] [place] [address]. [place] [address] Dr. Irma Shahid, Procurement Professional Performed By: #### C 406, C3763, C1573, C80, C400, C408, C409, C136, C48, C45, C215 #### [facility] [address] [place] [address] GFR/1.73 sq M.predicted MDRD (S/P/Bld) [Vol rate/Area] 34 mL/min per 1.73 Low >60 [facility] Comment on above: Order Comment: Items in this order include: Basic Metabolic Panel , Iron and TIBC, Hepatic Panel, Ferritin, Free T4, TSH, B12/Folate, Vit D 25 [place] (Total), CBC with differential, HgbA1C, Urine, Random, Albumin/Crea , , , , , Testing Performed By: [facility] [address] [place] [address] [address] Irma Shahid, Procurement Professional Result Comment: The GFR estimate is not adjusted for race. If the patient's race is -Turkish, the GFR estimate must be multiplied by a factor of 1.21. Performed By: #### C 406, C3763, C1573, C80, C400, C408, C409, C136, C48, C45, C215 #### [facility] [address] [place] [address] Glucose [Mass/Vol] 93 mg/dL Normal 74-100 [facility] Comment on above: Order Comment: Items in this order include: Basic Metabolic Panel , Iron and TIBC, Hepatic Panel, Ferritin, Free T4, TSH, B12/Folate, Vit D 25 [place] (Total), CBC with differential, HgbA1C, Urine, Random, Albumin/Crea , , , , , Testing Performed By: [facility] [address] [place] [address]. [place] [address] Dr. Irma Shahid, Procurement Professional Performed By: #### C 406, C3763, C1573, C80, C400, C408, C409, C136, C48, C45, C215 #### [facility] [address] [place] [address] Potassium [Moles/Vol] 4.8 mmol/L Normal 3.5-5.3 [facility] Comment on above: Order Comment: Items in this order include: Basic Metabolic Panel , Iron and TIBC, Hepatic Panel, Ferritin, Free T4, TSH, B12/Folate, Vit D 25 [place] (Total), CBC with differential, HgbA1C, Urine, Random, Albumin/Crea , , , , , Testing Performed By: [facility] [address] [place] [address] Dr. Irma Shahid, Procurement Professional Performed By: #### C 406, C3763, C1573, C80, C400, C408, C409, C136, C48, C45, C215 #### [facility], [facility]. [address] [place] [address] [address] [place] [address] Sodium [Moles/Vol] 138 mmol/L Normal 135-145 [facility] Comment on above: Order Comment: Items in this order include: Basic Metabolic Panel , Iron and TIBC, Hepatic Panel, Ferritin, Free T4, TSH, B12/Folate, Vit D 25 [place] (Total), CBC with differential, HgbA1C, Urine, Random, Albumin/Crea , , , , , Testing Performed By: [facility] [address] [place] [address]. [place] [address] Dr. Irma Shahid, Procurement Professional Performed By: #### C 406, C3763, C1573, C80, C400, C408, C409, C136, C48, C45, C215 #### [facility], [facility]. [address] [place] [address] Urea nitrogen [Mass/Vol] 24 mg/dL High 6-22 [facility] Comment on above: Order Comment: Items in this order include: Basic Metabolic Panel , Iron and TIBC, Hepatic Panel, Ferritin, Free T4, TSH, B12/Folate, Vit D 25 [place] (Total), CBC with differential, HgbA1C, Urine, Random, Albumin/Crea , , , , , Testing Performed By: [facility] [address] [place] [address]. [place] [id number] Dr. Irma Shahid, Procurement Professional Performed By: #### C 406, C3763, C1573, C80, C400, C408, C409, C136, C48, C45, C215 #### [facility] [place] [address] CBC with differentialon 01-23 Basophils (Bld) [#/Vol] 0.0 K CUMM Normal 0.0-0.2 [facility] Comment on above: Order Comment: Items in this order include: Basic Metabolic Panel , Iron and TIBC, Hepatic Panel, Ferritin, Free T4, TSH, B12/Folate, Vit D 25 [place] (Total), CBC with differential, HgbA1C, Urine, Random, Albumin/Crea , , , , , Testing Performed By: [facility] [address] [place] [address]. [place] [address] Dr. Irma Shahid, Procurement Professional Performed By: #### C 406, C3763, C1573, C80, C400, C408, C409, C136, C48, C45, C215 #### [facility] [place] [address] Basophils/100 WBC (Bld) 0.4 % Normal 0.0-3.0 [facility] Comment on above: Order Comment: Items in this order include: Basic Metabolic Panel , Iron and TIBC, Hepatic Panel, Ferritin, Free T4, TSH, B12/Folate, Vit D 25 [place] (Total), CBC with differential, HgbA1C, Urine, Random, Albumin/Crea , , , , , Testing Performed By: [facility] [address] [place] [address]. [place] [address] Dr. Irma Shahid, Procurement Professional Performed By: #### C 406, C3763, C1573, C80, C400, C408, C409, C136, C48, C45, C215 #### [facility] [facility] [address] [place] [address] Eosinophils (Bld) [#/Vol] 0.1 K CUMM Normal 0.0-0.4 [facility] Comment on above: Order Comment: Items in this order include: Basic Metabolic Panel , Iron and TIBC, Hepatic Panel, Ferritin, Free T4, TSH, B12/Folate, Vit D 25 [place] (Total), CBC with differential, HgbA1C, Urine, Random, Albumin/Crea , , , , , Testing Performed By: [facility] [address] [place], [place] [address] Dr. Irma Shahid, Procurement Professional Performed By: #### C 406, C3763, C1573, C80, C400, C408, C409, C136, C48, C45, C215 #### [facility] [facility] [address] [place] [address] Eosinophils/100 WBC (Bld) 1.5 % Normal 0.0-7.0 [facility] Comment on above: Order Comment: Items in this order include: Basic Metabolic Panel , Iron and TIBC, Hepatic Panel, Ferritin, Free T4, TSH, B12/Folate, Vit D 25 [place] (Total), CBC with differential, HgbA1C, Urine, Random, Albumin/Crea , , , , , Testing Performed By: [facility] [address] [place] [address] [address] [address] Irma Shahid, Procurement Professional Performed By: #### C 406, C3763, C1573, C80, C400, C408, C409, C136, C48, C45, C215 #### [facility] [facility] [facility] [address] [place] [address] Erythrocyte distribution width (RBC) [Ratio] 14.4 % Normal 11.5-15.5 [facility] Comment on above: Order Comment: Items in this order include: Basic Metabolic Panel , Iron and TIBC, Hepatic Panel, Ferritin, Free T4, TSH, B12/Folate, Vit D 25 [place] (Total), CBC with differential, HgbA1C, Urine, Random, Albumin/Crea , , , , , Testing Performed By: [facility] [address] [place] [address] Dr. Irma Shahid, Procurement Professional Performed By: #### C 406, C3763, C1573, C80, C400, C408, C409, C136, C48, C45, C215 #### [facility] [address] [place] [address] [address] [place] [id number] Hematocrit (Bld) [Volume fraction] 38.4 % Normal 37.0-47.0 [facility] Comment on above: Order Comment: Items in this order include: Basic Metabolic Panel , Iron and TIBC, Hepatic Panel, Ferritin, Free T4, TSH, B12/Folate, Vit D 25 [place] (Total), CBC with differential, HgbA1C, Urine, Random, Albumin/Crea , , , , , Testing Performed By: [facility] [address] [place] [place] [address] Dr. Irma Shahid, Procurement Professional Performed By: #### C 406, C3763, C1573, C80, C400, C408, C409, C136, C48, C45, C215 #### [facility], [facility]. [address] [place] [address] [address] [place] [id number] Hemoglobin (Bld) [Mass/Vol] 12.7 g/dL Normal 11.5-15.5 [facility] Comment on above: Order Comment: Items in this order include: Basic Metabolic Panel , Iron and TIBC, Hepatic Panel, Ferritin, Free T4, TSH, B12/Folate, Vit D 25 [place] (Total), CBC with differential, HgbA1C, Urine, Random, Albumin/Crea , , , , , Testing Performed By: [facility] [address] [place] [address] Dr. Irma Shahid, Procurement Professional Performed By: #### C 406, C3763, C1573, C80, C400, C408, C409, C136, C48, C45, C215 #### [facility] [address] [place] [address] ImmGrn # 0.0 K CUMM Normal 0.0-0.3 [facility] Comment on above: Order Comment: Items in this order include: Basic Metabolic Panel , Iron and TIBC, Hepatic Panel, Ferritin, Free T4, TSH, B12/Folate, Vit D 25 [place] (Total), CBC with differential, HgbA1C, Urine, Random, Albumin/Crea , , , , , Testing Performed By: [facility] [address] [place] [address]. [place] [address] Dr. Irma Shahid, Procurement Professional Performed By: #### C 406, C3763, C1573, C80, C400, C408, C409, C136, C48, C45, C215 #### [facility] [address] [place] [address] [address] [place] [address] ImmGrn % 0.3 % Normal 0.0-3.0 [facility] Comment on above: Order Comment: Items in this order include: Basic Metabolic Panel , Iron and TIBC, Hepatic Panel, Ferritin, Free T4, TSH, B12/Folate, Vit D 25 [place] (Total), CBC with differential, HgbA1C, Urine, Random, Albumin/Crea , , , , , Testing Performed By: [facility] [address] [place] [address]. [place] [address] Dr. Irma Shahid, Procurement Professional Performed By: #### C 406, C3763, C1573, C80, C400, C408, C409, C136, C48, C45, C215 #### [facility] [address] [place] [address] [address] [place] [address] Lymphocytes (Bld) [#/Vol] 1.2 K CUMM Normal 0.7-4.5 [facility] Comment on above: Order Comment: Items in this order include: Basic Metabolic Panel , Iron and TIBC, Hepatic Panel, Ferritin, Free T4, TSH, B12/Folate, Vit D 25 [place] (Total), CBC with differential, HgbA1C, Urine, Random, Albumin/Crea , , , , , Testing Performed By: [facility] [address] [place] [address] Dr. Irma Shahid, Procurement Professional Performed By: #### C 406, C3763, C1573, C80, C400, C408, C409, C136, C48, C45, C215 #### [facility] [address] [place] [address] [address] [place] [id number] Lymphocytes/100 WBC (Bld) 13.6 % Low 14.0-46.0 [facility] Comment on above: Order Comment: Items in this order include: Basic Metabolic Panel , Iron and TIBC, Hepatic Panel, Ferritin, Free T4, TSH, B12/Folate, Vit D 25 [place] (Total), CBC with differential, HgbA1C, Urine, Random, Albumin/Crea , , , , , Testing Performed By: [facility] [address] [place] [address] Dr. Irma Shahid, Procurement Professional Performed By: #### C 406, C3763, C1573, C80, C400, C408, C409, C136, C48, C45, C215 #### [facility] [address] [place] [address] [address] [place] [address] MCH (RBC) [Entitic mass] 31.3 pg High 27.0-31.0 [facility] Comment on above: Order Comment: Items in this order include: Basic Metabolic Panel , Iron and TIBC, Hepatic Panel, Ferritin, Free T4, TSH, B12/Folate, Vit D 25 [place] (Total), CBC with differential, HgbA1C, Urine, Random, Albumin/Crea , , , , , Testing Performed By: [facility] [address] [place], [place] [address] Dr. Irma Shahid, Procurement Professional Performed By: #### C 406, C3763, C1573, C80, C400, C408, C409, C136, C48, C45, C215 #### [facility] [address] [place] [address] [address] [place] [address] MCHC (RBC) [Mass/Vol] 33.1 g/dL Normal 32.0-36.0 [facility] Comment on above: Order Comment: Items in this order include: Basic Metabolic Panel , Iron and TIBC, Hepatic Panel, Ferritin, Free T4, TSH, B12/Folate, Vit D 25 [place] (Total), CBC with differential, HgbA1C, Urine, Random, Albumin/Crea , , , , , Testing Performed By: [facility] [address] [place] [address]. [place] [id number] Dr. Irma Shahid, Procurement Professional Performed By: #### C 406, C3763, C1573, C80, C400, C408, C409, C136, C48, C45, C215 #### [facility] [address] [place] [address] [address] [place] [address] MCV (RBC) [Entitic vol] 94.6 fL Normal 78.0-100.0 [facility] Comment on above: Order Comment: Items in this order include: Basic Metabolic Panel , Iron and TIBC, Hepatic Panel, Ferritin, Free T4, TSH, B12/Folate, Vit D 25 [place] (Total), CBC with differential, HgbA1C, Urine, Random, Albumin/Crea , , , , , Testing Performed By: [facility] [address] [place] [address]. [place] [address] Dr. Irma Shahid, Procurement Professional Performed By: #### C 406, C3763, C1573, C80, C400, C408, C409, C136, C48, C45, C215 #### [facility] [address] [place] [address] [address] [place] [address] Monocytes (Bld) [#/Vol] 0.8 K CUMM Normal 0.1-1.0 [facility] Comment on above: Order Comment: Items in this order include: Basic Metabolic Panel , Iron and TIBC, Hepatic Panel, Ferritin, Free T4, TSH, B12/Folate, Vit D 25 [place] (Total), CBC with differential, HgbA1C, Urine, Random, Albumin/Crea , , , , , Testing Performed By: [facility] [address] [place] [address]. [place] [id number] Dr. Irma Shahid, Procurement Professional Performed By: #### C 406, C3763, C1573, C80, C400, C408, C409, C136, C48, C45, C215 #### [facility] [address] [place] [address] [address] [place] [address] Monocytes/100 WBC (Bld) 8.7 % Normal 4.0-13.0 [facility] Comment on above: Order Comment: Items in this order include: Basic Metabolic Panel , Iron and TIBC, Hepatic Panel, Ferritin, Free T4, TSH, B12/Folate, Vit D 25 [place] (Total), CBC with differential, HgbA1C, Urine, Random, Albumin/Crea , , , , , Testing Performed By: [facility] [address] [place] [address] Dr. Irma Shahid, Procurement Professional Performed By: #### C 406, C3763, C1573, C80, C400, C408, C409, C136, C48, C45, C215 #### [facility] [address] [place] [address] [place] [address] Neutrophils (Bld) [#/Vol] 6.8 K CUMM Normal 1.8-7.8 [facility] Comment on above: Order Comment: Items in this order include: Basic Metabolic Panel , Iron and TIBC, Hepatic Panel, Ferritin, Free T4, TSH, B12/Folate, Vit D 25 [place] (Total), CBC with differential, HgbA1C, Urine, Random, Albumin/Crea , , , , , Testing Performed By: [facility] [address] [place] [address] [address] [address] Irma Shahid, Procurement Professional Performed By: #### C 406, C3763, C1573, C80, C400, C408, C409, C136, C48, C45, C215 #### [facility] [address] [place] [address] [address] [place] [address] Neutrophils/100 WBC (Bld) 75.5 % High 40.0-74.0 [facility] Comment on above: Order Comment: Items in this order include: Basic Metabolic Panel , Iron and TIBC, Hepatic Panel, Ferritin, Free T4, TSH, B12/Folate, Vit D 25 [place] (Total), CBC with differential, HgbA1C, Urine, Random, Albumin/Crea , , , , , Testing Performed By: [facility] [address] [place], [place] [address] Dr. Irma Shahid, Procurement Professional Performed By: #### C 406, C3763, C1573, C80, C400, C408, C409, C136, C48, C45, C215 #### [facility] [address] [place] [address] [address] [place] [address] Platelet mean volume (Bld) [Entitic vol] 10.9 fL Normal 8.9-12.6 [facility] Comment on above: Order Comment: Items in this order include: Basic Metabolic Panel , Iron and TIBC, Hepatic Panel, Ferritin, Free T4, TSH, B12/Folate, Vit D 25 [place] (Total), CBC with differential, HgbA1C, Urine, Random, Albumin/Crea , , , , , Testing Performed By: [facility] [address] [place] [address] [address] [address] Irma Shahid, Procurement Professional Performed By: #### C 406, C3763, C1573, C80, C400, C408, C409, C136, C48, C45, C215 #### [facility] [address] [place] [address] [address] [place] [address] Platelets (Bld) [#/Vol] 283 K CUMM Normal 130-400 [facility] Comment on above: Order Comment: Items in this order include: Basic Metabolic Panel , Iron and TIBC, Hepatic Panel, Ferritin, Free T4, TSH, B12/Folate, Vit D 25 [place] (Total), CBC with differential, HgbA1C, Urine, Random, Albumin/Crea , , , , , Testing Performed By: [facility] [address] [place] [address] Dr. Irma Shahid, Procurement Professional Performed By: #### C 406, C3763, C1573, C80, C400, C408, C409, C136, C48, C45, C215 #### [facility] [address] [place] [address] RBC (Bld) [#/Vol] 4.06 M CUMM Normal 3.80-5.10 [facility] Comment on above: Order Comment: Items in this order include: Basic Metabolic Panel , Iron and TIBC, Hepatic Panel, Ferritin, Free T4, TSH, B12/Folate, Vit D 25 [place] (Total), CBC with differential, HgbA1C, Urine, Random, Albumin/Crea , , , , , Testing Performed By: [facility] [address] [place] [address]. [place] [address] Dr. Irma Shahid, Procurement Professional Performed By: #### C 406, C3763, C1573, C80, C400, C408, C409, C136, C48, C45, C215 #### [facility] [address] [place] [address] WBC (Bld) [#/Vol] 9.1 K CUMM Normal 3.8-10.6 [facility] Comment on above: Order Comment: Items in this order include: Basic Metabolic Panel , Iron and TIBC, Hepatic Panel, Ferritin, Free T4, TSH, B12/Folate, Vit D 25 [place] (Total), CBC with differential, HgbA1C, Urine, Random, Albumin/Crea , , , , , Testing Performed By: [facility] [address] [place] [address]. [place] [address] Dr. Irma Shahid, Procurement Professional Performed By: #### C 406, C3763, C1573, C80, C400, C408, C409, C136, C48, C45, C215 #### [facility] [address] [place] [address] Culture, Urineon 02-09-2019 RPT Microbiology results Abnormal [facility] Comment on above: Order Comment: Fasti ng: Unknown Result Comment: Elda l Result: Less than 10,000 CFU/mL of 2 or more organisms present. This usually indicates vaginal, urethral and/or skin contamination. ID and sensitivities will not be performed. Performed By: #### C 80, C400, C408, C141, C48, C45, C119, C120 #### [facility] [address] [place] [address] Ferritinon 02-09-2019 Ferritin [Mass/Vol] 103.7 ng/mL Normal 15.0-200.0 [facility] Comment on above: Order Comment: Fasti ng: Unknown Performed By: #### C 80, C400, C408, C141, C48, C45, C119, C120 #### [facility] [address] [place] [address] Free T4on 02-09-2019 Free T4 [Mass/Vol] 2.0 ng/dL High 0.7-1.8 [facility] Comment on above: Performed By: #### C 80, C400, C408, C141, C48, C45, C119, C120 #### [facility] [address] [place] [address] Hepatic Panelon 02-09-2019 Albumin [Mass/Vol] 4.6 g/dL Normal 3.5-5.0 [facility] Comment on above: Performed By: #### C 80, C400, C408, C141, C48, C45, C119, C120 #### [facility] [address] [place] [address] Alk Phos 57 U/L Normal 23-159 [facility] Comment on above: Performed By: #### C 80, C400, C408, C141, C48, C45, C119, C120 #### [facility] [address] [place] [address] ALT [Catalytic activity/Vol] 27 U/L Normal 10-52 [facility] Comment on above: Performed By: #### C 80, C400, C408, C141, C48, C45, C119, C120 #### [facility] [address] [place] [address] AST [Catalytic activity/Vol] 29 U/L Normal 11-43 [facility] Comment on above: Performed By: #### C 80, C400, C408, C141, C48, C45, C119, C120 #### [facility] [address] [address] [place] [address] Bili (Direct) 0.0 mg/dL Normal 0.0-0.3 [facility] Comment on above: Performed By: #### C 80, C400, C408, C141, C48, C45, C119, C120 #### [facility] [address] [place] [address] Bili (Indirect) 0.3 mg/dL Normal 0.0-1.1 [facility] Comment on above: Performed By: #### C 80, C400, C408, C141, C48, C45, C119, C120 #### [facility] [address] [place] [address] Bilirubin [Mass/Vol] 0.8 mg/dL Normal 0.2-1.3 [facility] Comment on above: Performed By: #### C 80, C400, C408, C141, C48, C45, C119, C120 #### [facility] [address] [place] [address] Protein [Mass/Vol] 6.9 g/dL Normal 6.3-8.4 [facility] Comment on above: Performed By: #### C 80, C400, C408, C141, C48, C45, C119, C120 #### [facility] [address] [place] [address] [id number] 02-09-2019 HbA1c (Bld) [Mass fraction] 5.3 % Normal <5.7 [facility] Comment on above: Order Comment: Fasti ng: Unknown Result Comment: Refe rence Interval: Normal: below 5.7%. Prediabetes: 5.7% to 6.4%. Diabetes: 6.5% or above. Performed By: #### C 80, C400, C408, C141, C48, C45, C119, C120 #### [facility] [address] [place] [address] Iron and TIBCon 02-09-2019 % Saturation 36 % Normal 20-55 [facility] Comment on above: Order Comment: Fasti ng: Unknown Performed By: #### C 80, C400, C408, C141, C48, C45, C119, C120 #### [facility] [address] [place] [address] Iron [Mass/Vol] 97 ug/dL Normal 37-170 [facility] Comment on above: Order Comment: Fasti ng: Unknown Performed By: #### C 80, C400, C408, C141, C48, C45, C119, C120 #### [facility] [address] [place] [address] TIBC 271 ug/dL Normal 265-497 [facility] Comment on above: Order Comment: Fasti ng: Unknown Performed By: #### C 80, C400, C408, C141, C48, C45, C119, C120 #### [facility] [address] [place] [address] TSHon 02-09-2019 TSH Qn 1.54 MIU/mL Normal 0.50-6.00 [facility] Comment on above: Order Comment: Fasti ng: Unknown Performed By: #### C 80, C400, C408, C141, C48, C45, C119, C120 #### [facility] [address] [place] [address] Urine, Random, Albumin/Creao n 02-09-2019 Albumin DL <= 20 mg/L (U) [Mass/Vol] 2.6 mg/dL High 0.0-1.6 [facility] Comment on above: Order Comment: Fasti ng: Unknown Performed By: #### C 80, C400, C408, C141, C48, C45, C119, C120 #### [facility] [address] [place] [address] Creatinine (U) [Mass/Vol] 179.0 mg/dL Normal 28.0-217.0 [facility] Comment on above: Order Comment: Fasti ng: Unknown Performed By: #### C 80, C400, C408, C141, C48, C45, C119, C120 #### [facility] [address] [place] [address] Urine Microalb/ Creat Ratio 14.5 mcg/mg creat [...] C408, C141, C48, C45, C119, C120 #### [facility] [address] [place] [address] Vit D 25 [place] (Total)on 2018 Vit D 25 [place] (Total) 34.3 ng/ml Normal 31.0-100.0 [facility] Comment on above: Order Comment: Fasti ng: Unknown Result Comment: Defi ciency <10 ng/ml Insufficiency 10-30 ng/ml Sufficiency 31-100 ng/ml Toxicity >100 ng/ml Performed By: #### C 80, C400, C408, C141, C48, C45, C119, C120 #### [facility] [address] [place] [address] HI Mammo Digital Screening b ilat (NB)on 10-06-2018 HI Mammo Digital Screening bilat (NB) EXAMINATION TYPE: HI Mammo Digital Screening bilat (NB) DATE OF EXAM : 10/06/2018 2:34 PM PATIENT HISTORY: Menarche at age 14. Patient has no children. Postmenopausal. Maternal aunt had breast cancer at or over age 50. PRIOR STUDIES: 03/30/2007, 03/02/2009, 12/04/2010, 10/05/2012, 07/10/2015 REASON FOR STUDY: Breast Screening. TECHNIQUE: Digital mammography views were obtained. Computer-aided detection utilizing SquareknotCAD reader has been performed. BREAST COMPOSITION: The breast tissue is almost entirely fatty FINDINGS: There are no suspicious abnormalities. There has been no significant interval change. IMPRESSION: No mammographic evidence for malignancy. BI-RADS Code: 1-Negative RECOMMENDATION: 1. Screening Mammogram in 1 year [facility] thanks you for the opportunity to care for your patient. Workstation ID: [id number] FINAL REPORT Dictated By: Becka Valentine MD 10/06/2018 14:45 Assigned Physician: Becka Valentine MD Reviewed and Electronically Signed By: Becka Valentine MD 10/06/2018 14:45 Transcribed by: PIERRE 10/06/2018 14:45 Technologist: LRS Normal [facility] XR Bone Density DXA Axial [facility] 10-06-2018 DXA Skeletal system Views for bone density == Bone Density Report == Name: DEBRA RODRIGUEZ Age: 77 Sex: Female Ethnicity: White Date of : 1940 -- Indication: postmenopausal osteoporosis; height loss; inflammatory bowel disease; hysterectomy; Referring Provider: NIA ALCARAZ Study: Bone densitometry was performed. Exam Date: October 06, 2018 Accession number: [id number] Bone Density: -- Region BMD T-score Z-score [...] cause or contribute to bone loss. The [place] [employer]ocrinologists (AACE) and National [...] 10/08/2018 08:25 10/08/2018 08:21 Technologist: JONAS Golden [facility] ECG 12-LEADon 09-29-2018 Atrial Rate [facility] [place] [facility] P-R Interval [facility] Q-T Interval [facility] Q-T Interval (corrected) [facility] QRS Duration [facility] QTC Calculation (Bezet) [facility] R [place] [facility] T [place] [facility] Ventricular Rate [facility] Basic Metabolic Panelon 06-25 Anion gap [Moles/Vol] 8.50 mmol/L Normal 8.00-16.00 [facility] Comment on above: Order Comment: Fasti ng: Unknown Performed By: #### C 80, C400, C408, C141, C48, C45, C119, C120 #### [facility] [address] [place] [address] B/C Ratio 15.0 Ratio Normal [facility] Comment on above: Order Comment: Fasti ng: Unknown Performed By: #### C 80, C400, C408, C141, C48, C45, C119, C120 #### [facility] [address] [place] [address] Calcium [Mass/Vol] 9.9 mg/dL Normal 8.5-10.5 [facility] Comment on above: Order Comment: Fasti ng: Unknown Performed By: #### C 80, C400, C408, C141, C48, C45, C119, C120 #### [facility] [facility] [address] [place] [address] Chloride [Moles/Vol] 102 mmol/L Normal 98-107 [facility] Comment on above: Order Comment: Fasti ng: Unknown Performed By: #### C 80, C400, C408, C141, C48, C45, C119, C120 #### [facility] [address] [place] [address] [place] [address] CO2 [Moles/Vol] 27.5 mmol/L Normal 22.0-30.0 [facility] Comment on above: Order Comment: Fasti ng: Unknown Performed By: #### C 80, C400, C408, C141, C48, C45, C119, C120 #### [facility] [address] [place] [address] [place] [address] Creatinine [Mass/Vol] 1.0 mg/dL Normal 0.1-1.2 [facility] Comment on above: Order Comment: Fasti ng: Unknown Performed By: #### C 80, C400, C408, C141, C48, C45, C119, C120 #### [facility] [address] [place] [address] [place] [address] GFR/1.73 sq M.predicted MDRD (S/P/Bld) [Vol rate/Area] 54 mL/min per 1.73 Low >60 [facility] Comment on above: Order Comment: Fasti ng: Unknown Result Comment: The GFR estimate is not adjusted for race. If the patient's race is -Turkish, the GFR estimate must be multiplied by a factor of 1.21. Performed By: #### C 80, C400, C408, C141, C48, C45, C119, C120 #### [facility] [address] [place] [address] [address] [place] [address] Glucose [Mass/Vol] 91 mg/dL Normal 74-100 [facility] Comment on above: Order Comment: Fasti ng: Unknown Performed By: #### C 80, C400, C408, C141, C48, C45, C119, C120 #### [facility] [address] [place] [address] Potassium [Moles/Vol] 3.8 mmol/L Normal 3.5-5.3 [facility] Comment on above: Order Comment: Fasti ng: Unknown Performed By: #### C 80, C400, C408, C141, C48, C45, C119, C120 #### [facility] [facility] [facility] [address] [place] [address] Sodium [Moles/Vol] 138 mmol/L Normal 135-145 [facility] Comment on above: Order Comment: Fasti ng: Unknown Performed By: #### C 80, C400, C408, C141, C48, C45, C119, C120 #### [facility] [place] [address] Urea nitrogen [Mass/Vol] 15 mg/dL Normal 6-22 [facility] Comment on above: Order Comment: Fasti ng: Unknown Performed By: #### C 80, C400, C408, C141, C48, C45, C119, C120 #### [facility] [facility] [facility] [address] [place] [address] Direct LDLon 07-07-2018 Cholesterol in LDL [Mass/Vol] [...] C408, C141, C48, C45, C119, C120 #### [facility] [address] [place] [address] Free T4on 07-07-2018 Free T4 [Mass/Vol] 1.5 ng/dL Normal 0.7-1.8 [facility] Comment on above: Order Comment: Items in this order include: Free T4, Direct LDL , Urine, Random, Albumin/Crea , HDL, TSH, Triglyceride, Basic Metabolic Panel , Hepatic Panel, , Fasting: Unknown Performed By: #### C 80, C400, C408, C141, C48, C45, C119, C120 #### [facility] [address] [place] [address] HDLon 07-07-2018 Cholesterol in HDL [Mass/Vol] 109 mg/dL Normal >50 [facility] Comment on above: Order Comment: Items in this order include: Free T4, Direct LDL , Urine, Random, Albumin/Crea , HDL, TSH, Triglyceride, Basic Metabolic Panel , Hepatic Panel, , Fasting: Unknown Performed By: #### C 80, C400, C408, C141, C48, C45, C119, C120 #### [facility] [address] [place] [address] Hepatic Panelon 07-07-2018 Albumin [Mass/Vol] 4.9 g/dL Normal 3.5-5.0 [facility] Comment on above: Order Comment: Fasti ng: Unknown Performed By: #### C 80, C400, C408, C141, C48, C45, C119, C120 #### [facility] [address] [facility] [place] [address] Alk Phos 79 U/L Normal 23-159 [facility] Comment on above: Order Comment: Fasti ng: Unknown Performed By: #### C 80, C400, C408, C141, C48, C45, C119, C120 #### [facility] [address] [place] [address] ALT [Catalytic activity/Vol] 21 U/L Normal 10-52 [facility] Comment on above: Order Comment: Fasti ng: Unknown Performed By: #### C 80, C400, C408, C141, C48, C45, C119, C120 #### [facility] [facility] [facility] [address] [place] [address] AST [Catalytic activity/Vol] 24 U/L Normal 11-43 [facility] Comment on above: Order Comment: Fasti ng: Unknown Performed By: #### C 80, C400, C408, C141, C48, C45, C119, C120 #### [facility] [address] [place] [address] [address] [place] [address] Bili (Direct) 0.0 mg/dL Normal 0.0-0.3 [facility] Comment on above: Order Comment: Fasti ng: Unknown Performed By: #### C 80, C400, C408, C141, C48, C45, C119, C120 #### [facility] [address] [place] [address] [address] [place] [address] Bili (Indirect) 0.3 mg/dL Normal 0.0-1.1 [facility] Comment on above: Order Comment: Fasti ng: Unknown Performed By: #### C 80, C400, C408, C141, C48, C45, C119, C120 #### [facility] [address] [place] [address] [address] [place] [address] Bilirubin [Mass/Vol] 1.0 mg/dL Normal 0.2-1.3 [facility] Comment on above: Order Comment: Fasti ng: Unknown Performed By: #### C 80, C400, C408, C141, C48, C45, C119, C120 #### [facility] [address] [place] [address] [address] [place] [address] Protein [Mass/Vol] 7.5 g/dL Normal 6.3-8.4 [facility] Comment on above: Order Comment: Fasti ng: Unknown Performed By: #### C 80, C400, C408, C141, C48, C45, C119, C120 #### [facility] [address] [place] [address] TSHon 07-07-2018 TSH Qn 5.11 MIU/mL Normal 0.50-6.00 [facility] Comment on above: Order Comment: Items in this order include: Free T4, Direct LDL , Urine, Random, Albumin/Crea , HDL, TSH, Triglyceride, Basic Metabolic Panel , Hepatic Panel, , Fasting: Unknown Performed By: #### C 80, C400, C408, C141, C48, C45, C119, C120 #### [facility] [address] [place] [address] Triglycerideon 07-07-2018 CO2 [Moles/Vol] 107 mg/dL Normal <150 [facility] Comment on above: Order Comment: Fasti ng: Unknown Performed By: #### C 80, C400, C408, C141, C48, C45, C119, C120 #### [facility] [address] [place] [address] Urine, Random, Albumin/Creao n 07-07-2018 Albumin DL <= 20 mg/L (U) [Mass/Vol] 11.7 mg/dL High 0.0-1.6 [facility] Comment on above: Order Comment: Items in this order include: Free T4, Direct LDL , Urine, Random, Albumin/Crea , HDL, TSH, Triglyceride, Basic Metabolic Panel , Hepatic Panel, , Fasting: Unknown Performed By: #### C 80, C400, C408, C141, C48, C45, C119, C120 #### [facility] [address] [place] [address] Creatinine (U) [Mass/Vol] 95.2 mg/dL Normal 28.0-217.0 [facility] Comment on above: Order Comment: Items in this order include: Free T4, Direct LDL , Urine, Random, Albumin/Crea , HDL, TSH, Triglyceride, Basic Metabolic Panel , Hepatic Panel, , Fasting: Unknown Performed By: #### C 80, C400, C408, C141, C48, C45, C119, C120 #### [facility] [address] [place] [address] Urine Microalb/ Creat Ratio 122.9 mcg/mg creat High 0.0-29.9 [facility] Comment on above: Order Comment: Items [...] C408, C141, C48, C45, C119, C120 #### [facility] [address] [place] [address] CBC WITH AUTO DIFFERENTIALon 07-02-2018 Basophils #/vol (Bld) 0.04 10*3/uL [facility] Basophils/100 WBC (Bld) 0.5 % [facility] Eosinophils #/vol (Bld) 0.11 10*3/uL [facility] Eosinophils/100 WBC (Bld) 1.4 % [facility] Erythrocyte distribution width Entitic volume (RBC) 15.1 % High 11.6 - 14.8 % [facility] Hematocrit Volume Fraction (Bld) 38.0 % 36 - 46 % [facility] Hemoglobin mass conc (Bld) 12.6 g/dL 12 - 16 g/dL [facility] Immature granulocytes #/vol (Bld) 0.06 10*3/uL [facility] Immature granulocytes/100 WBC (Bld) 0.80 % [facility] Comment on above: The IG parameter is the percentage of metamyelocytes, myelocytes, and promyelocytes. Interpretation and review of laboratory results Abnormal [facility] Lymphocytes #/vol (Bld) 0.69 10*3/uL Low [facility] Lymphocytes/100 WBC (Bld) 8.7 % [facility] MCH Entitic mass (RBC) 32.4 pg 26 - 34 pg [facility] MCHC mass conc (RBC) 33.2 g/dL 31 - 37 g/dL [facility] MCV Entitic volume (RBC) 97.7 fL 80 - 100 fL [facility] Monocytes #/vol (Bld) 0.74 10*3/uL [facility] Monocytes/100 WBC (Bld) 9.3 % [facility] Neutrophils #/vol (Bld) 6.28 10*3/uL [facility] Neutrophils/100 WBC (Bld) 79.3 % [facility] Nucleated RBC #/vol (Bld) 0.00 10*3/uL [facility] Nucleated RBC/100 WBC Ratio (Bld) 0.0 % [facility] Platelet mean volume Entitic volume (Bld) 10.8 fL 9 - 15.5 fL [facility] Platelets #/vol (Bld) 216 10*3/uL [facility] RBC #/vol (Bld) 3.89 10*6/uL Low [facility] WBC #/vol (Bld) 7.92 10*3/uL [facility] Chem 707-02-2018 Anion gap molar conc 16 mmol/L 10 - 20 mmol/L [facility] Chloride molar conc 103 mmol/L 98 - 108 mmol/L [facility] Creatinine mass conc 1.12 mg/dL 0.6 - 1.2 mg/dL [facility] GFR/1.73 sq M predicted among non-blacks MDRD vol rate/area (S/P/Bld) The eGFR should be used for monitoring renal function only and not for medication dosing. [facility] GFR/1.73 sq M.predicted CKD-EPI vol rate/area (S/P/Bld) 47 Low >=60 mL/min/1.73 m2 [facility] Glucose mass conc 117 mg/dL High 65 - 99 mg/dL [facility] HCO3 molar conc 27 mmol/L 21 - 32 mmol/L [facility] Interpretation and review of laboratory results Abnormal [facility] Potassium molar conc 4.3 mmol/L 3.5 - 5.1 mmol/L [facility] Sodium molar conc 142 mmol/L 135 - 145 mmol/L [facility] Urea nitrogen mass conc 24 mg/dL 8 - 25 mg/dL [facility] Urea nitrogen/Creatinine mass ratio 21.4 mg/mg High [facility] Otheron 07-02-2018 Extra Tube Hold for add-ons. [facility] Comment on above: Auto resulted. URINALYSISon 07-02-2018 Bacteria Auto Ql (U) Rare Abnormal None Seen /hpf [facility] Bilirubin Ql (U) Negative Negative [facility] th Clarity Refractometry automated Nom (U) Clear Clear [facility] Color Nom (U) Yellow Colorless, Yellow [facility] Epithelial cells.squamous Auto #/area (Urine sed) <1 [facility] Glucose Automated test strip mass conc (U) Negative Negative mg/dL [facility] Hemoglobin Automated test strip Ql (U) Negative Negative [facility] Hyaline casts Auto #/area (Urine sed) 3-5 Abnormal 0 - 2 /lpf [facility] Interpretation and review of laboratory results Abnormal [facility] Ketones mass conc (U) Negative Negative mg/dL [facility] Leukocyte esterase Automated test strip Ql (U) Negative Negative [facility] Mucus Auto #/area (Urine sed) Rare None Seen, Rare /lpf [facility] Nitrite Automated test strip Ql (U) Negative Negative [facility] pH (U) 6.0 [pH] [facility] Protein mass conc (U) Negative Negative mg/dL [facility] RBC Auto #/area (Urine sed) <1 [facility] Specific gravity Relative Density (U) 1.010 [facility] Urobilinogen mass conc (U) <2.0 <2.0 mg/dL [facility] WBC Auto #/area (Urine sed) <1 [facility] Microscopic examination is performed on all urinalysis samples and only positive findings are reported. The test for blood on the chemical analytic portion of urinalysis may also be positive due to hemoglobinuria and myoglobinuria and if red blood cells are present they are quantified by microscopic examination. [facility] Hepatic Function Panelon Alanine aminotransferase (ALT) 10 U/L Invalid Interpretation Code 0 - 40 U/L [facility] Albumin 4.4 g/dL Invalid Interpretation Code 3.2 - 5.2 g/dL [facility] Alkaline phosphatase (ALP) 58 U/L Invalid Interpretation Code 40 - 150 U/L [facility] Aspartate aminotransferase (AST) 15 U/L Invalid Interpretation Code 0 - 45 U/L [facility] Bilirubin (conjugated) 0.2 mg/dL Invalid Interpretation Code 0 - 0.4 mg/dL [facility] Bilirubin (total) 0.7 mg/dL Invalid Interpretation Code 0 - 1.3 mg/dL [facility] Protein 6.6 g/dL Invalid Interpretation Code 6 - 8 g/dL [facility] TSH with Reflex Free T4on Interpretation and review of laboratory results Normal Invalid Interpretation Code [facility] Thyroid stimulating hormone (TSH) 5.00 mcIU/mL Invalid Interpretation Code 0.32 - 5.00 [facility] XR Chest AP/PA and LATon XR Chest AP/PA and LAT 1. No acute cardiopulmonary process. 2. Stable hiatal hernia. 3. 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 ROKTR/Foneshow Workstation ID: [id number] Invalid Interpretation Code [employer] [facility] ECG 12 Leadon 04-08-2017 Atrial Rate Invalid Interpretation Code [email or web address] Phone: [place] Invalid Interpretation Code [email or web address] Phone: P-R Interval Invalid Interpretation Code [email or web address] Phone: Q-T Interval Invalid Interpretation Code [email or web address] Phone: Q-T Interval (corrected) Invalid Interpretation Code [email or web address] Phone: QRS Duration Invalid Interpretation Code [email or web address] Phone: QTC Calculation (Bezet) Invalid Interpretation Code [email or web address] Phone: R [place] Invalid Interpretation Code [email or web address] Phone: T [place] Invalid Interpretation Code [email or web address] Phone: Ventricular Rate Invalid Interpretation Code [email or web address] Phone: Hepatic Function Panelon Alanine aminotransferase (ALT) 9 U/L Invalid Interpretation Code 0 - 40 U/L [facility] Albumin 4.3 g/dL Invalid Interpretation Code 3.2 - 5.2 g/dL [facility] Alkaline phosphatase (ALP) 63 U/L Invalid Interpretation Code 40 - 150 U/L [facility] Aspartate aminotransferase (AST) 13 U/L Invalid Interpretation Code 0 - 45 U/L [facility] Bilirubin (conjugated) 0.2 mg/dL Invalid Interpretation Code 0 - 0.4 mg/dL [facility] Bilirubin (total) 0.4 mg/dL Invalid Interpretation Code 0 - 1.3 mg/dL [facility] Interpretation and review of laboratory results Normal Invalid Interpretation Code [facility] Protein 6.5 g/dL Invalid Interpretation Code 6 - 8 g/dL [facility] T4, Freeon 04-08-2017 Thyroxine (T4) free 1.5 ng/dL Invalid Interpretation Code 0.7 - 1.7 ng/dL [facility] TSH with Reflex Free T4on Interpretation and review of laboratory results Abnormal Invalid Interpretation Code [facility] Thyroid stimulating hormone (TSH) 8.89 mcIU/mL High 0.32 - 5.00 [facility] Vital Signs Date Time Vital Sign Value Performing Clinician Facility 10-01-2023 14:35-0400 Body height 149.86 cm [facility] 10-01-2023 14:35-0400 Body mass index (BMI) [Ratio] 32.9 kg/m2 [facility] [facility] 10-01-2023 14:35-0400 Body weight 73.93 kg [facility] 10-01-2023 14:35-0400 Diastolic blood pressure 69 mm[Hg] [facility] 10-01-2023 14:35-0400 Heart rate 94 /min [facility] 10-01-2023 14:35-0400 Systolic blood pressure 102 mm[Hg] [facility] 02-17-2023 15:00-0400 Body height 149.86 cm Boyd Bustamante Other [facility] [employer] Other 02-17-2023 15:00-0400 Body mass index (BMI) [Ratio] 31.71 kg/m2 Boyd Bustamante Other [employer] Other 02-17-2023 15:00-0400 Body weight 71.22 kg Boyd Bustamante Other [employer] Other 02-17-2023 15:00-0400 Diastolic blood pressure 70 mm[Hg] Boyd Bustamante Other [employer] Other 02-17-2023 15:00-0400 SaO2% (BldA) [Mass fraction] 97 % Boyd Bustamante Other [employer] Other 02-17-2023 15:00-0400 Systolic blood pressure 90 mm[Hg] Boyd Bustamante Other [employer] Other 07-01-2022 15:30-0500 Body height 149.86 cm Boyd Bustamante Other [employer] Other 07-01-2022 15:30-0500 Body mass index (BMI) [Ratio] 32.92 kg/m2 Boyd Bustamante Other [employer] Other 07-01-2022 15:30-0500 Body weight 73.94 kg Boyd Bustamante Other [employer] Other 07-01-2022 15:30-0500 Diastolic blood pressure 72 mm[Hg] Boyd Bustamante Other [employer] Other 07-01-2022 15:30-0500 SaO2% (BldA) [Mass fraction] 98 % Boyd Bustamante Other [employer] Other 07-01-2022 15:30-0500 Systolic blood pressure 126 mm[Hg] Boyd Bustamante Other [employer] Other 01-06-2020 10:18-0400 BMI (Body Mass Index) 27.5 kg/m2 Leonoragerman Saunders [facility] 01-06-2020 10:18-0400 Body weight 72.67 kg Leonora Saunders [facility] 01-06-2020 10:18-0400 BP Diastolic 68 mm[Hg] Leonora Saunders [facility] 01-06-2020 10:18-0400 BP Systolic 116 mm[Hg] Leonora Saunders [facility] 01-06-2020 10:18-0400 Height 162.6 cm Leonora Saunders [facility] 01-06-2020 10:18-0400 Pulse (Heart Rate) 57 /min Leonora Saunders [facility] 09-29-2018 14:07-0400 BMI (Body Mass Index) 32.27 kg/m2 Leonora Saunders [facility] 09-29-2018 14:07-0400 BP Diastolic 73 mm[Hg] Leonora Saunders [facility] 09-29-2018 14:07-0400 BP Systolic 122 mm[Hg] Leonora Saunders [facility] 09-29-2018 14:07-0400 Height 162.6 cm Leonoragerman Saunders [facility] 09-29-2018 14:07-0400 Pulse (Heart Rate) 63 /min [facility] 09-29-2018 14:07-0400 Weight 85.28 kg Leonora Saunders [facility] 07-02-2018 09:02-0500 BP Diastolic 56 mm[Hg] [facility] 07-02-2018 09:02-0500 BP Systolic 127 mm[Hg] [facility] 07-02-2018 09:02-0500 Pulse (Heart Rate) 70 /min [facility] 07-02-2018 09:02-0500 Pulse Oximetry 96 % [facility] 07-02-2018 09:02-0500 Respiratory Rate 16 /min [facility] 07-02-2018 05:27-0500 BMI (Body Mass Index) 36.22 kg/m2 [facility] 07-02-2018 05:27-0500 Body Temperature 98.6 [degF] [facility] 07-02-2018 05:27-0500 Height 162.6 cm [facility] 07-02-2018 05:27-0500 Weight 95.71 kg [facility] 04-08-2017 11:19-0500 BMI (Body Mass Index) 35.53 kg/m2 Leonora Saunders [facility] Work Phone: 04-08-2017 11:19-0500 BP Diastolic 74 mm[Hg] Leonora Saunders [facility] Work Phone: 04-08-2017 11:19-0500 BP Systolic 120 mm[Hg] Leonora Saunders [facility] Work Phone: 04-08-2017 11:19-0500 Height 162.6 cm Leonora Saunders [facility] Work Phone: 04-08-2017 11:19-0500 Pulse (Heart Rate) 66 /min Leonora Saunders [facility] Work Phone: 04-08-2017 11:190500 Weight 93.89 kg Leonora Saunders [facility] Work Phone: Encounters Encounter Date Encounter Type Care Provider Facility Start: 02-24-2024 End: 02-24-2024 ambulatory [facility] Start: 02-23-2024 End: 02-23-2024 ambulatory [facility] Start: 02-11-2024 End: 02-11-2024 ambulatory UZIEL OCONNOR Not Available Start: 01-20-2024 End: 01-20-2024 ambulatory [facility] Start: 01-13-2024 ambulatory [facility] Start: 01-13-2024 ambulatory [facility] Start: 01-13-2024 End: 01-13-2024 ambulatory [facility] Start: 01-06-2024 End: 01-06-2024 ambulatory MOISES JAMES Not Available Start: 12-08-2023 End: 12-08-2023 ambulatory [facility] Start: 12-03-2023 End: 12-03-2023 ambulatory UZIEL OCONNOR Not Available Start: 10-01-2023 End: 10-01-2023 ambulatory [facility] Work Phone: Start: 10-01-2023 End: 10-01-2023 Patient encounter procedure [facility] Work Phone: Start: 09-29-2023 Non-patient / Non-visit [facility] Work Phone: Start: 09-17-2023 End: 09-17-2023 ambulatory [facility] Start: 08-19-2023 ambulatory NIA ALCARAZ [facility] Start: 08-19-2023 ambulatory NIA ALCARAZ [facility] Start: 08-19-2023 ambulatory NIA ALCARAZ [facility] Start: 07-22-2023 ambulatory [facility] Start: 07-22-2023 End: 07-22-2023 ambulatory [facility] Start: 07-17-2023 Non-patient / Non-visit [facility] Work Phone: Start: 07-14-2023 End: 07-14-2023 ambulatory [facility] Start: 06-16-2023 End: 06-16-2023 ambulatory [facility] Start: 05-26-2023 End: 05-26-2023 ambulatory [facility] Start: 05-11-2023 ambulatory [facility] Start: 05-11-2023 End: 05-11-2023 ambulatory [facility] Start: 04-23-2023 End: 04-23-2023 ambulatory SAHILMARYBETH STIVEN [facility] Start: 04-11-2023 Evaluation and manag ement of inpatient JOVANNY NUÑEZ [facility] Start: 04-10-2023 End: 04-11-2023 Evaluation and management of inpatient BECKY JESSICA [facility] Start: 03-27-2023 End: 03-27-2023 ambulatory [facility] Start: 02-17-2023 End: 02-17-2023 ambulatory Boyd Bustamante Other [employer] Other Start: 02-17-2023 Office outpatient vi sit 15 minutes Boyd Bustamante [facility] Start: 01-21-2023 End: 01-21-2023 ambulatory Boyd Bustamante Other [employer] Other Start: 01-21-2023 Telephone encounter Boyd Bustamante [facility] Start: 01-19-2023 End: 01-19-2023 ambulatory Boyd Bustamante Other [employer] Other Start: 01-19-2023 Telephone encounter Boyd Bustamante [facility] Start: 11-28-2022 End: 11-28-2022 ambulatory Boyd Bustamante Other [employer] Other Start: 11-28-2022 Telephone encounter Boyd Bustamante [facility] Start: 10-22-2022 End: 10-22-2022 ambulatory Boyd Bustamante Other [employer] Other Start: 10-22-2022 Telephone encounter Boyd Bustamante [facility] Start: 10-21-2022 End: 10-21-2022 ambulatory Boyd Bustamante Other [employer] Other Start: 10-21-2022 Telephone encounter Boyd Bustamante [facility] Start: 09-24-2022 End: 09-25-[address] BOYD BUSTAMANTE Facility:[facility] Start: 08-19-2022 End: 08-19-2022 ambulatory Boyd Bustamante Other [employer] Other Start: 08-19-2022 Telephone encounter Boyd Bustamante [facility] [employer] [facility] Start: 08-12-2022 End: 08-13-[address] BOYD BUSTAMANTE [employer] Other Start: 08-12-2022 Telephone encounter Boyd Bustamante [facility] Start: 07-24-2022 End: 07-25-[address] BOYD BUSTAMANTE Facility:[facility] Start: 07-17-[address] BOYD BUSTAMANTE Facil ity:[facility] Start: 07-02-2022 End: 07-02-2022 ambulatory Boyd Bustamante Other [employer] Other Start: 07-02-2022 Telephone encounter Boyd Bustamante [facility] Start: 07-01-2022 End: 07-01-2022 ambulatory Boyd Dianna Other [employer] Other Start: 07-01-2022 Patient encounter procedure Boyd Dianna [facility] Start: 09-18-2020 Refill Leonora Saunders MD Work Phone: [facility] Comment on above: Medication Refill Start: 06-14-2020 End: 06-14-2020 Orders Only Tessy Gomez Work Phone: [facility] Start: 02-03-2020 End: 02-07-2020 Patient encounter procedure NIA ALCARAZ [facility] Start: 01-09-2020 End: 01-09-2020 Patient encounter procedure Shelia Beckett Work Phone: [facility] Start: 01-06-2020 End: 01-10-2020 Patient encounter procedure LEONORA SAUNDERS [facility] Start: 01-06-2020 End: 01-07-2020 Patient encounter procedure LEONORA SAUNDERS [facility] Start: 01-06-2020 End: 01-06-2020 Office outpatient visit 15 minutes Leonora Saunders Work Phone: [facility] Comment on above: PAF (paroxysmal atri al fibrillation) (HCC) (Primary Dx); long-term current use of 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 drug; 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, unspecified type Start: 01-06-2020 End: 01-06-2020 Subsequent hospital visit by physician Leonora Saunders Work Phone: [facility] Comment on above: 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; PAF (paroxysmal atrial fibrillation) (HCC) Start: 09-06-2019 End: 09-06-2019 Patient encounter procedure Leonora Saunders Work Phone: [facility] Start: 04-19-2019 End: 04-19-2019 Patient encounter procedure Leonora Saunders Work Phone: [facility] Start: 03-09-2019 End: 03-13-2019 Patient encounter procedure NIA KANG LESLEYHEBERT [facility] Start: 03-07-2019 End: 03-07-2019 Patient encounter procedure Leonora Saunders Work Phone: [facility] Start: 09-29-2018 End: 09-29-2018 Office outpatient visit 25 minutes Leonora Saunders Work Phone: [facility] Comment on above: PAF (paroxysmal atri al fibrillation) (HCC) (Primary Dx); 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, unspecified type; long-term current use of 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 drug Start: 09-28-2018 End: 09-28-2018 Patient encounter procedure Leonora Saunders Work Phone: [facility] Start: 08-11-2018 End: 08-11-2018 Patient encounter procedure Leonora Saunders Work Phone: [facility] Start: 07-05-2018 End: 07-05-2018 Patient encounter procedure Leonora Saunders Work Phone: [facility] Start: 07-02-2018 End: 07-02-2018 Evaluation and management of inpatient Tito Snell Work Phone: [facility] Emergency Department Start: 04-09-2018 End: 04-09-2018 Patient encounter procedure Leonora Saunders Work Phone: [facility] Start: 04-05-2018 End: 04-05-2018 Patient encounter Leonora Saunders Work Phone: [facility] Start: 12-30-2017 End: 12-30-2017 Patient encounter Leonora Saunders Work Phone: [facility] Start: 08-11-2017 Patient encounter Leonora Saunders Work Phone: [facility] Start: 07-08-2017 End: 07-08-2017 Ambulatory Leonora Saunders Work Phone: [facility] Start: 06-17-2017 Ambulatory Leonora Saunders Work Phone: [facility] Start: 04-08-2017 Office outpatient vi sit 15 minutes Leonora Saunders Work Phone: [facility] Start: 04-08-2017 End: 04-08-2017 Ambulatory Leonora Saunders Work Phone: [facility] Start: 03-24-2017 Ambulatory Leonora Saunders Work Phone: [facility] Start: 03-13-2017 Patient encounter Leonora Saunders Work Phone: [facility] Start: 01-09-2017 End: 01-09-2017 Patient encounter procedure Leonora Saunders Work Phone: [facility] Start: 12-01-2016 End: 12-01-2016 Patient encounter procedure Leonora Saunders Work Phone: [facility] Procedures Date [...] Phone: Start: 07-02-2018 LIGHT BLUE TOP Tito pratt Rimer Work Phone: Start: 07-02-2018 LIGHT GREEN TOP Tito James [facility] Work Phone: Start: 07-02-2018 PINK TOP Tito All en Rimer Work Phone: Start: 07-02-2018 RAINBOW DRAW Tito All en Rimer Work Phone: Removal of suture Boyd Bra un Other Removal of suture Boyd Bra un Other Plan of Treatment Date Care Activity Detail Author Start: 05-03-2031 Tetanus vaccination Tetanus: Every 1 0yrs [facility] Start: 01-23-2022 Influenza vaccination Sequenti al Influenza Vaccine (#1) [facility] Start: 01-05-2021 CLASS III : OFFICE VISIT CLASS III : OFFICE VISIT [facility] Start: 08-02-2020 Thyroid stimulating hormone measurement Class III : TSH [facility] Start: 07-08-2020 Alanine aminotransfe rase measurement CLASS III : ALT [facility] Start: 03-09-2020 CLASS III : EKG CLASS III : EKG [facility] Start: 02-10-2020 History and physical examination, annual for health maintenance Wellness Visit [facility] Start: 01-24-2020 Influenza vaccinatio n given Sequential Influenza Vaccine (#1) [facility] Start: 09-30-2019 CLASS III : OFFICE VISIT CLASS III : OFFICE VISIT [facility] Start: 09-28-2019 CLASS III : EKG CLASS III : EKG [facility] Start: 09-08-2019 CLASS III : ALT CLASS III : ALT [facility] Start: 09-08-2019 CLASS III : AST CLASS III : AST [facility] Start: 09-08-2019 CLASS III : TSH CLASS III : TSH [facility] Start: 03-30-2019 CLASS III : ALT CLASS III : ALT [facility] Start: 03-30-2019 CLASS III : AST CLASS III : AST [facility] Start: 03-30-2019 CLASS III : TSH CLASS III : TSH [facility] Start: 03-04-2019 CLASS III : EKG CLASS III : EKG [facility] Start: 01-23-2019 Influenza vaccinatio n given [facility] Start: 09-29-2018 End: 09-29-2018 Appointment [facility] Start: 09-02-2018 CLASS III : ALT CLASS III : ALT [employer] [facility] Start: 09-02-2018 CLASS III : AST CLASS III : AST [facility] Start: 09-02-2018 CLASS III : TSH CLASS III : TSH [facility] Start: 07-08-2018 CLASS III : EKG CLASS III : EKG [facility] Start: 04-08-2018 CLASS III : OFFICE VISIT CLASS III : OFFICE VISIT [facility] Work Phone: Start: 01-23-2018 Influenza vaccination [facility] Start: 01-23-2018 Influenza vaccinatio n given SEQUENTIAL INFLUENZA VACCINE (#1) [facility] Start: 01-06-2018 CLASS III : EKG CLASS III : EKG [employer] Phone: Start: 01-05-2018 CLASS III : ALT CLASS III : ALT [facility] Start: 01-05-2018 CLASS III : AST CLASS III : AST [facility] Start: 01-05-2018 CLASS III : TSH CLASS III : TSH [place] [facility] Start: 10-06-2017 CLASS III : ALT CLASS III : ALT [employer] Work Phone: Start: 10-06-2017 CLASS III : AST CLASS III : AST [employer] Work Phone: Start: 10-06-2017 CLASS III : TSH CLASS III : TSH [employer] Work Phone: Start: 07-09-2017 CLASS III : ALT CLASS III : ALT [employer] Work Phone: Start: 07-09-2017 CLASS III : AST CLASS III : AST [employer] Work Phone: Start: 07-09-2017 CLASS III : TSH CLASS III : TSH [employer] Work Phone: Start: 04-04-2017 CLASS III : EKG CLASS III : EKG [employer] Work Phone: Start: 04-02-2017 CLASS III : OFFICE VISIT CLASS III : OFFICE VISIT [employer] Work Phone: Start: 01-23-2017 Influenza vaccination SEQUENTI AL INFLUENZA VACCINE (#1) [facility] Work Phone: Start: 01-23-2017 SEQUENTIAL INFLUENZA VACCINE (#1) SEQUENTIAL INFLUENZA VACCINE (#1) [facility] Work Phone: Start: 09-30-2016 CLASS III : ALT CLASS III : ALT [facility] Work Phone: Start: 09-30-2016 CLASS III : AST CLASS III : AST [facility] Work Phone: Start: 09-30-2016 CLASS III : TSH CLASS III : TSH [facility] Work Phone: Start: 11-15-2015 Pneumococcal vaccination PNEUM OCOCCAL VACCINE AGE 65+ (2 of 2 - PPSV23) [facility] Start: 11-15-2015 Pneumococcal Vaccine : Age 65+ (2 - PPSV23 if available, else PCV20) Pneumococcal Vaccine: Age 65+ (2 - PPSV23 if available, else PCV20) [facility] Start: 2005 Fall risk assessment [facility] Start: 2005 Pneumococcal vaccination PNEUM OCOCCAL VACCINE AGE 65+ (1 of 2 - PCV13) [facility] Work Phone: Start: 2005 PNEUMOCOCCAL VACCINE AGE 65+ (1 of 2 - PCV13) PNEUMOCOCCAL VACCINE AGE 65+ (1 of 2 - PCV13) [facility] Work Phone: Start: 2000 Zoster vacc, sc ZOSTER VACCINE [facility] Work Phone: Start: 1990 Administration of he rpes zoster vaccine ZOSTER VACCINES (1 of 2) [facility] Start: 1990 ZOSTER VACCINES (1 of 2) ZOSTE R VACCINES (1 of 2) [facility] Start: 12-18-1959 Administration of he rpes zoster vaccine Zoster Vaccines (1 of 2) [facility] Start: 1958 Hepatitis C antibody , confirmatory test Hepatitis C Screening [facility] Start: 1952 Adolescent depressio n screening assessment Depression Screening (PHQ9) [facility] Start: 1952 Depression screening using PHQ-9 (Patient Health Questionnaire 9) score Depression Screening (PHQ-2/9) [facility] Start: 12-18-1943 History and physical examination, annual for health maintenance Wellness Visit [facility] Start: 06-19-1941 COVID-19 Vaccine (#1) COVID-19 Vacci ne (#1) [facility] Start: 1940 DEXA SCAN DEXA SCAN [facility] Work Phone: Start: 1940 Fall risk assessment Falls Risk Asse ssment [facility] Start: 1940 Protein mass conc Mammogram [facility] Start: 1940 Screening mammography Mammogram [facility] Start: 1940 TETANUS EVERY 10 YR TETANUS EVERY 10 YR [facility] Work Phone: Start: 1940 End: 1940 Screening for osteoporosis DEXA SCAN [facility] Start: 1940 End: 1940 Tetanus vaccination [facility] Work Phone: End: 07-02-2018 Bacteria identified Aer cx Nom (Unsp spec) Urine Aerobic Culture Routine Once for 1 Occurrences starting 07/02/2018 until 07/02/2018 [facility] Comment on above: Once for 1 Occurrenc es starting 07/02/2018 until 07/02/2018 Bacteria identified Aer cx Nom (Unsp spec) Urine Aerobic Culture Routine 07/02/2018 8:08 AM EST [facility] X-ray of chest and abdomen XR Ab domen 2 Views With Chest 1 View STAT 07/02/2018 6:50 AM EST [facility] Payers Date Payer Category Payer Medicare [id number] 2014 Medicare [id number] 2014 Medicare [employer] MANAGED [place] D[place] AETNA MEDICARE PLAN (PPO) [id number] 2014-Present [id number] 2014 Medicare [employer] MANAGED [place] AETNA MEDICARE PLAN (PPO) [id number] 2014-Present [phone] [address] [place] [address] [id number] 1959 Medicare [id number] 1940 Unknown [id number] 1940 Unknown [id number] 1940 Unknown [id number] 1940 Unknown [id number] 1940 Unknown [id number] 1940 Unknown [id number] 1940 Unknown [id number] 1940 Unknown [id number] 1940 Unknown [id number] 1940 Unknown [id number] 1940 Unknown [id number] 1940 Unknown [id number] 1940 Unknown [id number] Medicare Medicare [id number] Social History Date Type Detail Facility Start: 04-08-2017 End: 01-06-2020 Tobacco smoking status NHIS Former smoker [facility] Work Phone: End: 05-25-1969 History of tobacco use Current smoker [facility] Work Phone: Start: 1940 Sex Assigned At Not on file [facility] Work Phone: Start: 07-02-2018 End: 01-06-2020 Alcohol intake Current non-drinker of alcohol (finding) [facility] Exposure to SARS-CoV-2 (event) Not sure [facility] Start: 04-08-2017 End: 01-06-2020 Tobacco use and exposure Never used [facility] End: 05-25-1969 History of tobacco use Cigarette Smoker [facility] Sex Assigned At Sex Assigned At [facility] [employer] Other Start: 1940 Sex Assigned At Female F [facility] Clinical Notes 09-18-2020 to 02-23-2024 Note Date & Type Note Facility 02-23-2024 Note [place] [facility] Progress Note Reason for visit: Afib s/p AVN ablation 01/13/24, s/p upgrade to BiV pacemaker 01/13/24 02/23/2024 She c/o having a tumping feeling on the left side of her chest while laying down 3 weeks or so ago. Lasted for 30 minutes, felt irregular. Lasted for a fews days then resolved on its own. She denies c/o CP, dyspnea, orthopnea, PND, LE edema, dizziness. Her leg swelling is doing well. She is taking lasix 20mg daily. She is down 4lb since last seen. 01/20/24 Since last seen she has undergone [...] thyroid issues. She had previous seen a beaver trapper and an outlying facility and recently moved here about 2 years ago and has not established with a beaver trapper. She was seen by Gracia SOSA and subsequently started on anticoagulation with Eliquis. previously she had afib ablation with [facility] before 2009 had for unclear reasons was not placed on anticoagulation when he saw her. she got admitted to [place] ED on 02/06/2023 following a fall. versus attributed to be a mechanical fall as she tripped on the corner curb. no loss of consciousness. CT of the head was negative for any hemorrhage. she had some lacerations which were sutured. She had a recent echocardiogram done which showed cardiomyopathy with a EF of 35 to 40%. [id number] at least 6 for age, gender, hypertension, [...] Intimate Partner Violence: Not At Risk (04/10/2023) [place] [facility] Fear of Current or Ex-Partner: No Emotionally Abused: Not on file Physically Abused: Not on file Sexually Abused: Not on file Physically or Sexually Abused: Not on file Depression: Not on file Housing Stability: Low Risk (04/10/2023) Housing Stability Vital Sign Unable to Pay for Housing in the Last Year: Not (more content not included)... [facility] 02-23-2024 Note Pt is here for a one month follow up. Pt denies sob, chest pain, palpatations. Review of Systems Cardiovascular: Positive for leg swelling. Neurological: Positive for excessive daytime sleepiness. All other systems reviewed and are negative. [facility] 01-20-2024 Note [place] [facility] Consult Note Reason for visit: Afib [...] thyroid issues. She had previous seen a beaver trapper and an outlying facility and recently moved here about 2 years ago and has not established with a beaver trapper. She was seen by Gracia SOSA and subsequently started on anticoagulation with Eliquis. previously she had afib ablation with [facility] before 2009 had for unclear reasons was not placed on anticoagulation when he saw her. she got admitted to [place] ED on 02/06/2023 following a fall. versus attributed to be a mechanical fall as she tripped on the corner curb. no loss of consciousness. CT of the head was negative for any hemorrhage. she had some lacerations which were sutured. She had a recent echocardiogram done which showed cardiomyopathy with a EF of 35 to 40%. [id number] at least 6 for age, gender, hypertension, [...] 4 ) W (more content not included)... [facility] 01-20-2024 Note Pt is here for a wou nd check. Pt denies chest pain, sob, palpitations. Pt is here for a ablation Review of Systems Cardiovascular: Positive for leg swelling. Neurological: Positive for excessive daytime sleepiness. All other systems reviewed and are negative. [facility] 01-13-2024 Note AV NODE ABLATION & C RT-P (BiV PACEMAKER) UPGRADE PROCEDURE NOTE DATE OF PROCEDURE: 01/13/2024 PERFORMING PHYSICIAN: Dr. Param Quiroga EDITOR NEWS: Dr Shaw Moore CONSENT: Patient LOCATION: EP Lab PROCEDURE PERFORMED: [...] c-diff, TIA, HLD had previous seen a beaver trapper. She was seen by Gracia SOSA and subsequently started on anticoagulation with Eliquis. Previously she had afib ablation with [facility] before 2009 had for unclear reasons was not placed on anticoagulation when he saw her. She got admitted to [place] ED on 02/06/2023 following a fall. She [...] venous access was acquired and therafter the [place] sheath was advanced, and with manipulation, advanced wire into CS body. [place] sheath was advanced into the body. I used an amplatz wire for support. [place] catheter was advanced and venogram was performed. 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 Pocket hemostasis was secured and it was [...] top. Lead parameters (more content not included)... [facility] 01-13-2024 Note Patient: Debra Seaman maren Procedure Information Date/Time: 01/13/24 1300 Procedures: AV node ablation - PC APPROVED to be done w biV upgrade Biventricular ICD upgrade - w av node ablation Location: [facility] / [facility] (Cath) Providers: Param Quiroga MD Clinical information reviewed: Physical Exam Airway Mallampati: II TM distance: >3 FB Neck ROM: full Cardiovascular Dental Pulmonary Abdominal Anesthesia Plan ASA 3 CSE Anesthetic plan and risks discussed with patient. Use of blood products discussed with patient who. Additional Equipment Requests [facility] 12-08-2023 Note [place] [facility] Consult Note Reason for visit: Afib, [...] thyroid issues. She had previous seen a beaver trapper and an outlying facility and recently moved here about 2 years ago and has not established with a beaver trapper. She was seen by Gracia SOSA and subsequently started on anticoagulation with Eliquis. previously she had afib ablation with [facility] before 2009 had for unclear reasons was not placed on anticoagulation when he saw her. she got admitted to [place] ED on 02/06/2023 following a fall. versus attributed to be a mechanical fall as she tripped on the corner curb. no loss of consciousness. CT of the head was negative for any hemorrhage. she had some lacerations which were sutured. She had a recent echocardiogram done which showed cardiomyopathy with a EF of 35 to 40%. [id number] at least 6 for age, gender, hypertension, [...] 20 mg ta (more content not included)... [facility] 09-17-2023 Note [place] Electrophysiology Consult Note Reason [...] thyroid issues. She had previous seen a beaver trapper and an outlying facility and recently moved here about 2 years ago and has not established with a beaver trapper. She was seen by Gracia SOSA and subsequently started on anticoagulation with Eliquis. previously she had afib ablation with [facility] before 2009 had for unclear reasons was not placed on anticoagulation when he saw her. she got admitted to [place] ED on 02/06/2023 following a fall. versus attributed to be a mechanical fall as she tripped on the corner curb. no loss of consciousness. CT of the head was negative for any hemorrhage. she had some lacerations which were sutured. She had a recent echocardiogram done which showed cardiomyopathy with a EF of 35 to 40%. [id number] at least 6 for age, gender, hypertension, [...] Intimate Partner Violence: Not At Risk (04/10/2023) [place] Safety & Environment Fear of Current or [...] into each n (more content not included)... [facility] 09-17-2023 Note Patient here for fol low up cardioversion performed on 07/22/[address] Quiroga. She denies chest pain, SOB, palpitations, lightheadedness/syncope, and bleeding on Eliquis. Review of Systems Constitutional: Positive for malaise/fatigue. Respiratory: Positive for cough. Musculoskeletal: Positive for arthritis, back pain, joint pain and myalgias. Neurological: Positive for headaches and numbness. All other systems reviewed and are negative. [facility] 09-04-2023 Note This report has been cancelled. [facility] 07-22-2023 Note DIRECT CARDIOVERSION PROCEDURE NOTE Date: [...] Continue anticoagulation. Param Quiroga MD Cardiac Electrophysiology [facility] 07-22-2023 Note Patient: Debra engel Procedure Information Date/Time: 07/22/23829 Procedure: Cardioversion Location: [facility] HOLDING ROOM / [facility] (Cath) Providers: Param Quiroga MD Clinical information reviewed: Tobacco Allergies Meds Med Hx Surg Hx OB Status Fam Hx Soc Hx Physical Exam Airway Mallampati: II TM distance: >3 FB Neck ROM: full Cardiovascular Dental Pulmonary Abdominal Anesthesia Plan ASA 2 CSE Anesthetic plan and risks discussed with patient. Use of blood products discussed with patient who. Additional Equipment Requests [facility] 07-22-2023 Note This report has been cancelled. [facility] 07-14-2023 Note [place] Electrophysiology Consult Note Reason for visit: Afib, [...] thyroid issues. She had previous seen a beaver trapper and an outlying facility and recently moved here about 2 years ago and has not established with a beaver trapper. She was seen by Gracia SOSA and subsequently started on anticoagulation with Eliquis. previously she had afib ablation with [facility] before 2009 had for unclear reasons was not placed on anticoagulation when he saw her. she got admitted to [place] ED on 02/06/2023 following a fall. versus attributed to be a mechanical fall as she tripped on the corner curb. no loss of consciousness. CT of the head was negative for any hemorrhage. she had some lacerations which were sutured. She had a recent echocardiogram done which showed cardiomyopathy with a EF of 35 to 40%. [id number] at least 6 for age, gender, hypertension, [...] 100 mcg by mouth in the morning. aewrvqv-jehu-quexa-oreg-capryl 100 mg-150 mg- 50 mg-150 mg capsule Take 1 capsule by mouth in the morning. venlafaxine XR (Effexor-XR (more content not included)... [facility] 05-26-2023 Note [place] Electrophysiology Consult Note Reason for visit: Afib, [...] thyroid issues. She had previous seen a beaver trapper and an outlying facility and recently moved here about 2 years ago and has not established with a beaver trapper. She was seen by Gracia SOSA and subsequently started on anticoagulation with Eliquis. previously she had afib ablation with [facility] before 2009 had for unclear reasons was not placed on anticoagulation when he saw her. she got admitted to [place] ED on 02/06/2023 following a fall. versus attributed to be a mechanical fall as she tripped on the corner curb. no loss of consciousness. CT of the head was negative for any hemorrhage. she had some lacerations which were sutured. She had a recent echocardiogram done which showed cardiomyopathy with a EF of 35 to 40%. [id number] at least 6 for age, gender, hypertension, [...] Take 3 capsules (more content not included)... [facility] 05-26-2023 Note Patient here for fol low up cardioversion. Review of Systems Constitutional: Positive for malaise/fatigue. Hematologic/Lymphatic: Bruises/bleeds easily. All other systems reviewed and are negative. [facility] 05-11-2023 Note Patient: Debra engel Procedure Information Date/Time: 05/11/23 1200 Procedure: Cardioversion Location: [facility] HOLDING ROOM / [facility] (Cath) Providers: Param Quiroga MD Clinical information reviewed: Allergies Meds OB Status Physical Exam Airway Mallampati: II TM distance: >3 FB Neck ROM: full Cardiovascular Dental Pulmonary Abdominal Anesthesia Plan ASA 2 CSE Anesthetic plan and risks discussed with patient. Use of blood products discussed with patient who. Additional Equipment Requests [facility] 04-23-2023 Note Patient seen for wou nd [...] weeks. 5. No driving for 1 month. [facility] 04-23-2023 Note Patient here for wou nd check s/p device insertion with Dr. Nuñez on 04/10/2023. [facility] 04-10-2023 Note Indications for perm anent pacemaker [...] of the upper extremity Jovanny Nuñez M.D. [facility] investment specialist and Pediatrics Director: Cardiac Electrophysiology Program [facility] 04-10-2023 Note Patient: Debra engel Procedure Information Date/Time: 04/10/232319 Procedure: Implant PPM Location: [facility] / [facility] (Cath) Providers: Jovanny Nuñez [...] discussed with patient who. Additional Equipment Requests [facility] 04-10-2023 Note Patient: Debra engel Procedure Information Date/Time: 04/10/232319 Procedure: Implant PPM Location: [facility] 1 EP / [facility] (Cath) Providers: Jovanny Nuñez MD Clinical information reviewed: Allergies Physical Exam Airway Mallampati: I Cardiovascular - normal exam Dental - normal exam Pulmonary - normal exam Abdominal - normal exam Anesthesia Plan Additional Equipment Requests [facility] 03-27-2023 Note [place] Electrophysiology Consult Note Reason for [...] thyroid issues. She had previous seen a beaver trapper and an outlying facility and recently moved here about 2 years ago and has not established with a beaver trapper. She was seen by Gracia SOSA and subsequently started on anticoagulation with Eliquis. previously she had afib ablation with [facility] before 2009 had for unclear reasons was not placed on anticoagulation when he saw her. she got admitted to [place] ED on 02/06/2023 following a fall. versus attributed to be a mechanical fall as she tripped on the corner curb. no loss of consciousness. CT of the head was negative for any hemorrhage. she had some lacerations which were sutured. She had a recent echocardiogram done which showed cardiomyopathy with a EF of 35 to 40%. [id number] at least 6 for age, gender, hypertension, [...] 100 mcg by mouth in the morning. znprllh-nmzo-thdoo-oreg-capryl 100 mg-150 mg- 50 mg-150 mg capsule Take 1 capsule by mouth in the morning. venlafaxine XR (Effexor-XR) 75 mg 24 hr capsule Take 75 mg by mouth in the morning, at noon, and at bedtime. vit C,T-Pn-whwmc-lutein-zeaxan (PreserVision AREDS-2) 250-90-40-1 mg capsule Take 2 [...] Exam: Constitutional Ge (more content not included)... [facility] 02-17-2023 Evaluation note Encounter Date Diagnosis Assessment Notes Jan, Visit for suture removal (ICD-10 - Z48.02) 3 sutures removed from R 3rd finger - tolerated well. Jan, Atrial fibrillation (ICD-10 - I48.91) BP low today. Pt states she just left Dr. Garay's office and she is scheduled for a heart cath. [facility] Other 02-07-2023 Evaluation note* Encounter Date Diagnosis Assessment Notes [...] for Sleep study retitration and consultation with [place] sleep lab. Jun, Pain in right foot (ICD-10 - M79.671) Jun, Pain in left foot (ICD-10 - M79.672) Jun, Allergic rhinitis, unspecified seasonality, unspecified trigger (ICD-10 - J30.9) [facility] Other 04-27-2021 Telephone encounter Note* Telephone Encounter - Leonora Saunders - 09/18/2020 9:16 AM EDT Amiodarone was discontinued, last notes states the patient moved and has established care elsewhere. [id number] Miscellaneous Notes* Telephone Encounter - Leonora Saunders - 09/18/2020 9:16 AM EDT Amiodarone was discontinued, last notes states the patient moved and has established care elsewhere. 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 iarrhythmic drug Diagnosis PAF (paroxysmal atrial fibri llation) ([facility]) - Primary Atrial fibrillation long-term current use of ant iarrhythmic drug Paroxysmal atrial fibrillati on ([facility]) 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, unspecified ty pe Obesity, unspecified classif ication, unspecified obesity type, unspecified whether serious comorbidity present Diagnosis Fecal impaction (HCC) Other impaction of intestine Diagnosis PAF (paroxysmal atrial fibrillation) ([facility])- Primary Atrial fibrillation 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, unspecified type long-term current use of 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 drug 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 PAF (paroxysmal atrial fibrillation) ([facility]) Atrial fibrillation Diagnosis PAF (paroxysmal atrial fibrillation) ([facility]) Atrial fibrillation long-term current use of 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 drug 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, unspecified [...] are in the chart, copy placed in [facility] bin.) Pt currently has recall for [...] - 01/09/2017 10:52 AM EDT Rec[facility] pt's Class III labwork dated 01/06/17 for [...] - 09/29/2018 2:38 PM EDT [facility] [facility] [address] [facility] [facility] [id number] Office Visit Debra Rodriguez (77 y.o. ( 1940) female) Date of service - 09/29/18 Primary healthcare providers: Nia Alcaraz MD (Family); Nia Alcaraz (Referring)? ASSESSMENT: 1. PAF (paroxysmal atrial fibrillation) (HCC) Stable. No clinical recurrence. Continue medical management. Follow-up EP clinic 1 year. 2. long-term current use of 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 drug. Stable. Labs [...] rhythm, within normal limits Document generated by [employer] voice recognition dictation system to expedite reporting. Please excuse any syntax, spelling or grammatical errors caused by [employer] dictation. Medication list reviewed on 09/29/18 2:38 [...] 2:38 PM Leonora Saunders MD, [facility]. Cardiac Electrophysiology, Cardiovascular Disease. [facility]. documented in [...] reminder letter mailed with a list of [facility] lab facilities with a note instructing pt to call the facility prior to going to make sure it is open. documented in this encounter* Shelia Beckett, Kiesha - 01/13/2020 12:38 PM EDT Several attempts to call patient and Candice Barnett RN, was able to connect with her today and instructed patient of FLN's recs. See telephone encounter dated 01/12/20. * [...] of mild basilar fibrosis. Will route to FLN for final comment given CXR findings as [...] - 01/06/2020 10:40 AM EDT [facility] [address] [facility] [address] [facility] [id number] Cardiac Electrophysiology Clinic Office Visit Debra Rodriguez (79 y.o. ( 1940) female) Date of service - 01/06/20 Primary healthcare providers: Nia Alcaraz MD (Family); No ref. provider found (Referring)? ASSESSMENT: 1. PAF (paroxysmal atrial fibrillation) (HCC) Stable. No clinical recurrence. Continue medical management. 2. long-term current use of 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 drug. Stable. Continue follow-up in class III clinic. 4. 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, unspecified type Stable. Continue medical management. RECOMMENDATIONS: Patient is stable from a cardiac standpoint. Chest x-ray done today looks unremarkable. TSH and liver function studies will be drawn today, results are pending. Patient believes she is up-to-date on refills. Patient states that she has moved to [facility] and plans on transitioning all of [...] rhythm. No acute changes. Document generated by [employer] recognition dictation system to expedite reporting. Please excuse any syntax, spelling or grammatical errors caused by [employer] dictation. Medication list reviewed on 01/06/20 10:40 [...] 10:40 AM Leonora Saunders MD, [facility]. Cardiac Electrophysiology, Cardiovascular Disease. [facility]. documented in [...] be sent through Care Everywhere. 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 Advance Directives and Livin g Will 07/02/2018 5:55 AM Documents on File Type Date Recorded Patient Lawn Specialist Expl anation Advance Directives and Livin g Will 01/06/2020 9:39 AM Advance Directive Response Recorded Date/ Time Advance Directives No October 01, 2023 2:29pm Reason for Referral Status Reason Specialty Diagnoses / Procedures Referred By Contact Referred To Contact Pending Review Cardiology Diagnoses PAF (paroxysmal atrial fibrillation) ([facility]) Procedures ECG 12 Lead Leonora Saunders MD [address] [place] [address] Reason 08/15/22 [facility] Card iology at [facility]. 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 Diagnosis 1 Atrial fibrillation (I48.91) Referral Organization [facility] Referring Provider First Name Boyd Referring Provider Last Name Dianna Referring Provider Specialty [facility] [employer] Referred Organization Unknown Facility Referred Provider Carl Kuhn Referred Provider Specialty Cardiology Referral Priority Routine Referral Appointment Date 2022-08-15 General Notes Cinthia Jacobson 10:24:39 AM >received today, no notes to send with referral. I called patient and left detailed message to see if she can provide me the doctors name she saw in [place]. will follow back up Cinthia Jacobson 07/03/2022 08:27:02 AM >referral faxed, but still waiting on a call back from patient about old records Cinthia Jacobson 07/10/2022 09:19:20 AM >faxed first attempt letter Clinical Notes F: [id number] GERARD Gracia Trinidadsalo Reason *FU 07/30 CALL [facility] office - callouses and pain Diagnosis 1 Pain in right foot ( M79.671) Referral Organization [facility] Referring Provider First Name Boyd Referring Provider Last Name Dianna Referring Provider Specialty Family [employer] Referred Organization [facility] Referred Provider Uziel Oconnor Referred Address ,[place], [place],[address] Referred Provider Specialty Podiatry - S urgical Chiropody Referral Priority Routine General Notes Cinthia Jacobson 10:46:32 AM >received today, attachments made, notes locked, and referral faxed Cinthia Jacobson 07/09/2022 06:48:57 AM >faxed first attempt letter Cinthia Jacobson 07/16/2022 08:32:45 AM >faxed second attempt letter Cinthia Jacobson 07/23/2022 09:30:19 AM >faxed third attempt letter. will call next Clinical Notes [phone] Summary Purpose Family History No Family History [...] Associated Order(s): ED CONSULT TO MEDICAL - ELEMENTARY READING SPECIALIST COMPLEX DISCHARGE Date: 07/02/2018 Time: 8:21 AM [...] district. Discharge Readiness Expected Discharge Date: 07/02/18 [facility] Disposition D/C Disposition: Home Agency/Destination: Home Transportation Type: Cab(pass) Options Reviewed: List provided, Possible expense, Explained services/benefits Reason for Choice: Patient/Family prefernce Iin this encounter Nik Skelton RN - 07/02/2018 [...] section and content) DATE CREATED AUTHOR 10/16/2018 [facility] DATE CREATED AUTHOR AUTHOR'S ORGANIZ ATION 03/25/2019 [facility] DATE CREATED AUTHOR AUTHOR'S ORGANIZ ATION 02/07/2020 [facility] DATE CREATED AUTHOR AUTHOR'S ORGANIZ ATION 02/07/2020 [facility] DATE CREATED AUTHOR AUTHOR'S ORGANIZ ATION 10/01/2022 [facility] pital DATE CREATED AUTHOR AUTHOR'S ORGANIZ ATION 08/20/2023 [facility] DATE CREATED AUTHOR AUTHOR'S ORGANIZ ATION 02/14/2024 [facility] EPIC DATE CREATED AUTHOR AUTHOR'S ORGANIZ ATION 02/28/2024 [facility] Care Teams (unrecognized sec tion and content) Dent Remover Relationship Specialty Start Date End Date Nia Alcaraz MD PCP - General 06/06/11 Leonora Saunders MD Warehouse Supervisor Cardiology 02/20/15 Team Status: Active Member Role Status Dates Boyd Bustamante MD Primary Care Provider Active Team Status: Active Member Role Status Dates Boyd Bustamante MD Primary Care Provide r, Attending Provider Active Start: July 17, 2023 Team Status: Active Member Role Status Dates Boyd Bustamante MD Primary Care Provider Active Start: September 29, 2023 Jus Wheeler NP-C Attending Provider Active Start: September 29, 2023 [...] BE BASED ON THE PRIMARY CLINICAL RECORDS. [facility]. provides no warranty or guarantee of the accuracy or completeness of information in this document.
== END 2024-03-14 13:06 | disposition home or self-care (01) ==
LOC: CARD 13:06
PROVIDERS: PCP Family Medicine; Visit Provider Nurse Practitioner Family
DX: I50.82 Biventricular heart failure (principal); I34.0 Nonrheumatic mitral (valve) insufficiency
CPT/HCPCS: 93306

== ENCOUNTER 2024-11-17 15:23 | Outpatient (OUT) | payer MEDICARE, SELFPAY ==
[2024-11-17 16:04] LABS: Basophils Percent Auto 0.3 % (0.2-2.0); Eosinophils Absolute Auto 0.1 10^3/uL (0.0-0.7); Hematocrit 41.1 % (36.0-48.0); Hemoglobin 13.8 g/dL (12.0-16.0); Immature Granulocytes Abs Auto 0.03 10^3/uL (0.00-0.03); Immature Granulocytes Pct Auto 0.4 % (0.0-0.5); Lymphocytes Absolute Auto 1.3 10^3/uL (1.2-3.8); Lymphocytes Percent Auto 16.1 % (20.5-60.0); Mean Corpuscular HGB Conc 33.6 g/dL (29.9-35.2); Mean Corpuscular Hemoglobin 31.4 pg (26.7-34.0); Mean Corpuscular Volume 93.4 fL (81.0-99.0); Mean Platelet Volume 10.1 fL (9.5-13.5); Monocytes Absolute Auto 0.5 10^3/uL (0.3-0.8); Monocytes Percent Auto 6.7 % (1.7-12.0); Neutrophils Absolute Auto 5.8 10^3/uL (1.4-6.5); Neutrophils Percent Auto 75.5 % (43.0-75.0); Platelet Count 209 10^3/uL (150-450); Red Cell Distribution Width 14.2 % (11.0-15.0); White Blood Count 7.7 10^3/uL (4.0-11.0)
[2024-11-17 17:04] LABS: Anion Gap 10.1; BUN Creatinine Ratio 16.5; Calcium 9.3 mg/dL (8.5-10.1); Carbon Dioxide 31.6 mmol/L (21.0-32.0); Chloride 106 mmol/L (98-107); Estimated GFR (African America >60 (>=60 mL/min/1.73m^2); Estimated GFR (Non-African Ame 55 (>=60 mL/min/1.73m^2); Glucose 86 mg/dL (74-106); Potassium 3.7 mmol/L (3.5-5.1); Sodium 144 mmol/L (136-145); Thyroid Stimulating Hormone 0.061 uIU/mL (0.358-3.740)
[2024-11-17 17:09] LABS: Free T4 1.51 ng/dL (0.76-1.46)
== END 2024-11-17 15:24 | disposition home or self-care (01) ==
PROVIDERS: PCP Family Medicine; Visit Provider Family Medicine
DX: E03.9 Hypothyroidism, unspecified (principal); D50.9 Iron deficiency anemia, unspecified; I10 Essential (primary) hypertension
CPT/HCPCS: 36415; 80048; 82728; 84439; 84443; 85025

== ENCOUNTER 2024-11-23 16:53 | Emergency (ER) | payer OTHER, MEDICARE, SELFPAY ==
[2024-11-23 16:59] VITALS: BP 140/80; PULSE 80; TEMP 36.8; O2SAT 98
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
== END 2024-11-23 17:30 | disposition home or self-care (01) ==
PROVIDERS: Emergency Provider Emergency Medicine; PCP Family Medicine
DX: Z04.1 Encounter for examination and observation following transport accident (principal); Z95.0 Presence of cardiac pacemaker; Z79.01 Long term (current) use of anticoagulants; I48.91 Unspecified atrial fibrillation
CPT/HCPCS: 99281

== ENCOUNTER 2025-01-06 11:49 | Outpatient (OUT) | payer MEDICARE, OTHER, SELFPAY ==
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
--- OUTSIDE RECORDS SUMMARY | 2025-01-06 11:54 | XMS_ITS | Clinical Summary ---
Author Organization [facility] Address [address] [place] [address] Care Team Providers Care Monorail Car Operator Name Role Phone Sonali Ponce MD Primary Care Provider [phone] Allergies Active Allergy Reactions Criticality Noted Date Comments Adhesive 03/14/2015 Paper Tape is ok Sulfa (Sulfonamide Antibiotics) Hives 02/23 Medications azaTHIOprine (Imuran) 50 mg tablet Take 50 mg by mouth in the morning and at bedtime. 3 Active balsalazide (Colazal) 750 mg capsule Take 750 mg by mouth in the morning and at bedtime. 2 capsules daily 3 Active atorvastatin (Lipitor) 20 mg tablet Take 20 mg by mouth in the morning. 3 Active Synthroid 100 mcg tablet Take 100 mcg by mouth in the morning. 2 Active venlafaxine XR (Effexor-XR) 75 mg 24 hr capsule Take 75 mg by mouth in the morning, at noon, and at bedtime. 3 Active potassium chloride CR (Klor-Con) 8 mEq ER tablet Take 16 mEq by mouth in the morning and at bedtime. 3 Active losartan (Cozaar) 50 mg tablet Take 50 mg by mouth in the morning. 2 Active omega-3 fatty acids/fish oil (FISH OIL EXTRA STRENGTH ORAL) Take 3 capsules by mouth in the morning. Active multivitamin capsule Take 1 capsule by mouth in the morning. Active omfhfcw-navq-uvfk q-uxyq-yuhowi 100 mg-150 mg- 50 mg-150 mg capsule Take 1 capsule by mouth in the morning. Active cyanocobalamin (Vitamin B-12) 1,000 mcg tablet Take 1,000 mcg by mouth in the morning. Active cholecalciferol, vitamin D3, (Vitamin D3) 10 mcg (400 unit) capsule Take 10 mcg by mouth in the morning. Active pantoprazole (ProtoNix) 40 mg EC tablet Take 40 mg by mouth before breakfast. Do not crush, chew, or split. Active azelastine (Astelin) 137 mcg (0.1 %) nasal spray Administer 1 spray into each nostril in the morning and at bedtime. Use in each nostril as directed Active apixaban (Eliquis) 5 mg tabletIndications :PAF (paroxysmal atrial fibrillation) (CMS/HCC),Longsta nding persistent atrial fibrillation (CMS/HCC) Take 1 tablet (5 mg) by mouth in the morning and at bedtime. 180 tablet 3 4 Active amLODIPine (Norvasc) 10 mg tablet Take 10 mg by mouth in the morning. Active dapagliflozin propanediol (Farxiga) 10 mgIndications:Acu te on chronic systolic heart failure (CMS/HCC) Take 1 tablet (10 mg) by mouth in the morning. 90 tablet 3 4 03/24/20 25 Active amLODIPine (Norvasc) 5 mg tabletIndications :Benign hypertensive heart disease with heart failure (CMS/HCC) Take 1 tablet (5 mg) by mouth once daily as directed. 90 tablet 3 5 05/26/19 26 Active famotidine (Pepcid) 40 mg tablet Take 40 mg by mouth in the morning. 5 Active ferrous sulfate 325 (65 Fe) MG tablet Take 1 tablet by mouth in the morning. 5 Active Klor-Con/EF 25 mEq effervescent tablet Take 25 mEq by mouth two times daily. 5 Active metoprolol succinate XL (Toprol-XL) 25 mg 24 hr tabletIndications :PAF (paroxysmal atrial fibrillation) (CMS/HCC),Longsta nding persistent atrial fibrillation (CMS/HCC) TAKE 1 TABLET (25 MG) BY MOUTH IN THE MORNING . DO NOT CRUSH OR CHEW 90 tablet 3 5 11/09/19 26 Active furosemide (Lasix) 20 mg tabletIndications :Biventricular CHF (congestive heart failure) (CMS/HCC) Take 1 tablet (20 mg) by mouth in the morning. 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 12/13/2024 Hx of atrioventricular node ablation 01/20/2024 Nonrheumatic mitral valve regurgitation 01/20/20 24 Biventricular cardiac pacemaker in situ 01/20/20 24 Paroxysmal atrial fibrillation 07/14/2023 Overview (09/04/2023): [id number] at least 6 for age, gender, hypertension, TIA -not anticoagulated Chronic ulcerative pancolitis 05/26/2023 AV block 04/10/2023 Acute on chronic systolic heart failure 02/18/20 23 Mitral valve prolapse 12/13/2022 Assessment & Plan (12/13/2022 1:40 PM EDT): - noted as history per PCP - echocardiogram ordered After cataract not obscuring vision, right 01/0512/03/2022 Fecal impaction 07/02/2018 12/03/2022 Longstanding persistent atrial fibrillation 03/25 Assessment & Plan (12/13/2022 1:36 PM EDT): - [id number] at least 6 for age, gender, hypertension, [...] is asymptomatic I will aim for rate control Obesity 04/08/2017 12/03/2022 meterman current use of 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 drug 12/03/2022 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 04/08/2017 12/03/2022 Assessment & Plan (12/13/2022 1:36 PM EDT): - stable, continue medications Retinal neovascularization 05/30/201612/03 Posterior vitreous detachment 05/30/2016 Diabetes mellitus without complication 7 12/03/2022 Vitreous degeneration 10/04/2014 12/03/2022 Retinal hemorrhage 10/04/2014 12/03/2022 Encounters Date Type Department Care Team Description 12/15/2024 12:30 PM EDT Ancillary Procedure [facility] [address] [place] [address] Adjustment and management of cardiac pacemaker 12/15/2024 Orders Only [facility] [address] [place] [address] Param Padron MD 12/13/2024 11:00 AM EDT Office Visit [facility] [address] [place] [address] Param Padron MD Acute combined systolic and diastolic heart failure (CMS/HCC) (Primary Dx); AV block 12/13/2024 10:30 AM EDT Ancillary Procedure [facility] [address] [place] [address] Encounter for adjustment and management of automatic implantable cardiac defibrillator 11/16/2024 9:45 PM EDT Ancillary Procedure [facility] [address] [place] [address] Adjustment and management of cardiac pacemaker 11/15/2024 9:25 PM EDT Ancillary Procedure [facility] [address] [place] [address] Adjustment and management of cardiac pacemaker 11/14/2024 Orders Only [facility] [address] [place] [address] Param Padron MD 11/14/2024 Orders Only [facility] [address] [facility] [place] [address] Titi Dia MD 11/06/2024 Refill [facility] [address] [place] [facility] [address] Noemy Wheeler CNP PAF (paroxysmal atrial fibrillation) (CMS/HCC); Longstanding persistent atrial fibrillation (CMS/HCC); Biventricular CHF (congestive heart failure) (CMS/HCC) 10/25/2024 1:00 PM EDT Office Visit [facility] [address] [place] [facility] [place] [address] Param Padron MD Biventricular cardiac pacemaker in situ (Primary Dx) 10/25/2024 Orders Only [facility] [address] [place] [facility] [place] [address] Xin Casarez MA Paroxysmal atrial fibrillation (CMS/HCC) 10/14/2024 11:15 AM EDT Ancillary Procedure [facility] [address] [place] [address] Adjustment and management of cardiac pacemaker 10/14/2024 Orders Only [facility] [address] [place] [address] Param Padron MD from Last 3 Months Immunizations Immunization Administration Dates Next Due DTP 05/03/2021 Influenza, High Dose Seasona l, Preservative Free 02/09/2019,03/05/2018,01/23/2017,2014 Influenza, Seasonal, Quadriv alent, Adjuvanted 04/11/2023 Influenza, seasonal, injectable 02/10/2014,01/26 Novel [id number], preservative-free 05/22/2009 Pfizer SARS-CoV-2 Vaccination 07/18/2020, 021 Pneumococcal Conjugate PCV 13 11/14/2014 Family History Relation Name Status Comments Father Mother Social History Tobacco Use Types Packs/Day Years Used Date Smoking Tobacco: Former Cigarettes Smokeless Tobacco: Never Tobacco Cessation:Counseling Given: Not Answered Alcohol Use Standard Drinks/Week Comments Not Currently [...] place to sleep or slept in a retirement (including now)? No 04/10/2023 Hunger Vital Sign [...] Heterosexual or Straight 04/24 10:34 AM EST Last Filed Vital Signs Vital Sign Reading Time Taken Comments Blood Pressure 119/63 10/25/2024 1:39 PM EDT Pulse 80 10/25/2024 1:39 PM EDT Temperature 37 C (98.6 F) 04/11/2023 12:00 PM EST Respiratory Rate 23 01/13/2024 5:30 PM EDT Oxygen Saturation 98% 10/25/2024 1:39 PM EDT Inhaled Oxygen Concentration - - Weight 74.8 kg (165 lb) 10/25/2024 1:39 PM EDT Height 162.6 cm (5' 4 ) 10/25/2024 1:39 PM EDT Body Mass Index 28.32 10/25/2024 1:39 PM EDT Plan of Treatment Upcoming Encounters Date Type Department Care Team (Late st Contact Info) Description 01/09/2025 12:00 PM EDT Hospital Encounter [facility] [address] [place] [phone] Param Padron MD [address] [place] [phone] Acute combined systolic and diastolic heart failure (CMS/HCC); AV block 01/09/2025 2:00 PM EDT - 01/09/2025 3:00 PM EDT Surgery [facility] Heart [facility] [address] [place] [address] Param Padron MD [address] [place] [address] Pacemaker lead revision 03/03/2025 Hospital Encounter [facility] [address] [place] [address] Param Padron MD [address] [place] [address] Scheduled Procedures Name Priority Associated Diagnoses Date/Ti me Atrial Fib Ablation w/ PVI Paroxysmal atrial fibrillation (CMS/HCC) Health Maintenance Due Date Last Done Comments Diabetes: Hemoglobin A1C 1940 Medicare Annual Wellness (AWV) 1940 Diabetes: Retinopathy Screening 1950 Depression Screening 1952 Diabetes: Urine Protein Screening 12/18/1959 Zoster Vaccines (1 of 2) 12/18/1959 Adult Tetanus 1962 Fall Risk Screening 2005 Pneumococcal Vaccine: 50+ Years (2 of 2 - PPSV23, PCV20, or PCV21) 01/09/2015 11/14/2014 COVID-19 Vaccine (3 - Pfizer risk series) 08/15/2020 07/18/2020, 06/27/2020 Influenza Vaccine (#1) 2025 , 02/09/2019, 03/05/2018, Additional history exists HIB Vaccines Aged Out No longer eligi ble based on patient's age to complete this topic HPV Vaccines Aged Out No longer eligi ble based on patient's age to complete this topic IPV Vaccines Aged Out No longer eligi ble based on patient's age to complete this topic Meningococcal B Vaccine Aged Out No l onger eligible based on patient's age to complete this topic Meningococcal Vaccine Aged Out No rose lloyd eligible based on patient's age to complete this topic Rotavirus Vaccines Aged Out No longer eligible based on patient's age to complete this topic Medical Devices Implanted Type Area Conservation Biology Professor Device Identifier Shelf Expiration Date Model / Serial / Lot Beni Warren S 53, - [id number] - [id number] Implanted:Qty: 1 on 04/10/2023 by Jerry Nuñez MD at [facility] Lead Biotronik [id number] 02/21/2025 [id number] / [id number] / LeadBeni S 45, - [id number] - [id number] Implanted:Qty: 1 on 04/10/2023 by Jerry Nuñez MD at [facility] Lead [employer]ron[employer] [id number] 02/21/2025 [id number] / [id number] / Sentus Promri Otw Qp S 85/49 Implanted:Qty: 1 on 01/13/2024 by Param Padron MD at [facility] Lead Left: Chest Biotronik [id number] 01/23/2024 [id number] / [id number] / Pacer Lopez Palumbo Dr- T - [id number] - [id number] Implanted:Qty: 1 on 04/10/2023 by Jerry Nuñez MD at [facility] Pacemaker Biotronik [id number] 08/22/2024 [id number] / [id number] / Amvia Edge Hf-T Qp Implanted:Qty: 1 on 01/13/2024 by Param Padron MD at [facility] Pacemaker Left: Chest Biotronik [id number] 01/22/2025 [id number] / [id number] / Procedures Procedure Name Priority Date/Time Associated Diagnosis Comments CARDIAC DEVICE CHECK CHECK - REMOTE Routine 12/26/2024 2:05 PM EDT Adjustment and management of cardiac pacemaker CARDIAC DEVICE CHECK - IN CLINIC - PACEMAKER BIVENTRICULAR CHAMBER W/ PROG Routine 12/16/2024 9:48 AM EDT Encounter for adjustment and management of automatic implantable cardiac defibrillator CARDIAC DEVICE CHECK - REMOTE - PACEMAKER Routine 12/15/2024 12:00 AM EDT CARDIAC DEVICE CHECK CHECK - REMOTE Routine 12/09/2024 5:07 PM EDT Adjustment and management of cardiac pacemaker CARDIAC DEVICE CHECK CHECK - REMOTE Routine 12/08/2024 5:09 PM EDT Adjustment and management of cardiac pacemaker CARDIAC DEVICE CHECK - REMOTE - PACEMAKER Routine 11/14/2024 12:00 AM EDT CARDIAC DEVICE CHECK - REMOTE - PACEMAKER Routine 11/14/2024 12:00 AM EDT CARDIAC DEVICE CHECK CHECK - REMOTE Routine 10/24/2024 12:23 PM EDT Adjustment and management of cardiac pacemaker CARDIAC DEVICE CHECK - REMOTE - PACEMAKER Routine 10/14/2024 12:00 AM EDT from Last 3 Months Results * CARDIAC DEVICE CHECK - REMOTE - PACEMAKER (12/26/2024 2:05 PM EDT) Only the most recent of4 resultswithin the time period is included. us Jerry Nuñez MD CV IMPLANTABLE CARDIAC DEVICE MT OCEDURES Final Result CPACS * CARDIAC DEVICE CHECK - IN CLINIC - PACEMAKER BIVENTRICULAR CHAMBER W/ PROG (12/16/2024 9:48 AM EDT) Anatomical Region Laterality Modality Other Narrative 12/20/2024 10:18 AM EDT By using the attestations below, the signing clinician agrees that I have read and verify that the documentation has been personally reviewed by me and ensure that the documentation accurately reflects the encounter. Routine EP device follow up as per schedule. Please see attached note us Param Padron MD CV IMPLANTABLE CARDIAC DEVICE MT OCEDURES Final Result * Cardiac device check - Remote pacemaker (12/15/2024 12:00 AM EDT) Only the most recent of4 resultswithin the time period is included. Anatomical Region Laterality Modality Other 12/15/2024 Param Padron MD CV IMPLANTABLE CARDIAC DEVICE MT OCEDURES Final Result from Last 3 Months Insurance [employer] MEDICARE ADVANTAGE Advance Directives * Full Code (Latest Code Status on File) Date Activated Date Inactivated Comments 01/13/2024 4:40 PM 01/13/2024 7:47 PM * Full Code Date Activated Date Inactivated Comments 04/10/2023 9:58 PM 04/11/2023 5:43 PM Care Teams Monorail Car Operator Relationship Specialty [place] [address] [place] [address] #[facility] - General 07/04/22
--- OUTSIDE RECORDS SUMMARY | 2025-01-06 11:54 | XMS_ITS | Encounter Summary ---
Author Organization [facility] Address [address] [place] [address] Care Team Providers Care Family Nurse Practitioner Name Role Phone Sonali Ponce MD Primary Care Provider [phone] Encounter Details Date Type Department Care Team (Late st Contact Info) Description 11/14/2024 Orders Only [facility] [address] [place] [address] Titi Dia MD [address] [place] [address] Social History Tobacco Use Types [...] place to sleep or slept in a fdc (including now)? No 04/10/2023 Hunger Vital Sign [...] Description 01/09/2025 12:00 PM EDT Hospital Encounter [facility] Heart [facility], [facility] Vascular Center Vascular Lab [address] [place] [address] Param Padron MD [address] [facility] [place] [address] Acute combined systolic and diastolic heart failure (CMS/HCC); AV block 01/09/2025 2:00 PM EDT - 01/09/2025 3:00 PM EDT Surgery [facility] Heart [facility], [facility] Vascular Center Vascular Lab [address] [place] [address] Param Padron MD [address] [place] [address] Pacemaker lead revision 03/03/2025 Hospital Encounter [facility] Heart and Vascular Center Vascular Lab [address] [place] [address] Param Padron MD [address] [place] [address] Scheduled Procedures Name Priority Associated [...] Anatomical Region Laterality Modality Other 11/14/2024 us Titi Dia MD CV IMPLANTABLE CARDIAC DEVICE PROCEDURES Final Result documented in this encounter Visit Diagnoses Not on filedocumented in this encounter Care Teams Family Nurse Practitioner Relationship Specialty Start Date End Date Sonali Ponce MD [address] PCP - General 07/04/22 documented as of this encounter
--- OUTSIDE RECORDS SUMMARY | 2025-01-06 11:54 | XMS_ITS | Clinical Summary ---
Author Organization [facility] Address [address] [place] [address] Care Team Providers Care Camp Director Name Role Phone Winnie Johnson MD Primary Care Provi mervin Hakan Olmedo MD Unavailable [phone] Allergies Active Allergy Reactions Criticality Noted Date Comments Adhesive 03/14/2015 Paper Tape is ok Sulfa (Sulfonamide Antibiotics) Hives 02/23 Medications balsalazide (COLAZAL) 750 mg capsule Take 750 mg by mouth 3 (three) times a day. Active azaTHIOprine (IMURAN) 50 mg tablet Take 2.5 tablets by mouth daily Active venlafaxine (EFFEXOR-XR) 75 MG 24 hr capsule Take 225 mg by mouth daily . Active losartan (COZAAR) 50 MG tablet Take 50 mg by mouth daily. Active amLODIPine (NORVASC) 10 MG tablet Take 10 mg by mouth daily. Active pantoprazole (PROTONIX) 40 MG tablet Take 40 mg by mouth daily. Active buPROPion (WELLBUTRIN XL) 150 MG 24 hr tablet Take 450 mg by mouth daily Take 3 tablets by oral route every day . Active atorvastatin (LIPITOR) 40 MG tablet Take 20 mg by mouth daily Take 1/2 tablet (20mg) by mouth daily . Active azelastine (ASTELIN) 137 mcg (0.1 %) nasal spray 2 sprays by Each Nare route 2 (two) times a day . Active cycloSPORINE (RESTASIS) 0.05 % ophthalmic emulsion Administer 1 drop to both eyes 2 (two) times a day. Active mesalamine (CANASA) 1000 MG suppository Insert 1,000 mg into the rectum nightly. Active polysaccharide iron complex (NIFEREX) 150 mg iron capsule Take 150 mg by mouth 2 (two) times a day. Active aspirin 81 MG EC tablet Take 81 mg by mouth daily. Active fish oil-dha-epa 1,200-144-216 mg cap Take 1,200 mg by mouth 3 (three) times a day. Active fluticasone (FLONASE) 50 mcg/actuation nasal spray Instill 1 spray into each nostril daily. 6 Active KLOR-CON/EF 25 mEq disintegrating tablet Take 25 mEq by mouth daily. 6 Active VIT A/VIT C/VIT E/ZINC/COPPER (ICAPS AREDS ORAL) Take 2 capsules by mouth daily. Active levothyroxine (SYNTHROID, LEVOTHROID) 125 MCG tablet Take 125 mcg by mouth once daily . Active cholecalciferol, vitamin D3, (VITAMIN D3) 5,000 unit Tab tablet Take 5,000 Units by mouth daily. Active meloxicam (MOBIC) 15 MG tablet Take 15 mg by mouth daily. 7 Active cyanocobalamin (vitamin B-12) 1000 MCG tablet Take 1,000 mcg by mouth daily. Active QUEtiapine (SEROQUEL) 25 MG tablet Take 25 mg by mouth nightly. Active traMADol (ULTRAM) 50 mg tablet Take 50 mg by mouth 2 (two) times a day as needed for pain . Active amiodarone (CORDARONE) 200 MG tabletIndications: PAF (paroxysmal atrial fibrillation) ([facility]) TAKE 1 TABLET DAILY 90 tablet 3 0 Active Synthroid 100 mcg tablet Take 1 capsule by mouth daily . 0 Active Active Problems Problem Noted Date Diagnosed Date Fecal impaction 07/02/2018 PAF (paroxysmal atrial fibrillation) 04/08/2017 USP current use of 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 drug 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 04/08/2017 Obesity 04/08/2017 Family History Medical History Relation Comments No Known Problems Brother Kidney disease Father Valvular heart disease Father No Known Problems Maternal Grandfather No Known Problems Maternal Grandmother No Known Problems Mother No Known Problems Paternal Grandfather No Known Problems Paternal Grandmother No Known Problems Sister Relation Status Comments Brother Father Maternal Grandfather Maternal Grandmother Mother Paternal Grandfather Paternal Grandmother Sister Social History Tobacco Use Types Packs/Day Years Used Date Smoking Tobacco: Former Cigarettes Q uit: 05/25/1969 Smokeless Tobacco: Never Alcohol Use Standard Drinks/Week Comments No 0 (1 standard drink = 0.6 oz pur e alcohol) Comments No Sex and Gender Information Value Date Recorded Sex Assigned at Not on file Legal Sex Female 1:33 AM EDT Gender Identity Female 07/02/2018 5:32 AM EST Sexual Orientation Straight 07/02/2018 6: 00 AM EST Last Filed Vital Signs Vital Sign Reading Time Taken Comments Blood Pressure 116/68 01/06/2020 10:18 AM EDT Pulse 57 01/06/2020 10:18 AM EDT Temperature 37 C (98.6 F) 07/02/2018 5:27 AM EST Respiratory Rate 16 07/02/2018 9:02 AM EST Oxygen Saturation 96% 07/02/2018 9:02 AM EST Inhaled Oxygen Concentration - - Weight 72.7 kg (160 lb 3.2 oz) 01/06/2020 10:18 AM EDT Height 162.6 cm (5' 4 ) 01/06/2020 10:18 AM EDT Body Mass Index 27.5 01/06/2020 10:18 AM EDT Plan of Treatment Health Maintenance Due Date Last Done Comments Dexa Scan 1940 Depression Screening/Follow- Up (PHQ-2/9) 1952 Zoster Vaccines (1 of 2) 1990 Falls Risk Assessment 2005 Pneumococcal Vaccine: Age 50 + (2 of 2 - PCV20 or PCV21) 11/15/2015 11/14/2014 Respiratory Syncytial Virus Immunization: Risk, 60-74 Risk, or 75+ (1 - 1-dose 75+ series) 12/18/2015 Wellness Visit 02/10/2020 02/09/2019 COVID-19 Vaccine ( - 2023-2 5 season) 2024 Influenza Vaccine (#1) 2025 9, 01/23/2017, 03/16/2015, Additional history exists Tetanus: Every 10yrs 05/03/2031 05/03/2021 Insurance [employer] MEDICARE PLAN (PPO) Care Teams Camp Director Relationship Specialty Start Date End Date Winnie Johnson MD PCP - General 06/06/11 Hakan Olmedo MD Internal Review And Audit Compliance Cardiology 02/20/15
--- OUTSIDE RECORDS SUMMARY | 2025-01-06 11:54 | XMS_ITS | Encounter Summary ---
Author Organization [facility] Address [address] [place] [address] Care Team Providers Care Structural Architect Name Role Phone Sonali Ponce MD Primary Care Provider [phone] Encounter Details Date Type Department Care Team (Late st Contact Info) Description 09/13/2024 Orders Only [facility] [address] [place] [address] Titi Dia MD [address] [place] [address] Social History Tobacco Use Types Packs/Day Years Used Date Smoking Tobacco: Former Cigarettes Smokeless Tobacco: Never Humiliation, Afraid, Rape, and Kick questionnair e [...] and heating? Not hard at all 04/10/2023 [place] Safety & Environment Answer Date Rec orded [...] place to sleep or slept in a snf (including now)? No 04/10/2023 Hunger Vital Sign [...] Description 01/09/2025 12:00 PM EDT Hospital Encounter [facility] Heart [facility] [place] [facility] [address] [place] [address] Param Padron MD [address] [facility] [place] [address] Acute combined systolic and diastolic heart failure (CMS/HCC); AV block 01/09/2025 2:00 PM EDT - 01/09/2025 3:00 PM EDT Surgery [facility] Heart [facility] [place] [facility] [address] [place] [address] Param Padron MD [address] [place] [address] Pacemaker lead revision 03/03/2025 Hospital Encounter [facility] Vascular Lab [address] [place] [address] Param Padron MD [address] [place] [address] Scheduled Procedures Name Priority Associated Diagnoses Date/Ti me Atrial Fib Ablation w/ PVI Paroxysmal atrial fibrillation (CMS/HCC) documented as of this encounter Procedures Procedure Name Priority Date/Time Associated Diagnosis Comments CARDIAC DEVICE CHECK - REMOTE - PACEMAKER Routine 09/13/2024 12:00 AM EDT documented in this encounter Results * Cardiac device check - Remote pacemaker (09/13/2024 12:00 AM EDT) Anatomical Region Laterality Modality Other 09/13/2024 Titi Dia MD CV IMPLANTABLE CARDIAC DEVICE PROCEDURES Final Result documented in this encounter Visit Diagnoses Not on filedocumented in this encounter Care Teams Structural Architect Relationship Specialty Start Date End Date Sonali Ponce MD [address] PCP - General 07/04/22 documented as of this encounter
--- OUTSIDE RECORDS SUMMARY | 2025-01-06 11:54 | XMS_ITS | Clinical Summary ---
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 12/04/2022 Active Eliquis 5 MG tablet Take 5 mg by mouth in the morning and 5 mg before bedtime. 12/04/2022 Active atorvastatin (Lipitor) 20 MG tablet Take 20 mg by mouth in the morning. 09/17/2022 Active azaTHIOprine (Imuran) 50 MG tablet Take 100 mg by mouth in the morning. 11/28/2022 Active balsalazide (Colazal) 750 MG capsule Take 750 mg by mouth in the morning and 750 mg in the evening and 750 mg before bedtime. 12/04/2022 Active buPROPion XL (Wellbutrin XL) 150 MG 24 hr tablet Take 150 mg by mouth in the morning. 11/14/2022 Active levothyroxine (Synthroid, Levoxyl) 100 MCG tablet Take 100 mcg by mouth in the morning. Take before meals. 12/04/2022 Active losartan (Cozaar) 50 MG tablet Take 50 mg by mouth in the morning. 12/04/2022 Active metoprolol succinate XL (Toprol-XL) 25 MG 24 hr tablet Take 25 mg by mouth in the morning. 12/03/2022 Active pantoprazole (ProtoNix) 40 MG EC tablet Take 40 mg by mouth in the morning. Take before meals. 09/20/2022 Active potassium chloride CR (Klor-Con) 8 MEQ ER tablet Take 8 mEq by mouth in the morning and 8 mEq before bedtime. 10/10/2022 Active venlafaxine XR (Effexor XR) 75 MG 24 hr capsule Take 75 mg by mouth in the morning. 09/22/2022 Active amiodarone (Pacerone) 200 MG tablet Take by mouth. 02/17/2023 Active Azelastine HCl 137 MCG/SPRAY solution USE 1 SPRAY INTO EACH NOSTRIL EVERY 12 HOURS 12/10/2023 Active Farxiga 10 MG Take 10 mg by mouth in the morning. Active Active Problems No known active problems Family History Medical History Relation Name Comments Arthritis Father Heart disease Father Arthritis Mother Relation Name Status Comments Father Mother Social History Tobacco Use Types Packs/Day Years Used Date Smoking Tobacco: Former Cigarettes Passive Smoke Exposure: Never Smokeless Tobacco: Never Tobacco Cessation:Counseling Given: Yes Alcohol Use Standard Drinks/Week Comments Never 0 (1 standard drink = 0.6 oz pur e alcohol) Comments Unknown Sex and Gender Information Value Date Recorded Sex Assigned at Not on file Legal Sex Female 11:51 PM EDT Gender Identity Not on file Sexual Orientation Not on file Last Filed Vital Signs Vital Sign Reading Time Taken Comments Blood Pressure 126/82 02/11/2024 4:26 PM EDT Pulse 74 02/11/2024 4:26 PM EDT Temperature - - Respiratory Rate 18 02/11/2024 4:26 PM EDT Oxygen Saturation - - Inhaled Oxygen Concentration - - Weight 75.3 kg (166 lb) 02/11/2024 4:26 PM EDT Height 160 cm (5' 3 ) 02/11/2024 4:26 PM EDT Body Mass Index 29.41 02/11/2024 4:26 PM EDT Plan of Treatment Upcoming Encounters Date Type Department Care Team (Late st Contact Info) Description 01/19/2025 2:00 PM EDT Office Visit [facility] [address] [place] [address] Sruthi Calvillo MD [address] [place] [address] Health Maintenance Due Date Last Done Comments Pneumococcal Vaccine: 65+ Ye ars (2 of 2 - PPSV23) 04/10/2018 04/10/2017, 11/14/2014 Influenza Vaccine (#1) 2025 3, 02/09/2019, 03/05/2018, Additional history exists Insurance [employer] Care Teams Solid Waste Collection Worker Relationship Specialty Start Date End Date Sonali Ponce MD PCP - General Family Medicine 12/11/22
--- OUTSIDE RECORDS SUMMARY | 2025-01-06 12:01 | XMS_ITS | CCD ---
Author Organization [facility] ion Partnership [facility] Care Team Providers Care Senior Director Marketing Name Role Phone Nia Johnson Unavailable Leonora Saunders Unavailable Unavailabl e Unavailable Primary Care Provider Unavailismael Johnson [facility] Primary Care Provider Leonora Saunders Unavailable Juni Johnsonine [place] Primary Care Provider Leonora Saunders Unavailable Leonora Saunders Unavailable Lissa [facility] Primary Care Provider LISSA [facility] Unava ilable LEONORA SAUNDERS Attending Unavailabl e LEONORA SAUNDERS Referring Unavailabl e LISSA [facility] Care Unava ilable LEONORA SAUNDERS Admitting Unavailabl e LEONORA SAUNDERS [facility] Care Unava ilable LEONORA SAUNDERS Attending Unavailismael e LISSA [facility] Unava ilable LEONORA SAUNDERS Admitting Unavailabl e LEONORA SAUNDERS Referring [facility]ailabl [facility] Leonora Saunders Unavailable Unavailismael e Lissa SCHAEFFER, [facility] Provi mervin Leonora aSunders MD Unavailable Boyd Bustamante Unavailable DIANNA, DR [...] Unavailable BUSTAMANTE, DR BOYD Miller Admitting Unavailable GIANNHEBERT, NIA Attending Unavailable GIANNETTO, NIA Attending Unavailable GIANNETTO, NIA Attending Unavailable GIANNETTO, NIA Attending Unavailable GIANNETTSabiha, NIA Attending Unavailable Bustamante Boyd SCHAEFFER Primary Care Provider SRUTHI CALVILLO Attending Unavailable UZIEL CAMARENA Attending Unavailable SRUTHI CALVILLO Attending Unavailable UZIEL CAMARENA Attending Unavailable Boyd Bustamante MD Primary Care Provider [phone] Ly DO, Kate Frias Attending Provider [phone] Ly, Kate L Admitting Unavailable Ly, Kate L Attending Unavailable Boyd Bustamante Primary Care Unavailable Ly, Kate L Admitting Unavailable Ly, Kate L Attending Unavailable Boyd Bustamante Primary Care Unavailable PARAM PADRON Referring Unavailable KIMBER, PARAM Attending Unavailable KIMBER, PARAM Referring Unavailable KIMBER, PARAM Referring Unavailable ADRIANEJOVANNY Referring Unavailable ADRIANEJOVANNY Referring Unavailable KIMBER, PARAM Referring Unavailable KIMBER, PARAM Referring Unavailable KIMBER, PARAM Referring Unavailable KIMBER, PARAM Referring Unavailable KIMBER, PARAM Attending Unavailable KIMBER, PARAM Referring Unavailable JUS REVELES Attending Unavailable KIMBER, PARAM Referring Unavailable KIMBER, PARAM Referring Unavailable KIMBER, PARAM Attending Unavailable JUS REVELES Attending Unavailable KIMBER, PARAM Admitting Unavailable KIMBER, PARAM Attending Unavailable KIMBER, PARAM Referring Unavailable Allergies Allergy Classification Reported Allergen(s) Allergy Type Date of Onset Reaction(s) Facility (20 sources) Adhesive Tape; Translations: [Unknown] Propensity to adverse reactions to drug 03-14-20 15 Unknown, [facility] Work Phone: (20 sources) Sulfonamides (Antibiotic); Translations: [SULFA (SULFONAMIDE ANTIBIOTICS)] Propensity to adverse reactions to drug 03-14-20 15 [facility] Work Phone: (3 sources) amoxicillin Drug Allergy 03-14-20 15 [facility] Work Phone: (10 sources) Sulfonamides (Antibiotic) Propensity to adverse reactions to drug 03-14-20 15 [facility] (10 sources) Sulfonamides (Antibiotic) Propensity to adverse reactions Unknown FRM Study Course [facility] Other (1 source) Sulfonamides (Antibiotic) Drug allergy (disorder) 05-10-20 19 [facility] Repository (3 sources) Adhesive Tape Drug allergy Unknown [facility] Other (2 sources) Allergies Reconciled Propensity to adverse reactions Unknown FRM Study Course [facility] Other (1 source) ALLERGIES NOT ON FILE; Translations: [ALLERGIES NOT ON FILE] Propensity to adverse reactions (disorder) [facility] Repository (7 sources) Adhesive Tape; Translations: [adhesive tape] Allergy to substance 10-01-19 24 [facility] (6 sources) Wound Dressing Adhesive Drug Allergy 03-14-20 15 Itching [facility] (1 source) Sulfonamides (Antibiotic) Drug allergy (disorder) 08-09-19 25 [facility] Repository Medications Current Medications Medication Drug Class(es) Dates Sig (Normalized) Sig (Original) amiodarone hydrochloride 200 mg oral tablet (20 sources) Antiarrhythmic Start: 02-17-2023 amiodarone (Pacerone) 200 MG tablet Take by mouth. 02/17/2023 Active Start: 09-26-2019 amiodarone (CO RDARONE) 200 MG tablet Indications: PAF (paroxysmal atrial [...] (20 sources) Dihydropyridine Calcium Channel Nikunj Start: 12-04-2022 take 1 tablet by mouth once daily apixaban 5 mg oral tablet (13 sources) Factor Xa Inhibitor Start: 12-04-2022 take 1 tablet by mouth twice daily take 1 tablet by mouth every twe lve hours Eliquis 2.5 MG 1 tablet twice a day Active aspirin 81 mg delayed release oral tablet (20 sources) Platelet Aggregation Inhibitor, Nonsteroidal Anti-inflammatory Drug take 1 tablet by mouth once daily aspirin 81 MG EC tablet Take 81 mg by mouth daily. 0 Active azaTHIOprine 50 mg oral tablet (20 sources) Purine Antimetabolite Start: 08-09-19 take 1 tablet by mouth once daily Azathioprine 50 mg tablet Active 0 .ROUTE .COMPLEX August 08, 2024 3:14pm TAKE3 TABLETS BY MOUTH DAILY Start: 05-16-2024 End: 08-08-2024 take 2 tablets by mouth once daily Azathioprine 50 mg tablet Discontinued 0 .ROUTE .COMPLEX 180 June 17, 2024 9:40am August 08, 2024 3:15pm TAKE 2 TABLETS BY MOUTH DAILY Start: 10-01-2023 take 2 tablets by mi ut once daily Start: 11-28-2022 End: 05-16-2024 take 2 tablets by mouth once daily azaTHIOprine 50 MG as directed Orally Active take 2.5 tablets by mouth once daily azaTHIOprine (IMURAN) 50 mg tablet Take 2.5 tablets by mouth daily 0 Active azelastine hydrochloride 0.137 mg/actuat metered dose nasal spray (20 sources) Histamine-1 Receptor Antagonist Start: 12-10-2023 take 1 spray(s) nasal route every twelve hours Azelastine HCl 137 MCG/SPRAY solution USE 1 SPRAY INTO EACH NOSTRIL EVERY 12 HOURS 12/10/2023 Active Start: 07-09-2023 take 137 ug nasal ro [place] every twelve hours Azelastine 137 mcg (0.1 %) aerosol,spray Active 137 MCG INTRANASAL Every 12 hours [...] mg oral capsule (20 sources) Aminosalicylate Start: 11-03-2023 End: 06-17-2024 take 2 capsules by mouth twice daily Balsalazide 750 mg capsule Active 0 .ROUTE .COMPLEX 360 June 17, 2024 9:40am TAKE 2 CAPSULES BY MOUTH TWICE A DAY FOR 90 DAYS Start: 09-30-2023 End: 11-03-2023 take 2 capsules by mouth twice daily Start: 12-04-2022 take 1 capsule by mo uth in the morning, then take 1 capsule by mouth in the evening, then take 1 capsule by mouth at bedtime balsalazide (Colazal) 750 MG capsule Take 750 mg by mouth in the morning and 750 mg in the evening and 750 mg before bedtime. 12/04/2022 Active take 2 capsules by m outh every twelve hours Balsalazide Disodium 750 MG 2 capsules Orally Twice a day for 90 days Active take 1 capsule by mo uth three times daily balsalazide (COLAZAL) 750 mg capsule Take 750 mg by mouth 3 (three) times a day. 0 Active cholecalciferol 0.125 mg oral tablet (20 sources) Vitamin D take 1 tablet by mouth once daily cholecalciferol, vitamin D3, (VITAMIN D3) 5,000 unit Tab tablet Take 5,000 Units by mouth daily. 0 Active cycloSPORINE 0.5 mg/ml ophthalmic suspension (20 sources) Calcineurin Inhibitor Immunosuppressant Start: 2024 End: 2024 take 1 drop(s) into the eye(s) in the morning cycloSPORINE (Restasis MultiDose) 0.05 % ophthalmic emulsion Indications: KCS (keratoconjunctivitis sicca) Administer 1 drop into both eyes in the morning and 1 drop before bedtime. 180 mL 11 07/18/2024 10/16/2024 Active take 1 drop(s) into the eye(s) twice daily Restasis 0.05 % 1 drop into affected eye Ophthalmic Twice a day Active take 1 drop(s) into the eye(s) twice daily cycloSPORINE (RESTASIS) 0.05 % ophthalmi c emulsion Administer 1 drop to both eyes 2 (two) times a day. 0 Active dapagliflozin 10 mg oral tablet (12 sources) Sodium-Glucose Cotransporter 2 Inhibitor Start: 10-01-2023 take 1 tablet by mouth once daily Dapagliflozin Propanediol (Farxiga) 10 mg tablet Active 10 MG PO Daily October 01, 2023 12:00am Fish Oil-Dha-Epa 1,200 Mg-144 Mg-216 Mg Capsule (12 sources) take 1 capsule by mouth three times daily fish oil-dha-epa 1,200-144-216 mg cap Take 1,200 mg by mouth 3 (three) times a day. Active famotidine 40 mg oral tablet (3 sources) Histamine-2 Receptor Antagonist Start: 08-08-2024 take 1 tablet by mouth once daily at bedtime Famotidine (Pepcid) 40 mg tablet Active 40 MG PO Daily at bedtime August 08, 2024 12:00am fish oil-dha-epa 1,200-144-216 mg cap (15 sources) take 1 capsule by mouth three times daily fish oil-dha-epa 1,200-144-216 mg cap Take 1,200 mg by mouth 3 (three) times a day. 0 Active Fluticasone Propionate 93 MCG/ACT (10 sources) Fluticasone Propionate 93 MCG/ACT 2 sprays (1 spray in each nostril) Nasally Twice a day Active furosemide 20 mg oral tablet (5 sources) Loop Diuretic Start: 04-14-2024 Furosemide 20 mg tablet Active 20 MG PO .prn April 14, 2024 1:00am Klor-Con/Ef 25 Meq Effervescent Tablet (2 sources) Start: 02-02-2016 take 1 tablet by mouth once daily, then take 1 tablet by mouth KLOR-CON/EF 25 mEq disintegrating tablet Take 25 mEq by mouth daily. 02/02/2016 Active levothyroxine sodium 0.1 mg oral tablet (20 sources) l-Thyroxine Start: 04-11-2024 End: 08-09-2024 take 1 tablet by mouth once daily Levothyroxine 100 mcg tablet Active 0 .ROUTE .COMPLEX August 09, 2024 10:36am TAKE 1 TABLET BY MOUTH DAILY Start: 12-04-2022 End: 04-11-2024 take 1 tablet by mouth once daily in the morning Start: 11-06-2019 take 1 capsule by mo uth once daily Synthroid 100 mcg tablet Take 1 capsule by mouth daily . 0 11/06/2019 Active Start: 03-01-2016 End: 04-08-2017 take 1 tablet by mouth once daily levothyroxine (SYNTHROID, LEVOTHROID) 150 MCG tablet Take 150 mcg by mouth daily. 03/01/2016 04/08/2017 Discontinued take 1 tablet by tryo th once daily in the morning Levothyroxine [...] (20 sources) Angiotensin 2 Receptor Nikunj Start: 06-17-2024 take 1 tablet by mouth once daily Losartan 50 mg tablet Active 0 .ROUTE .COMPLEX June 17, 2024 9:40am TAKE 1 TABLET BY MOUTH EVERY DAY FOR 90 DAYS Start: 12-04-2022 End: 06-17-2024 take 1 tablet by mouth once daily meloxicam 15 mg oral tablet (20 sources) [...] Active metoprolol tartrate 25 mg oral tablet (13 sources) beta-Adrenergic Nikunj Start: 09-30-2023 take 1 tablet by mouth once daily Start: 12-03-2022 take 1 tablet by troy th every twenty-four hours in the morning metoprolol succinate XL (Toprol-XL) 25 MG 24 hr tablet Take 25 mg by mouth in the morning. 12/03/2022 Active Metoprolol Tartr ate Active polysaccharide iron complex 150 mg oral capsule (20 sources) take 1 capsule by mouth twice daily polysaccharide iron complex (NIFEREX) 150 mg iron capsule Take 150 mg by mouth 2 (two) times a day. 0 Active Potassium Bicarb-Citric Acid (Klor-Con/Ef) 25 mEq tablet, effervescent (9 sources) Start: 08-08-2024 Potassium Bicarb-Citric Acid (Klor-Con/Ef) 25 mEq tablet, effervescent Active 25 MEQ PO Daily August 08, 2024 11:48am Start: 10-01-2023 End: 08-08-2024 Potassium Bicarb-Citric Acid (Klor-Con/Ef) 25 mEq tablet, effervescent Discontinued 25 MEQ PO Daily October 01, 2023 12:00am August 08, 2024 11:48am Start: 10-01-2023 Potassium Bica rb-Citric Acid (Klor-Con/Ef) 25 mEq tablet, effervescent Active 25 MEQ PO Daily September 30, 2023 11:00pm Start: 10-01-2023 Potassium Bica rb-Citric Acid (Klor-Con/Ef) 25 mEq tablet, effervescent Active [...] sources) Serotonin and Norepinephrine Reuptake Inhibitor Start: 03-09-20 take 1 capsule by mouth three times daily Venlafaxine 75 mg capsule,extended release 24hr Active 75 MG PO Three times daily March 09, 2024 9:51am Start: 12-10-2023 End: 03-09-2024 take 1 capsule by mouth once daily Venlafaxine 75 mg capsule,extended release 24hr Discontinued 75 MG PO Daily December 10, 2023 8:56am March 09, 2024 9:51am Start: 09-30-2023 End: 12-10-2023 take 3 capsules by mouth once daily Start: 09-22-2022 take 1 capsule by [facility] every twenty-four hours in the morning venlafaxine XR (Effexor XR) 75 MG 24 hr capsule Take 75 mg by mouth in the morning. 09/22/2022 Active Venlafaxine HCl ER 75 mg TAKE 3 CAPSULES DAILY Active take 1 capsule by mo ut every twenty-four hours Venlafaxine HCl ER 75 MG 1 capsule with food Orally Once a day Active take 1 capsule by mo uth once daily venlafaxine (EFFEXOR-XR) 75 MG 24 hr capsule [...] Drug Class(es) Dates Sig (Normalized) Sig (Original) atorvastatin 20 mg oral tablet (20 sources) HMG-CoA Reductase Inhibitor Start: 09-17-2022 End: 06-09-2024 take 1 tablet by mouth once daily take 0.5 tablet by mouth once da [...] 20 mg by mouth daily . Active 24 hr buPROPion hydrochloride 150 mg extended release oral tablet (20 sources) Aminoketone Start: 09-30-2023 End: 10-01-2023 take 1 tablet by mouth once daily in the morning Bupropion Hcl 150 mg tablet extended release 24 hr Discontinued 150 MG PO Every morning September 30, 2023 12:00am October 01, 2023 3:03pm Start: 11-14-2022 take 1 tablet by troy every twenty-four hours in the morning buPROPion XL (Wellbutrin XL) 150 MG 24 hr tablet Take 150 mg by mouth in the morning. 11/14/2022 Active take 3 tablets by mo [facility] every twenty-four hours buPROPion HCl ER (XL) 150 MG 3 tablet Orally Once a day for 90 days Active take 1 tablet by troy th three times daily buPROPion HCl ER (XL) 150 MG 1 tablet Orally three times daily for 90 days Active take 1 tablet by troy every twenty-four hours buPROPion HCl ER (XL) 150 MG 1 tablet in the morning Orally Once a day Active Cyclosporine (Restasis) 0.05 % dropperette (6 sources) Start: 09-30-2023 End: 10-01-2023 take 1 drop(s) into the eye(s) every twelve hours Cyclosporine (Restasis) 0.05 % dropperette Discontinued 1 DROPS EYE-BOTH Every 12 hours September 29, 2023 11:00pm October 01, 2023 1:47pm Start: 09-30-2023 End: 10-01-2023 take 1 drop(s) [...] 10 mg by mouth nightly. 04/08/2017 Discontinued pantoprazole 40 mg delayed release oral tablet (20 sources) Proton Pump Inhibitor Start: 09-20-2022 End: 12-10-2023 take 1 tablet by mouth once daily Pantoprazole 40 mg tablet,delayed release (DR/EC) Discontinued 1 TAB PO Daily September 30, 2023 12:00am October 02, 2023 1:32pm FreeTextSig: TAKE 1 TABLET DAILY; Note: Source Status: Start; Refills: 3; Qty: 90 Tablet; Provider: Dianna Lyon ( ) potassium chloride 8 meq extended release oral tablet (20 sources) Start: 09-30-2023 End: 10-01-2023 take 2 tablets by mouth twice daily at mealtime Start: 10-10-2022 take 1 tablet by troy th in the morning potassium chloride CR (Klor-Con) 8 MEQ ER tablet Take 8 mEq by mouth in the morning and 8 mEq before bedtime. 10/10/2022 Active take 2 tablets by mo uth twice [...] atrial fibrillation; Translations: [Paroxysmal atrial fibrillation] Onset: 7 04-08-2017 Chronic Conduction disorders (13 sources) Cardiac pacemaker in situ; Translations: [Presence of cardiac pacemaker] Onset: 3 10-07-2023 Chronic Congestive heart failure; nonhypertensive (4 sources) Acute combined systolic (congestive) and diastolic (congestive) heart failure; Translations: [Biventricular heart failure] Onset: 4 Chronic Diabetes mellitus without complication (12 sources) Impaired fasting glycemia; Translations: [Impaired fasting glucose] Episodic Disorders of lipid metabolism (17 sources) Hyperlipidemia; Translations: [Hyperlipidemia, unspecified] Onset: 3 Chronic Esophageal disorders (20 sources) Gastroesophageal reflux disease; Translations: [Gastro-esophageal reflux disease without esophagitis] Onset: 5 10-07-2023 Chronic Essential hypertension (20 sources) Hypertensive disorder; Translations: [Essential (primary) hypertension] Onset: 7 04-08-2017 Chronic Heart valve disorders (2 sources) Nonrheumatic mitral (valve) insufficiency; Translations: [Nonrheumatic mitral (valve) insufficiency] Onset: 4 Chronic Inflammation; infection of eye (except that caused by tuberculosis or sexually transmitteddisease) (1 source) Keratoconjunctivitis sicca; Translations: [Keratoconjunctivitis sicca, not specified as Sjogren's, unspecified eye] 07-18-2024 Chronic Mood disorders (2 sources) Depression; Translations: [Depression, unspecified] Chronic Other aftercare (1 source) Encounter for removal of sutures Episodic Other circulatory disease (3 sources) Low blood pressure; Translations: [Hypotension, unspecified] 04-14-2024 Episodic Other connective tissue disease (1 source) Pain in right foot Episodic Other connective tissue disease (1 source) Pain in left foot Episodic Other hematologic conditions (1 source) Precipitous drop in hematocrit; Translations: [Precipitous drop in hematocrit] Onset: 5 Episodic Other infections; including parasitic (3 sources) H/O: colitis; Translations: [Personal history of other infectious and parasitic diseases] 08-08-2024 Episodic Other infections; including parasitic (4 sources) Personal history of other infectious and parasitic diseases; Translations: [Personal history of other diseases of digestive system] Onset: 5 08-08-2024 Episodic Other nutritional; endocrine; and metabolic disorders (20 sources) Obesity; Translations: [Obesity, unspecified] Onset: 7 04-08-2017 Chronic Other upper respiratory disease (10 sources) Allergic rhinitis; Translations: [Allergic rhinitis, unspecified] Chronic Other upper respiratory disease (1 source) Allergic rhinitis, unspecified Chronic Regional enteritis and ulcerative colitis (19 sources) Ulcerative colitis; Translations: [Ulcerative colitis, unspecified, without complications] Onset: 5 04-14-2024 Chronic Residual codes; unclassified (10 sources) Obstructive sleep apnea syndrome; Translations: [Obstructive sleep apnea (adult) (pediatric)] Chronic Residual codes; unclassified (5 sources) Obstructive sleep apnea (adult) (pediatric); Translations: [OBSTRUCTIVE SLEEP APNEA] Onset: 3 Chronic Residual codes; unclassified (10 sources) Edema; Translations: [Localized edema] Episodic Residual codes; unclassified (2 sources) Localized edema; Translations: [Localized edema] Episodic Retinal detachments; defects; vascular occlusion; and retinopathy (2 sources) Nonexudative age-related macular degeneration; 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, right eye, intermediate dry stage] 07-18-2024 Chronic Spondylosis; intervertebral disc disorders; other back problems (19 sources) Low back pain; Translations: [Lumbar pain] 10-01-2023 Episodic Thyroid disorders (14 sources) Hypothyroidism; Translations: [Hypothyroidism, unspecified] Onset: 3 Chronic Unclassified (17 sources) Drug therapy finding; Translations: [[facility] current use of 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 drug] Onset: 7 04-08-2017 Unclassified (10 sources) Long-term current use of drug therapy; Translations: [exterminator current use of 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 drug] Onset: 7 04-08-2017 Past or Other Problems Problem Classification Problem Date Documented Da te Episodic/Chronic Intestinal obstruction without hernia (16 sources) Fecal impaction; Translations: [Fecal impaction] Onset: 07-02-2018 07-02-2018 Episodic Mycoses (1 source) Onychomycosis; Translations: [Tinea unguium] 02-11-2024 Episodic Other acquired deformities (1 source) Deformity of metatarsal; Translations: [Unspecified acquired deformity of right lower leg] 02-11-2024 Episodic Other acquired deformities (1 source) Deformity of metatarsal; Translations: [Unspecified acquired deformity of left lower leg] 02-11-2024 Episodic Other aftercare (1 source) Long-term current use of drug therapy; Translations: [Other ocean transportation intermediary (current) drug therapy] Onset: 04-08-2017 04-08-2017 Episodic Other connective tissue disease (1 source) Pain of toes of bilateral feet; Translations: [Pain in right toe(s)] 02-11-2024 Episodic Results Test Name Value Interpretation Reference Range Facility Orders Onlyon 12-15-2024 Orders Only [id number] Debra García 1940 Provider Department Center 12/15/2024 PARAM STODDARD [facility] Family History Family Status - Relation Status Age at Mother Father Normal [facility] Office Visiton 12-13-2024 Follow-up visit [id number] Debra García 1940 Date Provider Department Center 12/13/2024 PARAM STODDARD [facility] Family History Family Status - Relation Status Age at Mother Father Level of Service:93649 CT OFFICE/OUTPATIENT ESTABLISHED HIGH MDM 40 MIN Normal [facility] Office Vis[facility] 10-25-2024 Follow-up visit [id number] Debra García 1940 F Date Provider Department Center 10/25/2024 PARAM STODDARD [facility] Family History Family Status - Relation Status Age at Mother Father Level of Service:63858 CT OFFICE/OUTPATIENT ESTABLISHED MOD MDM 30 MIN Normal [facility] Orders Onlyon 10-14-2024 Orders Only [id number] Debra García 1940 F Date Provider Department Center 10/14/2024 PARAM STODDARD [facility] CARD [facility] No family history on file Normal [facility] Ferritinon 08-25-2024 Ferritin [Mass/Vol] 8.2 ng/mL Low 11.0-306.8 [facility] Comment on above: Result Comment: PERF ORMED BY: [place] [address] PATHOLOGIST HEAD END DESIZING MACHINE OPERATOR DEEPTI STEPHENSON M.D. Performed By: #### F E and TIBC, TODD #### [address] Ferritin [Mass/volume] in Se rum or PlasmaOrdered By: Kate Quiros on 08-25-2024 Ferritin [Mass/Vol] Ferritin [Mass/volume] in Serum or Plasma Low 11.0-306.8 [facility] Iron [Mass/volume] in Serum or PlasmaOrdered By: Kate Quiros on 08-25-2024 Iron [Mass/Vol] Iron [Mass/volume] in Serum or Plasma Low 50-212 [facility] Iron and TIBC Profileon - % Iron Saturation 12.7 % Low 20-50 [facility] Comment on above: Performed By: #### F E and TIBC, TODD #### [address] Iron [Mass/Vol] 47 ug/dL Low 50-212 [facility] Comment on above: Performed By: #### F E and TIBC, TODD #### [address] Total Iron Binding Capacity 371 ug/dL Normal 255-450 [facility] Comment on above: Performed By: #### F E and TIBC, TODD #### [place] [address] [place] Transferrin [Mass/Vol] 265 mg/dL Normal 203-362 Th e [facility] Comment on above: Performed By: #### F E and TIBC, TODD #### [facility] [address] Serum or plasma iron binding capacity measurement (mass/volume)Ordered By: Kate Quiros on 08-25-2024 Iron binding capacity [Mass/Vol] Iron binding capacity [Mass/volume] in Serum or Plasma 255-450 [facility] Serum or plasma iron saturat ion measurement (mass fraction)Ordered By: Kate Quiros on 08-25-2024 Iron saturation [Mass fraction] Iron saturation [Mass Fraction] in Serum or Plasma Low 20-50 [facility] Transferrin [Mass/volume] in Serum or PlasmaOrdered By: Kate Quiros on 08-25-2024 Transferrin [Mass/Vol] Transferrin [Mass/volume] in Serum or Plasma 203-362 [facility] Alanine aminotransferase [En zymatic activity/volume] in Serum or PlasmaOrdered By: Kate Quiros on 08-08-2024 ALT [Catalytic activity/Vol] Alanine aminotransferase [Enzymatic activity/volume] in Serum or Plasma 7-52 [facility] Albumin [Mass/volume] in Ser um or Plasma by Bromocresol green (BCG) dye binding methoOrdered By: Kate Quiros on 08-08-2024 Albumin BCG dye [Mass/Vol] Albumin [Mass/volume] in Serum or Plasma by Bromocresol green (BCG) dye binding metho 3.5-5.7 [facility] Alkaline phosphatase [Enzyma tic activity/volume] in Serum or PlasmaOrdered By: Kate Quiros on 08-08-2024 ALP [Catalytic activity/Vol] Alkaline phosphatase [Enzymatic activity/volume] in Serum or Plasma 34-104 [facility] Aspartate aminotransferase [ Enzymatic activity/volume] in Serum or PlasmaOrdered By: Kate Ly on 08-08-2024 AST [Catalytic activity/Vol] Aspartate aminotransferase [Enzymatic activity/volume] in Serum or Plasma 13-39 [facility] Basophils Auto (Bld) [#/Vol] Ordered By: Kate Quiros on 08-08-2024 Basophils (Bld) [#/Vol] Automated basoph il count 0.0-0.2 [facility] Basophils/100 WBC Auto (Bld) Ordered By: Kate Quiros on 08-08-2024 Basophils/100 WBC (Bld) Automated basophil % . [facility] Bilirubin.total [Mass/volume ] in Serum or PlasmaOrdered By: Kate Quiros on 08-08-2024 Bilirubin [Mass/Vol] Bilirubin.total [Mass/volume] in Serum or Plasma 0.3-1.0 [facility] C reactive protein [Mass/vol ume] in Serum or PlasmaOrdered By: Kate Quiros on 08-08-2024 CRP [Mass/Vol] C reactive protein [Mass/volume] in Serum or Plasma 0.0-0.5 [facility] C-Reactive Proteinon 025 CRP [Mass/Vol] mg/L Normal 0.0-0.5 [facility] Comment on above: Result Comment: PERF ORMED BY: [address] [place] [address] PATHOLOGIST HEAD END DESIZING MACHINE OPERATOR DEEPTI STEPHENSON M.D. Performed By: #### C BC, CMP, CRP #### [address] Calcium [Mass/volume] in Ser um or PlasmaOrdered By: Kate Quiros on 08-08-2024 Calcium [Mass/Vol] Calcium [Mass/volume] in Serum or Plasma 8.6-10.3 [facility] Carbon dioxide, total [Moles /volume] in Serum or PlasmaOrdered By: Kate Quiros on 08-08-2024 CO2 [Moles/Vol] Carbon dioxide, total [Moles/volume] in Serum or Plasma High 21.0-31.0 [facility] Chloride [Moles/volume] in S diane or PlasmaOrdered By: Kate Quiros on 08-08-2024 Chloride [Moles/Vol] Chloride [Moles/volume] in Serum or Plasma 98-107 [facility] Complete Blood Count Auto Di ffon 08-08-2024 Basophils (Bld) [#/Vol] 0.0 10*3/uL Normal 0.0-0.2 The [facility] Comment on above: Result Comment: PERF ORMED BY: [place] [address] PATHOLOGIST HEAD END DESIZING MACHINE OPERATOR DEEPTI STEPHENSON M.D. Performed By: #### C BC, CMP, CRP #### [place] [address] [place] Basophils/100 WBC (Bld) 0.6 % Normal . T he [facility] Comment on above: Performed By: #### C BC, CMP, CRP #### [place] [address] [place] Eosinophils (Bld) [#/Vol] 0.2 10*3/uL Normal 0.0-0.45 [facility] Comment on above: Performed By: #### C BC, CMP, CRP #### [place] [address] [place] Eosinophils/100 WBC (Bld) 3.3 % Normal . [facility] Comment on above: Performed By: #### C BC, CMP, CRP #### [place] [address] [place] Erythrocyte distribution width (RBC) [Ratio] 17.3 % High 11.9-15.3 [facility] Comment on above: Performed By: #### C BC, CMP, CRP #### [place] [address] [place] Hematocrit (Bld) [Volume fraction] 32.6 % Low 34.0-46.4 [facility] Comment on above: Performed By: #### C BC, CMP, CRP #### [place] [address] [place] Hemoglobin (Bld) [Mass/Vol] 10.9 g/dL Low 11.8-15.4 The [facility] Comment on above: Performed By: #### C BC, CMP, CRP #### [place] [address] [place] Lymphocytes (Bld) [#/Vol] 1.2 10*3/uL Normal 1.00-4.8 [facility] Comment on above: Performed By: #### C BC, CMP, CRP #### [facility] [address] Lymphocytes/100 WBC (Bld) 26.3 % Normal . The [facility] Comment on above: Performed By: #### C BC, CMP, CRP #### [facility] [address] MCH (RBC) [Entitic mass] 30.8 pg Normal 24.7-34.3 The [facility] Comment on above: Performed By: #### C BC, CMP, CRP #### [facility] [address] MCV (RBC) [Entitic vol] 91.6 fL Normal 80-100 [facility] Comment on above: Performed By: #### C BC, CMP, CRP #### [address] Mean Corpuscular HGB Conc 33.6 g/dL Normal 32.0-35.0 The [facility] Comment on above: Performed By: #### C BC, CMP, CRP #### [place] [address] [place] Monocytes (Bld) [#/Vol] 0.5 10*3/uL Normal 0.0-0.8 The [facility] Comment on above: Performed By: #### C BC, CMP, CRP #### [place] [address] [place] Monocytes/100 WBC (Bld) 9.9 % Normal . [facility] Comment on above: Performed By: #### C BC, CMP, CRP #### [facility] [address] [place] [address] [place] Neutrophils (Bld) [#/Vol] 2.8 10*3/uL Normal 1.8-7.7 The [facility] Comment on above: Performed By: #### C BC, CMP, CRP #### [place] [address] [place] Neutrophils/100 WBC (Bld) 59.9 % Normal . The [facility] Comment on above: Performed By: #### C BC, CMP, CRP #### [address] NRBC% 0.1 /100{WBC} Normal 0-0.5 The [facility] Comment on above: Performed By: #### C BC, CMP, CRP #### [address] Platelet mean volume (Bld) [Entitic vol] 8.0 fL Normal 6.3-10.7 The [facility] Comment on above: Performed By: #### C BC, CMP, CRP #### [address] Platelets (Bld) [#/Vol] 220 10*3/uL Normal 150-450 [facility] Comment on above: Performed By: #### C BC, CMP, CRP #### [address] RBC (Bld) [#/Vol] 3.55 10*6/uL Low 3.60-5.[address] [facility] Comment on above: Performed By: #### C BC, CMP, CRP #### [address] WBC (Bld) [#/Vol] 4.6 10*3/uL Normal 3.8-11.6 The [facility] Comment on above: Performed By: #### C BC, CMP, CRP #### [address] Comprehensive Metabolic Pane rose 08-08-2024 Albumin [Mass/Vol] 4.1 g/dL Normal 3.5-5.7 The [facility] Comment on above: Performed By: #### C BC, CMP, CRP #### [address] Albumin/Globulin [Mass ratio] 2.2 {ratio} Normal The [facility] Comment on above: Performed By: #### C BC, CMP, CRP #### [address] ALP [Catalytic activity/Vol] 42 U/L Normal 34-104 [facility] Comment on above: Performed By: #### C BC, CMP, CRP #### [address] ALT [Catalytic activity/Vol] 7 U/L Normal 7-52 [facility] Comment on above: Performed By: #### C BC, CMP, CRP #### [address] Anion gap [Moles/Vol] 9.3 mmol/L Normal 6.0-15.0 The [facility] Comment on above: Performed By: #### C BC, CMP, CRP #### [address] AST [Catalytic activity/Vol] 13 U/L Normal 13-39 The [facility] Comment on above: Performed By: #### C BC, CMP, CRP #### [address] Bilirubin [Mass/Vol] 0.5 mg/dL Normal 0.3-1.0 The [facility] Comment on above: Performed By: #### C BC, CMP, CRP #### [address] Calcium [Mass/Vol] 9.6 mg/dL Normal 8.6-10.3 The [facility] Comment on above: Performed By: #### C BC, CMP, CRP #### [address] Chloride [Moles/Vol] 106 mmol/L Normal 98-107 The [facility] Comment on above: Performed By: #### C BC, CMP, CRP #### [address] CO2 [Moles/Vol] 32.2 mmol/L High 21.0-31.0 The [facility] Comment on above: Performed By: #### C BC, CMP, CRP #### [place] [address] [place] Creatinine [Mass/Vol] 1.00 mg/dL Normal 0.60-1.20 The [facility] Comment on above: Performed By: #### C BC, CMP, CRP #### [address] Estimated GFR 55.898 mL/Min Normal The [facility] Comment on above: Performed By: #### C BC, CMP, CRP #### [address] Globulin (S) [Mass/Vol] 1.9 g/dL Normal T he [facility] Comment on above: Performed By: #### C BC, CMP, CRP #### [address] Glucose [Mass/Vol] 93 mg/dL Normal 70-100 The [facility] Comment on above: Result Comment: [place] Glucose Reference Range is dependent on time and content of last meal. Glucose of more than 200 mg/dL in a nonstressed, ambulatory subject supports the diagnosis of Diabetes Mellitus. ADA recommended reference range Performed By: #### C BC, CMP, CRP #### [address] Potassium [Moles/Vol] 4.5 mmol/L Normal 3.5-5.1 The [facility] Comment on above: Performed By: #### C BC, CMP, CRP #### [address] Protein [Mass/Vol] 6.0 g/dL Low 6.4-8.9 The [facility] Comment on above: Performed By: #### C BC, CMP, CRP #### [address] Sodium [Moles/Vol] 143 mmol/L Normal 136-145 The [facility] Comment on above: Performed By: #### C BC, CMP, CRP #### [address] Urea nitrogen [Mass/Vol] 20 mg/dL Normal 7-25 The [facility] Comment on above: Performed By: #### C BC, CMP, CRP #### [facility] [address] Creatinine [Mass/volume] in Serum or PlasmaOrdered By: Kate Quiros on 08-08-2024 Creatinine [Mass/Vol] Creatinine [Mass/volume] in Serum or Plasma 0.60-1.20 [facility] Eosinophils Auto (Bld) [#/Vo l]Ordered By: Kate Quiros on 08-08-2024 Eosinophils (Bld) [#/Vol] Automated eosinophil count 0.0-0.45 [facility] Eosinophils/100 WBC Auto (Bl d)Ordered By: Kate Quiros on 08-08-2024 Eosinophils/100 WBC (Bld) Automated eosinophil % . [facility] Erythrocyte distribution wid th Auto (RBC) [Ratio]Ordered By: Kate Quiros on 08-08-2024 Erythrocyte distribution width (RBC) [Ratio] Erythrocyte distribution width [Ratio] by Automated count High 11.9-15.3 [facility] Globulin Calc (S) [Mass/Vol] Ordered By: Kate Quiros on 08-08-2024 Globulin (S) [Mass/Vol] Serum globulin measurement by calculation (mass/volume) [facility] Glucose [Mass/volume] in Ser um or PlasmaOrdered By: Kate Quiros on 08-08-2024 Glucose [Mass/Vol] Glucose [Mass/volume] in Serum or Plasma 70-100 [facility] Comment on above: ADA recommended refe rence rangeRandom Glucose Reference Range is dependent on time and content of last meal. Glucose of more than 200 mg/dL in a nonstressed, ambulatory subject supports the diagnosis of Diabetes Mellitus. Hematocrit Auto (Bld) [Volum e fraction]Ordered By: Kate Quiros on 08-08-2024 Hematocrit (Bld) [Volume fraction] Hematocrit [Volume Fraction] of Blood by Automated count Low 34.0-46.4 [facility] Hemoglobin [Mass/volume] in BloodOrdered By: aKte Quiros on 08-08-2024 Hemoglobin (Bld) [Mass/Vol] Hemoglobin [Mass/volume] in Blood Low 11.8-15.4 [facility] Leukocytes [#/volume] correc anila for nucleated erythrocytes in Blood by Automated counOrdered By: Kate Ly on 08-08-2024 WBC corrected for nucl RBC Auto (Bld) [#/Vol] Leukocytes [#/volume] corrected for nucleated erythrocytes in Blood by Automated coun 3.8-11.6 [facility] Lymphocytes Auto (Bld) [#/Vo l]Ordered By: Kate Ly on 08-08-2024 Lymphocytes (Bld) [#/Vol] Lymphocytes [#/volume] in Blood by Automated count 1.00-4.8 [facility] Lymphocytes/100 WBC Auto (Bl d)Ordered By: Kate Ly on 08-08-2024 Lymphocytes/100 WBC (Bld) Lymphocytes/100 leukocytes in Blood by Automated count . [facility] MCH Auto (RBC) [Entitic mass ]Ordered By: Kate Ly on 08-08-2024 MCH (RBC) [Entitic mass] MCH [Entitic mass] by Automated count 24.7-34.3 [facility] MCHC Auto (RBC) [Mass/Vol]Or dered By: Kate Ly on 08-08-2024 MCHC (RBC) [Mass/Vol] MCHC [Mass/volume] by Automated count 32.0-35.0 [facility] MCV Auto (RBC) [Entitic vol] Ordered By: Kate Ly on 08-08-2024 MCV (RBC) [Entitic vol] MCV [Entitic vol ume] by Automated count 80-100 [facility] Monocytes Auto (Bld) [#/Vol] Ordered By: Kate Ly on 08-08-2024 Monocytes (Bld) [#/Vol] Automated blood monocyte count 0.0-0.8 [facility] Monocytes/100 WBC Auto (Bld) Ordered By: Kate Ly on 08-08-2024 Monocytes/100 WBC (Bld) Automated monocyte % . [facility] Neutrophils Auto (Bld) [#/Vo l]Ordered By: Kate Ly on 08-08-2024 Neutrophils (Bld) [#/Vol] Neutrophils [#/volume] in Blood by Automated count 1.8-7.7 [facility] Neutrophils/100 WBC Auto (Bl d)Ordered By: Kate Ly on 08-08-2024 Neutrophils/100 WBC (Bld) Automated neutrophil % . [facility] No Panel InformationOrdered By: Kate Quiros on 08-08-2024 Estimated GFR (CKD-EPI) 55.898 mL/Min [facility] Creatinine Clearance (Chem N/A [facility] Nucleated erythrocytes [Pres ence] in Blood by Automated countOrdered By: Kate Quiros on 08-08-2024 Nucleated RBC Auto Ql (Bld) Nucleated erythrocytes [Presence] in Blood by Automated count 0-0.5 [facility] Platelet mean volume Auto (B ld) [Entitic vol]Ordered By: Kate Ly on 08-08-2024 Platelet mean volume (Bld) [Entitic vol] Platelet mean volume [Entitic volume] in Blood by Automated count 6.3-10.7 [facility] Platelets Auto (Bld) [#/Vol] Ordered By: Kate Quiros on 08-08-2024 Platelets (Bld) [#/Vol] Platelets [#/vol ume] in Blood by Automated count 150-450 [facility] Potassium [Moles/volume] in Serum or PlasmaOrdered By: Kate Ly on 08-08-2024 Potassium [Moles/Vol] Potassium [Moles/volume] in Serum or Plasma 3.5-5.1 [facility] Protein [Mass/volume] in Ser um or PlasmaOrdered By: Kate Ly on 08-08-2024 Protein [Mass/Vol] Protein [Mass/volume] in Serum or Plasma Low 6.4-8.9 [facility] RBC Auto (Bld) [#/Vol]Ordere d By: Kate Ly on 08-08-2024 RBC (Bld) [#/Vol] Erythrocytes [#/volume] in Blood by Automated count Low 3.60-5.00 [facility] Serum or plasma albumin/glob ulin mass ratioOrdered By: Kate Ly on 08-08-2024 Albumin/Globulin [Mass ratio] Serum or plasma albumin/globulin mass ratio [facility] Serum or plasma anion gap de terminationOrdered By: Kate Ly on 08-08-2024 Anion gap [Moles/Vol] Serum or plasma anion gap determination 6.0-15.0 [facility] Sodium [Moles/volume] in Ser um or PlasmaOrdered By: Kate Quiros on 08-08-2024 Sodium [Moles/Vol] Sodium [Moles/volume] in Serum or Plasma 136-145 [facility] Urea nitrogen [Mass/volume] in Serum or PlasmaOrdered By: Kate Quiros on 08-08-2024 Urea nitrogen [Mass/Vol] Urea nitrogen [Mass/volume] in Serum or Plasma 7-25 [facility] WBC Auto (Bld) [#/Vol]Ordere d By: Kate Quiros on 08-08-2024 WBC (Bld) [#/Vol] Leukocytes [#/volume] in Blood by Automated count 3.8-11.6 [facility] Optical coherence tomography study reporton 07-18-2024 [employer] Right Eye Quality was good. Scan locations included subfoveal, juxtafoveal, extrafoveal. Progression has been stable. Findings include abnormal foveal contour. Left Eye Quality was good. Scan locations included subfoveal, juxtafoveal, extrafoveal. Progression has been stable. Findings include pigment epithelial detachment, subretinal scarring. 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 Thanks. Spoke with patient and she will make the medication decrease. I will send her in 2.5mg tablets. She does not have a BP cuff at home so I will also send her an RX for that. She verbalized understanding and will let us know of any abnormal BP trends. Normal [facility] Office Visiton 03-15-2024 Follow-up visit [id number] Debra García 1940 F Date Provider Department Center 03/15/2024 PARAM STODDARD CHARY [facility] No family history on file Level of Service:77505 CT OFFICE/OUTPATIENT ESTABLISHED LOW MDM 20 MIN Normal [facility] 36on 02-26-2024 36 Regarding lab results from 02/24/2024: IAN Guzman MA Please let her know her labs show stable kidney function. Can continue lasix daily. Thanks LM on 02/25. Normal [facility] Estimated glomerular filtrat ion rate (GFR) non- Americanon 02-24-2024 GFR/1.73 sq M.predicted among non-blacks MDRD (S/P/Bld) [Vol rate/Area] Estimated glomerular filtration rate (GFR) non- Low >=60 mL/min/1.73 m 2 [facility] Laboratory - Chemistry and C hemistry - challengeon 02-24-2024 Calcium [Mass/Vol] 9.5 mg/dL 8.5-10.1 [facility] Chloride [Moles/Vol] 104 mmol/L 98-107 [facility] CO2 [Moles/Vol] 31.9 mmol/L 21.0-32.0 [facility] Creatinine [Mass/Vol] 1.26 mg/dL High 0.55-1.02 [facility] GFR/1.73 sq M.predicted MDRD (S/P/Bld) [Vol rate/Area] 49 mL/min/{1.73_m2} Low >=60 mL/min/1.73 m 2 [facility] Glucose [Mass/Vol] 116 mg/dL High 74-106 [facility] Potassium [Moles/Vol] 4.1 mmol/L 3.5-5.1 [facility] Sodium [Moles/Vol] 142 mmol/L 136-145 [facility] Urea nitrogen [Mass/Vol] 15.0 mg/dL 7.0-18.0 [facility] Urea nitrogen/Creatinine [Mass ratio] 11.9 mg/mg [facility] Serum or plasma anion gap de terminationon 02-24-2024 Anion gap [Moles/Vol] Serum or plasma anion gap determination [facility] Office Visiton 02-23-2024 Follow-up visit [id number] JenniferDebra Mcmahon 1940 F Date Provider Department Center 02/23/2024 JUS PATEL [facility] No family history on file Level of Service:35221 CT OFFICE/OUTPATIENT ESTABLISHED MOD MDM 30 MIN [facility] 36on 02-03-2024 36 LM on patient's VM for her to return my call. [facility] 36on 01-27-2024 36 I don't see any Evoke transmissions for her. Does she have a home monitor set up? If not, send her the info to call them to set up if she wants home monitoring. Or she could have her device interrogated in the office sooner than the . [facility] 36 Patient called to make you aware that the past few days she's been having left-sided heart pounding . Patient denies chest pain and SOB. Heart pounding is happening at night when she is lying down. Asked her to come into the office for ECG and she said I just had one . Any way to check her device on Evoke? [facility] Telephoneon 01-27-2024 Telephone [id number] JenniferDebra Mcmahon 1940 F Date Provider Department Center 01/27/2024 JudyMABLE MAY[address] CH[address] Escobar [facility] No family history on file [facility] Office Visiton 01-20-2024 Follow-up visit [id number] JenniferDebra 1940 F Date Provider Department Center 01/20/2024 JUS PATEL No family history on file Level of Service:31598 CT OFFICE/OUTPATIENT ESTABLISHED MOD MDM 30 MIN [facility] HPon 01-13-2024 [facility] Electrophysiology Consult Note Reason for visit: Afib, [...] thyroid issues. She had previous seen a containers sales representative and an outlying facility and recently moved here about 2 years ago and has not established with a containers sales representative. She was seen by Ranjan SOSA and subsequently started on anticoagulation with Eliquis. previously she had afib ablation with [facility] before 2009 had for unclear reasons was not placed on anticoagulation when he saw her. she got admitted to [place] ED on 02/06/2023 following a fall. versus attributed to be a mechanical fall as she tripped on the corner curb. no loss of consciousness. CT of the head was negative for any hemorrhage. she had some lacerations which were sutured. She had a recent echocardiogram done which showed cardiomyopathy with a EF of 35 to 40%. [id number] at least 6 for age, gender, hypertension, [...] 20 mg ta (more content not included)... [facility] NURSNOTEon 01-13-2024 NURSNOTE RN educated pt on d/c instructions. RN encouraged pt to voice any questions or concerns. Pt verbalizes no questions or concerns at this time. Pt was wheeled off of unit with all of belongings. [facility] NURSNOTE CHG wipes and betadine nasal swabs completed. [facility] Orders Onlyon 01-13-2024 Orders Only [id number] Debra García 1940 F [facility] Provider Department Center 01/13/2024 FLAQUITA NIETO [facility] [place] [facility] No family history on file [facility] Orders Onlyon 01-05-2024 Orders Only [id number] Debra García 1940 F Date Provider Department [place] 01/05/2024 FLAQUITA NIETO [facility] [place] [facility] No family history on file [facility] Laboratory - Chemistry and C hemistry - challengeon 09-29-2023 Cobalamin (Vitamin B12) [Mass/Vol] 1712.0 pg/mL 193.0-986.0 [facility] TSH Qn 0.490 m[IU]/L 0.358-3.740 [facility] No Panel Informationon 09-28 25-Hydroxy Vitamin D Total 54.7 ng/mL [facility] Comment on above: <20 ng/mL Vit D defi cient20-<30 ng/mL Vit D -230 ng/mL Vit D sufficient>100 ng/mL Potential Toxicity Basophils Auto (Bld) [#/Vol] on 07-17-2023 Basophils (Bld) [#/Vol] 0.0 10 3/uL 0.0-0.1 [facility] Basophils/100 WBC Auto (Bld) on 07-17-2023 Basophils/100 WBC (Bld) 1.0 % 0.2-2.0 [facility] Eosinophils/100 WBC Auto (Bl d)on 07-17-2023 Eosinophils/100 WBC (Bld) 1.2 % 0.9-7.0 [facility] Erythrocyte distribution wid th Auto (RBC) [Ratio]on 07-17-2023 Erythrocyte distribution width (RBC) [Ratio] 15.0 % 11.0-15.0 [facility] Estimated glomerular filtrat ion rate (GFR) non- Americanon 07-17-2023 GFR/1.73 sq M.predicted among non-blacks MDRD (S/P/Bld) [Vol rate/Area] 51 mL/min/{1.73_m2} >=60 [facility] Hematocrit Auto (Bld) [Volum e fraction]on 07-17-2023 Hematocrit (Bld) [Volume fraction] 39.9 % 36.0-48.0 [facility] Hemoglobin [Mass/volume] in Bloodon 07-17-2023 Hemoglobin (Bld) [Mass/Vol] 12.8 g/dL 12.0-16.0 [facility] Laboratory - Chemistry and C hemistry - challengeon 07-17-2023 Calcium [Mass/Vol] 9.0 mg/dL 8.5-10.1 [facility] Chloride [Moles/Vol] 105 mmol/L 98-107 [facility] CO2 [Moles/Vol] 30.0 mmol/L 21.0-32.0 [facility] Creatinine [Mass/Vol] 1.03 mg/dL 0.55-1.02 [facility] GFR/1.73 sq M.predicted MDRD (S/P/Bld) [Vol rate/Area] mL/min/{1.73_m2} >=60 [facility] Glucose [Mass/Vol] 117 mg/dL 74-106 [facility] Potassium [Moles/Vol] 4.6 mmol/L 3.5-5.1 [facility] Sodium [Moles/Vol] 142 mmol/L 136-145 [facility] Urea nitrogen [Mass/Vol] 16.0 mg/dL 7.0-18.0 [facility] Urea nitrogen/Creatinine [Mass ratio] 15.5 mg/mg [facility] Laboratory - Hematology and Cell countson 07-17-2023 Immature granulocytes/100 WBC (Bld) 0.2 % 0.0-0.5 [facility] Leukocytes [#/volume] correc anila for nucleated erythrocytes in Blood by Automated counon 07-17-2023 WBC corrected for nucl RBC Auto (Bld) [#/Vol] 4.2 10 3/uL 4.0-11.0 [facility] Lymphocytes Auto (Bld) [#/Vo l]on 07-17-2023 Lymphocytes (Bld) [#/Vol] 0.7 10 3/uL 1.2-3.8 [facility] Lymphocytes/100 WBC Auto (Bl d)on 07-17-2023 Lymphocytes/100 WBC (Bld) 17.1 % 20.5-60.0 [facility] MCH Auto (RBC) [Entitic mass ]on 07-17-2023 MCH (RBC) [Entitic mass] 31.5 pg 26.7-34.0 [facility] MCHC Auto (RBC) [Mass/Vol]on 07-17-2023 MCHC (RBC) [Mass/Vol] 32.1 g/dL 29.9-35.2 [facility] MCV Auto (RBC) [Entitic vol] on 07-17-2023 MCV (RBC) [Entitic vol] 98.3 fL 81.0-99.0 [facility] Monocytes Auto (Bld) [#/Vol] on 07-17-2023 Monocytes (Bld) [#/Vol] 0.4 10 3/uL 0.3-0.8 [facility] Monocytes/100 WBC Auto (Bld) on 07-17-2023 Monocytes/100 WBC (Bld) 9.0 % 1.7-12.0 [facility] Neutrophils Auto (Bld) [#/Vo l]on 07-17-2023 Neutrophils (Bld) [#/Vol] 3.0 10 3/uL 1.4-6.5 [facility] Neutrophils/100 WBC Auto (Bl d)on 07-17-2023 Neutrophils/100 WBC (Bld) 71.5 % 43.0-75.0 [facility] No Panel Informationon 07-17 Eosinophils # (Auto) 0.1 10 3/uL 0.0-0.7 [facility] Immature Granulocyte # (Auto) 0.01 10 3/uL 0.00-0.03 [facility] Platelet mean volume Auto (B ld) [Entitic vol]on 07-17-2023 Platelet mean volume (Bld) [Entitic vol] 9.9 fL 9.5-13.5 [facility] Platelets Auto (Bld) [#/Vol] on 07-17-2023 Platelets (Bld) [#/Vol] 188 10 3/uL 150-450 [facility] RBC Auto (Bld) [#/Vol]on RBC (Bld) [#/Vol] 4.06 10 6/uL 4.20-5.40 [facility] Serum or plasma anion gap de terminationon 07-17-2023 Anion gap [Moles/Vol] 11.6 mmol/L [facility] BNPon 07-24-2022 Natriuretic peptide B (Bld) [Mass/Vol] 1076.0 pg/mL Normal <=1,800.0 [facility] Comment on above: Performed By: #### L IPID, TSH, BNP, CMP #### [facility] [address] [address] [address] Ana Fish CBC AUTO DIFFon 07-24-2022 BASO # 0.0 103/ul Normal 0.0-0.1 [facility] Comment on above: Performed By: #### C BC #### [facility] [address] [address] [address] Ana Fish Basophils/100 WBC (Bld) 0.4 % Normal 0.2-2.0 [facility] Comment on above: Performed By: #### C BC #### [facility] [address] [address] [address] Ana Fish EO # 0.1 103/ul Normal 0.0-0.7 [facility] Comment on above: Performed By: #### C BC #### [facility] [address] [place] [address] Dr. Ana Fish Eosinophils/100 WBC (Bld) 1.3 % Normal 0.9-7.0 [facility] Comment on above: Performed By: #### C BC #### [facility] [address] [place] [address] Dr. Ana Fish Erythrocyte distribution width (RBC) [Ratio] 15.5 % Critically high 11.0-15.0 [facility] Comment on above: Performed By: #### C BC #### [facility] [address] [place] [address] Dr. Ana Fish Hematocrit (Bld) [Volume fraction] 37.0 % Normal 36.0-48.0 [facility] Comment on above: Performed By: #### C BC #### [facility] [address] [place] [address] Dr. Ana Fish Hemoglobin (Bld) [Mass/Vol] 12.7 g/dL Normal 12.0-16.0 [facility] Comment on above: Performed By: #### C BC #### [facility] [address] [place] [address] Dr. Ana Fish IG # 0.03 10e3/ul Normal 0.00-0.03 [facility] Comment on above: Performed By: #### C BC #### [facility] [address] [place] [address] Dr. Ana Fish IG % 0.4 % Normal 0.0-0.5 [facility] Comment on above: Performed By: #### C BC #### [facility] [address] [place] [address] Dr. Ana Fish LYMPH # 1.6 103/ul Normal 1.2-3.8 [facility] Comment on above: Performed By: #### C BC #### [facility] [address] [place] [address] Dr. Ana Fish Lymphocytes/100 WBC (Bld) 19.0 % Critically low 20.5-60.0 [facility] Comment on above: Performed By: #### C BC #### [facility] [address] [place] [address] Dr. Ana Fish MANUAL DIFF REQ NO Normal [facility] Comment on above: Performed By: #### C BC #### [facility] [address] [place] [address] Dr. Ana Fish MCH (RBC) [Entitic mass] 32.3 pg Normal 26.7-34.0 [facility] Comment on above: Performed By: #### C BC #### [facility] [address] [place] [address] Dr. Ana Fish MCHC (RBC) [Mass/Vol] 34.3 g/dL Normal 29.9-35.2 [facility] Comment on above: Performed By: #### C BC #### [facility] [address] [place] [address] Dr. Ana Fish MCV (RBC) [Entitic vol] 94.1 fL Normal 81.0-99.0 [facility] Comment on above: Performed By: #### C BC #### [facility] [address] [place] [address] Dr. Ana Fish MONO # 0.8 103/ul Normal 0.3-0.8 [facility] Comment on above: Performed By: #### C BC #### [facility] [address] [place] [address] Dr. Ana Fish Monocytes/100 WBC (Bld) 9.7 % Normal 1.7-12.0 [facility] Comment on above: Performed By: #### C BC #### [facility] [address] [place] [address] Dr. Ana Fish NEUT # 5.7 103/ul Normal 1.4-6.5 [facility] Comment on above: Performed By: #### C BC #### [facility] [address] [place] [address] Dr. Ana Fish Neutrophils/100 WBC (Bld) 69.2 % Normal 43.0-75.0 [facility] Comment on above: Performed By: #### C BC #### [facility] [address] [place] [address] Dr. Ana Fish Platelet mean volume (Bld) [Entitic vol] 9.9 fL Normal 9.5-13.5 [facility] Comment on above: Performed By: #### C BC #### [facility] [address] [place] [address] Dr. Ana Fish PLT 273 103/ul Normal 150-450 [facility] Comment on above: Performed By: #### C BC #### [facility] [address] [place] [address] Dr. Ana Fish RBC 3.93 106/ul Critically low 4.20-5.40 [facility] Comment on above: Performed By: #### C BC #### [facility] [address] [place] [address] Dr. Ana Fish WBC 8.2 103/ul Normal 4.0-11.0 [facility] Comment on above: Performed By: #### C BC #### [facility] [address] [place] [address] Dr. Ana Fish FREE T4on 07-24-2022 Free T4 [Mass/Vol] 1.34 ng/dL Normal 0.76-1.46 [facility] Comment on above: Performed By: #### F T4 #### [facility] [address] [place] [address] Dr. Ana Fish LIPID PROFILEon 07-24-2022 CHOL-HDL RATIO NORM SEE BELOW Normal [facility] Comment on above: Result Comment: 3.3 - 4.4 LOW RISK 4.4 - 7.1 AVERAGE RISK 7.1 - 11.0 MODERATE RISK >11.0 HIGH RISK Performed By: #### L IPID, TSH, BNP, CMP #### [facility] [address] [place] [address] Dr. Ana Fish Cholesterol [Mass/Vol] 199 mg/dL Normal <=[address] [facility] Comment on above: Performed By: #### L IPID, TSH, BNP, CMP #### [facility] [address] [address] [address] Ana Fish Cholesterol in HDL [Mass/Vol] 88 mg/dL Critically high 40-60 [facility] Comment on above: Performed By: #### L IPID, TSH, BNP, CMP #### [facility] [address] [address] [address] Ana Fish Cholesterol in LDL [Mass/Vol] 97.6 mg/dL Normal [facility] Comment on above: Performed By: #### L IPID, TSH, BNP, CMP #### [facility] [address] [address] [address] Ana Fish Cholesterol.total/Teresa sterol in HDL [Mass ratio] 2.3 {ratio} Normal [facility] Comment on above: Performed By: #### L IPID, TSH, BNP, CMP #### [facility] [address] [address] [address] Ana Fish HDL NORMAL > or = 60 mg/dl - LOW CARDIOVASCULAR RISK <40 mg/dl - HIGH CARDIOVASCULAR RISK Normal [facility] Comment on above: Performed By: #### L IPID, TSH, BNP, CMP #### [facility] [address] [address] [address] Ana Fish LDL CALC NORMAL SEE BELOW Normal [facility] Comment on above: Result Comment: <100 mg/dl OPTIMAL 100 - 129 mg/dl NEAR OR ABOVE OPTIMAL 130 - 159 mg/dl BORDERLINE HIGH 160 - 189 mg/dl HIGH >190 mg/dl VERY HIGH Performed By: #### L IPID, TSH, BNP, CMP #### [facility] [address] [address] [address] Ana Fish Triglyceride [Mass/Vol] 67 mg/dL Normal <=[address] [facility] Comment on above: Performed By: #### L IPID, TSH, BNP, CMP #### [facility] [address] [place] [address] Dr. Ana Fish VLDL CALC 13.4 mg/dL Normal [facility] Comment on above: Performed By: #### L IPID, TSH, BNP, CMP #### [facility] [address] [place] [address] Dr. Ana Fish PROF 14(COMP METB)on 023 Albumin [Mass/Vol] 3.8 g/dL Normal 3.4-5.0 [facility] Comment on above: Performed By: #### L IPID, TSH, BNP, CMP #### [facility] [address] [place] [address] Dr. Ana Fish Albumin/Globulin [Mass ratio] 1.3 {ratio} Normal [facility] Comment on above: Performed By: #### L IPID, TSH, BNP, CMP #### [facility] [address] [place] [address] Dr. Ana Fish ALP [Catalytic activity/Vol] 81 U/L Normal 46-116 [facility] Comment on above: Performed By: #### L IPID, TSH, BNP, CMP #### [facility] [address] [place] [address] Dr. Ana Fish ALT [Catalytic activity/Vol] 16 U/L Normal 14-59 [facility] Comment on above: Performed By: #### L IPID, TSH, BNP, CMP #### [facility] [address] [place] [address] Dr. Ana Fish Anion gap [Moles/Vol] 10.3 mmol/L Normal [facility] Comment on above: Performed By: #### L IPID, TSH, BNP, CMP #### [facility] [address] [place] [address] Dr. Ana Fish AST [Catalytic activity/Vol] 18 U/L Normal 15-37 [facility] Comment on above: Performed By: #### L IPID, TSH, BNP, CMP #### [facility] [address] [place] [address] Dr. Ana Fish Bilirubin [Mass/Vol] 0.8 mg/dL Normal 0.2-1.0 [facility] Comment on above: Performed By: #### L IPID, TSH, BNP, CMP #### [facility] [address] [address] [address] Ana Fish Calcium [Mass/Vol] 9.3 mg/dL Normal 8.5-10.[address] [facility] Comment on above: Performed By: #### L IPID, TSH, BNP, CMP #### [facility] [address] [address] [address] Ana Fish Chloride [Moles/Vol] 103 mmol/L Normal 98-107 [facility] Comment on above: Performed By: #### L IPID, TSH, BNP, CMP #### [facility] [address] [address] [address] Ana Fish CO2 [Moles/Vol] 32.1 mmol/L Critically high 21.0-32.0 [facility] Comment on above: Performed By: #### L IPID, TSH, BNP, CMP #### [facility] [address] [place] [address] Dr. Ana Fish Creatinine [Mass/Vol] 0.85 mg/dL Normal 0.55-1.02 [facility] Comment on above: Performed By: #### L IPID, TSH, BNP, CMP #### [facility] [address] [address] [address] Ana Fish EGFR-AF QATARI >60 Normal >=60 [facility] Comment on above: Performed By: #### L IPID, TSH, BNP, CMP #### [facility] [address] [address] [address] Ana Fish EGFR-NON AF QATARI >60 Normal >=60 [facility] Comment on above: Performed By: #### L IPID, TSH, BNP, CMP #### [facility] [address] [address] [address] Ana Fish Globulin (S) [Mass/Vol] 3.0 g/dL Normal T [facility] Comment on above: Performed By: #### L IPID, TSH, BNP, CMP #### [facility] [address] [address] [address] Ana Fish Glucose [Mass/Vol] 101 mg/dL Normal 74-[address] [facility] Comment on above: Performed By: #### L IPID, TSH, BNP, CMP #### [facility] [address] [address] [address] Ana Fish Potassium [Moles/Vol] 3.4 mmol/L Critically low 3.5-5.1 [facility] Comment on above: Performed By: #### L IPID, TSH, BNP, CMP #### [facility] [address] [place] [address] Dr. Ana Fish Protein [Mass/Vol] 6.8 g/dL Normal 6.4-8.[address] [facility] Comment on above: Performed By: #### L IPID, TSH, BNP, CMP #### [facility] [address] [place] [address] Dr. Ana Fish Sodium [Moles/Vol] 142 mmol/L Normal 136-[address] [facility] Comment on above: Performed By: #### L IPID, TSH, BNP, CMP #### [facility] [address] [place] [address] Dr. Ana Fish Urea nitrogen [Mass/Vol] 12.0 mg/dL Normal 7.0-18.0 [facility] Comment on above: Performed By: #### L IPID, TSH, BNP, CMP #### [facility] [address] [place] [address] Dr. Ana Fish Urea nitrogen/Creatinine [Mass ratio] 14.1 mg/mg Normal [facility] Comment on above: Performed By: #### L IPID, TSH, BNP, CMP #### [facility] [address] [place] [address] Dr. Ana Fish TSHon 07-24-2022 TSH 2.122 uIU/mL Normal 0.358-3.740 [facility] Comment on above: Performed By: #### L IPID, TSH, BNP, CMP #### [facility] [address] [place] [address] Dr. Ana Fish XR CHEST AP/PA AND LATon XR CHEST AP/PA AND LAT EXAMINATION: TWO VIEW XR CHEST AP/PA AND LAT, 02/03/2020 COMPARISON: Chest, 01/06/2020. 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 No acute cardiopulmonary disease. 2. Normal heart size. 3. 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 Moderate compression deformity of T12 vertebral body. This is age indeterminate. Recommend further evaluation with cross-sectional imaging. 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 /karlk Workstation ID: [id number] Dictated by: ARNOLDO HOUGH on ThuJan 06, 2020 4:42:45 PM EDT Transcribed by: RIAZ MURRAY on ThuJan 06, 2020 5:12:15 PM EDT Finalized by: ARNOLDO HOUGH on ThuJan 06, 2020 7:55:51 PM EDT Normal [facility] Comment on above: Order Comment: Injur y/Trauma or Illness?:Illness/Other How long have you had these symptoms (acute/chronic)?:Unknown Reason for exam?:Amiodarone surveillance History of cancer?:n Surgeries, chemotherapy, or radiation?:n Type of Exam?:Initial Additional signs and symptoms?: Basic Metabolic Panelon 10-3 Anion gap [Moles/Vol] 9.00 mmol/L Normal 8.00-16.00 [facility] Comment on above: Order Comment: Fasti ng: Unknown Performed By: #### C 80, C400, C408, C141, C48, C45, C119, C120 #### [facility] [address] [place] [address] B/C Ratio 15.0 Ratio Normal [facility] Comment on above: Order Comment: Fasti ng: Unknown Performed By: #### C 80, C400, C408, C141, C48, C45, C119, C120 #### [facility] [address] [place] [address] Calcium [Mass/Vol] 10.2 mg/dL Normal 8.5-10.5 [facility] Comment on above: Order Comment: Fasti ng: Unknown Performed By: #### C 80, C400, C408, C141, C48, C45, C119, C120 #### [facility] [address] [place] [address] Chloride [Moles/Vol] 101 mmol/L Normal 98-107 [facility] Comment on above: Order Comment: Fasti ng: Unknown Performed By: #### C 80, C400, C408, C141, C48, C45, C119, C120 #### [facility] [address] [place] [address] CO2 [Moles/Vol] 30.0 mmol/L Normal 22.0-30.0 [facility] Comment on above: Order Comment: Fasti ng: Unknown Performed By: #### C 80, C400, C408, C141, C48, C45, C119, C120 #### [facility] [address] [place] [address] Creatinine [Mass/Vol] 1.0 mg/dL Normal 0.1-1.2 [facility] Comment on above: Order Comment: Fasti ng: Unknown Performed By: #### C 80, C400, C408, C141, C48, C45, C119, C120 #### [facility] [address] [place] [address] GFR/1.73 sq M.predicted MDRD (S/P/Bld) [Vol rate/Area] 54 mL/min per 1.73 Low >60 [facility] Comment on above: Order Comment: Fasti ng: Unknown Result Comment: The GFR estimate is not adjusted for race. If the patient's race is -Brazilian, the GFR estimate must be multiplied by a factor of 1.21. Performed By: #### C 80, C400, C408, C141, C48, C45, C119, C120 #### [facility] [address] [place] [address] [address] [place] [address] Glucose [Mass/Vol] 91 mg/dL Normal 74-100 [facility] Comment on above: Order Comment: Fasti ng: Unknown Performed By: #### C 80, C400, C408, C141, C48, C45, C119, C120 #### [facility] [address] [place] [address] [address] [place] [address] Potassium [Moles/Vol] 3.9 mmol/L Normal 3.5-5.3 [facility] Comment on above: Order Comment: Fasti ng: Unknown Performed By: #### C 80, C400, C408, C141, C48, C45, C119, C120 #### [facility] [address] [place] [address] [place] [address] Sodium [Moles/Vol] 140 mmol/L Normal 135-145 [facility] Comment on above: Order Comment: Fasti ng: Unknown Performed By: #### C 80, C400, C408, C141, C48, C45, C119, C120 #### [facility] [address] [place] [address] [place] [address] Urea nitrogen [Mass/Vol] 15 mg/dL Normal 6-22 [facility] Comment on above: Order Comment: Fasti ng: Unknown Performed By: #### C 80, C400, C408, C141, C48, C45, C119, C120 #### [facility] [address] [place] [address] Free T4on 03-24-2019 Free T4 [Mass/Vol] 1.9 ng/dL High 0.7-1.8 [facility] Comment on above: Order Comment: Fasti ng: Unknown Performed By: #### C 80, C400, C408, C141, C48, C45, C119, C120 #### [facility] [address] [place] [id number] TSHon 03-24-2019 TSH Qn 2.95 MIU/mL Normal 0.50-6.00 [facility] Comment on above: Performed By: #### C 80, C400, C408, C141, C48, C45, C119, C120 #### [facility] [place] [id number] Cholesterolon 02-10-2019 Cholesterol [Mass/Vol] 200 mg/dL High <200 [facility] Comment on above: Order Comment: Fasti ng: Unknown Performed By: #### C 80, C400, C408, C141, C48, C45, C119, C120 #### [facility] [place] [address] Direct LDLon 02-10-2019 Cholesterol in LDL [Mass/Vol] 88 mg/dL Normal <130 [facility] Comment on above: Order Comment: Fasti ng: Unknown Result Comment: LDL goal dependent upon individual risk Performed By: #### C 80, C400, C408, C141, C48, C45, C119, C120 #### [facility] [place] [id number] HDLon 02-10-2019 Cholesterol in HDL [Mass/Vol] 90 mg/dL Normal >50 [facility] Comment on above: Order Comment: Fasti ng: Unknown Performed By: #### C 80, C400, C408, C141, C48, C45, C119, C120 #### [facility] [address] [place] [address] Triglycerideon 02-10-2019 Triglyceride [Mass/Vol] 119 mg/dL Normal <150 [facility] Comment on above: Order Comment: Fasti ng: Unknown Performed By: #### C 80, C400, C408, C141, C48, C45, C119, C120 #### [facility] [address] [place] [address] B12/Folateon 02-09-2019 Cobalamin (Vitamin B12) [Mass/Vol] 989 pg/mL High 239-931 [facility] Comment on above: Order Comment: Fasti ng: Unknown Performed By: #### C 80, C400, C408, C141, C48, C45, C119, C120 #### [facility] [address] [place] [address] Folate 8.12 ng/mL Normal 2.80-20.00 [facility] Comment on above: Order Comment: [...] C408, C141, C48, C45, C119, C120 #### [facility] [address] [place] [address] Basic Metabolic Panelon 01-23 Anion gap [Moles/Vol] 10.00 mmol/L Normal 8.00-16.00 [facility] Comment on above: Order Comment: Items in this order include: Basic Metabolic Panel , Iron and TIBC, Hepatic Panel, Ferritin, Free T4, TSH, B12/Folate, Vit D 25 [place] (Total), CBC with differential, HgbA1C, Urine, Random, Albumin/Crea , , , , , Testing Performed By: [facility] [address] [place] [address]. [place] [address] Dr. Irma Shahid, Engineering Teacher Performed By: #### C 406, C3763, C1573, C80, C400, C408, C409, C136, C48, C45, C215 #### [facility] [address] [place] [address] B/C Ratio 16.0 Ratio Normal [facility] Comment on above: Order Comment: Items in this order include: Basic Metabolic Panel , Iron and TIBC, Hepatic Panel, Ferritin, Free T4, TSH, B12/Folate, Vit D 25 [place] (Total), CBC with differential, HgbA1C, Urine, Random, Albumin/Crea , , , , , Testing Performed By: [facility] [address] [place] [address]. [place] [id number] Dr. Irma Shahid, Engineering Teacher Performed By: #### C 406, C3763, C1573, C80, C400, C408, C409, C136, C48, C45, C215 #### [facility] [facility] [address] [place] [address] Rd [address] [place] [address] Calcium [Mass/Vol] 9.4 mg/dL Normal 8.5-10.5 [facility] Comment on above: Order Comment: Items in this order include: Basic Metabolic Panel , Iron and TIBC, Hepatic Panel, Ferritin, Free T4, TSH, B12/Folate, Vit D 25 [place] (Total), CBC with differential, HgbA1C, Urine, Random, Albumin/Crea , , , , , Testing Performed By: [facility] [address] [place] [address]. [place] [address] Dr. Irma Shahid, Engineering Teacher Performed By: #### C 406, C3763, C1573, C80, C400, C408, C409, C136, C48, C45, C215 #### [facility] [address] [place] [address] Chloride [Moles/Vol] 101 mmol/L Normal 98-107 [facility] Comment on above: Order Comment: Items in this order include: Basic Metabolic Panel , Iron and TIBC, Hepatic Panel, Ferritin, Free T4, TSH, B12/Folate, Vit D 25 [place] (Total), CBC with differential, HgbA1C, Urine, Random, Albumin/Crea , , , , , Testing Performed By: [facility] [address] [place] [address]. [place] [address] Dr. Irma Shahid, Engineering Teacher Performed By: #### C 406, C3763, C1573, C80, C400, C408, C409, C136, C48, C45, C215 #### [facility] [address] [place] [address] [address] [place] [address] CO2 [Moles/Vol] 27.0 mmol/L Normal 22.0-30.0 [facility] Comment on above: Order Comment: Items in this order include: Basic Metabolic Panel , Iron and TIBC, Hepatic Panel, Ferritin, Free T4, TSH, B12/Folate, Vit D 25 [place] (Total), CBC with differential, HgbA1C, Urine, Random, Albumin/Crea , , , , , Testing Performed By: [facility] [address] [place], [place] [id number] Dr. Irma Shahid, Engineering Teacher Performed By: #### C 406, C3763, C1573, C80, C400, C408, C409, C136, C48, C45, C215 #### [facility] [address] [place] [address] [address] [place] [address] Creatinine [Mass/Vol] 1.5 mg/dL High 0.1-1.2 [facility] Comment on above: Order Comment: Items in this order include: Basic Metabolic Panel , Iron and TIBC, Hepatic Panel, Ferritin, Free T4, TSH, B12/Folate, Vit D 25 OH (Total), CBC with differential, HgbA1C, Urine, Random, Albumin/Crea , , , , , Testing Performed By: [facility] [address] [place] [address]. [place] [address] Dr. Irma Shahid, Engineering Teacher Performed By: #### C 406, C3763, C1573, C80, C400, C408, C409, C136, C48, C45, C215 #### [facility] [address] [facility] [address] [place] [address] GFR/1.73 sq M.predicted MDRD (S/P/Bld) [Vol rate/Area] 34 mL/min per 1.73 Low >60 [facility] Comment on above: Order Comment: Items in this order include: Basic Metabolic Panel , Iron and TIBC, Hepatic Panel, Ferritin, Free T4, TSH, B12/Folate, Vit D 25 [place] (Total), CBC with differential, HgbA1C, Urine, Random, Albumin/Crea , , , , , Testing Performed By: [facility] [address] [place], [place] [id number] Dr. Irma Shahid, Engineering Teacher Result Comment: The GFR estimate is not adjusted for race. If the patient's race is -Brazilian, the GFR estimate must be multiplied by a factor of 1.21. Performed By: #### C 406, C3763, C1573, C80, C400, C408, C409, C136, C48, C45, C215 #### [facility] [address] [place] [address] [address] [place] [address] Glucose [Mass/Vol] 93 mg/dL Normal 74-100 [facility] Comment on above: Order Comment: Items in this order include: Basic Metabolic Panel , Iron and TIBC, Hepatic Panel, Ferritin, Free T4, TSH, B12/Folate, Vit D 25 [place] (Total), CBC with differential, HgbA1C, Urine, Random, Albumin/Crea , , , , , Testing Performed By: [facility] [address] [place] [address]. [place] [address] Dr. Irma Shahid, Engineering Teacher Performed By: #### C 406, C3763, C1573, C80, C400, C408, C409, C136, C48, C45, C215 #### [facility] [address] [place] [address] [address] [place] [address] Potassium [Moles/Vol] 4.8 mmol/L Normal 3.5-5.3 [facility] Comment on above: Order Comment: Items in this order include: Basic Metabolic Panel , Iron and TIBC, Hepatic Panel, Ferritin, Free T4, TSH, B12/Folate, Vit D 25 [place] (Total), CBC with differential, HgbA1C, Urine, Random, Albumin/Crea , , , , , Testing Performed By: [facility] [address] [place] [address] Dr. Irma Shahid, Engineering Teacher Performed By: #### C 406, C3763, C1573, C80, C400, C408, C409, C136, C48, C45, C215 #### [facility] [address] [place] [address] [place] [address] Sodium [Moles/Vol] 138 mmol/L Normal 135-145 [facility] Comment on above: Order Comment: Items in this order include: Basic Metabolic Panel , Iron and TIBC, Hepatic Panel, Ferritin, Free T4, TSH, B12/Folate, Vit D 25 [place] (Total), CBC with differential, HgbA1C, Urine, Random, Albumin/Crea , , , , , Testing Performed By: [facility] [address] [place] [address] Dr. Irma Shahid, Engineering Teacher Performed By: #### C 406, C3763, C1573, C80, C400, C408, C409, C136, C48, C45, C215 #### [facility] [address] [place] [address] [address] [place] [address] Urea nitrogen [Mass/Vol] 24 mg/dL High 6-22 [facility] Comment on above: Order Comment: Items in this order include: Basic Metabolic Panel , Iron and TIBC, Hepatic Panel, Ferritin, Free T4, TSH, B12/Folate, Vit D 25 [place] (Total), CBC with differential, HgbA1C, Urine, Random, Albumin/Crea , , , , , Testing Performed By: [facility] [address] [place] [address] Dr. Irma Shahid, Engineering Teacher Performed By: #### C 406, C3763, C1573, C80, C400, C408, C409, C136, C48, C45, C215 #### [facility] [address] [place] [address] CBC with differentialon 01-23 Basophils (Bld) [#/Vol] 0.0 K CUMM Normal 0.0-0.2 [facility] Comment on above: Order Comment: Items in this order include: Basic Metabolic Panel , Iron and TIBC, Hepatic Panel, Ferritin, Free T4, TSH, B12/Folate, Vit D 25 [place] (Total), CBC with differential, HgbA1C, Urine, Random, Albumin/Crea , , , , , Testing Performed By: [facility] [address] [place] [address]. [place] [id number] Dr. Irma Shahid, Engineering Teacher Performed By: #### C 406, C3763, C1573, C80, C400, C408, C409, C136, C48, C45, C215 #### [facility] [address] [place] [address] Basophils/100 WBC (Bld) 0.4 % Normal 0.0-3.0 [facility] Comment on above: Order Comment: Items in this order include: Basic Metabolic Panel , Iron and TIBC, Hepatic Panel, Ferritin, Free T4, TSH, B12/Folate, Vit D 25 OH (Total), CBC with differential, HgbA1C, Urine, Random, Albumin/Crea , , , , , Testing Performed By: [facility] [address] [place] [address]. [place] [address] Dr. Irma Shahid, Engineering Teacher Performed By: #### C 406, C3763, C1573, C80, C400, C408, C409, C136, C48, C45, C215 #### [facility] [address] [place] [address] Eosinophils (Bld) [#/Vol] 0.1 K CUMM Normal 0.0-0.4 [facility] Comment on above: Order Comment: Items in this order include: Basic Metabolic Panel , Iron and TIBC, Hepatic Panel, Ferritin, Free T4, TSH, B12/Folate, Vit D 25 [place] (Total), CBC with differential, HgbA1C, Urine, Random, Albumin/Crea , , , , , Testing Performed By: [facility] [address] [place] [address] Dr. Irma Shahid, Engineering Teacher Performed By: #### C 406, C3763, C1573, C80, C400, C408, C409, C136, C48, C45, C215 #### [facility], [facility]. [address] [place] [address] [address] [place] [address] Eosinophils/100 WBC (Bld) 1.5 % Normal 0.0-7.0 [facility] Comment on above: Order Comment: Items in this order include: Basic Metabolic Panel , Iron and TIBC, Hepatic Panel, Ferritin, Free T4, TSH, B12/Folate, Vit D 25 [place] (Total), CBC with differential, HgbA1C, Urine, Random, Albumin/Crea , , , , , Testing Performed By: [facility] [address] [place], [place] [id number] Dr. Irma Shahid, Engineering Teacher Performed By: #### C 406, C3763, C1573, C80, C400, C408, C409, C136, C48, C45, C215 #### [facility] [address] [place] [address] [address] [place] [address] Erythrocyte distribution width (RBC) [Ratio] 14.4 % Normal 11.5-15.5 [facility] Comment on above: Order Comment: Items in this order include: Basic Metabolic Panel , Iron and TIBC, Hepatic Panel, Ferritin, Free T4, TSH, B12/Folate, Vit D 25 [place] (Total), CBC with differential, HgbA1C, Urine, Random, Albumin/Crea , , , , , Testing Performed By: [facility] [address] [place] [address] [address] [address] Irma Shahid, Engineering Teacher Performed By: #### C 406, C3763, C1573, C80, C400, C408, C409, C136, C48, C45, C215 #### [facility] [address] [place] [address] [address] [place] [address] Hematocrit (Bld) [Volume fraction] 38.4 % Normal 37.0-47.0 [facility] Comment on above: Order Comment: Items in this order include: Basic Metabolic Panel , Iron and TIBC, Hepatic Panel, Ferritin, Free T4, TSH, B12/Folate, Vit D 25 [place] (Total), CBC with differential, HgbA1C, Urine, Random, Albumin/Crea , , , , , Testing Performed By: [facility] [address] [place] [address] Dr. Irma Shahid, Engineering Teacher Performed By: #### C 406, C3763, C1573, C80, C400, C408, C409, C136, C48, C45, C215 #### [facility] [address] [place] [address] [address] [place] [address] Hemoglobin (Bld) [Mass/Vol] 12.7 g/dL Normal 11.5-15.5 [facility] Comment on above: Order Comment: Items in this order include: Basic Metabolic Panel , Iron and TIBC, Hepatic Panel, Ferritin, Free T4, TSH, B12/Folate, Vit D 25 [place] (Total), CBC with differential, HgbA1C, Urine, Random, Albumin/Crea , , , , , Testing Performed By: [facility] [address] [place] [address] [address] [address] Irma Shahid, Engineering Teacher Performed By: #### C 406, C3763, C1573, C80, C400, C408, C409, C136, C48, C45, C215 #### [facility] [address] [place] [address] [address] [place] [address] ImmGrn # 0.0 K CUMM Normal 0.0-0.3 [facility] Comment on above: Order Comment: Items in this order include: Basic Metabolic Panel , Iron and TIBC, Hepatic Panel, Ferritin, Free T4, TSH, B12/Folate, Vit D 25 [place] (Total), CBC with differential, HgbA1C, Urine, Random, Albumin/Crea , , , , , Testing Performed By: [facility] [address] [place] [address]. [place] [address] Dr. Irma Shahid, Engineering Teacher Performed By: #### C 406, C3763, C1573, C80, C400, C408, C409, C136, C48, C45, C215 #### [facility] [facility] [address] [place] [address] ImmGrn % 0.3 % Normal 0.0-3.0 [facility] Comment on above: Order Comment: Items in this order include: Basic Metabolic Panel , Iron and TIBC, Hepatic Panel, Ferritin, Free T4, TSH, B12/Folate, Vit D 25 [place] (Total), CBC with differential, HgbA1C, Urine, Random, Albumin/Crea , , , , , Testing Performed By: [facility] [address] [place] [address]. [place] [address] Dr. Irma Shahid, Engineering Teacher Performed By: #### C 406, C3763, C1573, C80, C400, C408, C409, C136, C48, C45, C215 #### [facility] [address] [place] [address] [address] [place] [address] Lymphocytes (Bld) [#/Vol] 1.2 K CUMM Normal 0.7-4.5 [facility] Comment on above: Order Comment: Items in this order include: Basic Metabolic Panel , Iron and TIBC, Hepatic Panel, Ferritin, Free T4, TSH, B12/Folate, Vit D 25 [place] (Total), CBC with differential, HgbA1C, Urine, Random, Albumin/Crea , , , , , Testing Performed By: [facility] [address] [place] [address]. [place] [address] Dr. Irma Shahid, Engineering Teacher Performed By: #### C 406, C3763, C1573, C80, C400, C408, C409, C136, C48, C45, C215 #### [facility] [address] [facility] [address] [place] [address] Lymphocytes/100 WBC (Bld) 13.6 % Low 14.0-46.0 [facility] Comment on above: Order Comment: Items in this order include: Basic Metabolic Panel , Iron and TIBC, Hepatic Panel, Ferritin, Free T4, TSH, B12/Folate, Vit D 25 [place] (Total), CBC with differential, HgbA1C, Urine, Random, Albumin/Crea , , , , , Testing Performed By: [facility] [address] [place] [address] [address] [address] Irma Shhaid, Engineering Teacher Performed By: #### C 406, C3763, C1573, C80, C400, C408, C409, C136, C48, C45, C215 #### [facility] [address] [facility] [address] [place] [address] MCH (RBC) [Entitic mass] 31.3 pg High 27.0-31.0 [facility] Comment on above: Order Comment: Items in this order include: Basic Metabolic Panel , Iron and TIBC, Hepatic Panel, Ferritin, Free T4, TSH, B12/Folate, Vit D 25 [place] (Total), CBC with differential, HgbA1C, Urine, Random, Albumin/Crea , , , , , Testing Performed By: [facility] [address] [place] [address] [address] [address] Irma Shahid, Engineering Teacher Performed By: #### C 406, C3763, C1573, C80, C400, C408, C409, C136, C48, C45, C215 #### [facility] [address] [place] [address] [address] [place] [address] MCHC (RBC) [Mass/Vol] 33.1 g/dL Normal 32.0-36.0 [facility] Comment on above: Order Comment: Items in this order include: Basic Metabolic Panel , Iron and TIBC, Hepatic Panel, Ferritin, Free T4, TSH, B12/Folate, Vit D 25 [place] (Total), CBC with differential, HgbA1C, Urine, Random, Albumin/Crea , , , , , Testing Performed By: [facility] [address] [place] [address] Dr. Irma Shahid, Engineering Teacher Performed By: #### C 406, C3763, C1573, C80, C400, C408, C409, C136, C48, C45, C215 #### [facility] [address] [place] [address] [address] [place] [address] MCV (RBC) [Entitic vol] 94.6 fL Normal 78.0-100.0 [facility] Comment on above: Order Comment: Items in this order include: Basic Metabolic Panel , Iron and TIBC, Hepatic Panel, Ferritin, Free T4, TSH, B12/Folate, Vit D 25 [place] (Total), CBC with differential, HgbA1C, Urine, Random, Albumin/Crea , , , , , Testing Performed By: [facility] [address] [place] [address] Dr. Irma Shahid, Engineering Teacher Performed By: #### C 406, C3763, C1573, C80, C400, C408, C409, C136, C48, C45, C215 #### [facility], [facility]. [address] [place] [address] [address] [place] [address] Monocytes (Bld) [#/Vol] 0.8 K CUMM Normal 0.1-1.0 [facility] Comment on above: Order Comment: Items in this order include: Basic Metabolic Panel , Iron and TIBC, Hepatic Panel, Ferritin, Free T4, TSH, B12/Folate, Vit D 25 [place] (Total), CBC with differential, HgbA1C, Urine, Random, Albumin/Crea , , , , , Testing Performed By: [facility] [address] [place] [address]. [place] [address] Dr. Irma Shahid, Engineering Teacher Performed By: #### C 406, C3763, C1573, C80, C400, C408, C409, C136, C48, C45, C215 #### [facility] [address] [facility] [address] [place] [address] Monocytes/100 WBC (Bld) 8.7 % Normal 4.0-13.0 [facility] Comment on above: Order Comment: Items in this order include: Basic Metabolic Panel , Iron and TIBC, Hepatic Panel, Ferritin, Free T4, TSH, B12/Folate, Vit D 25 OH (Total), CBC with differential, HgbA1C, Urine, Random, Albumin/Crea , , , , , Testing Performed By: [facility] [address] [place] [address] [address] [address] Irma Shahid, Engineering Teacher Performed By: #### C 406, C3763, C1573, C80, C400, C408, C409, C136, C48, C45, C215 #### [facility] [address] [place] [address] [address] [place] [address] Neutrophils (Bld) [#/Vol] 6.8 K CUMM Normal 1.8-7.8 [facility] Comment on above: Order Comment: Items in this order include: Basic Metabolic Panel , Iron and TIBC, Hepatic Panel, Ferritin, Free T4, TSH, B12/Folate, Vit D 25 [place] (Total), CBC with differential, HgbA1C, Urine, Random, Albumin/Crea , , , , , Testing Performed By: [facility] [address] [place] [address] [address] [address] Irma Shahid, Engineering Teacher Performed By: #### C 406, C3763, C1573, C80, C400, C408, C409, C136, C48, C45, C215 #### [facility] [address] [place] [address] [address] [place] [address] Neutrophils/100 WBC (Bld) 75.5 % High 40.0-74.0 [facility] Comment on above: Order Comment: Items in this order include: Basic Metabolic Panel , Iron and TIBC, Hepatic Panel, Ferritin, Free T4, TSH, B12/Folate, Vit D 25 [place] (Total), CBC with differential, HgbA1C, Urine, Random, Albumin/Crea , , , , , Testing Performed By: [facility] [address] [place] [address] Dr. Irma Shahid, Engineering Teacher Performed By: #### C 406, C3763, C1573, C80, C400, C408, C409, C136, C48, C45, C215 #### [facility] [address] [place] [address] [address] [place] [address] Platelet mean volume (Bld) [Entitic vol] 10.9 fL Normal 8.9-12.6 [facility] Comment on above: Order Comment: Items in this order include: Basic Metabolic Panel , Iron and TIBC, Hepatic Panel, Ferritin, Free T4, TSH, B12/Folate, Vit D 25 [place] (Total), CBC with differential, HgbA1C, Urine, Random, Albumin/Crea , , , , , Testing Performed By: [facility] [address] [place] [address] Dr. Irma Shahid, Engineering Teacher Performed By: #### C 406, C3763, C1573, C80, C400, C408, C409, C136, C48, C45, C215 #### [facility] [address] [place] [address] [address] [place] [address] Platelets (Bld) [#/Vol] 283 K CUMM Normal 130-400 [facility] Comment on above: Order Comment: Items in this order include: Basic Metabolic Panel , Iron and TIBC, Hepatic Panel, Ferritin, Free T4, TSH, B12/Folate, Vit D 25 [place] (Total), CBC with differential, HgbA1C, Urine, Random, Albumin/Crea , , , , , Testing Performed By: [facility] [address] [place], [place] [id number] Dr. Irma Shahid, Engineering Teacher Performed By: #### C 406, C3763, C1573, C80, C400, C408, C409, C136, C48, C45, C215 #### [facility] [address] [facility] [address] [place] [address] RBC (Bld) [#/Vol] 4.06 M CUMM Normal 3.80-5.10 [facility] Comment on above: Order Comment: Items in this order include: Basic Metabolic Panel , Iron and TIBC, Hepatic Panel, Ferritin, Free T4, TSH, B12/Folate, Vit D 25 [place] (Total), CBC with differential, HgbA1C, Urine, Random, Albumin/Crea , , , , , Testing Performed By: [facility] [address] [place] [address]. [place] [address] Dr. Irma Shahid, Engineering Teacher Performed By: #### C 406, C3763, C1573, C80, C400, C408, C409, C136, C48, C45, C215 #### [facility] [address] [place] [address] [address] [place] [address] WBC (Bld) [#/Vol] 9.1 K CUMM Normal 3.8-10.6 [facility] Comment on above: Order Comment: Items in this order include: Basic Metabolic Panel , Iron and TIBC, Hepatic Panel, Ferritin, Free T4, TSH, B12/Folate, Vit D 25 [place] (Total), CBC with differential, HgbA1C, Urine, Random, Albumin/Crea , , , , , Testing Performed By: [facility] [address] [place] [address]. [place] [address] Dr. Irma Shahid, Engineering Teacher Performed By: #### C 406, C3763, C1573, C80, C400, C408, C409, C136, C48, C45, C215 #### [facility] [address] [place] [address] [address] [place] [address] Culture, Urineon 02-09-2019 RPT Microbiology results Abnormal [facility] Comment on above: Order Comment: Fasti ng: Unknown Result Comment: Elda l Result: Less than 10,000 CFU/mL of 2 or more organisms present. This usually indicates vaginal, urethral and/or skin contamination. ID and sensitivities will not be performed. Performed By: #### C 80, C400, C408, C141, C48, C45, C119, C120 #### [facility] [address] [place] [address] Ferritinon 02-09-2019 Ferritin [Mass/Vol] 103.7 ng/mL Normal 15.0-200.0 [facility] Comment on above: Order Comment: Fasti ng: Unknown Performed By: #### C 80, C400, C408, C141, C48, C45, C119, C120 #### [facility] [address] [facility] [address] [place] [address] Free T4on 02-09-2019 Free T4 [Mass/Vol] 2.0 ng/dL High 0.7-1.8 [facility] Comment on above: Performed By: #### C 80, C400, C408, C141, C48, C45, C119, C120 #### [facility] [address] [facility] [address] [place] [address] Hepatic Panelon 02-09-2019 Albumin [Mass/Vol] 4.6 g/dL Normal 3.5-5.0 [facility] Comment on above: Performed By: #### C 80, C400, C408, C141, C48, C45, C119, C120 #### [facility] [address] [facility] [address] [place] [address] Alk Phos 57 U/L Normal 23-159 [facility] Comment on above: Performed By: #### C 80, C400, C408, C141, C48, C45, C119, C120 #### [facility] [address] [facility] [address] [place] [address] ALT [Catalytic activity/Vol] 27 U/L Normal 10-52 [facility] Comment on above: Performed By: #### C 80, C400, C408, C141, C48, C45, C119, C120 #### [facility] [address] [place] [address] AST [Catalytic activity/Vol] 29 U/L Normal 11-43 [facility] Comment on above: Performed By: #### C 80, C400, C408, C141, C48, C45, C119, C120 #### [facility] [address] [place] [address] Bili (Direct) 0.0 mg/dL Normal 0.0-0.3 [facility] Comment on above: Performed By: #### C 80, C400, C408, C141, C48, C45, C119, C120 #### [facility] [address] [place] [address] Bili (Indirect) 0.3 mg/dL Normal 0.0-1.1 [facility] Comment on above: Performed By: #### C 80, C400, C408, C141, C48, C45, C119, C120 #### [facility] [address] [place] [address] Bilirubin [Mass/Vol] 0.8 mg/dL Normal 0.2-1.3 [facility] Comment on above: Performed By: #### C 80, C400, C408, C141, C48, C45, C119, C120 #### [facility] [address] [place] [address] Protein [Mass/Vol] 6.9 g/dL Normal 6.3-8.4 [facility] Comment on above: Performed By: #### C 80, C400, C408, C141, C48, C45, C119, C120 #### [facility] [address] [place] [address] Rd [address] [place] [address] [id number] 02-09-2019 HbA1c (Bld) [Mass fraction] 5.3 % Normal <5.7 [facility] Comment on above: Order Comment: Fasti ng: Unknown Result Comment: Refe rence Interval: Normal: below 5.7%. Prediabetes: 5.7% to 6.4%. Diabetes: 6.5% or above. Performed By: #### C 80, C400, C408, C141, C48, C45, C119, C120 #### [facility] [address] [place] [address] Iron and TIBCon 02-09-2019 % Saturation 36 % Normal 20-55 [facility] Comment on above: Order Comment: Fasti ng: Unknown Performed By: #### C 80, C400, C408, C141, C48, C45, C119, C120 #### [facility] [address] [place] [address] Iron [Mass/Vol] 97 ug/dL Normal 37-170 [facility] Comment on above: Order Comment: Fasti ng: Unknown Performed By: #### C 80, C400, C408, C141, C48, C45, C119, C120 #### [facility] [address] [place] [address] TIBC 271 ug/dL Normal 265-497 [facility] Comment on above: Order Comment: Fasti ng: Unknown Performed By: #### C 80, C400, C408, C141, C48, C45, C119, C120 #### [facility] [place] [address] TSHon 02-09-2019 TSH Qn 1.54 MIU/mL Normal 0.50-6.00 [facility] Comment on above: Order Comment: Fasti ng: Unknown Performed By: #### C 80, C400, C408, C141, C48, C45, C119, C120 #### [facility] [address] [place] [address] Urine, Random, Albumin/Creao n 02-09-2019 Albumin DL <= 20 mg/L (U) [Mass/Vol] 2.6 mg/dL High 0.0-1.6 [facility] Comment on above: Order Comment: Fasti ng: Unknown Performed By: #### C 80, C400, C408, C141, C48, C45, C119, C120 #### [facility] [address] [place] [address] Creatinine (U) [Mass/Vol] 179.0 mg/dL Normal 28.0-217.0 [facility] Comment on above: Order Comment: Fasti ng: Unknown Performed By: #### C 80, C400, C408, C141, C48, C45, C119, C120 #### [facility] [address] [place] [address] Urine Microalb/ Creat Ratio 14.5 mcg/mg creat [...] C408, C141, C48, C45, C119, C120 #### [facility] [address] [place] [address] Vit D 25 [place] (Total)on 2018 Vit D 25 [place] (Total) 34.3 ng/ml Normal 31.0-100.0 [facility] Comment on above: Order Comment: Fasti ng: Unknown Result Comment: Defi ciency <10 ng/ml Insufficiency 10-30 ng/ml Sufficiency 31-100 ng/ml Toxicity >100 ng/ml Performed By: #### C 80, C400, C408, C141, C48, C45, C119, C120 #### [facility] [address] [place] [address] SC Mammo Digital Screening b ilat (NB)on 10-06-2018 MA Mammo Digital Screening bilat (NB) EXAMINATION TYPE: SC Mammo Digital Screening bilat (NB) DATE OF EXAM : 10/06/2018 2:34 PM PATIENT HISTORY: Menarche at age 14. Patient has no children. Postmenopausal. Maternal aunt had breast cancer at or over age 50. PRIOR STUDIES: 03/30/2007, 03/02/2009, 12/04/2010, 10/05/2012, 07/10/2015 REASON FOR STUDY: Breast Screening. TECHNIQUE: Digital mammography views were obtained. Computer-aided detection utilizing Z[employer] Labs[employer] reader has been performed. BREAST COMPOSITION: The breast tissue is almost entirely fatty FINDINGS: There are no suspicious abnormalities. There has been no significant interval change. IMPRESSION: No mammographic evidence for malignancy. BI-RADS Code: 1-Negative RECOMMENDATION: 1. Screening Mammogram in 1 year [place] thanks you for the opportunity to care for your patient. Workstation ID: [id number] FINAL REPORT Dictated By: Becka Valentine MD 10/06/2018 14:45 Assigned Physician: Becka Valentine MD Reviewed and Electronically Signed By: Becka Valentine MD 10/06/2018 14:45 Transcribed by: PIERRE 10/06/2018 14:45 Technologist: LRS Normal [facility] XR Bone Density DXA Axial Sk [facility] 10-06-2018 DXA Skeletal system Views for bone density ===== Bone Density Report ===== Name: JENNIFER DEBRA Mcmahon Age: 77 Sex: Female Ethnicity: White Date of : 1940 ----- Indication: postmenopausal osteoporosis; height loss; inflammatory bowel disease; hysterectomy; Referring Provider: NIA JOHNSON Study: Bone densitometry was performed. Exam Date: October 06, 2018 Accession number: [id number] Bone Density: ----- Region BMD T-score Z-score Classification ----- AP Spine(L1-L4) 1.150 0.9 3.5 Normal Femoral Neck (Left) 0.634 -1.9 0.3 Osteopenia Total Hip (Left) 0.789 -1.3 0.7 Osteopenia Femoral Neck (Right) 0.567 -2.5 -0.3 Osteoporosis Total Hip (Right) 0.738 -1.7 0.3 Osteopenia Total Hip Mean 0.764 -1.5 0.5 Osteopenia ----- World Health Organization criteria for BMD impression classify patients as: Normal (T-score at or above -1.0), Osteopenia (T-score between -1.0 and -2.5), or Osteoporosis (T-score at or below -2.5). 10-year Fracture Risk: ----- FRAX not reported because: Some T-score for Spine Total or Hip Total or Femoral Neck at or below -2.5 ----- Previous Exams: ----- Region Exam Age BMD T-score BMD Change BMD Change Date g/cm2 vs Baseline vs Previous ----- AP Spine(L1-L4) 10/06/2018 77 1.150 0.9 -2.6%* [...] -2.2 -11.8%* -11.8%* 03/02/2009 68 0.690 -1.4 ----- *Denotes significance at 95% confidence level, LSC for AP Spine = 0.022 g/cm2, LSC for Total Hip = 0.027 g/cm2 Clinical Information Provided by Patient: ----- Has used the following medications: Vitamin D, Calcium Has the following medical conditions: Inflammatory bowel diseases, Hysterectomy Patient maximum height was 64 Menopause Age: 51 No regular weight bearing exercise Drinks caffeinated beverages Onset of menses at age 14 Number of children 0 ----- Impression: The patient has osteoporosis, based on [...] cause or contribute to bone loss. The [place] [employer] Endocrinologists (AACE) and National [...] 10/08/2018 08:25 10/08/2018 08:21 Technologist: JONAS Golden [facility] ECG 12-LEADon 09-29-2018 Atrial Rate [facility] P Arboles [facility] P-R Interval [facility] Q-T Interval [facility] Q-T Interval (corrected) [facility] QRS Duration [facility] QTC Calculation (Bezet) [facility] R Arboles [facility] T Arboles [facility] Ventricular Rate [facility] Basic Metabolic Panel 06-25 Anion gap [Moles/Vol] 8.50 mmol/L Normal 8.00-16.00 [facility] Comment on above: Order Comment: Fasti ng: Unknown Performed By: #### C 80, C400, C408, C141, C48, C45, C119, C120 #### [facility] [address] [place] [address] B/C Ratio 15.0 Ratio Normal [facility] Comment on above: Order Comment: Fasti ng: Unknown Performed By: #### C 80, C400, C408, C141, C48, C45, C119, C120 #### [facility] [address] [place] [address] Calcium [Mass/Vol] 9.9 mg/dL Normal 8.5-10.5 [facility] Comment on above: Order Comment: Fasti ng: Unknown Performed By: #### C 80, C400, C408, C141, C48, C45, C119, C120 #### [facility] [address] [place] [address] Chloride [Moles/Vol] 102 mmol/L Normal 98-107 [facility] Comment on above: Order Comment: Fasti ng: Unknown Performed By: #### C 80, C400, C408, C141, C48, C45, C119, C120 #### [facility] [address] [place] [address] [place] [address] CO2 [Moles/Vol] 27.5 mmol/L Normal 22.0-30.0 [facility] Comment on above: Order Comment: Fasti ng: Unknown Performed By: #### C 80, C400, C408, C141, C48, C45, C119, C120 #### [facility] [address] [place] [address] [place] [address] Creatinine [Mass/Vol] 1.0 mg/dL Normal 0.1-1.2 [facility] Comment on above: Order Comment: Fasti ng: Unknown Performed By: #### C 80, C400, C408, C141, C48, C45, C119, C120 #### [facility] [address] [place] [address] [place] [address] GFR/1.73 sq M.predicted MDRD (S/P/Bld) [Vol rate/Area] 54 mL/min per 1.73 Low >60 [facility] Comment on above: Order Comment: Fasti ng: Unknown Result Comment: The GFR estimate is not adjusted for race. If the patient's race is -Brazilian, the GFR estimate must be multiplied by a factor of 1.21. Performed By: #### C 80, C400, C408, C141, C48, C45, C119, C120 #### [facility] [address] [place] [address] [place] [address] Glucose [Mass/Vol] 91 mg/dL Normal 74-100 [facility] Comment on above: Order Comment: Fasti ng: Unknown Performed By: #### C 80, C400, C408, C141, C48, C45, C119, C120 #### [facility] [address] [place] [address] Potassium [Moles/Vol] 3.8 mmol/L Normal 3.5-5.3 [facility] Comment on above: Order Comment: Fasti ng: Unknown Performed By: #### C 80, C400, C408, C141, C48, C45, C119, C120 #### [facility] [address] [place] [address] Sodium [Moles/Vol] 138 mmol/L Normal 135-145 [facility] Comment on above: Order Comment: Fasti ng: Unknown Performed By: #### C 80, C400, C408, C141, C48, C45, C119, C120 #### [facility] [address] [place] [address] Urea nitrogen [Mass/Vol] 15 mg/dL Normal 6-22 [facility] Comment on above: Order Comment: Fasti ng: Unknown Performed By: #### C 80, C400, C408, C141, C48, C45, C119, C120 #### [facility] [address] [place] [address] Direct LDLon 07-07-2018 Cholesterol in LDL [Mass/Vol] [...] C408, C141, C48, C45, C119, C120 #### [facility] [address] [place] [address] Free T4on 07-07-2018 Free T4 [Mass/Vol] 1.5 ng/dL Normal 0.7-1.8 [facility] Comment on above: Order Comment: Items in this order include: Free T4, Direct LDL , Urine, Random, Albumin/Crea , HDL, TSH, Triglyceride, Basic Metabolic Panel , Hepatic Panel, , Fasting: Unknown Performed By: #### C 80, C400, C408, C141, C48, C45, C119, C120 #### [facility] [address] [place] [address] HDLon 07-07-2018 Cholesterol in HDL [Mass/Vol] 109 mg/dL Normal >50 [facility] Comment on above: Order Comment: Items in this order include: Free T4, Direct LDL , Urine, Random, Albumin/Crea , HDL, TSH, Triglyceride, Basic Metabolic Panel , Hepatic Panel, , Fasting: Unknown Performed By: #### C 80, C400, C408, C141, C48, C45, C119, C120 #### [facility] [address] [place] [address] [address] [place] [address] Hepatic Panelon 07-07-2018 Albumin [Mass/Vol] 4.9 g/dL Normal 3.5-5.0 [facility] Comment on above: Order Comment: Fasti ng: Unknown Performed By: #### C 80, C400, C408, C141, C48, C45, C119, C120 #### [facility] [address] [place] [address] [place] [address] Alk Phos 79 U/L Normal 23-159 [facility] Comment on above: Order Comment: Fasti ng: Unknown Performed By: #### C 80, C400, C408, C141, C48, C45, C119, C120 #### [facility] [address] [place] [address] ALT [Catalytic activity/Vol] 21 U/L Normal 10-52 [facility] Comment on above: Order Comment: Fasti ng: Unknown Performed By: #### C 80, C400, C408, C141, C48, C45, C119, C120 #### [facility] [address] [place] [address] AST [Catalytic activity/Vol] 24 U/L Normal 11-43 [facility] Comment on above: Order Comment: Fasti ng: Unknown Performed By: #### C 80, C400, C408, C141, C48, C45, C119, C120 #### [facility] [address] [place] [address] Bili (Direct) 0.0 mg/dL Normal 0.0-0.3 [facility] Comment on above: Order Comment: Fasti ng: Unknown Performed By: #### C 80, C400, C408, C141, C48, C45, C119, C120 #### [facility] [address] [place] [address] Bili (Indirect) 0.3 mg/dL Normal 0.0-1.1 [facility] Comment on above: Order Comment: Fasti ng: Unknown Performed By: #### C 80, C400, C408, C141, C48, C45, C119, C120 #### [facility] [address] [place] [address] Bilirubin [Mass/Vol] 1.0 mg/dL Normal 0.2-1.3 [facility] Comment on above: Order Comment: Fasti ng: Unknown Performed By: #### C 80, C400, C408, C141, C48, C45, C119, C120 #### [facility] [address] [place] [address] Protein [Mass/Vol] 7.5 g/dL Normal 6.3-8.4 [facility] Comment on above: Order Comment: Fasti ng: Unknown Performed By: #### C 80, C400, C408, C141, C48, C45, C119, C120 #### [facility] [address] [place] [address] TSHon 07-07-2018 TSH Qn 5.11 MIU/mL Normal 0.50-6.00 [facility] Comment on above: Order Comment: Items in this order include: Free T4, Direct LDL , Urine, Random, Albumin/Crea , HDL, TSH, Triglyceride, Basic Metabolic Panel , Hepatic Panel, , Fasting: Unknown Performed By: #### C 80, C400, C408, C141, C48, C45, C119, C120 #### [facility] [address] [place] [address] Triglycerideon 07-07-2018 CO2 [Moles/Vol] 107 mg/dL Normal <150 [facility] Comment on above: Order Comment: Fasti ng: Unknown Performed By: #### C 80, C400, C408, C141, C48, C45, C119, C120 #### [facility] [address] [place] [address] Urine, Random, Albumin/Creao n 07-07-2018 Albumin DL <= 20 mg/L (U) [Mass/Vol] 11.7 mg/dL High 0.0-1.6 [facility] Comment on above: Order Comment: Items in this order include: Free T4, Direct LDL , Urine, Random, Albumin/Crea , HDL, TSH, Triglyceride, Basic Metabolic Panel , Hepatic Panel, , Fasting: Unknown Performed By: #### C 80, C400, C408, C141, C48, C45, C119, C120 #### [facility] [address] [place] [address] Creatinine (U) [Mass/Vol] 95.2 mg/dL Normal 28.0-217.0 [facility] Comment on above: Order Comment: Items in this order include: Free T4, Direct LDL , Urine, Random, Albumin/Crea , HDL, TSH, Triglyceride, Basic Metabolic Panel , Hepatic Panel, , Fasting: Unknown Performed By: #### C 80, C400, C408, C141, C48, C45, C119, C120 #### [facility] [address] [place] [address] Urine Microalb/ Creat Ratio 122.9 mcg/mg creat High 0.0-29.9 [facility] Comment on above: Order Comment: [...] C408, C141, C48, C45, C119, C120 #### [facility] [address] [place] [address] CBC WITH AUTO DIFFERENTIALon 07-02-2018 Basophils #/vol (Bld) 0.04 10*3/uL [facility] Basophils/100 WBC (Bld) 0.5 % [facility] Eosinophils #/vol (Bld) 0.11 10*3/uL [facility] Eosinophils/100 WBC (Bld) 1.4 % [facility] Erythrocyte distribution width Entitic volume (RBC) 15.1 % High 11.6 - 14.8 % [facility] Hematocrit Volume Fraction (Bld) 38.0 % 36 - 46 % [facility] Hemoglobin mass conc (Bld) 12.6 g/dL 12 - 16 g/dL [facility] Immature granulocytes #/vol (Bld) 0.06 10*3/uL [facility] Immature granulocytes/100 WBC (Bld) 0.80 % [facility] Comment on above: The IG parameter is the percentage of metamyelocytes, myelocytes, and promyelocytes. Interpretation and review of laboratory results Abnormal [facility] Lymphocytes #/vol (Bld) 0.69 10*3/uL Low [facility] Lymphocytes/100 WBC (Bld) 8.7 % [facility] MCH Entitic mass (RBC) 32.4 pg 26 - [address] [facility] MCHC mass conc (RBC) 33.2 g/dL 31 - 37 g/dL [facility] MCV Entitic volume (RBC) 97.7 fL 80 - 100 fL [facility] Monocytes #/vol (Bld) 0.74 10*3/uL [facility] Monocytes/100 WBC (Bld) 9.3 % [facility] Neutrophils #/vol (Bld) 6.28 10*3/uL [facility] Neutrophils/100 WBC (Bld) 79.3 % [facility] Nucleated RBC #/vol (Bld) 0.00 10*3/uL [facility] Nucleated RBC/100 WBC Ratio (Bld) 0.0 % [facility] Platelet mean volume Entitic volume (Bld) 10.8 fL 9 - 15.5 fL [facility] Platelets #/vol (Bld) 216 10*3/uL [facility] RBC #/vol (Bld) 3.89 10*6/uL Low [facility] WBC #/vol (Bld) 7.92 10*3/uL [facility] Chem 7on 07-02-2018 Anion gap molar conc 16 mmol/L 10 - 20 mmol/L [facility] Chloride molar conc 103 mmol/L 98 - 108 mmol/L [facility] Creatinine mass conc 1.12 mg/dL 0.6 - 1 .2 mg/dL [facility] GFR/1.73 sq M predicted among non-blacks MDRD vol rate/area (S/P/Bld) The eGFR should be used for monitoring renal function only and not for medication dosing. [facility] GFR/1.73 sq M.predicted CKD-EPI vol rate/area (S/P/Bld) 47 Low >=60 mL/min/1.73 m2 [facility] Glucose mass conc 117 mg/dL High 65 - 99 mg/dL [facility] HCO3 molar conc 27 mmol/L 21 - 32 mmol/L [facility] Interpretation and review of laboratory results Abnormal [facility] Potassium molar conc 4.3 mmol/L 3.5 - 5 .1 mmol/L [facility] Sodium molar conc 142 mmol/L 135 - 145 mmol/L [facility] Urea nitrogen mass conc 24 mg/dL 8 - 25 mg/dL [facility] Urea nitrogen/Creatinine mass ratio 21.4 mg/mg High [facility] Otheron 07-02-2018 Extra Tube Hold for add-ons. [facility] Comment on above: Auto resulted. URINALYSISon 07-02-2018 Bacteria Auto Ql (U) Rare Abnormal None Se en /hpf [facility] Bilirubin Ql (U) Negative Negative [facility] th Clarity Refractometry automated Nom (U) Clear Clear [facility] Color Nom (U) Yellow Colorless, Yellow [facility] Epithelial cells.squamous Auto #/area (Urine sed) <1 [facility] Glucose Automated test strip mass conc (U) Negative Negative mg/dL [facility] Hemoglobin Automated test strip Ql (U) Negative Negative [facility] Hyaline casts Auto #/area (Urine sed) 3-5 Abnormal 0 - 2 /lpf [facility] Interpretation and review of laboratory results Abnormal [facility] Ketones mass conc (U) Negative Negati ve mg/dL [facility] Leukocyte esterase Automated test strip Ql (U) Negative Negative [facility] Mucus Auto #/area (Urine sed) Rare None Seen, Rare /lpf [facility] Nitrite Automated test strip Ql (U) Negative Negative [facility] pH (U) 6.0 [pH] [facility] Protein mass conc (U) Negative Negati ve mg/dL [facility] RBC Auto #/area (Urine sed) <1 [facility] Specific gravity Relative Density (U) 1.010 [facility] Urobilinogen mass conc (U) <2.0 <2.0 mg/dL [facility] WBC Auto #/area (Urine sed) <1 [facility] Microscopic examination is performed on all urinalysis samples and only positive findings are reported. The test for blood on the chemical analytic portion of urinalysis may also be positive due to hemoglobinuria and myoglobinuria and if red blood cells are present they are quantified by microscopic examination. [facility] Hepatic Function Panelon Alanine aminotransferase (ALT) 10 U/L Invalid Interpretation Code 0 - 40 U/L [facility] Albumin 4.4 g/dL Invalid Interpretation Code 3.2 - 5.2 g/dL [facility] Alkaline phosphatase (ALP) 58 U/L Invalid Interpretation Code 40 - 150 U/L [facility] Aspartate aminotransferase (AST) 15 U/L Invalid Interpretation Code 0 - 45 U/L [facility] Bilirubin (conjugated) 0.2 mg/dL Invalid Interpretation Code 0 - 0.4 mg/dL [facility] Bilirubin (total) 0.7 mg/dL Invalid Interpretation Code 0 - 1.3 mg/dL [facility] Protein 6.6 g/dL Invalid Interpretation Code 6 - 8 g/dL [facility] TSH with Reflex Free T4on Interpretation and review of laboratory results Normal Invalid Interpretation Code [facility] Thyroid stimulating hormone (TSH) 5.00 mcIU/mL Invalid Interpretation Code 0.32 - 5.00 [facility] XR Chest AP/PA and LATon XR Chest AP/PA and LAT 1. No acute cardiopulmonary process. 2. Stable hiatal hernia. 3. 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 [employer] Workstation ID: [id number] Invalid Interpretation Code [email or web address] XR Chest AP/PA and LAT EXAMINATION: 2- EW CHEST HISTORY: ORDERING SYSTEM PROVIDED HISTORY: [facility] [...] right rotator cuff surgery. 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 [employer]KR/dbg Workstation ID: [id number] Invalid Interpretation Code ALEKSANDAR CHRISTOPHER [facility] ECG 12 Leadon 04-08-2017 Atrial Rate Invalid Interpretation Code [facility] Work Phone: P Arboles Invalid Interpretation Code [facility] Work Phone: P-R Interval Invalid Interpretation Code [facility] [employer] Phone: Q-T Interval Invalid Interpretation Code [facility] [employer] Phone: Q-T Interval (corrected) Invalid Interpretation Code [facility] [employer] Phone: QRS Duration Invalid Interpretation Code [facility] [employer] Phone: QTC Calculation (Bezet) Invalid Interpretation Code [facility] [employer] Phone: R Arboles Invalid Interpretation Code [facility] [employer] Phone: T Arboles Invalid Interpretation Code [facility] [employer] Phone: Ventricular Rate Invalid Interpretation Code [facility] [employer] Phone: Hepatic Function Panelon Alanine aminotransferase (ALT) 9 U/L Invalid Interpretation Code 0 - 40 U/L [facility] Albumin 4.3 g/dL Invalid Interpretation Code 3.2 - 5.2 g/dL [facility] Alkaline phosphatase (ALP) 63 U/L Invalid Interpretation Code 40 - 150 U/L [facility] Aspartate aminotransferase (AST) 13 U/L Invalid Interpretation Code 0 - 45 U/L [facility] Bilirubin (conjugated) 0.2 mg/dL Invalid Interpretation Code 0 - 0.4 mg/dL [facility] Bilirubin (total) 0.4 mg/dL Invalid Interpretation Code 0 - 1.3 mg/dL [facility] Interpretation and review of laboratory results Normal Invalid Interpretation Code [facility] [facility] Protein 6.5 g/dL Invalid Interpretation Code 6 - 8 g/dL [facility] T4, Freeon 04-08-2017 Thyroxine (T4) free 1.5 ng/dL Invalid Interpretation Code 0.7 - 1.7 ng/dL [facility] TSH with Reflex Free T4on Interpretation and review of laboratory results Abnormal Invalid Interpretation Code [facility] Thyroid stimulating hormone (TSH) 8.89 mcIU/mL High 0.32 - 5.00 [facility] Vital Signs Date Time Vital Sign Value Performing Clinician Facility 08-08-2024 15:05-0400 Body height 149.86 cm [facility] 08-08-2024 15:05-0400 Body mass index (BMI) [Ratio] 32.6 kg/m2 [facility] 08-08-2024 15:05-0400 Body weight 73.4 kg [facility] 04-14-2024 11:31-0500 Body height 149.86 cm [facility] 04-14-2024 11:31-0500 Body mass index (BMI) [Ratio] 32.7 kg/m2 [facility] 04-14-2024 11:31-0500 Body weight 73.48 kg [facility] 04-14-2024 11:31-0500 Diastolic blood pressure 65 mm[Hg] [facility] 04-14-2024 11:31-0500 Heart rate 90 /min [facility] 04-14-2024 11:31-0500 Systolic blood pressure 96 mm[Hg] [facility] 02-11-2024 16:26-0400 Body height 160 cm Uziel Camarena DPM Work Phone: [facility] 02-11-2024 16:26-0400 Body mass index (BMI) [Ratio] 29.41 kg/m2 Uziel Camarena DPM Work Phone: [facility] 02-11-2024 16:26-0400 Body weight 75.3 kg Uziel Camarena DPM Work Phone: [facility] 02-11-2024 16:26-0400 Diastolic blood pressure 82 mm[Hg] Uziel Camarena DPM Work Phone: [facility] 02-11-2024 16:26-0400 Heart rate 74 /min Uziel Camarena DPM Work Phone: [facility] 02-11-2024 16:26-0400 Respiratory rate 18 /min Uziel Camarena DPM Work Phone: [facility] 02-11-2024 16:26-0400 Systolic blood pressure 126 mm[Hg] Uziel Camarena DPM Work Phone: [facility] 10-01-2023 14:35-0400 Body height 149.86 cm [facility] 10-01-2023 14:35-0400 Body mass index (BMI) [Ratio] 32.9 kg/m2 [facility] 10-01-2023 14:35-0400 Body weight 73.93 kg [facility] 10-01-2023 14:35-0400 Diastolic blood pressure 69 mm[Hg] [facility] 10-01-2023 14:35-0400 Heart rate 94 /min [facility] 10-01-2023 14:35-0400 Systolic blood pressure 102 mm[Hg] [facility] 02-17-2023 15:00-0400 Body height 149.86 cm Boyd Bustamante Other [facility] Other 02-17-2023 15:00-0400 Body mass index (BMI) [Ratio] 31.71 kg/m2 Boyd Bustamante Other [facility] Other 02-17-2023 15:00-0400 Body weight 71.22 kg Boyd Bustamante Other [facility] Other 02-17-2023 15:00-0400 Diastolic blood pressure 70 mm[Hg] Boyd Bustamante Other [facility] Other 02-17-2023 15:00-0400 SaO2% (BldA) [Mass fraction] 97 % Boyd Bustamante Other [facility] Other 02-17-2023 15:00-0400 Systolic blood pressure 90 mm[Hg] Boyd Bustamante Other [facility] Other 07-01-2022 15:30-0500 Body height 149.86 cm Boyd Bustamante Other [facility] Other 07-01-2022 15:30-0500 Body mass index (BMI) [Ratio] 32.92 kg/m2 Boyd Bustamante Other [facility] Other 07-01-2022 15:30-0500 Body weight 73.94 kg Boyd Bustamante Other [facility] Other 07-01-2022 15:30-0500 Diastolic blood pressure 72 mm[Hg] Boyd Bustamante Other [facility] Other 07-01-2022 15:30-0500 SaO2% (BldA) [Mass fraction] 98 % Boyd Bustamante Other [facility] Other 07-01-2022 15:30-0500 Systolic blood pressure 126 mm[Hg] Boyd Bustamante Other [facility] Other 01-06-2020 10:18-0400 BMI (Body Mass Index) 27.5 kg/m2 Leonora Saunders [facility] 01-06-2020 10:18-0400 Body weight 72.67 kg Leonora Saunders [facility] 01-06-2020 10:18-0400 BP Diastolic 68 mm[Hg] Leonora Saunders [facility] 01-06-2020 10:18-0400 BP Systolic 116 mm[Hg] Leonora Saunders [facility] 01-06-2020 10:18-0400 Height 162.6 cm Leonora [facility] 01-06-2020 10:18-0400 Pulse (Heart Rate) 57 /min Leonora Saunders [facility] 09-29-2018 14:07-0400 BMI (Body Mass Index) 32.27 kg/m2 Leonora Saunders [facility] 09-29-2018 14:07-0400 BP Diastolic 73 mm[Hg] Leonora Saunders [facility] 09-29-2018 14:07-0400 BP Systolic 122 mm[Hg] Leonora Saunders [facility] 09-29-2018 14:07-0400 Height 162.6 cm Lenoora Saunders [facility] 09-29-2018 14:07-0400 Pulse (Heart Rate) 63 /min Leonora Saunders [facility] 09-29-2018 14:07-0400 Weight 85.28 kg Leonora Saunders [facility] 07-02-2018 09:02-0500 BP Diastolic 56 mm[Hg] Tito [facility] 07-02-2018 09:02-0500 BP Systolic 127 mm[Hg] Tito [facility] 07-02-2018 09:02-0500 Pulse (Heart Rate) 70 /min [facility] 07-02-2018 09:02-0500 Pulse Oximetry 96 % [facility] 07-02-2018 09:02-0500 Respiratory Rate 16 /min [facility] 07-02-2018 05:27-0500 BMI (Body Mass Index) 36.22 kg/m2 [facility] 07-02-2018 05:27-0500 Body Temperature 98.6 [degF] [facility] 07-02-2018 05:27-0500 Height 162.6 cm [facility] 07-02-2018 05:27-0500 Weight 95.71 kg [facility] 04-08-2017 11:19-0500 BMI (Body Mass Index) 35.53 kg/m2 Leonora Saunders [facility] Work Phone: 04-08-2017 11:19-0500 BP Diastolic 74 mm[Hg] Leonora Saunders [facility] Work Phone: 04-08-2017 11:19-0500 BP Systolic 120 mm[Hg] Leonora Saunders [facility] Work Phone: 04-08-2017 11:19-0500 Height 162.6 cm Leonora Saunders [facility] Work Phone: 04-08-2017 11:19-0500 Pulse (Heart Rate) 66 /min Leonora Saunders [facility] Work Phone: 04-08-2017 11:190500 Weight 93.89 kg Leonora Saunders [facility] Work Phone: Encounters Encounter Date Encounter Type Care Provider Facility Start: 12-26-[address] [facility] Start: 12-13-2024 End: 12-13-2024 ambulatory [facility] Start: 12-09-[address] [facility] Start: 12-08-2024 ambulatory [facility] Start: 10-25-2024 End: 10-25-2024 ambulatory [facility] Start: 10-24-2024 ambulatory [facility] Start: 09-29-2024 ambulatory [facility] Start: 09-26-2024 ambulatory [facility] Start: 09-19-2024 ambulatory [facility] Start: 08-25-2024 End: 08-25-2024 Patient encounter procedure Boyd Bustamante MD Work Phone: [facility] [place] Work Phone: Start: 08-25-2024 End: 08-25-2024 ambulatory Boyd Bustamante MD Work Phone: [facility] Work Phone: Start: 08-08-2024 End: 08-08-2024 Patient encounter procedure Boyd Bustamante MD Work Phone: [facility] [place] Work Phone: Start: 08-08-2024 End: 08-08-2024 ambulatory Boyd Bustamante MD Work Phone: [facility] Work Phone: Start: 08-08-2024 End: 08-08-2024 ambulatory [facility] Work Phone: Start: 08-08-2024 End: 08-08-2024 Patient encounter procedure [facility] Work Phone: Start: 07-18-2024 End: 07-18-2024 Bamboo flowsheet Sruthi Calvillo MD Work Phone: [facility] Start: 07-18-2024 End: 07-18-2024 Bamboo flowsheet Sruthi Calvillo MD Work Phone: [facility] Start: 07-18-2024 End: 07-18-2024 Refill Cheryl Prestongarrett COT Work Phone: [facility] Comment on above: KCS (keratoconjuncti vitis sicca) (Primary Dx) Start: 04-28-2024 End: 05-06-2024 Telephone encounter Uziel Camarena DPM Work Phone: [facility] Start: 04-14-2024 End: 04-14-2024 ambulatory [facility] Work Phone: Start: 04-14-2024 End: 04-14-2024 Patient encounter procedure [facility] Work Phone: Start: 03-15-2024 End: 03-15-2024 ambulatory [facility] Start: 02-24-2024 Non-patient / Non-visit [facility] Work Phone: Start: 02-24-2024 End: 02-24-2024 ambulatory [facility] Start: 02-23-2024 End: 02-23-2024 ambulatory [facility] Start: 02-11-2024 End: 02-11-2024 Patient encounter procedure Uziel Camarena DPM Work Phone: [facility] Comment on above: Metatarsal deformity , right (Primary Dx); Onychomycosis; Toe pain, bilateral; Metatarsal deformity, left Start: 02-11-2024 End: 02-11-2024 ambulatory UZIEL CAMARENA Not Available Start: 02-11-2024 End: 02-11-2024 Adán Camarena DPM Work Phone: [facility] Start: 02-11-2024 End: 02-11-2024 Artieboo flowsheet Uziel Camarena DPM Work Phone: [facility] Start: 01-20-2024 End: 01-20-2024 [facility] Start: 01-13-2024 ambulatory [facility] Start: 01-13-2024 ambulatory [facility] Start: 01-13-2024 End: 01-13-2024 ambulatory [facility] Start: 01-06-2024 End: 01-06-2024 ambulatory SRUTHI CALVILLO Not Available Start: 12-03-2023 End: 12-03-2023 ambulatory UZIEL CAMARENA Not Available Start: 10-01-2023 End: 10-01-2023 ambulatory [facility] Work Phone: Start: 10-01-2023 End: 10-01-2023 Patient encounter procedure [facility] Work Phone: Start: 09-29-2023 Non-patient / Non-visit [facility] Work Phone: Start: 08-19-2023 ambulatory NIA JOHNSON [facility] Start: 08-19-2023 ambulatory NIA JOHNSON [facility] Start: 08-19-2023 ambulatory NIA JOHNSON [facility] Start: 07-17-2023 Non-patient / Non-visit [facility] Work Phone: Start: 02-17-2023 End: 02-17-2023 ambulatory Boyd Bustamante Other [facility] Other Start: 02-17-2023 Office outpatient vi sit 15 minutes Boyd Bustamante [facility] Start: 01-21-2023 End: 01-21-2023 ambulatory Boyd Bustamante Other [facility] Other Start: 01-21-2023 Telephone encounter Boyd Bustamante [facility] Start: 01-19-2023 End: 01-19-2023 ambulatory Boyd Bustamante Other [facility] Other Start: 01-19-2023 Telephone encounter Boyd Bustamante [facility] Start: 11-28-2022 End: 11-28-2022 ambulatory Boyd Bustamante Other [facility] Other Start: 11-28-2022 Telephone encounter Boyd Bustamante [facility] Start: 10-22-2022 End: 10-22-2022 ambulatory Boyd Bustamante Other [facility] Other Start: 10-22-2022 Telephone encounter Boyd Bustamante [facility] Start: 10-21-2022 End: 10-21-2022 ambulatory Boyd Bustamante Other [facility] Other Start: 10-21-2022 Telephone encounter Boyd Bustamante [facility] Start: 09-24-2022 End: 09-25-[address] BOYD BUSTAMANTE Facility:[facility] Start: 08-19-2022 End: 08-19-2022 ambulatory Boyd Bustamante Other [facility] Other Start: 08-19-2022 Telephone encounter Boyd Bustamante [employer] Representative Start: 08-12-2022 End: 08-13-[address] BOYD BUSTAMANTE [facility] Other Start: 08-12-2022 Telephone encounter Boyd Bustamante [facility] Start: 07-24-2022 End: 07-25-[address] BOYD BUSTAMANTE Facility:[facility] Start: 07-17-[address] BOYD BUSTAMANTE [facility] ity:[facility]1 Start: 07-02-2022 End: 07-02-2022 ambulatory Boyd Bustamante Other [facility] Other Start: 07-02-2022 Telephone encounter Boyd Bustamante [facility] Start: 07-01-2022 End: 07-01-2022 ambulatory Boyd Bustamante Other [facility] Other Start: 07-01-2022 Patient encounter procedure Boyd Bustamante [facility] Start: 09-18-2020 Refill Leonora Saunders MD Work Phone: [facility] Comment on above: Medication Refill Start: 06-14-2020 End: 06-14-2020 Orders Only Tessy Gomez Work Phone: [facility] Start: 02-03-2020 End: 02-07-2020 Patient encounter procedure NIA JOHNSON [facility] Start: 01-09-2020 End: 01-09-2020 Patient encounter procedure Shelia Beckett Work Phone: [facility] Start: 01-06-2020 End: 01-10-2020 Patient encounter procedure LEONORA SAUNDERS [facility] Start: 01-06-2020 End: 01-07-2020 Patient encounter procedure LEONORA SAUNDERS [facility] Start: 01-06-2020 End: 01-06-2020 Office outpatient visit 15 minutes Leonora Saunders Work Phone: [facility] Comment on above: PAF (paroxysmal atri al fibrillation) (HCC) (Primary Dx); [facility] current use of 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 drug; 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, unspecified type Start: 01-06-2020 End: 01-06-2020 Subsequent hospital visit by physician Leonora Saunders Work Phone: [facility] Comment on above: [facility] current us e of 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 drug; PAF (paroxysmal atrial fibrillation) (HCC) Start: 09-06-2019 End: 09-06-2019 Patient encounter procedure Leonora Saunders Work Phone: [facility] Start: 04-19-2019 End: 04-19-2019 Patient encounter procedure Leonora Saunders Work Phone: [facility] Start: 03-09-2019 End: 03-13-2019 Patient encounter procedure NIA JOHNSON [facility] Start: 03-07-2019 End: 03-07-2019 Patient encounter procedure Leonora Saunders Work Phone: [facility] Start: 09-29-2018 End: 09-29-2018 Office outpatient visit 25 minutes Leonora Saunders Work Phone: [facility] Comment on above: PAF (paroxysmal atri al fibrillation) (HCC) (Primary Dx); 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, unspecified type; [facility] current use of 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 drug Start: 09-28-2018 End: 09-28-2018 Patient encounter procedure Leonora Saunders Work Phone: [facility] Start: 08-11-2018 End: 08-11-2018 Patient encounter procedure Leonora Saunders Work Phone: [facility] Start: 07-05-2018 End: 07-05-2018 Patient encounter procedure Leonora Saunders Work Phone: [facility] Start: 07-02-2018 End: 07-02-2018 Evaluation and management of inpatient Tito Snell Work Phone: [facility] Start: 04-09-2018 End: 04-09-2018 Patient encounter procedure Leonora Saunders Work Phone: [facility] Start: 04-05-2018 End: 04-05-2018 Patient encounter Leonora Saunders Work Phone: [facility] Start: 12-30-2017 End: 12-30-2017 Patient encounter Leonora Mandel Honorio Work Phone: [facility] Start: 08-11-2017 Patient encounter Leonora Ramsaycarolin Saunders Work Phone: [facility] Start: 07-08-2017 End: 07-08-2017 Ambulatory Leonora Saunders Work Phone: [facility] Start: 06-17-2017 Ambulatory Leonora Ministerio Saunders Work Phone: [facility] Start: 04-08-2017 Office outpatient vi sit 15 minutes Leonora Saunders Work Phone: [facility] Start: 04-08-2017 End: 04-08-2017 Ambulatory Leonora Saunders Work Phone: [facility] Start: 03-24-2017 Ambulatory Leonora Saunders Work Phone: [facility] Start: 03-13-2017 Patient encounter Leonora Joseph Saunders Work Phone: [facility] Start: 01-09-2017 End: 01-09-2017 Patient encounter procedure Leonora Mandel Honorio Work Phone: [facility] Start: 12-01-2016 End: 12-01-2016 Patient encounter procedure Leonora Ministerio Saunders Work Phone: [facility] Procedures Date Procedure Procedure Detail Performing Clinician Start: 07-18-2024 Computerized ophthal janet imaging retina Sruthi Calvillo MD Work Phone: Start: 07-18-2024 End: 07-18-2024 Ophth medical xm&eval comprhnsv estab pt 1/> Intermediate stage nonexudative age-related macular degeneration of right eye Sruthi Calvillo MD Work Phone: Comment on above: Intermediate stage n onexudative age-related macular degeneration of right eye (Primary Dx); 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 Start: 01-06-2020 12 lead ECG Leonora Saunders Work Phone: Start: 01-06-2020 Standard chest X-ray St yeyo Saunders Work Phone: Start: 09-29-2018 12 lead ECG Leonora Saunders Work Phone: Start: 07-02-2018 Urinalysis Tito Ventura en Rimer Work Phone: Start: 07-02-2018 X-ray of [...] 07-02-2018 LIGHT BLUE TOP Tito Garcia llen Claudiaer Work Phone: Start: 07-02-2018 LIGHT GREEN TOP Tito Taylorer Work Phone: Start: 07-02-2018 PINK TOP Tito All en Rimer Work Phone: Start: 07-02-2018 RAINBOW DRAW Tito All [facility] Work Phone: Removal of suture Boyd Bra un Other Removal of suture Boyd Bra un Other Plan of Treatment Date Care Activity Detail Author Start: 05-03-2031 Tetanus vaccination Tetanus: Every 1 0yrs [facility] Start: 01-19-2025 End: 01-19-2025 Patient encounter procedure 01/19/2025 2:00 PM EDT Office Visit [facility] [address] [place] [address] Sruthi Calvillo MD [address] [place] [address] [facility] Start: 07-18-2024 End: 07-18-2024 Patient encounter procedure 07/18/2024 1:45 PM EST Office Visit [facility] [address] [place] [address] Sruthi Calvillo MD [address] [place] [address] Arrived [facility] Comment on above: Arrived Start: 07-06-2024 End: 07-06-2024 Patient encounter procedure 07/06/2024 1:15 PM EST Office Visit [facility] [address] [place] [address] Sruthi Calvillo MD [address] [place] [address] [facility] Start: 05-26-2024 End: 05-26-2024 Patient encounter procedure 05/26/2024 1:50 PM EST Procedure Visit [facility] [address] [facility] [address] [place] [id number] Uziel Camarena DPM [address] [address] [facility] Start: 02-11-2024 End: 02-11-2024 Patient encounter procedure 02/11/2024 4:30 PM EDT Procedure Visit [facility] [address] [place] [address] Uziel Camarena DPM [address] [address] Onychomycosis (Primary Dx); Toe pain, bilateral; Metatarsal deformity, right; Metatarsal deformity, left [facility] Comment on above: Onychomycosis (Prima ry Dx); Toe pain, bilateral; Metatarsal deformity, right; Metatarsal deformity, left Start: 01-24-2024 Influenza vaccination Influenza Vacc ine (#1) [facility] Start: 01-23-2022 Influenza vaccination Sequenti al Influenza Vaccine (#1) [facility] Start: 01-05-2021 CLASS III : OFFICE VISIT CLASS III : OFFICE VISIT [facility] Start: 08-02-2020 Thyroid stimulating hormone measurement Class III : TSH [facility] Start: 07-08-2020 Alanine aminotransfe rase measurement CLASS III : ALT [facility] Start: 03-09-2020 CLASS III : EKG CLASS III : G [facility] Start: 02-10-2020 History and physical examination, annual for health maintenance Wellness Visit [facility] Start: 01-24-2020 Influenza vaccinatio n given Sequential Influenza Vaccine (#1) [facility] Start: 09-30-2019 CLASS III : OFFICE VISIT CLASS III : OFFICE VISIT [facility] Start: 09-28-2019 CLASS III : EKG CLASS III : EKG [facility] Start: 09-08-2019 CLASS III : ALT CLASS III : ALT [facility] Start: 09-08-2019 CLASS III : AST CLASS III : AST [facility] Start: 09-08-2019 CLASS III : TSH CLASS III : TSH [facility] Start: 03-30-2019 CLASS III : ALT CLASS III : ALT [facility] Start: 03-30-2019 CLASS III : AST CLASS III : AST [facility] Start: 03-30-2019 CLASS III : TSH CLASS III : TSH [facility] Start: 03-04-2019 [facility] III [facility] Start: 01-23-2019 Influenza vaccinatio n given [facility] Start: 09-29-2018 End: 09-29-2018 Appointment [facility] Start: 09-02-2018 CLASS III : ALT CLASS III : ALT [facility] Start: 09-02-2018 CLASS III : AST CLASS III : AST [facility] Start: 09-02-2018 CLASS III : TSH CLASS III : TSH [facility] Start: 07-08-2018 CLASS III : EKG CLASS III : EKG [facility] Start: 04-10-2018 Pneumococcal Vaccine : 65+ Years (2 of 2 - PPSV23 or PCV20) Pneumococcal Vaccine: 65+ Years (2 of 2 - PPSV23 or PCV20) [facility] Start: 04-08-2018 CLASS III : OFFICE VISIT CLASS III : OFFICE VISIT [facility] Phone: Start: 01-23-2018 Influenza vaccination [facility] Start: 01-23-2018 Influenza vaccinatio n given SEQUENTIAL INFLUENZA VACCINE (#1) [facility] Start: 01-06-2018 CLASS III : EKG CLASS III : EKG [facility] Phone: Start: 01-05-2018 CLASS III : ALT CLASS III : ALT [facility] Start: 01-05-2018 CLASS III : AST CLASS III : AST [facility] Start: 01-05-2018 CLASS III : TSH CLASS III : TSH [facility] Start: 10-06-2017 CLASS III : ALT CLASS III : ALT [facility] Phone: Start: 10-06-2017 CLASS III : AST CLASS III : AST [facility] Phone: Start: 10-06-2017 CLASS III : TSH CLASS III : TSH [facility] Phone: Start: 07-09-2017 CLASS III : ALT CLASS III : ALT [facility] Phone: Start: 07-09-2017 CLASS III : AST CLASS III : AST [facility] Phone: Start: 07-09-2017 CLASS III : TSH CLASS III : TSH [facility] Phone: Start: 04-04-2017 CLASS III : EKG CLASS III : EKG [facility] Phone: Start: 04-02-2017 CLASS III : OFFICE VISIT CLASS III : OFFICE VISIT [facility] Phone: Start: 01-23-2017 Influenza vaccination SEQUENTI AL INFLUENZA VACCINE (#1) [facility] Work Phone: Start: 01-23-2017 SEQUENTIAL INFLUENZA VACCINE (#1) SEQUENTIAL INFLUENZA VACCINE (#1) [facility] Work Phone: Start: 09-30-2016 CLASS III : ALT CLASS III : ALT [facility] Phone: Start: 09-30-2016 CLASS III : AST CLASS III : AST [place] [facility] Work Phone: Start: 09-30-2016 CLASS III : TSH CLASS III : TSH [facility] Work Phone: Start: 11-15-2015 Pneumococcal vaccination PNEUM OCOCCAL VACCINE AGE 65+ (2 of 2 - PPSV23) [facility] Start: 11-15-2015 Pneumococcal Vaccine : 65+ Years (2 of 2 - PPSV23 or PCV20) Pneumococcal Vaccine: 65+ Years (2 of 2 - PPSV23 or PCV20) [facility] Start: 11-15-2015 Pneumococcal Vaccine : Age 65+ (2 - PPSV23 if available, else PCV20) Pneumococcal Vaccine: Age 65+ (2 - PPSV23 if available, else PCV20) [facility] Start: [address] [facility] Start: 2005 Pneumococcal vaccination PNEUM OCOCCAL VACCINE AGE 65+ (1 of 2 - PCV13) [facility] Work Phone: Start: 2005 PNEUMOCOCCAL VACCINE AGE 65+ (1 of 2 - PCV13) PNEUMOCOCCAL VACCINE AGE 65+ (1 of 2 - PCV13) [facility] Work Phone: Start: 2000 Zoster vacc, sc ZOSTER VACCINE [facility] Work Phone: Start: 1990 Administration of he rpes zoster vaccine ZOSTER VACCINES (1 of 2) [facility] Start: 1990 ZOSTER VACCINES (1 of 2) ZOSTE R VACCINES (1 of 2) [facility] Start: 12-18-1959 Administration of he rpes zoster vaccine Zoster Vaccines (1 of 2) [facility] Start: 1958 Hepatitis C antibody , confirmatory test Hepatitis C Screening [facility] Start: 1952 Adolescent depressio n screening assessment Depression Screening (PHQ9) [facility] Start: 1952 Depression screening using PHQ-9 (Patient Health Questionnaire 9) score Depression Screening (PHQ-2/9) [facility] Start: 12-18-1943 History and physical examination, annual for health maintenance Wellness Visit [facility] Start: 06-19-1941 COVID-19 Vaccine (#1) COVID-19 Vacci ne (#1) [facility] Start: 1940 DEXA SCAN DEXA SCAN [facility] Work Phone: Start: 1940 Fall risk assessment Falls Risk Asse ssment [facility] Start: 1940 Protein mass conc Mammogram [facility] Start: 1940 Screening mammography Mammogram [facility] Start: 1940 TETANUS EVERY 10 YR TETANUS EVERY 10 YR [facility] Work Phone: Start: 1940 End: 1940 Screening for osteoporosis DEXA SCAN [facility] Start: 1940 End: 1940 Tetanus vaccination [facility] Work Phone: End: 07-02-2018 Bacteria identified Aer cx Nom (Unsp spec) Urine Aerobic Culture Routine Once for 1 Occurrences starting 07/02/2018 until 07/02/2018 [facility] Comment on above: Once for 1 Occurrenc es starting 07/02/2018 until 07/02/2018 Bacteria identified Aer cx Nom (Unsp spec) Urine Aerobic Culture Routine 07/02/2018 8:08 AM EST [facility] Comprehensive metabo lic 2000 panel - Serum or Plasma [facility] X-ray of chest and abdomen XR Ab domen 2 Views With Chest 1 View STAT 07/02/2018 6:50 AM EST [facility] Immunizations Immunization Date Immunization Notes Care Provider Joi acuña 04-11-2023 influenza virus vacc ine, unspecified formulation Uziel Camarena DPM Work Phone: [facility] Payers Date Payer Category Payer Self-pay 2021 Medicaid [employer] MEDICARE A DVANTAGE [id number] 2014 Medicare [id number] 2014 Medicare [id number] 2014 Medicare AETNA [facility] DICARE AETNA MEDICARE PLAN (PPO) [id number] 2014-Present [id number] 2014 Medicare [id number] 1959 Medicare [id number] 1940 Unknown [id number] [id number] 1940 Unknown [id number] 2.16.840.1.593697.3.579.2.900 1940 Unknown [id number] 2.16.840.1.263668.3.579.2.900 1940 Unknown [id number] 2.16.840.1.861867.3.579.2.900 1940 Unknown [id number] 2.16.840.1.688133.3.579.2.903 1940 Unknown [id number] 2.16.840.1.502351.3.579.2.903 1940 Unknown [id number] 2.16.840.1.987690.3.579.2.593 1940 Unknown [id number] 2.16.840.1.443437.3.579.2.593 1940 Unknown [id number] 2.16.840.1.340671.3.579.2.593 1940 Unknown [id number] 2.16.840.1.374949.3.579.2.593 1940 Unknown [id number] 2.16.840.1.663468.3.579.2.1259 1940 Unknown [id number] 2.16.840.1.705479.3.579.2.1259 1940 Unknown [id number] 2.16.840.1.004318.3.579.2.1259 1940 Unknown [id number] 2.16.840.1.484157.3.579.2.1259 Medicare Medicare [id number] Unknown [id number] [id number] Unknown [id number] [id number] Social History Date Type Detail Facility Start: 04-08-2017 End: 02-19-2023 Tobacco smoking status [facility] Former smoker [facility] Work Phone: End: 05-25-1969 History of tobacco use Current smoker [facility] Work Phone: Start: 1940 Sex Assigned At Not on file [facility] Work Phone: Start: 07-02-2018 End: 01-06-2020 Alcohol intake Current non-drinker of alcohol (finding) [facility] Exposure to SARS-CoV-2 (event) Not sure [facility] Start: 01-06-2020 End: 02-19-2023 Tobacco use and exposure Never used [facility] End: 05-25-1969 History of tobacco use Cigarette Smoker [facility] Start: 01-06-2024 End: 02-11-2024 Sex Assigned At [facility] Other Start: 1940 Sex Assigned At Female [facility] Tobacco smoking status [facility] Unknown if ever smoked [facility] Work Phone: Start: 04-14-2024 End: 08-26-2024 Sex Female (finding) [facility] Start: 02-11-2024 End: 07-18-2024 Alcoholic beverage intake Lifetime non-drinker (finding) [facility] Start: 01-06-2024 End: 02-11-2024 History of Social function [facility] NEGATED: Highlighted rowStart: NINF History of tobacco use Passive smoker [facility] Clinical Notes 09-18-2020 to 12-13-2024 Note Date & Type Note Facility 12-13-2024 Note [facility] Consult Note Reason for visit: Afib, s/p DCCV on amiodarone 05/11/23 12/13/24 Patient had a device check which shows that he has diaphragmatic stim from the LV lead. Although the LV lead placement has been that resulted in improvement of EF to 65% the pressures are high and this led to early depletion of battery with now 2 years of battery life left. At this stage we are thinking of considering to change it to her septal lead placement 10/25/2024 Patient is here today for a 6 month follow up appointment. Patient states she had covid in April and has been tired since then. Patient complains of OREILLY. Patient elaina chest pain, leg swelling. Device check reveals 100% RV BiV pacing. Last echocardiogram from 03/14/2024 shows EF of normalized to 65%, A-fib burden was noted to be 4.8% Review of Systems Cardiovascular: Positive for dyspnea on exertion. 03/15/24 Patient here for device check and follow up. Had echo yesterday. She is up 9# from apt 3 weeks ago. She's been taking lasix daily. Denies chest pain, SOB, palpitations, and bleeding on Eliquis. Patient underwent AV node ablation and BiV SHIPPING SUPPORT-P upgrade on 01/13/2024. Unfortunately she did not have locations well thresholds could be good without diaphragmatic stim. This has been a challenge and then subsequent follow-up the numbers are also high. However, hr EF has come to normal with SHIPPING SUPPORT. 12/08/23 patient underwent cardioversion on 07/22/2023 and [...] this 02/17/23 HPI: Debra García is a 83 y.o. year old with past medical history of htn, GERD, sleep apnea, mitral valve prolapse, A-fib, c-diff, TIA, HLD, it is noted in her H&P per PCP she has been on a medication for afib but it caused her thyroid issues. She had previous seen a containers sales representative and an outlying facility and recently moved here about 2 years ago and has not established with a containers sales representative. She was seen by Ranjan SOSA and subsequently started on anticoagulation with Eliqukelly. previously she had afib ablation with [facility] before 2009 had for unclear reasons was not placed on anticoagulation when he saw her. she got admitted to [place] ED on 02/06/2023 following a fall. versus attributed to be a mechanical fall as she tripped on the corner curb. no loss of consciousness. CT of the head was negative for any hemorrhage. she had some lacerations which were sutured. She had a recent echocardiogram done which showed cardiomyopathy with a EF of 35 to 40%. [id number] at least 6 for age, gender, hypertension, TIA -not anticoagulated ECG 02/17/23 Afib with RVR 02/06/2023 shows atrial fibrillation 12/03/2022 A-fib 100bpm 06/11/2020 sinus rhythm Echocardiogram 02/02/2023 PMH: Past Medical History: Diagnosis Date Acute on chronic systolic heart failure (CMS/HCC) 02/17/2023 AV block 04/10/2023 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 04/08/2017 Longstanding persistent atrial fibrillation (CMS/HCC) 04/08/2017 PSH: No past surgical history on file. SH: Social Drivers of Health Tobacco Use: Medium Risk (10/25/2024) Patient History Smoking Tobacco Use: Former Smokeless [...] Transportation Needs: No Transportation Needs (04/10/2023) Transportation (more content not included)... [facility] 10-25-2024 Note [facility] Consult Note Reason for visit: Afib, s/p DCCV on amiodarone 05/11/23 10/25/2024 Patient is here today for a 6 month follow up appointment. Patient states she had covid in April and has been tired since then. Patient complains of OREILLY. Patient elaina chest pain, leg swelling. Device check reveals 100% RV BiV pacing. Last echocardiogram from 03/14/2024 shows EF of normalized to 65%, A-fib burden was noted to be 4.8% Review of Systems Cardiovascular: Positive for dyspnea on exertion. 03/15/24 Patient here for device check and follow up. Had echo yesterday. She is up 9# from apt 3 weeks ago. She's been taking lasix daily. Denies chest pain, SOB, palpitations, and bleeding on Eliquis. Patient underwent AV node ablation and BiV SHIPPING SUPPORT-P upgrade on 01/13/2024. Unfortunately she did not have locations well thresholds could be good without diaphragmatic stim. This has been a challenge and then subsequent follow-up the numbers are also high. However, hr EF has come to normal with SHIPPING SUPPORT. 12/08/23 patient underwent cardioversion on 07/22/2023 and [...] this 02/17/23 HPI: Debra García is a 83 y.o. year old with past medical history of htn, GERD, sleep apnea, mitral valve prolapse, A-fib, c-diff, TIA, HLD, it is noted in her H&P per PCP she has been on a medication for afib but it caused her thyroid issues. She had previous seen a containers sales representative and an outlying facility and recently moved here about 2 years ago and has not established with a containers sales representative. She was seen by Ranjan SOSA and subsequently started on anticoagulation with Eliquis. previously she had afib ablation with [facility] before 2009 had for unclear reasons was not placed on anticoagulation when he saw her. she got admitted to [place] ED on 02/06/2023 following a fall. versus attributed to be a mechanical fall as she tripped on the corner curb. no loss of consciousness. CT of the head was negative for any hemorrhage. she had some lacerations which were sutured. She had a recent echocardiogram done which showed cardiomyopathy with a EF of 35 to 40%. [id number] at least 6 for age, gender, hypertension, TIA -not anticoagulated ECG 02/17/23 Afib with RVR 02/06/2023 shows atrial fibrillation 12/03/2022 A-fib 100bpm 06/11/2020 sinus rhythm Echocardiogram 02/02/2023 PMH: Past Medical History: Diagnosis Date Acute on chronic systolic heart failure (CMS/HCC) 02/17/2023 AV block 04/10/2023 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 04/08/2017 Longstanding persistent atrial fibrillation (CMS/HCC) 04/08/2017 PSH: History reviewed. No pertinent surgical history. SH: Social Determinants of Health Tobacco Use: Medium Risk (10/25/2024) Patient History Smoking Tobacco Use: Former Smokeless [...] Not on file Physically Abused: Not on cliff (more content not included)... [facility] 08-08-2024 Evaluation note Diagnosis Onset Date Resolution Acid reflux disease acute August 08, 2024 2:23pm History of Clostridioides difficile colitis acute August 08, 2024 2:23pm Ulcerative (chronic) pancolitis with other complication acute August 08, 2024 2:23pm [facility] Work Phone: 1(810) 648-174302-24-2025 History of Present illness Narrative* Sruthi Calvillo MD - 07/18/2024 1:45 PM EST Assessment/Plan ARMD OU, dry. Importance of smoking cessation, blood pressure control, and healthy diet were emphasized. Patient was advised to consider ultraviolet-B blocking sunglasses. In accordance with the AREDS study, appropriate antioxidant and mineral supplements were prescribed. Patient was instructed to self monitor their monocular vision (reading/Amsler Grid) at least weekly. Patient should immediately report any new onset of decreased vision or metamorphopsia. documented in this encounterSaint [facility] [id number] Telephone encounter Note* Telephone Encounter - Natalee Sampson - 05/06/2024 3:29 PM EST LVM [facility]ah[facility]71-[facility]-2029 Miscellaneous Notes* Telephone Encounter - Natalee Sampson - 05/06/2024 3:29 PM EST LVM * Telephone Encounter - Natalee Sampson - 05/02/2024 2:43 PM EST Lvm * Telephone Encounter - Natalee Sampson - 04/28/2024 4:20 PM EST Pt is a no show, lvm documented in this encounterSaint Alexius [id number] Telephone encounter Note* Telephone Encounter - Natalee Sampson - 05/02/2024 2:43 PM EST Lvm [facility] HospitalDizpqubaeg33-28-3479 Telephone encounter Note* Telephone Encounter - Natalee Sampson - 04/28/2024 4:20 PM EST Pt is a no show, lvm [facility] [id number] NoteUT Electrophysiology Consult Note Reason for visit: Afib, s/p DCCV on amiodarone 05/11/23 03/15/24 Patient here for device check and follow up. Had echo yesterday. She is up 9# from apt 3 weeks ago. She's been taking lasix daily. Denies chest pain, SOB, palpitations, and bleeding on Eliquis. Patient underwent AV node ablation and BiV SHIPPING SUPPORT-P upgrade on 01/13/2024. Unfortunately she did not have locations well thresholds could be good without diaphragmatic stim. This has been a challenge and then subsequent follow-up the numbers are also high. However, hr EF has come to normal with SHIPPING SUPPORT. 12/08/23 patient underwent cardioversion on 07/22/2023 and [...] this 02/17/23 HPI: Debra García is a 83 y.o. year old with past medical history of htn, GERD, sleep apnea, mitral valve prolapse, A-fib, c-diff, TIA, HLD, it is noted in her H&P per PCP she has been on a medication for afib but it caused her thyroid issues. She had previous seen a containers sales representative and an outlying facility and recently moved here about 2 years ago and has not established with a containers sales representative. She was seen by Ranjan SOSA and subsequently started on anticoagulation with Eliquis. previously she had afib ablation with [facility] before 2009 had for unclear reasons was not placed on anticoagulation when he saw her. she got admitted to [place] ED on 02/06/2023 following a fall. versus attributed to be a mechanical fall as she tripped on the corner curb. no loss of consciousness. CT of the head was negative for any hemorrhage. she had some lacerations which were sutured. She had a recent echocardiogram done which showed cardiomyopathy with a EF of 35 to 40%. [id number] at least 6 for age, gender, hypertension, [...] Reactions Adhesive Paper Tape is ok Sulfa (Sulfon (more content not included)...[facility] 02-23-2024 NoteUT Electrophysiology Progress Note Reason for visit: Afib [...] this 02/17/23 HPI: Debra García is a 83 y.o. year old with past medical history of htn, GERD, sleep apnea, mitral valve prolapse, A-fib, c-diff, TIA, HLD, it is noted in her H&P per PCP she has been on a medication for afib but it caused her thyroid issues. She had previous seen a containers sales representative and an outlying facility and recently moved here about 2 years ago and has not established with a containers sales representative. She was seen by Ranjan SOSA and subsequently started on anticoagulation with Tiffanie. previously she had afib ablation with [facility] before 2009 had for unclear reasons was not placed on anticoagulation when he saw her. she got admitted to [place] ED on 02/06/2023 following a fall. versus attributed to be a mechanical fall as she tripped on the corner curb. no loss of consciousness. CT of the head was negative for any hemorrhage. she had some lacerations which were sutured. She had a recent echocardiogram done which showed cardiomyopathy with a EF of 35 to 40%. [id number] at least 6 for age, gender, hypertension, [...] Last Year: Not (more content not included)... [facility]10-01-2024 NotePt is here for a one month follow up. Pt denies sob, chest pain, palpatations. Review of Systems Cardiovascular: Positive for leg swelling. Neurological: Positive for excessive daytime sleepiness. All other systems reviewed and are negative.[facility] 02-11-2024 History of Present illness Narrative* Uziel Camarena DPM - 02/11/2024 4:30 PM EDT Patient: Debra García : 1940 PCP: Boyd Bustamante MD SUBJECTIVE This is a 83 y.o. female that presents today with a CC of elongated, thick nails. Pt states nails have been elongated and thick for many years and cause pain with ambulation in shoegear. Pt has tried previous treatment with minimal relief. Pt presents today for nail care and treatment. Patient also has history of metatarsal deformity with metatarsal pain 1 through 5 metatarsals plantarly bilaterally in the past with orthotics Allergies: Allergies Allergen Reactions Sulfa Antibiotics Other Reaction(s): HIVES Wound Dressing Adhesive Itching Paper Tape is ok Past Medical History: Past Medical History: Diagnosis Date Cataract 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 (CMS/HCC) Macular degeneration OM (onychomycosis) Thyroid disease (CMS/HCC) Ulcerated colon Medications: Current Outpatient Medications: amiodarone (Pacerone) 200 MG tablet, Take by mouth., Disp: , Rfl: amLODIPine (Norvasc) 10 MG tablet, Take 10 mg by mouth in the morning., Disp: , Rfl: atorvastatin (Lipitor) 20 MG tablet, Take 20 mg by mouth in the morning., Disp: , Rfl: azaTHIOprine (Imuran) 50 MG tablet, Take 100 mg by mouth in the morning., Disp: , Rfl: Azelastine HCl 137 MCG/SPRAY solution, USE 1 SPRAY INTO EACH NOSTRIL EVERY 12 HOURS, Disp: , Rfl: balsalazide (Colazal) 750 MG capsule, Take 750 mg by mouth in the morning and 750 mg in the eveningand 750 mg before bedtime., Disp: , Rfl: buPROPion XL (Wellbutrin XL) 150 MG 24 hr tablet, Take 150 mg by mouth in the morning., Disp: , Rfl: Eliquis 5 MG tablet, Take 5 mg by mouth in the morning and 5 mg before bedtime., Disp: , Rfl: Farxiga 10 MG, Take 10 mg by mouth in the morning., Disp: , Rfl: levothyroxine (Synthroid, Levoxyl) 100 MCG tablet, Take 100 mcg by mouth in the morning. Take before meals., Disp: , Rfl: losartan (Cozaar) 50 MG tablet, Take 50 mg by mouth in the morning., Disp: , Rfl: metoprolol succinate XL (Toprol-XL) 25 MG 24 hr tablet, Take 25 mg by mouth in the morning., Disp: , Rfl: pantoprazole (ProtoNix) 40 MG EC tablet, Take 40 mg by mouth in the morning. Take before meals., Disp: , Rfl: potassium chloride CR (Klor-Con) 8 MEQ ER tablet, Take 8 mEq by mouth in the morning and 8 mEq before bedtime., Disp: , Rfl: venlafaxine XR (Effexor XR) 75 MG 24 hr capsule, Take 75 mg by mouth in the morning., Disp: , Rfl: Social History: Social History Socioeconomic History Marital status: Unmarried Spouse name: Not on file Number of children: Not on file Years of education: Not on file Highest education level: Not on file Occupational History Not on file Tobacco Use Smoking status: Former Types: Cigarettes Passive exposure: Never Smokeless tobacco: Never Vaping Use Vaping status: Unknown Substance and Sexual Activity Alcohol use: Never Drug use: Never Sexual activity: Defer Partners: Decline to Answer Other Topics Concern Not on file Social History Narrative Not on file Social Determinants of Health Financial Resource Strain: Low Risk (04/10/2023) [facility] from [facility], [facility] Overall Financial Resource Strain (CARDIA) Difficulty of Paying Living Expenses: Not hard at all Food Insecurity: No Food Insecurity (04/10/2023) Received from [facility], [facility], [facility], [facility] Hunger Vital Sign Within the past 12 months, you worried that your food would run out before you got the money to buymore.: Never true Ran Out of Food in the Last Year: Not on file Transportation Needs: No Transportation Needs (04/10/2023) Received from [facility], [facility], [facility] Transportation In the past 12 months, has lack of transportation kept you from medical appointments or from getting medications?: No Lack of Transportation (Non-Medical): Not on file Physical Activity: Not on file Stress: Not on file Social Connections: Not on file Intimate Partner Violence: Not At Risk (04/10/2023) Received from [facility], [facility] [place] Safety & Environment Within the last year, have you been afraid of your partner or ex-partner?: No Emotionally Abused: Not on file Physically Abused: Not on file Sexually Abused: Not on file In the past year have you been physically or sexually abused?: Not on file Housing Stability: Not on file (04/10/2023) ROS: General: denies fever, chills, fatigue, malaise Gastrointestinal: denies abdominal pain, ulcers, or changes in appetite or bowel habits Musculoskeletal: denies arthritis, denies loss of strength, pain to hip, knees, back Cardiovascular: Positive history of atrial fibrillation and taking blood thinners and has pacemaker OBJECTIVE LE EXAM: DERM: Elongated thick yellow crumbly nails digits 1 through 10. Positive hair growth b/l feet. VASC: Negative DP and negative PT pedal pulses NEURO: Gross sensation intact to bilateral feet ORTHO: Positive pain on palpation to nails 1 through 10 Plantar flexed metatarsal deformities 1 and 5 metatarsals bilaterally with negative pain on palpation to plantar metatarsal heads bilaterally ASSESSMENT 1. Onychomycosis 2. Toe pain, bilateral 3. Metatarsal deformity, right 4. Metatarsal deformity, left PLAN Discussed proper foot care with patient today. Debride nails in length and thickness digits 1 through 10 Continue with orthotics Uziel Camarena DPM documented in this encounterSaint Alexius [id number] NoteUT Electrophysiology Consult Note Reason for visit: [...] this 02/17/23 HPI: Debra García is a 83 y.o. year old with past medical history of htn, GERD, sleep apnea, mitral valve prolapse, A-fib, c-diff, TIA, HLD, it is noted in her H&P per PCP she has been on a medication for afib but it caused her thyroid issues. She had previous seen a containers sales representative and an outlying facility and recently moved here about 2 years ago and has not established with a containers sales representative. She was seen by Ranjan SOSA and subsequently started on anticoagulation with Tiffanie. previously she had afib ablation with [facility] before 2009 had for unclear reasons was not placed on anticoagulation when he saw her. she got admitted to [place] ED on 02/06/2023 following a fall. versus attributed to be a mechanical fall as she tripped on the corner curb. no loss of consciousness. CT of the head was negative for any hemorrhage. she had some lacerations which were sutured. She had a recent echocardiogram done which showed cardiomyopathy with a EF of 35 to 40%. [id number] at least 6 for age, gender, hypertension, [...] (5' 4 ) W (more content not included)...[facility]08-28-2024 NotePt is here for a wound check. Pt denies chest pain, sob, palpitations. Pt is here for a ablation Review of Systems Cardiovascular: Positive for leg swelling. Neurological: Positive for excessive daytime sleepiness. All other systems reviewed and are negative.[facility] 01-13-2024 NoteAV NODE ABLATION & SHIPPING SUPPORT-P (BiV PACEMAKER) UPGRADE PROCEDURE NOTE DATE OF PROCEDURE: 01/13/2024 PERFORMING PHYSICIAN: Dr. Param Padron FERMENTING CELLARS RECEIVER: Dr Dennys Moore CONSENT: Patient LOCATION: EP Lab PROCEDURE [...] c-diff, TIA, HLD had previous seen a containers sales representative. She was seen by Ranjan SOSA and subsequently started on anticoagulation with Eliquis. Previously she had afib ablation with [facility] before 2009 had for unclear reasons was not placed on anticoagulation when he saw her. She got admitted to [place] ED on 02/06/2023 following a fall. She [...] venous access was acquired and therafter the [place] sheath was advanced, and with manipulation, advanced wire into CS body. Mar[place] sheath was advanced into the body. I used an amplatz wire for support. [place] catheter was advanced and venogram was performed. [...] Following which, the pocket was revised for SHIPPING SUPPORT-P. Pocket hemostasis was secured and it was [...] on top. Lead parameters (more content not included)...[facility]08-21-2024 NotePatient: Debra García Procedure Information Date/Time: 01/13/24 1300 Procedures: AV node ablation - PC APPROVED to be done w biV upgrade Biventricular ICD upgrade - w av node ablation Location: [facility] 1 / [facility] (Cath) Providers: Param Padron MD Clinical information reviewed: Physical Exam Airway Mallampati: II TM distance: >3 FB Neck ROM: full Cardiovascular Dental Pulmonary Abdominal Anesthesia Plan ASA 3 CSE Anesthetic plan and risks discussed with patient. Use of blood products discussed with patient who. [facility]* Encounter Date Diagnosis Assessment Notes Treatment Notes Treatment Clinical Notes Jan, Visit for suture removal (ICD-10 - Z48.02) 3 sutures removed from R 3rd finger - tolerated well. Jan, Atrial fibrillation (ICD-10 - I48.91) BP low today. Pt states she just left Dr. Garay's office and she is scheduled for a heart cath. [facility] Other 02-07-2023 Evaluation note* Encounter Date Diagnosis [...] for Sleep study retitration and consultation with [place] sleep [facility]. Jun, Pain in right foot (ICD-10 - M79.671) Jun, Pain in left foot (ICD-10 - M79.672) Jun, Allergic rhinitis, unspecified seasonality, unspecified trigger (ICD-10 - J30.9) [facility] Other 04-27-2021 Telephone encounter Note* Telephone Encounter - Leonora Saunders - 09/18/2020 9:16 AM EDT Amiodarone was discontinued, last notes states the patient moved and has established care elsewhere. [id number] Miscellaneous Notes* Telephone Encounter - Leonora Saunders - 09/18/2020 9:16 AM EDT Amiodarone was discontinued, last notes states the patient moved and has established care elsewhere. documented in this encounterOhioHealthEvaluation note* Diagnosis PAF (paroxysmal atrial fibrillation) (HCC) Atrial fibrillation [facility] Other Evaluation note* Diagnosis Onset Date Resolution Status Lumbar back pain acute [facility] Work Phone: Evaluation noteNo assessment information available [facility] Work Phone: Evaluation note* Diagnosis Metatarsal deformity, right- Primary Onychomycosis Dermatophytosis of nail Toe pain, bilateral Metatarsal deformity, left documented in this encounter [facility] HealthcareEvaluation note* Diagnosis Intermediate stage nonexudative age-related macular degeneration of right eye- Primary 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 documented in this encounter [facility] HealthcareEvaluation note* Diagnosis KCS (keratoconjunctivitis sicca)- Primary Keratoconjunctivitis sicca, not specified as Sjogren's documented in this encounter [facility] HealthcareEvaluation note* Diagnosis Onset Date Resolution Status Admit Date Acid reflux disease acute August 08, 2024 2:23pm History of Clostridioides difficile colitis acute August 08 2:23pm Ulcerative (chronic) pancoli tis with other complication acute August 082024 2:23pm [facility] Work Phone: History general Narrative - Reported* [...] HYSTERECTOMY 1970 Hospitalization History SEE SURGICAL HX [facility] [employer] Other Assessments Diagnosis [facility] current use of ant iarrhythmic drug Diagnosis 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 Diagnosis 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 Diagnosis [...] (HCC)- Primary Atrial fibrillation 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, unspecified type exterminator 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 ( 1940) female) Date of service - 09/29/18 Primary healthcare providers: Nia Johnson MD (Family); Nia Johnson (Referring)? ASSESSMENT: 1. PAF (paroxysmal atrial fibrillation) (HCC) Stable. No clinical recurrence. Continue medical management. Follow-up EP clinic 1 year. 2. [facility] current use of 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 drug. Stable. Labs [...] rhythm, within normal limits Document generated by [employer] voice recognition dictation system to expedite reporting. Please excuse any syntax, spelling or grammatical errors caused by [employer] dictation. Medication list reviewed on 09/29/18 2:38 [...] on 09/29/18 2:38 PM Leonora Saunders MD, [facility], [facility]. Cardiac Electrophysiology, Cardiovascular Disease. [facility]. documented in this encounter* Nadiya Toro MA - 09/28/2018 5:13 PM EDT On 09/28/18 /Sabino Saunders reviewed patient's lab results dated 09/27/18. See closed Class III episode for MD documentation. documented in this encounter* Moon Li LPN - 03/07/2019 12:21 PM EDT Per conversation with staff/Kenia, she placed Amio lab orders in the [...] reminder letter mailed with a list of [facility] lab facilities with a note instructing pt to call the facility prior to going to make sure it is open. documented in this encounter* Shelia Beckett PharmD - 01/13/2020 12:38 PM EDT Several attempts to call patient and Candice Barnett RN, was able to connect with her today and instructed patient of [facility]'s recs. See telephone encounter dated 01/12/20. [...] up done Thank you * Shelia Beckett, Kiesha - 01/09/2020 8:45 AM EDT Debra García [...] of mild basilar fibrosis. Will route to GAN for final comment given CXR findings as [...] - 01/06/2020 10:40 AM EDT [facility] [address] [facility] [address] [facility] [id number] Cardiac Electrophysiology Clinic Office Visit Debra García (79 y.o. ( 1940) female) Date of service - 01/06/20 Primary healthcare providers: Nia Johnson MD (Family); No ref. provider found (Referring)? ASSESSMENT: 1. PAF (paroxysmal atrial fibrillation) (HCC) Stable. No clinical recurrence. Continue medical management. 2. [facility] current use of 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 drug. Stable. Continue follow-up in class III clinic. 4. 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, unspecified type Stable. Continue medical management. RECOMMENDATIONS: Patient is stable from a cardiac standpoint. Chest x-ray done today looks unremarkable. TSH and liver function studies will be drawn today, results are pending. Patient believes she is up-to-date on refills. Patient states that she has moved to [facility] and plans on transitioning all of [...] rhythm. No acute changes. Document generated by [employer] voice recognition dictation system to expedite reporting. Please excuse any syntax, spelling or grammatical errors caused by [employer] dictation. Medication list reviewed on 01/06/20 10:40 [...] on 01/06/20 10:40 AM Leonora Saunders MD, [facility], [facility]. Cardiac Electrophysiology, Cardiovascular Disease. [facility]. documented in this [...] be sent through Care Everywhere. 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 Advance Directives and Livin g Will 01/06/2020 9:39 AM Advance Directive Response Recorded Date/ Time Advance Directives No October 01, 2023 2:29pm Advance Directive Response Recorded Date/ Time Advance Directives No October 01, 2023 1:29pm Reason for Referral Status Reason Specialty Diagnoses / Procedures Referred By Contact Referred To Contact Pending Review Cardiology Diagnoses PAF (paroxysmal atrial fibrillation) ([facility]) Procedures ECG 12 Lead Leonora Saunders MD [address] [place] [address] Reason 08/15/22 [facility] Card iology at [facility]. No records here from [place] [facility]. Diagnosis 1 Atrial fibrillation (I48.91) Referral Organization [facility] [employer] ernie Referring Provider First Name Boyd Referring Provider Last Name Dianna Referring Provider Specialty [facility] Referred Organization Unknown Facility Referred Provider Carl Kuhn Referred Provider Specialty Cardiology Referral Priority Routine Referral Appointment Date 2022-08-15 General Notes Cinthia Jacobson 10:24:39 AM >received today, no notes to send with referral. I called patient and left detailed message to see if she can provide me the doctors name she saw in [place]. will follow back up Cinthia Jacobson 07/03/2022 08:27:02 AM >referral faxed, but still waiting on a call back from patient about old records Cinthia Jacobson 07/10/2022 09:19:20 AM >faxed first attempt letter Clinical Notes F: [phone] [employer] Ranjan Foster Reason *FU 07/30 CALL Meri julio csaul office - callouses and pain Diagnosis 1 Pain in right foot ( M79.671) Referral Organization [facility] [employer] ernie Referring Provider First Name Boyd Referring Provider Last Name Dianna Referring Provider Specialty [facility] Referred Organization [facility] Referred Provider Uziel Camarena Referred Address ,[place], [place],[address] Referred Provider Specialty Podiatry - S urgical Chiropody Referral Priority Routine General Notes Cinthia Jacobson 10:46:32 AM >received today, attachments made, notes locked, and referral faxed Cinthia Jacobson 07/09/2022 06:48:57 AM >faxed first attempt letter Cinthia Jacobson 07/16/2022 08:32:45 AM >faxed second attempt letter Indira Cinthia 07/23/2022 09:30:19 AM >faxed third attempt letter. will call next Clinical Notes [id number] Summary Purpose Family History No Family History Records Found Relationship Condition Age at Onset Recorded Date/T jessica father Unknown Not Specified Unknown Relationship Condition Age at Onset Recorded Date/T jessica father Unknown mother Unknown Chief Complaint and Reason for Visit Chief Complaint discuss PT/med revie w Reason for Visit Lumbar back pain Chief Complaint Admit Date medication refills April 14, 2024 11:25am Chief Complaint Admit Date Refer: ulcerative pancolitis August 08, 2024 2:23pm Reason for Visit Admit Date Acid reflux disease August 08, 2024 2:2 3pm History of Clostridioides difficile coli tis August 08, 2024 2:23pm Ulcerative (chronic) pancolitis with oth er complication August 08, 2024 2:23pm Chief Complaint Admit Date Refer: ulcerative pancolitis August 08, 2024 2:23pm K51.018 Z86.19 K21.9 August 08, 2024 3: 35pm Chief Complaint Admit Date Refer: ulcerative pancolitis August 08, 2024 2:23pm K51.018 Z86.19 K21.9 August 08, 2024 3: 35pm R71.0 D51.018 K21.9 August 25, 2024 2:47 pm Additional Source Comments Reason for Visit (unrecogniz ed section and content) Reason Comments Constipation Status Reason Specialty Diagnoses / Procedures Referre d By Contact Referred To Contact Reason Comments Follow-up OAF Reason Comments Labs Only amio lbs Reason Comments Annual Exam Reason Comments Medication Refill Reason Comments Toenail Care NON DM NAIL CARE Reason Comments Follow-up Macular Degeneration Reason Onset Date Comments Med Refill 07/18/2024 Mable Carrasquillo LISW - 07/02/2018 8:21 AM EST Consult Notes (unrecognized section and content) Associated Order(s): ED CONSULT TO MEDICAL - GENERAL INTERNAL MEDICINE DOCTOR COMPLEX DISCHARGE Date: 07/02/2018 Time: 8:21 AM Patient Name: Debra García Date of : 1940 Sex: Female Pt reports her sister is physically unable to transport her and that she does not have any other family nearby to assist. Pt reports she has some joradn with her but does not think she has enough to cover cost of cab, left credit cards at home. Pass provided and pt taken to [facility]. Discharge Readiness Expected Discharge Date: 07/02/18 [facility] Disposition D/C Disposition: Home Agency/Destination: Home Transportation Type: Cab(pass) Options Reviewed: List provided, Possible expense, Explained services/benefits Reason for Choice: Patient/Family prefernce in this encounter Nik Skelton RN - 07/02/2018 7:07 AM Nik Ruiz RN - 07/02/2018 6:46 AM Nik uRiz RN - 07/02/2018 6:35 AM Nik Ruiz [...] section and content) DATE CREATED AUTHOR 10/16/2018 [facility] DATE CREATED AUTHOR AUTHOR'S ORGANIZ ATION 03/25/2019 [facility] DATE CREATED AUTHOR AUTHOR'S ORGANIZ ATION 02/07/2020 [facility] DATE CREATED AUTHOR AUTHOR'S ORGANIZ ATION 02/07/2020 [facility] DATE CREATED AUTHOR AUTHOR'S ORGANIZ ATION 10/01/2022 [facility] DATE CREATED AUTHOR AUTHOR'S ORGANIZ ATION 08/20/2023 [facility] DATE CREATED AUTHOR AUTHOR'S ORGANIZ ATION 07/19/2024 [facility] EPIC DATE CREATED AUTHOR AUTHOR'S ORGANIZ ATION 08/28/2024 [facility] DATE CREATED AUTHOR AUTHOR'S ORGANIZ ATION 12/28/2024 [facility] Care Teams (unrecognized sec tion and content) Team Status: Active Member Role Status Dates Boyd Bustamante MD Primary Care Provider Active Team Status: Inactive Member Role Status Dates Boyd Bustamante MD Primary Care Provide r, Referring Provider Active Start: August 08, 2024 End: August 08, 2024 Kate Quiros DO Attending Provider Active St art: August 08, 2024 End: August 08, 2024 Senior Director Marketing Relationship Specialty Start Date End Date Nia Johnson MD PCP - General 06/06/11 Leonora Saunders MD [facility] 02/20/15 Team Status: Active Member Role Status Dates Boyd Bustamante MD Primary Care Provide r, Attending Provider Active Start: July 17, 2023 Team Status: Active Member Role Status Dates Boyd Bustamante MD Primary Care Provider Active Start: September 29, 2023 JOSE ALEJANDRO GuzmanC Attending Provider Active Start: September 29, 2023 Team Status: Inactive Member Role Status Dates Boyd Bustamante MD Primary Care Provide r, Attending Provider Active Start: October 01, 2023 End: October 01, 2023 Team Status: Active Member Role Status Dates Boyd Bustamante MD Primary Care Provider Active Start: February 24, 2024 JEMIMA Guzman Attending Provider Active Start: February 24, 2024 Team Status: Inactive Member Role Status Dates Boyd Bustamante MD Primary Care Provide r, Attending Provider Active Start: April 14, 2024 End: April 14, 2024 Senior Director Marketing Relationship Specialty Start Date End Date Boyd Bustamante MD [address] [facility] [place] [id number] PCP - General Family Medicine 12/11/22 Senior Director Marketing Relationship Specialty Start Date End Date Boyd Bustamante MD [address] [place] [phone] PCP - General Family Medicine 12/11/22 Senior Director Marketing Relationship Specialty Start Date End Date Boyd Bustamante MD [address] [facility] [place] [id number] PCP - General Family Medicine 12/11/22 Senior Director Marketing Relationship Specialty Start Date End Date Boyd Bustamante MD [address] [facility] [place] [address] PCP - General Family Medicine 12/11/22 Senior Director Marketing Relationship Specialty Start Date End Date Boyd Bustamante MD [address] [facility] [place] [address] PCP - General Family Medicine 12/11/22 Team Status: Inactive Member Role Status Dates Boyd Bustamante MD Primary Care Provider Active Start: August 08, 2024 End: August 08, 2024 Kate Quiros DO Attending Provider Active St art: August 08, 2024 End: August 08, 2024 Team Status: Inactive Member Role Status Dates Boyd Bustamante MD Primary Care Provider Active Start: August 25, 2024 End: August 25, 2024 Kate Quiros DO Attending Provider Active St art: August 25, 2024 End: August 25, 2024 Goals (unrecognized section and content) Goals may [...] BE BASED ON THE PRIMARY CLINICAL RECORDS. [facility]. provides no warranty or guarantee of the accuracy or completeness of information in this document.
[2025-01-06 12:30] LABS: Anion Gap 9.4; Blood Urea Nitrogen 13.0 mg/dL (7.0-18.0); Calcium 9.0 mg/dL (8.5-10.1); Carbon Dioxide 29.0 mmol/L (21.0-32.0); Chloride 108 mmol/L (98-107); Estimated GFR (African America >60 (>=60 mL/min/1.73m^2); Estimated GFR (Non-African Ame >60 (>=60 mL/min/1.73m^2); Glucose 120 mg/dL (74-106); Potassium 4.4 mmol/L (3.5-5.1); Sodium 142 mmol/L (136-145)
[2025-01-06 12:31] LABS: Hematocrit 38.2 % (36.0-48.0); Hemoglobin 12.9 g/dL (12.0-16.0); Immature Granulocytes Abs Auto 0.02 10^3/uL (0.00-0.03); Immature Granulocytes Pct Auto 0.5 % (0.0-0.5); Lymphocytes Absolute Auto 1.0 10^3/uL (1.2-3.8); Mean Corpuscular HGB Conc 33.8 g/dL (29.9-35.2); Mean Corpuscular Hemoglobin 31.7 pg (26.7-34.0); Mean Corpuscular Volume 93.9 fL (81.0-99.0); Platelet Count 205 10^3/uL (150-450); Red Blood Count 4.07 10^6/uL (4.20-5.40); White Blood Count 3.8 10^3/uL (4.0-11.0)
== END 2025-01-06 11:50 | disposition home or self-care (01) ==
LOC: LAB 11:52
PROVIDERS: PCP Family Medicine; Visit Provider Internal Medicine Cardiovascular Disease
DX: I50.41 Acute combined systolic (congestive) and diastolic (congestive) heart failure (principal)
CPT/HCPCS: 36415; 80048; 85025

== ENCOUNTER 2025-01-10 15:45 | Outpatient (OUT) | payer MEDICARE, SELFPAY ==
--- NOTE | 2025-01-10 15:54 | XR_ITS ---
The [address] [address] Patient Name: MAUREEN GARCÍA MRN: [id number] date: 1940 Sex: F Assigned Patient Location: [facility] Current Patient Location: [facility] Accession/Order Number: [id number] Exam Date: 01/10/2025 16:15 Report Date: 01/10/2025 16:18 At the request of: ROSALBA QUIROGA MD Procedure: XR chest 2V PA AND LATERAL CHEST: CLINICAL HISTORY: new pacemaker lead COMPARISON: 01/14/2024 FINDINGS: Unremarkable cardiac mediastinal silhouette. Retrocardiac hiatal hernia with air-fluid identified. Interval pacemaker resolution with new lead noted. No pneumothorax. Aortic vascular disease. Posterior changes right humerus. Multilevel degenerative changes of the thoracic spine with prior lower thoracic kyphoplasty noted. XR/XR chest 2V IMPRESSION: NO ACUTE CARDIOPULMONARY ABNORMALITY. Impression dictated by: Catrachito Callahan M.D. 01/10/2025 4:18 PM Dictation Location: [place] [address] Electronically authenticated by: [id number] Y Date: 01/10/2025 16:18
--- OUTSIDE RECORDS SUMMARY | 2025-01-10 16:35 | XMS_ITS | CCD ---
Author Organization 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 Leonora Saunders Unavailable Juni Johnsonine Dorota Primary Care Provider Leonora Saunders Unavailable [phone] Leonora Saunders Unavailable Lissa [facility] Provider LISSA [facility] Unava ilable LEONORA SAUNDERS Attending Unavailabl e LEONORA SAUNDERS Referring Unavailabl e LISSA [facility] Care Unava ilable LEONORA SAUNDERS Admitting Unavailabl e LEONORA SAUNDERS Referring [facility]availabl e [facility] L[facility] Care Unava ilable LEONORA SAUNDERS Attending Unavailismael e LSISA [facility] Unava ilable LEONORA SAUNDERS Admitting Unavailabl e LEONORA SAUNDERS Ref[facility] Leonora Saunders Unavailable Unavailismael e Lissa SCHAEFFER, [facility] Provi mervin Leonora Saunders MD Unavailable [...] NIA Attending Unavailable GIANNETTO, NIA Attending Unavailable GIANNHEBERT, NIA Attending Unavailable Boyd Bustamante MD Primary Care Provider [phone] SRUTHI CALVILLO Attending Unavailable UZIEL CAMARENA Attending Unavailable SRUTHI CALVILLO Attending Unavailable UZIEL CAMARENA Attending Unavailable Boyd Bustamante MD Primary Care Provider [phone] Ly Kate JUAREZ Attending Provider [phone] Ly Kate L Admitting Unavailable Ly, Kate Frias Attending Unavailable Boyd Bustamante Primary Care Unavailable Ly, Kate L Admitting Unavailable Ly, Kate Frias Attending Unavailable Boyd Bustamante Primary Care Unavailable PARAM PADRON Referring Unavailable KIMBER, PARAM Referring Unavailable KIMBER, PARAM Referring Unavailable KIMBER, PARAM Referring Unavailable KIMBER, PARAM Attending Unavailable KIMBER, PARAM Referring Unavailable KIMBER, PARAM Referring Unavailable KIMBER, PARAM Admitting Unavailable KIMBER, PARAM Attending Unavailable KIMBER, PARAM Admitting Unavailable KIMBER, PARAM Attending Unavailable KIMBER, PARAM Referring Unavailable KIMBER, PARAM Referring Unavailable KIMBER, PARAM Referring Unavailable ABDIRIZAKJUS ORELLANA Attending Unavailable KIMBER, PARAM Referring Unavailable KIMBER, PARAM Referring Unavailable KIMBER, PARAM Attending Unavailable ABDIRIZAKJUS DELONG Attending Unavailable KIMBER, PARAM Referring Unavailable KIMBER, PARAM Attending Unavailable ADRIANE, JOVANNY Referring Unavailable ADRIANE, JOVANNY Referring Unavailable KIMBER, PARAM Referring Unavailable Allergies Allergy Classification Reported Allergen(s) Allergy Type Date of Onset Reaction(s) Facility (20 sources) Adhesive Tape; Translations: [Unknown] Propensity to adverse reactions to drug 03-14-20 15 Unknown, [facility] Work Phone: (20 sources) Sulfonamides (Antibiotic); Translations: [SULFA (SULFONAMIDE ANTIBIOTICS)] Propensity to adverse reactions to drug 03-14-20 15 [facility] Work Phone: (3 sources) amoxicillin Drug Allergy 03-14-20 15 [facility] Work Phone: (10 sources) Sulfonamides (Antibiotic) Propensity to adverse reactions to drug 03-14-20 15 [facility] (10 sources) Sulfonamides (Antibiotic) Propensity to adverse reactions Unknown [employer] Other (1 source) Sulfonamides (Antibiotic) Drug allergy (disorder) 05-10-20 19 [facility] Repository (3 sources) Adhesive Tape Drug allergy Unknown [employer] Other (2 sources) Allergies Reconciled Propensity to adverse reactions Unknown [employer] Other (1 source) ALLERGIES NOT ON FILE; Translations: [ALLERGIES NOT ON FILE] Propensity to adverse reactions (disorder) [facility] Repository (7 sources) Adhesive Tape; Translations: [adhesive tape] Allergy to substance 10-01-19 24 [facility] (6 sources) Wound Dressing Adhesive Drug Allergy 03-14-20 15 Itching [facility] (1 source) Sulfonamides (Antibiotic) Drug allergy (disorder) 08-09-19 25 [facility] Repository Medications Current Medications Medication Drug Class(es) [...] DAILY Start: 10-01-2023 take 2 tablets by mo [facility] once daily Start: 11-28-2022 End: 05-16-2024 take [...] Start: 07-09-2023 take 137 ug nasal ro [place] every twelve hours Azelastine 137 mcg (0.1 [...] daily Start: 09-22-2022 take 1 capsule by [facility] every twenty-four hours in the morning venlafaxine XR (Effexor XR) 75 MG 24 hr capsule Take 75 mg by mouth in the morning. 09/22/2022 Active Venlafaxine HCl ER 75 mg TAKE 3 CAPSULES DAILY Active take 1 capsule by [facility] every twenty-four hours Venlafaxine HCl ER 75 [...] 3:03pm Start: 11-14-2022 [facility] twenty-four hours in the morning buPROPion XL (Wellbutrin XL) 150 MG 24 hr tablet Take 150 mg by mouth in the morning. 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 Will attempt to place LV septal lead and see. 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 Unfortunately she did not have locations well thresholds could be good without diaphragmatic stim. This has been a challenge and then subsequent follow-up the numbers are also high. However, hr EF has come to normal with BIOPHYSICS TEACHER. 12/08/23 patient underwent cardioversion on 07/22/2023 and [...] this 02/17/23 HPI: Debra García is a 84 y.o. year old with past medical history of htn, GERD, sleep apnea, mitral valve prolapse, A-fib, c-diff, TIA, HLD, it is noted in her H&P per PCP she has been on a medication for afib but it caused her thyroid issues. She had previous seen a vanstone machine operator and an outlying facility and recently moved here about 2 years ago and has not established with a vanstone machine operator. She was seen by Ranjan SOSA and subsequently started on anticoagulation with Eliqukelly. previously she had afib ablation with [facility] before 2009 had for unclear reasons was not placed on anticoagulation when he saw her. she got admitted to [place] ED on 02/06/2023 following a fall. versus attributed to be a mechanical fall as she tripped on the corner curb. no loss of consciousness. CT of the head was negative for any hemorrhage. she had some lacerations which were sutured. She had a recent echocardiogram done which showed cardiomyopathy with a EF of 35 to 40%. [id number] at least 6 for age, gender, hypertension, [...] Out of Food in the Last Year: N (more content not included)... [facility] NURSNOTEon 08-18-[address] Padron: okay to Discharge patient at 1930 to go home. [facility] MARY RN educated pt on d/c instructions. This included: site care, limited physical activity, resume normal diet, future appointments, medications, and moderate sedation instructions. RN educated pt on when to notify physician and when to go to the hospital. RN provided pt with arm sling and educated pt on importance of not lifting arm above 90 degrees, weight bearing more than 5lbs, and driving for the next 4 weeks. RN encouraged pt to voice any questions or concerns, and answered any questions or concerns if pt verbalized. [facility] MARY CHG wipes and betadine nasal swabs completed. [facility] Orders Onlyon 01-09-2025 Orders Only [id number] Debra García 1940 F Date Provider Department Center 01/09/2025 ISAMAR OZUNA [facility] [place] [facility] Family History Family Status - Relation Status Age at Mother Father [facility] Orders Onlyon 12-15-2024 Orders Only [id number] Debra García 1940 Provider Department [place] 12/15/2024 PARAM STODDARD [facility] [place] [facility] Family History Family Status - Relation Status Age at Mother Father [facility] Office Visiton 12-13-2024 Follow-up visit [id number] Debra García 1940 Date Provider Department Center 12/13/2024 PARAM STODDARD CHARY Albarran Family History Family Status - Relation Status Age at Mother Father Level of Service:94912 [place] OFFICE/OUTPATIENT ESTABLISHED HIGH MDM 40 MIN Normal [facility] Office Visiton 10-25-2024 Follow-up visit [id number] Debra García 1940 F Date Provider Department [place] 10/25/2024 PARAM STODDARD Family History Family Status - Relation Status Age at Mother Father Level of Service:95547 [place] OFFICE/OUTPATIENT ESTABLISHED MOD MDM 30 MIN Normal [facility] Orders Onlyon 10-14-2024 Orders Only [id number] Debra García 1940 F Date Provider Department Center 10/14/2024 PARAM STODDARD [facility] [place] [facility] No family history on file Normal [facility] Ferritinon 08-25-2024 Ferritin [Mass/Vol] 8.2 ng/mL Low 11.0-306.8 [facility] Comment on above: Result Comment: PERF ORMED BY: [place] [address] PATHOLOGIST CLIENT SERVICE CONSULTANT DEEPTI STEPHENSON M.D. Performed By: #### F E and TIBC, TODD #### [address] Ferritin [Mass/volume] in Se rum or PlasmaOrdered By: Kate Quiros on 08-25-2024 Ferritin [Mass/Vol] Ferritin [Mass/volume] in Serum or Plasma Low 11.0-306.8 [facility] Iron [Mass/volume] in Serum or PlasmaOrdered By: Kate Quiros on 08-25-2024 Iron [Mass/Vol] Iron [Mass/volume] in Serum or Plasma Low 50-212 [facility] Iron and TIBC Profileon % Iron Saturation 12.7 % Low 20-50 [facility] Comment on above: Performed By: #### F E and TIBC, TODD #### [facility] [address] [place] [address] Iron [Mass/Vol] 47 ug/dL Low 50-212 [facility] Comment on above: Performed By: #### F E and TIBC, TODD #### [facility] [address] [place] [address] Total Iron Binding Capacity 371 ug/dL Normal 255-450 [facility] Comment on above: Performed By: #### F E and TIBC, TODD #### [address] Transferrin [Mass/Vol] 265 mg/dL Normal 203-362 [facility] Comment on above: Performed By: #### F E and TIBC, TODD #### [facility] [address] Serum or plasma iron binding capacity measurement (mass/volume)Ordered By: Kate Quiros on 08-25-2024 Iron binding capacity [Mass/Vol] Iron binding capacity [Mass/volume] in Serum or Plasma 255-450 [facility] Serum or plasma iron saturat ion measurement (mass fraction)Ordered By: Kate Quiros on 08-25-2024 Iron saturation [Mass fraction] Iron saturation [Mass Fraction] in Serum or Plasma Low 20-50 [facility] Transferrin [Mass/volume] in Serum or PlasmaOrdered By: Kate Quiros on 08-25-2024 Transferrin [Mass/Vol] Transferrin [Mass/volume] in Serum or Plasma 203-362 [facility] Alanine aminotransferase [En zymatic activity/volume] in Serum or PlasmaOrdered By: Kate Quiros on 08-08-2024 ALT [Catalytic activity/Vol] Alanine aminotransferase [Enzymatic activity/volume] in Serum or Plasma 7-52 [facility] Albumin [Mass/volume] in Ser um or Plasma by Bromocresol green (BCG) dye binding methoOrdered By: Kate Quiros on 08-08-2024 Albumin BCG dye [Mass/Vol] Albumin [Mass/volume] in Serum or Plasma by Bromocresol green (BCG) dye binding metho 3.5-5.7 [facility] Alkaline phosphatase [Enzyma tic activity/volume] in Serum or PlasmaOrdered By: Kate Quiros on 08-08-2024 ALP [Catalytic activity/Vol] Alkaline phosphatase [Enzymatic activity/volume] in Serum or Plasma 34-104 [facility] Aspartate aminotransferase [ Enzymatic activity/volume] in Serum or PlasmaOrdered By: Kate Quiros on 08-08-2024 AST [Catalytic activity/Vol] Aspartate aminotransferase [Enzymatic activity/volume] in Serum or Plasma 13-39 [facility] Basophils Auto (Bld) [#/Vol] Ordered By: Kate Quiros on 08-08-2024 Basophils (Bld) [#/Vol] Automated basoph il count 0.0-0.2 [facility] Basophils/100 WBC Auto (Bld) Ordered By: Kate Quiros on 08-08-2024 Basophils/100 WBC (Bld) Automated basophil % . [facility] Bilirubin.total [Mass/volume ] in Serum or PlasmaOrdered By: Kate Quiros on 08-08-2024 Bilirubin [Mass/Vol] Bilirubin.total [Mass/volume] in Serum or Plasma 0.3-1.0 [facility] C reactive protein [Mass/vol ume] in Serum or PlasmaOrdered By: Kate Quiros on 08-08-2024 CRP [Mass/Vol] C reactive protein [Mass/volume] in Serum or Plasma 0.0-0.5 [facility] C-Reactive Proteinon 025 CRP [Mass/Vol] mg/L Normal 0.0-0.[address] [facility] Comment on above: Result Comment: PERF ORMED BY: [facility] [address] [place] [address] PATHOLOGIST CLIENT SERVICE CONSULTANT DEEPTI STEPHENSON M.D. Performed By: #### C BC, CMP, CRP #### [facility] [address] Calcium [Mass/volume] in Ser um or PlasmaOrdered By: Kate Quiros on 08-08-2024 Calcium [Mass/Vol] Calcium [Mass/volume] in Serum or Plasma 8.6-10.3 [facility] Carbon dioxide, total [Moles /volume] in Serum or PlasmaOrdered By: Kate Quiros on 08-08-2024 CO2 [Moles/Vol] Carbon dioxide, total [Moles/volume] in Serum or Plasma High 21.0-31.0 [facility] Chloride [Moles/volume] in S diane or PlasmaOrdered By: Kate Quiros on 08-08-2024 Chloride [Moles/Vol] Chloride [Moles/volume] in Serum or Plasma 98-107 [facility] Complete Blood Count Auto Di ffon 08-08-2024 Basophils (Bld) [#/Vol] 0.0 10*3/uL Normal 0.0-0.2 [facility] Comment on above: Result Comment: PERF ORMED BY: [place] [address] PATHOLOGIST CLIENT SERVICE CONSULTANT DEEPTI STEPHENSON M.D. Performed By: #### C BC, CMP, CRP #### [address] Basophils/100 WBC (Bld) 0.6 % Normal . T [facility] Comment on above: Performed By: #### C BC, CMP, CRP #### [place] [address] [place] Eosinophils (Bld) [#/Vol] 0.2 10*3/uL Normal 0.0-0.45 [facility] Comment on above: Performed By: #### C BC, CMP, CRP #### [place] [address] [place] Eosinophils/100 WBC (Bld) 3.3 % Normal . [facility] Comment on above: Performed By: #### C BC, CMP, CRP #### [address] Erythrocyte distribution width (RBC) [Ratio] 17.3 % High 11.9-15.3 [facility] Comment on above: Performed By: #### C BC, CMP, CRP #### [place] [address] [place] Hematocrit (Bld) [Volume fraction] 32.6 % Low 34.0-46.4 [facility] Comment on above: Performed By: #### C BC, CMP, CRP #### [place] [address] [place] Hemoglobin (Bld) [Mass/Vol] 10.9 g/dL Low 11.8-15.4 [facility] Comment on above: Performed By: #### C BC, CMP, CRP #### [place] [address] [place] Lymphocytes (Bld) [#/Vol] 1.2 10*3/uL Normal 1.00-4.8 [facility] Comment on above: Performed By: #### C BC, CMP, CRP #### [address] Lymphocytes/100 WBC (Bld) 26.3 % Normal . [facility] Comment on above: Performed By: #### C BC, CMP, CRP #### [facility] [address] MCH (RBC) [Entitic mass] 30.8 pg Normal 24.7-34.3 [facility] Comment on above: Performed By: #### C BC, CMP, CRP #### [address] MCV (RBC) [Entitic vol] 91.6 fL Normal 80-100 [facility] Comment on above: Performed By: #### C BC, CMP, CRP #### [address] Mean Corpuscular HGB Conc 33.6 g/dL Normal 32.0-35.0 [facility] Comment on above: Performed By: #### C BC, CMP, CRP #### [place] [address] [place] Monocytes (Bld) [#/Vol] 0.5 10*3/uL Normal 0.0-0.8 [facility] Comment on above: Performed By: #### C BC, CMP, CRP #### [place] [address] [place] Monocytes/100 WBC (Bld) 9.9 % Normal . [facility] Comment on above: Performed By: #### C BC, CMP, CRP #### [place] [address] [place] Neutrophils (Bld) [#/Vol] 2.8 10*3/uL Normal 1.8-7.7 [facility] Comment on above: Performed By: #### C BC, CMP, CRP #### [place] [address] [place] Neutrophils/100 WBC (Bld) 59.9 % Normal . [facility] Comment on above: Performed By: #### C BC, CMP, CRP #### [address] NRBC% 0.1 /100{WBC} Normal 0-0.5 [facility] Comment on above: Performed By: #### C BC, CMP, CRP #### [address] Platelet mean volume (Bld) [Entitic vol] 8.0 fL Normal 6.3-10.7 [facility] Comment on above: Performed By: #### C BC, CMP, CRP #### [address] Platelets (Bld) [#/Vol] 220 10*3/uL Normal 150-450 [facility] Comment on above: Performed By: #### C BC, CMP, CRP #### [address] RBC (Bld) [#/Vol] 3.55 10*6/uL Low 3.60-5.00 [facility] Comment on above: Performed By: #### C BC, CMP, CRP #### [address] WBC (Bld) [#/Vol] 4.6 10*3/uL Normal 3.8-11.6 [facility] Comment on above: Performed By: #### C BC, CMP, CRP #### [address] Comprehensive Metabolic Pane rose 08-08-2024 Albumin [Mass/Vol] 4.1 g/dL Normal 3.5-5.7 [facility] Comment on above: Performed By: #### C BC, CMP, CRP #### [address] Albumin/Globulin [Mass ratio] 2.2 {ratio} Normal [facility] Comment on above: Performed By: #### C BC, CMP, CRP #### [address] ALP [Catalytic activity/Vol] 42 U/L Normal 34-104 [facility] Comment on above: Performed By: #### C BC, CMP, CRP #### [facility] [address] [place] [address] [place] ALT [Catalytic activity/Vol] 7 U/L Normal 7-52 [facility] Comment on above: Performed By: #### C BC, CMP, CRP #### [facility] [address] [place] [address] [place] Anion gap [Moles/Vol] 9.3 mmol/L Normal 6.0-15.0 [facility] Comment on above: Performed By: #### C BC, CMP, CRP #### [facility] [address] AST [Catalytic activity/Vol] 13 U/L Normal 13-39 [facility] Comment on above: Performed By: #### C BC, CMP, CRP #### [facility] [address] [place] [address] [place] Bilirubin [Mass/Vol] 0.5 mg/dL Normal 0.3-1.0 [facility] Comment on above: Performed By: #### C BC, CMP, CRP #### [facility] [address] [place] [address] [place] Calcium [Mass/Vol] 9.6 mg/dL Normal 8.6-10.3 [facility] Comment on above: Performed By: #### C BC, CMP, CRP #### [facility] [address] [place] [address] [place] Chloride [Moles/Vol] 106 mmol/L Normal 98-107 [facility] Comment on above: Performed By: #### C BC, CMP, CRP #### [facility] [address] [place] [id number] [place] CO2 [Moles/Vol] 32.2 mmol/L High 21.0-31.0 [facility] Comment on above: Performed By: #### C BC, CMP, CRP #### [facility] [address] [place] [id number] [place] Creatinine [Mass/Vol] 1.00 mg/dL Normal 0.60-1.20 [facility] Comment on above: Performed By: #### C BC, CMP, CRP #### [address] Estimated GFR 55.898 mL/Min Normal [facility] Comment on above: Performed By: #### C BC, CMP, CRP #### [address] Globulin (S) [Mass/Vol] 1.9 g/dL Normal T [facility] Comment on above: Performed By: #### C BC, CMP, CRP #### [address] Glucose [Mass/Vol] 93 mg/dL Normal 70-100 [facility] Comment on above: Result Comment: [place] Glucose Reference Range is dependent on time and content of last meal. Glucose of more than 200 mg/dL in a nonstressed, ambulatory subject supports the diagnosis of Diabetes Mellitus. ADA recommended reference range Performed By: #### C BC, CMP, CRP #### [address] Potassium [Moles/Vol] 4.5 mmol/L Normal 3.5-5.1 [facility] Comment on above: Performed By: #### C BC, CMP, CRP #### [address] Protein [Mass/Vol] 6.0 g/dL Low 6.4-8.9 [facility] Comment on above: Performed By: #### C BC, CMP, CRP #### [address] Sodium [Moles/Vol] 143 mmol/L Normal 136-145 [facility] Comment on above: Performed By: #### C BC, CMP, CRP #### [address] Urea nitrogen [Mass/Vol] 20 mg/dL Normal 7-25 [facility] Comment on above: Performed By: #### C BC, CMP, CRP #### [address] [place] [address] [facility] Creatinine [Mass/volume] in Serum or PlasmaOrdered By: Kate Quiros on 08-08-2024 Creatinine [Mass/Vol] Creatinine [Mass/volume] in Serum or Plasma 0.60-1.20 [facility] Eosinophils Auto (Bld) [#/Vo l]Ordered By: Kate Quiros on 08-08-2024 Eosinophils (Bld) [#/Vol] Automated eosinophil count 0.0-0.45 [facility] Eosinophils/100 WBC Auto (Bl d)Ordered By: Kate Quiros on 08-08-2024 Eosinophils/100 WBC (Bld) Automated eosinophil % . [facility] Erythrocyte distribution wid th Auto (RBC) [Ratio]Ordered By: Kate Quiros on 08-08-2024 Erythrocyte distribution width (RBC) [Ratio] Erythrocyte distribution width [Ratio] by Automated count High 11.9-15.3 [facility] Globulin Calc (S) [Mass/Vol] Ordered By: Kate Quiros on 08-08-2024 Globulin (S) [Mass/Vol] Serum globulin measurement by calculation (mass/volume) [facility] Glucose [Mass/volume] in Ser um or PlasmaOrdered By: Kate Quiros on 08-08-2024 Glucose [Mass/Vol] Glucose [Mass/volume] in Serum or Plasma 70-100 [facility] Comment on above: ADA recommended refe rence rangeRandom Glucose Reference Range is dependent on time and content of last meal. Glucose of more than 200 mg/dL in a nonstressed, ambulatory subject supports the diagnosis of Diabetes Mellitus. Hematocrit Auto (Bld) [Volum e fraction]Ordered By: Kate Quiros on 08-08-2024 Hematocrit (Bld) [Volume fraction] Hematocrit [Volume Fraction] of Blood by Automated count Low 34.0-46.4 [facility] Hemoglobin [Mass/volume] in BloodOrdered By: Kate Quiros on 08-08-2024 Hemoglobin (Bld) [Mass/Vol] Hemoglobin [Mass/volume] in Blood Low 11.8-15.4 [facility] Leukocytes [#/volume] correc anila for nucleated erythrocytes in Blood by Automated counOrdered By: Kate Quiros on 08-08-2024 WBC corrected for nucl RBC Auto (Bld) [#/Vol] Leukocytes [#/volume] corrected for nucleated erythrocytes in Blood by Automated coun 3.8-11.6 [facility] Lymphocytes Auto (Bld) [#/Vo l]Ordered By: Kate Ly on 08-08-2024 Lymphocytes (Bld) [#/Vol] Lymphocytes [#/volume] in Blood by Automated count 1.00-4.8 [facility] Lymphocytes/100 WBC Auto (Bl d)Ordered By: Kate Ly on 08-08-2024 Lymphocytes/100 WBC (Bld) Lymphocytes/100 leukocytes in Blood by Automated count . [facility] MCH Auto (RBC) [Entitic mass ]Ordered By: Kate Ly on 08-08-2024 MCH (RBC) [Entitic mass] MCH [Entitic mass] by Automated count 24.7-34.3 [facility] MCHC Auto (RBC) [Mass/Vol]Or dered By: Kate Ly on 08-08-2024 MCHC (RBC) [Mass/Vol] MCHC [Mass/volume] by Automated count 32.0-35.0 [facility] MCV Auto (RBC) [Entitic vol] Ordered By: Kate Ly on 08-08-2024 MCV (RBC) [Entitic vol] MCV [Entitic vol ume] by Automated count 80-100 [facility] Monocytes Auto (Bld) [#/Vol] Ordered By: Kate Ly on 08-08-2024 Monocytes (Bld) [#/Vol] Automated blood monocyte count 0.0-0.8 [facility] Monocytes/100 WBC Auto (Bld) Ordered By: Kate Ly on 08-08-2024 Monocytes/100 WBC (Bld) Automated monocyte % . [facility] Neutrophils Auto (Bld) [#/Vo l]Ordered By: Kate Ly on 08-08-2024 Neutrophils (Bld) [#/Vol] Neutrophils [#/volume] in Blood by Automated count 1.8-7.7 [facility] Neutrophils/100 WBC Auto (Bl d)Ordered By: Kate Ly on 08-08-2024 Neutrophils/100 WBC (Bld) Automated neutrophil % . [facility] No Panel InformationOrdered By: Kate Quiros on 08-08-2024 Estimated GFR (CKD-EPI) 55.898 mL/Min [facility] Creatinine Clearance (Chem N/A [facility] Nucleated erythrocytes [Pres ence] in Blood by Automated countOrdered By: Kate Quiros on 08-08-2024 Nucleated RBC Auto Ql (Bld) Nucleated erythrocytes [Presence] in Blood by Automated count 0-0.5 [facility] Platelet mean volume Auto (B ld) [Entitic vol]Ordered By: Kate Ly on 08-08-2024 Platelet mean volume (Bld) [Entitic vol] Platelet mean volume [Entitic volume] in Blood by Automated count 6.3-10.7 [facility] Platelets Auto (Bld) [#/Vol] Ordered By: Kate Quiros on 08-08-2024 Platelets (Bld) [#/Vol] Platelets [#/vol ume] in Blood by Automated count 150-450 [facility] Potassium [Moles/volume] in Serum or PlasmaOrdered By: Kate Quiros on 08-08-2024 Potassium [Moles/Vol] Potassium [Moles/volume] in Serum or Plasma 3.5-5.1 [facility] Protein [Mass/volume] in Ser um or PlasmaOrdered By: Kate Quiros on 08-08-2024 Protein [Mass/Vol] Protein [Mass/volume] in Serum or Plasma Low 6.4-8.9 [facility] RBC Auto (Bld) [#/Vol]Ordere d By: Kate Quiros on 08-08-2024 RBC (Bld) [#/Vol] Erythrocytes [#/volume] in Blood by Automated count Low 3.60-5.00 [facility] Serum or plasma albumin/glob ulin mass ratioOrdered By: Kate Ly on 08-08-2024 Albumin/Globulin [Mass ratio] Serum or plasma albumin/globulin mass ratio [facility] Serum or plasma anion gap de terminationOrdered By: Kate Quiros on 08-08-2024 Anion gap [Moles/Vol] Serum or plasma anion gap determination 6.0-15.0 [facility] Sodium [Moles/volume] in Ser um or PlasmaOrdered By: Kate Quiros on 08-08-2024 Sodium [Moles/Vol] Sodium [Moles/volume] in Serum or Plasma 136-145 [facility] Urea nitrogen [Mass/volume] in Serum or PlasmaOrdered By: Kate Quiros on 08-08-2024 Urea nitrogen [Mass/Vol] Urea nitrogen [Mass/volume] in Serum or Plasma 7-25 [facility] WBC Auto (Bld) [#/Vol]Ordere d By: Kate Quiros on 08-08-2024 WBC (Bld) [#/Vol] Leukocytes [#/volume] in Blood by Automated count 3.8-11.6 [facility] Optical coherence tomography study reporton 07-18-2024 [employer] Right Eye Quality was good. Scan locations [...] detachment (RPED) Opposite eye with dry amd [facility] Radiology Study [facility] (narrative[facility] Regarding note from PCP on 04/14/2024: Jus Wheeler, IAN Herrera MA Please have her cut amlodipine in half to 5mg daily. Thanks. Spoke with patient and she will make the medication decrease. I will send her in 2.5mg tablets. She does not have a BP cuff at home so I will also send her an RX for that. She verbalized understanding and will let us know of any abnormal BP trends. Normal [facility] Office Visiton 03-15-2024 Follow-up visit [id number] Debra García 1940 F Date Provider Department Center 03/15/2024 [facility] No family history on file Level of Service:60639 [place] OFFICE/OUTPATIENT ESTABLISHED LOW MDM 20 MIN Normal [facility] 36on 02-26-2024 36 Regarding lab results from 02/24/2024: IAN Guzman MA Please let her know her labs show stable kidney function. Can continue lasix daily. Thanks LM on 02/25. Normal [facility] Estimated glomerular filtrat ion rate (GFR) non- Americanon 02-24-2024 GFR/1.73 sq M.predicted among non-blacks MDRD (S/P/Bld) [Vol rate/Area] Estimated glomerular filtration rate (GFR) non- Low >=60 mL/min/1.73 m 2 [facility] Laboratory - Chemistry and C hemistry - challengeon 02-24-2024 Calcium [Mass/Vol] 9.5 mg/dL 8.5-10.1 [facility] Chloride [Moles/Vol] 104 mmol/L 98-107 [facility] CO2 [Moles/Vol] 31.9 mmol/L 21.0-32.0 [facility] Creatinine [Mass/Vol] 1.26 mg/dL High 0.55-1.02 [facility] GFR/1.73 sq M.predicted MDRD (S/P/Bld) [Vol rate/Area] 49 mL/min/{1.73_m2} Low >=60 mL/min/1.73 m 2 [facility] Glucose [Mass/Vol] 116 mg/dL High 74-106 [facility] Potassium [Moles/Vol] 4.1 mmol/L 3.5-5.1 [facility] Sodium [Moles/Vol] 142 mmol/L 136-145 [facility] Urea nitrogen [Mass/Vol] 15.0 mg/dL 7.0-18.0 [facility] Urea nitrogen/Creatinine [Mass ratio] 11.9 mg/mg [facility] Serum or plasma anion gap de terminationon 02-24-2024 Anion gap [Moles/Vol] Serum or plasma anion gap determination [facility] Office Visiton 02-23-2024 Follow-up visit [id number] Debra García 1940 F Date Provider Department Center 02/23/2024 [facility] No family history on file Level of Service:02703 [place] OFFICE/OUTPATIENT ESTABLISHED MOD [facility] 30 MIN [facility] 36on 02-03-2024 36 LM on patient's VM for her to return my call. [facility] 36on 01-27-2024 36 I don't see any Evoke transmissions for her. Does she have a home monitor set up? If not, send her the info to call them to set up if she wants home monitoring. Or she could have her device interrogated in the office sooner than the . [facility] 36 Patient called to make you aware that the past few days she's been having left-sided heart pounding . Patient denies chest pain and SOB. Heart pounding is happening at night when she is lying down. Asked her to come into the office for ECG and she said I just had one . Any way to check her device on Evoke? [facility] Telephoneon 01-27-2024 Telephone [id number] JenniferDebra Mcmahon 1940 F Date Provider Department [place] 01/27/2024 [facility] No family history on file [facility] Office Visiton 01-20-2024 Follow-up visit [id number] JenniferDebra Mcmahon 1940 F Date Provider Department [place] 01/20/2024 J[facility] No family history on file Level of Service:[id number] [place] OFFICE/OUTPATIENT ESTABLISHED MOD [facility] 30 MIN [facility] HPon 01-13-2024 [facility] Electrophysiology Consult Note Reason for [...] thyroid issues. She had previous seen a [facility] machine operator and an outlying facility and recently moved here about 2 years ago and has not established with a [facility] machine operator. She was seen by Ranjan SOSA and subsequently started on anticoagulation with Eliquis. previously she had afib ablation with [facility] before 2009 had for unclear reasons was not placed on anticoagulation when he saw her. she got admitted to [place] ED on 02/06/2023 following a fall. versus attributed to be a mechanical fall as she tripped on the corner curb. no loss of consciousness. CT of the head was negative for any hemorrhage. she had some lacerations which were sutured. She had a recent echocardiogram done which showed cardiomyopathy with a EF of 35 to 40%. [id number] at least 6 for age, gender, hypertension, [...] 20 mg ta (more content not included)... [facility] NURSNOTEon 01-13-2024 NURSNOTE RN educated pt on d/c instructions. RN encouraged pt to voice any questions or concerns. Pt verbalizes no questions or concerns at this time. Pt was wheeled off of unit with all of belongings. [facility] NURSNOTE CHG wipes and betadine nasal swabs completed. [facility] Orders Onlyon 01-13-2024 Orders Only [id number] Debra García 1940 F Date Provider Department Center 01/13/2024 FLAQUITA NIETO [facility] No family history on file [facility] Laboratory - Chemistry and C hemistry - challengeon 09-29-2023 Cobalamin (Vitamin B12) [Mass/Vol] 1712.0 pg/mL 193.0-986.0 [facility] TSH Qn 0.490 m[IU]/L 0.358-3.740 [facility] No Panel Informationon 09-28 25-Hydroxy Vitamin D Total 54.7 ng/mL [facility] Comment on above: <20 ng/mL Vit D defi cient20-<30 ng/mL Vit D [id number] ng/mL Vit D sufficient>100 ng/mL Potential Toxicity Basophils Auto (Bld) [#/Vol] on 07-17-2023 Basophils (Bld) [#/Vol] 0.0 10 3/uL 0.0-0.1 [facility] Basophils/100 WBC Auto (Bld) on 07-17-2023 Basophils/100 WBC (Bld) 1.0 % 0.2-2.0 [facility] Eosinophils/100 WBC Auto (Bl d)on 07-17-2023 Eosinophils/100 WBC (Bld) 1.2 % 0.9-7.0 [facility] Erythrocyte distribution wid th Auto (RBC) [Ratio]on 07-17-2023 Erythrocyte distribution width (RBC) [Ratio] 15.0 % 11.0-15.0 [facility] Estimated glomerular filtrat ion rate (GFR) non- Americanon 07-17-2023 GFR/1.73 sq M.predicted among non-blacks MDRD (S/P/Bld) [Vol rate/Area] 51 mL/min/{1.73_m2} >=60 [facility] Hematocrit Auto (Bld) [Volum e fraction]on 07-17-2023 Hematocrit (Bld) [Volume fraction] 39.9 % 36.0-48.0 [facility] Hemoglobin [Mass/volume] in Bloodon 07-17-2023 Hemoglobin (Bld) [Mass/Vol] 12.8 g/dL 12.0-16.0 [facility] Laboratory - Chemistry and C hemistry - challengeon 07-17-2023 Calcium [Mass/Vol] 9.0 mg/dL 8.5-10.1 [facility] Chloride [Moles/Vol] 105 mmol/L 98-107 [facility] CO2 [Moles/Vol] 30.0 mmol/L 21.0-32.0 [facility] Creatinine [Mass/Vol] 1.03 mg/dL 0.55-1.02 [facility] GFR/1.73 sq M.predicted MDRD (S/P/Bld) [Vol rate/Area] mL/min/{1.73_m2} >=60 [facility] Glucose [Mass/Vol] 117 mg/dL 74-106 [facility] Potassium [Moles/Vol] 4.6 mmol/L 3.5-5.1 [facility] Sodium [Moles/Vol] 142 mmol/L 136-145 [facility] Urea nitrogen [Mass/Vol] 16.0 mg/dL 7.0-18.0 [facility] Urea nitrogen/Creatinine [Mass ratio] 15.5 mg/mg [facility] - Hematology and Cell countson 07-17-2023 Immature granulocytes/100 WBC (Bld) 0.2 % 0.0-0.5 [facility] Leukocytes [#/volume] correc anila for nucleated erythrocytes in Blood by Automated counon 07-17-2023 WBC corrected for nucl RBC Auto (Bld) [#/Vol] 4.2 10 3/uL 4.0-11.0 [facility] Lymphocytes Auto (Bld) [#/Vo l]on 07-17-2023 Lymphocytes (Bld) [#/Vol] 0.7 10 3/uL 1.2-3.8 [facility] Lymphocytes/100 WBC Auto (Bl d)on 07-17-2023 Lymphocytes/100 WBC (Bld) 17.1 % 20.5-60.0 [facility] MCH Auto (RBC) [Entitic mass ]on 07-17-2023 MCH (RBC) [Entitic mass] 31.5 pg 26.7-34.0 [facility] MCHC Auto (RBC) [Mass/Vol]on 07-17-2023 MCHC (RBC) [Mass/Vol] 32.1 g/dL 29.9-35.2 [facility] MCV Auto (RBC) [Entitic vol] on 07-17-2023 MCV (RBC) [Entitic vol] 98.3 fL 81.0-99.0 [facility] Monocytes Auto (Bld) [#/Vol] on 07-17-2023 Monocytes (Bld) [#/Vol] 0.4 10 3/uL 0.3-0.8 [facility] Monocytes/100 WBC Auto (Bld) on 07-17-2023 Monocytes/100 WBC (Bld) 9.0 % 1.7-12.0 [facility] Neutrophils Auto (Bld) [#/Vo l]on 07-17-2023 Neutrophils (Bld) [#/Vol] 3.0 10 3/uL 1.4-6.5 [facility] Neutrophils/100 WBC Auto (Bl d)on 07-17-2023 Neutrophils/100 WBC (Bld) 71.5 % 43.0-75.0 [facility] No Panel Informationon 07-17 Eosinophils # (Auto) 0.1 10 3/uL 0.0-0.7 [facility] Immature Granulocyte # (Auto) 0.01 10 3/uL 0.00-0.03 [facility] Platelet mean volume Auto (B ld) [Entitic vol]on 07-17-2023 Platelet mean volume (Bld) [Entitic vol] 9.9 fL 9.5-13.5 [facility] Platelets Auto (Bld) [#/Vol] on 07-17-2023 Platelets (Bld) [#/Vol] 188 10 3/uL 150-450 [facility] RBC Auto (Bld) [#/Vol]on RBC (Bld) [#/Vol] 4.06 10 6/uL 4.20-5.40 [facility] Serum or plasma anion gap de terminationon 07-17-2023 Anion gap [Moles/Vol] 11.6 mmol/L [facility] BNPon 07-24-2022 Natriuretic peptide B (Bld) [Mass/Vol] 1076.0 pg/mL Normal <=1,800.0 [facility] Comment on above: Performed By: #### L IPID, TSH, BNP, CMP #### [facility] [address] [place] [address] Dr. Ana Fish CBC AUTO DIFFon 07-24-2022 BASO # 0.0 103/ul Normal 0.0-0.1 [facility] Comment on above: Performed By: #### C BC #### [facility] [address] [place] [address] Dr. Ana Fish Basophils/100 WBC (Bld) 0.4 % Normal 0.2-2.0 [facility] Comment on above: Performed By: #### C BC #### [facility] [address] [address] [address] Ana Fish EO # 0.1 103/ul Normal 0.0-0.7 [facility] Comment on above: Performed By: #### C BC #### [facility] [address] [place] [address] Dr. Ana Fish Eosinophils/100 WBC (Bld) 1.3 % Normal 0.9-7.0 [facility] Comment on above: Performed By: #### C BC #### [facility] [address] [place] [address] Dr. Ana Fish Erythrocyte distribution width (RBC) [Ratio] 15.5 % Critically high 11.0-15.0 [facility] Comment on above: Performed By: #### C BC #### [facility] [address] [place] [address] Dr. Ana Fish Hematocrit (Bld) [Volume fraction] 37.0 % Normal 36.0-48.0 [facility] Comment on above: Performed By: #### C BC #### [facility] [address] [place] [address] Dr. Ana Fish Hemoglobin (Bld) [Mass/Vol] 12.7 g/dL Normal 12.0-16.0 [facility] Comment on above: Performed By: #### C BC #### [facility] [address] [place] [address] Dr. Ana Fish IG # 0.03 10e3/ul Normal 0.00-0.03 [facility] Comment on above: Performed By: #### C BC #### [facility] [address] [place] [address] Dr. Ana Fish IG % 0.4 % Normal 0.0-0.5 [facility] Comment on above: Performed By: #### C BC #### [facility] [address] [place] [address] Dr. Ana Fish LYMPH # 1.6 103/ul Normal 1.2-3.8 [facility] Comment on above: Performed By: #### C BC #### [facility] [address] [place] [address] Dr. Ana Fish Lymphocytes/100 WBC (Bld) 19.0 % Critically low 20.5-60.0 [facility] Comment on above: Performed By: #### C BC #### [facility] [address] [place] [address] Dr. Ana Fish MANUAL DIFF REQ NO Normal [facility] Comment on above: Performed By: #### C BC #### [facility] [address] [place] [address] Dr. Ana Fish MCH (RBC) [Entitic mass] 32.3 pg Normal 26.7-34.0 [facility] Comment on above: Performed By: #### C BC #### [facility] [address] [place] [address] Dr. Ana Fish MCHC (RBC) [Mass/Vol] 34.3 g/dL Normal 29.9-35.2 [facility] Comment on above: Performed By: #### C BC #### [facility] [address] [place] [address] Dr. Ana Fish MCV (RBC) [Entitic vol] 94.1 fL Normal 81.0-99.0 [facility] Comment on above: Performed By: #### C BC #### [facility] [address] [place] [address] Dr. Ana Fish MONO # 0.8 103/ul Normal 0.3-0.8 [facility] Comment on above: Performed By: #### C BC #### [facility] [address] [place] [address] Dr. Ana Fish Monocytes/100 WBC (Bld) 9.7 % Normal 1.7-12.0 [facility] Comment on above: Performed By: #### C BC #### [facility] [address] [place] [address] Dr. Ana Fish NEUT # 5.7 103/ul Normal 1.4-6.5 [facility] Comment on above: Performed By: #### C BC #### [facility] [address] [place] [address] Dr. Ana Fish Neutrophils/100 WBC (Bld) 69.2 % Normal 43.0-75.0 [facility] Comment on above: Performed By: #### C BC #### [facility] [address] [place] [address] Dr. Ana Fish Platelet mean volume (Bld) [Entitic vol] 9.9 fL Normal 9.5-13.5 [facility] Comment on above: Performed By: #### C BC #### [facility] [address] [address] [address] Ana Fish PLT 273 103/ul Normal 150-450 [facility] Comment on above: Performed By: #### C BC #### [facility] [address] [address] [address] Ana Fish RBC 3.93 106/ul Critically low 4.20-5.40 [facility] Comment on above: Performed By: #### C BC #### [facility] [address] [address] [address] Ana Fish WBC 8.2 103/ul Normal 4.0-11.0 [facility] Comment on above: Performed By: #### C BC #### [facility] [address] [place] [address] Dr. nAa Fish FREE T4on 07-24-2022 Free T4 [Mass/Vol] 1.34 ng/dL Normal 0.76-1.46 [facility] Comment on above: Performed By: #### F T4 #### [facility] [address] [place] [address] Dr. Ana Fish LIPID PROFILEon 07-24-2022 CHOL-HDL RATIO NORM SEE BELOW Normal [facility] Comment on above: Result Comment: 3.3 - 4.4 LOW RISK 4.4 - 7.1 AVERAGE RISK 7.1 - 11.0 MODERATE RISK >11.0 HIGH RISK Performed By: #### L IPID, TSH, BNP, CMP #### [facility] [address] [place] [address] Dr. Ana Fish Cholesterol [Mass/Vol] 199 mg/dL Normal <=200 [facility] Comment on above: Performed By: #### L IPID, TSH, BNP, CMP #### [facility] [address] [place] [address] Dr. Ana Fish Cholesterol in HDL [Mass/Vol] 88 mg/dL Critically high 40-60 [facility] Comment on above: Performed By: #### L IPID, TSH, BNP, CMP #### [facility] [address] [address] [address] Ana Fish Cholesterol in LDL [Mass/Vol] 97.6 mg/dL Normal [facility] Comment on above: Performed By: #### L IPID, TSH, BNP, CMP #### [facility] [address] [address] [address] Ana Fish Cholesterol.total/Teresa sterol in HDL [Mass ratio] 2.3 {ratio} Normal [facility] Comment on above: Performed By: #### L IPID, TSH, BNP, CMP #### [facility] [address] [address] [address] Ana Fish HDL NORMAL > or = 60 mg/dl - LOW CARDIOVASCULAR RISK <40 mg/dl - HIGH CARDIOVASCULAR RISK Normal [facility] Comment on above: Performed By: #### L IPID, TSH, BNP, CMP #### [facility] [address] [place] [address] Dr. Ana Fish LDL CALC NORMAL SEE BELOW Normal [facility] Comment on above: Result Comment: <100 mg/dl OPTIMAL 100 - 129 mg/dl NEAR OR ABOVE OPTIMAL 130 - 159 mg/dl BORDERLINE HIGH 160 - 189 mg/dl HIGH >190 mg/dl VERY HIGH Performed By: #### L IPID, TSH, BNP, CMP #### [facility] [address] [place] [address] Dr. Ana Fish Triglyceride [Mass/Vol] 67 mg/dL Normal <=150 T [facility] Comment on above: Performed By: #### L IPID, TSH, BNP, CMP #### [facility] [address] [place] [address] Dr. Ana Fish VLDL CALC 13.4 mg/dL Normal [facility] Comment on above: Performed By: #### L IPID, TSH, BNP, CMP #### [facility] [address] [place] [address] Dr. Ana Fish PROF 14(COMP METB)on 023 Albumin [Mass/Vol] 3.8 g/dL Normal 3.4-5.0 [facility] Comment on above: Performed By: #### L IPID, TSH, BNP, CMP #### [facility] [address] [place] [address] Dr. Ana Fish Albumin/Globulin [Mass ratio] 1.3 {ratio} Normal [facility] Comment on above: Performed By: #### L IPID, TSH, BNP, CMP #### [facility] [address] [place] [address] Dr. Ana Fish ALP [Catalytic activity/Vol] 81 U/L Normal 46-116 [facility] Comment on above: Performed By: #### L IPID, TSH, BNP, CMP #### [facility] [address] [place] [address] Dr. Ana Fish ALT [Catalytic activity/Vol] 16 U/L Normal 14-59 [facility] Comment on above: Performed By: #### L IPID, TSH, BNP, CMP #### [facility] [address] [place] [address] Dr. Ana Fish Anion gap [Moles/Vol] 10.3 mmol/L Normal [facility] Comment on above: Performed By: #### L IPID, TSH, BNP, CMP #### [facility] [address] [place] [address] Dr. Ana Fish AST [Catalytic activity/Vol] 18 U/L Normal 15-37 [facility] Comment on above: Performed By: #### L IPID, TSH, BNP, CMP #### [facility] [address] [place] [address] Dr. Ana Fish Bilirubin [Mass/Vol] 0.8 mg/dL Normal 0.2-1.0 [facility] Comment on above: Performed By: #### L IPID, TSH, BNP, CMP #### [facility] [address] [place] [address] Dr. Ana Fish Calcium [Mass/Vol] 9.3 mg/dL Normal 8.5-10.1 [facility] Comment on above: Performed By: #### L IPID, TSH, BNP, CMP #### [facility] [address] [place] [address] Dr. Ana Fish Chloride [Moles/Vol] 103 mmol/L Normal 98-107 [facility] Comment on above: Performed By: #### L IPID, TSH, BNP, CMP #### [facility] [address] [address] [address] Ana Fish CO2 [Moles/Vol] 32.1 mmol/L Critically high 21.0-32.0 [facility] Comment on above: Performed By: #### L IPID, TSH, BNP, CMP #### [facility] [address] [address] [address] Ana Fish Creatinine [Mass/Vol] 0.85 mg/dL Normal 0.55-1.02 [facility] Comment on above: Performed By: #### L IPID, TSH, BNP, CMP #### [facility] [address] [address] [address] Ana Fish EGFR-AF [facility] LUCIAN >60 Normal >=60 [facility] Comment on above: Performed By: #### L IPID, TSH, BNP, CMP #### [facility] [address] [address] [address] Ana Fish EGFR-NON AF [facility] LUCIAN >60 Normal >=60 [facility] Comment on above: Performed By: #### L IPID, TSH, BNP, CMP #### [facility] [address] [address] [address] Ana Fish Globulin (S) [Mass/Vol] 3.0 g/dL Normal T [facility] Comment on above: Performed By: #### L IPID, TSH, BNP, CMP #### [facility] [address] [address] [address] Ana Fish Glucose [Mass/Vol] 101 mg/dL Normal 74-106 [facility] Comment on above: Performed By: #### L IPID, TSH, BNP, CMP #### [facility] [address] [address] [address] Ana Fish Potassium [Moles/Vol] 3.4 mmol/L Critically low 3.5-5.1 [facility] Comment on above: Performed By: #### L IPID, TSH, BNP, CMP #### [facility] [address] [place] [address] Dr. Ana Fish Protein [Mass/Vol] 6.8 g/dL Normal 6.4-8.2 [facility] Comment on above: Performed By: #### L IPID, TSH, BNP, CMP #### [facility] [address] [place] [address] Dr. Ana Fish Sodium [Moles/Vol] 142 mmol/L Normal 136-145 [facility] Comment on above: Performed By: #### L IPID, TSH, BNP, CMP #### [facility] [address] [place] [address] Dr. Ana Fish Urea nitrogen [Mass/Vol] 12.0 mg/dL Normal 7.0-18.0 [facility] Comment on above: Performed By: #### L IPID, TSH, BNP, CMP #### [facility] [address] [place] [address] Dr. Ana Fish Urea nitrogen/Creatinine [Mass ratio] 14.1 mg/mg Normal [facility] Comment on above: Performed By: #### L IPID, TSH, BNP, CMP #### [facility] [address] [place] [address] Dr. Ana Fish TSHon 07-24-2022 TSH 2.122 uIU/mL Normal 0.358-3.740 [facility] Comment on above: Performed By: #### L IPID, TSH, BNP, CMP #### [facility] [address] [place] [address] Dr. Ana Fish XR CHEST AP/PA AND LATon XR CHEST AP/PA AND LAT EXAMINATION: TWO VIEW XR CHEST AP/PA AND LAT, 02/03/2020 COMPARISON: Chest, 01/06/2020. 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 No acute cardiopulmonary disease. 2. Normal heart size. 3. 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 Moderate compression deformity of T12 vertebral body. This is age indeterminate. Recommend further evaluation with cross-sectional imaging. 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 [facility] Interface, Rad In Serafin Speechq - 01/06/2020 7:58 PM EDT EXAMINATION: XR CHEST AP/PA AND LAT 01/06/2020 9:41 am HISTORY: ORDERING SYSTEM PROVIDED HISTORY: Amiodarone surveillance, TECHNOLOGIST PROVIDED HISTORY: Illness/Other Reason for exam: Amiodarone surveillance Cancer History: n Surgery, RadiationHistory: n Encounter Type: Initial Additional signs and symptoms: ORDERING SYSTEM PROVIDED DIAGNOSIS CODES: Z79.899 MCFP current use of 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 drug I48.0 PAF [...] indeterminate. Recommend further evaluation with cross-sectional imaging. SA/karlk Workstation ID: [id number] [facility] XR CHEST AP/PA AND LAT EXAMINATION: XR CHEST AP/PA AND LAT 01/06/2020 9:41 am HISTORY: ORDERING SYSTEM PROVIDED HISTORY: Amiodarone surveillance, TECHNOLOGIST PROVIDED HISTORY: Illness/Other Reason for exam: Amiodarone surveillance Cancer History: n Surgery, RadiationHistory: n Encounter Type: Initial Additional signs and symptoms: ORDERING SYSTEM PROVIDED DIAGNOSIS CODES: Z79.899 MCFP current use of 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 drug I48.0 PAF [...] indeterminate. Recommend further evaluation with cross-sectional imaging. [email or web address] Workstation ID: [id number] Dictated by: ARNOLDO HOUGH on ThuJan 06, 2020 4:42:45 PM EDT Transcribed by: RIAZ MURRAY on ThuJan 06, 2020 5:12:15 PM EDT Finalized by: ARNOLDO HOUGH on ThuJan 06, 2020 7:55:51 PM EDT Normal [facility] Comment on above: Order Comment: Injur y/Trauma or Illness?:Illness/Other How long have you had these symptoms (acute/chronic)?:Unknown Reason for exam?:Amiodarone surveillance History of cancer?:n Surgeries, chemotherapy, or radiation?:n Type of Exam?:Initial Additional signs and symptoms?: Basic Metabolic Panelon 10-3 Anion gap [Moles/Vol] 9.00 mmol/L Normal 8.00-16.00 [facility] Comment on above: Order Comment: Fasti ng: Unknown Performed By: #### C 80, C400, C408, C141, C48, C45, C119, C120 #### [facility] [address] [facility] [address] [place] [facility] [address] [place] [address] B/C Ratio 15.0 Ratio Normal [facility] Comment on above: Order Comment: Fasti ng: Unknown Performed By: #### C 80, C400, C408, C141, C48, C45, C119, C120 #### [facility] [address] [facility] [address] [place] [facility] [address] [place] [address] Calcium [Mass/Vol] 10.2 mg/dL Normal 8.5-10.5 [facility] Comment on above: Order Comment: Fasti ng: Unknown Performed By: #### C 80, C400, C408, C141, C48, C45, C119, C120 #### [facility] [facility] [place] [facility] [place] [address] Chloride [Moles/Vol] 101 mmol/L Normal 98-107 [facility] Comment on above: Order Comment: Fasti ng: Unknown Performed By: #### C 80, C400, C408, C141, C48, C45, C119, C120 #### [facility] [address] [place] [address] [place] [address] CO2 [Moles/Vol] 30.0 mmol/L Normal 22.0-30.0 [facility] Comment on above: Order Comment: Fasti ng: Unknown Performed By: #### C 80, C400, C408, C141, C48, C45, C119, C120 #### [facility] [address] [place] [address] [place] [address] Creatinine [Mass/Vol] 1.0 mg/dL Normal 0.1-1.2 [facility] Comment on above: Order Comment: Fasti ng: Unknown Performed By: #### C 80, C400, C408, C141, C48, C45, C119, C120 #### [facility] [address] [place] [address] [address] [place] [address] GFR/1.73 sq M.predicted MDRD (S/P/Bld) [Vol rate/Area] 54 mL/min per 1.73 Low >60 [facility] Comment on above: Order Comment: Fasti ng: Unknown Result Comment: The GFR estimate is not adjusted for race. If the patient's race is -[place], the GFR estimate must be multiplied by a factor of 1.21. Performed By: #### C 80, C400, C408, C141, C48, C45, C119, C120 #### [facility] [facility] [place] [facility] [address] [place] [address] Glucose [Mass/Vol] 91 mg/dL Normal 74-100 [facility] Comment on above: Order Comment: Fasti ng: Unknown Performed By: #### C 80, C400, C408, C141, C48, C45, C119, C120 #### [facility] [address] [place] [address] [place] [address] Potassium [Moles/Vol] 3.9 mmol/L Normal 3.5-5.3 [facility] Comment on above: Order Comment: Fasti ng: Unknown Performed By: #### C 80, C400, C408, C141, C48, C45, C119, C120 #### [facility] [address] [place] [address] [place] [address] Sodium [Moles/Vol] 140 mmol/L Normal 135-145 [facility] Comment on above: Order Comment: Fasti ng: Unknown Performed By: #### C 80, C400, C408, C141, C48, C45, C119, C120 #### [facility] [address] [place] [address] [address] [place] [address] Urea nitrogen [Mass/Vol] 15 mg/dL Normal 6-22 [facility] Comment on above: Order Comment: Fasti ng: Unknown Performed By: #### C 80, C400, C408, C141, C48, C45, C119, C120 #### [facility] [address] [place] [address] [address] [place] [address] Free T4on 03-24-2019 Free T4 [Mass/Vol] 1.9 ng/dL High 0.7-1.8 [facility] Comment on above: Order Comment: Fasti ng: Unknown Performed By: #### C 80, C400, C408, C141, C48, C45, C119, C120 #### [facility] [facility] [place] [facility] [address] [id number] TSHon 03-24-2019 TSH Qn 2.95 MIU/mL Normal 0.50-6.00 [facility] Comment on above: Performed By: #### C 80, C400, C408, C141, C48, C45, C119, C120 #### [facility] [place] [facility] [address] [place] [id number] Cholesterolon 02-10-2019 Cholesterol [Mass/Vol] 200 mg/dL High <200 [facility] Comment on above: Order Comment: Fasti ng: Unknown Performed By: #### C 80, C400, C408, C141, C48, C45, C119, C120 #### [facility] [address] [place] [address] [address] [place] [id number] Direct LDLon 02-10-2019 Cholesterol in LDL [Mass/Vol] 88 mg/dL Normal <130 [facility] Comment on above: Order Comment: Fasti ng: Unknown Result Comment: LDL goal dependent upon individual risk Performed By: #### C 80, C400, C408, C141, C48, C45, C119, C120 #### [facility] [address] [place] [address] [address] [place] [id number] HDLon 02-10-2019 Cholesterol in HDL [Mass/Vol] 90 mg/dL Normal >50 [facility] Comment on above: Order Comment: Fasti ng: Unknown Performed By: #### C 80, C400, C408, C141, C48, C45, C119, C120 #### [facility] [facility] [place] [facility] [address] [place] [id number] Triglycerideon 02-10-2019 Triglyceride [Mass/Vol] 119 mg/dL Normal <150 [facility] Comment on above: Order Comment: Fasti ng: Unknown Performed By: #### C 80, C400, C408, C141, C48, C45, C119, C120 #### [facility] [facility] [place] [facility] [address] [place] [address] B12/Folateon 02-09-2019 Cobalamin (Vitamin B12) [Mass/Vol] 989 pg/mL High 239-931 [facility] Comment on above: Order Comment: Fasti ng: Unknown Performed By: #### C 80, C400, C408, C141, C48, C45, C119, C120 #### [facility] [address] [place] [address] [address] [place] [address] Folate 8.12 ng/mL Normal 2.80-20.00 [facility] Comment on above: Order Comment: Fasti ng: Unknown Result Comment: Plea se note: Over the counter high dose supplements of Biotin that are 20 to 300 times greater than the adequate daily intake of 30 mcg/day for adults may cause a bias of 10% or more to be observed in the measured Folate concentrations. Performed By: #### C 80, C400, C408, C141, C48, C45, C119, C120 #### [facility] [address] [place] [address] [place] [address] Basic Metabolic Panelon 01-23 Anion gap [Moles/Vol] 10.00 mmol/L Normal 8.00-16.00 [facility] Comment on above: Order Comment: Items in this order include: Basic Metabolic Panel , Iron and TIBC, Hepatic Panel, Ferritin, Free T4, TSH, B12/Folate, Vit D 25 [place] (Total), CBC with differential, HgbA1C, Urine, Random, Albumin/Crea , , , , , Testing Performed By: [facility] [address] [place] [address] Irma Shahid, Property Disposal Manager Performed By: #### C 406, C3763, C1573, C80, C400, C408, C409, C136, C48, C45, C215 #### [facility] [address] [place] [address] [address] [place] [address] B/C Ratio 16.0 Ratio Normal [facility] Comment on above: Order Comment: Items in this order include: Basic Metabolic Panel , Iron and TIBC, Hepatic Panel, Ferritin, Free T4, TSH, B12/Folate, Vit D 25 [place] (Total), CBC with differential, HgbA1C, Urine, Random, Albumin/Crea , , , , , Testing Performed By: [facility] [address] [place], [place] [id number] Dr. Irma Shahid, Property Disposal Manager Performed By: #### C 406, C3763, C1573, C80, C400, C408, C409, C136, C48, C45, C215 #### [facility], [facility]. [address] [place] [address] [place] [address] Calcium [Mass/Vol] 9.4 mg/dL Normal 8.5-10.5 [facility] Comment on above: Order Comment: Items in this order include: Basic Metabolic Panel , Iron and TIBC, Hepatic Panel, Ferritin, Free T4, TSH, B12/Folate, Vit D 25 [place] (Total), CBC with differential, HgbA1C, Urine, Random, Albumin/Crea , , , , , Testing Performed By: [facility] [address] [place], [place] [id number] Dr. Irma Shahid, Property Disposal Manager Performed By: #### C 406, C3763, C1573, C80, C400, C408, C409, C136, C48, C45, C215 #### [facility], [facility]. [address] [place] [address] [address] [place] [address] Chloride [Moles/Vol] 101 mmol/L Normal 98-107 [facility] Comment on above: Order Comment: Items in this order include: Basic Metabolic Panel , Iron and TIBC, Hepatic Panel, Ferritin, Free T4, TSH, B12/Folate, Vit D 25 [place] (Total), CBC with differential, HgbA1C, Urine, Random, Albumin/Crea , , , , , Testing Performed By: [facility] [address] [place] [address] [place] [address] [address] Irma Shahid, Property Disposal Manager Performed By: #### C 406, C3763, C1573, C80, C400, C408, C409, C136, C48, C45, C215 #### [facility] [address] [place] [address] CO2 [Moles/Vol] 27.0 mmol/L Normal 22.0-30.0 [facility] Comment on above: Order Comment: Items in this order include: Basic Metabolic Panel , Iron and TIBC, Hepatic Panel, Ferritin, Free T4, TSH, B12/Folate, Vit D 25 [place] (Total), CBC with differential, HgbA1C, Urine, Random, Albumin/Crea , , , , , Testing Performed By: [facility] [facility] [place] [address] Dr. Irma Shahid, Property Disposal Manager Performed By: #### C 406, C3763, C1573, C80, C400, C408, C409, C136, C48, C45, C215 #### [facility] [address] [facility] [place] [facility] [address] [place] [address] Creatinine [Mass/Vol] 1.5 mg/dL High 0.1-1.2 [facility] Comment on above: Order Comment: Items in this order include: Basic Metabolic Panel , Iron and TIBC, Hepatic Panel, Ferritin, Free T4, TSH, B12/Folate, Vit D 25 [place] (Total), CBC with differential, HgbA1C, Urine, Random, Albumin/Crea , , , , , Testing Performed By: [facility] [facility] [place] [facility] [place] [address] Dr. Irma Shahid, Property Disposal Manager Performed By: #### C 406, C3763, C1573, C80, C400, C408, C409, C136, C48, C45, C215 #### [facility] [address] [facility] [address] [place] [address] GFR/1.73 sq M.predicted MDRD (S/P/Bld) [Vol rate/Area] 34 mL/min per 1.73 Low >60 [facility] Comment on above: Order Comment: Items in this order include: Basic Metabolic Panel , Iron and TIBC, Hepatic Panel, Ferritin, Free T4, TSH, B12/Folate, Vit D 25 [place] (Total), CBC with differential, HgbA1C, Urine, Random, Albumin/Crea , , , , , Testing Performed By: [facility] [address] [place] [address]. [place] [address] Dr. Irma Shahid, Property Disposal Manager Result Comment: The GFR estimate is not adjusted for race. If the patient's race is -[place], the GFR estimate must be multiplied by a factor of 1.21. Performed By: #### C 406, C3763, C1573, C80, C400, C408, C409, C136, C48, C45, C215 #### [facility] [address] [facility] [address] [place] [address] Glucose [Mass/Vol] 93 mg/dL Normal 74-100 [facility] Comment on above: Order Comment: Items in this order include: Basic Metabolic Panel , Iron and TIBC, Hepatic Panel, Ferritin, Free T4, TSH, B12/Folate, Vit D 25 [place] (Total), CBC with differential, HgbA1C, Urine, Random, Albumin/Crea , , , , , Testing Performed By: [facility] [address] [place] [address]. [place] [address] Dr. Irma Shahid, Property Disposal Manager Performed By: #### C 406, C3763, C1573, C80, C400, C408, C409, C136, C48, C45, C215 #### [facility] [address] [place] [address] Potassium [Moles/Vol] 4.8 mmol/L Normal 3.5-5.3 [facility] Comment on above: Order Comment: Items in this order include: Basic Metabolic Panel , Iron and TIBC, Hepatic Panel, Ferritin, Free T4, TSH, B12/Folate, Vit D 25 [place] (Total), CBC with differential, HgbA1C, Urine, Random, Albumin/Crea , , , , , Testing Performed By: [facility] [address] [place] [address]. [place] [id number] Dr. Irma Shahid, Property Disposal Manager Performed By: #### C 406, C3763, C1573, C80, C400, C408, C409, C136, C48, C45, C215 #### [facility] [address] [place] [address] [place] [address] Sodium [Moles/Vol] 138 mmol/L Normal 135-[address] [facility] Comment on above: Order Comment: Items in this order include: Basic Metabolic Panel , Iron and TIBC, Hepatic Panel, Ferritin, Free T4, TSH, B12/Folate, Vit D 25 [place] (Total), CBC with differential, HgbA1C, Urine, Random, Albumin/Crea , , , , , Testing Performed By: [facility] [address] [place] [address]. [place] [id number] Dr. Irma Shahid, Property Disposal Manager Performed By: #### C 406, C3763, C1573, C80, C400, C408, C409, C136, C48, C45, C215 #### [facility] [address] [place] [address] [address] [place] [address] Urea nitrogen [Mass/Vol] 24 mg/dL High 6-22 [facility] Comment on above: Order Comment: Items in this order include: Basic Metabolic Panel , Iron and TIBC, Hepatic Panel, Ferritin, Free T4, TSH, B12/Folate, Vit D 25 [place] (Total), CBC with differential, HgbA1C, Urine, Random, Albumin/Crea , , , , , Testing Performed By: [facility] [address] [place] [address]. [place] [address] Dr. Irma Shahid, Property Disposal Manager Performed By: #### C 406, C3763, C1573, C80, C400, C408, C409, C136, C48, C45, C215 #### [facility] [address] [place] [address] [place] [address] CBC with differentialon 09-1 8-2019 Basophils (Bld) [#/Vol] 0.0 K CUMM Normal 0.0-0.2 C [facility] Comment on above: Order Comment: Items in this order include: Basic Metabolic Panel , Iron and TIBC, Hepatic Panel, Ferritin, Free T4, TSH, B12/Folate, Vit D 25 [place] (Total), CBC with differential, HgbA1C, Urine, Random, Albumin/Crea , , , , , Testing Performed By: [facility] [address] [place] [address] Dr. Irma Shahid, Property Disposal Manager Performed By: #### C 406, C3763, C1573, C80, C400, C408, C409, C136, C48, C45, C215 #### [facility] [address] [place] [address] [place] [address] Basophils/100 WBC (Bld) 0.4 % Normal 0.0-3.0 C [facility] Comment on above: Order Comment: Items in this order include: Basic Metabolic Panel , Iron and TIBC, Hepatic Panel, Ferritin, Free T4, TSH, B12/Folate, Vit D 25 [place] (Total), CBC with differential, HgbA1C, Urine, Random, Albumin/Crea , , , , , Testing Performed By: [facility] [address] [place], [place] [id number] Dr. Irma Shahid, Property Disposal Manager Performed By: #### C 406, C3763, C1573, C80, C400, C408, C409, C136, C48, C45, C215 #### [facility] [address] [place] [address] [address] [place] [address] Eosinophils (Bld) [#/Vol] 0.1 K CUMM Normal 0.0-0.4 [facility] Comment on above: Order Comment: Items in this order include: Basic Metabolic Panel , Iron and TIBC, Hepatic Panel, Ferritin, Free T4, TSH, B12/Folate, Vit D 25 [place] (Total), CBC with differential, HgbA1C, Urine, Random, Albumin/Crea , , , , , Testing Performed By: [facility] [address] [place] [address]. [place] [address] Dr. Irma Shahid, Property Disposal Manager Performed By: #### C 406, C3763, C1573, C80, C400, C408, C409, C136, C48, C45, C215 #### [facility] [address] [place] [address] [address] [place] [address] Eosinophils/100 WBC (Bld) 1.5 % Normal 0.0-7.0 [facility] Comment on above: Order Comment: Items in this order include: Basic Metabolic Panel , Iron and TIBC, Hepatic Panel, Ferritin, Free T4, TSH, B12/Folate, Vit D 25 [place] (Total), CBC with differential, HgbA1C, Urine, Random, Albumin/Crea , , , , , Testing Performed By: [facility] [address] [place] [address]. [place] [id number] Dr. Irma Shahid, Property Disposal Manager Performed By: #### C 406, C3763, C1573, C80, C400, C408, C409, C136, C48, C45, C215 #### [facility] [address] [place] [address] [place] [address] Erythrocyte distribution width (RBC) [Ratio] 14.4 % Normal 11.5-15.5 [facility] Comment on above: Order Comment: Items in this order include: Basic Metabolic Panel , Iron and TIBC, Hepatic Panel, Ferritin, Free T4, TSH, B12/Folate, Vit D 25 [place] (Total), CBC with differential, HgbA1C, Urine, Random, Albumin/Crea , , , , , Testing Performed By: [facility] [address] [place] [address]. [place] [address] Dr. Irma Shahid, Property Disposal Manager Performed By: #### C 406, C3763, C1573, C80, C400, C408, C409, C136, C48, C45, C215 #### [facility] [address] [place] [address] [address] [place] [address] Hematocrit (Bld) [Volume fraction] 38.4 % Normal 37.0-47.0 [facility] Comment on above: Order Comment: Items in this order include: Basic Metabolic Panel , Iron and TIBC, Hepatic Panel, Ferritin, Free T4, TSH, B12/Folate, Vit D 25 [place] (Total), CBC with differential, HgbA1C, Urine, Random, Albumin/Crea , , , , , Testing Performed By: [facility] [address] [place] [address] Dr. Irma Shahid, Property Disposal Manager Performed By: #### C 406, C3763, C1573, C80, C400, C408, C409, C136, C48, C45, C215 #### [facility] [address] [place] [address] [place] [address] Hemoglobin (Bld) [Mass/Vol] 12.7 g/dL Normal 11.5-15.5 [facility] Comment on above: Order Comment: Items in this order include: Basic Metabolic Panel , Iron and TIBC, Hepatic Panel, Ferritin, Free T4, TSH, B12/Folate, Vit D 25 [place] (Total), CBC with differential, HgbA1C, Urine, Random, Albumin/Crea , , , , , Testing Performed By: [facility] [address] [place] [address] Dr. Irma Shahid, Property Disposal Manager Performed By: #### C 406, C3763, C1573, C80, C400, C408, C409, C136, C48, C45, C215 #### [facility] [address] [place] [address] [address] [place] [address] ImmGrn # 0.0 K CUMM Normal 0.0-0.3 [facility] Comment on above: Order Comment: Items in this order include: Basic Metabolic Panel , Iron and TIBC, Hepatic Panel, Ferritin, Free T4, TSH, B12/Folate, Vit D 25 [place] (Total), CBC with differential, HgbA1C, Urine, Random, Albumin/Crea , , , , , Testing Performed By: [facility] [address] [place] [address] Dr. Irma Shahid, Property Disposal Manager Performed By: #### C 406, C3763, C1573, C80, C400, C408, C409, C136, C48, C45, C215 #### [facility] [address] [facility] [address] [place] [address] ImmGrn % 0.3 % Normal 0.0-3.0 [facility] Comment on above: Order Comment: Items in this order include: Basic Metabolic Panel , Iron and TIBC, Hepatic Panel, Ferritin, Free T4, TSH, B12/Folate, Vit D 25 [place] (Total), CBC with differential, HgbA1C, Urine, Random, Albumin/Crea , , , , , Testing Performed By: [facility] [address] [place], [place] [id number] Dr. Irma Shahid, Property Disposal Manager Performed By: #### C 406, C3763, C1573, C80, C400, C408, C409, C136, C48, C45, C215 #### [facility] [address] [place] [address] [address] [place] [address] Lymphocytes (Bld) [#/Vol] 1.2 K CUMM Normal 0.7-4.5 [facility] Comment on above: Order Comment: Items in this order include: Basic Metabolic Panel , Iron and TIBC, Hepatic Panel, Ferritin, Free T4, TSH, B12/Folate, Vit D 25 [place] (Total), CBC with differential, HgbA1C, Urine, Random, Albumin/Crea , , , , , Testing Performed By: [facility] [address] [place] [address]. [place] [address] Dr. Irma Shahid, Property Disposal Manager Performed By: #### C 406, C3763, C1573, C80, C400, C408, C409, C136, C48, C45, C215 #### [facility] [address] [place] [address] [address] [place] [address] Lymphocytes/100 WBC (Bld) 13.6 % Low 14.0-46.0 [facility] Comment on above: Order Comment: Items in this order include: Basic Metabolic Panel , Iron and TIBC, Hepatic Panel, Ferritin, Free T4, TSH, B12/Folate, Vit D 25 [place] (Total), CBC with differential, HgbA1C, Urine, Random, Albumin/Crea , , , , , Testing Performed By: [facility] [address] [place] [address]. [place] [address] Dr. Irma Shahid, Property Disposal Manager Performed By: #### C 406, C3763, C1573, C80, C400, C408, C409, C136, C48, C45, C215 #### [facility] [address] [place] [address] [address] [place] [address] MCH (RBC) [Entitic mass] 31.3 pg High 27.0-31.0 [facility] Comment on above: Order Comment: Items in this order include: Basic Metabolic Panel , Iron and TIBC, Hepatic Panel, Ferritin, Free T4, TSH, B12/Folate, Vit D 25 [place] (Total), CBC with differential, HgbA1C, Urine, Random, Albumin/Crea , , , , , Testing Performed By: [facility] [address] [place] [address]. [place] [address] Dr. Irma Shahid, Property Disposal Manager Performed By: #### C 406, C3763, C1573, C80, C400, C408, C409, C136, C48, C45, C215 #### [facility] [address] [place] [address] [address] [place] [address] MCHC (RBC) [Mass/Vol] 33.1 g/dL Normal 32.0-36.0 [facility] Comment on above: Order Comment: Items in this order include: Basic Metabolic Panel , Iron and TIBC, Hepatic Panel, Ferritin, Free T4, TSH, B12/Folate, Vit D 25 [place] (Total), CBC with differential, HgbA1C, Urine, Random, Albumin/Crea , , , , , Testing Performed By: [facility] [address] [place] [address]. [place] [id number] Dr. Irma Shahid, Property Disposal Manager Performed By: #### C 406, C3763, C1573, C80, C400, C408, C409, C136, C48, C45, C215 #### [facility], [facility]. [address] [place] [address] [address] [place] [address] MCV (RBC) [Entitic vol] 94.6 fL Normal 78.0-100.0 [facility] Comment on above: Order Comment: Items in this order include: Basic Metabolic Panel , Iron and TIBC, Hepatic Panel, Ferritin, Free T4, TSH, B12/Folate, Vit D 25 [place] (Total), CBC with differential, HgbA1C, Urine, Random, Albumin/Crea , , , , , Testing Performed By: [facility] [address] [place], [place] [id number] Dr. Irma Shahid, Property Disposal Manager Performed By: #### C 406, C3763, C1573, C80, C400, C408, C409, C136, C48, C45, C215 #### [facility] [address] [place] [address] [address] [place] [address] Monocytes (Bld) [#/Vol] 0.8 K CUMM Normal 0.1-1.0 [facility] Comment on above: Order Comment: Items in this order include: Basic Metabolic Panel , Iron and TIBC, Hepatic Panel, Ferritin, Free T4, TSH, B12/Folate, Vit D 25 [place] (Total), CBC with differential, HgbA1C, Urine, Random, Albumin/Crea , , , , , Testing Performed By: [facility] [address] [place], [place] [id number] Dr. Irma Shahid, Property Disposal Manager Performed By: #### C 406, C3763, C1573, C80, C400, C408, C409, C136, C48, C45, C215 #### [facility] [address] [place] [address] [address] [place] [address] Monocytes/100 WBC (Bld) 8.7 % Normal 4.0-13.0 [facility] Comment on above: Order Comment: Items in this order include: Basic Metabolic Panel , Iron and TIBC, Hepatic Panel, Ferritin, Free T4, TSH, B12/Folate, Vit D 25 [place] (Total), CBC with differential, HgbA1C, Urine, Random, Albumin/Crea , , , , , Testing Performed By: [facility] [address] [place] [address]. [place] [address] Dr. Irma Shahid, Property Disposal Manager Performed By: #### C 406, C3763, C1573, C80, C400, C408, C409, C136, C48, C45, C215 #### [facility] [address] [place] [address] [address] [place] [address] Neutrophils (Bld) [#/Vol] 6.8 K CUMM Normal 1.8-7.8 [facility] Comment on above: Order Comment: Items in this order include: Basic Metabolic Panel , Iron and TIBC, Hepatic Panel, Ferritin, Free T4, TSH, B12/Folate, Vit D 25 [place] (Total), CBC with differential, HgbA1C, Urine, Random, Albumin/Crea , , , , , Testing Performed By: [facility] [address] [place] [address]. [place] [address] Dr. Irma Shahid, Property Disposal Manager Performed By: #### C 406, C3763, C1573, C80, C400, C408, C409, C136, C48, C45, C215 #### [facility] [address] [place] [address] [address] [place] [address] Neutrophils/100 WBC (Bld) 75.5 % High 40.0-74.0 [facility] Comment on above: Order Comment: Items in this order include: Basic Metabolic Panel , Iron and TIBC, Hepatic Panel, Ferritin, Free T4, TSH, B12/Folate, Vit D 25 [place] (Total), CBC with differential, HgbA1C, Urine, Random, Albumin/Crea , , , , , Testing Performed By: [facility] [address] [place] [address]. [place] [address] Dr. Irma Shahid, Property Disposal Manager Performed By: #### C 406, C3763, C1573, C80, C400, C408, C409, C136, C48, C45, C215 #### [facility] [address] [facility] [address] [place] [address] Platelet mean volume (Bld) [Entitic vol] 10.9 fL Normal 8.9-12.6 [facility] Comment on above: Order Comment: Items in this order include: Basic Metabolic Panel , Iron and TIBC, Hepatic Panel, Ferritin, Free T4, TSH, B12/Folate, Vit D 25 [place] (Total), CBC with differential, HgbA1C, Urine, Random, Albumin/Crea , , , , , Testing Performed By: [facility] [address] [place] [address] [address] Irma Shahid, Property Disposal Manager Performed By: #### C 406, C3763, C1573, C80, C400, C408, C409, C136, C48, C45, C215 #### [facility] [address] [facility] [place] [address] Platelets (Bld) [#/Vol] 283 K CUMM Normal 130-400 [facility] Comment on above: Order Comment: Items in this order include: Basic Metabolic Panel , Iron and TIBC, Hepatic Panel, Ferritin, Free T4, TSH, B12/Folate, Vit D 25 [place] (Total), CBC with differential, HgbA1C, Urine, Random, Albumin/Crea , , , , , Testing Performed By: [facility] [address] [place] [address]. [place] [address] Dr. Irma Shahid, Property Disposal Manager Performed By: #### C 406, C3763, C1573, C80, C400, C408, C409, C136, C48, C45, C215 #### [facility] [address] [place] [address] RBC (Bld) [#/Vol] 4.06 M CUMM Normal 3.80-5.10 [facility] Comment on above: Order Comment: Items in this order include: Basic Metabolic Panel , Iron and TIBC, Hepatic Panel, Ferritin, Free T4, TSH, B12/Folate, Vit D 25 [place] (Total), CBC with differential, HgbA1C, Urine, Random, Albumin/Crea , , , , , Testing Performed By: [facility] [address] [place] [address]. [place] [id number] Dr. Irma Shahid, Property Disposal Manager Performed By: #### C 406, C3763, C1573, C80, C400, C408, C409, C136, C48, C45, C215 #### [facility] [address] [place] [address] [address] [place] [address] WBC (Bld) [#/Vol] 9.1 K CUMM Normal 3.8-10.6 [facility] Comment on above: Order Comment: Items in this order include: Basic Metabolic Panel , Iron and TIBC, Hepatic Panel, Ferritin, Free T4, TSH, B12/Folate, Vit D 25 [place] (Total), CBC with differential, HgbA1C, Urine, Random, Albumin/Crea , , , , , Testing Performed By: [facility] [address] [place] [address]. [place] [address] Dr. Irma Shahid, Property Disposal Manager Performed By: #### C 406, C3763, C1573, C80, C400, C408, C409, C136, C48, C45, C215 #### [facility] [address] [place] [address] [place] [address] Culture, Urineon 02-09-2019 RPT Microbiology results Abnormal [facility] Comment on above: Order Comment: Fasti ng: Unknown Result Comment: Elda l Result: Less than 10,000 CFU/mL of 2 or more organisms present. This usually indicates vaginal, urethral and/or skin contamination. ID and sensitivities will not be performed. Performed By: #### C 80, C400, C408, C141, C48, C45, C119, C120 #### [facility] [address] [place] [address] Ferritinon 02-09-2019 Ferritin [Mass/Vol] 103.7 ng/mL Normal 15.0-200.0 [facility] Comment on above: Order Comment: Fasti ng: Unknown Performed By: #### C 80, C400, C408, C141, C48, C45, C119, C120 #### [facility] [address] [facility] [address] [place] [address] Free T4on 02-09-2019 Free T4 [Mass/Vol] 2.0 ng/dL High 0.7-1.8 [facility] Comment on above: Performed By: #### C 80, C400, C408, C141, C48, C45, C119, C120 #### [facility] [address] [facility] [address] [place] [address] Hepatic Panelon 02-09-2019 Albumin [Mass/Vol] 4.6 g/dL Normal 3.5-5.0 [facility] Comment on above: Performed By: #### C 80, C400, C408, C141, C48, C45, C119, C120 #### [facility] [address] [facility] [place] [address] Alk Phos 57 U/L Normal 23-159 [facility] Comment on above: Performed By: #### C 80, C400, C408, C141, C48, C45, C119, C120 #### [facility] [address] [facility] [place] [address] ALT [Catalytic activity/Vol] 27 U/L Normal 10-52 [facility] Comment on above: Performed By: #### C 80, C400, C408, C141, C48, C45, C119, C120 #### [facility] [address] [facility] [address] [place] [address] AST [Catalytic activity/Vol] 29 U/L Normal 11-43 [facility] Comment on above: Performed By: #### C 80, C400, C408, C141, C48, C45, C119, C120 #### [facility] [address] [place] [address] Bili (Direct) 0.0 mg/dL Normal 0.0-0.3 [facility] Comment on above: Performed By: #### C 80, C400, C408, C141, C48, C45, C119, C120 #### [facility] [address] [place] [address] Bili (Indirect) 0.3 mg/dL Normal 0.0-1.1 [facility] Comment on above: Performed By: #### C 80, C400, C408, C141, C48, C45, C119, C120 #### [facility] [address] [place] [address] Bilirubin [Mass/Vol] 0.8 mg/dL Normal 0.2-1.3 [facility] Comment on above: Performed By: #### C 80, C400, C408, C141, C48, C45, C119, C120 #### [facility] [address] [facility] [address] [place] [address] Protein [Mass/Vol] 6.9 g/dL Normal 6.3-8.4 [facility] Comment on above: Performed By: #### C 80, C400, C408, C141, C48, C45, C119, C120 #### [facility] [address] [facility] [address] [place] [address] [id number] 02-09-2019 HbA1c (Bld) [Mass fraction] 5.3 % Normal <5.7 [facility] Comment on above: Order Comment: Fasti ng: Unknown Result Comment: Refe rence Interval: Normal: below 5.7%. Prediabetes: 5.7% to 6.4%. Diabetes: 6.5% or above. Performed By: #### C 80, C400, C408, C141, C48, C45, C119, C120 #### [facility] [address] [place] [address] Iron and TIBCon 02-09-2019 % Saturation 36 % Normal 20-55 [facility] Comment on above: Order Comment: Fasti ng: Unknown Performed By: #### C 80, C400, C408, C141, C48, C45, C119, C120 #### [facility] [address] [place] [address] Iron [Mass/Vol] 97 ug/dL Normal 37-170 [facility] Comment on above: Order Comment: Fasti ng: Unknown Performed By: #### C 80, C400, C408, C141, C48, C45, C119, C120 #### [facility] [address] [place] [address] TIBC 271 ug/dL Normal 265-497 [facility] Comment on above: Order Comment: Fasti ng: Unknown Performed By: #### C 80, C400, C408, C141, C48, C45, C119, C120 #### [facility] [address] [place] [address] [address] [place] [address] TSHon 02-09-2019 TSH Qn 1.54 MIU/mL Normal 0.50-6.00 [facility] Comment on above: Order Comment: Fasti ng: Unknown Performed By: #### C 80, C400, C408, C141, C48, C45, C119, C120 #### [facility] [address] [facility] [address] [place] [address] Urine, Random, Albumin/Creao n 02-09-2019 Albumin DL <= 20 mg/L (U) [Mass/Vol] 2.6 mg/dL High 0.0-1.6 [facility] Comment on above: Order Comment: Fasti ng: Unknown Performed By: #### C 80, C400, C408, C141, C48, C45, C119, C120 #### [facility] [address] [place] [address] [address] [place] [address] Creatinine (U) [Mass/Vol] 179.0 mg/dL Normal 28.0-217.0 [facility] Comment on above: Order Comment: Fasti ng: Unknown Performed By: #### C 80, C400, C408, C141, C48, C45, C119, C120 #### [facility] [address] [facility] [address] [place] [address] Urine Microalb/ Creat Ratio 14.5 mcg/mg creat [...] C408, C141, C48, C45, C119, C120 #### [facility] [address] [facility] [address] [place] [address] Vit D 25 [place] (Total)on 2018 Vit D 25 [place] (Total) 34.3 ng/ml Normal 31.0-100.0 [facility] Comment on above: Order Comment: Fasti ng: Unknown Result Comment: Defi ciency <10 ng/ml Insufficiency 10-30 ng/ml Sufficiency 31-100 ng/ml Toxicity >100 ng/ml Performed By: #### C 80, C400, C408, C141, C48, C45, C119, C120 #### [facility] [address] [facility] [address] [place] [address] [place] Mammo Digital Screening b ilat (NB)on 10-06-2018 [place] Mammo Digital Screening bilat (NB) EXAMINATION TYPE: [place] Mammo Digital Screening bilat (NB) DATE OF EXAM : 10/06/2018 2:34 PM PATIENT HISTORY: Menarche at age 14. Patient has no children. Postmenopausal. Maternal aunt had breast cancer at or over age 50. PRIOR STUDIES: 03/30/2007, 03/02/2009, 12/04/2010, 10/05/2012, 07/10/2015 REASON FOR STUDY: Breast Screening. TECHNIQUE: Digital mammography views were obtained. Computer-aided detection utilizing RecogniaCAD reader has been performed. BREAST COMPOSITION: The breast tissue is almost entirely fatty FINDINGS: There are no suspicious abnormalities. There has been no significant interval change. IMPRESSION: No mammographic evidence for malignancy. BI-RADS Code: 1-Negative RECOMMENDATION: 1. Screening Mammogram in 1 year [place] thanks you for the opportunity to care for your patient. Workstation ID: [id number] FINAL REPORT Dictated By: Becka Valentine MD 10/06/2018 14:45 Assigned Physician: Becka Valentine MD Reviewed and Electronically Signed By: Becka Valentine MD 10/06/2018 14:45 Transcribed by: PIERRE 10/06/2018 14:45 Technologist: JAQUELINE Golden [facility] XR Bone Density DXA Axial Sk [facility] 10-06-2018 DXA Skeletal system Views for bone density ===== Bone Density Report ===== Name: DEBRA GARCÍA Age: 77 Sex: Female Ethnicity: White Date of : 1940 ----- Indication: postmenopausal osteoporosis; height loss; inflammatory bowel disease; hysterectomy; Referring Provider: NIA JOHNSON Study: Bone densitometry was performed. Exam Date: October 06, 2018 Accession number: [id number] Bone Density: ----- Region BMD T-score Z-score [...] cause or contribute to bone loss. The [place] [employer] (AACE) and National [...] 10/08/2018 08:25 10/08/2018 08:21 Technologist: JONAS Golden [facility] ECG 12-LEADon 09-29-2018 Atrial Rate [facility] P [place] [facility] P-R Interval [facility] Q-T Interval [facility] Q-T Interval (corrected) [facility] QRS Duration [facility] QTC Calculation (Bezet) [facility] [place] [facility] T [place] [facility] Ventricular Rate [facility] Basic Metabolic Panelon 06-25 Anion gap [Moles/Vol] 8.50 mmol/L Normal 8.00-16.00 [facility] Comment on above: Order Comment: Fasti ng: Unknown Performed By: #### C 80, C400, C408, C141, C48, C45, C119, C120 #### [facility] [address] [facility] [address] [place] [address] B/C Ratio 15.0 Ratio Normal [facility] Comment on above: Order Comment: Fasti ng: Unknown Performed By: #### C 80, C400, C408, C141, C48, C45, C119, C120 #### [facility] [address] [facility] [address] [place] [address] Calcium [Mass/Vol] 9.9 mg/dL Normal 8.5-10.5 [facility] Comment on above: Order Comment: Fasti ng: Unknown Performed By: #### C 80, C400, C408, C141, C48, C45, C119, C120 #### [facility] [address] [facility] [address] [place] [address] Chloride [Moles/Vol] 102 mmol/L Normal 98-107 [facility] Comment on above: Order Comment: Fasti ng: Unknown Performed By: #### C 80, C400, C408, C141, C48, C45, C119, C120 #### [facility] [address] [facility] [address] [place] [address] CO2 [Moles/Vol] 27.5 mmol/L Normal 22.0-30.0 [facility] Comment on above: Order Comment: Fasti ng: Unknown Performed By: #### C 80, C400, C408, C141, C48, C45, C119, C120 #### [facility] [address] [facility] [address] [place] [address] Creatinine [Mass/Vol] 1.0 mg/dL Normal 0.1-1.2 [facility] Comment on above: Order Comment: Fasti ng: Unknown Performed By: #### C 80, C400, C408, C141, C48, C45, C119, C120 #### [facility] [address] [facility] [address] [place] [address] GFR/1.73 sq M.predicted MDRD (S/P/Bld) [Vol rate/Area] 54 mL/min per 1.73 Low >60 [facility] Comment on above: Order Comment: Fasti ng: Unknown Result Comment: The GFR estimate is not adjusted for race. If the patient's race is -[place], the GFR estimate must be multiplied by a factor of 1.21. Performed By: #### C 80, C400, C408, C141, C48, C45, C119, C120 #### [facility] [address] [facility] [address] [place] [address] Glucose [Mass/Vol] 91 mg/dL Normal 74-100 [facility] Comment on above: Order Comment: Fasti ng: Unknown Performed By: #### C 80, C400, C408, C141, C48, C45, C119, C120 #### [facility] [address] [facility] [address] [place] [address] Potassium [Moles/Vol] 3.8 mmol/L Normal 3.5-5.3 [facility] Comment on above: Order Comment: Fasti ng: Unknown Performed By: #### C 80, C400, C408, C141, C48, C45, C119, C120 #### [facility] [address] [facility] [address] [place] [address] Sodium [Moles/Vol] 138 mmol/L Normal 135-145 [facility] Comment on above: Order Comment: Fasti ng: Unknown Performed By: #### C 80, C400, C408, C141, C48, C45, C119, C120 #### [facility] [address] [place] [address] Urea nitrogen [Mass/Vol] 15 mg/dL Normal 6-22 [facility] Comment on above: Order Comment: Fasti ng: Unknown Performed By: #### C 80, C400, C408, C141, C48, C45, C119, C120 #### [facility] [address] [place] [address] [address] [place] [address] Direct LDLon 07-07-2018 Cholesterol in LDL [Mass/Vol] 126 mg/dL Normal <130 [facility] Comment on above: Order Comment: Items in this order include: Free T4, Direct LDL , Urine, Random, Albumin/Crea , HDL, TSH, Triglyceride, Basic Metabolic Panel , Hepatic Panel, , Fasting: Unknown Result Comment: LDL goal dependent upon individual risk Performed By: #### C 80, C400, C408, C141, C48, C45, C119, C120 #### [facility] [facility] [address] [place] [address] Free T4on 07-07-2018 Free T4 [Mass/Vol] 1.5 ng/dL Normal 0.7-1.8 [facility] Comment on above: Order Comment: Items in this order include: Free T4, Direct LDL , Urine, Random, Albumin/Crea , HDL, TSH, Triglyceride, Basic Metabolic Panel , Hepatic Panel, , Fasting: Unknown Performed By: #### C 80, C400, C408, C141, C48, C45, C119, C120 #### [facility] [address] [facility] [place] [address] HDLon 07-07-2018 Cholesterol in HDL [Mass/Vol] 109 mg/dL Normal >50 [facility] Comment on above: Order Comment: Items in this order include: Free T4, Direct LDL , Urine, Random, Albumin/Crea , HDL, TSH, Triglyceride, Basic Metabolic Panel , Hepatic Panel, , Fasting: Unknown Performed By: #### C 80, C400, C408, C141, C48, C45, C119, C120 #### [facility] [address] [address] [place] [address] Hepatic Panelon 07-07-2018 Albumin [Mass/Vol] 4.9 g/dL Normal 3.5-5.0 [facility] Comment on above: Order Comment: Fasti ng: Unknown Performed By: #### C 80, C400, C408, C141, C48, C45, C119, C120 #### [facility] [address] [place] [address] Alk Phos 79 U/L Normal 23-159 [facility] Comment on above: Order Comment: Fasti ng: Unknown Performed By: #### C 80, C400, C408, C141, C48, C45, C119, C120 #### [facility] [address] [place] [address] ALT [Catalytic activity/Vol] 21 U/L Normal 10-52 [facility] Comment on above: Order Comment: Fasti ng: Unknown Performed By: #### C 80, C400, C408, C141, C48, C45, C119, C120 #### [facility] [facility] [place] [address] AST [Catalytic activity/Vol] 24 U/L Normal 11-43 [facility] Comment on above: Order Comment: Fasti ng: Unknown Performed By: #### C 80, C400, C408, C141, C48, C45, C119, C120 #### [facility] [address] [place] [address] Bili (Direct) 0.0 mg/dL Normal 0.0-0.3 [facility] Comment on above: Order Comment: Fasti ng: Unknown Performed By: #### C 80, C400, C408, C141, C48, C45, C119, C120 #### [facility] [address] [facility] [address] [place] [address] Bili (Indirect) 0.3 mg/dL Normal 0.0-1.1 [facility] Comment on above: Order Comment: Fasti ng: Unknown Performed By: #### C 80, C400, C408, C141, C48, C45, C119, C120 #### [facility] [facility] [address] [place] [address] Bilirubin [Mass/Vol] 1.0 mg/dL Normal 0.2-1.3 [facility] Comment on above: Order Comment: Fasti ng: Unknown Performed By: #### C 80, C400, C408, C141, C48, C45, C119, C120 #### [facility] [address] [place] [address] [address] [place] [address] Protein [Mass/Vol] 7.5 g/dL Normal 6.3-8.4 [facility] Comment on above: Order Comment: Fasti ng: Unknown Performed By: #### C 80, C400, C408, C141, C48, C45, C119, C120 #### [facility] [facility] [address] [place] [address] TSHon 07-07-2018 TSH Qn 5.11 MIU/mL Normal 0.50-6.00 [facility] Comment on above: Order Comment: Items in this order include: Free T4, Direct LDL , Urine, Random, Albumin/Crea , HDL, TSH, Triglyceride, Basic Metabolic Panel , Hepatic Panel, , Fasting: Unknown Performed By: #### C 80, C400, C408, C141, C48, C45, C119, C120 #### [facility] [address] [address] [place] [address] Triglycerideon 07-07-2018 CO2 [Moles/Vol] 107 mg/dL Normal <150 [facility] Comment on above: Order Comment: Fasti ng: Unknown Performed By: #### C 80, C400, C408, C141, C48, C45, C119, C120 #### [facility] [address] [address] [place] [address] Urine, Random, Albumin/Creao n 07-07-2018 Albumin DL <= 20 mg/L (U) [Mass/Vol] 11.7 mg/dL High 0.0-1.6 [facility] Comment on above: Order Comment: Items in this order include: Free T4, Direct LDL , Urine, Random, Albumin/Crea , HDL, TSH, Triglyceride, Basic Metabolic Panel , Hepatic Panel, , Fasting: Unknown Performed By: #### C 80, C400, C408, C141, C48, C45, C119, C120 #### [facility] [address] [address] [place] [address] Creatinine (U) [Mass/Vol] 95.2 mg/dL Normal 28.0-217.0 [facility] Comment on above: Order Comment: Items in this order include: Free T4, Direct LDL , Urine, Random, Albumin/Crea , HDL, TSH, Triglyceride, Basic Metabolic Panel , Hepatic Panel, , Fasting: Unknown Performed By: #### C 80, C400, C408, C141, C48, C45, C119, C120 #### [facility] [address] [facility] [address] [place] [address] Urine Microalb/ Creat Ratio 122.9 mcg/mg creat [...] C408, C141, C48, C45, C119, C120 #### [facility] [address] [address] [place] [address] CBC WITH AUTO DIFFERENTIALon 07-02-2018 Basophils #/vol (Bld) 0.04 10*3/uL [facility] Basophils/100 WBC (Bld) 0.5 % [facility] Eosinophils #/vol (Bld) 0.11 10*3/uL [facility] Eosinophils/100 WBC (Bld) 1.4 % [facility] Erythrocyte distribution width Entitic volume (RBC) 15.1 % High 11.6 - 14.8 % [facility] Hematocrit Volume Fraction (Bld) 38.0 % 36 - 46 % [facility] Hemoglobin mass conc (Bld) 12.6 g/dL 12 - 16 g/dL [facility] Immature granulocytes #/vol (Bld) 0.06 10*3/uL [facility] Immature granulocytes/100 WBC (Bld) 0.80 % [facility] Comment on above: The IG parameter is the percentage of metamyelocytes, myelocytes, and promyelocytes. Interpretation and review of laboratory results Abnormal [facility] Lymphocytes #/vol (Bld) 0.69 10*3/uL Low [facility] Lymphocytes/100 WBC (Bld) 8.7 % [facility] MCH Entitic mass (RBC) 32.4 pg 26 - 34 pg Oh [facility] MCHC mass conc (RBC) 33.2 g/dL 31 - 37 g/dL [facility] MCV Entitic volume (RBC) 97.7 fL 80 - 100 fL [facility] Monocytes #/vol (Bld) 0.74 10*3/uL [facility] Monocytes/100 WBC (Bld) 9.3 % [facility] Neutrophils #/vol (Bld) 6.28 10*3/uL [facility] Neutrophils/100 WBC (Bld) 79.3 % [facility] Nucleated RBC #/vol (Bld) 0.00 10*3/uL [facility] Nucleated RBC/100 WBC Ratio (Bld) 0.0 % [facility] Platelet mean volume Entitic volume (Bld) 10.8 fL 9 - 15.5 fL [facility] Platelets #/vol (Bld) 216 10*3/uL [facility] RBC #/vol (Bld) 3.89 10*6/uL Low [facility] WBC #/vol (Bld) 7.92 10*3/uL [facility] Chem 7on 07-02-2018 Anion gap molar conc 16 mmol/L 10 - 20 mmol/L [facility] Chloride molar conc 103 mmol/L 98 - 108 mmol/L [facility] Creatinine mass conc 1.12 mg/dL 0.6 - 1 .2 mg/dL [facility] GFR/1.73 sq M predicted among non-blacks MDRD vol rate/area (S/P/Bld) The eGFR should be used for monitoring renal function only and not for medication dosing. [facility] GFR/1.73 sq M.predicted CKD-EPI vol rate/area (S/P/Bld) 47 Low >=60 mL/min/1.73 m2 [facility] Glucose mass conc 117 mg/dL High 65 - 99 mg/dL [facility] HCO3 molar conc 27 mmol/L 21 - 32 mmol/L [facility] Interpretation and review of laboratory results Abnormal [facility] Potassium molar conc 4.3 mmol/L 3.5 - 5 .1 mmol/L [facility] Sodium molar conc 142 mmol/L 135 - 145 mmol/L [facility] Urea nitrogen mass conc 24 mg/dL 8 - 25 mg/dL [facility] Urea nitrogen/Creatinine mass ratio 21.4 mg/mg High [facility] Otheron 07-02-2018 Extra Tube Hold for add-ons. [facility] Comment on above: Auto resulted. URINALYSISon 07-02-2018 Bacteria Auto Ql (U) Rare Abnormal None Se en /hpf [facility] Bilirubin Ql (U) Negative Negative [facility] Clarity Refractometry automated Nom (U) Clear Clear [facility] Color Nom (U) Yellow Colorless, Yellow [facility] Epithelial cells.squamous Auto #/area (Urine sed) <1 [facility] Glucose Automated test strip mass conc (U) Negative Negative mg/dL [facility] Hemoglobin Automated test strip Ql (U) Negative Negative [facility] Hyaline casts Auto #/area (Urine sed) 3-5 Abnormal 0 - 2 /lpf [facility] Interpretation and review of laboratory results Abnormal [facility] Ketones mass conc (U) Negative Negati ve mg/dL [facility] Leukocyte esterase Automated test strip Ql (U) Negative Negative [facility] Mucus Auto #/area (Urine sed) Rare None Seen, Rare /lpf [facility] Nitrite Automated test strip Ql (U) Negative Negative [facility] pH (U) 6.0 [pH] [facility] Protein mass conc (U) Negative Negati ve mg/dL [facility] RBC Auto #/area (Urine sed) <1 [facility] Specific gravity Relative Density (U) 1.010 [facility] Urobilinogen mass conc (U) <2.0 <2.0 mg/dL [facility] WBC Auto #/area (Urine sed) <1 [facility] Microscopic examination is performed on all urinalysis samples and only positive findings are reported. The test for blood on the chemical analytic portion of urinalysis may also be positive due to hemoglobinuria and myoglobinuria and if red blood cells are present they are quantified by microscopic examination. [facility] Hepatic Function Panelon Alanine aminotransferase (ALT) 10 U/L Invalid Interpretation Code 0 - 40 U/L [facility] Albumin 4.4 g/dL Invalid Interpretation Code 3.2 - 5.2 g/dL [facility] Alkaline phosphatase (ALP) 58 U/L Invalid Interpretation Code 40 - 150 U/L [facility] Aspartate aminotransferase (AST) 15 U/L Invalid Interpretation Code 0 - 45 U/L [facility] Bilirubin (conjugated) 0.2 mg/dL Invalid Interpretation Code 0 - 0.4 mg/dL [facility] Bilirubin (total) 0.7 mg/dL Invalid Interpretation Code 0 - 1.3 mg/dL [facility] Protein 6.6 g/dL Invalid Interpretation Code 6 - 8 g/dL [facility] TSH with Reflex Free T4on Interpretation and review of laboratory results Normal Invalid Interpretation Code [facility] Thyroid stimulating hormone (TSH) 5.00 mcIU/mL Invalid Interpretation Code 0.32 - 5.00 [facility] XR Chest AP/PA and LATon XR Chest AP/PA and LAT 1. No acute cardiopulmonary process. 2. Stable hiatal hernia. 3. 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 [employer] Workstation ID: [id number] Invalid Interpretation Code [facility] ECG 12 [place] 04-08-2017 Atrial Rate Invalid Interpretation Code [facility] Work Phone: P [place] Invalid Interpretation Code [facility] Work Phone: P-R Interval Invalid Interpretation Code [facility] Work Phone: Q-T Interval Invalid Interpretation Code [facility] Work Phone: Q-T Interval (corrected) Invalid Interpretation Code [facility] Phone: QRS Duration Invalid Interpretation Code [facility] Work Phone: QTC Calculation (Bezet) Invalid Interpretation Code [facility] Phone: R [place] Invalid Interpretation Code [facility] Phone: T [place] Invalid Interpretation Code [facility] Phone: Ventricular Rate Invalid Interpretation Code [facility] Interactive TKO Phone: Hepatic Function Panelon Alanine aminotransferase (ALT) 9 U/L Invalid Interpretation Code 0 - 40 U/L [facility] Albumin 4.3 g/dL Invalid Interpretation Code 3.2 - 5.2 g/dL [facility] Alkaline phosphatase (ALP) 63 U/L Invalid Interpretation Code 40 - 150 U/L [facility] Aspartate aminotransferase (AST) 13 U/L Invalid Interpretation Code 0 - 45 U/L [facility] Bilirubin (conjugated) 0.2 mg/dL Invalid Interpretation Code 0 - 0.4 mg/dL [facility] Bilirubin (total) 0.4 mg/dL Invalid Interpretation Code 0 - 1.3 mg/dL [facility] Interpretation and review of laboratory results Normal Invalid Interpretation Code [facility] Protein 6.5 g/dL Invalid Interpretation Code 6 - 8 g/dL [facility] T4, Freeon 04-08-2017 Thyroxine (T4) free 1.5 ng/dL Invalid Interpretation Code 0.7 - 1.7 ng/dL [facility] TSH with Reflex Free T4on Interpretation and review of laboratory results Abnormal Invalid Interpretation Code [facility] Thyroid stimulating hormone (TSH) 8.89 mcIU/mL High 0.32 - 5.00 [facility] Vital Signs Date Time Vital Sign Value Performing Clinician Facility 08-08-2024 15:05-0400 Body height 149.86 cm [facility] 08-08-2024 15:05-0400 Body mass index (BMI) [Ratio] 32.6 kg/m2 [facility] 08-08-2024 [id number] Body weight 73.4 kg [facility] 04-14-2024 11:31-0500 Body height 149.86 cm [facility] 04-14-2024 11:31-0500 Body mass index (BMI) [Ratio] 32.7 kg/m2 [facility] 04-14-2024 11:31-0500 Body weight 73.48 kg [facility] 04-14-2024 11:31-0500 Diastolic blood pressure 65 mm[Hg] [facility] 04-14-2024 11:31-0500 Heart rate 90 /min [facility] 04-14-2024 11:31-0500 Systolic blood pressure 96 mm[Hg] [facility] 02-11-2024 16:26-0400 Body height 160 cm Uziel Camarena DPM Work Phone: [facility] 02-11-2024 16:26-0400 Body mass index (BMI) [Ratio] 29.41 kg/m2 Uziel Camarena DPM Work Phone: [facility] 02-11-2024 [id number] Body weight 75.3 kg Uziel Camarena DPM Work Phone: [facility] 02-11-2024 16:26-0400 Diastolic blood pressure 82 mm[Hg] Uziel Camarena DPM Work Phone: [facility] 02-11-2024 16:26-0400 Heart rate 74 /min Uziel Camarena DPM Work Phone: [facility] 02-11-2024 16:26-0400 Respiratory rate 18 /min Uziel Camarena DPM Work Phone: [facility] 02-11-2024 16:26-0400 Systolic blood pressure 126 mm[Hg] Uziel Camarena M Work Phone: [facility] 10-01-2023 14:35-0400 Body height 149.86 cm [facility] 10-01-2023 14:35-0400 Body mass index (BMI) [Ratio] 32.9 kg/m2 [facility] 10-01-2023 14:35-0400 Body weight 73.93 kg [facility] 10-01-2023 14:35-0400 Diastolic blood pressure 69 mm[Hg] [facility] 10-01-2023 14:35-0400 Heart rate 94 /min [facility] 10-01-2023 14:35-0400 Systolic blood pressure 102 mm[Hg] [facility] 02-17-2023 15:00-0400 Body height 149.86 cm Boyd Bustamante Other [employer] [facility] [employer] Other 02-17-2023 15:00-0400 Body mass index (BMI) [Ratio] 31.71 kg/m2 Boyd Bustamante Other [employer] Other 02-17-2023 15:00-0400 Body weight 71.22 kg Boyd Bustamante Other [employer] Other 02-17-2023 15:00-0400 Diastolic blood pressure 70 mm[Hg] Boyd Bustamante Other [employer] Other 02-17-2023 15:00-0400 SaO2% (BldA) [Mass fraction] 97 % Boyd Bustamante Other [employer] Other 02-17-2023 15:00-0400 Systolic blood pressure 90 mm[Hg] Boyd Bustamante Other [employer] Other 07-01-2022 15:30-0500 Body height 149.86 cm Boyd Bustamante Other [employer] Other 07-01-2022 15:30-0500 Body mass index (BMI) [Ratio] 32.92 kg/m2 Boyd Bustamante Other [employer] Other 07-01-2022 15:30-0500 Body weight 73.94 kg Boyd Bustamante Other [employer] Other 07-01-2022 15:30-0500 Diastolic blood pressure 72 mm[Hg] Boyd Bustamante Other [employer] Other 07-01-2022 15:30-0500 SaO2% (BldA) [Mass fraction] 98 % Boyd Bustamante Other [employer] Other 07-01-2022 15:30-0500 Systolic blood pressure 126 mm[Hg] Boyd Bustamante Other [employer] Other 01-06-2020 10:18-0400 BMI (Body Mass Index) 27.5 kg/m2 Leonora [facility] 01-06-2020 10:18-0400 Body weight 72.67 kg Leonora [facility] 01-06-2020 10:18-0400 BP Diastolic 68 mm[Hg] Leonora [facility] 01-06-2020 10:18-0400 BP Systolic 116 mm[Hg] Leonora [facility] 01-06-2020 10:18-0400 Height 162.6 cm [facility] 01-06-2020 10:18-0400 Pulse (Heart Rate) 57 /min Leonora [facility] 09-29-2018 14:07-0400 BMI (Body Mass Index) 32.27 kg/m2 Leonora [facility] 09-29-2018 14:07-0400 BP Diastolic 73 mm[Hg] Leonora [facility] 09-29-2018 14:07-0400 BP Systolic 122 mm[Hg] Leonora [facility] 09-29-2018 14:07-0400 Height 162.6 cm Leonora [facility] 09-29-2018 14:07-0400 Pulse (Heart Rate) 63 /min Leonora Saunders [facility] 09-29-2018 14:07-0400 Weight 85.28 kg Leonora Saunders [facility] 07-02-2018 09:02-0500 BP Diastolic 56 mm[Hg] Tito Snell [facility] 07-02-2018 09:02-0500 BP Systolic 127 mm[Hg] Tito [facility] 07-02-2018 09:02-0500 Pulse (Heart Rate) 70 /min Tito [facility] 07-02-2018 09:02-0500 Pulse Oximetry 96 % [facility] 07-02-2018 09:02-0500 Respiratory Rate 16 /min [facility] 07-02-2018 05:27-0500 BMI (Body Mass Index) 36.22 kg/m2 [facility] 07-02-2018 05:27-0500 Body Temperature 98.6 [degF] Tito [facility] 07-02-2018 05:27-0500 Height 162.6 cm [facility] 07-02-2018 05:27-0500 Weight 95.71 kg [facility] 04-08-2017 11:19-0500 BMI (Body Mass Index) 35.53 kg/m2 Leonora Saunders [facility] Work Phone: 04-08-2017 11:19-0500 BP Diastolic 74 mm[Hg] Leonora Saunders [facility] Work Phone: 04-08-2017 11:19-0500 BP Systolic 120 mm[Hg] Leonora Saunders [facility] Work Phone: 04-08-2017 11:19-0500 Height 162.6 cm Leonora Saunders [facility] Work Phone: 04-08-2017 11:19-0500 Pulse (Heart Rate) 66 /min Leonora Saunders [facility] Work Phone: 04-08-2017 11:19-0500 Weight 93.89 kg Leonora Saunders [facility] Work Phone: Encounters Encounter Date Encounter Type Care Provider Facility Start: 01-09-2025 Evaluation and management of inpatient [facility] Start: 01-09-2025 ambulatory [facility] Start: 01-09-2025 End: 01-09-2025 Evaluation and management of inpatient [facility] Start: 12-26-2024 ambulatory [facility] Start: 12-13-2024 End: 12-13-2024 ambulatory [facility] Start: 12-09-2024 ambulatory [facility] Start: 12-08-2024 ambulatory [facility] Start: 10-25-2024 End: 10-25-2024 ambulatory [facility] Start: 10-24-2024 ambulatory [facility] Start: 09-29-2024 ambulatory [facility] Start: 09-26-2024 ambulatory [facility] Start: 09-19-2024 ambulatory [facility] Start: 08-25-2024 End: 08-25-2024 Patient encounter procedure Boyd Bustamante MD Work Phone: [facility] [place] Work Phone: Start: 08-25-2024 End: 08-25-2024 ambulatory Boyd Bustamante MD Work Phone: [facility] Work Phone: Start: 08-08-2024 End: 08-08-2024 Patient encounter procedure Boyd Bustamante MD Work Phone: [facility] [place] Work Phone: Start: 08-08-2024 End: 08-08-2024 ambulatory Boyd Bustamante MD Work Phone: [facility] Work Phone: Start: 08-08-2024 End: 08-08-2024 ambulatory [facility] Work Phone: Start: 08-08-2024 End: 08-08-2024 Patient encounter procedure [facility] Work Phone: Start: 07-18-2024 End: 07-18-2024 Adán Calvillo MD Work Phone: [facility] Start: 07-18-2024 End: 07-18-2024 Bamboo flowsdenise Calvillo MD Work Phone: [facility] Start: 07-18-2024 End: 07-18-2024 Refill Cheryl Rodriguez COT Work Phone: [facility] Comment on above: KCS (keratoconjuncti vitis sicca) (Primary Dx) Start: 04-28-2024 End: 05-06-2024 Telephone encounter Uziel Camarena DPM Work Phone: [facility] Start: 04-14-2024 End: 04-14-2024 ambulatory [facility] Work Phone: Start: 04-14-2024 End: 04-14-2024 Patient encounter procedure [facility] Work Phone: Start: 03-15-2024 End: 03-15-2024 ambulatory [facility] [facility] Start: 02-24-2024 Non-patient / Non-visit [facility] Work Phone: Start: 02-24-2024 End: 02-24-2024 ambulatory [facility] Start: 02-23-2024 End: 02-23-2024 ambulatory [facility] Start: 02-11-2024 End: 02-11-2024 Patient encounter procedure Uziel Camarena DPM Work Phone: [facility] Comment on above: Metatarsal deformity , right (Primary Dx); Onychomycosis; Toe pain, bilateral; Metatarsal deformity, left Start: 02-11-2024 End: 02-11-2024 ambulatory UZIEL CAMARENA Not Available Start: 02-11-2024 End: 02-11-2024 Bamboo flowsdenise Camarena DPM Work Phone: [facility] Start: 02-11-2024 End: 02-11-2024 Bamboo flowsheet Uziel Camarena DPM Work Phone: [facility] Start: 01-20-2024 End: 01-20-2024 ambulatory [facility] Start: 01-13-2024 ambulatory [facility] Start: 01-13-2024 ambulatory [facility] Start: 01-13-2024 End: 01-13-2024 ambulatory [facility] Start: 01-06-2024 End: 01-06-2024 ambulatory SRUTHI CALVILLO Not Available Start: 12-03-2023 End: 12-03-2023 ambulatory UZIEL CAMARENA Not Available Start: 10-01-2023 End: 10-01-2023 ambulatory [facility] Work Phone: Start: 10-01-2023 End: 10-01-2023 Patient encounter procedure [facility] Work Phone: Start: 09-29-2023 Non-patient / Non-visit [facility] Work Phone: Start: 08-19-2023 ambulatory NIA JOHNSON [facility] Start: 08-19-2023 ambulatory NIA JOHNSON [facility] Start: 08-19-2023 ambulatory NIA JOHNSON [facility] Start: 07-17-2023 Non-patient / Non-visit [facility] Work Phone: Start: 02-17-2023 End: 02-17-2023 ambulatory Boyd Bustamante Other [employer] Other Start: 02-17-2023 Office outpatient vi sit 15 minutes Boyd Bustamante [facility] Start: 01-21-2023 End: 01-21-2023 ambulatory Boyd Bustamante Other [employer] Other Start: 01-21-2023 Telephone encounter Boyd Bustamante [facility] Start: 01-19-2023 End: 01-19-2023 ambulatory Boyd Bustamante Other [employer] Other Start: 01-19-2023 Telephone encounter Boyd Bustamante [facility] Start: 11-28-2022 End: 11-28-2022 ambulatory Boyd Bustamante Other [employer] Other Start: 11-28-2022 Telephone encounter Boyd Bustamante [facility] Start: 10-22-2022 End: 10-22-2022 ambulatory Boyd Bustamante Other [employer] Other Start: 10-22-2022 Telephone encounter Boyd Bustamante [facility] Start: 10-21-2022 End: 10-21-2022 ambulatory Boyd Bustamante Other [employer] Other Start: 10-21-2022 Telephone encounter Boyd Bustamante [facility] Start: 09-24-2022 End: 09-25-[address] BOYD BUSTAMANTE Facility: Start: 08-19-2022 End: 08-19-2022 ambulatory Boyd Bustamante Other [employer] Other Start: 08-19-2022 Telephone encounter Boyd Bustamante [employer] Start: 08-12-2022 End: 08-13-[address] BOYD BUSTAMANTE [employer] Other Start: 08-12-2022 Telephone encounter Boyd Bustamante [facility] Start: 07-24-2022 End: 07-25-[address] BOYD BUSTAMANTE Facility:[facility]1 Start: 07-17-[address] BOYD BUSTAMANTE Facil ity:[facility]1 Start: 07-02-2022 End: 07-02-2022 ambulatory Boyd Bustamante Other [employer] Other Start: 07-02-2022 Telephone encounter Boyd Bustamante [facility] Start: 07-01-2022 End: 07-01-2022 ambulatory Boyd Bustamante Other [employer] Other Start: 07-01-2022 Patient encounter procedure Boyd Bustamante [facility] Start: 09-18-2020 Refill Leonora Saunders MD Work Phone: [facility] Comment on above: Medication Refill Start: 06-14-2020 End: 06-14-2020 Orders Only Tessy Gomez Work Phone: [facility] Start: 02-03-2020 End: 02-07-2020 Patient encounter procedure NIA KANG LISSA [facility] Start: 01-09-2020 End: 01-09-2020 Patient encounter procedure Shelia Beckett Work Phone: [facility] Start: 01-06-2020 End: 01-10-2020 Patient encounter procedure LEONORA SAUNDERS [facility] Start: 01-06-2020 End: 01-07-2020 Patient encounter procedure LEONORA SAUNDERS [facility] Start: 01-06-2020 End: 01-06-2020 Office outpatient visit 15 minutes Leonora Saunders Work Phone: [facility] Comment on above: PAF (paroxysmal atri al fibrillation) (HCC) (Primary Dx); MCFP current use of 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 drug; 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, unspecified type Start: 01-06-2020 End: 01-06-2020 Subsequent hospital visit by physician Leonora Saunders Work Phone: [facility] Comment on above: MCFP current us e of 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 drug; PAF (paroxysmal atrial fibrillation) (HCC) Start: 09-06-2019 End: 09-06-2019 Patient encounter procedure Leonora Saunders Work Phone: [facility] Start: 04-19-2019 End: 04-19-2019 Patient encounter procedure Leonora Saunders Work Phone: [facility] Start: 03-09-2019 End: 03-13-2019 Patient encounter procedure NIA JOHNSON [facility] Start: 03-07-2019 End: 03-07-2019 Patient encounter procedure Leonora Saunders Work Phone: [facility] Start: 09-29-2018 End: 09-29-2018 Office outpatient visit 25 minutes Leonora Saunders Work Phone: [facility] Comment on above: PAF (paroxysmal atri al fibrillation) (HCC) (Primary Dx); 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, unspecified type; MCFP current use of 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 drug Start: 09-28-2018 End: 09-28-2018 Patient encounter procedure Leonora Saunders Work Phone: [facility] Start: 08-11-2018 End: 08-11-2018 Patient encounter procedure Leonora Saunders Work Phone: [facility] Start: 07-05-2018 End: 07-05-2018 Patient encounter procedure Leonora Saunders Work Phone: [facility] Start: 07-02-2018 End: 07-02-2018 Evaluation and management of inpatient Tito Snell Work Phone: [facility] Start: 04-09-2018 End: 04-09-2018 Patient encounter procedure Leonora Saunders Work Phone: [facility] Start: 04-05-2018 End: 04-05-2018 Patient encounter Leonora Saunders Work Phone: [facility] Start: 12-30-2017 End: 12-30-2017 Patient encounter Leonora Ministerio Saunders Work Phone: [facility] Start: 08-11-2017 Patient encounter Leonora Ramsaycarolin Saunders Work Phone: [facility] Start: 07-08-2017 End: 07-08-2017 Ambulatory Leonora Ministerio Honorio Work Phone: [facility] Draw Site Start: 06-17-2017 Ambulatory Leonora Saunders Work Phone: [facility] Start: 04-08-2017 Office outpatient vi sit 15 minutes Leonora Saunders Work Phone: [facility] Start: 04-08-2017 End: 04-08-2017 Ambulatory Leonora Saunders Work Phone: [facility] Start: 03-24-2017 Ambulatory Leonora Saunders Work Phone: [facility] Start: 03-13-2017 Patient encounter Leonora Joseph Saunders Work Phone: [facility] Start: 01-09-2017 End: 01-09-2017 Patient encounter procedure Leonora Ministerio Saunders Work Phone: [facility] Start: 12-01-2016 End: 12-01-2016 Patient encounter procedure Leonora Ministeriolana Saunders Work Phone: [facility] Procedures [...] 05-03-2031 Tetanus vaccination Tetanus: Every 1 0yrs [facility] Start: 01-19-2025 End: 01-19-2025 Patient encounter procedure 01/19/2025 2:00 PM EDT Office Visit [facility] [address] [place] [address] Sruthi Calvillo MD [address] [place] [address] [facility] Start: 07-18-2024 End: 07-18-2024 Patient encounter procedure 07/18/2024 1:45 PM EST Office Visit [facility] [address] [place] [address] Sruthi Calvillo MD [address] [place] [address] Arrived [facility] Comment on above: Arrived Start: 07-06-2024 End: 07-06-2024 Patient encounter procedure 07/06/2024 1:15 PM EST Office Visit [facility] [address] [place] [address] Sruthi Calvillo MD [address] [place] [address] [facility] Start: 05-26-2024 End: 05-26-2024 Patient encounter procedure 05/26/2024 1:50 PM EST Procedure Visit [facility] [address] [place] [id number] Uziel Camarena DPM [address] [address] [facility] Start: 02-11-2024 End: 02-11-2024 Patient encounter procedure 02/11/2024 4:30 PM EDT Procedure Visit [facility] [address] [place] [address] Uziel Camarena, DPM [address] [address] Onychomycosis (Primary Dx); Toe pain, bilateral; Metatarsal deformity, right; Metatarsal deformity, left [facility] Comment on above: Onychomycosis (Prima ry Dx); Toe pain, bilateral; Metatarsal deformity, right; Metatarsal deformity, left Start: 01-24-2024 Influenza vaccination Influenza Vacc ine (#1) [facility] Start: 01-23-2022 Influenza vaccination Sequenti al Influenza Vaccine (#1) [facility] Start: 01-05-2021 CLASS III : OFFICE VISIT CLASS III : OFFICE VISIT [facility] Start: 08-02-2020 Thyroid stimulating hormone measurement Class III : TSH [facility] Start: 07-08-2020 Alanine aminotransfe rase measurement CLASS III : ALT [facility] Start: 03-09-2020 CLASS III : EKG CLASS III : EKG [facility] Start: 02-10-2020 History and physical examination, annual for health maintenance Wellness Visit [facility] Start: 01-24-2020 Influenza vaccinatio n given Sequential Influenza Vaccine (#1) [facility] Start: 09-30-2019 CLASS III : OFFICE VISIT CLASS III : OFFICE VISIT [facility] Start: 09-28-2019 CLASS III : EKG CLASS III : EKG [facility] Start: 09-08-2019 CLASS III : ALT CLASS III : ALT [facility] Start: 09-08-2019 CLASS III : AST CLASS III : AST [facility] Start: 09-08-2019 CLASS III : TSH CLASS III : TSH [facility] Start: 03-30-2019 CLASS III : ALT CLASS III : ALT [facility] Start: 03-30-2019 CLASS III : AST CLASS III : AST [facility] Start: 03-30-2019 CLASS III : TSH CLASS III : TSH [facility] Start: 03-04-2019 CLASS III : EKG CLASS III : EKG [facility] Start: 01-23-2019 Influenza vaccinatio n given [facility] Start: 09-29-2018 End: 09-29-2018 Appointment [facility] Start: 09-02-2018 CLASS III : ALT CLASS III : ALT [facility] Start: 09-02-2018 CLASS III : AST CLASS III : AST [facility] Start: 09-02-2018 CLASS III : TSH CLASS III : TSH [facility] Start: 07-08-2018 CLASS III : EKG CLASS III : EKG [facility] Start: 04-10-2018 Pneumococcal Vaccine : 65+ Years (2 of 2 - PPSV23 or PCV20) Pneumococcal Vaccine: 65+ Years (2 of 2 - PPSV23 or PCV20) [facility] Start: 04-08-2018 CLASS III : OFFICE VISIT CLASS III : OFFICE VISIT [employer] Phone: Start: 01-23-2018 Influenza vaccination [facility] Start: 01-23-2018 Influenza vaccinatio n given SEQUENTIAL INFLUENZA VACCINE (#1) [facility] Start: 01-06-2018 CLASS III : EKG CLASS III : EKG [employer] Phone: Start: 01-05-2018 CLASS III : ALT CLASS III : ALT [employer] Start: 01-05-2018 CLASS III : AST CLASS III : AST [employer] Start: 01-05-2018 CLASS III : TSH CLASS III : TSH [employer] Start: 10-06-2017 CLASS III : ALT CLASS III : ALT [employer] Phone: Start: 10-06-2017 CLASS III : AST CLASS III : AST [employer] Phone: Start: 10-06-2017 CLASS III : TSH CLASS III : TSH [employer] Phone: Start: 07-09-2017 CLASS III : ALT CLASS III : ALT [employer] Phone: Start: 07-09-2017 CLASS III : AST CLASS III : AST [employer] Phone: Start: 07-09-2017 CLASS III : TSH CLASS III : TSH [employer] Phone: Start: 04-04-2017 CLASS III : EKG CLASS III : EKG [employer] Phone: Start: 04-02-2017 CLASS III : OFFICE VISIT CLASS III : OFFICE VISIT [employer] Phone: Start: 01-23-2017 Influenza vaccination SEQUENTI AL INFLUENZA VACCINE (#1) [employer] Work Phone: Start: 01-23-2017 SEQUENTIAL INFLUENZA VACCINE (#1) SEQUENTIAL INFLUENZA VACCINE (#1) [employer] Phone: Start: 09-30-2016 CLASS III : ALT CLASS III : ALT [employer] Phone: Start: 09-30-2016 CLASS III : AST CLASS III : AST [facility] Work Phone: Start: 09-30-2016 CLASS III : TSH CLASS III : TSH [facility] Work Phone: Start: 11-15-2015 Pneumococcal vaccination PNEUM OCOCCAL VACCINE AGE 65+ (2 of 2 - PPSV23) [facility] Start: 11-15-2015 Pneumococcal Vaccine : 65+ Years (2 of 2 - PPSV23 or PCV20) Pneumococcal Vaccine: 65+ Years (2 of 2 - PPSV23 or PCV20) [facility] Start: 11-15-2015 Pneumococcal Vaccine : Age 65+ (2 - PPSV23 if available, else PCV20) Pneumococcal Vaccine: Age 65+ (2 - PPSV23 if available, else PCV20) [facility] Start: 2005 Fall risk assessment [facility] Start: 2005 Pneumococcal vaccination PNEUM OCOCCAL VACCINE AGE 65+ (1 of 2 - PCV13) [facility] Work Phone: Start: 2005 PNEUMOCOCCAL VACCINE AGE 65+ (1 of 2 - PCV13) PNEUMOCOCCAL VACCINE AGE 65+ (1 of 2 - PCV13) [facility] Work Phone: Start: 2000 Zoster vacc, sc ZOSTER VACCINE [facility] Work Phone: Start: 1990 Administration of he rpes zoster vaccine ZOSTER VACCINES (1 of 2) [facility] Start: 1990 ZOSTER VACCINES (1 of 2) ZOSTE R VACCINES (1 of 2) [facility] Start: 12-18-1959 Administration of he rpes zoster vaccine Zoster Vaccines (1 of 2) [facility] Start: 1958 Hepatitis C antibody , confirmatory test Hepatitis C Screening [facility] Start: 1952 Adolescent depressio n screening assessment Depression Screening (PHQ9) [facility] Start: 1952 Depression screening using PHQ-9 (Patient Health Questionnaire 9) score Depression Screening (PHQ-2/9) [facility] Start: 12-18-1943 History and physical examination, annual for health maintenance Wellness Visit [facility] Start: 06-19-1941 COVID-19 Vaccine (#1) COVID-19 Vacci ne (#1) [facility] Start: 1940 DEXA SCAN DEXA SCAN [facility] Work Phone: Start: 1940 Fall risk assessment Falls Risk Asse ssment [facility] Start: 1940 Protein mass conc Mammogram [facility] Start: 1940 Screening mammography Mammogram [facility] Start: 1940 TETANUS EVERY 10 YR TETANUS EVERY 10 YR [facility] Work Phone: Start: 1940 End: 1940 Screening for osteoporosis DEXA SCAN [facility] Start: 1940 End: 1940 Tetanus vaccination [facility] Work Phone: End: 07-02-2018 Bacteria identified Aer cx Nom (Unsp spec) Urine Aerobic Culture Routine Once for 1 Occurrences starting 07/02/2018 until 07/02/2018 [facility] Comment on above: Once for 1 Occurrenc es starting 07/02/2018 until 07/02/2018 Bacteria identified Aer cx Nom (Unsp spec) Urine Aerobic Culture Routine 07/02/2018 8:08 AM EST [facility] Comprehensive metabo lic 2000 panel - Serum or Plasma [facility] X-ray of chest and abdomen XR Ab domen 2 Views With Chest 1 View STAT 07/02/2018 6:50 AM EST [facility] Immunizations Immunization Date Immunization Notes [facility] influenza virus vacc ine, unspecified formulation Uziel Camarena DPM Work Phone: [facility] Payers Date Payer Category Payer Self-pay 2021 Medicaid [employer] MEDICARE A DVANTAGE [id number] 2014 Medicare [id number] 2014 Medicare [id number] 2014 Medicare [employer] [place]NA[place]ED [place] [employer] MEDICARE PLAN (PPO) [id number] 2014-Present [id number] 2014 Medicare [id number] 1959 Medicare [id number] 1940 Unknown [id number] 1940 Unknown [id number] [id number] 1940 Unknown [id number] [id number] 1940 Unknown [id number] [id number] 1940 Unknown [id number] [id number] 1940 Unknown [id number] [id number] 1940 Unknown [id number] [id number] 1940 Unknown [id number] [id number] 1940 Unknown [id number] [id number] 1940 Unknown [id number] [id number] 1940 Unknown [id number] [id number] 1940 Unknown [id number] [id number] 1940 Unknown [id number] [id number] 1940 Unknown [id number] [id number] Medicare Medicare [id number] Unknown [id number] Unknown [id number] Social History Date Type Detail Facility Start: 04-08-2017 End: 02-19-2023 Tobacco smoking status [facility] Former smoker [facility] Work Phone: End: 05-25-1969 History of tobacco use Current smoker [facility] Work Phone: Start: 1940 Sex Assigned At Not on file [facility] Work Phone: Start: 07-02-2018 End: 01-06-2020 Alcohol intake Current non-drinker of alcohol (finding) [facility] Exposure to SARS-CoV-2 (event) Not sure [facility] Start: 01-06-2020 End: 02-19-2023 Tobacco use and exposure Never used [facility] End: 05-25-1969 History of tobacco use Cigarette Smoker [facility] Start: 01-06-2024 End: 02-11-2024 Sex Assigned At [employer] Other Start: 1940 Sex Assigned At Female [facility] Tobacco smoking status NDIS Unknown if ever smoked [facility] Work Phone: Start: 04-14-2024 End: 08-26-2024 Sex Female (finding) [facility] Start: 02-11-2024 End: 07-18-2024 Alcoholic beverage intake Lifetime non-drinker (finding) [facility] Start: 01-06-2024 End: 02-11-2024 History of Social function [facility] NEGATED: Highlighted rowStart: NINF History of tobacco use Passive smoker [facility] Clinical Notes 09-18-2020 to 01-09-2025 Note Date & Type Note Facility 01-09-2025 Note Patient: Debra Seaman ahl Procedure Information Date/Time: 01/09/25 1400 Procedure: Pacemaker lead revision Location: [facility]PER[facility] 1 / [facility] (Cath) Providers: Param Padron MD Clinical information reviewed: Allergies Meds OB Status Physical Exam Airway Mallampati: II TM distance: >3 FB Neck ROM: full Cardiovascular Dental Pulmonary Neurological Abdominal Anesthesia Plan ASA 3 CSE Anesthetic plan and risks discussed with patient. Use of blood products discussed with patient who. Additional Equipment Requests [facility] 12-13-2024 Note [place] Electrophysiology Consult Note Reason for visit: Afib, [...] Patient underwent AV node ablation and Bi[facility] BIOPHYSICS TEACHER-P upgrade on 01/13/2024. Unfortunately she did not have locations well thresholds could be good without diaphragmatic stim. This has been a challenge and then subsequent follow-up the numbers are also high. However, hr EF has come to normal with BIOPHYSICS TEACHER. 12/08/23 patient underwent cardioversion on 07/22/2023 and [...] thyroid issues. She had previous seen a [facility] machine operator and an outlying facility and recently moved here about 2 years ago and has not established with a [facility] machine operator. She was seen by Ranjan SOSA and subsequently started on anticoagulation with Eliqukelly. previously she had afib ablation with [facility] before 2009 had for unclear reasons was not placed on anticoagulation when he saw her. she got admitted to [facility] ED on 02/06/2023 following a fall. versus attributed to be a mechanical fall as she tripped on the corner curb. no loss of consciousness. CT of the head was negative for any hemorrhage. she had some lacerations which were sutured. She had a recent echocardiogram done which showed cardiomyopathy with a EF of 35 to 40%. [id number] at least 6 for age, gender, hypertension, [...] Needs (04/10/2023) Transportation (more content not included)... [facility] 10-25-2024 Note [place] Electrophysiology Consult Note [...] Patient underwent AV node ablation and BiV BIOPHYSICS TEACHER-P upgrade on 01/13/2024. Unfortunately she did not have locations well thresholds could be good without diaphragmatic stim. This has been a challenge and then subsequent follow-up the numbers are also high. However, hr EF has come to normal with BIOPHYSICS TEACHER. 12/08/23 patient underwent cardioversion on 07/22/2023 and [...] thyroid issues. She had previous seen a [facility] machine operator and an outlying facility and recently moved here about 2 years ago and has not established with a [facility] machine operator. She was seen by Ranjan SOSA and subsequently started on anticoagulation with Tiffanie. previously she had afib ablation with [facility] before 2009 had for unclear reasons was not placed on anticoagulation when he saw her. she got admitted to [facility] ED on 02/06/2023 following a fall. versus attributed to be a mechanical fall as she tripped on the corner curb. no loss of consciousness. CT of the head was negative for any hemorrhage. she had some lacerations which were sutured. She had a recent echocardiogram done which showed cardiomyopathy with a EF of 35 to 40%. [id number] at least 6 for age, gender, hypertension, [...] Intimate Partner Violence: Not At Risk (04/10/2023) [place] Safety & Environment Fear of Current or Ex-Partner: No Emotionally Abused: Not on file Physically Abused: Not on cliff (more content not included)... [facility] 08-08-2024 Evaluation note Diagnosis Onset Date Resolution Acid reflux disease acute August 08, 2024 2:23pm History of Clostridioides difficile colitis acute August 08, 2024 2:23pm Ulcerative (chronic) pancolitis with other complication acute August 08, 2024 2:23pm [facility] Work Phone: 1(282) 222-401802-24-2025 History of Present illness Narrative* Sruthi Calvillo [...] decreased vision or metamorphopsia. [id number] Telephone encounter Note* Telephone Encounter - Natalee Sampson - 05/06/2024 3:29 PM EST LVM [id number] Miscellaneous Notes* Telephone Encounter - Natalee Sampson - 05/06/2024 3:29 PM EST LVM * Telephone Encounter - Natalee Sampson - 05/02/2024 2:43 PM EST Lvm * Telephone Encounter - Natalee Sampson - 04/28/2024 4:20 PM EST Pt is a no show, lvm documented in this encounterHarry S. Truman [facility] Veterans' [id number] Telephone encounter Note* Telephone Encounter - Natalee Sampson - 05/02/2024 2:43 PM EST Lvm [facility] [id number] Telephone encounter Note* Telephone Encounter - Natalee Sampson - 04/28/2024 4:20 PM EST Pt is a no show, lvm [facility] [id number] NoteUT Electrophysiology Consult Note Reason for visit: Afib, s/p DCCV on amiodarone 05/11/23 03/15/24 Patient here for device check and follow up. Had echo yesterday. She is up 9# from apt 3 weeks ago. She's been taking lasix daily. Denies chest pain, SOB, palpitations, and bleeding on Eliquis. Patient underwent AV node ablation and BiV BIOPHYSICS TEACHER-P upgrade on 01/13/2024. Unfortunately she did not have locations well thresholds could be good without diaphragmatic stim. This has been a challenge and then subsequent follow-up the numbers are also high. However, hr EF has come to normal with BIOPHYSICS TEACHER. 12/08/23 patient underwent cardioversion on 07/22/2023 and [...] thyroid issues. She had previous seen a vanstone machine operator and an outlying facility and recently moved here about 2 years ago and has not established with a vanstone machine operator. She was seen by Ranjan SOSA and subsequently started on anticoagulation with Eliquis. previously she had afib ablation with [facility] before 2009 had for unclear reasons was not placed on anticoagulation when he saw her. she got admitted to [facility] on 02/06/2023 following a fall. versus attributed to be a mechanical fall as she tripped on the corner curb. no loss of consciousness. CT of the head was negative for any hemorrhage. she had some lacerations which were sutured. She had a recent echocardiogram done which showed cardiomyopathy with a EF of 35 to 40%. [id number] at least 6 for age, gender, hypertension, [...] Intimate Partner Violence: Not At Risk (04/10/2023) [place] Safety & Environment Fear of Current or [...] is ok Sulfa (Sulfon (more content not included)...[facility] 02-23-2024 NoteUT Electrophysiology Progress Note Reason [...] thyroid issues. She [facility] and recently moved here about 2 years ago and has not established with a vanstone machine operator. She was seen by Ranjan SOSA and subsequently started on anticoagulation with Eliquis. previously she had afib ablation with [facility] before 2009 had for unclear reasons was not placed on anticoagulation when he saw her. she got admitted to [facility] ED on 02/06/2023 following a fall. versus attributed to be a mechanical fall as she tripped on the corner curb. no loss of consciousness. CT of the head was negative for any hemorrhage. she had some lacerations which were sutured. She had a recent echocardiogram done which showed cardiomyopathy with a EF of 35 to 40%. [id number] at least 6 for age, gender, hypertension, [...] Last Year: Not (more content not included)... [facility]10-01-2024 NotePt is here for a one month follow up. Pt denies sob, chest pain, palpatations. Review of Systems Cardiovascular: Positive for leg swelling. Neurological: Positive for excessive daytime sleepiness. All other systems reviewed and are negative.[facility] 02-11-2024 History of Present illness Narrative* Uziel Camarena, CARLY - 02/11/2024 4:30 PM EDT Patient: Debra [...] Strain: Low Risk (04/10/2023) [facility] from [facility] Overall Financial Resource Strain (CARDIA) Difficulty of Paying Living Expenses: Not hard at all Food Insecurity: No Food Insecurity (04/10/2023) Received from [facility] Hunger Vital Sign Within the past 12 months, you worried that your food would run out before you got the money to buymore.: Never true Ran Out of Food in the Last Year: Not on file Transportation Needs: No Transportation Needs (04/10/2023) Received from [facility] Transportation In the past 12 months, has lack of transportation kept you from medical appointments or from getting medications?: No Lack of Transportation (Non-Medical): Not on file Physical Activity: Not on file Stress: Not on file Social Connections: Not on file Intimate Partner Violence: Not At Risk (04/10/2023) Received from [facility] [place] Safety & Environment Within the last [...] orthotics Uziel Camarena DPM documented in this encounterHarry S. Truman Memorial Veterans' [id number] NoteUT Electrophysiology Consult Note Reason for visit: [...] thyroid issues. She had previous seen a vanstone machine operator and an outlying facility and recently moved here about 2 years ago and has not established with a vanstone machine operator. She was seen by Ranjan SOSA and subsequently started on anticoagulation with Eliqukelly. previously she had afib ablation with [facility] before 2009 had for unclear reasons was not placed on anticoagulation when he saw her. she got admitted to [facility] ED on 02/06/2023 following a fall. versus attributed to be a mechanical fall as she tripped on the corner curb. no loss of consciousness. CT of the head was negative for any hemorrhage. she had some lacerations which were sutured. She had a recent echocardiogram done which showed cardiomyopathy with a EF of 35 to 40%. [id number] at least 6 for age, gender, hypertension, [...] (5' 4 ) W (more content not included)...[facility]08-28-2024 NotePt is here for a wound check. Pt denies chest pain, sob, palpitations. Pt is here for a ablation Review of Systems Cardiovascular: Positive for leg swelling. Neurological: Positive for excessive daytime sleepiness. All other systems reviewed and are negative.[facility] 01-13-2024 NoteAV NODE ABLATION & BIOPHYSICS TEACHER-P (BiV PACEMAKER) UPGRADE PROCEDURE NOTE DATE OF PROCEDURE: 01/13/2024 PERFORMING PHYSICIAN: Dr. Param Padron POMOLOGIST: Dr Dennys Moore CONSENT: Patient LOCATION: EP [...] c-diff, TIA, HLD had previous seen a vanstone machine operator. She was seen by Ranjan SOSA and subsequently started on anticoagulation with Eliqukelly. Previously she had afib ablation with [facility] before 2009 had for unclear reasons was not placed on anticoagulation when he saw her. She got admitted to [facility] ED on 02/06/2023 following a fall. She [...] venous access was acquired and therafter the Marcy sheath was advanced, and with manipulation, advanced wire into CS body. Mertens sheath was advanced into the body. I used an amplatz wire for support. [place] catheter was advanced and venogram was performed. [...] Following which, the pocket was revised for BIOPHYSICS TEACHER-P. Pocket hemostasis was secured and it was [...] on top. Lead parameters (more content not included)...[facility]08-21-20[facility] NotePatient: Debra García Procedure Information Date/Time: 01/13/24 1300 Procedures: AV node ablation - PC APPROVED to be done w biV upgrade Biventricular ICD upgrade - w av node ablation Location: [facility]TER AND CUTTER OPERATOR 1 / [facility] (Cath) Providers: Param Padron MD Clinical information reviewed: Physical Exam Airway Mallampati: II TM distance: >3 FB Neck ROM: full Cardiovascular Dental Pulmonary Abdominal Anesthesia Plan ASA 3 CSE Anesthetic plan and risks discussed with patient. Use of blood products discussed with patient who. Additional Equipment RequestsMary [facility] Hospital09-[facility] Evaluation note* Encounter Date Diagnosis Assessment Notes Treatment Notes Treatment Clinical Notes Jan, Visit for suture removal (ICD-10 - Z48.02) 3 sutures removed from R 3rd finger - tolerated well. Jan, Atrial fibrillation (ICD-10 - I48.91) BP low today. Pt states she just left Dr. Garay's office and she is scheduled for a heart cath. [employer] Other 02-07-2023 Evaluation note* Encounter Date Diagnosis [...] for Sleep study retitration and consultation with [facility]. Jun, Pain in right foot (ICD-10 - M79.671) Jun, Pain in left foot (ICD-10 - M79.672) Jun, Allergic rhinitis, unspecified seasonality, unspecified trigger (ICD-10 - J30.9) [employer] Other 04-27-2021 Telephone encounter Note* Telephone Encounter - Leonora Saunders - 09/18/2020 9:16 AM EDT Amiodarone was discontinued, last notes states the patient moved and has established care elsewhere. [id number] Miscellaneous Notes* Telephone Encounter - Leonora Saunders - 09/18/2020 9:16 AM EDT Amiodarone was discontinued, last notes states the patient moved and has established care elsewhere. documented in this encounterOhioHealthEvaluation note* Diagnosis PAF (paroxysmal atrial fibrillation) (HCC) Atrial fibrillation documented in this encounter [facility] noteNo InformationNoQuantuMDx Group Other Evaluation note* Diagnosis Onset Date Resolution Status Lumbar back pain acute [facility] Work Phone: Evaluation noteNo assessment information available [facility] Work Phone: Evaluation note* Diagnosis Metatarsal deformity, right- Primary Onychomycosis Dermatophytosis of nail Toe pain, bilateral Metatarsal deformity, left documented in this encounter [facility] HealthcareEvaluation note* Diagnosis Intermediate stage nonexudative age-related macular degeneration of right eye- Primary 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 documented in this encounter [facility] HealthcareEvaluation note* Diagnosis KCS (keratoconjunctivitis sicca)- Primary Keratoconjunctivitis sicca, not specified as Sjogren's documented in this encounter [facility] HealthcareEvaluation note* Diagnosis Onset Date Resolution Status Admit Date Acid reflux disease acute August 08, 2024 2:23pm History of Clostridioides difficile colitis acute August 08 2:23pm Ulcerative (chronic) pancoli tis with other complication acute August 082024 2:23pm [facility] Work Phone: History general Narrative - Reported* [...] HYSTERECTOMY 1970 Hospitalization History SEE SURGICAL HX [place] [employer] Other Assessments Diagnosis MCFP current use of ant iarrhythmic drug Diagnosis 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 Diagnosis PAF (paroxysmal atrial fibri llation) ([facility]) - Primary Atrial fibrillation 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 Paroxysmal atrial fibrillati on (HCC) 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, unspecified ty pe Obesity, unspecified classif ication, unspecified obesity type, unspecified whether serious comorbidity present Diagnosis Fecal impaction (HCC) Other impaction of intestine Diagnosis PAF (paroxysmal atrial fibrillation) ([facility])- Primary Atrial fibrillation 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, unspecified type MCFP current use of 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 drug 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 PAF (paroxysmal atrial fibrillation) (HCC) Atrial fibrillation Diagnosis PAF (paroxysmal atrial fibrillation) ([facility]) Atrial fibrillation MCFP current use of 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 drug 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, unspecified [...] are in the chart, copy placed in [facility] bin.) Pt currently has recall for [...] - 01/09/2017 10:52 AM EDT Rec'd from [facility] pt's Class III labwork dated 01/06/17 [...] - 09/29/2018 2:38 PM EDT [facility] [address] [facility] [address] [facility] [phone] Elect[facility] Office Visit Debra García (77 y.o. ( 1940) female) Date of service - 09/29/18 Primary healthcare providers: Nia Johnson MD (Family); Nia Johnson (Referring)? ASSESSMENT: 1. PAF (paroxysmal atrial fibrillation) (HCC) Stable. No clinical recurrence. Continue medical management. Follow-up EP clinic 1 year. 2. MCFP current use of 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 drug. Stable. Labs [...] rhythm, within normal limits Document generated by [employer] voice recognition dictation system to expedite reporting. Please excuse any syntax, spelling or grammatical errors caused by [employer] dictation. Medication list reviewed on 09/29/18 2:38 [...] on 09/29/18 2:38 PM Leonora Saunders MD, [facility], [facility]. Cardiac Electrophysiology, Cardiovascular Disease. [facility]. documented [...] reminder letter mailed with a list of [facility] lab facilities with a note instructing pt to call the facility prior to going to make sure it is open. documented in this encounter* Shelia Beckett PharmD - 01/13/2020 12:38 PM EDT Several attempts to call patient and Candice Barnett RN, was able to connect with her today and instructed patient of [facility]'s recs. See telephone encounter dated 01/12/20. * [...] up done Thank you * Shelia Beckett, PharmYimi - 01/09/2020 8:45 AM EDT Debra García [...] - 01/06/2020 10:40 AM EDT [facility] [address] [facility] [address] [facility] [phone] Cardiac Electrophysiology Clinic Office Visit Debra García (79 y.o. ( 1940) female) Date of service - 01/06/20 Primary healthcare providers: Nia Johnson MD (Family); No ref. provider found (Referring)? ASSESSMENT: 1. PAF (paroxysmal atrial fibrillation) (HCC) Stable. No clinical recurrence. Continue medical management. 2. 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 Stable. Continue follow-up in class III clinic. 4. 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, unspecified type Stable. Continue medical management. RECOMMENDATIONS: Patient is stable from a cardiac standpoint. Chest x-ray done today looks unremarkable. TSH and liver function studies will be drawn today, results are pending. Patient believes she is up-to-date on refills. Patient states that she has moved to [facility] and plans on transitioning all of her [...] rhythm. No acute changes. Document generated by [employer] voice recognition dictation system to expedite reporting. Please excuse any syntax, spelling or grammatical errors caused by [employer] dictation. Medication list reviewed on 01/06/20 10:40 [...] on 01/06/20 10:40 AM Leonora Saunders MD, [facility], [facility]. Cardiac Electrophysiology, Cardiovascular Disease. [facility]. documented [...] be sent through Care Everywhere. 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 Expl anation Advance Directives and Livin g Will 01/06/2020 9:39 AM Advance Directive Response Recorded Date/ Time Advance Directives No October 01, 2023 2:29pm Advance Directive Response Recorded Date/ Time Advance Directives No October 01, 2023 1:29pm Reason for Referral Status Reason Specialty Diagnoses / Procedures Referred By Contact Referred To Contact Pending Review Cardiology Diagnoses PAF (paroxysmal atrial fibrillation) ([facility]) Procedures ECG 12 Lead Leonora Saunders MD [address] [place] [address] Reason 08/15/22 [facility] Card iology at [facility]. No records here from [facility] Sulfonation Equipment Operator. Diagnosis 1 Atrial fibrillation (I48.91) Referral Organization [facility] [employer]Listens ernie Referring Provider First Name Boyd Referring Provider Last Name Dianna Referring Provider Specialty Family [facility] Referred Organization Unknown Facility Referred Provider Carl Kuhn Referred Provider Specialty Cardiology Referral Priority Routine Referral Appointment Date 2022-08-15 General Notes Cinthia Jacobson 10:24:39 AM >received today, no notes to send with referral. I called patient and left detailed message to see if she can provide me the doctors name she saw in [place]. will follow back up Cinthia Jacobson 07/03/2022 08:27:02 AM >referral faxed, but still waiting on a call back from patient about old records Cinthia Jacobson 07/10/2022 09:19:20 AM >faxed first attempt letter Clinical Notes F: [id number] GERARD Rajnan Gutierrezjames Reason *FU 07/30 CALL [facility] office - callouses and pain Diagnosis 1 Pain in right foot ( M79.671) Referral Organization [facility] [employer] ernie Referring Provider First Name Boyd Referring Provider Last Name Dianna Referring Provider Specialty Family [facility] Referred Organization [facility] Referred Provider Uziel Camarena Referred Address ,[place], [place],[address] Referred Provider Specialty Podiatry - S urgical Chiropody Referral Priority Routine General Notes Cinthia Jacobson 10:46:32 AM >received today, attachments made, notes locked, and referral faxed Cinthia Jacobson 07/09/2022 06:48:57 AM >faxed first attempt letter Cinthia Jacobson 07/16/2022 08:32:45 AM >faxed second attempt letter Cinthia Jacobson 07/23/2022 09:30:19 AM >faxed third attempt letter. will call next Clinical Notes [id number] Summary Purpose Family History No Family History Records Found Relationship Condition Age at Onset Recorded Date/T jessica father Unknown Not Specified Unknown Relationship Condition Age at Onset Recorded Date/T jessica father Unknown mother Unknown Chief Complaint and Reason for Visit Chief Complaint discuss PT/med gita w Reason for Visit Lumbar back pain [...] Associated Order(s): ED CONSULT TO MEDICAL - RETIREMENT PLAN SPECIALIST COMPLEX DISCHARGE Date: 07/02/2018 Time: 8:21 [...] home. Pass provided and pt taken to [facility]. Discharge Readiness Expected Discharge Date: 07/02/18 [facility] Disposition D/C Disposition: Home Agency/Destination: Home Transportation [...] section and content) DATE CREATED AUTHOR 10/16/2018 [facility] DATE CREATED AUTHOR AUTHOR'S ORGANIZ ATION 03/25/2019 [facility] DATE CREATED AUTHOR AUTHOR'S ORGANIZ ATION 02/07/2020 [facility] DATE CREATED AUTHOR AUTHOR'S ORGANIZ ATION 02/07/2020 [facility] DATE CREATED AUTHOR AUTHOR'S ORGANIZ ATION 10/01/2022 [facility] DATE CREATED AUTHOR AUTHOR'S ORGANIZ ATION 08/20/2023 [facility] DATE CREATED AUTHOR AUTHOR'S ORGANIZ ATION 07/19/2024 [facility] dical Specialists EPIC DATE CREATED AUTHOR AUTHOR'S ORGANIZ ATION 08/28/2024 [facility] ysician Group DATE CREATED AUTHOR AUTHOR'S ORGANIZ ATION 01/10/2025 [facility] Care Teams (unrecognized sec tion and content) Team Status: Active Member Role Status Dates Boyd Bustamante MD Primary Care Provider Active Team Status: Inactive Member Role Status Dates Boyd Bustamante MD Primary Care Provide r, Referring Provider Active Start: August 08, 2024 End: August 08, 2024 Kate Quiros DO Attending Provider Active St art: August 08, 2024 End: August 08, 2024 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 Relationship Specialty Start Date End Date Nia Johnson MD PCP - General 06/06/11 Leonora Saunders MD Sulfonation Equipment Operator Cardiology 02/20/15 Team Status: Active Member Role [...] April 14, 2024 End: April 14, 2024 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 Relationship Specialty Start Date End Date Boyd Bustamante MD [address] [facility] [place] [id number] PCP - General Family Medicine 12/11/22 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 Relationship Specialty Start Date End Date Boyd Bustamante MD [address] [facility] [place] [phone] PCP - General Family Medicine 12/11/22 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 Relationship Specialty Start Date End Date Boyd Bustamante MD [address] [facility] [place] [address] PCP - General Family Medicine 12/11/22 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 Relationship Specialty Start Date End Date Boyd Bustamante MD [address] [facility] [place] [address] PCP - General Family Medicine 12/11/22 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 Relationship Specialty Start Date End Date Boyd Bustamante MD [address] [facility] [place] [phone] PCP - General Family Medicine 12/11/22 Team [...] BE BASED ON THE PRIMARY CLINICAL RECORDS. [employer] provides no warranty or guarantee of the accuracy or completeness of information in this document.
== END 2025-01-10 15:46 | disposition home or self-care (01) ==
PROVIDERS: PCP Family Medicine; Visit Provider Internal Medicine Cardiovascular Disease
DX: Z95.0 Presence of cardiac pacemaker (principal)
CPT/HCPCS: 71046